=== PATIENT | female | born 1965 | race Two or more races ===

== ENCOUNTER 2022-12-29 08:55 | Outpatient (OUT) | payer OTHER, SELFPAY ==
[2022-12-29 09:39] LABS: Basophils Absolute Auto 0.1 10^3/uL (0.0-0.1); Basophils Percent Auto 0.8 % (0.2-2.0); Eosinophils Absolute Auto 0.3 10^3/uL (0.0-0.7); Eosinophils Percent Auto 3.4 % (0.9-7.0); Hematocrit 41.2 % (36.0-48.0); Hemoglobin 14.2 g/dL (12.0-16.0); Immature Granulocytes Abs Auto 0.07 10^3/uL (0.00-0.03); Immature Granulocytes Pct Auto 0.9 % (0.0-0.5); Lymphocytes Absolute Auto 1.5 10^3/uL (1.2-3.8); Lymphocytes Percent Auto 19.1 % (20.5-60.0); Mean Corpuscular HGB Conc 34.5 g/dL (29.9-35.2); Mean Corpuscular Hemoglobin 30.7 pg (26.7-34.0); Mean Platelet Volume 10.6 fL (9.5-13.5); Monocytes Absolute Auto 0.6 10^3/uL (0.3-0.8); Neutrophils Absolute Auto 5.3 10^3/uL (1.4-6.5); Neutrophils Percent Auto 67.8 % (43.0-75.0); Platelet Count 311 10^3/uL (150-450); Red Blood Count 4.63 10^6/uL (4.20-5.40); Red Cell Distribution Width 12.5 % (11.0-15.0); White Blood Count 7.7 10^3/uL (4.0-11.0)
[2022-12-29 10:01] LABS: Alanine Aminotransferase 95 U/L (14-59); Albumin Globulin Ratio 0.8; Albumin Level 3.4 g/dL (3.4-5.0); Alkaline Phosphatase 137 U/L (46-116); Anion Gap 10.9; Aspartate Amino Transferase 47 U/L (15-37); BUN Creatinine Ratio 15.1; Bilirubin Total 0.3 mg/dL (0.2-1.0); Calcium 9.2 mg/dL (8.5-10.1); Carbon Dioxide 28.3 mmol/L (21.0-32.0); Chloride 102 mmol/L (98-107); Chol HDL Ratio 3.3; Cholesterol 164 mg/dL (<=200); Estimated GFR (African America >60 (>=60); Estimated GFR (Non-African Ame >60 (>=60); Globulin 4.3 g/dL; Glucose 106 mg/dL (74-106); HDL Cholesterol 49 mg/dL (40-60); LDL Cholesterol Calculated 92.4 mg/dL; Potassium 4.2 mmol/L (3.5-5.1); Sodium 137 mmol/L (136-145); Total Protein 7.7 g/dL (6.4-8.2); Triglycerides 113 mg/dL (<=150); VLDL CHOLESTEROL 22.6 mg/dL
[2022-12-29 10:06] LABS: Estimated Average Glucose 140 mg/dL; Glycohemoglobin A1C 6.5 % (4.5-6.2)
== END 2022-12-29 08:56 ==
DX: E11.9 Type 2 diabetes mellitus without complications (principal)
CPT/HCPCS: 36415; 80053; 80061; 83036; 85025

== ENCOUNTER 2023-02-16 06:46 | Emergency (ER) | payer OTHER, SELFPAY ==
[2023-02-16] VITALS (8 sets, daily range): BP systolic 153–178; BP diastolic 86–109; PULSE 71; RESP 16; TEMP 36.6; O2SAT 95; BMI 34.8
--- NOTE | 2023-02-16 07:21 | XR_ITS ---
The [address] [address] Patient Name: SANDRO STEELE MRN: [id number] date: 1965 Sex: F Assigned Patient Location: ER Current Patient Location: ER Accession/Order Number: [id number] Exam Date: 02/16/2023 07:47 Report Date: 02/16/2023 07:58 At the request of: EMPERATRIZ MEDRANO Procedure: XR chest 1V EXAM: XR chest 1V HISTORY: . chest pain . COMPARISON: 01/13/2021 TECHNIQUE: Single view of the chest FINDINGS: Heart and vascularity are unremarkable. Lungs are free of focal infiltrates. EKG leads overlie the chest. XR/XR chest 1V IMPRESSION: No acute heart or lung disease identified. Electronically authenticated by: KAMERON SURESH Date: 02/16/2023 07:58
--- NOTE | 2023-02-16 07:21 | ECG_ITS ---
The [facility] Test Date: 2023-02-16 Pat Name: SANDRO STEELE Department: Room: - Gender: Female Research Statistician: : 1965 Requested By: Order Number: [id number] Reading MD: CHUCK KRAMER Measurements Intervals [place] Rate: 72 P: 40 ID: 144 QRS: -33 QRSD: 90 T: 10 QT: 372 QTc: 397 Interpretive Statements 1100 Sinus rhythm 2420 RSR (QR) in lead V1/V2, consistent with right ventricular conduction delay 5233 Voltage criteria for LVH 7200 Abnormal left axis deviation 9150 abnormal ECG No previous ECG available for comparison Electronically Signed On 02-17-2023 7:04:05 EDT by CHUCK KRAMER
[2023-02-16 07:42] LABS: Basophils Absolute Auto 0.1 10^3/uL (0.0-0.1); Basophils Percent Auto 0.8 % (0.2-2.0); Eosinophils Absolute Auto 0.2 10^3/uL (0.0-0.7); Hemoglobin 14.7 g/dL (12.0-16.0); Immature Granulocytes Abs Auto 0.06 10^3/uL (0.00-0.03); Immature Granulocytes Pct Auto 0.8 % (0.0-0.5); Lymphocytes Absolute Auto 1.3 10^3/uL (1.2-3.8); Lymphocytes Percent Auto 17.1 % (20.5-60.0); Mean Corpuscular HGB Conc 34.2 g/dL (29.9-35.2); Mean Corpuscular Hemoglobin 30.4 pg (26.7-34.0); Monocytes Absolute Auto 0.7 10^3/uL (0.3-0.8); Monocytes Percent Auto 9.5 % (1.7-12.0); Neutrophils Absolute Auto 5.3 10^3/uL (1.4-6.5); Neutrophils Percent Auto 68.8 % (43.0-75.0); Platelet Count 308 10^3/uL (150-450); Red Blood Count 4.83 10^6/uL (4.20-5.40); Red Cell Distribution Width 12.7 % (11.0-15.0); White Blood Count 7.7 10^3/uL (4.0-11.0)
[2023-02-16 07:53] LABS: Alanine Aminotransferase 58 U/L (14-59); Albumin Globulin Ratio 0.8; Albumin Level 3.4 g/dL (3.4-5.0); Alkaline Phosphatase 138 U/L (46-116); Anion Gap 12.4; Aspartate Amino Transferase 24 U/L (15-37); BUN Creatinine Ratio 16.5; Bilirubin Total 0.3 mg/dL (0.2-1.0); Calcium 9.3 mg/dL (8.5-10.1); Carbon Dioxide 27.6 mmol/L (21.0-32.0); Chloride 104 mmol/L (98-107); Estimated GFR (African America >60 (>=60); Estimated GFR (Non-African Ame >60 (>=60); Globulin 4.4 g/dL; Glucose 112 mg/dL (74-106); Sodium 140 mmol/L (136-145); Total Protein 7.8 g/dL (6.4-8.2); Troponin I High Sensitivity 4.5 pg/mL (4.0-51.3)
--- NOTE | 2023-02-16 09:08 | ED.GENADUL1 ---
HPI - General Adult General Chief complaint: Chest Pain Stated complaint: CHEST PAIN Time Seen by Provider: 02/16/23 08:06 Mode of arrival: walk-in History of Present Illness HPI narrative: patient is a 57-year-old female who is presenting to the Emergency Room today with 6-7 days of midsternal chest pain/heartburn and intermittent dizziness. The pain that she is experiencing is intermittent. Patient was admitted to the hospital in September and had a cardiac stress test. Patient was having similar symptoms at that time as well. Patient does have a PCP. Patient does take medication for diabetes and high blood pressure. Stress test showed no acute findings. patient has missed multiple days of work and is requesting a work note since last Wednesday. Patient has not called her PCP. Patient thinks she may have heartburn, she is taking nothing [id number] to help with her symptoms. Patient has a recent traveling. Patient nonsmoker. 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 No dull pain, nausea or vomiting. Patient's pain stays midsternal midepigastric and does not radiate anywhere. No rash. Patient has history of psoriasis. No acute complaints. Patient has had a cardiac stress test and echocardiogram, she's never had a cardiac catheter. Nonsmoker, no cocaine use, no significant family history of cardiac testing early age. All systems are negative except as noted/marked. All systems reviewed and otherwise negative. . Nurses note and vital signs reviewed and patient is not hypoxic. General: The patient appears well and in no apparent distress. Patient is resting comfortably on cart. Patient is not toxic, lethargic, or listless Skin: Warm, dry, no pallor noted. There is no rash noted. No petechiae, purpura. Head: Normocephalic, atraumatic Eye: Normal conjunctiva, no drainage, EOMI. PERRL Ears, Nose, Mouth, and Throat: oral mucosa is moist. Nares patent. Mouth without vesicles. Cardiovascular: Regular Rate and Rhythm, no murmur, gallop, rub. no reproducible tenderness to palpation to the midsternal area, no rash. No anterior, lateral, posterior chest wall pain. Respiratory: Patient is in no distress, no accessory muscle use, lungs are clear to auscultation, no wheezing, rales or rhonchi Back: non-tender, no CVA tenderness bilaterally to percussion. No CT LS midline pain GI: soft, mild midepigastric tenderness palpation that is reproducible, no peritoneal signs, no flank pain bilateral, no tenderness to palpation, no masses appreciated. No rebound, guarding, or rigidity noted. No flank pain bilateral, No distention Musculoskeletal: Patient has full range of motion of all of the extremities, no motor, sensory, or focal neurological deficits Neurological: A&O x3, normal speech Psychiatric: Cooperative Related Data Home Medications Medication Instructions Recorded Confirmed carvedilol 12.5 mg tablet 12.5 mg PO Q12H 02/16/23 02/16/23 escitalopram oxalate 10 mg tablet 10 mg PO DAILY 02/16/23 02/16/23 metformin 500 mg tablet 500 mg PO BID 02/16/23 02/16/23 Previous Rx's Medication Instructions Recorded famotidine 20 mg tablet (Pepcid) 20 mg PO DAILY 20 days #20 tabs 02/16/23 Allergies Allergy/AdvReac Type Severity Reaction Status Date / Time No Known Drug Allergies Allergy Verified 02/16/23 06:57 Exam Constitutional Vital Signs, click to edit/add: Last Vital Signs Temp 98 F 02/16/23 06:55 Pulse 71 02/16/23 06:55 Resp 16 02/16/23 06:55 BP 153/86 H 02/16/23 08:30 Pulse Ox 95 02/16/23 06:55 O2 Del Method Room Air 02/16/23 06:55 Course Vital Signs Vital signs: Vital Signs Temperature 98 F 02/16/23 06:55 Pulse Rate 71 02/16/23 06:55 Respiratory Rate 16 02/16/23 06:55 Blood Pressure 178/109 H 02/16/23 06:55 Pulse Oximetry 95 02/16/23 06:55 Oxygen Delivery Method Room Air 02/16/23 06:55 Temperature 98 F 02/16/23 06:55 Pulse Rate 71 02/16/23 06:55 Respiratory Rate 16 02/16/23 06:55 Blood Pressure 153/86 H 02/16/23 08:30 Pulse Oximetry 95 02/16/23 06:55 Oxygen Delivery Method Room Air 02/16/23 06:55 Medical Decision Making MDM Narrative Medical decision making narrative: patient's chest x-ray, troponin, lab work showed no acute changes. Patient has midsternal and midepigastric intermittent tenderness from past 6 days. Patient will follow-up with PCP, patient was referred to cardiology as well. patient will be started on Pepcid for 2 weeks, using Maalox or Mylanta needed to see if this makes a difference. Patient is asking for a work note since last Wednesday, February 10. Patient was given a work note for today, she can return to work tomorrow. Patient was encouraged to start taking a baby aspirin a day. Patient increase fluids. No indication for admission at this time. Patient had questionable half millimeter elevation in V2, EKG was repeated no acute changes, but there is no concurrent ST elevation, no reciprocal changes, I do not believe this is of clinical significance at this time. Patient has no heavy chest pressure, shortness of breath, radiating pain. Patient looks well. Patient agrees with discharge. Medical Records Medical records reviewed: Yes I reviewed the patient's medical records Medical records narrative: reviewed stress test from October 12 of this year. Lab Data Lab results reviewed: Yes I reviewed the patient's lab results Labs: Lab Results 02/16/23 Range/Units 07:02 WBC 7.7 (4.0-11.0) 10^3/uL RBC 4.83 (4.20-5.40) 10^6/uL Hgb 14.7 (12.0-16.0) g/dL Hct 43.0 (36.0-48.0) % MCV 89.0 (81.0-99.0) fL MCH 30.4 (26.7-34.0) pg MCHC 34.2 (29.9-35.2) g/dL RDW 12.7 (11.0-15.0) % Plt Count 308 (150-450) 10^3/uL MPV 11.0 (9.5-13.5) fL Neut % (Auto) 68.8 (43.0-75.0) % Lymph % (Auto) 17.1 L (20.5-60.0) % Gray % (Auto) 9.5 (1.7-12.0) % Eos % (Auto) 3.0 (0.9-7.0) % Baso % (Auto) 0.8 (0.2-2.0) % Neut # (Auto) 5.3 (1.4-6.5) 10^3/uL Lymph # (Auto) 1.3 (1.2-3.8) 10^3/uL Gray # (Auto) 0.7 (0.3-0.8) 10^3/uL Eos # (Auto) 0.2 (0.0-0.7) 10^3/uL Baso # (Auto) 0.1 (0.0-0.1) 10^3/uL Abs Immat Gran (auto) 0.06 H (0.00-0.03) 10^3/uL Imm/Tot Granulo (auto) 0.8 H (0.0-0.5) % Sodium 140 (136-145) mmol/L Potassium 4.0 (3.5-5.1) mmol/L Chloride 104 (98-107) mmol/L Carbon Dioxide 27.6 (21.0-32.0) mmol/L Anion Gap 12.4 BUN 13.0 (7.0-18.0) mg/dL Creatinine 0.79 (0.55-1.02) mg/dL Est GFR ( Amer) >60 (>=60) Est GFR (Non-Af Amer) >60 (>=60) BUN/Creatinine Ratio 16.5 Glucose 112 H (74-106) mg/dL Calcium 9.3 (8.5-10.1) mg/dL Total Bilirubin 0.3 (0.2-1.0) mg/dL AST 24 (15-37) U/L ALT 58 (14-59) U/L Alkaline Phosphatase 138 H (46-116) U/L Troponin I High Sens 4.5 (4.0-51.3) pg/mL Total Protein 7.8 (6.4-8.2) g/dL Albumin 3.4 (3.4-5.0) g/dL Globulin 4.4 g/dL Albumin/Globulin Ratio 0.8 ECG Data Attestation: I personally reviewed and interpreted this ECG as follows: Interpretation: EKG interpretation. EKG #1. Normal sinus rhythm at 72 beats a minute. Normal axis deviation. No acute ST elevation, no acute ectopy. Questionable half millimeter elevation in V2, no reciprocal changes, no other signs of ST elevation. EKG will be repeated. EKG #2. Normal sinus rhythm at 65 beats a minute. Normal axis deviation. No acute ST elevation, no acute ectopy. QTC of 397. Half millimeter elevation is still V2, but no other acute changes, no reciprocal changes. Discharge Plan Discharge Chief Complaint: Chest Pain Clinical Impression: Gastritis, Atypical chest pain, Chest pain Patient Disposition: Home, Self-Care Condition: Fair Prescriptions / Home Meds: New famotidine [Pepcid] 20 mg tablet 20 mg PO DAILY 20 Days Qty: 20 0RF No Action carvedilol 12.5 mg tablet 12.5 mg PO Q12H escitalopram oxalate 10 mg tablet 10 mg PO DAILY metformin 500 mg tablet 500 mg PO BID Instructions: Chest Pain (ED), Gastritis (ED) Additional Instructions: use [id number] Maalox or Mylanta if needed for heartburn. Follow-up with PCP and he may need to be referred to chair car attendant if indicated. Start taking Pepcid daily for 2 weeks to see if this helps with some of her symptoms. Stand Alone Forms: Work/School Release, Portal Instructions Referrals: Davin Mosquera MD [Physician] - 1 week Physician,Non-Staff, [Primary Care Provider] - 1 week Discharge Date/Time: 02/16/23 09:10
--- NOTE | 2023-02-16 09:19 | ECG_ITS ---
The [facility] Test Date: 2023-02-16 Pat Name: SANDRO STEELE Department: Room: - Gender: Female Seismograph Shooter: : 1965 Requested By: [id number] Order Number: [id number] Reading MD: CHUCK KRAMER Measurements Intervals [place] Rate: 65 P: 46 ND: 152 QRS: -31 QRSD: 88 T: -1 QT: 386 QTc: 397 Interpretive Statements 1100 Sinus rhythm 2420 RSR (QR) in lead V1/V2, consistent with right ventricular conduction delay 5233 Voltage criteria for LVH 7200 Abnormal left axis deviation 9150 abnormal ECG Compared to ECG 02/16/2023 06:57:21 Myocardial infarct finding no longer present Electronically Signed On 02-17-2023 7:04:22 EDT by CHUCK KRAMER
== END 2023-02-16 09:10 | disposition home or self-care (01) ==
PROVIDERS: Emergency Provider Emergency Medicine
DX: R07.89 Other chest pain (principal); K29.70 Gastritis, unspecified, without bleeding; E11.9 Type 2 diabetes mellitus without complications; I10 Essential (primary) hypertension; L40.9 Psoriasis, unspecified; Z79.899 Other long term (current) drug therapy; Z79.84 Long term (current) use of oral hypoglycemic drugs
CPT/HCPCS: 36415; 71045; 80053; 84484; 85025; 93005; 99285

== ENCOUNTER 2023-04-20 09:11 | Outpatient (OUT) | payer OTHER, SELFPAY ==
[2023-04-20 10:38] LABS: Hematocrit 41.9 % (36.0-48.0); Hemoglobin 13.7 g/dL (12.0-16.0); Mean Corpuscular HGB Conc 32.7 g/dL (29.9-35.2); Mean Corpuscular Hemoglobin 29.9 pg (26.7-34.0); Mean Corpuscular Volume 91.5 fL (81.0-99.0); Platelet Count 288 10^3/uL (150-450); Red Blood Count 4.58 10^6/uL (4.20-5.40); Red Cell Distribution Width 12.8 % (11.0-15.0); White Blood Count 6.6 10^3/uL (4.0-11.0)
[2023-04-20 12:05] LABS: Estimated Average Glucose 148 mg/dL; Glycohemoglobin A1C 6.8 % (4.5-6.2)
[2023-04-20 15:52] LABS: Alanine Aminotransferase 63 U/L (14-59); Anion Gap 10.6; Aspartate Amino Transferase 24 U/L (15-37); Bilirubin Total 0.3 mg/dL (0.2-1.0); Calcium 8.5 mg/dL (8.5-10.1); Carbon Dioxide 27.8 mmol/L (21.0-32.0); Chloride 104 mmol/L (98-107); Estimated GFR (African America >60 (>=60); Estimated GFR (Non-African Ame >60 (>=60); Glucose 170 mg/dL (74-106); Potassium 4.4 mmol/L (3.5-5.1); Sodium 138 mmol/L (136-145)
[2023-04-20 15:53] LABS: Albumin Globulin Ratio 0.8; Albumin Level 3.3 g/dL (3.4-5.0); Alkaline Phosphatase 152 U/L (46-116); Chol HDL Ratio 3.7; Cholesterol 173 mg/dL (<=200); Globulin 4.1 g/dL; HDL Cholesterol 47 mg/dL (40-60); Total Protein 7.4 g/dL (6.4-8.2); Triglycerides 125 mg/dL (<=150)
== END 2023-04-20 09:12 | disposition home or self-care (01) ==
LOC: LAB 09:12
PROVIDERS: PCP Physician Assistant; Visit Provider Physician Assistant
DX: E11.9 Type 2 diabetes mellitus without complications (principal)
CPT/HCPCS: 36415; 80053; 80061; 83036; 85027

== ENCOUNTER 2023-05-14 11:14 | Outpatient (OUT) | payer OTHER, SELFPAY ==
--- NOTE | 2023-05-14 11:20 | MM_ITS ---
Patient: SANDRO STEELE Exam Date: 05/14/2023 : 1965 Gender:F Ordering : MR. Ming Goldstein PA-C Admission #: [id number] Family : Order #: [id number] CLICK HERE TO VIEW EXAM RADIOLOGY REPORT PROCEDURE: MM TOMOSYNTHESIS SCREENING BI COMPARISON: None. INDICATIONS: Screening Calculator Name NCI Breast Cancer Risk Assessment Tool 5 Year Breast Cancer Risk 1.30% Lifetime Breast Cancer Risk 7.00% Personal Breast Cancer No Personal Ovarian Cancer No Treatments None Family Cancers None LOCATION: [facility] BREAST COMPOSITION: Heterogeneously dense,which may obscure small masses. FINDINGS: DIAGNOSTIC CATEGORY 2--BENIGN FINDING: RIGHT BREAST: No significant suspicious finding. Scattered benign-appearing lymph nodes are present. LEFT BREAST: No significant suspicious finding. Scattered benign-appearing lymph nodes are present. RECOMMENDATIONS: ROUTINE MAMMOGRAM AND CLINICAL EVALUATION IN 12 MONTHS. PLEASE NOTE: A NORMAL MAMMOGRAM DOES NOT EXCLUDE THE POSSIBILITY OF BREAST CANCER. A CLINICALLY SUSPICIOUS PALPABLE LUMP SHOULD BE BIOPSIED. Dictated by: Dell Winn M.D. on 05/18/2023 at 13:28 Approved by: Dell Winn M.D. on 05/18/2023 at 13:41
== END 2023-05-14 11:15 | disposition home or self-care (01) ==
LOC: MAMMO 11:14
PROVIDERS: PCP Physician Assistant; Visit Provider Physician Assistant
DX: Z12.31 Encounter for screening mammogram for malignant neoplasm of breast (principal)
CPT/HCPCS: 77063; 77067

== ENCOUNTER 2023-06-26 08:01 | Outpatient (OUT) | payer OTHER, SELFPAY ==
[2023-06-26 08:26] LABS: Basophils Absolute Auto 0.1 10^3/uL (0.0-0.1); Basophils Percent Auto 0.8 % (0.2-2.0); Eosinophils Absolute Auto 0.3 10^3/uL (0.0-0.7); Hematocrit 43.3 % (36.0-48.0); Hemoglobin 14.2 g/dL (12.0-16.0); Immature Granulocytes Abs Auto 0.06 10^3/uL (0.00-0.03); Immature Granulocytes Pct Auto 0.8 % (0.0-0.5); Lymphocytes Absolute Auto 1.4 10^3/uL (1.2-3.8); Lymphocytes Percent Auto 17.4 % (20.5-60.0); Mean Corpuscular HGB Conc 32.8 g/dL (29.9-35.2); Mean Corpuscular Hemoglobin 29.8 pg (26.7-34.0); Mean Platelet Volume 10.5 fL (9.5-13.5); Monocytes Absolute Auto 0.6 10^3/uL (0.3-0.8); Neutrophils Absolute Auto 5.4 10^3/uL (1.4-6.5); Platelet Count 292 10^3/uL (150-450); Red Blood Count 4.76 10^6/uL (4.20-5.40); Red Cell Distribution Width 12.6 % (11.0-15.0); White Blood Count 7.8 10^3/uL (4.0-11.0)
[2023-06-26 08:34] LABS: Estimated Average Glucose 154 mg/dL
[2023-06-26 09:14] LABS: Alanine Aminotransferase 66 U/L (14-59); Albumin Globulin Ratio 0.8; Albumin Level 3.3 g/dL (3.4-5.0); Alkaline Phosphatase 157 U/L (46-116); Anion Gap 12.9; Aspartate Amino Transferase 27 U/L (15-37); Bilirubin Total 0.3 mg/dL (0.2-1.0); Calcium 8.6 mg/dL (8.5-10.1); Carbon Dioxide 25.5 mmol/L (21.0-32.0); Chloride 103 mmol/L (98-107); Chol HDL Ratio 4.5; Cholesterol 190 mg/dL (<=200); Estimated GFR (African America >60 (>=60); Estimated GFR (Non-African Ame >60 (>=60); Glucose 156 mg/dL (74-106); HDL Cholesterol 42 mg/dL (40-60); Potassium 4.4 mmol/L (3.5-5.1); Sodium 137 mmol/L (136-145); Total Protein 7.3 g/dL (6.4-8.2); Triglycerides 187 mg/dL (<=150); VLDL CHOLESTEROL 37.4 mg/dL
== END 2023-06-26 08:02 | disposition home or self-care (01) ==
LOC: LAB 08:02
PROVIDERS: PCP Physician Assistant; Visit Provider Physician Assistant
DX: E11.9 Type 2 diabetes mellitus without complications (principal)
CPT/HCPCS: 36415; 80053; 80061; 83036; 85025

== ENCOUNTER 2023-07-24 10:00 | Outpatient (OUT) | payer OTHER, SELFPAY ==
--- OUTSIDE RECORDS SUMMARY | 2023-07-24 10:02 | XMS_ITS | CCD ---
Author Name Unknown Address [address] [place] [address] Organization [facility] Care Team Providers Care Prosthetic Makeup Designer Name Role Phone Unavailable Primary Care Provider UnavailTITA Keenan Attending Unavailable MORALES ANGULO Primary Care Physician Siobhan Meyers Unavailable Cassandra Dumont Unavailable DR ROMAIN CAN Consulting Unavailyoni geller ROSE MARIE ., FELIBERTO Attending Unavailable REQUEST, NONE LISTED Primary Care Unavaila ble ROSE MARIE ., FELIBERTO Admitting Unavailable DR DELL WINN Consulting Unavailable TERESSA OLIVEROS Consulting Unavailable ROSE MARIE Adair, FELIBERTO Consulting Unavailable TERESSA OLIVEROS Attending Unavailable TERESSA OLIVEROS Attending Unavailable PACHECO BURNS Attending Unavailable Unavailable Primary Care Provider UnavailSamra Sexton Unavailable CHRIS DHILLON Attending Unavailable Medications Current Medications Medication Drug Class(es) Dates Sig (Normalized) Sig (Original) carvedilol (1 source) alpha-Adrenergic Ann, beta-Adrenergic Ann Carvedilol Active escitalopram 10 mg oral tablet (1 source) Serotonin Reuptake Inhibitor Escitalopram Oxalate 10 MG Oral for 90 Active hydroCHLOROthiazide 12.5 mg / losartan potassium 50 mg oral tablet (1 source) Thiazide Diuretic, Angiotensin 2 Receptor Ann take 1 tablet by mouth every twenty-four hours Losartan Potassium-HCTZ 50-12.5 MG 1 tablet Orally Once a day Active Hydrochlorothiazide-12. 5 mg 12.5 mg (2 sources) take 1 tablet by mouth once daily Hydrochlorothiazide-1 2.5 mg 12.5 mg 1 tablet Orally Once a day Active hydrocortisone 10 mg/ml / neomycin 3.5 mg/ml / polymyxin b 39891 unt/ml otic solution (1 source) Aminoglycoside Antibacterial, Polymyxin-class Antibacterial, Corticosteroid Start: 09-20-19 Uqbjzkzp-Ibxpistnm-SM 3.5-02221-1 4 drops into affected ear Otic Three times a day for 7 day(s) Aug, Active hydrOXYzine (1 source) Antihistamine hydrOXYzine HCl Active Losartan (1 source) Angiotensin 2 Receptor Ann Losartan Potassium Active methylPREDNISolone 4 mg oral tablet (1 source) Corticosteroid Start: 09-20-19 methylPREDNISolone 4 MG as directed Orally Once a day for 6 days Aug, Active ondansetron 4 mg oral tablet (2 sources) Serotonin-3 Receptor Antagonist Start: 06-30-20 take 1 tablet by mouth every eight hours as needed Ondansetron HCl 4 MG 1 tablet Orally every 8 hours as needed for 7 days Jun, Active Start: 12-18-2021 take 1 tablet by bambi th every eight hours as needed Zofran ODT 4 MG 1 tablet on the tongue and allow to dissolve Orally every 8 hrs as needed for 4 days November, Active SITagliptin (1 source) Dipeptidyl Peptidase 4 Inhibitor Januvia Active Completed/Discontinued Medications Medication Drug Class(es) Dates Sig (Normalized) Sig (Original) iopamidol (ISOVUE-370) 76 % injection 100 mL (1 source) Start: 01-13-2021 End: 01-13-2021 iopamidol (ISOVUE-370) 76 % injection 100 mL Problems Active Problems Problem Classification Problem Date Documented Da te Episodic/Chronic Anxiety disorders (1 source) Anxiety state; Translations: [Generalized anxiety disorder] Chronic Diabetes mellitus with complications (1 source) Type 2 diabetes mellitus with hyperglycemia; Translations: [TYPE 2 DM W/HYPERGLYCEMIA] Onset: 10-15-2022 Chronic Disorders of lipid metabolism (1 source) Hyperlipidemia, unspecified; Translations: [HYPERLIPIDEMIA UNSPECIFIED] Onset: 10-15-2022 Chronic Essential hypertension (3 sources) Essential (primary) hypertension; Translations: [Hypertensive disorder] Onset: 10-15-2022 Chronic Immunizations and screening for infectious disease (5 sources) Suspected clinical finding; Translations: [Contact with and (suspected) exposure to other viral communicable diseases] Episodic Nausea and vomiting (1 source) Nausea Episodic Nonspecific chest pain (7 sources) Chest pain; Translations: [Chest pain, unspecified] Onset: 10-12-2022 Episodic Other aftercare (1 source) Other watermelon inspector (current) drug therapy; Translations: [OTH HALF-WAY CURRENT DRUG THERAPY] Onset: 10-15-2022 Episodic Other ear and sense organ disorders (1 source) Other infective otitis externa, bilateral Episodic Other ear and sense organ disorders (1 source) Impacted cerumen, left ear Episodic Other liver diseases (1 source) Abnormal levels of other serum enzymes; Translations: [ABNORMAL LEVELS OTHER SERUM ENZYMES] Onset: 10-15-2022 Episodic Other lower respiratory disease (4 sources) Cough; Translations: [Cough] Episodic Other upper respiratory infections (4 sources) Acute upper respiratory infection, unspecified; Translations: [Acute laryngitis] Episodic Substance-related disorders (1 source) Nicotine dependence, cigarettes, uncomplicated; Translations: [NICOTINE DEPEND CIGARETTES UNCOMP] Onset: 10-15-2022 Chronic Unclassified (1 source) CONTACT W/AND (SUSP) EXPOS COVID-19; Translations: [CONTACT W/AND (SUSP) EXPOS COVID-19] Onset: 10-15-2022 Past or Other Problems Problem Classification Problem Date Documented Da te Episodic/Chronic Unclassified (1 source) Exposure to 2019 novel coronavirus; Translations: [Contact with and (suspected) exposure to COVID19] Unclassified (1 source) Cough R05.9 Onset: 12-18-2021 Resolved: 12-18-2021 Viral infection (1 source) COVID-19 Onset: 12-18-2021 Resolved: 12-18-2021 Results Test Name Value Interpretation Reference Range Facility COVID/FLU RT-PCRon 3 SARS-CoV-2 (COVID-19) RNA RIDGE+probe Ql (Unsp spec) Negative [facility] Other COVID/FLU RT-PCR Negative [facility] [employer] Other Office Visiton 01-05-2023 Follow-up visit [id number] Sandro Severino 1965 F Date Provider Department Center 01/05/2023 Javier-TERESSA OLIVEROS CARD [facility] No family history on file Level of Service:73437 [place] OFFICE/OUTPATIENT ESTABLISHED LOW MDM 20-29 MIN Reason for Visit and Comments: Hypertension [182717] Normal [facility] 36on 12-24-2022 36 Her BP is more often running above goal. Would like to see her average BP running <130/90. We can either have her resume her losartan/hydrochloro thiazide or we can increase her carvedilol to 12.5mg BID. Normal [facility] Office Visiton 12-09-2022 Follow-up visit [id number] Sandro Severino 1965 F Date Provider Department Center 12/09/[address] [facility] No family history on file Level of Service:51862 [place] OFFICE/OUTPATIENT ESTABLISHED MOD MDM 30-39 MIN Reason for Visit and Comments: Follow-up [402452] - 1 mo. Follow up [facility] Office Visiton 10-30-2022 Follow-up visit [id number] Sandro Severino 1965 F Date Provider Department Center 10/30/2022 3848-PACHECO BURNS [facility] No family history on file Level of Service:23992 [place] OFFICE/OUTPATIENT ESTABLISHED MOD MDM 30-39 MIN Reason for Visit and Comments: Chest Pain [160028] - f/u tbh hypertension chest pain pt states last night she was having some chest pain and headache last night Normal [facility] CBC AUTO DIFFon 10-13-2022 BASO # 0.1 103/ul Normal 0.0-0.1 [facility] Comment on above: Performed By: #### P OCGLUC #### [facility] [address] [place] [address] Dr. Gibson Jin Basophils/100 WBC (Bld) 1.0 % Normal 0.2-2.0 [facility] Comment on above: Performed By: #### P OCGLUC #### [facility] [address] [place] [address] Dr. Gibson Jin EO # 0.2 103/ul Normal 0.0-0.7 [facility] Comment on above: Performed By: #### P OCGLUC #### [facility] [address] [place] [address] Dr. Gibson Jin Eosinophils/100 WBC (Bld) 3.9 % Normal 0.9-7.0 [facility] Comment on above: Performed By: #### P OCGLUC #### [facility] [address] [place] [address] Dr. Gibson Jin Erythrocyte distribution width (RBC) [Ratio] 12.4 % Normal 11.0-15.0 [facility] Comment on above: Performed By: #### P OCGLUC #### [facility] [address] [place] [address] Dr. Gibson Jin Hematocrit (Bld) [Volume fraction] 43.4 % Normal 36.0-48.0 [facility] Comment on above: Performed By: #### P OCGLUC #### [facility] [address] [place] [address] Dr. Gibson Jin Hemoglobin (Bld) [Mass/Vol] 14.7 g/dL Normal 12.0-16.0 [facility] Comment on above: Performed By: #### P OCGLUC #### [facility] [address] [place] [address] Dr. Gibson Jin IG # 0.09 10e3/ul Critically high 0.00-0.03 [facility] Comment on above: Performed By: #### P OCGLUC #### [facility] [address] [place] [address] Dr. Gibson Jin IG % 1.5 % Critically high 0.0-0.5 [facility] Comment on above: Performed By: #### P OCGLUC #### [facility] [address] [place] [address] Dr. Gibson Jin LYMPH # 1.2 103/ul Normal 1.2-3.8 [facility] Comment on above: Performed By: #### P OCGLUC #### [facility] [address] [place] [address] Dr. Gibson Jin Lymphocytes/100 WBC (Bld) 19.4 % Critically low 20.5-60.0 [facility] Comment on above: Performed By: #### P OCGLUC #### [facility] [address] [place] [address] Dr. Gibson Jin MANUAL DIFF REQ NO Normal [facility] Comment on above: Performed By: #### P OCGLUC #### [facility] [address] [place] [address] Dr. Gibson Jin MCH (RBC) [Entitic mass] 30.2 pg Normal 26.7-34.0 [facility] Comment on above: Performed By: #### P OCGLUC #### [facility] [address] [place] [address] Dr. Gibson Jin MCHC (RBC) [Mass/Vol] 33.9 g/dL Normal 29.9-35.2 [facility] Comment on above: Performed By: #### P OCGLUC #### [facility] [address] [place] [address] Dr. Gibson Jin MCV (RBC) [Entitic vol] 89.1 fL Normal 81.0-99.0 [facility] Comment on above: Performed By: #### P OCGLUC #### [facility] [address] [place] [address] Dr. Gibson Jin MONO # 0.4 103/ul Normal 0.3-0.8 [facility] Comment on above: Performed By: #### P OCGLUC #### [facility] [address] [place] [address] Dr. Gibson Jin Monocytes/100 WBC (Bld) 6.9 % Normal 1.7-12.0 [facility] Comment on above: Performed By: #### P OCGLUC #### [facility] [address] [place] [address] Dr. Gibson Jin NEUT # 4.1 103/ul Normal 1.4-6.5 [facility] Comment on above: Performed By: #### P OCGLUC #### [facility] [address] [place] [address] Dr. Gibson Jin Neutrophils/100 WBC (Bld) 67.3 % Normal 43.0-75.0 [facility] Comment on above: Performed By: #### P OCGLUC #### [facility] [address] [place] [address] Dr. Gibson Jin Platelet mean volume (Bld) [Entitic vol] 10.3 fL Normal 9.5-13.5 [facility] Comment on above: Performed By: #### P OCGLUC #### [facility] [address] [place] [address] Dr. Gibson Jin PLT 273 103/ul Normal 150-450 [facility] Comment on above: Performed By: #### P OCGLUC #### [facility] [address] [address] [address] Gibson Jin RBC 4.87 106/ul Normal 4.20-5.40 [facility] Comment on above: Performed By: #### P OCGLUC #### [facility] [address] [place] [address] Dr. Gibson Jin WBC 6.1 103/ul Normal 4.0-11.0 [facility] Comment on above: Performed By: #### P OCGLUC #### [facility] [address] [place] [address] Dr. Gibson Jin ECHOCARDIO M/2D COMPLETEon 0 10-13-2022 ECHOCARDIO M/2D COMPLETE Patient: SANDRO SEVERINO Exam Date: 10/13/2022 : 1965 Gender:F Ordering : FELIBERTO TROTTER . Admission #: [id number] Family : Order #: [id number] CLICK HERE TO VIEW EXAM ECHOCARDIOGRAM REPORT PROCEDURE: CARDIO PULMONARY ECHOCARDIO M/2D COMP INDICATIONS: Chest pain COMPARISON: None. DESCRIPTION: COMPLETE ECHOCARDIOGRAM Real-time transthoracic echocardiography with 2D, M-mode, spectral and color flow Doppler performed. QUALITY: Technical quality was adequate. LEFT VENTRICLE: Normal chamber size. Normal left ventricular wall thickness. LV EF: Normal left ventricular ejection fraction, (>55%). DIASTOLIC: Normal diastolic function. ATRIAL SEPTUM: Inadequately seen. LEFT ATRIUM: Normal chamber size. RIGHT ATRIUM: Normal chamber size. RIGHT VENTRICLE: Normal chamber size. Normal right ventricular systolic function. TRICUSPID VALVE: Normal mobility and thickness. No stenosis with mild regurgitation. No evidence of pulmonary hypertension. RVSP 34 mmHg MITRAL VALVE: Normal mobility and thickness. No evidence of mitral valve stenosis. There is no mitral annular calcification. No mitral regurgitation. AORTIC VALVE: Normal trileaflet appearance. No visible sclerosis. Normal leaflet mobility. No evidence of aortic valve stenosis. No aortic regurgitation. AORTIC ROOT: Normal diameter and appearance. PULMONIC VALVE: Normal thickness and mobility. No stenosis. No regurgitation. PERICARDIUM: No evidence of pericardial effusion. IVC: Not well visualized. CONCLUSION: Global left ventricular systolic function is normal; visually estimated ejection fraction is 55 to 60%. No significant wall motion abnormalities. The right ventricle is normal in size and systolic function. Normal diastolic function. Mild tricuspid regurgitation. Adult Echocardiography Procedure Report Left Ventricle LVEDD (3.7 - 5.6 cm): 4.02 cm LVESD (2.2 - 4.0 cm): 2.55 cm LVIVS thickness (0.6 - 1.2 cm): 0.90 cm LVPW thickness (0.5 - 1.0 cm): 0.86 cm e': 0.08 m/s E - e': 6.10 LVOT Max Gradient: 4.05 mm[Hg] Peak Velocity (LVOT): 1.01 m/s LVOT Diameter 1.99 cm Left Ventricular Ejection Fraction: 66.99 %, 66.99 % Left Atrium LA Volume Index (2D A2C): 38.96 ml, 38.96 ml Left Atrium Systolic Dimension: 3.49 cm Mitral Valve MV E to A Ratio: 0.88, 0.62 Mitral Valve A-Wave Peak Velocity: 0.59 m/s, 0.71 m/s Mitral Valve E-Wave Peak Velocity: 0.53 m/s, 0.44 m/s Right Ventricle Aorta AO Root Diam: 2.70 cm Aortic Valve AoV Area (Peak Benjamin): 2.89 cm2, 2.89 cm2 Peak Velocity(Antegrade Flow): 1.08 m/s Peak Gradient(Antegrade Flow): 4.69 mm[Hg] Tricuspid Valve Peak Velocity (Regurgitant Flow): 2.79 m/s Peak Velocity: 0.65 m/s Pulmonic Valve Peak Velocity: 1.15 m/s, 1.07 m/s Peak Gradient: 5.27 mm[Hg], 4.61 mm[Hg] Right Atrium Right Atrium Systolic Pressure: 33.80 ml, 33.80 ml Dictated by: Davin Mosquera M.D. on 10/13/2022 at 15:41 Approved by: Davin Mosquera M.D. on 10/13/2022 at 15:43 Normal [facility] GLYCOHEMOGLOBIN A1Con 2022 ADA RECOMMENDATION SEE BELOW Normal [facility] Comment on above: Result Comment: ADA RECOMMENDED LIMIT 4.0 - 6.0 ADA THERAPEUTIC TARGET < 7.0 ACTION SUGGESTED > 7.0 Performed By: #### A 1C #### [facility] [address] [place] [address] Dr. Gibson Jin Glucose [Mass/Vol] 197 mg/dL Normal [facility] Comment on above: Performed By: #### A 1C #### [facility] [address] [place] [address] Dr. Gibson Jin HbA1c (Bld) [Mass fraction] 8.5 % Critically high 4.5-6.2 [facility] Comment on above: Performed By: #### A 1C #### [facility] [address] [place] [address] Dr. Gibson Jin LIPID PROFILEon 10-13-2022 CHOL-HDL RATIO NORM SEE BELOW Normal [facility] Comment on above: Result Comment: 3.3 - 4.4 LOW RISK 4.4 - 7.1 AVERAGE RISK 7.1 - 11.0 MODERATE RISK >11.0 HIGH RISK Performed By: #### T SH, CMP, LIPID #### [facility] [address] [place] [address] Dr. Gibson Jin Cholesterol [Mass/Vol] 167 mg/dL Normal <=200 [facility] Comment on above: Performed By: #### T SH, CMP, LIPID #### [facility] [address] [place] [address] Dr. Gibson Jin Cholesterol in HDL [Mass/Vol] 45 mg/dL Normal 40-60 [facility] Comment on above: Performed By: #### T SH, CMP, LIPID #### [facility] [address] [place] [address] Dr. Gibson Jin Cholesterol in LDL [Mass/Vol] 93.4 mg/dL Normal [facility] Comment on above: Performed By: #### T SH, CMP, LIPID #### [facility] [address] [address] [address] Gibson Jin Cholesterol.total/Chol esterol in HDL [Mass ratio] 3.7 {ratio} Normal [facility] Comment on above: Performed By: #### T SH, CMP, LIPID #### [facility] [address] [address] [address] Gibson Jin HDL NORMAL > or = 60 mg/dl - LOW CARDIOVASCULAR RISK <40 mg/dl - HIGH CARDIOVASCULAR RISK Normal [facility] Comment on above: Performed By: #### T SH, CMP, LIPID #### [facility] [address] [address] [address] Gibson Jin LDL CALC NORMAL SEE BELOW Normal [facility] Comment on above: Result Comment: <100 mg/dl OPTIMAL 100 - 129 mg/dl NEAR OR ABOVE OPTIMAL 130 - 159 mg/dl BORDERLINE HIGH 160 - 189 mg/dl HIGH >190 mg/dl VERY HIGH Performed By: #### T JENNIFER, CMP, LIPID #### [facility] [address] [address] [address] Gibson iJn Triglyceride [Mass/Vol] 143 mg/dL Normal <=150 [facility] Comment on above: Performed By: #### T JENNIFER CMP, LIPID #### [facility] [address] [address] [address] Gibson Jin VLDL CALC 28.6 mg/dL Normal [facility] Comment on above: Performed By: #### T JENNIFER CMP, LIPID #### [facility] [address] [address] [address] Gibson Jin NM STRESS/REST MULTIon 10-13 NM STRESS/REST MULTI Patient: SANDRO SEVERINO Exam Date: 10/13/2022 : 1965 Gender:F Ordering : TERESSA OLIVEROS [facility] Admission #: [id number] Family : FELIBERTO TROTTER . Order #: [id number] CLICK HERE TO VIEW EXAM RADIOLOGY REPORT PROCEDURE: RADIONUCLIDE IMAGING STRESS/REST MULTI COMPARISON: None. INDICATIONS: CHEST PAIN, UNSPECIFIED TECHNIQUE: Exam Description: Stress/Rest two day protocol gated SPECT Rest Imagin.7 mCi Tc-99m Cardiolite IV on 10/13/2022 Stress Imaging 30.7 mCi Tc-99m Cardiolite IV on 10/13/2022 Exercise Protocol: Biju Heart Rate (bpm): Rest: 88 Max: 151 PMHR: 93 Blood Pressure: Rest: 126/76 Max: 164/80 Exercise Time: Minutes: 5 Seconds: 51 Stage Reached: Stage: 2 Mets 7.0 Symptoms: Rest and peak stress ECG findings were pending and the exercise portion of the study was pending per attending physician Dr. Seth lizarraga topending stress ecg report. For more details please see separate cardiac stress test report. FINDINGS: QUALITY OF STUDY: Excellent. PERFUSION DEFECT: None. LOCATION: N/A SIZE: N/A. SEVERITY: N/A. TYPE: N/A. WALL MOTION: Normal. LV SIZE: Normal. 49 mL. TID / TCD: None; 1.1 LVEF: Normal. Calculated EF 73%. SUMMARY: Myocardial perfusion imaging study is NORMAL. CONCLUSION: 1. Normal nuclear medicine myocardial perfusion scan. Dictated by: Dell Winn M.D. on 10/13/2022 at 14:58 Approved by: Dell Winn M.D. on 10/13/2022 at 15:00 Normal [facility] POINT OF CARE GLUCOSEon 09-24 Glucose [Mass/Vol] 372 mg/dL Critically high 74-106 [facility] Comment on above: Performed By: #### P OCGLUC #### [facility] [address] [address] [address] Gibson Jin Glucose [Mass/Vol] 131 mg/dL Critically high 74-106 [facility] Comment on above: Performed By: #### P OCGLUC #### [facility] [address] [address] [address] Gibson Jin PROF 14(COMP METB)on 023 Albumin [Mass/Vol] 3.3 g/dL Critically low 3.4-5.0 Th [facility] Comment on above: Performed By: #### T SH, CMP, LIPID #### [facility] [address] [address] [address] Gibson Jin Albumin/Globulin [Mass ratio] 0.9 {ratio} Normal [facility] Comment on above: Performed By: #### T SH, CMP, LIPID #### [facility] [address] [place] [address] Dr. Gibson Jin ALP [Catalytic activity/Vol] 123 U/L Critically high 46-116 [facility] Comment on above: Performed By: #### T SH, CMP, LIPID #### [facility] [address] [place] [address] Dr. Gibson Jin ALT [Catalytic activity/Vol] 223 U/L Critically high 14-59 [facility] Comment on above: Performed By: #### T SH, CMP, LIPID #### [facility] [address] [place] [address] Dr. Gibson Jin Anion gap [Moles/Vol] 10.0 mmol/L Normal [facility] Comment on above: Performed By: #### T SH, CMP, LIPID #### [facility] [address] [place] [address] Dr. Gibson Jin AST [Catalytic activity/Vol] 113 U/L Critically high 15-37 [facility] Comment on above: Performed By: #### T SH, CMP, LIPID #### [facility] [address] [place] [address] Dr. Gibson Jin Bilirubin [Mass/Vol] 0.7 mg/dL Normal 0.2-1.0 [facility] Comment on above: Performed By: #### T SH, CMP, LIPID #### [facility] [address] [place] [address] Dr. Gibson Jin Calcium [Mass/Vol] 9.1 mg/dL Normal 8.5-10.1 [facility] Comment on above: Performed By: #### T SH, CMP, LIPID #### [facility] [address] [place] [address] Dr. Gibson Jin Chloride [Moles/Vol] 102 mmol/L Normal 98-107 [facility] Comment on above: Performed By: #### T SH, CMP, LIPID #### [facility] [address] [place] [address] Dr. Gibson Jin CO2 [Moles/Vol] 30.0 mmol/L Normal 21.0-32.[address] [facility] Comment on above: Performed By: #### T SH, CMP, LIPID #### [facility] [address] [address] [address] Gibson Jin Creatinine [Mass/Vol] 0.73 mg/dL Normal 0.55-1.02 [facility] Comment on above: Performed By: #### T SH, CMP, LIPID #### [facility] [address] [address] [address] Gibson Jin EGFR-AF VENEZUELAN >60 Normal >=[address] [facility] Comment on above: Performed By: #### T JENNIFER, CMP, LIPID #### [facility] [address] [address] [address] Gibson Jin EGFR-NON AF VENEZUELAN >60 Normal >=60 [facility] Comment on above: Performed By: #### T JENNIFER, CMP, LIPID #### [facility] [address] [address] [address] Gibson Jin Globulin (S) [Mass/Vol] 3.5 g/dL Normal [facility] Comment on above: Performed By: #### T JENNIFER CMP, LIPID #### [facility] [address] [address] [address] Gibson Jin Glucose [Mass/Vol] 165 mg/dL Critically high 74-106 [facility] Comment on above: Performed By: #### T JENNIFER, CMP, LIPID #### [facility] [address] [address] [address] Gibson Jin Potassium [Moles/Vol] 4.0 mmol/L Normal 3.5-5.1 [facility] Comment on above: Performed By: #### T SH, CMP, LIPID #### [facility] [address] [address] [address] Gibson Jin Protein [Mass/Vol] 6.8 g/dL Normal 6.4-8.2 [facility] Comment on above: Performed By: #### T SH, CMP, LIPID #### [facility] [address] [address] [address] Gibson Jin Sodium [Moles/Vol] 138 mmol/L Normal 136-145 [facility] Comment on above: Performed By: #### T SH, CMP, LIPID #### [facility] [address] [address] [address] Gibson Jin Urea nitrogen [Mass/Vol] 14.0 mg/dL Normal 7.0-18.0 [facility] Comment on above: Performed By: #### T SH, CMP, LIPID #### [facility] [address] [address] [address] Gibson Jin Urea nitrogen/Creatinine [Mass ratio] 19.2 mg/mg Normal [facility] Comment on above: Performed By: #### T SH, CMP, LIPID #### [facility] [address] [address] [address] Gibson Jin TSHon 10-13-2022 TSH 3.011 uIU/mL Normal 0.358-3.740 [facility] Comment on above: Performed By: #### T SH, CMP, LIPID #### [facility] [address] [address] [address] Gibson Jin US SINGLE QUAD RT UPPERon US SINGLE QUAD RT UPPER EXAMINATION: US SINGLE QUAD RT UPPER HISTORY: Elevated liver enzymes level COMPARISON: No relevant comparison available. TECHNIQUE: Transabdominal evaluation of the right upper quadrant. FINDINGS: LIVER: Fatty infiltration. Color Doppler demonstrates patent hepatic veins. PORTAL VEIN: Duplex Doppler demonstrates normal hepatopetal flow pattern with flow velocity averaging 26 cm/s. GALLBLADDER: Small amount of sludge within the gallbladder. No visible gallstones, wall thickening, or pericholecystic free fluid. Negative sonographic Beltre's sign. BILIARY: No abnormal dilation or stones. Common bile duct diameter is within normal limits. PANCREASE: No visible mass, abnormal atrophy, or duct dilation. KIDNEY: No hydronephrosis. No visible mass or stones. Size: 10.8 x 4.6 x 5.5 cm IMPRESSION: 1. Mild fatty infiltration of liver which may contribute to patient's symptoms. Electronically authenticated by: DELL WINN Date: 2022-10-13 13:22 Normal [facility] CBC AUTO DIFFon 10-12-2022 BASO # 0.1 103/ul Normal 0.0-0.1 [facility] Comment on above: Performed By: #### C BC #### [facility] [address] [address] [address] Gibson Jin Basophils/100 WBC (Bld) 1.0 % Normal 0.2-2.0 [facility] Comment on above: Performed By: #### C BC #### [facility] [address] [place] [address] Dr. Gibson Jin EO # 0.2 103/ul Normal 0.0-0.7 [facility] Comment on above: Performed By: #### C BC #### [facility] [address] [place] [address] Dr. Gibson Jin Eosinophils/100 WBC (Bld) 2.2 % Normal 0.9-7.0 [facility] Comment on above: Performed By: #### C BC #### [facility] [address] [place] [address] Dr. Gibson Jin Erythrocyte distribution width (RBC) [Ratio] 12.1 % Normal 11.0-15.0 [facility] Comment on above: Performed By: #### C BC #### [facility] [address] [place] [address] Dr. Gibson Jin Hematocrit (Bld) [Volume fraction] 43.1 % Normal 36.0-48.0 [facility] Comment on above: Performed By: #### C BC #### [facility] [address] [place] [address] Dr. Gibson Jin Hemoglobin (Bld) [Mass/Vol] 15.1 g/dL Normal 12.0-16.0 [facility] Comment on above: Performed By: #### C BC #### [facility] [address] [place] [address] Dr. Gibson Jin IG # 0.06 10e3/ul Critically high 0.00-0.03 [facility] Comment on above: Performed By: #### C BC #### [facility] [address] [place] [address] Dr. Gibson Jin IG % 0.8 % Critically high 0.0-0.5 [facility] Comment on above: Performed By: #### C BC #### [facility] [address] [place] [address] Dr. Gibson Jin LYMPH # 1.5 103/ul Normal 1.2-3.8 [facility] Comment on above: Performed By: #### C BC #### [facility] [address] [place] [address] Dr. Gibson Jin Lymphocytes/100 WBC (Bld) 20.1 % Critically low 20.5-60.0 [facility] Comment on above: Performed By: #### C BC #### [facility] [address] [place] [address] Dr. Gibson Jin MANUAL DIFF REQ NO Normal [facility] Comment on above: Performed By: #### C BC #### [facility] [address] [place] [address] Dr. Gibson Jin MCH (RBC) [Entitic mass] 30.6 pg Normal 26.7-34.0 [facility] Comment on above: Performed By: #### C BC #### [facility] [address] [place] [address] Dr. Gibson Jin MCHC (RBC) [Mass/Vol] 35.0 g/dL Normal 29.9-35.2 [facility] Comment on above: Performed By: #### C BC #### [facility] [address] [place] [address] Dr. Gibson Jin MCV (RBC) [Entitic vol] 87.2 fL Normal 81.0-99.0 [facility] Comment on above: Performed By: #### C BC #### [facility] [address] [place] [address] Dr. Gibson Jin MONO # 0.5 103/ul Normal 0.3-0.8 [facility] Comment on above: Performed By: #### C BC #### [facility] [address] [place] [address] Dr. Gibson Jin Monocytes/100 WBC (Bld) 6.5 % Normal 1.7-12.0 [facility] Comment on above: Performed By: #### C BC #### [facility] [address] [place] [address] Dr. Gibson Jin NEUT # 5.0 103/ul Normal 1.4-6.5 [facility] Comment on above: Performed By: #### C BC #### [facility] [address] [place] [address] Dr. Gibson Jin Neutrophils/100 WBC (Bld) 69.4 % Normal 43.0-75.0 [facility] Comment on above: Performed By: #### C BC #### [facility] [address] [place] [address] Dr. Gibson Jin Platelet mean volume (Bld) [Entitic vol] 10.6 fL Normal 9.5-13.5 [facility] Comment on above: Performed By: #### C BC #### [facility] [address] [place] [address] Dr. Gibson Jin PLT 281 103/ul Normal 150-450 [facility] Comment on above: Performed By: #### C BC #### [facility] [address] [place] [address] Dr. Gibson Jin RBC 4.94 106/ul Normal 4.20-5.40 [facility] Comment on above: Performed By: #### C BC #### [facility] [address] [place] [address] Dr. Gibson Jin WBC 7.3 103/ul Normal 4.0-11.0 [facility] Comment on above: Performed By: #### C BC #### [facility] [address] [place] [address] Dr. Gibson Jin Covid-19 PCR ([facility])on 09-24 SARS-CoV-2 (COVID-19) RNA RIDGE+probe Ql (Unsp spec) Not detected Normal NOT DETECTED [facility] Comment on above: Result Comment: When diagnostic testing is negative, the possibility of a false negative should be considered in the context of a patient's recent exposures and the presence of clinical signs and symptoms consistent with SARS-CoV-2. This test is not yet approved or cleared by the [place] FDA. When there are no FDA-approved or cleared tests available, and other criteria are met, FDA can make tests available under an emergency access mechanism called an Emergency Use Authorization (EUA). The EUA for this test is supported by the Histologist of Health and Human Service's declaration that circumstances exist to justify the emergency use of in vitro diagnostics for the detection and/or diagnosis of the virus that causes COVID-19. This EUA will remain in effect for the duration of the COVID-19 declaration justifying emergency of IVDs, unless it is terminated or revoked by the FDA (after which the test may no longer be used). Performed By: #### P OCGLUC #### [facility] [address] [place] [address] Dr. Gibson Jin D-DIMERon 10-12-2022 D-DIMER 0.34 mg/L FEU Normal <=0.59 [facility] Comment on above: Performed By: #### P OCGLUC #### [facility] [address] [place] [address] Dr. Gibson Jin D-DIMER COMMENTS SEE BELOW Normal [facility] Comment on above: Result Comment: Incr eases in D-Dimer concentration observed with thromboembolic events can be variable due to localization, size, and age of the thrombus. Therefore, a thromboembolic event cannot be diagnosed with certainty on the basis of the reference range. D-Dimers may also be elevated for a variety of disorders including: advanced age, , coronary disease, cancer, liver disease, infection, inflammation, hematoma, DIC, trauma, post-surgery, diabetes, thrombolytic or anticoagulant therapy, stress, and generalized hospitalization. Performed By: #### P OCGLUC #### [facility] [address] [place] [address] Dr. Gibson Jin DRUG SCREEN RAPID (URINE)on 10-12-2022 AMP Negative Normal NEGATIVE [facility] Comment on above: Performed By: #### P OCGLUC #### [facility] [address] [place] [address] Dr. Gibson Jin BAR Negative Normal NEGATIVE [facility] Comment on above: Performed By: #### P OCGLUC #### [facility] [address] [place] [address] Dr. Gibson Jin BUP Negative Normal NEGATIVE [facility] Comment on above: Performed By: #### P OCGLUC #### [facility] [address] [place] [address] Dr. Gibson Jin BZO Negative Normal NEGATIVE [facility] Comment on above: Performed By: #### P OCGLUC #### [facility] [address] [place] [address] Dr. Gibson Jin CANDACE Negative Normal NEGATIVE [facility] Comment on above: Performed By: #### P OCGLUC #### [facility] [address] [place] [address] Dr. Gibson Jni CUT-OFFS SEE BELOW Normal [facility] Comment on above: Result Comment: AMP (Amphetamine): 500ng/mL, BAR (Barbituates): 200 ng/mL, BZO (Benzodiazepines): 150 ng/mL, BUP (Buprenorphine): 10 ng/mL, CANDACE (Cocaine): 150 ng/mL, mAMP (Methamphetamine): 500 ng/mL, MTD (Methadone): 200 ng/mL, OPI (Opiates): 100 ng/mL, OXY (Oxycodone): 100 ng/mL, PCP (Phencyclidine): 25 ng/mL, PPX (Propoxyphene): 300 ng/mL, THC (Cannabinoids): 50 ng/mL, TCA (Trycyclic Antidepressants): 300 ng/mL Performed By: #### P OCGLUC #### [facility] [address] [place] [address] Dr. Gibson Jin DRUG CUT HEADER DRUG CLASS TEST SYSTEM CUT-OFF CONCENTRATIONS ARE FOLLOWS: Normal [facility] Comment on above: Performed By: #### P OCGLUC #### [facility] [address] [place] [address] Dr. Gibson Jin mAMP Negative Normal NEGATIVE [facility] Comment on above: Performed By: #### P OCGLUC #### [facility] [address] [place] [address] Dr. Gibson Jin MTD Negative Normal NEGATIVE [facility] Comment on above: Performed By: #### P OCGLUC #### [facility] [address] [address] [address] Gibson Jin OPI Positive Abnormal NEGATIVE [facility] Comment on above: Performed By: #### P OCGLUC #### [facility] [address] [address] [address] Gibson Jin OXY Negative Normal NEGATIVE [facility] Comment on above: Performed By: #### P OCGLUC #### [facility] [address] [address] [address] Gibson Jin PCP Negative Normal NEGATIVE [facility] Comment on above: Performed By: #### P OCGLUC #### [facility] [address] [address] [address] Gibson Jin PPX Negative Normal NEGATIVE [facility] Comment on above: Performed By: #### P OCGLUC #### [facility] [address] [address] [address] Gibson Jin TCA Negative Normal NEGATIVE [facility] Comment on above: Performed By: #### P OCGLUC #### [facility] [address] [address] [address] Gibson Jin THC Negative Normal NEGATIVE [facility] Comment on above: Performed By: #### P OCGLUC #### [facility] [address] [address] [address] Gibson Jin POINT OF CARE GLUCOSEon 09-24 Glucose [Mass/Vol] 220 mg/dL Critically high 74-106 [facility] Comment on above: Performed By: #### P OCGLUC #### [facility] [address] [address] [address] Gibson Jin Glucose [Mass/Vol] 298 mg/dL Critically high 74-106 [facility] Comment on above: Performed By: #### P OCGLUC #### [facility] [address] [address] [address] Gibson Jin PROF 14(COMP METB)on 023 Albumin [Mass/Vol] 3.7 g/dL Normal 3.4-5.0 [facility] Comment on above: Performed By: #### C MP, HSTROPN #### [facility] [address] [address] [address] Gibson Jin Albumin/Globulin [Mass ratio] 1.0 {ratio} Normal [facility] Comment on above: Performed By: #### C MP, HSTROPN #### [facility] [address] [address] [address] Gibson Jin ALP [Catalytic activity/Vol] 175 U/L Critically high 46-116 [facility] Comment on above: Performed By: #### C MP, HSTROPN #### [facility] [address] [place] [address] Dr. Gibson Jin ALT [Catalytic activity/Vol] 167 U/L Critically high 14-59 [facility] Comment on above: Performed By: #### C MP, HSTROPN #### [facility] [address] [place] [address] Dr. Gibson Jin Anion gap [Moles/Vol] 10.6 mmol/L Normal [facility] Comment on above: Performed By: #### C MP, HSTROPN #### [facility] [address] [place] [address] Dr. Gibson Jin AST [Catalytic activity/Vol] 49 U/L Critically high 15-37 [facility] Comment on above: Performed By: #### C MP, HSTROPN #### [facility] [address] [place] [address] Dr. Gibson Jin Bilirubin [Mass/Vol] 0.4 mg/dL Normal 0.2-1.0 [facility] Comment on above: Performed By: #### C MP, HSTROPN #### [facility] [address] [place] [address] Dr. Gibson Jin Calcium [Mass/Vol] 9.1 mg/dL Normal 8.5-10.1 [facility] Comment on above: Performed By: #### C MP, HSTROPN #### [facility] [address] [place] [address] Dr. Gibson Jin Chloride [Moles/Vol] 102 mmol/L Normal 98-107 [facility] Comment on above: Performed By: #### C KARLIE, HSTROPN #### [facility] [address] [address] [address] Gibson Jin CO2 [Moles/Vol] 26.8 mmol/L Normal 21.0-32.[address] [facility] Comment on above: Performed By: #### C KARLIE, HSTROPN #### [facility] [address] [address] [address] Gibson Jin Creatinine [Mass/Vol] 0.90 mg/dL Normal 0.55-1.02 [facility] Comment on above: Performed By: #### C KARLIE, HSTROPN #### [facility] [address] [place] [address] Dr. Gibson Jin EGFR-AF VENEZUELAN >60 Normal >=[address] [facility] Comment on above: Performed By: #### C KARLIE, HSTROPN #### [facility] [address] [place] [address] Dr. Gibson Jin EGFR-NON AF VENEZUELAN >60 Normal >=60 [facility] Comment on above: Performed By: #### C KARLIE, HSTROPN #### [facility] [address] [place] [address] Dr. Gibson Jin Globulin (S) [Mass/Vol] 3.6 g/dL Normal [facility] Comment on above: Performed By: #### C KARLIE, HSTROPN #### [facility] [address] [address] [address] Gibson Jin Glucose [Mass/Vol] 288 mg/dL Critically high 74-106 [facility] Comment on above: Performed By: #### C KARLIE, HSTROPN #### [facility] [address] [address] [address] Gibson Jin Potassium [Moles/Vol] 3.4 mmol/L Critically low 3.5-5.1 [facility] Comment on above: Performed By: #### C KARLIE, HSTROPN #### [facility] [address] [address] [address] Gibson Jin Protein [Mass/Vol] 7.3 g/dL Normal 6.4-8.2 [facility] Comment on above: Performed By: #### C MP, HSTROPN #### [facility] [address] [address] [address] Gibson Jin Sodium [Moles/Vol] 136 mmol/L Normal 136-145 [facility] Comment on above: Performed By: #### C MP, HSTROPN #### [facility] [address] [place] [address] Dr. Gibson Jin Urea nitrogen [Mass/Vol] 13.0 mg/dL Normal 7.0-18.0 [facility] Comment on above: Performed By: #### C MP, HSTROPN #### [facility] [address] [place] [address] Dr. Gibson Jin Urea nitrogen/Creatinine [Mass ratio] 14.4 mg/mg Normal [facility] Comment on above: Performed By: #### C MP, HSTROPN #### [facility] [address] [place] [address] Dr. Gibson Jin TROPONIN, HIGH SENSITIVITYon 10-12-2022 HSTROP <4.0 Normal 4.0-51.3 [facility] Comment on above: Result Comment: CUT- OFF POINTS HAVE BEEN ESTABLISHED BASED ON THE FOURTH UNIVERSAL DEFINITIONS OF MYOCARDIAL INFARCTION. THE UPPER REFERENCE LIMIT (URL) OF TROPONIN, DEFINED THE 99TH PERCENTILE OF cTnI DISTRIBUTION IN A REFERENCE POPULATION, HAS BEEN CONFIRMED THE DECISION THRESHOLD FOR VT DIAGNOSIS. Performed By: #### P OCGLUC #### [facility] [address] [place] [address] Dr. Gibson Jin HSTROP <4.0 Normal 4.0-51.3 [facility] Comment on above: Result Comment: CUT- OFF POINTS HAVE BEEN ESTABLISHED BASED ON THE FOURTH UNIVERSAL DEFINITIONS OF MYOCARDIAL INFARCTION. THE UPPER REFERENCE LIMIT (URL) OF TROPONIN, DEFINED THE 99TH PERCENTILE OF cTnI DISTRIBUTION IN A REFERENCE POPULATION, HAS BEEN CONFIRMED THE DECISION THRESHOLD FOR VT DIAGNOSIS. Performed By: #### C MP, HSTROPN #### [facility] [address] [address] [address] Gibson Jin XR CHEST 1 Von 10-12-2022 XR CHEST 1 V EXAMINATION: XR CHEST 1 V HISTORY: CHEST PAIN, UNSPECIFIED COMPARISON: XR chest 01/13/2021 FINDINGS: LUNGS: No significant pulmonary parenchymal abnormalities. VASCULATURE: No increased pulmonary vasculature. PLEURA: No pneumothorax, effusion, or pleural thickening. CARDIAC: No cardiomegaly or cardiac silhouette abnormality. MEDIASTINUM: No visible mass or adenopathy. BONES: No fracture or visible bone lesion. OTHER: Negative. IMPRESSION: 1. No acute cardiopulmonary process. Stable chest. Electronically authenticated by: DELL WINN Date: 2022-10-12 10:36 Normal [facility] COVID + FLU Quick Testingon 09-20-2022 SARS-CoV-2 (COVID-19) RNA RIDGE+probe Ql (Unsp spec) Negative [employer] Other COVID + FLU Quick Testing Negative [employer] Other Quick Strepon 09-20-2022 S. pyogenes Org specific cx Ql (Throat) Negative [facility] Other Quick Strep [employer] Other COVID/FLU/RSV RT-PCRon 06-30 SARS-CoV-2 (COVID-19) RNA RIDGE+probe Ql (Unsp spec) Negative [facility] Other COVID/FLU/RSV RT-PCR Negative [employer] Other Registrationon 02-04-2022 Registration [id number]# 1.00CD:127 Normal [facility] 01-09-2022 Consent [id number] #1.00CD:127 Normal [facility] COVID/FLU RT-PCRon SARS-CoV-2 (COVID-19) RNA RIDGE+probe Ql (Unsp spec) Positive [employer] Other COVID/FLU RT-PCR Negative [facility] [employer] Other Coding Summary.on 08-04-2021 Coding Summary. CD:[id number] Gh0bWw+PGhlYWQ+PE1FV DXqV13ueGInzW3CK4pJZ L9ZMIKBHQFIMI9XMA2es NW9YRldZ7MidrUi GhjwvCSmQA33WMd9GKR3 kJeaTRouzJ2tnQUvM7e4 NxXeWH03kC81KHfxZLGh MqN9TeQhjastyKQc X5kdTyVwdIFmYnz+PHRh YmxlIHdpZHRoPScxMDAl BqPfxAxxCB2aEf5zRNJq LWNvbGxhcHNlOiBj f8mwQNUoOClrLO1coFlz I8XqqNH8FFUtd6m5Va84 dHI+CSFlEYB4kWmzLOxq n197DoOxm2axJMK6 tFAiWScyDWM3C89wb3B6 HROdSWZyKNP3rUR3uK8h sUprvzsaB3AtxNQrOnX0 VWV0fNRmcJ6mgYcl lptrqG0sUau+M00HQM0K LNOHJL0VZqy1W2WwNpfr dHI+TN35IJChFW10kPNg hFQvk8hrsYu8EcFi YKKxIQX9dUisNEcdk8Jl EXHzY94mcFMpx5H0LLNc hFhdtBBmGjCodHC1cB3c SSandahgw2mplvrb Ygore1atxn16uK69S50k AXqtQXBeCGZ3EOCwJQEh kXlmca6pwS4dNf9+IDxj r4nxf3dqlHu0NaXn MQComaFhrMevFTV3c8Ip Yf01J1NefCjnb5CsKjt6 fl49dFLgr3M1qGS4ROsy IKNdnY6wMFfqQdI0 VNDpCgQrtJ78qWPhFKth Pf3cwObgcUorUA3oLCLy sdrjLDIudK7iYCUcuEOy aEqfLK7jACMavcji e332UwMvKPZ2PYBqvYAh B7TvcN9wCpCcWODsNWPh I1LhcJNlJKmqD068EVvs CqM2VBKspyZeA1Dq YAKlwVquZpZ8q1S5Qv2U s9YmolwcVQZ8DPqfEHHe FlTzXvFzQbE0X6GbAkb1 JZUpmNqcCQ0kQ0Sk FUWdvylmmqcwtMS1SGGq SXCglJ42tKIuHHwiCu1x q2B3f266TOYqBMUslC57 Wj3zvXwwNWOdbSAK kO8smejyr1swnqubAwJs QLJxNWq5ONe7PVGtqIxq QlRaWWJ7JcX0YIV3qWIg zW8aeKcvbkmkdQ0i Oyc+A91peH7nOVD2IKR1 eluhGHCbgzEoIP54UX87 N0TzJtkejFEdwPY+PGRp ooCtnYfwHO7aSiPh e3yew0WhNIvmN8AoUSHi DGraQxb1HOYrIZC9cRG9 wE4aYFTwTYgxu9N1mZX4 S6DvseLvxb1jf4dg RRYcTHjsJ10poFOdi3H1 BYSqmLL8NXAmpYjiYaHs eH70Oub+ILKnbVrky4Wj Hvdim9whs6oldKi7 IjMwJSIgdmFsaWduPSJ0 a4DoQo84Z46lJVueLZQt KQVqTOMuQMAvoJcyks0q hT8wHi8+PGNvbCB3 hRD3zL1fIPAsTeG5MZop T203MwNlrCXxJnzvu3az l6chnDq4FfHePFPboiAl iCvmVIR6e4XfIs60 O02uCAkuUUHwRVPhSLUp ZANtfEmgzb3mdJ2aYo2+ DQ4dh9fcuo43zZ32wXN+ PVYgRFP9uJfhQJxt TVPqmE3qMMlyMtO5XVHb IwNcsX86vWUgROaoGb3y mNoqdOkmNL1lCKDxrlkg r408JnAxr4sdFJOh bFKjSOjeCJS4U04wm3J2 SCTnBRUtCZR8qNZ8yV4l bGlnbjogbGVmdDsgdmVy fOapCWjqIAezL311 IHRvcDsnPlBhdGllbnQg FwNjHJv7U5YjNyk6RUCm tOqaPL5bvJJnMEhfJb0w nMwkkTesME3uTWSw ldkrb494HaMiw5geXTOe iDScUHpcHTO8K81nw6E6 CPQtWSCsTPP2iFA5bS0j bGlnbjogbGVmdDsg ozZdsVzsPZqlDRqgF601 IHRvcDsnPkJpcnRoIERh uJY5HJ40KY62yPUex5Y4 qWL8S7EfTZVzlngl jszgkZW2ESGiEZRyrK38 Zt9knVzsWa1jBPHoSKX3 USQubYXrU0KmoV4nVqIj GQZxDULtQ5KhoVZm SAebM053ERmgVtK8JVKv opIsE1QsWQPelUidReP2 u5P5Tr3BQ8U1UM37HF95 mCZio8J5uZC9V8De RVHedptgonempEI8JVWy ZSLmcW35Ct0noJymOh9x JBXtUYZ4IWNfaDSwZ5Fo fI2sQyNtKCKsTDOm I5LoqAJjBJldY099TEbq CsS1ZQHcurJiL2OaYLAs qVfaBhV8u1C5Mp7DMSr8 BK71SD18eOUgj3O8 yDG3E2VhMIOmukmqfkur fWJ1LIJiJUHlnV46Oi1j yOsvIa2nAWRgLCS4FVUj hQMhX3IlzD0rJmUu MGGzZLKlY8OviZBxLHhx R447KEzcAuA2UETynlSw L1WvAHDikMsrIwA7m9A8 Gt5IZOAfCK88IPT8 oPY9AD80YH07Y5JxHksy dGFibGU+PHRhYmxlIHdp ZHRoPScxMDAlJyBzdHls JZ9mBe1dXTYhCJKf xXzmwPOyLaTnu6oxWXDw TXctZD3svNqyG6JlaNA5 OGPdi3z4On73U71wN4Wu dXA+GRFmkAB1yLV9 fC9yWnTwInB8CLhqX428 WmDrvGQwWpepc4aem2lt tXj6TbH8MTMcrkAvkHiq EHM7u8BpHo35A73r IHdpZHRoPSIxNSUiIHZh sZizvl8koC3fHs1+PGNv cFV5bBF3qH4iWrErOzH1 YQgzG684KnUksQIz Krsto0gel7epwDc8XiMk LNNrjvUgpGrcTMP3f6Bc Ve11S4DsxRfgb8LiRer2 wh44jNDgr1H2hRS4 R9RgLQCilsgfbBVucPxm BA5fZSZkiccjLLCqxO7v UYRwX6r1CfVmHgV4OYnm J3BiasH8BPTsrYWa SCrnJCA9L62wk9I2JOEn QOChMQT7gEP9wM4mfBpl bjogbGVmdDsgdmVydGlj IGmdTIypJ418PVSn bIbmIICnzS6fHZDadQMq rCktAX8yZGTzxrwtIcgS UkNJQSwgTUFSSUEgRDwv dGQ+RQYkPED8mSkh BTfsKLPdxM4dYPFzQ2v5 ZwNmHjK2QMxtM3NeOGIk eiaeGq64dM7pUfFyVpN2 EPzkE5NxchJ7IQFk sUPrZUgcSTC8B75ao3K0 VAUjZNQuKGS8xKD3qE4l bGlnbjogbGVmdDsgdmVy yEbkBSurCYdyC627 HMJftWlqJgCpFiP6FtZ1 XgE5Q3EcCxy9TZPuyAew BI4ryABgOFycBi7yhSlz nKirTX1fBVOnmlll LQYffN4gNUYriLLxrUmb UU7dNUHubsyda982DlDd IRB0AKHcgQVfI1FkfP0b TkLaXRGyGZExR9Fn nBEkGVbxQ301RYtrLdD5 DKNoqwHtD8ZeSIXgjUdh CmM8s0U4Hv86RFGJHKXn czwvdGQ+PHRkIHN0 xKukJWptWFOhsP1hBWFq E6n9QkWcEfQ4LSpdR6Gi HNSvsitvCo57sI8uNeVv YzI1XOqlU9PjhlE6 NBTxlORsNIbiCNJ8D57x t0N2ZNJbRQRkPTA5qTQ2 yX8hjUhagjyzwMLwhSts dmVydGljYWwtYWxp S895FHXndYdtNzWpbJVa ZTwvdGQ+EGLiRJL4zXlc AUolJIDdfY2sCOYaH8k9 ItDiMrV5SWpfH2Rb EMYaucajIy12uN7sBoSe IqV5CNbkR0McxeZ3MZDf dWSeUDzpOVQ2Z91ui8T5 TREfLUHcXJX1mQQ1 tH8bxWgqxodusNLqvVpm zgOhzLmsQPcjGQzpX977 MLDveExfZnSqV2Jguxks ZzwvdGQ+UA10yz86 Z5RsVqwpEch4IIPkFTL5 tBM7gY9zSOZpMAnhg6W5 rAJ0J0KwimKgvv9yq7ke BQQbUVkuJ37dtEXc i8E0UWXhiFE1DIIbgSvv QdAkmW39Bmz+PGNvbGdy b0LlHwcft6djh6aukDw8 IjMwJSIgdmFsaWdu CKH3j8CaNt25F48wVVzf ZHRoPSIzMCUiIHZhbGln jd2qcZ8lBe9+PGNvbCB3 xWB4bB7rEfHlHoX3 PUiyC669OkGitZDxEgas x6ctg2xgxMh2QpDfXSJg gjEwbQblFXX3o1NpLu20 Q2XfeTaks7QmVqv1 mk94rRNxa2O2vTH5R2Vt EYBstsauoPUbnOkwHS2g LFClgjdsRMSzxB5sZDSz A3d6GsByCoP2CInw N1ScrqD9ATCskNSvHEBp uEQQvG8yhainw4tlmoci AjGyNHPrNGd0LRt9CAGn sBxeSxEqHCI5DuV0 BGU5fLAewE9anOqodqtg pJ5nZcy+LSd2c6ytqYZj DO2utAR6FY54HM63vJPo y4B4dZH3J5JtOGAr iyycbqqjdCZ1OWSeHOYj jA82Zf8bzUzeOo9tUBNi NRX8CNRkiKMiD8LnzU8d VcAxRGHiDJJfO3Kz wXAeRWgcW378ZPmfZkQ5 XSNeejOeI1NpOAXqhLbg RkD1j5Y7Pt9KSA36XZ85 NS89rNXzq6C6vZA7 F9PfVQWtxihatlnyzDA2 OFJrGUCzhZ85Hy6ogHms Th7vFSDmHHX1FBNihCIe Y0WrzC9nGnNaVQYa XVRhT3XzcGChSSifK696 GXmwZpG8HIUqppNnX5Kz KUBjeZuiEfS5k1K2Pj5W Gd64ZG31OB05bQPo g1I4kHX4Z3HjXHPfipvi kileaSK8BXViOBDzfB69 Kj8gpLvcXa5kRHNaMBU2 UHQsuWNcR1PygZ3s HqKiHQVkIDVtY9DalRDd FDtpU040ACdgSwP4SRNa bmVoW5XtGKOumNhgLeD8 g1N5Ot5TQGvogvm5 H8SrSldhrFH+SA95DMUj KJ79tCOuyABjk7qsdSp1 HzGiYFNqTKT4wRvvJBos f8AkQAEvZ82dcGFy c2U6 (more content not included)... Normal [facility] Consent for Treatmenton Consent for Treatment [id number] 7#1.00CD:127 Normal [facility] COVID-19 ([facility])on 08-01-2021 SARS-CoV-2 (COVID-19) RNA RIDGE+probe Ql (Resp) Not detected Normal Not Detected [facility] Comment on above: Result Comment: This test result should be correlated with clinical presentations and medical history by a healthcare provider to determine its clinical significance. This assay was performed by a reverse transcriptase real-time polymerase chain reaction (rt PCR) method on the [employer] system. This test has been authorized only for the detection of nucleic acid from SARS-CoV-2, not for any other viruses or pathogens. This test has not been FDA cleared or approved. This test has been authorized by FDA under an Emergency Use Authorization (EUA). This test is only authorized for the duration of time the declaration on that circumstances exist justifying the authorization emergency use of in vitro diagnostic tests for detection and/or diagnosis of COVID-19 infection under section 564 (b) (1) of the Act, 21 U.S.C. 360 bbb-3 (b) (1), unless authorization is terminated or revoked sooner. Performed By: #### 2 [id number] #### [address] [address] SARS-CoV-2 (COVID-19) RNA RIDGE+probe Ql (Unsp spec) Pass Normal Pass [facility] Comment on above: Performed By: #### 2 [id number] #### [facility] [address] [place] [address] Specimen source Nom (Unsp spec) Nasal Normal [facility] Comment on above: Performed By: #### 2 [id number] #### [facility] [address] [place] [address] COVID-19 ([facility] [place] [place])on 07-30-2021 ADMITTED TO INTENSIVE CARE UNIT FOR CONDITION OF INTEREST:FIND:PT: Unknown Normal [facility] Comment on above: Performed By: #### 2 [id number] #### [facility] [address] [place] [address] EMPLOYED IN A HEALTHCARE SETTING:FIND:PT: Unknown Normal [facility] Comment on above: Performed By: #### 2 [id number] #### [facility] [address] [place] [address] FIRST TEST FOR CONDITION OF INTEREST:FIND:PT: Unknown Normal [facility] Comment on above: Performed By: #### 2 [id number] #### [facility] [address] [place] [address] HAS SYMPTOMS RELATED TO CONDITION OF INTEREST:FIND:PT: Unknown Normal [facility] Comment on above: Performed By: #### 2 [id number] #### [facility] [address] [place] [address] HOSPITALIZED FOR CONDITION OF INTEREST:FIND:PT: Unknown Normal [facility] Comment on above: Performed By: #### 2 [id number] #### [facility] [address] [place], [place] [id number] STATUS:FIND:PT: Unknown Normal [facility] Comment on above: Performed By: #### 2 [id number] #### [facility] [address] [place] [address] RESIDES IN A CONGREGATE CARE SETTING:FIND:PT: Unknown Normal [facility] Comment on above: Performed By: #### 2 [id number] #### [facility] [address] [id number] CTA CHEST W CONTRASTon 01-14 CTA CHEST W CONTRAST EXAMINATION: CTA CHEST W CONTRAST HISTORY: Reason for exam:->This pain, elevated D-dimer, radiation of the pain to her right upper back report shortness of breath chest tightness. COMPARISON: Chest x-ray 01/14/2020 TECHNIQUE: CT angiography of the pulmonary arteries following the administration of 100 mL Isovue-370 intravenous contrast. Coronal and sagittal MIP (maximum intensity projection) images were performed. Dose reduction techniques were achieved by using automated exposure control and/or adjustment of mA and/or kV according to patient size and/or use of iterative reconstruction technique. FINDINGS: No evidence for acute large occlusive pulmonary embolism. No evidence for thoracic aortic aneurysm or dissection flap. Thoracic aortic arch ductus bump. No large pericardial effusions. No lung consolidation, large effusions, pneumothorax, or suspicious groundglass lung infiltrates. Visualized portions upper abdomen demonstrates hepatic steatosis. Apparent mild gastroesophageal wall thickening. Correlate clinically for sequela of reflux disease or distal esophagitis/wall lesion. No acute bony abnormality. IMPRESSION: No evidence for acute large occlusive pulmonary embolism. No evidence for thoracic aortic aneurysm or dissection flap. No suspicious lung infiltrates or consolidation. Hepatic steatosis. Mild gastroesophageal wall thickening, correlate clinically. Interpreted by: Kwabena Peña MD Signed by: Kwabena Peña MD 01/13/21 Final result Normal [facility] CBC Auto DifferentialOrdered By: Tita Palma on 01-13-2021 Absolute [facility] # 0.10 [facility] Work Phone: Absolute Immature Granulocyte NOT REPORTED [facility] [employer] Work Phone: Absolute Lymph # 0.80 Low [facility] [employer] Work Phone: Absolute [place] # 0.50 [facility] Work Phone: Basophils (Bld) [#/Vol] 0.00 10*3/uL [facility] Work Phone: Basophils/100 WBC (Bld) 0 % 0 - 2 % [facility] Work Phone: Differential Type YES [facility] [employer] Work Phone: Eosinophils/100 WBC (Bld) 1 % 0 - 5 % [employer] Phone: Hematocrit (Bld) [Volume fraction] 42.0 % 36 - 46 % [employer] Phone: Hemoglobin.gastrointes tinal spec 1 Ql (Stl) 14.3 g/dL 12.0 - 16.0 g/dL [employer] Phone: Immature Granulocytes NOT REPORTED 0 % [employer] Phone: Interpretation and review of laboratory results Abnormal [employer] Phone: Lymphocytes/100 WBC (Bld) 11 % Low 15 - 40 % [employer] Phone: MCH (RBC) [Entitic mass] 29.5 pg 26 - 34 pg [employer] Phone: MCHC (RBC) [Mass/Vol] 34.1 g/dL 31 - 37 g/dL [facility] [employer] Phone: MCV (RBC) [Entitic vol] 86.5 fL 80 - 100 fL [employer] Phone: Monocytes/100 WBC (Bld) 7 % 4 - 8 % [employer] Phone: NRBC Automated NOT REPORTED per 100 WBC [employer] [employer] [facility] Work Phone: Platelet distribution width (Bld) [Ratio] 13.3 % 12.1 - 15.2 % [employer] Phone: Platelet Estimate NOT REPORTED [employer] Phone: Platelet mean volume (Bld) [Entitic vol] NOT REPORTED 6.0 - 12.0 fL [employer] Phone: Platelets (Bld) [#/Vol] 340 10*3/uL [employer] Phone: RBC (Bld) [#/Vol] 4.86 10*6/uL 4.0 - 5.2 m/uL [employer] Phone: RBC (Bld) [#/Vol] NOT REPORTED [facility] Phone: Segmented neutrophils/100 WBC (Bld) 81 % High 47 - 75 % [employer] Work Phone: Segs Absolute 6.30 [facility] Work Phone: WBC (Bld) [#/Vol] 7.8 10*3/uL [facility] Work Phone: WBC (Bld) [#/Vol] NOT REPORTED [employer] Work Phone: [employer] Work Phone: CBC with Diffon 01-13-2021 Abs. Basophil 0.00 k/uL Normal 0.0-0.2 [facility] Comment on above: Performed By: #### D DRE NARANJO, REJEC #### [facility] [address], [place] [id number] Information Assurance Manager: Flash Jaramillo MD Abs.Neutrophil (Seg) 6.30 k/uL Normal 2.5-7.0 [facility] Comment on above: Performed By: #### DRE SIU, REJEC #### [facility] [address], [place] [id number] Information Assurance Manager: Flash Jaramillo MD Auto Diff Performed YES Normal [facility] Comment on above: Performed By: #### DRE SIU, REJEC #### [facility] [address], [place] [id number] Information Assurance Manager: Flash Jaramillo MD Basophils/100 WBC (Bld) 0 % Normal 0-2 [facility] Comment on above: Performed By: #### DRE SIU, REJEC #### [facility] [address], [place] [id number] Information Assurance Manager: Flash Jaramillo MD Eosinophils (Bld) [#/Vol] 0.10 10*3/uL Normal 0.0-0.4 [facility] Comment on above: Performed By: #### DRE SIU, REJEC #### [facility] [address] [place] [address] Information Assurance Manager: Flash Jaramillo MD Eosinophils/100 WBC (Bld) 1 % Normal 0-5 [facility] Comment on above: Performed By: #### DRE SIU, REJEC #### [facility] [address] [place] [address] Information Assurance Manager: Flash Jaramillo MD Erythrocyte distribution width (RBC) [Ratio] 13.3 % Normal 12.1-15.2 [facility] Comment on above: Performed By: #### DRE SIU, REJEC #### [facility] [address] [place] [address] Information Assurance Manager: Flash Jaramillo MD Hematocrit (Bld) [Volume fraction] 42.0 % Normal 36-46 [facility] Comment on above: Performed By: #### DRE SIU, REJEC #### [facility] [address] [id number] Information Assurance Manager: Flash Jaramillo MD Hemoglobin (Bld) [Mass/Vol] 14.3 g/dL Normal 12.0-16.0 [facility] Comment on above: Performed By: #### DRE SIU, REJEC #### [facility] [address] [place] [address] Information Assurance Manager: Flash Jaramillo MD Lymphocytes (Bld) [#/Vol] 0.80 10*3/uL Low 1.0-4.8 [facility] Comment on above: Performed By: #### DRE SIU, REJEC #### [facility] [address] [place] [address] Information Assurance Manager: Flash Jaramillo MD Lymphocytes/100 WBC (Bld) 11 % Low 15-40 [facility] Comment on above: Performed By: #### D DRE NARANJO, REJEC #### [facility] [address] [place] [address] Information Assurance Manager: Flash Jaramillo MD MCH (RBC) [Entitic mass] 29.5 pg Normal 26-34 [facility] Comment on above: Performed By: #### D DRE NARANJO, REJEC #### [facility] [address], [place] [id number] Information Assurance Manager: Flash Jaramillo MD MCHC (RBC) [Mass/Vol] 34.1 g/dL Normal 31-37 [facility] Comment on above: Performed By: #### DRE SIU, REJEC #### [facility] [address] [place] [address] Information Assurance Manager: Flash Jaramillo MD MCV (RBC) [Entitic vol] 86.5 fL Normal 80-100 [facility] Comment on above: Performed By: #### DRE SIU, REJEC #### [facility] [address] [place] [address] Information Assurance Manager: Flash Jaramillo MD Monocytes (Bld) [#/Vol] 0.50 10*3/uL Normal 0.0-1.0 [facility] Comment on above: Performed By: #### DRE SIU, REJEC #### [facility] [address] [place] [address] Information Assurance Manager: Flash Jaramillo MD Monocytes/100 WBC (Bld) 7 % Normal 4-8 [facility] Comment on above: Performed By: #### DRE SIU, REJEC #### [facility] [address] [place] [address] Information Assurance Manager: Flash Jaramillo MD Neutrophil (Seg) 81 % High 47-75 [facility] Comment on above: Performed By: #### D DRE NARANJO, REJEC #### [facility] [address] [place] [address] Information Assurance Manager: Flash Jaramillo MD Platelets (Bld) [#/Vol] 340 10*3/uL Normal 140-450 [facility] Comment on above: Performed By: #### D DRE NARANJO, REJEC #### [facility] [address] [id number] Information Assurance Manager: Flash Jaramillo MD RBC (Bld) [#/Vol] 4.86 10*6/uL Normal 4.0-5.2 [facility] Comment on above: Performed By: #### D DRE NARANJO, REJEC #### [facility] [address] [place] [address] Information Assurance Manager: Flash Jaramillo MD WBC (Bld) [#/Vol] 7.8 10*3/uL Normal 3.5-11.0 [facility] Comment on above: Performed By: #### D DRE NARANJO, REJEC #### [facility] [address] [id number] Information Assurance Manager: Flash Jaramillo MD Abs.Imm.Granulocyte NOT REPORTED Normal 0.00-0.30 [facility] Comment on above: Performed By: #### D DRE NARANJO, REJEC #### [facility] [address] [id number] Information Assurance Manager: Flash Jaramillo MD Immature Granulocyte NOT REPORTED Normal 0 [facility] Comment on above: Performed By: #### D DRE NARANJO, REJEC #### [facility] [address] [id number] Information Assurance Manager: Flash Jaramillo MD MPV NOT REPORTED Normal 6.0-12.0 [facility] Comment on above: Performed By: #### D DRE NARANJO, REJEC #### [facility] [address] [place] [address] Information Assurance Manager: Flash Jaramillo MD NRBC Automated NOT REPORTED Normal [facility] Comment on above: Performed By: #### D DRE NARANJO, REJEC #### [facility] [address] [place] [address] Information Assurance Manager: Flash Jaramillo MD Platelet Estimate NOT REPORTED Normal [facility] Comment on above: Performed By: #### D DRE NARANJO, REJEC #### [facility] [address] [place] [address] Information Assurance Manager: Flash Jaramillo MD RBC morphology finding Nom (Bld) NOT REPORTED Normal [facility] Comment on above: Performed By: #### D DRE NARANJO, REJEC #### [facility] [address] [place] [address] Information Assurance Manager: Flash Jaramillo MD WBC Morphology NOT REPORTED Normal [facility] Comment on above: Performed By: #### D DRE NARANJO, REJEC #### [facility] [address] [place] [address] Information Assurance Manager: Flash Jaramillo MD CTA CHEST W CONTRASTOrdered By: Veselin Louie on 01-13-2021 No evidence for acute large occlusive pulmonary embolism. No evidence for thoracic aortic aneurysm or dissection flap. No suspicious lung infiltrates or consolidation. Hepatic steatosis. Mild gastroesophageal wall thickening, correlate clinically. [facility] Work Phone: EXAMINATION: CTA CHEST W CONTRAST HISTORY: Reason for exam:->This pain, elevated D-dimer, radiation of the pain to her right upper back report shortness of breath chest tightness. COMPARISON: Chest x-ray 01/14/2020 TECHNIQUE: CT angiography of the pulmonary arteries following the administration of 100 mL Isovue-370 intravenous contrast. Coronal and sagittal MIP (maximum intensity projection) images were performed. Dose reduction techniques were achieved by using automated exposure control and/or adjustment of mA and/or kV according to patient size and/or use of iterative reconstruction technique. FINDINGS: No evidence for acute large occlusive pulmonary embolism. No evidence for thoracic aortic aneurysm or dissection flap. Thoracic aortic arch ductus bump. No large pericardial effusions. No lung consolidation, large effusions, pneumothorax, or suspicious groundglass lung infiltrates. Visualized portions upper abdomen demonstrates hepatic steatosis. Apparent mild gastroesophageal wall thickening. Correlate clinically for sequela of reflux disease or distal esophagitis/wall lesion. No acute bony abnormality. [employer] Phone: More[place], M[employer] Incoming Radiant Results From [employer] - 01/13/2021 10:06 PM EDT EXAMINATION: CTA CHEST W CONTRAST HISTORY: Reason for exam:->This pain, elevated D-dimer, radiation of the pain to her right upper back report shortness of breath chest tightness. COMPARISON: Chest x-ray 01/14/2020 TECHNIQUE: CT angiography of the pulmonary arteries following the administration of 100 mL Isovue-370 intravenous contrast. Coronal and sagittal MIP (maximum intensity projection) images were performed. Dose reduction techniques were achieved by using automated exposure control and/or adjustment of mA and/or kV according to patient size and/or use of iterative reconstruction technique. FINDINGS: No evidence for acute large occlusive pulmonary embolism. No evidence for thoracic aortic aneurysm or dissection flap. Thoracic aortic arch ductus bump. No large pericardial effusions. No lung consolidation, large effusions, pneumothorax, or suspicious groundglass lung infiltrates. Visualized portions upper abdomen demonstrates hepatic steatosis. Apparent mild gastroesophageal wall thickening. Correlate clinically for sequela of reflux disease or distal esophagitis/wall lesion. No acute bony abnormality. IMPRESSION: No evidence for acute large occlusive pulmonary embolism. No evidence for thoracic aortic aneurysm or dissection flap. No suspicious lung infiltrates or consolidation. Hepatic steatosis. Mild gastroesophageal wall thickening, correlate clinically. [employer] Phone: [employer]ix Phone: Comp Metabolic Profon 2020 (cont.) Normal [facility] Comment on above: Result Comment: Aver age GFR for 50-59 years old: 93 mL/min/1.73sq m Chronic Kidney Disease: <60 mL/min/1.73sq m Kidney failure: <15 mL/min/1.73sq m eGFR calculated using average adult body mass. Additional eGFR calculator available at: http://www.[employer].iWOPI/multiple_crcl_2011.htm Performed By: #### C P, TROPI #### [facility] [address], [place] [id number] Information Assurance Manager: Flash Jaramillo MD Albumin [Mass/Vol] 4.3 g/dL Normal 3.5-5.2 [facility] Comment on above: Performed By: #### C P, TROPI #### [facility] [address], [place] [id number] Information Assurance Manager: Flash Jaramillo MD Alkaline Phos 165 U/L High 35-104 [facility] Comment on above: Performed By: #### C P, TROPI #### [facility] [address], [place] [id number] Information Assurance Manager: Flash Jaramillo MD ALT [Catalytic activity/Vol] 24 U/L Normal 5-33 [facility] Comment on above: Performed By: #### C P, TROPI #### [facility] [address], [place] [id number] Information Assurance Manager: Flash Jaramillo MD Anion gap [Moles/Vol] 10 mmol/L Normal 9-17 [facility] Comment on above: Performed By: #### C P, TROPI #### [facility] [address], [place] [id number] Information Assurance Manager: Flash Jaramillo MD AST [Catalytic activity/Vol] 14 U/L Normal <32 [facility] Comment on above: Performed By: #### C P, TROPI #### [facility] [address], [place] [id number] Information Assurance Manager: Flash Jaramillo MD Bilirubin [Mass/Vol] 0.24 mg/dL Low 0.30-1.20 [facility] Comment on above: Performed By: #### C P, TROPI #### [facility] [address], [place] [id number] Information Assurance Manager: Flash Jaramillo MD BUN/CRE Ratio 16 Normal 9-20 [facility] Comment on above: Performed By: #### C P, TROPI #### [facility] [address] [place] [address] Information Assurance Manager: Flash Jaramillo MD Calcium [Mass/Vol] 9.9 mg/dL Normal 8.6-10.4 [facility] Comment on above: Performed By: #### C P, TROPI #### [facility] [address] [place] [address] Information Assurance Manager: Flash Jaramillo MD Chloride [Moles/Vol] 101 mmol/L Normal 98-107 [facility] Comment on above: Performed By: #### C P, TROPI #### [facility] [address] [place] [address] Information Assurance Manager: Flash Jaramillo MD CO2 [Moles/Vol] 24 mmol/L Normal 20-31 [facility] Comment on above: Performed By: #### C P, TROPI #### [facility] [address] [place] [address] Information Assurance Manager: Flash Jaramillo MD Creatinine [Mass/Vol] 1.04 mg/dL High 0.50-0.90 [facility] Comment on above: Performed By: #### C P, TROPI #### [facility] [address] [place] [address] Information Assurance Manager: Flash Jaramillo MD GFR, Amer >60 Normal >60 [facility] Comment on above: Performed By: #### C P, TROPI #### [facility] [address] [place] [address] Information Assurance Manager: Flash Jaramillo MD GFR,non Amer 55 mL/min Low >60 [facility] Comment on above: Performed By: #### C P, TROPI #### [facility] [address], [place] [phone] Information Assurance Manager: Flash Jaramillo MD Glucose [Mass/Vol] 126 mg/dL High 70-99 [facility] Comment on above: Performed By: #### C P, TROPI #### [facility] [address], [place] [id number] Information Assurance Manager: Flash Jaramillo MD Potassium [Moles/Vol] 4.2 mmol/L Normal 3.7-5.3 [facility] Comment on above: Performed By: #### C P, TROPI #### [facility] [address] [place] [address] Information Assurance Manager: Flash Jaramillo MD Protein [Mass/Vol] 7.9 g/dL Normal 6.4-8.3 [facility] Comment on above: Performed By: #### C P, TROPI #### [facility] [address], [place] [id number] Information Assurance Manager: Flash Jaramillo MD Sodium [Moles/Vol] 135 mmol/L Normal 135-144 [facility] Comment on above: Performed By: #### C P, TROPI #### [facility] [address], [place] [id number] Information Assurance Manager: Flash Jaramillo MD Urea nitrogen [Mass/Vol] 17 mg/dL Normal 6-20 [facility] Comment on above: Performed By: #### C P, TROPI #### [facility] [address], [place] [id number] Information Assurance Manager: Flash Jaramillo MD Albumin/Glob Ratio NOT REPORTED Normal 1.0-2.5 [facility] Comment on above: Performed By: #### C P, TROPI #### [facility] [address] [place] [address] Information Assurance Manager: Flash Jaramillo MD Staging: NOT REPORTED Normal [facility] Comment on above: Performed By: #### C P, TROPI #### [facility] [address] [place] [address] Information Assurance Manager: Flash Jaramillo MD Comprehensive Metabolic Pane lOrdered By: Tita Palma on 01-13-2021 Albumin [Mass/Vol] 4.3 g/dL 3.5 - 5.2 g/dL [facility] Phone: Albumin/Globulin Ratio NOT REPORTED [facility] Phone: ALP (Bld) [Catalytic activity/Vol] 165 U/L High 35 - 104 U/L [employer] Phone: ALT [Catalytic activity/Vol] 24 U/L 5 - 33 U/L [employer] Phone: Anion gap [Moles/Vol] 10 mmol/L 9 - 17 mmol/L [employer] Phone: AST [Catalytic activity/Vol] 14 U/L <32 [facility] Phone: Bilirubin [Mass/Vol] 0.24 mg/dL Low 0.30 - 1.20 mg/dL [facility] Phone: Calcium [Mass/Vol] 9.9 mg/dL 8.6 - 10. 4 mg/dL [employer] Phone: Chloride [Moles/Vol] 101 mmol/L 98 - 10 7 mmol/L [facility] Phone: CO2 [Moles/Vol] 24 mmol/L 20 - 31 mmol/L [facility] Phone: Creatinine [Mass/Vol] 1.04 mg/dL High 0.50 - 0.90 mg/dL [employer] Phone: Free PSA/Total PSA [Mass fraction] 7.9 g/dL 6.4 - 8.3 g/dL [employer] Phone: GFR >60 >60 mL/min Results [employer] Phone: GFR Non- 55 mL/min Low >60 [facility] Phone: GFR/1.73 sq M.predicted MDRD (S/P/Bld) [Vol rate/Area] [employer]ix Phone: Comment on above: Average GFR for 50-5 9 years old: 93 mL/min/1.73sq m Chronic Kidney Disease: <60 mL/min/1.73sq m Kidney failure: <15 mL/min/1.73sq m eGFR calculated using average adult body mass. Additional eGFR calculator available at: http://www.[employer]/multiple_crcl_2012.htm GFR/1.73 sq M.predicted MDRD (S/P/Bld) [Vol rate/Area] NOT REPORTED [facility] Phone: Glucose [Mass/Vol] 126 mg/dL High 70 - 99 mg/dL [employer] Phone: Interpretation and review of laboratory results Abnormal [employer] Phone: Potassium [Moles/Vol] 4.2 mmol/L 3.7 - 5.3 mmol/L [facility] Phone: Sodium [Moles/Vol] 135 mmol/L 135 - 144 mmol/L [employer] Phone: Urea nitrogen (BldV) [Mass/Vol] 17 mg/dL 6 - 20 mg/dL [employer] Phone: Urea nitrogen/Creatinine (Bld) [Mass ratio] 16 [employer] Phone: hipix Phone: D-Dimer Teston 01-13-2021 D-Dimer Test 0.88 mg/L FEU High 0.00-0.59 [facility] Comment on above: Result Comment: When combined with a low clinical probability, a D dimer value of <0.50 mg/L FEU is considered negative for DVT and PE (negative predictive value of 98%, sensitivity of 97%). If this test is not being used to help rule out DVT and PE, then the following reference range should be utilized: 0.00 - 0.59 mg/L FEU. The D-Dimer assay is intended for use as an aid in the diagnosis of venous thromboembolism (DVT and PE) and the results should be interpreted in conjunction with the patient's medical history, clinical presentation, and other findings. Elevated levels of D-dimer activity can be seen in any state of coagulation activation and is not recommended in patients with therapeutic dose anticoagulant therapy for >24 hours, fibrinolytic therapy within the previous 7 days, trauma or surgery within the previous 4 weeks, disseminated malignancies, aortic aneurysm, sepsis, severe infections, pneumonia, severe skin infections, liver cirrhosis, advanced age, coronary disease, diabetes, and . A very low percentage of patients with DVT may yield D-dimer results below the cutoff of 0.5 mg/L FEU. This is known to be more prevalent in patients with distal DVT. Performed By: #### D JOSE A, CDP, REJEC #### [facility] [address] [place] [address] Information Assurance Manager: Flash Jaramillo MD D-Dimer, QuantitativeOrdered By: Tita Palma on 01-13-2021 D-Dimer, Quant 0.88 [facility] Work Phone: Comment on above: When combined with a low clinical probability, a D dimer value of <0.50 mg/L FEU is considered negative for DVT and PE (negative predictive value of 98%, sensitivity of 97%). If this test is not being used to help rule out DVT and PE, then the following reference range should be utilized: 0.00 - 0.59 mg/L FEU. The D-Dimer assay is intended for use as an aid in the diagnosis of venous thromboembolism (DVT and PE) and the results should be interpreted in conjunction with the patient's medical history, clinical presentation, and other findings. Elevated levels of D-dimer activity can be seen in any state of coagulation activation and is not recommended in patients with therapeutic dose anticoagulant therapy for >24 hours, fibrinolytic therapy within the previous 7 days, trauma or surgery within the previous 4 weeks, disseminated malignancies, aortic aneurysm, sepsis, severe infections, pneumonia, severe skin infections, liver cirrhosis, advanced age, coronary disease, diabetes, and . A very low percentage of patients with DVT may yield D-dimer results below the cutoff of 0.5 mg/L FEU. This is known to be more prevalent in patients with distal DVT. Interpretation and review of laboratory results Abnormal [facility] Phone: [facility] Phone: SPECIMEN REJECTIONOrdered By : Tita Palma on 01-13-2021 - NOT REPORTED [facility] Phone: Ordered Test CP [facility]OP [facility] Phone: Reason for Rejection Unable to perform testing: Specimen hemolyzed. [facility] Phone: Specimen source Nom (Unsp spec) BLOOD IV START [facility] Phone: [facility]ix Phone: Specimen Rejectionon 021 Reason for rejection Unable to perform testing: Specimen hemolyzed. [facility] Comment on above: Performed By: #### D DRE NARANJO, REJEC #### [facility] [address] [place] [address] Information Assurance Manager: Flash Jaramillo MD Source of sample BLOOD IV START [facility] Comment on above: Performed By: #### D DRE NARANJO, REJEC #### [facility] [address] [place] [address] Information Assurance Manager: Flash Jaramillo MD Test ordered CP TROP [facility] Comment on above: Performed By: #### D DRE NARANJO, REJEC #### [facility] [address] [place] [address] Information Assurance Manager: Flash Jaramillo MD ----- NOT REPORTED Normal [facility] Comment on above: Performed By: #### D JOSE A, CDP, REJEC #### [facility] [address] [place] [address] Information Assurance Manager: Flash Jaramillo MD Troponinon 01-13-2021 Troponin, High Sens <6 Normal 0-14 [facility] Comment on above: Result Comment: High Sensitivity Troponin values cannot be compared with other Troponin methodologies. Patients with high levels of Biotin oral intake (i.e >5mg/day) may have falsely decreased Troponin levels. Samples collected within 8 hours of biotin intake may require additional information for diagnosis. Performed By: #### T ROPI #### [facility] [address] [place] [address] Information Assurance Manager: Flash Jaramillo MD Troponin Interp. NOT REPORTED Normal [facility] Comment on above: Performed By: #### T ROPI #### [facility] [address] [place] [address] Information Assurance Manager: Flash Jaramillo MD Troponin T NOT REPORTED Normal <0.03 [facility] Comment on above: Performed By: #### T ROPI #### [facility] [address] [place] [address] Information Assurance Manager: Flash Jaramillo MD Troponin, High Sens <6 Normal 0-14 [facility] Comment on above: Result Comment: High Sensitivity Troponin values cannot be compared with other Troponin methodologies. Patients with high levels of Biotin oral intake (i.e >5mg/day) may have falsely decreased Troponin levels. Samples collected within 8 hours of biotin intake may require additional information for diagnosis. Performed By: #### C P, TROPI #### [facility] [address] [place] [address] Information Assurance Manager: Flash Jaramillo MD Troponin Interp. NOT REPORTED Normal [facility] Comment on above: Performed By: #### C P, TROPI #### [facility] [address] [place] [address] Information Assurance Manager: Flash Jaramillo MD Troponin T NOT REPORTED Normal <0.03 [facility] Comment on above: Performed By: #### C P, TROPI #### [facility] [address] [place] [address] Information Assurance Manager: Flash Jaramillo MD TroponinOrdered By: Tita Palma on 01-13-2021 Troponin Interp NOT REPORTED [employer] Work Phone: Troponin T NOT REPORTED <0.03 ng/mL [employer] Work Phone: Troponin, High Sensitivity <6 0 - 14 ng/L [facility] Phone: Comment on above: High Sensitivity Troponin values cannot be compared with other Troponin methodologies. Patients with high levels of Biotin oral intake (i.e >5mg/day) may have falsely decreased Troponin levels. Samples collected within 8 hours of biotin intake may require additional information for diagnosis. [facility] Phone: Troponin Interp NOT REPORTED [employer] [facility] Work Phone: Troponin T NOT REPORTED <0.03 ng/mL [employer] Work Phone: Troponin, High Sensitivity <6 0 - 14 ng/L [facility] Phone: Comment on above: High Sensitivity Troponin values cannot be compared with other Troponin methodologies. Patients with high levels of Biotin oral intake (i.e >5mg/day) may have falsely decreased Troponin levels. Samples collected within 8 hours of biotin intake may require additional information for diagnosis. [facility] Phone: XR CHEST PORTABLEon 01-14-20 XR CHEST PORTABLE EXAM: XR CHEST PORTABLE HISTORY: Shortness of breath, chest pain. COMPARISON: None. TECHNIQUE: AP radiograph of the chest was performed. FINDINGS: No focal consolidation, pneumothorax or pleural effusion. There is mild elevation of the right hemidiaphragm. The cardiomediastinal silhouette is unremarkable. There are degenerative changes of the spine. IMPRESSION: No focal consolidation, pneumothorax or pleural effusion. Interpreted by: Sarbjit Ramirez MD Signed by: Sarbjit Ramirez MD 01/13/21 Final result Normal [facility] XR CHEST PORTABLEOrdered By: Tita Palma on 01-13-2021 No focal consolidation, pneumothorax or pleural effusion. [facility] Phone: EXAM: XR CHEST PORTABLE HISTORY: Shortness of breath, chest pain. COMPARISON: None. TECHNIQUE: AP radiograph of the chest was performed. FINDINGS: No focal consolidation, pneumothorax or pleural effusion. There is mild elevation of the right hemidiaphragm. The cardiomediastinal silhouette is unremarkable. There are degenerative changes of the spine. [facility] Phone: Moreno, Mhpn Incoming Radiant Results From [employer] - 01/13/2021 8:24 PM EDT EXAM: XR CHEST PORTABLE HISTORY: Shortness of breath, chest pain. COMPARISON: None. TECHNIQUE: AP radiograph of the chest was performed. FINDINGS: No focal consolidation, pneumothorax or pleural effusion. There is mild elevation of the right hemidiaphragm. The cardiomediastinal silhouette is unremarkable. There are degenerative changes of the spine. IMPRESSION: No focal consolidation, pneumothorax or pleural effusion. [facility] Phone: [facility]ix Phone: Vital Signs Date Time Vital Sign Value Performing Clinician Facility 06-16-2023 10:00-0500 Body height 157.48 cm Samra Wick Other [facility] Other 06-16-2023 10:00-0500 Body mass index (BMI) [Ratio] 35.52 kg/m2 Samra Shamika Other [facility] Other 06-16-2023 10:00-0500 Body temperature 98 [degF] Samra Shamika Other [facility] Other 06-16-2023 10:00-0500 Body weight 88.09 kg Samra Wick Other [facility] Other 06-16-2023 10:00-0500 Diastolic blood pressure 80 mm[Hg] Samra Wick Other [facility] Other 06-16-2023 10:00-0500 Respiratory rate 18 /min Samra Wick Other [facility] Other 06-16-2023 10:00-0500 SaO2% (BldA) [Mass fraction] 95 % Samra Wick Other [facility] Other 06-16-2023 10:00-0500 Systolic blood pressure 132 mm[Hg] Samra Wick Other [facility] Other 09-20-2022 11:45-0500 Body height 157.48 cm Siobhan Gonzalezault Other [facility] Other 09-20-2022 11:45-0500 Body mass index (BMI) [Ratio] 34.93 kg/m2 Siobhan Luigi Other [facility] Other 09-20-2022 11:45-0500 Body temperature 98.3 [degF] Siobhan Luigi Other [facility] Other 09-20-2022 11:45-0500 Body weight 86.64 kg Siobhan Luigi Other [facility] Other 09-20-2022 11:45-0500 Respiratory rate 18 /min Siobhan Meyers Other [facility] Other 09-20-2022 11:45-0500 SaO2% (BldA) [Mass fraction] 98 % Siobhan Meyers Other [facility] Other 06-30-2022 18:35-0500 Body height 157.48 cm Cassandra Dumont Other [facility] Other 06-30-2022 18:35-0500 Body mass index (BMI) [Ratio] 34.56 kg/m2 Cassandra Dumont Other [facility] Other 06-30-2022 18:35-0500 Body temperature 97.7 [degF] Cassandra Dumont Other [facility] Other 06-30-2022 18:35-0500 Body weight 85.73 kg Cassandra Dumont Other [facility] Other 06-30-2022 18:35-0500 Diastolic blood pressure 72 mm[Hg] Cassandra Dumont Other [facility] Other 06-30-2022 18:35-0500 Respiratory rate 18 /min Cassandra Dumont Other [facility] Other 06-30-2022 18:35-0500 SaO2% (BldA) [Mass fraction] 98 % Cassandra Dumont Other [facility] Other 06-30-2022 18:35-0500 Systolic blood pressure 126 mm[Hg] Cassandra Dumont Other [facility] Other 12-18-2021 16:55-0400 Body height 157.48 cm Siobhan Meyers Other [facility] Other 12-18-2021 16:55-0400 Body mass index (BMI) [Ratio] 32.92 kg/m2 Siobhan Meyers Other [facility] Other 12-18-2021 16:55-0400 Body temperature 98.9 [degF] Siobhan Gonzalezault Other [facility] Other 12-18-2021 16:55-0400 Body weight 81.65 kg Siobhan Meyers Other [facility] Other 12-18-2021 16:55-0400 Respiratory rate 16 /min Siobhan Meyers Other [facility] Other 12-18-2021 16:55-0400 SaO2% (BldA) [Mass fraction] 95 % Siobhan Meyers Other [facility] Other 01-13-2021 22:34-0400 Diastolic blood pressure 80 mm[Hg] Tita Palma MD Work Phone: [facility] Work Phone: 01-13-2021 22:34-0400 Heart rate 78 /min Tita Palma MD Work Phone: [employer] Work Phone: 01-13-2021 22:34-0400 Respiratory rate 17 /min Tita Palma MD Work Phone: [facility] Work Phone: 01-13-2021 22:34-0400 Systolic blood pressure 134 mm[Hg] Tita Palma MD Work Phone: [facility] Work Phone: 01-13-2021 19:33-0400 Body temperature 98.01 [degF] Tita Palma MD Work Phone: [facility] Work Phone: 01-13-2021 19:33-0400 Body weight 79.38 kg Tita Palma MD Work Phone: [employer] Work Phone: 01-13-2021 19:33-0400 SaO2% (BldA) [Mass fraction] 99 % Tita Palma MD Work Phone: [employer] Work Phone: Encounters Encounter Date Encounter Type Care Provider Facility Start: 06-29-2023 End: 06-29-2023 ambulatory CHRIS DHILLON Not Available Start: 06-16-2023 End: 06-16-2023 ambulatory Samra Wick Other [facility] Other Start: 06-16-2023 Office outpatient vi sit 15 minutes Samra Wick [facility] Start: 05-23-2023 Letter encounter Marisol gross Start: 01-05-2023 End: 01-05-2023 ambulatory [facility] Start: 12-09-2022 End: 12-09-2022 ambulatory [facility] Start: 10-30-2022 End: 10-30-2022 ambulatory PACHECO [facility] Start: 10-12-2022 End: 10-13-[address] ROMAIN CAN Facility: Start: 09-20-2022 End: 09-20-2022 ambulatory Siobhan Meyers Other [facility] Other Start: 09-20-2022 Office outpatient vi sit 15 minutes Siobhan Meyers [facility] Start: 06-30-2022 End: 06-30-2022 ambulatory Cassandra Dumont Other [facility] Other Start: 06-30-2022 Office outpatient vi sit 25 minutes Cassandra Dumont [facility] Start: 12-18-2021 End: 12-18-2021 ambulatory Siobhan Meyers Other [facility] [employer] Other Start: 12-18-2021 Office outpatient vi sit 25 minutes Siobhan Meyers [facility] Start: 07-30-2021 End: 10-29-2021 Patient encounter procedure MORALES BILLARI [facility] Start: 01-13-2021 End: 01-14-2021 Emergency department patient visit [facility] Start: 01-13-2021 End: 01-13-2021 Emergency department patient visit Tita Palma MD Work Phone: [facility] Comment on above: Chest pain, unspecif ied type (Primary Dx); Anxiety state Procedures Date Procedure Procedure Detail Performing Clinician Start: 12-09-2022 Follow-up visit Follow-up TERESSA OLIVEROS Start: 01-13-2021 Ct angiography chest w/contrast/noncontrast Tita Palma MD Work Phone: Start: 01-13-2021 Assay of troponin quantitative Tita Palma MD Work Phone: Start: 01-13-2021 Radiologic exam ches t single view Tita Palma MD Work Phone: Start: 01-13-2021 End: 01-13-2021 Comprehensive metabolic panel Tita Palma MD Work Phone: Start: 01-13-2021 SPECIMEN REJECTION Brown Palma MD Work Phone: Start: 01-13-2021 Ecg routine ecg w/le ast 12 lds w/i&r Tita Palma MD Work Phone: Plan of Treatment Date Care Activity Detail Author Start: 07-16-2030 DTaP/Tdap/Td vaccine (2 - Td or Tdap) DTaP/Tdap/Td vaccine (2 - Td or Tdap) [facility] Phone: Start: 09-15-2023 End: 09-15-2023 Patient encounter procedure 09/15/2023 10:50 AM EST Procedure Visit [facility] [id number] Pasquale Rosa, [address] [place] [address] [facility] Start: 2023 RSV vaccine (optional 60+ years) RSV vaccine (optional 60+ years) [facility] Start: 03-26-2023 Influenza vaccination Influenza Vaccine (#1) [facility] Start: 03-26-2021 Influenza vaccination Flu vaccine (Season Ended) [facility] Phone: Start: 2013 Screening for malignant neoplasm of breast Breast cancer screen [facility] Phone: Start: 2013 Screening for malignant neoplasm of colon Colon cancer screen colonoscopy [facility] Phone: Start: 2013 Shingles (RZV) Vaccine (1 of 2) Shingles (RZV) Vaccine (1 of 2) [facility] Start: 2013 Shingles Vaccine (1 of 2) Shingles Vaccine (1 of 2) [facility] Phone: Start: 2008 Cholesterol [Mass/volume] in Serum or Plasma Cholesterol [facility] Start: 2008 Screening for malignant neoplasm of colon [facility] Start: 2003 Lipid panel Lipid screen [facility] Phone: Start: 2003 Screening for malignant neoplasm of breast Mammography [facility] Start: 1984 Screening for malignant neoplasm of cervix [facility] Start: 1982 Tetanus vaccination Tetanus (Td or Tdap) Booster [facility] Start: 1981 Hepatitis C screening Hepatitis C Antibody [facility] Start: 1981 Tetanus + diphtheria + acellular pertussis vaccine (product) Tdap Booster [facility] Start: 1978 HIV screening [facility] Start: 1975 COVID-19 Vaccine (1) COVID-19 Vaccine (1) [facility] Phone: Start: 1963 COVID-19 Vaccine (#1) COVID-19 Vaccine (#1) [facility] Start: 1963 Hepatitis C screening Hepatitis C screen [facility] Phone: Start: 1963 Screening for malignant neoplasm of colon Colonoscopy [facility] EKG 12 Lead EKG 12 Lead ECG Routine 01/13/2021 7:37 PM EDT [facility] Phone: Payers Date Payer Category Payer Unknown SP/UNINSURED [employer] 2023-Present Other [id number] 2020 Medicaid [id number] 1963 Unknown [id number] 1963 Unknown [id number] 1963 Unknown [id number] 1959 Medicaid [id number] Social History Date Type Detail Facility Start: 01-13-2021 Tobacco smoking stat [facility] Never smoker [facility] Phone: Start: 01-13-2021 Tobacco use and exposure Never used [facility] Start: 01-13-2021 Alcohol intake Lifetime non-d melchor (finding) [facility] Work Phone: Start: 01-13-2021 History SDOH Alcohol Frequency 1 [facility] Phone: Start: 01-13-2021 Alcohol Comment occasional [employer] [facility] Work Phone: Start: 1965 Sex Assigned At Not on file [employer] Work Phone: Exposure to SARS-CoV -2 (event) Not sure [facility] Sex Assigned At Female [facility] Tobacco smoking stat [facility] Tobacco smoking consumption unknown [facility] Clinical Notes 12-18-2021 to 06-16-2023 Note Date & Type Note Facility 06-16-2023 Evaluation note Encounter Date Diagnosis Assessment Notes May, Left ear impacted cerumen (ICD-10 - H61.22) Cerumen impaction home care material was printed May, Viral upper respiratory illness (ICD-10 - J06.9) Viral upper respiratory infection: adult home care material was printed Drink plenty fluids, get plenty of rest. Take Tylenol or Motrin as needed for aches pains or fevers. May return to work on your next scheduled shift. Follow-up with your family physician if no improvement in 2 to 3 days [facility] Other 06-13-2023 NoteCardiovascular Medicine [facility] SUBJECTIVE Chief Complaint Patient presents with Hypertension Sandro Severino is a 57 y.o. female here for follow-up. HPI PMHx: DM type II, HTN, HLD, fatty liver disease 01/05/2023 After last visit we had increased her carvedilol to 12.5mg BID. Since then, her BP has been much better and her dizziness/LH has resolved. She did have a headache a few days ago but nothing since then. She is unsure what her BP was during this time. She denies c/o CP, SOB, orthopnea, PND, LE edema, palpitations. She c/o pain at the bottom of her feet and toes. 12/09/2022 She has been having some intermittent dizziness, typically every other day. Started about 1 week ago. Occurs when she is at work. She feels like she is lightheaded when she is walking. She has been getting headaches. She has not been checking her BP lately. After her last appt her carvedilol was increased. She has not been taking lisinopril/hydrochlorothiazide since she started carvedilol. No issues with chest pain, dyspnea, palpitations, leg swelling, syncope. Last HPI per Dr. Burns (10/30/2022): Sandro Severino is a 57 y.o. female with a past medical history including HTN, HLD, and T2DM. She was recently evaluated by Cardiology in the hospital after presenting with complaints of chest pain. 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 Reportedly, her blood pressure was found to be severely elevated. In the hospital, nuclear myocardial perfusion scan was performed, as was echo. No reversible ischemia was noted on scan, and Echo was unremarkable and without any acute abnormalities. She denies any recurrence of chest pain since her discharge from the hospital, although she admits that she has not returned to work or participated in strenuous activity. Patient adamantly denies syncope, LE edema, orthopnea, PND, palps, or bleeding. Patient denies any previous history of CVA, PVD, Depressed LVEF, and CAD. Patient Active Problem List Diagnosis Benign hypertensive heart disease without heart failure Mixed hyperlipidemia Diabetes mellitus type II, non insulin dependent (CMS/HCC) Fatty liver Past Medical History: Diagnosis Date Benign hypertensive heart disease without heart failure 12/09/2022 Diabetes mellitus (CMS/HCC) No family history on file. Social History Tobacco Use Smoking status: Never Smokeless tobacco: Former Substance Use Topics Alcohol use: Yes Alcohol/week: 1.0 standard drink Types: 1 Cans of beer per week Drug use: Never No Known Allergies ROS Constitutional: Positive for malaise/fatigue. Musculoskeletal: Positive for arthritis and back pain. Neurological: Positive for headaches. All other systems reviewed and are negative. OBJECTIVE Visit Vitals BP 117/75 (BP Location: Left arm, Patient Position: Sitting) Pulse 75 Ht 1.575 m (5' 2 ) Wt 86.2 kg (190 lb) SpO2 95% BMI 34.75 kg/m??? Smoking Status Never BSA 1.94 m??? Medications: Current Outpatient Medications: aspirin 81 mg chewable tablet, Chew 81 mg in the morning., Disp: , Rfl: carvedilol (Coreg) 12.5 mg tablet, Take 1 tablet (12.5 mg) by mouth with breakfast and with evening meal., Disp: 180 tablet, Rfl: 3 escitalopram (Lexapro) 10 mg tablet, Take 10 mg by mouth in the morning., Disp: , Rfl: metFORMIN (Glucophage) 500 mg tablet, Take 500 mg by mouth in the morning and at bedtime., Disp: , Rfl: Physical Exam Vitals reviewed. Constitutional: Appearance: Normal appearance. She is normal weight. HENT: Head: Normocephalic and atraumatic. Right Ear: External ear normal. Left Ear: External ear normal. Eyes: Extraocular Movements: Extraocular movements intact. Conjunctiva/sclera: Conjunctivae normal. Pupils: Pupils are equal, round, and reactive to light. Neck: Vascular: No carotid bruit. Cardiovascular: Rate and Rhythm: Normal rate and regular rhythm. Pulses: Normal pulses. Heart sounds: Normal heart sounds. Pulmonary: Effort: Pulmonary effort is normal. Breath sounds: Normal breath sounds. Abdominal: General: Bowel sounds are normal. Palpations: Abdomen is soft. Musculoskeletal: Cervical back: Neck supple. Right lower leg: No edema. Left lower leg: No edema. Skin: General: Skin is warm and dry. Neurological: General: No focal deficit present. Mental Status: She is alert and oriented to person, place, and time. Psychiatric: Mood and Affect: Mood normal. Behavior: Behavior normal. Thought Content: Thought content normal. Judgment: Judgment normal. Labs: 12/29/2022 WBC 7.7, RBC 4.63, hgb 14.2, plt 311 Cr 0.73, BUN 11, K 4.2, Na 137, eGFR >60, AST 47, ALT 95 hgbA1c 6.5 Chol 164, LDL 92.4, HDL 49, trig 113 10/13/22 CBC - unremarkable CMP - kidney function normal, AST 113, ALT 223 hgbA1c - 8.4 Testing/Pr (more content not included)...[facility] 01-05-2023 NotePatient here for 1 mo follow up hypertension and hyperlipidemia. Had routine labs last week. Carvedilol was increased to 12.5mg bid about 2 weeks ago. She says dizziness/lightheadedness has resolved and she's feeling better. Denies chest pain and SOB. Review of Systems Constitutional: Positive for malaise/fatigue. Musculoskeletal: Positive for arthritis and back pain. Neurological: Positive for headaches. All other systems reviewed and are negative.[facility] 12-25-2022 NoteCOREG [facility] Patient is here today for a 1 month follow up. Review of Systems Constitutional: Positive for decreased appetite and weight loss. Musculoskeletal: Positive for arthritis and back pain. Neurological: Positive for dizziness, headaches and loss of balance. All other systems reviewed and are negative.[facility] 12-09-2022 NoteCardiovascular Medicine [facility] SUBJECTIVE Chief Complaint Patient presents with Follow-up 1 mo. Follow up Sandro Severino is a 57 y.o. female here for follow-up. HPI PMHx: DM type II, HTN, HLD, fatty liver disease She has been having some intermittent dizziness, typically every other day. Started about 1 week ago. Occurs when she is at work. She feels like she is lightheaded when she is walking. She has been getting headaches. She has not been checking her BP lately. After her last appt her carvedilol was increased. She has not been taking lisinopril/hydrochlorothiazide since she started carvedilol. No issues with chest pain, dyspnea, palpitations, leg swelling, syncope. Last HPI per Dr. Burns (10/30/2022): Sandro Severino is a 57 y.o. female with a past medical history including HTN, HLD, and T2DM. She was recently evaluated by Cardiology in the hospital after presenting with complaints of chest pain. 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 Reportedly, her blood pressure was found to be severely elevated. In the hospital, nuclear myocardial perfusion scan was performed, as was echo. No reversible ischemia was noted on scan, and Echo was unremarkable and without any acute abnormalities. She denies any recurrence of chest pain since her discharge from the hospital, although she admits that she has not returned to work or participated in strenuous activity. Patient adamantly denies syncope, LE edema, orthopnea, PND, palps, or bleeding. Patient denies any previous history of CVA, PVD, Depressed LVEF, and CAD. Patient Active Problem List Diagnosis Benign hypertensive heart disease without heart failure Mixed hyperlipidemia Diabetes mellitus type II, non insulin dependent (CMS/HCC) Fatty liver Past Medical History: Diagnosis Date Benign hypertensive heart disease without heart failure 12/09/2022 Diabetes mellitus (CMS/HCC) No family history on file. Social History Tobacco Use Smoking status: Never Smokeless tobacco: Former Substance Use Topics Alcohol use: Yes Alcohol/week: 1.0 standard drink Types: 1 Cans of beer per week Drug use: Never No Known Allergies ROS Constitutional: Positive for decreased appetite and weight loss. Musculoskeletal: Positive for arthritis and back pain. Neurological: Positive for dizziness, headaches and loss of balance. All other systems reviewed and are negative. OBJECTIVE Visit Vitals BP 160/82 (BP Location: Left arm, Patient Position: Sitting, BP Cuff Size: Adult) Pulse 61 Ht 1.575 m (5' 2 ) Wt 86.4 kg (190 lb 6.4 oz) SpO2 97% BMI 34.82 kg/m??? Smoking Status Never BSA 1.94 m??? Medications: Current Outpatient Medications: aspirin 81 mg chewable tablet, Chew 81 mg in the morning., Disp: , Rfl: carvedilol (Coreg) 6.25 mg tablet, Take 1 tablet (6.25 mg) by mouth with breakfast and with evening meal., Disp: 180 tablet, Rfl: 3 escitalopram (Lexapro) 10 mg tablet, Take 10 mg by mouth in the morning., Disp: , Rfl: latanoprost (Xalatan) 0.005 % ophthalmic solution, 1 drop at bedtime., Disp: , Rfl: metFORMIN (Glucophage) 500 mg tablet, Take 500 mg by mouth in the morning and at bedtime., Disp: , Rfl: Physical Exam Vitals reviewed. Constitutional: Appearance: Normal appearance. She is normal weight. HENT: Head: Normocephalic and atraumatic. Right Ear: External ear normal. Left Ear: External ear normal. Eyes: Extraocular Movements: Extraocular movements intact. Conjunctiva/sclera: Conjunctivae normal. Pupils: Pupils are equal, round, and reactive to light. Neck: Vascular: No carotid bruit. Cardiovascular: Rate and Rhythm: Normal rate and regular rhythm. Pulses: Normal pulses. Heart sounds: Normal heart sounds. Pulmonary: Effort: Pulmonary effort is normal. Breath sounds: Normal breath sounds. Abdominal: General: Bowel sounds are normal. Palpations: Abdomen is soft. Musculoskeletal: Cervical back: Neck supple. Right lower leg: No edema. Left lower leg: No edema. Skin: General: Skin is warm and dry. Neurological: General: No focal deficit present. Mental Status: She is alert and oriented to person, place, and time. Psychiatric: Mood and Affect: Mood normal. Behavior: Behavior normal. Thought Content: Thought content normal. Judgment: Judgment normal. Labs: 10/13/22 CBC - unremarkable CMP - kidney function normal, AST 113, ALT 223 hgbA1c - 8.4 Testing/Procedures: Stress test (10/13/22) -Normal myocardial perfusion scan ECHO (10/13/22) ASSESSMENT/PLAN: Diagnosis Plan 1. Benign hypertensive heart disease without heart failure 2. Mixed hyperlipidemia 3. Diabetes mellitus type II, non insulin dependent (CMS/HCC) 4. Fatty liver 5. Other chest pain Plan: -Her BP is elevated today. She is unsure what it has been running at home. She c/o feeli (more content not included)...[facility] 10-30-2022 NoteReview of Systems Cardiovascular: Positive for chest pain. Neurological: Positive for headaches. All other systems reviewed and are negative.[facility] 10-30-2022 NoteCardiology Clinic Note Chief Complaint: hospital follow up HPI: Sandro Severino is a 57 y.o. female with a past medical history including HTN, HLD, and T2DM. She was recently evaluated by Cardiology in the hospital after presenting with complaints of chest pain. 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 Reportedly, her blood pressure was found to be severely elevated. In the hospital, nuclear myocardial perfusion scan was performed, as was echo. No reversible ischemia was noted on scan, and Echo was unremarkable and without any acute abnormalities. She denies any recurrence of chest pain since her discharge from the hospital, although she admits that she has not returned to work or participated in strenuous activity. Patient adamantly denies syncope, LE edema, orthopnea, PND, palps, or bleeding. Patient denies any previous history of CVA, PVD, Depressed LVEF, and CAD. Cardiology ROS: GENERAL: Denies fever, chills, night sweats, weight loss. HEENT: Denies changes in vision, photophobia, changes in hearing, epistaxis, oral bleeding. CARDIOVASCULAR: Denies chest pain, exertional dyspnea, orthopnea/PND, lower extremity edema, palpitations, lightheadedness/dizziness. RESPIRATORY: Denies SOB, coughing, wheezing GI: Denies abdominal pain, nausea/vomiting, heartburn, melena/hematochezia. RENAL: Denies dysuria, hematuria, flank pain. MSK: Denies muscle weakness/pain, arthralgias/joint pain. NEUROLOGIC: Denies LOC, weakness, numbness, headaches. SKIN: Denies abnormal rashes or bleeding. PSYCH: Denies significant anxiety, depression, sleep disturbances. Past Medical History She has a past medical history of Diabetes mellitus ([facility]). Surgical History She has a past surgical history that includes Ablation of dysrhythmic focus. Social History She reports that she has never smoked. She has quit using smokeless tobacco. She reports current alcohol use of about 1.0 standard drink per week. She reports that she does not use drugs. Family History No family history on file. Medications Current Outpatient Medications on File Prior to Visit Medication Sig Dispense Refill aspirin 81 mg chewable tablet Chew 81 mg in the morning. latanoprost (Xalatan) 0.005 % ophthalmic solution 1 drop at bedtime. metFORMIN (Glucophage) 500 mg tablet Take 500 mg by mouth in the morning and at bedtime. No current facility-administered medications on file prior to visit. Allergies Patient has no known allergies. Physical Exam VITAL SIGNS: BP 137/88 (BP Location: Left arm, Patient Position: Sitting) Pulse 70 Wt 85.3 kg (188 lb) SpO2 99% Constitutional: Well developed, Well nourished, No acute distress, Non-toxic appearance. HENT: Normocephalic, Atraumatic, Bilateral external ears have normal appearance, Nose appears normal, nares are patent. Eyes: PERRLA, EOMI, Conjunctiva normal, No discharge. Neck: Normal range of motion, No tenderness, Supple, No stridor. No cervical lymphadenopathy noted. Cardiovascular: Normal heart rate, Normal rhythm, No murmurs, No rubs, No gallops. Thorax & Lungs: Normal breath sounds, No respiratory distress, No wheezing, No chest tenderness to palpation. Abdomen: Bowel sounds normal, Soft, Nontender, No masses, No pulsatile masses. Skin: Warm, Dry, No erythema, No rash. Back: No tenderness, No CVA tenderness. Extremities: Intact distal pulses, No edema, No tenderness, No cyanosis, No clubbing. Musculoskeletal: Grossly normal strength in extremities Neurologic: Alert & oriented x 3, no gross focal neurological deficits Psychiatric: Affect normal, Judgment normal, Mood normal. EKG results: No results found for this or any previous visit (from the past 4464 hour(s)). Echo results: No echocardiogram results found for the past 12 months Radiology: No image results found. Impression: -Single episode of chest pain with no recurrence, no ischemia on stress test -HTN: poorly controlled -HLD: started on atorvastatin while inpatient Plan: -Discussed options with patient. She has not had any recurrence of chest pain, per her report. As such, she would like to proceed with conservative management -Continue aspirin, statin -Will add coreg for better Bp control, possible CAD -If patient has recurrence of symptoms, consider further invasive testing/intervention -Optimize medical management -Aggressive risk factor modification -Plan of care discussed with patient. All questions were answered. Patient voices understanding and is agreeable with current plan. -Patient was educated on red flag symptoms. Strict return precautions were provided. Patient verbalizes understanding -Follow-up in cardiology clinic in 6-8 weeks, or sooner as needed Pacheco Burns MD Interventional Cardiology [facility]03-20-2023 NoteCARDIAC STRESS TEST Requesting Physician: Procedure Date:10/13/2022 REASON FOR THE TEST: Chest pain. Patient underwent a stress test. At baseline, the heart rate was noted to be 88 with a blood pressure 126/76. Patient exercised for 5 minutes and 51 seconds, reaching stage 2 and achieving 7 METS. The maximum heart rate was 151 beats per minute with a maximum blood pressure of 164/80. Patient achieved 92% of expected heart rate, making this a conclusive stress test that ruled out chronotropic incompetence. Baseline EKG showed sinus rhythm with normal interval. However, there was poor R-wave progression. Patient achieved stage 3 at 5 minutes 52 seconds into the exercise. However, there was some ST segment depression on lead 2. It was conclusively seen in all inferior leads. No ischemic changes were noted, and on recovery, no PVCs or arrhythmias were seen. EKG portion is negative for ischemia.[id number] Evaluation note* Encounter Date Diagnosis Assessment Notes Treatment Notes Treatment Clinical Notes Aug, Contact with and (suspected) exposure to other viral communicable diseases (ICD-10 - Z20.828) Aug, Laryngitis (ICD-10 - J04.0) Use drops as directed. May use cotton ball to keep drops in place. Do not use any qtips or any other objects to clean out ears. Do not recommend swimming or baths while treatment going on; may shower If you wear in ear style headphones - recommend cleaning them with alcohol between each use, changing ear plugs frequently. Aug, Sore throat (ICD-10 - J02.9) Aug, Other infective acute otitis externa of both ears (ICD-10 - H60.393) Symptoms of laryngitis is caused by viruses. Salt water gargles may help with discomfort. Take medications as directed. Cool mist humidifier, steaming up bathroom with shower may help with symptom relief. Follow up with primary care provider if no improvement of symptoms [facility] Other 12-06-2022 Evaluation note* Encounter Date Diagnosis Assessment Notes Treatment Notes Treatment Clinical Notes Jun, Viral URI (ICD-10 - J06.9) Advised patient that COVID/Influenza A/B/RSV PCR test was negative today. Advised patient that will treat as viral URI. Supportive care as directed, increase fluids and rest, Tylenol/Motrin as directed, OTC cough/cold remedies as directed on packaging, cool mist humidifier, throat lozenges. Use rx of Zofran as directed. Discussed infection control practices such as good hand washing and mask wearing. Patient to follow up with PCP if symptoms persist or worsen despite treatment. Immediate eval for SOB, difficulty, chest pain, fevers that do not break with antipyretic or any other concerning symptoms as reviewed on patient education handout. Patient verbalizes understanding and is agreeable to treatment plan. Patient left in stable condition Jun, Nausea (ICD-10 - R11.0) Follow above treatment plan recommendations Jun, Contact with and (suspected) exposure to other viral communicable diseases (ICD-10 - Z20.828) [facility] Other 05-26-2022 Evaluation note* Encounter Date Diagnosis Assessment Notes Treatment Notes Treatment Clinical Notes November, Cough (ICD-10 - R05.9) November, COVID-19 (ICD-10 - U07.1) Today you tested positive for the COVID virus. This mean you need to follow all CDC quarantine guidelines found at [email or web address]. It is important to rest, increase fluids, and stay at home. Contact PCP and inform them of results. Medications like Mucinex, Cepacol, Tylenol, saline nasal spray are over the counter medications that can help with the symptoms. Current guidelines include staying home, having no fever above 100.4 for 24 hours without medication and having significant improvement of symptoms before you are allowed to stop your quarantine.. For full guidelines go to CDC. GOV. Contact primary care and ask for guidance is essential to follow up * EDUCATION HANDOUT GIVEN ON OTC TREATMENTS, FOLLOW UP AND WHEN TO SEEK EMERGENCY TREATMENT [facility] Other Evaluation + Plan note No data available for this section [facility] Chest pain, unspecified type- Primary Anxiety state Anxiety state, unspecified documented in this encounter [facility] Phone: History general Narrative - Reported* Type Description Date Medical History Anxiety Medical History HTN (hypertension) Surgical History ablasion uterine [facility] Other History general Narrative - Reported* Type Description Date Medical History Anxiety Medical History HTN (hypertension) Surgical History ablasion uterine Hospitalization History Kidney Infection 1994 Hospitalization History chest pain 2022 [facility] Other Hospital Discharge instructions* Attachments The following attachments cannot be sent through Care Everywhere. * Chest Pain (Indonesian) * Anxiety Disorder (Indonesian) [facility] Work Phone: Hospital Discharge instructions No data available for this section [facility] Summary Purpose Family History No Family History Records FoundNo Family History Records FoundNo Family History Records FoundNo Family History Records FoundNo Family History Records Found Advance Directives No Advanced Directives Records FoundNo Advanced Directives Records FoundNo Advanced Directives Records FoundNo Advanced Directives Records FoundNo Advanced Directives Records Found Additional Source Comments Reason for Visit (unrecogniz ed section and content) Reason Comments Chest Pain pt states she starte d having anxiety when she got to work around 330. she has a history of anxiety, but states she now feels short of breath and has chest pain. she used to take anxiety meds, but she doesn't take them anymore. PRN Active and Recently Administ ered Medications (unrecognized section and content) Medication Order 01/11/2021 01/12/2021 01/13/2021 iopamidol (ISOVUE-370) 76 % injection 100 mL (COMPLETED) 100 mL, Intravenous, IMG ONCE PRN, Other, Starting on Wed01/13/21 at 2059, For 1 dose 2118 (Given - Provid er: Leonila Fernando) INFORMATION SOURCE (unrecogn ized section and content) DATE CREATED AUTHOR 01/14/2021 Mirian ashford DATE CREATED AUTHOR AUTHOR'S ORGANIZ ATION 02/11/2022 [facility] DATE CREATED AUTHOR AUTHOR'S ORGANIZ ATION 10/15/2022 [facility] DATE CREATED AUTHOR AUTHOR'S ORGANIZ ATION 01/06/2023 [facility] DATE CREATED AUTHOR AUTHOR'S ORGANIZ ATION 07/01/2023 [facility] EPIC FOR RECORDS PERTAINING TO PATIENTS WHO ARE OR HAVE BEEN ENROLLED IN A CHEMICAL DEPENDENCY/SUBSTANCEABUSE PROGRAM, SOME INFORMATION MAY BE OMITTED. This clinical summary was aggregated from multiple sources. Caution should be exercised in using it in the provision of clinical care. This summary normalizes information from multiple sources, and as a consequence, information in this document may materially change the coding, format and clinical context of patient data. In addition, data may be omitted in some cases. CLINICAL DECISIONS SHOULD BE BASED ON THE PRIMARY CLINICAL RECORDS. [facility] provides no warranty or guarantee of the accuracy or completeness of information in this document.
[2023-07-24 10:27] LABS: Basophils Absolute Auto 0.1 10^3/uL (0.0-0.1); Basophils Percent Auto 0.9 % (0.2-2.0); Eosinophils Absolute Auto 0.3 10^3/uL (0.0-0.7); Eosinophils Percent Auto 3.9 % (0.9-7.0); Hematocrit 43.7 % (36.0-48.0); Hemoglobin 14.3 g/dL (12.0-16.0); Immature Granulocytes Abs Auto 0.04 10^3/uL (0.00-0.03); Immature Granulocytes Pct Auto 0.6 % (0.0-0.5); Lymphocytes Absolute Auto 1.3 10^3/uL (1.2-3.8); Lymphocytes Percent Auto 18.9 % (20.5-60.0); Mean Corpuscular HGB Conc 32.7 g/dL (29.9-35.2); Mean Corpuscular Hemoglobin 29.5 pg (26.7-34.0); Mean Corpuscular Volume 90.3 fL (81.0-99.0); Mean Platelet Volume 10.3 fL (9.5-13.5); Monocytes Absolute Auto 0.4 10^3/uL (0.3-0.8); Monocytes Percent Auto 5.9 % (1.7-12.0); Neutrophils Absolute Auto 4.9 10^3/uL (1.4-6.5); Neutrophils Percent Auto 69.8 % (43.0-75.0); Platelet Count 331 10^3/uL (150-450); Red Blood Count 4.84 10^6/uL (4.20-5.40); Red Cell Distribution Width 12.5 % (11.0-15.0); White Blood Count 6.9 10^3/uL (4.0-11.0)
[2023-07-24 10:46] LABS: Alanine Aminotransferase 71 U/L (14-59); Aspartate Amino Transferase 26 U/L (15-37)
[2023-07-25 09:07] LABS: HIV Ab/p24 Ag Screen Non Reactive (Non Reactive)
[2023-07-25 11:07] LABS: HBsAg Screen Negative (Negative); HCV Antibody Non Reactive (Non Reactive)
[2023-07-27 16:08] LABS: QuantiFERON-TB Gold Plus Negative (Negative)
== END 2023-07-24 10:01 | disposition home or self-care (01) ==
PROVIDERS: PCP Physician Assistant; Visit Provider Nurse Practitioner
DX: L40.0 Psoriasis vulgaris (principal); Z79.899 Other long term (current) drug therapy
CPT/HCPCS: 36415; 84450; 84460; 85025; 86480; 86803; 87340; 87389

== ENCOUNTER 2023-10-01 13:14 | Outpatient (OUT) | payer OTHER, SELFPAY ==
[2023-10-01 14:02] LABS: Basophils Absolute Auto 0.1 10^3/uL (0.0-0.1); Basophils Percent Auto 1.2 % (0.2-2.0); Eosinophils Absolute Auto 0.3 10^3/uL (0.0-0.7); Eosinophils Percent Auto 4.1 % (0.9-7.0); Hematocrit 43.1 % (36.0-48.0); Hemoglobin 13.9 g/dL (12.0-16.0); Immature Granulocytes Abs Auto 0.06 10^3/uL (0.00-0.03); Immature Granulocytes Pct Auto 0.9 % (0.0-0.5); Lymphocytes Absolute Auto 1.2 10^3/uL (1.2-3.8); Lymphocytes Percent Auto 17.7 % (20.5-60.0); Mean Corpuscular HGB Conc 32.3 g/dL (29.9-35.2); Mean Corpuscular Hemoglobin 29.1 pg (26.7-34.0); Mean Corpuscular Volume 90.2 fL (81.0-99.0); Mean Platelet Volume 10.5 fL (9.5-13.5); Monocytes Absolute Auto 0.5 10^3/uL (0.3-0.8); Monocytes Percent Auto 7.7 % (1.7-12.0); Neutrophils Absolute Auto 4.7 10^3/uL (1.4-6.5); Neutrophils Percent Auto 68.4 % (43.0-75.0); Platelet Count 308 10^3/uL (150-450); Red Blood Count 4.78 10^6/uL (4.20-5.40); Red Cell Distribution Width 12.9 % (11.0-15.0); White Blood Count 6.9 10^3/uL (4.0-11.0)
[2023-10-01 14:39] LABS: Estimated Average Glucose 157 mg/dL; Glycohemoglobin A1C 7.1 % (4.5-6.2)
[2023-10-01 15:22] LABS: Alanine Aminotransferase 71 U/L (14-59); Albumin Globulin Ratio 0.8; Albumin Level 3.4 g/dL (3.4-5.0); Alkaline Phosphatase 147 U/L (46-116); Anion Gap 13.4; Aspartate Amino Transferase 27 U/L (15-37); BUN Creatinine Ratio 14.3; Bilirubin Total 0.4 mg/dL (0.2-1.0); Calcium 9.1 mg/dL (8.5-10.1); Carbon Dioxide 27.8 mmol/L (21.0-32.0); Chloride 105 mmol/L (98-107); Chol HDL Ratio 3.2; Cholesterol 165 mg/dL (<=200); Estimated GFR (African America >60 (>=60); Estimated GFR (Non-African Ame >60 (>=60); Globulin 4.2 g/dL; Glucose 127 mg/dL (74-106); HDL Cholesterol 51 mg/dL (40-60); LDL Cholesterol Calculated 101.6 mg/dL; Potassium 4.2 mmol/L (3.5-5.1); Sodium 142 mmol/L (136-145); Total Protein 7.6 g/dL (6.4-8.2); Triglycerides 62 mg/dL (<=150); VLDL CHOLESTEROL 12.4 mg/dL
== END 2023-10-01 13:15 | disposition home or self-care (01) ==
LOC: LAB 13:17
PROVIDERS: PCP Physician Assistant; Visit Provider Physician Assistant
DX: E11.9 Type 2 diabetes mellitus without complications (principal)
CPT/HCPCS: 36415; 80053; 80061; 83036; 85025

== ENCOUNTER 2023-10-28 15:04 | Outpatient (OUT) | payer OTHER, SELFPAY ==
[2023-10-28 16:14] LABS: TSH W/ REFLEX FT4 5.891 uIU/mL (0.358-3.740)
[2023-10-28 17:01] LABS: Free T4 0.77 ng/dL (0.76-1.46)
== END 2023-10-28 15:05 | disposition home or self-care (01) ==
LOC: LAB 15:05
PROVIDERS: PCP Nurse Practitioner; Visit Provider Nurse Practitioner
DX: Z13.29 Encounter for screening for other suspected endocrine disorder (principal)
CPT/HCPCS: 36415; 84439; 84443

== ENCOUNTER 2023-11-29 09:20 | Outpatient (OUT) | payer OTHER, SELFPAY ==
--- OUTSIDE RECORDS SUMMARY | 2023-11-29 09:47 | XMS_ITS | CCD ---
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 Role Phone Unavailable Primary Care Provider UnavailTITA Keenan Attending Unavailable MORALES ANGULO Primary Care Physician [phone] Siobhan Meyers Unavailable Cassandra Dumont Unavailable DR ROMAIN CAN Consulting Unavailyoni e ROSE MARIE ., FELIBERTO Attending Unavailable REQUEST, NONE LISTED Primary Care Unavaila ble ROSE MARIE ., FELIBERTO Admitting Unavailable DR DELL WINN Consulting Unavailable TERESSA OLIVEROS Consulting Unavailable ROSE MARIE ., FELIBERTO Consulting Unavailable Unavailable Primary Care Provider UnavailSamra Sexton Unavailable TERESSA OLIVEROS Attending Unavailable PACHECO BURNS Attending Unavailable PACHECO BURNS Attending Unavailable PACHECO BURNS Attending Unavailable TERESSA OLIVEROS Attending Unavailable PROVIDER, UNKNOWN Admitting Unavailable ALEJANDRA GOLDEN Attending Unavaila ble PROVIDER, UNKNOWN Admitting Unavailable AMINA MAC Attending Unavailable CHRIS DHILLON Attending Unavailable CHRIS DHILLON Attending Unavailable Medications Current [...] / neomycin 3.5 mg/ml / polymyxin b [id number] unt/ml otic solution (1 source) Aminoglycoside Antibacterial, Polymyxin-class Antibacterial, Corticosteroid Start: 09-20-19 Pnmyuojl-Vegozpeaa-AW [id number] 4 drops into affected ear Otic Three [...] Nausea and vomiting (1 source) Nausea Episodic Other aftercare (1 source) Other technician terminal and repeater (current) drug therapy; Translations: [OTH PENITENTIARY CURRENT DRUG THERAPY] Onset: 10-15-2022 Episodic Other [...] Classification Problem Date Documented Da te Episodic/Chronic Nonspecific chest pain (7 sources) Chest pain; Translations: [Chest pain, unspecified] Onset: 10-12-2022 Episodic Unclassified (1 source) Exposure to 2019 novel coronavirus; Translations: [Contact with and (suspected) exposure to COVID19] Unclassified (1 source) Cough R05.9 Onset: 12-18-2021 Resolved: 12-18-2021 Viral infection (1 source) COVID-19 Onset: 12-18-2021 Resolved: 12-18-2021 Results Test Name Value Interpretation Reference Range Facility Progress Noteson 10-22-2023 Quality Assurance Nurse Authentication Interface Message Text ----- Sunday, October 22, 2023 at 12:00:23 PM ----- ----- Provider: Edgardo Mac Hygienist -- Clinic: [place] ----- [facility], Pt is ready for tx. Pt is scheduled for Prophylaxis, pt has never had her teeth cleaned Examination of dentition and gingiva was done, and revealed that the pt has: Plaque slight Calculus heavy sub tenuous Staining slight *Hand scaling was done using curettes. *Ultrasonic used. Used topical generalized Teeth were polished with pumice. Pt tolerated procedure well. OHI and education were discussed with the pt. printed out appts. Place pt on 6 month recall. Examination completed 09/15/2023 NV: BRET see chart RECALL/ 6months. Amina Gann [facility] Normal [employer] Progress Noteson 09-15-2023 Quality Assurance Nurse Authentication Interface Message Text ----- Friday, September 15, 2023 at 11:18:51 AM ----- ----- Provider: [id number] - Resident Dayday -- Clinic: [place] ----- INITIAL/COMPREHENSIV E EXAM Patient presents for an Initial Examination. Reviewed patient's medical history. Patient has a history of: No significant medical history. N/C per pt.. No contraindications, patient is ready for treatment. Patient's chief complaint: Comp Exam Pain Scale: 0/10 Radiographs taken today were: Panorex, 4 BWs and 6 PAs Clinical Examination reveals: Decay and Gingivitis Soft tissue evaluation: Within Normal Limits TMJ evaluation: Normal TMJ Completed current status of dentition on the charting. Went over needs and treatment plan options with the patient. OHI were discussed with the patient. Pt Concern: Full Exam was successfully done. Patient consented to the treatment plan. PRIOR: Not needed Next Visit: Kev ----- Signed on Friday, September 15, 2023 at 11:23:03 AM ----- ----- Provider: [id number] - Pasquale Martin DDS -- Clinic: [place] ----- Normal [facility] [employer] [facility] Office Visiton 09-10-2023 Follow-up visit [id number] Sandro Severino 1965 F Date Provider Department Center 09/10/2023 [id number]-PACHECO BURNS Family History Problem Relation Age of Onset No Known Problems Mother No Known Problems Father No Known Problems Sister No Known Problems Brother Family Status - Relation Status Age at Mother Father Sister Brother Level of Service:[id number] [place] OFFICE/OUTPATIENT ESTABLISHED LOW MDM 20 MIN Normal [facility] Office Visiton 07-30-2023 Follow-up visit [id number] Sandro Severino 1965 F Date Provider Department Center 07/30/2023 384PACHECO PHILLIPS [facility] No family history on file Level of Service:[id number] [place] OFFICE/OUTPATIENT ESTABLISHED LOW MDM 20 MIN [facility] COVID/FLU RT-PCRon 3 SARS-CoV-2 (COVID-19) RNA RIDGE+probe Ql (Unsp spec) Negative [facility] Other COVID/FLU RT-PCR Negative [facility] Other Office Visiton 01-05-2023 Follow-up visit [id number] Sandro Severino 1965 F Date Provider Department Center 01/05/2023 TERESSA SOLOMON Hos No family history on file Level of Service:[id number] [place] OFFICE/OUTPATIENT ESTABLISHED LOW MDM 20-29 MIN Reason for Visit and Comments: Hypertension [446820] Normal [facility] 36on 12-24-2022 36 Her BP is more often running above goal. Would like to see her average BP running <130/90. We can either have her resume her losartan/hydrochloro thiazide or we can increase her carvedilol to 12.5mg BID. Normal [facility] Office Visiton 12-09-2022 Follow-up visit [id number] Sandro Severino 1965 F Date Provider Department Center 12/09/2022 TERESSA SOLOMON Hos No family history on file Level of Service:56317 [place] OFFICE/OUTPATIENT ESTABLISHED MOD MDM 30-39 MIN Reason for Visit and Comments: Follow-up [298824] - 1 mo. Follow up [facility] Office Visiton 10-30-2022 Follow-up visit [id number] Sandro Severino 1965 F Date Provider Department Center 10/30/2022 PACHECO GUILLORY [facility] No family history on file Level of Service:07343 [place] OFFICE/OUTPATIENT ESTABLISHED MOD MDM 30-39 MIN Reason for Visit and Comments: Chest Pain [578632] - f/u tbh hypertension chest pain pt states last night she was having some chest pain and headache last night Normal [facility] CBC AUTO DIFFon 10-13-2022 BASO # 0.1 103/ul Normal 0.0-0.1 [facility] Comment on above: Performed By: #### P OCGLUC #### [facility] [address] [address] [address] Gibson Jin Basophils/100 WBC (Bld) 1.0 % Normal 0.2-2.0 [facility] Comment on above: Performed By: #### P OCGLUC #### [facility] [address] [address] [address] Gibson Jin EO # 0.2 103/ul Normal 0.0-0.7 [facility] Comment on above: Performed By: #### P OCGLUC #### [facility] [address] [place] [address] Dr. Gibson Jin Eosinophils/100 WBC (Bld) 3.9 % Normal 0.9-7.0 [facility] Comment on above: Performed By: #### P OCGLUC #### [facility] [address] [address] [address] Gibson Jin Erythrocyte distribution width (RBC) [Ratio] 12.4 % Normal 11.0-15.0 [facility] Comment on above: Performed By: #### P OCGLUC #### [facility] [address] [place] [address] Dr. Gibson Jin Hematocrit (Bld) [Volume fraction] 43.4 % Normal 36.0-48.0 [facility] Comment on above: Performed By: #### P OCGLUC #### [facility] [address] [address] [address] Gibson Jin Hemoglobin (Bld) [Mass/Vol] 14.7 g/dL Normal 12.0-16.0 [facility] Comment on above: Performed By: #### P OCGLUC #### [facility] [address] [place] [address] Dr. Gibson Jin IG # 0.09 10e3/ul Critically high 0.00-0.03 [facility] Comment on above: Performed By: #### P OCGLUC #### [facility] [address] [address] [address] Gibson Jin IG % 1.5 % Critically high 0.0-0.5 [facility] Comment on above: Performed By: #### P OCGLUC #### [facility] [address] [address] [address] Gibson Jin LYMPH # 1.2 103/ul Normal 1.2-3.8 [facility] Comment on above: Performed By: #### P OCGLUC #### [facility] [address] [address] [address] Gibson Jin Lymphocytes/100 WBC (Bld) 19.4 % Critically low 20.5-60.0 [facility] Comment on above: Performed By: #### P OCGLUC #### [facility] [address] [address] [address] Gibson Jin MANUAL DIFF REQ NO Normal [facility] Comment on above: Performed By: #### P OCGLUC #### [facility] [address] [address] [address] Gibson Jin MCH (RBC) [Entitic mass] 30.2 pg Normal 26.7-34.0 [facility] Comment on above: Performed By: #### P OCGLUC #### [facility] [address] [address] [address] Gibson Jin MCHC (RBC) [Mass/Vol] 33.9 g/dL Normal 29.9-35.2 [facility] Comment on above: Performed By: #### P OCGLUC #### [facility] [address] [address] [address] Gibson Jin MCV (RBC) [Entitic vol] 89.1 fL Normal 81.0-99.0 [facility] Comment on above: Performed By: #### P OCGLUC #### [facility] [address] [address] [address] Gibson Jin MONO # 0.4 103/ul Normal 0.3-0.8 [facility] Comment on above: Performed By: #### P OCGLUC #### [facility] [address] [address] [address] Gibson Jin Monocytes/100 WBC (Bld) 6.9 % Normal 1.7-12.0 [facility] Comment on above: Performed By: #### P OCGLUC #### [facility] [address] [address] [address] Gibson Jin NEUT # 4.1 103/ul Normal 1.4-6.5 [facility] Comment on above: Performed By: #### P OCGLUC #### [facility] [address] [address] [address] Gibson Jin Neutrophils/100 WBC (Bld) 67.3 % Normal 43.0-75.0 [facility] Comment on above: Performed By: #### P OCGLUC #### [facility] [address] [place] [address] Dr. Gibson Jin Platelet mean volume (Bld) [Entitic vol] 10.3 fL Normal 9.5-13.5 [facility] Comment on above: Performed By: #### P OCGLUC #### [facility] [address] [address] [address] Gibson Jin PLT 273 103/ul Normal 150-450 [facility] Comment on above: Performed By: #### P OCGLUC #### [facility] [address] [place] [address] Dr. Gibson Jin RBC 4.87 106/ul Normal 4.20-5.40 [facility] Comment on above: Performed By: #### P OCGLUC #### [facility] [address] [place] [address] Dr. Gibson Jin WBC 6.1 103/ul Normal 4.0-11.0 [facility] Comment on above: Performed By: #### P OCGLUC #### [facility] [address] [place] [address] Dr. Gibson Jin ECHOCARDIO M/2D COMPLETEon 0 10-13-2022 ECHOCARDIO M/2D COMPLETE Patient: SANDRO SEVERINO Exam Date: 10/13/2022 : 1965 Gender:F Ordering : FELIBERTO TROTTER . Admission #: [id number] Family : Order #: [id number] CLICK HERE TO VIEW EXAM ECHOCARDIOGRAM REPORT [...] Mosquera M.D. on 10/13/2022 at 15:43 Normal [facility] GLYCOHEMOGLOBIN A1Con 2022 ADA RECOMMENDATION SEE BELOW Normal [facility] Comment on above: Result Comment: ADA RECOMMENDED LIMIT 4.0 - 6.0 ADA THERAPEUTIC TARGET < 7.0 ACTION SUGGESTED > 7.0 Performed By: #### A 1C #### [facility] [address] [place] [address] Dr. Gibson Jin Glucose [Mass/Vol] 197 mg/dL Normal [facility] Comment on above: Performed By: #### A 1C #### [facility] [address] [address] [address] Gibson Jin HbA1c (Bld) [Mass fraction] 8.5 % Critically high 4.5-6.2 [facility] Comment on above: Performed By: #### A 1C #### [facility] [address] [place] [address] Dr. Gibson Jin LIPID PROFILEon 10-13-2022 CHOL-HDL RATIO NORM SEE BELOW Normal [facility] Comment on above: Result Comment: 3.3 - 4.4 LOW RISK 4.4 - 7.1 AVERAGE RISK 7.1 - 11.0 MODERATE RISK >11.0 HIGH RISK Performed By: #### T SH, CMP, LIPID #### [facility] [address] [address] [address] Gibson Jin Cholesterol [Mass/Vol] 167 mg/dL Normal <=200 [facility] Comment on above: Performed By: #### T SH, CMP, LIPID #### [facility] [address] [address] [address] Gibson Jin Cholesterol in HDL [Mass/Vol] 45 mg/dL Normal 40-60 [facility] Comment on above: Performed By: #### T SH, CMP, LIPID #### [facility] [address] [place] [address] Dr. Gibson Jin Cholesterol in LDL [Mass/Vol] 93.4 mg/dL Normal [facility] Comment on above: Performed By: #### T SH, CMP, LIPID #### [facility] [address] [place] [address] Dr. Gibson Jin Cholesterol.total/Chol esterol in HDL [Mass ratio] 3.7 {ratio} Normal [facility] Comment on above: Performed By: #### T SH, CMP, LIPID #### [facility] [address] [place] [address] Dr. Gibson Jin HDL NORMAL > or = 60 mg/dl - LOW CARDIOVASCULAR RISK <40 mg/dl - HIGH CARDIOVASCULAR RISK Normal [facility] Comment on above: Performed By: #### T SH, CMP, LIPID #### [facility] [address] [place] [address] Dr. Gibson Jin LDL CALC NORMAL SEE BELOW Normal [facility] Comment on above: Result Comment: <100 mg/dl OPTIMAL 100 - 129 mg/dl NEAR OR ABOVE OPTIMAL 130 - 159 mg/dl BORDERLINE HIGH 160 - 189 mg/dl HIGH >190 mg/dl VERY HIGH Performed By: #### T SH, CMP, LIPID #### [facility] [address] [place] [address] Dr. Gibson Jin Triglyceride [Mass/Vol] 143 mg/dL Normal <=150 [facility] Comment on above: Performed By: #### T SH, CMP, LIPID #### [facility] [address] [place], [place] [address] Dr. Gibson Jin VLDL CALC 28.6 mg/dL Normal [facility] Comment on above: Performed By: #### T SH, CMP, LIPID #### [facility] [address] [place], [place] [address] Dr. Gibson Jin NM STRESS/REST MULTIon 10-13 NM STRESS/REST MULTI Patient: SANDRO SEVERINO Exam Date: 10/13/2022 : 1965 Gender:F Ordering : TERESSA OLIVEROS [facility] Admission #: [id number] Family : FELIBERTO TROTTER . Order #: [id number] CLICK HERE TO VIEW EXAM RADIOLOGY REPORT [...] Winn M.D. on 10/13/2022 at 15:00 Normal [facility] POINT OF CARE GLUCOSEon 09-24 Glucose [Mass/Vol] 372 mg/dL Critically high 74-106 [facility] Comment on above: Performed By: #### P OCGLUC #### [facility] [address] [address] [address] Gibson Jin Glucose [Mass/Vol] 131 mg/dL Critically high 74-106 [facility] Comment on above: Performed By: #### P OCGLUC #### [facility] [address] [address] [address] Gibson Jin PROF 14(COMP METB)on 023 Albumin [Mass/Vol] 3.3 g/dL Critically low 3.4-5.0 [facility] Comment on above: Performed By: #### T SH, CMP, LIPID #### [facility] [address] [address] [address] Gibson Jin Albumin/Globulin [Mass ratio] 0.9 {ratio} Normal [facility] Comment on above: Performed By: #### T SH, CMP, LIPID #### [facility] [address] [address] [address] Gibson Jin ALP [Catalytic activity/Vol] 123 U/L Critically high 46-116 [facility] Comment on above: Performed By: #### T SH, CMP, LIPID #### [facility] [address] [place] [address] Dr. Gibson Jin ALT [Catalytic activity/Vol] 223 U/L Critically high 14-59 [facility] Comment on above: Performed By: #### T SH, CMP, LIPID #### [facility] [address] [address] [address] Gibson Jin Anion gap [Moles/Vol] 10.0 mmol/L Normal [facility] Comment on above: Performed By: #### T SH, CMP, LIPID #### [facility] [address] [place] [address] Dr. Gibson Jin AST [Catalytic activity/Vol] 113 U/L Critically high 15-37 [facility] Comment on above: Performed By: #### T SH, CMP, LIPID #### [facility] [address] [address] [address] Gibson Jin Bilirubin [Mass/Vol] 0.7 mg/dL Normal 0.2-1.0 [facility] Comment on above: Performed By: #### T SH, CMP, LIPID #### [facility] [address] [address] [address] Gibson Jin Calcium [Mass/Vol] 9.1 mg/dL Normal 8.5-10.1 [facility] Comment on above: Performed By: #### T SH, CMP, LIPID #### [facility] [address] [place] [address] Dr. Gibson Jin Chloride [Moles/Vol] 102 mmol/L Normal 98-107 [facility] Comment on above: Performed By: #### T SH, CMP, LIPID #### [facility] [address] [place] [address] Dr. Gibson Jin CO2 [Moles/Vol] 30.0 mmol/L Normal 21.0-32.0 [facility] Comment on above: Performed By: #### T SH, CMP, LIPID #### [facility] [address] [place] [address] Dr. Gibson Jin Creatinine [Mass/Vol] 0.73 mg/dL Normal 0.55-1.02 [facility] Comment on above: Performed By: #### T SH, CMP, LIPID #### [facility] [address] [place] [address] Dr. Gibson Jin EGFR-AF J[place]ICAN >60 Normal >=[address] [facility] Comment on above: Performed By: #### T SH, CMP, LIPID #### [facility] [address] [place] [address] Dr. Gibson Jin EGFR-NON AF [place]ICAN >60 Normal >=60 [facility] Comment on above: Performed By: #### T SH, CMP, LIPID #### [facility] [address] [place] [address] Dr. Gibson Jin Globulin (S) [Mass/Vol] 3.5 g/dL Normal [facility] Comment on above: Performed By: #### T SH, CMP, LIPID #### [facility] [address] [address] [address] Gibson Jin Glucose [Mass/Vol] 165 mg/dL Critically high 74-106 [facility] Comment on above: Performed By: #### T SH, CMP, LIPID #### [facility] [address] [address] [address] Gibson Jin Potassium [Moles/Vol] 4.0 mmol/L Normal 3.5-5.1 [facility] Comment on above: Performed By: #### T SH, CMP, LIPID #### [facility] [address] [place] [address] Dr. Gibson Jin Protein [Mass/Vol] 6.8 g/dL Normal 6.4-8.2 [facility] Comment on above: Performed By: #### T SH, CMP, LIPID #### [facility] [address] [place] [address] Dr. Gibson Jin Sodium [Moles/Vol] 138 mmol/L Normal 136-145 [facility] Comment on above: Performed By: #### T SH, CMP, LIPID #### [facility] [address] [place] [address] Dr. Gibson Jin Urea nitrogen [Mass/Vol] 14.0 mg/dL Normal 7.0-18.0 [facility] Comment on above: Performed By: #### T SH, CMP, LIPID #### [facility] [address] [place] [address] Dr. Gibson Jin Urea nitrogen/Creatinine [Mass ratio] 19.2 mg/mg Normal [facility] Comment on above: Performed By: #### T SH, CMP, LIPID #### [facility] [address] [place] [address] Dr. Gibson Jin TSHon 10-13-2022 TSH 3.011 uIU/mL Normal 0.358-3.740 [facility] Comment on above: Performed By: #### T SH, CMP, LIPID #### [facility] [address] [place] [address] Dr. Gibson Jin US SINGLE QUAD RT [...] DELL WINN Date: 2022-10-13 13:22 Normal [facility] CBC AUTO DIFFon 10-12-2022 BASO # 0.1 103/ul Normal 0.0-0.1 [facility] Comment on above: Performed By: #### C BC #### [facility] [address] [address] [address] Gibson Jin Basophils/100 WBC (Bld) 1.0 % Normal 0.2-2.0 [facility] Comment on above: Performed By: #### C BC #### [facility] [address] [address] [address] Gibson Jin EO # 0.2 103/ul Normal 0.0-0.7 [facility] Comment on above: Performed By: #### C BC #### [facility] [address] [address] [address] Gibson Jin Eosinophils/100 WBC (Bld) 2.2 % Normal 0.9-7.0 [facility] Comment on above: Performed By: #### C BC #### [facility] [address] [address] [address] Gibson Jin Erythrocyte distribution width (RBC) [Ratio] 12.1 % Normal 11.0-15.0 [facility] Comment on above: Performed By: #### C BC #### [facility] [address] [address] [address] Gibson Jin Hematocrit (Bld) [Volume fraction] 43.1 % Normal 36.0-48.0 [facility] Comment on above: Performed By: #### C BC #### [facility] [address] [address] [address] Gibson Jin Hemoglobin (Bld) [Mass/Vol] 15.1 g/dL Normal 12.0-16.0 [facility] Comment on above: Performed By: #### C BC #### [facility] [address] [place] [address] Dr. Gibson Jin IG # 0.06 10e3/ul Critically high 0.00-0.03 [facility] Comment on above: Performed By: #### C BC #### [facility] [address] [place] [address] Dr. Gibson Jin IG % 0.8 % Critically high 0.0-0.5 [facility] Comment on above: Performed By: #### C BC #### [facility] [address] [address] [address] Gibson Jin LYMPH # 1.5 103/ul Normal 1.2-3.8 [facility] Comment on above: Performed By: #### C BC #### [facility] [address] [place] [address] Dr. Gibson Jin Lymphocytes/100 WBC (Bld) 20.1 % Critically low 20.5-60.0 [facility] Comment on above: Performed By: #### C BC #### [facility] [address] [address] [address] Gibson Jin MANUAL DIFF REQ NO Normal [facility] [facility] Comment on above: Performed By: #### C BC #### [facility] [address] [place] [address] Dr. Gibson iJn MCH (RBC) [Entitic mass] 30.6 pg Normal 26.7-34.0 [facility] Comment on above: Performed By: #### C BC #### [facility] [address] [address] [address] Gibson Jin MCHC (RBC) [Mass/Vol] 35.0 g/dL Normal 29.9-35.2 [facility] Comment on above: Performed By: #### C BC #### [facility] [address] [place] [address] Dr. Gibson Jin MCV (RBC) [Entitic vol] 87.2 fL Normal 81.0-99.0 [facility] Comment on above: Performed By: #### C BC #### [facility] [address] [place] [address] Dr. Gibson Jin MONO # 0.5 103/ul Normal 0.3-0.8 [facility] Comment on above: Performed By: #### C BC #### [facility] [address] [place] [address] Dr. Gibson Jin Monocytes/100 WBC (Bld) 6.5 % Normal 1.7-12.0 [facility] Comment on above: Performed By: #### C BC #### [facility] [address] [place] [address] Dr. Gibson Jin NEUT # 5.0 103/ul Normal 1.4-6.5 [facility] Comment on above: Performed By: #### C BC #### [facility] [address] [place] [address] Dr. Gibson Jin Neutrophils/100 WBC (Bld) 69.4 % Normal 43.0-75.0 [facility] Comment on above: Performed By: #### C BC #### [facility] [address] [place] [address] Dr. Gibson Jin Platelet mean volume (Bld) [Entitic vol] 10.6 fL Normal 9.5-13.5 [facility] Comment on above: Performed By: #### C BC #### [facility] [address] [place] [address] Dr. Gibson Jin PLT 281 103/ul Normal 150-450 [facility] Comment on above: Performed By: #### C BC #### [facility] [address] [address] [address] Gibson Jin RBC 4.94 106/ul Normal 4.20-5.40 [facility] Comment on above: Performed By: #### C BC #### [facility] [address] [address] [address] Gibson Jin WBC 7.3 103/ul Normal 4.0-11.0 [facility] Comment on above: Performed By: #### C BC #### [facility] [address] [place] [address] Dr. Gibson Jin Covid-19 PCR ([facility])on 09-24 SARS-CoV-2 (COVID-19) RNA RIDGE+probe Ql (Unsp spec) Not detected Normal NOT DETECTED [facility] Comment on above: Result Comment: When diagnostic [...] for this test is supported by the [place] [employer]'s declaration that [...] used). Performed By: #### P OCGLUC #### [facility] [address] [place] [address] Dr. Gibson Jin D-DIMERon 10-12-2022 D-DIMER 0.34 mg/L FEU Normal <=0.[address] [facility] Comment on above: Performed By: #### P OCGLUC #### [facility] [address] [place] [address] Dr. Gibson Jin D-DIMER COMMENTS SEE BELOW Normal [facility] Comment on above: Result Comment: Incr eases [...] hospitalization. Performed By: #### P OCGLUC #### [facility] [address] [place] [address] Dr. Gibson Jin DRUG SCREEN RAPID (URINE)on 10-12-2022 AMP Negative Normal NEGATIVE [facility] Comment on above: Performed By: #### P OCGLUC #### [facility] [address] [place] [address] Dr. Gibson Jin BAR Negative Normal NEGATIVE [facility] Comment on above: Performed By: #### P OCGLUC #### [facility] [address] [place] [address] Dr. Gibson Jin BUP Negative Normal NEGATIVE [facility] Comment on above: Performed By: #### P OCGLUC #### [facility] [address] [place] [address] Dr. Gibson Jin BZO Negative Normal NEGATIVE [facility] Comment on above: Performed By: #### P OCGLUC #### [facility] [address] [place] [address] Dr. Gibson Jin CANDACE Negative Normal NEGATIVE [facility] Comment on above: Performed By: #### P OCGLUC #### [facility] [address] [place] [address] Dr. Gibson Jin CUT-OFFS SEE BELOW Normal [facility] Comment on above: Result Comment: AMP (Amphetamine): 500ng/mL, BAR (Barbituates): 200 ng/mL, BZO (Benzodiazepines): 150 ng/mL, BUP (Buprenorphine): 10 ng/mL, CANDACE (Cocaine): 150 ng/mL, mAMP (Methamphetamine): 500 ng/mL, MTD (Methadone): 200 ng/mL, OPI (Opiates): 100 ng/mL, OXY (Oxycodone): 100 ng/mL, PCP (Phencyclidine): 25 ng/mL, PPX (Propoxyphene): 300 ng/mL, THC (Cannabinoids): 50 ng/mL, TCA (Trycyclic Antidepressants): 300 ng/mL Performed By: #### P OCGLUC #### [facility] [address] [place] [address] Dr. Gibson Jin DRUG CUT HEADER DRUG CLASS TEST SYSTEM CUT-OFF CONCENTRATIONS ARE FOLLOWS: Normal [facility] Comment on above: Performed By: #### P OCGLUC #### [facility] [address] [place] [address] Dr. Gibson Jin mAMP Negative Normal NEGATIVE [facility] Comment on above: Performed By: #### P OCGLUC #### [facility] [address] [place] [address] Dr. Gibson Jin MTD Negative Normal NEGATIVE [facility] Comment on above: Performed By: #### P OCGLUC #### [facility] [address] [place] [address] Dr. Gibson Jin OPI Positive Abnormal NEGATIVE [facility] Comment on above: Performed By: #### P OCGLUC #### [facility] [address] [place] [address] Dr. Gibson Jin OXY Negative Normal NEGATIVE [facility] Comment on above: Performed By: #### P OCGLUC #### [facility] [address] [place] [address] Dr. Gibson Jin PCP Negative Normal NEGATIVE [facility] Comment on above: Performed By: #### P OCGLUC #### [facility] [address] [place] [address] Dr. Gibson Jin PPX Negative Normal NEGATIVE [facility] Comment on above: Performed By: #### P OCGLUC #### [facility] [address] [place] [address] Dr. Gibson Jin TCA Negative Normal NEGATIVE [facility] Comment on above: Performed By: #### P OCGLUC #### [facility] [address] [place] [address] Dr. Gibson Jin THC Negative Normal NEGATIVE [facility] Comment on above: Performed By: #### P OCGLUC #### [facility] [address] [address] [address] Gibson Jin POINT OF CARE GLUCOSEon 09-24 Glucose [Mass/Vol] 220 mg/dL Critically high 74-106 [facility] Comment on above: Performed By: #### P OCGLUC #### [facility] [address] [address] [address] Gibson Jin Glucose [Mass/Vol] 298 mg/dL Critically high 74-106 [facility] Comment on above: Performed By: #### P OCGLUC #### [facility] [address] [place] [address] Dr. Gibson Jin PROF 14(COMP METB)on 023 Albumin [Mass/Vol] 3.7 g/dL Normal 3.4-5.0 [facility] Comment on above: Performed By: #### C KARLIE HSTROPN #### [facility] [address] [place] [address] Dr. Gibson Jin Albumin/Globulin [Mass ratio] 1.0 {ratio} Normal [facility] Comment on above: Performed By: #### C KARLIE HSTROPN #### [facility] [address] [place] [address] Dr. Gibson Jin ALP [Catalytic activity/Vol] 175 U/L Critically high 46-116 [facility] Comment on above: Performed By: #### C KARLIE HSTROPN #### [facility] [address] [place] [address] Dr. Gibson Jin ALT [Catalytic activity/Vol] 167 U/L Critically high 14-59 [facility] Comment on above: Performed By: #### C KARLIE, HSTROPN #### [facility] [address] [place] [address] Dr. Gibson Jin Anion gap [Moles/Vol] 10.6 mmol/L Normal [facility] Comment on above: Performed By: #### C KARLIE, HSTROPN #### [facility] [address] [address] [address] Gibson Jin AST [Catalytic activity/Vol] 49 U/L Critically high 15-37 [facility] Comment on above: Performed By: #### C MP, HSTROPN #### [facility] [address] [place] [address] Dr. Gibson Jin Bilirubin [Mass/Vol] 0.4 mg/dL Normal 0.2-1.0 [facility] Comment on above: Performed By: #### C MP, HSTROPN #### [facility] [address] [address] [address] Gibson Jin Calcium [Mass/Vol] 9.1 mg/dL Normal 8.5-10.1 [facility] Comment on above: Performed By: #### C MP, HSTROPN #### [facility] [address] [place] [address] Dr. Gibson Jin Chloride [Moles/Vol] 102 mmol/L Normal 98-107 [facility] Comment on above: Performed By: #### C MP, HSTROPN #### [facility] [address] [place] [address] Dr. Gibson Jin CO2 [Moles/Vol] 26.8 mmol/L Normal 21.0-32.0 [facility] Comment on above: Performed By: #### C MP, HSTROPN #### [facility] [address] [place] [address] Dr. Gibson Jin Creatinine [Mass/Vol] 0.90 mg/dL Normal 0.55-1.02 [facility] Comment on above: Performed By: #### C MP, HSTROPN #### [facility] [address] [address] [address] Gibson Jin EGFR-AF JAMAICAN >60 Normal >=[address] [facility] Comment on above: Performed By: #### C MP, HSTROPN #### [facility] [address] [place] [address] Dr. Gibson Jin EGFR-NON AF JAMAICAN >60 Normal >=60 [facility] Comment on above: Performed By: #### C MP, HSTROPN #### [facility] [address] [place] [address] Dr. Gibson Jin Globulin (S) [Mass/Vol] 3.6 g/dL Normal [facility] Comment on above: Performed By: #### C MP, HSTROPN #### [facility] [address] [place] [address] Dr. Gibson Jin Glucose [Mass/Vol] 288 mg/dL Critically high 74-106 [facility] Comment on above: Performed By: #### C MP, HSTROPN #### [facility] [address] [place] [address] Dr. Gibson Jin Potassium [Moles/Vol] 3.4 mmol/L Critically low 3.5-5.1 [facility] Comment on above: Performed By: #### C MP, HSTROPN #### [facility] [address] [place] [address] Dr. Gibson Jin Protein [Mass/Vol] 7.3 g/dL Normal 6.4-8.2 [facility] Comment on above: Performed By: #### C MP, HSTROPN #### [facility] [address] [place] [address] Dr. Gibson Jin Sodium [Moles/Vol] 136 mmol/L Normal 136-145 [facility] Comment on above: Performed By: #### C MP, HSTROPN #### [facility] [address] [place] [address] Dr. Gibson Jin Urea nitrogen [Mass/Vol] 13.0 mg/dL Normal 7.0-18.0 [facility] Comment on above: Performed By: #### C MP, HSTROPN #### [facility] [address] [place] [address] Dr. Gibson Jin Urea nitrogen/Creatinine [Mass ratio] 14.4 mg/mg Normal [facility] Comment on above: Performed By: #### C MP, HSTROPN #### [facility] [address] [place] [address] Dr. Gibson Jin TROPONIN, HIGH SENSITIVITYon 10-12-2022 HSTROP <4.0 Normal 4.0-51.3 [facility] Comment on above: Result Comment: CUT- OFF POINTS HAVE BEEN ESTABLISHED BASED ON THE FOURTH UNIVERSAL DEFINITIONS OF MYOCARDIAL INFARCTION. THE UPPER REFERENCE LIMIT (URL) OF TROPONIN, DEFINED THE 99TH PERCENTILE OF cTnI DISTRIBUTION IN A REFERENCE POPULATION, HAS BEEN CONFIRMED THE DECISION THRESHOLD FOR SC DIAGNOSIS. Performed By: #### P OCGLUC #### [facility] [address] [address] [address] Gibson Jin HSTROP <4.0 Normal 4.0-51.3 [facility] Comment on above: Result Comment: CUT- OFF POINTS HAVE BEEN ESTABLISHED BASED ON THE FOURTH UNIVERSAL DEFINITIONS OF MYOCARDIAL INFARCTION. THE UPPER REFERENCE LIMIT (URL) OF TROPONIN, DEFINED THE 99TH PERCENTILE OF cTnI DISTRIBUTION IN A REFERENCE POPULATION, HAS BEEN CONFIRMED THE DECISION THRESHOLD FOR SC DIAGNOSIS. Performed By: #### C MP, HSTROPN #### [facility] [address] [address] [address] Gibson Jin XR CHEST 1 Von [...] by: DELL WINN Date: 2022-10-12 10:36 Normal [facility] COVID + FLU Quick Testingon 09-20-2022 SARS-CoV-2 (COVID-19) RNA RIDGE+probe Ql (Unsp spec) Negative [facility] Other COVID + FLU Quick Testing Negative [facility] Other Quick Strepon 09-20-2022 S. pyogenes Org specific cx Ql (Throat) Negative [facility] Other Quick Strep [facility] Other COVID/FLU/RSV RT-PCRon 06-30 SARS-CoV-2 (COVID-19) RNA RIDGE+probe Ql (Unsp spec) Negative [facility] Other COVID/FLU/RSV RT-PCR Negative [facility] Other Registrationon 02-04-2022 Registration [id number]# 1.00CD:127 [facility] Consenton 01-09-2022 Consent [id number] #1.00CD:127 [facility] COVID/FLU RT-PCRon SARS-CoV-2 (COVID-19) RNA RIDGE+probe Ql (Unsp spec) Positive [facility] Other COVID/FLU RT-PCR Negative [facility] Other Coding Summary.on 08-04-2021 Coding Summary. CD:[id number] Gh0bWw+PGhlYWQ+PE1FV XItG40jeBIgnG1FU2rQJ M8ZZTRFPDKUNY1WNI8so EC2EFkiA8WmclQu QkpqpSOgJL25PTa6RKG2 sVxdAZwsuI3bhEJzI3y4 RaWtNV20xC74XKciTUUk TfS7UeBciiavcFOp K8veVrBfuRHpZii+PHRh YmxlIHdpZHRoPScxMDAl HsEjrHlhRI6vJg2kYXYm LWNvbGxhcHNlOiBj l8otYMQxAKhuZO1snYot P1LsxNW5KANnh6s8Wd72 dHI+EPCfTEW4hUgtEVoe n814JbVrl6niNKD5 iRMoBUdkQWA5V33jx3V8 ACJuIDTuXSM7hGO3uZ9r cEsqxwbaI7UdrYRzSeO0 TTU7kEZnqE0hiOyw qnjozJ6uOzf+B99JKZ0Z DDEILK4BIsg8I5SzNbhm dHI+FM13AYUqRX25iASn kDTbr4pmlNy9UtRv GBJbUTW8qLtxPGnss5Bz TXVjE92lcLNii4W3SBPe fUafrLFzNvWhjZM0xE4d GGwrbpoup5qwvety Epcaq8dglr28rV80G58k DQkxUTEfHSB0SRNsINHz lArazl3afB1dCo1+IDxj t7vci4qqyNx6GsZr PCGaziSiwGsfICK6s9Se Fx08Y3VkrBphz9KmAxy2 vq65hWDxx2H3qUO2OQvw RSSfxO2gSFaaYfE6 GHBfFyHnrE51hEZwMPht Zo1iqFryzNbzOG8zSFKm ynopAWUrhV6fTYDooIHx hHlxHB7bYNSmkbvg b964RlIaAQB8GSPtyNQe A0PpdF3oSrPjAWOdBRVb N1WdeCUuNOlaL405NOuv DuM8QYGajqTkD3Id QHSqfQvzRpI4w9U6Zp9M p2JoippfCMZ4LYicJDAk IqAmFlIkRtU1S0NuPbf1 VKAteEpsSY6lF2Xb IWIorzxvmrrddBH3FRLf SGGbmD48eNNfYZlfFz0q v8U0i972IMFjYKGcjC55 Mp1wkXkwGFUkkSZJ nX0rgafwi9zfntimEuDk GUJgOPg9CWt0JMZddTsl WjGkTJT9MoP0JJZ6dJDe iN6pcCvongyozO7q Oyc+X13dxQ8dYLF1QEM2 spziVFYipySoXF46PJ78 C6DsKkrbcHOvkQH+PGRp rcRpoNnhSF3sJlVk u6upq7HwZEcmN9CaORSt FQsrMvc4NVXwLAZ0jCU0 pB9qOHHbCZybk9G4bQQ3 E2LenkDaiu5ee9uz FDHrUBdaY26jqFCkg2R3 WRPjkBV1LAMuaZzoEvJr cT25Pli+JVIjzZsgv0Po Biuci5mwi0bjjDq4 IjMwJSIgdmFsaWduPSJ0 h2BjWn90K49sYHqdKFIy KPZmHPObMJWrjPqwrb5d lB7oHo0+PGNvbCB3 zII9sG5mBDNpQhA6URip T287SoCesLTbOlcqi7sa y8nwcLw2KqKsCKJborJj eRvnKUA7t3NdIx02 Z35yKEbhWILwRXZrEVUx EOAujHfttn9msK5nWj8+ NF1uh1rotv96oV02dWQ+ XTFmRRT1cVlpEKfn TTXmjS4cDRbhFxH7SUPs NkQjbW08vMGuVCwsLa1s eZgkuKtrTS4wYNKipqic s877QwKgz0fnWAOc lCTnVFntZUD4P26xo9W9 JDJiGUHsTKQ0wML9bB1r bGlnbjogbGVmdDsgdmVy uUsmPVvgUFsoO454 IHRvcDsnPlBhdGllbnQg WrGeTDh2M7MlXmk5ACQz iPpzTY5zpBKjPScdPk2c wCijyMwrXL5iVSEz aoxfe959CgLmd5pwZRLt wIPcJBqoTFJ2K34oj1Q2 GLNhVFOkIGA0yAI6aT6h bGlnbjogbGVmdDsg bnNinNrrRBceOJdpI374 IHRvcDsnPkJpcnRoIERh nPA0KC64YN55cIFtk6T8 zRB2G1ZfOEFdczhd zjxvlCC8ZFHuMFHigV06 Ud6jpZhjJn5qWZQyUXZ3 VEGfhNEzH6IalB4mUtHt LIOjMZDcN1YulDTz LQggT419HEefIeN7QQFr cdTmQ5FxRPLekNcmJjT4 e7N8Aa2PU8F6DI02CF43 sVSpy8F3qID5G1Ry IIOxexvkecmezON6UAQi ZNZfmL01Pi3njZiaJc9r QYBnHMM4RYLzaRXwM2Ch pV4pRcHuJRMgBZZs E0OcqIIaDXqyT541LWco StR4MVUzziQqN6ImMRFv fNhrBuY5u0K6Bi0GQLf4 TN98PI03mOFbx8G7 eYD1P4EtGUZmefbnazni dYJ7DCYaKUBxeF44Ze0h kZjmFt8iTVKqEDG6KTQt pNXyD2YwwF5aBaQi XBNpELGsM6LezWKfHFlk A864AJccKxD5QKWnbsNy P8ErQEMgzGobWcY5v4Z3 Yy6USZEuQX46NDR0 cDK1CS92VI94I0MqSajb dGFibGU+PHRhYmxlIHdp ZHRoPScxMDAlJyBzdHls WY3xAa3uHBPsSYRk hQvojRHoRxOxa3gjPZFh ONskRI1rpDhqS4EsqAM2 UNWcj4n1Ei23V88tX8Nl dXA+TBMcuTI1lTU5 eA2xBdLbPaE0HHktT818 ZuRgkFEsJaean9vsj3vq aEy2GeW8NKHvfwUgePib QWY6p4XwIe66C82j IHdpZHRoPSIxNSUiIHZh nJkunc1poK1eUh5+PGNv lWN7jKR2kP2iNzDtAjS5 BOcwT003LqUcyNId Kfios9dmb9ntyNt6IoNr XSGsymYdhTbeDLS4t2Xj Rv61L4LqnMbha9JwLbe5 cr16jMSgp2I3mTE8 V8HeKTMfdqqtySAeaXuk VH3sJSJnocpkABIapF6a UPBrR6u3DvZbHeQ7WWtf O7BtevC0PJOxrPZs DTtyDGR4O70pu3W2UITe ARFgUPU8fAI4nB2xrQkz bjogbGVmdDsgdmVydGlj YIpcAMrtT510NFXa mJonYGIeaI1dFKLcoEFr zCxsII2kIVBjergoCpfH UkNJQSwgTUFSSUEgRDwv dGQ+QILxOFD2tGdq PCjvYDGhxT0zQADsE4l1 EyNsVfH2KEuaT7XmMAOp obugCv86oY8gJtBwPzL7 ZMxfQ1NnouY9LWYi rVNvJOuhQRS3T56iw4X2 QSSfIMEfTYA4qHD4mR7b bGlnbjogbGVmdDsgdmVy xPywVXjkGLjhY718 RJDjcWtiXtSkRnC6NhB9 XuJ4E9OlGhp7WKRviXpz QK5yhCTcLIgdVe6kaUhn wUuzUJ7tQCWjivvx HUWzgL3gJIEfuSDfaUgt YY0xYZLajwbsm007WiTz TRO7EDVkfCUhF7PllY6u ToFmEYKpYCBtX2Ik uNAjXEgtJ597MHkzRoR3 RDAgyfHvM8DaCDPzwHta VpV8a9N5Us99REGVMIJj czwvdGQ+PHRkIHN0 bZxsEBbxVICyyP7oQXQt N7i2TmYtEtR4MTlaZ1Wx LLSgtdilNp77lB2nZmIj JdH6LHrfF1ZnvwL2 RZIkcPJoHJxfAEW5N00x x3Y2SCMfROLkMCU7pEA6 cD9cwXpkdaqhiRFfmEab dmVydGljYWwtYWxp I265VCYkhXhoIeXioWHc ZTwvdGQ+LCPaGWX8aPwq UUjqWWVcxM7vGXEgL8z0 BjBqAeI4OYxuA5Zy PDVczucuEr28bR0aCiTw GsS2EIfmH2VdgqC6OSRs lNYcBVmiLZZ5M76co5W9 GDVaDQPyTKB7gZU5 gQ1hnFjigpipoZOddGov ahCnbXzoLZcbUCvoE325 HTIfyDnfRrXmT4Bvgkph ZzwvdGQ+GD07np08 R9MsOuzeFqd0QWKtWNQ3 hDM7iS8hODDzPQioz3B3 yTJ5L0ZsgiNagh9oq1fs RLNeVEhvD44bmHWt a9Y8TGNpaGK9KKVluXuk FqFmtZ79Nmp+PGNvbGdy g0SbBcwac3vfc0etbIc0 IjMwJSIgdmFsaWdu MTG7i6CgTs93Z18zOGdh ZHRoPSIzMCUiIHZhbGln lc7eaF8gAf7+PGNvbCB3 yAZ6iN0dUwFkCpQ2 CYxvC999MuYvsQSdJlsa p2gqw3yasWa4LdMkEBCs cbBjmLfyRXK0c4SbZf47 I6YcvQuoj3XaMqn4 oe77qANik0I3xME7E9By VGEixtaajXCaqExdTS5j NAKwhriiYPLfdN9aSHWa A2e1SfCmWrF8JVfm H3ChftA5RJFzdPTuGVDx pCRFcC9nicyif8bjwtjc FkAmIXKwNEv0GWy6DDWv qIctHmGjKIH0GqB5 MEI6rNAkpW3bxJjlbufu iY8lIhk+DLx2l6ztdFQi OZ0vtGU9LL92CV95uWCp o7U8rMZ0B7IuIVFg aksirnwejJF8NMGeFDXs hY66Qt1ucNvkNj3yCKZa MLJ7LRSjmAHaT4VspR8o IgWaHCOtZSXaE0Dk jTLdRQixD696ZYjqGtI8 TMXbxaUcM7UaIOWnuWrk XkW0l7L6Dd3ZKV48QF08 FO45vRAhe8F3jAM7 V6OvDSHyfsohxoahvJT4 LVQsSLTlkA39Bx2wiQzs Wl9oFSEiDRU9PUPwzCFg N6OnrC7qTkEbXFNo LGDhQ6IqyTFaXGbqT763 SFrwNnJ8BKPtawHvX3Ww PVAxkDlkNwQ6u1C5Cp8A Cl52UI70WD08cJCi l7N2cHH2D5BzNMOhwodd vyqegLW6HEKiKKNynC03 Gx4ctWbdJy6sNWOvYNT1 ZAPygQYeH5AvyN2r YiSlAMPxJKKqC1BbdXAe WXziK154UYtmOjB3XMYh vcPmL1LwFHImhAdgXpX4 d0W0Gu0ROSoeyhd9 X9BmXmihvYO+RF97WNUt LR18hLTlbJCqh8vdvHl3 ThFxGALeKLK7mZzrQJyo u9ZqPJTjT87ghKFa c2U6 (more content not included)... Normal [facility] Consent for Treatmenton Consent for Treatment [id number]#1.00CD:[address] [facility] COVID-19 ([facility])on 08-01-2021 SARS-CoV-2 (COVID-19) RNA RIDGE+probe Ql (Resp) Not detected Normal Not Detected [facility] Comment on above: Result Comment: This test result should be correlated with clinical presentations and medical history by a healthcare provider to determine its clinical significance. This assay was performed by a reverse transcriptase real-time polymerase chain reaction (rt PCR) method on the [employer] system. This test has been authorized only [...] or revoked sooner. Performed By: #### 2 [id number] #### [facility] [address] [place] [address] SARS-CoV-2 (COVID-19) RNA RIDGE+probe Ql (Unsp spec) Pass Normal Pass [facility] Comment on above: Performed By: #### 2 [id number] #### [facility] [address] [place] [address] Specimen source Nom (Unsp spec) Nasal Normal [facility] Comment on above: Performed By: #### 2 [id number] #### [facility] [address] [place] [address] COVID-19 ([facility])on 07-30-2021 ADMITTED TO INTENSIVE CARE UNIT FOR CONDITION OF INTEREST:FIND:PT: Unknown Normal [facility] Comment on above: Performed By: #### 2 [id number] #### [facility] [address] [place] [address] EMPLOYED IN A HEALTHCARE SETTING:FIND:PT: Unknown Normal [facility] Comment on above: Performed By: #### 2 [id number] #### [facility] [address] [place] [address] FIRST TEST FOR CONDITION OF INTEREST:FIND:PT: Unknown Normal [facility] Comment on above: Performed By: #### 2 [id number] #### [facility] [address] [place] [address] HAS SYMPTOMS RELATED TO CONDITION OF INTEREST:FIND:PT: Unknown Normal [facility] Comment on above: Performed By: #### 2 [id number] #### [facility] [address] [place] [address] HOSPITALIZED FOR CONDITION OF INTEREST:FIND:PT: Unknown Normal [facility] Comment on above: Performed By: #### 2 [id number] #### [facility] [address] [place] [address] STATUS:FIND:PT: Unknown Normal [facility] Comment on above: Performed By: #### 2 [id number] #### [facility] [address] [place] [address] RESIDES IN A CONGREGATE CARE SETTING:FIND:PT: Unknown Normal [facility] Comment on above: Performed By: #### 2 [id number] #### [facility] [address] [place] [address] CTA CHEST W CONTRASTon 01-14 CTA CHEST [...] Kwabena Peña MD 01/13/21 Final result Normal [facility] CBC Auto DifferentialOrdered By: Tita Edwards on 01-13-2021 Absolute Eos # 0.10 [employer] [facility] th Work Phone: Absolute Immature Granulocyte NOT REPORTED [email or web address] Work Phone: Absolute Lymph # 0.80 Low [employer] alth Work Phone: Absolute [place] # 0.50 [facility] Work Phone: Basophils (Bld) [#/Vol] 0.00 10*3/uL [email or web address] Work Phone: Basophils/100 WBC (Bld) 0 % 0 - 2 % [email or web address] Work Phone: Differential Type YES [facility] Work Phone: Eosinophils/100 WBC (Bld) 1 % 0 - 5 % [email or web address] Work Phone: Hematocrit (Bld) [Volume fraction] 42.0 % 36 - 46 % [email or web address] Work Phone: Hemoglobin.gastrointes tinal spec 1 Ql (Stl) 14.3 g/dL 12.0 - 16.0 g/dL [employer] Work Phone: Immature Granulocytes NOT REPORTED 0 % M [employer] Phone: Interpretation and review of laboratory results Abnormal [employer] Phone: Lymphocytes/100 WBC (Bld) 11 % Low 15 - 40 % [email or web address] Work Phone: MCH (RBC) [Entitic mass] 29.5 pg 26 - 34 pg [email or web address] Work Phone: MCHC (RBC) [Mass/Vol] 34.1 g/dL 31 - 37 g/dL [facility] Work Phone: MCV (RBC) [Entitic vol] 86.5 fL 80 - 100 fL [email or web address] Work Phone: Monocytes/100 WBC (Bld) 7 % 4 - 8 % [facility] Phone: NRBC Automated NOT REPORTED per 100 WBC [employer] Work Phone: Platelet distribution width (Bld) [Ratio] 13.3 % 12.1 - 15.2 % [facility] Phone: Platelet Estimate NOT REPORTED [facility] Phone: Platelet mean volume (Bld) [Entitic vol] NOT REPORTED 6.0 - 12.0 fL [facility] Phone: Platelets (Bld) [#/Vol] 340 10*3/uL [facility] Phone: RBC (Bld) [#/Vol] 4.86 10*6/uL 4.0 - 5.2 m/uL [facility] Phone: RBC (Bld) [#/Vol] NOT REPORTED [facility] Phone: Segmented neutrophils/100 WBC (Bld) 81 % High 47 - 75 % [facility] Phone: Segs Absolute 6.30 [facility] Work Phone: WBC (Bld) [#/Vol] 7.8 10*3/uL [facility] Phone: WBC (Bld) [#/Vol] NOT REPORTED [facility] Phone: [facility] Phone: CBC with Diffon 01-13-2021 Abs. Basophil 0.00 k/uL Normal 0.0-0.2 [facility] Comment on above: Performed By: #### D DRE NARANJO, AMANDA #### [facility] [address] [place] [address] Balling Machine Operator: Flash Jaramillo MD Abs.Neutrophil (Seg) 6.30 k/uL Normal 2.5-7.0 [facility] Comment on above: Performed By: #### D JOSE A CDP, REJEC #### [facility] [address] [place], [place] [phone] Balling Machine Operator: Flash Jaramillo MD Auto Diff Performed YES Normal [facility] Comment on above: Performed By: #### D JOSE A CDP, REJEC #### [facility] [address] [phone] Balling Machine Operator: Flash Jaramillo MD Basophils/100 WBC (Bld) 0 % Normal 0-2 [facility] Comment on above: Performed By: #### D JOSE A CDP, REJEC #### [facility] [address] [place] [address] Balling Machine Operator: Flash Jaramillo MD Eosinophils (Bld) [#/Vol] 0.10 10*3/uL Normal 0.0-0.4 [facility] Comment on above: Performed By: #### D JOSE A CDP, REJEC #### [facility] [address] [phone] Balling Machine Operator: Flash Jaramillo MD Eosinophils/100 WBC (Bld) 1 % Normal 0-5 [facility] Comment on above: Performed By: #### Maris NARANJO CDP, REJEC #### [facility] [address] [phone] Balling Machine Operator: Flash Jaramillo MD Erythrocyte distribution width (RBC) [Ratio] 13.3 % Normal 12.1-15.2 [facility] Comment on above: Performed By: #### D JOSE A CDP, REJEC #### [facility] [address] [phone] Balling Machine Operator: Flash Jaramillo MD Hematocrit (Bld) [Volume fraction] 42.0 % Normal 36-46 [facility] Comment on above: Performed By: #### D JOSE A CDP, REJEC #### [facility] [address] [place], [place] [phone] Balling Machine Operator: Flash Jaramillo MD Hemoglobin (Bld) [Mass/Vol] 14.3 g/dL Normal 12.0-16.0 [facility] Comment on above: Performed By: #### DRE SIU, REJEC #### [facility] [address] [place] [address] Balling Machine Operator: Flash Jaramillo MD Lymphocytes (Bld) [#/Vol] 0.80 10*3/uL Low 1.0-4.8 [facility] Comment on above: Performed By: #### DRE SIU, REJEC #### [facility] [address] [place] [address] Balling Machine Operator: Flash Jaramillo MD Lymphocytes/100 WBC (Bld) 11 % Low 15-40 [facility] Comment on above: Performed By: #### DRE SIU, REJEC #### [facility] [address] [place] [address] Balling Machine Operator: Flash Jaramillo MD MCH (RBC) [Entitic mass] 29.5 pg Normal 26-34 [facility] Comment on above: Performed By: #### DRE SIU, REJEC #### [facility] [address] [place] [address] Balling Machine Operator: Flash Jaramillo MD MCHC (RBC) [Mass/Vol] 34.1 g/dL Normal 31-37 [facility] Comment on above: Performed By: #### DRE SIU, REJEC #### [facility] [address] [place] [address] Balling Machine Operator: Flash Jaramillo MD MCV (RBC) [Entitic vol] 86.5 fL Normal 80-100 [facility] Comment on above: Performed By: #### DRE SIU, REJEC #### [facility] [address] [place] [address] Balling Machine Operator: Flash Jaramillo MD Monocytes (Bld) [#/Vol] 0.50 10*3/uL Normal 0.0-1.0 [facility] Comment on above: Performed By: #### D JOSE A CDP, REJEC #### [facility] [address] [place], [place] [phone] Balling Machine Operator: Flash Jaramillo MD Monocytes/100 WBC (Bld) 7 % Normal 4-8 [facility] Comment on above: Performed By: #### DRE SIU, REJEC #### [facility] [address] [place] [address] Balling Machine Operator: Flash Jaramillo MD Neutrophil (Seg) 81 % High 47-75 [facility] Comment on above: Performed By: #### DRE SIU, REJEC #### [facility] [address] [phone] Balling Machine Operator: Flash Jaramillo MD Platelets (Bld) [#/Vol] 340 10*3/uL Normal 140-450 [facility] Comment on above: Performed By: #### DRE SIU, REJEC #### [facility] [address] [phone] Balling Machine Operator: Flash Jaramillo MD RBC (Bld) [#/Vol] 4.86 10*6/uL Normal 4.0-5.2 [facility] Comment on above: Performed By: #### DRE SIU, REJEC #### [facility] [address] [place] [address] Balling Machine Operator: Flash Jaramillo MD WBC (Bld) [#/Vol] 7.8 10*3/uL Normal 3.5-11.0 [facility] Comment on above: Performed By: #### DRE SIU, REJEC #### [facility] [address] [place], [place] [phone] Balling Machine Operator: Flash Jaramillo MD Abs.Imm.Granulocyte NOT REPORTED Normal 0.00-0.30 [facility] Comment on above: Performed By: #### D DRE NARANJO, REJEC #### [facility] [address] [place], [place] [phone] Balling Machine Operator: Flash Jaramillo MD Immature Granulocyte NOT REPORTED Normal 0 [facility] Comment on above: Performed By: #### D DRE NARANJO, REJEC #### [facility] [address] [place] [address] Balling Machine Operator: Flash Jaramillo MD MPV NOT REPORTED Normal 6.0-12.0 [facility] Comment on above: Performed By: #### D DRE NARANJO, REJEC #### [facility] [address] [phone] Balling Machine Operator: Flash Jaramillo MD NRBC Automated NOT REPORTED Normal [facility] Comment on above: Performed By: #### D DRE NARANJO, REJEC #### [facility] [address] [phone] Balling Machine Operator: Flash Jaramillo MD Platelet Estimate NOT REPORTED Normal [facility] Comment on above: Performed By: #### D DRE NARANJO, REJEC #### [facility] [address] [phone] Balling Machine Operator: Flash Jaramillo MD RBC morphology finding Nom (Bld) NOT REPORTED Normal [facility] Comment on above: Performed By: #### D DRE NARANJO, REJEC #### [facility] [address] [phone] Balling Machine Operator: Flash Jaramillo MD WBC Morphology NOT REPORTED Normal [facility] Comment on above: Performed By: #### D DRE NARANJO, REJEC #### [facility] [address] [place] [address] Balling Machine Operator: Flash Jaramillo MD CTA CHEST W CONTRASTOrdered By: Tita Edwards on 01-13-2021 No evidence for acute large occlusive pulmonary embolism. No evidence for thoracic aortic aneurysm or dissection flap. No suspicious lung infiltrates or consolidation. Hepatic steatosis. Mild gastroesophageal wall thickening, correlate clinically. [email or web address] Work Phone: EXAMINATION: CTA CHEST W CONTRAST [...] distal esophagitis/wall lesion. No acute bony abnormality. [facility] Phone: [place], [facility] Incoming Radiant Results From [employer] - 01/13/2021 10:06 PM EDT EXAMINATION: CTA [...] steatosis. Mild gastroesophageal wall thickening, correlate clinically. [facility] Work Phone: [facility] Work Phone: Comp Metabolic Profon 2020 (cont.) Normal [facility] Comment on above: Result Comment: Aver age GFR for 50-59 years old: 93 mL/min/1.73sq m Chronic Kidney Disease: <60 mL/min/1.73sq m Kidney failure: <15 mL/min/1.73sq m eGFR calculated using average adult body mass. Additional eGFR calculator available at: http://www.Bandcamp/multiple_crcl_2012.htm Performed By: #### C P, TROPI #### [facility] [address] [place] [address] Balling Machine Operator: Flash Jaramillo MD Albumin [Mass/Vol] 4.3 g/dL Normal 3.5-5.2 [facility] Comment on above: Performed By: #### C P, TROPI #### [facility] [address] [place] [address] Balling Machine Operator: Flash Jaramillo MD Alkaline Phos 165 U/L High 35-104 [facility] Comment on above: Performed By: #### C P, TROPI #### [facility] [address] [phone] Balling Machine Operator: Flash Jaramillo MD ALT [Catalytic activity/Vol] 24 U/L Normal 5-33 [facility] Comment on above: Performed By: #### C P, TROPI #### [facility] [address] [place] [address] Balling Machine Operator: Flash Jaramillo MD Anion gap [Moles/Vol] 10 mmol/L Normal 9-17 [facility] Comment on above: Performed By: #### C P, TROPI #### [facility] [address] [place], [place] [phone] Balling Machine Operator: Flash Jaramillo MD AST [Catalytic activity/Vol] 14 U/L Normal <32 [facility] Comment on above: Performed By: #### C P, TROPI #### [facility] [address] [place] [address] Balling Machine Operator: Flash Jaramillo MD Bilirubin [Mass/Vol] 0.24 mg/dL Low 0.30-1.20 [facility] Comment on above: Performed By: #### C P, TROPI #### [facility] [address] [place] [address] Balling Machine Operator: Flsah Jaramillo MD BUN/CRE Ratio 16 Normal 9-20 [facility] Comment on above: Performed By: #### C P, TROPI #### [facility] [address] [place] [address] Balling Machine Operator: Flash Jaramillo MD Calcium [Mass/Vol] 9.9 mg/dL Normal 8.6-10.4 [facility] Comment on above: Performed By: #### C P, TROPI #### [facility] [address] [place] [address] Balling Machine Operator: Flash Jaramillo MD Chloride [Moles/Vol] 101 mmol/L Normal 98-107 [facility] Comment on above: Performed By: #### C P, TROPI #### [facility] [address] [place], [place] [phone] Balling Machine Operator: Flash Jaramillo MD CO2 [Moles/Vol] 24 mmol/L Normal 20-31 [facility] Comment on above: Performed By: #### C P, TROPI #### [facility] [address] [place] [address] Balling Machine Operator: Flash Jaramillo MD Creatinine [Mass/Vol] 1.04 mg/dL High 0.50-0.90 [facility] Comment on above: Performed By: #### C P, TROPI #### [facility] [address], [place] [phone] Balling Machine Operator: Flash Jaramillo MD GFR, Amer >60 Normal >60 [facility] Comment on above: Performed By: #### C P, TROPI #### [facility] [address] [place] [address] Balling Machine Operator: Flash Jaramillo MD GFR,non Amer 55 mL/min Low >60 [facility] Comment on above: Performed By: #### C P, TROPI #### [facility] [address] [place] [address] Balling Machine Operator: Flash Jaramillo MD Glucose [Mass/Vol] 126 mg/dL High 70-99 [facility] Comment on above: Performed By: #### C P, TROPI #### [facility] [address] [place] [address] Balling Machine Operator: Flash Jaramillo MD Potassium [Moles/Vol] 4.2 mmol/L Normal 3.7-5.3 [facility] Comment on above: Performed By: #### C P, TROPI #### [facility] [address] [place] [address] Balling Machine Operator: Flash Jaramillo MD Protein [Mass/Vol] 7.9 g/dL Normal 6.4-8.3 [facility] Comment on above: Performed By: #### C P, TROPI #### [facility] [address] [place], [place] [phone] Balling Machine Operator: Flash Jaramillo MD Sodium [Moles/Vol] 135 mmol/L Normal 135-144 [facility] Comment on above: Performed By: #### C P, TROPI #### [facility] [address] [place], [place] [phone] Balling Machine Operator: Flash Jaramillo MD Urea nitrogen [Mass/Vol] 17 mg/dL Normal 6-20 [facility] Comment on above: Performed By: #### C P, TROPI #### [facility] [address], [place] [phone] Balling Machine Operator: Flash Jaramillo MD Albumin/Glob Ratio NOT REPORTED Normal 1.0-2.5 [facility] Comment on above: Performed By: #### C P, TROPI #### [facility] [address] [place], [place] [phone] Balling Machine Operator: Flash Jaramillo MD Staging: NOT REPORTED Normal [facility] Comment on above: Performed By: #### C P, TROPI #### [facility] [address] [place], [place] [phone] Balling Machine Operator: Flash Jaramillo MD Comprehensive Metabolic Pane lOrdered By: Tita Edwards on 01-13-2021 Albumin [Mass/Vol] 4.3 g/dL 3.5 - 5.2 g/dL [employer] Phone: Albumin/Globulin Ratio NOT REPORTED [facility] Phone: ALP (Bld) [Catalytic activity/Vol] 165 U/L High 35 - 104 U/L [facility] Phone: ALT [Catalytic activity/Vol] 24 U/L 5 - 33 U/L [facility] Phone: Anion gap [Moles/Vol] 10 mmol/L 9 - 17 mmol/L [facility] Phone: AST [Catalytic activity/Vol] 14 U/L <32 [facility] Phone: Bilirubin [Mass/Vol] 0.24 mg/dL Low 0.30 - 1.20 mg/dL [facility] Phone: Calcium [Mass/Vol] 9.9 mg/dL 8.6 - 10. 4 mg/dL [facility] Phone: Chloride [Moles/Vol] 101 mmol/L 98 - 10 7 mmol/L [facility] Phone: CO2 [Moles/Vol] 24 mmol/L 20 - 31 mmol/L [facility] Phone: Creatinine [Mass/Vol] 1.04 mg/dL High 0.50 - 0.90 mg/dL [facility] Phone: Free PSA/Total PSA [Mass fraction] 7.9 g/dL 6.4 - 8.3 g/dL [facility] Phone: GFR >60 >60 mL/min [facility] Phone: GFR Non- 55 mL/min Low >60 [facility] Phone: GFR/1.73 sq M.predicted MDRD (S/P/Bld) [Vol rate/Area] [facility] Phone: Comment on above: Average GFR for 50-5 9 years old: 93 mL/min/1.73sq m Chronic Kidney Disease: <60 mL/min/1.73sq m Kidney failure: <15 mL/min/1.73sq m eGFR calculated using average adult body mass. Additional eGFR calculator available at: http://www.DailyStrength[employer]/multiple_crcl_2012.htm GFR/1.73 sq M.predicted MDRD (S/P/Bld) [Vol rate/Area] NOT REPORTED [facility] Phone: Glucose [Mass/Vol] 126 mg/dL High 70 - 99 mg/dL [facility] Phone: Interpretation and review of laboratory results Abnormal [facility] Phone: Potassium [Moles/Vol] 4.2 mmol/L 3.7 - 5.3 mmol/L [facility] Phone: Sodium [Moles/Vol] 135 mmol/L 135 - 144 mmol/L [facility] Phone: Urea nitrogen (BldV) [Mass/Vol] 17 mg/dL 6 - 20 mg/dL [facility] Phone: Urea nitrogen/Creatinine (Bld) [Mass ratio] 16 [facility] Phone: [facility] Phone: D-Dimer Teston 01-13-2021 D-Dimer Test 0.88 mg/L FEU High 0.00-0.59 [facility] Comment on above: Result Comment: When [...] DVT. Performed By: #### D JOSE A, DRE, REJEC #### [facility] [address] [place] [address] Balling Machine Operator: Flash Jaramillo MD D-Dimer, QuantitativeOrdered By: Tita Edwards on 01-13-2021 D-Dimer, Quant 0.88 [facility] [employer] Work Phone: Comment on above: When combined [...] Interpretation and review of laboratory results Abnormal [facility] Phone: [facility] Phone: SPECIMEN REJECTIONOrdered By : Tita Edwards on 01-13-2021 - NOT REPORTED [facility] Phone: Ordered Test CP TROP [facility] Phone: Reason for Rejection Unable to perform testing: Specimen hemolyzed. [facility] Phone: Specimen source Nom (Unsp spec) BLOOD IV START [facility] Phone: [facility] Phone: Specimen Rejectionon 021 Reason for rejection Unable to perform testing: Specimen hemolyzed. [facility] Comment on above: Performed By: #### D DRE NARANJO, REJEC #### [facility] [address] [place], [place] [phone] Balling Machine Operator: Flash Jaramillo MD Source of sample BLOOD IV START [facility] Comment on above: Performed By: #### D DRE NARANJO, REJEC #### [facility] [address], [place] [phone] Balling Machine Operator: Flash Jaramillo MD Test ordered CP [facility] Comment on above: Performed By: #### D DRE NARANJO, REJEC #### [facility] [address], [place] [phone] Balling Machine Operator: Flash Jaramillo MD ----- NOT REPORTED [facility] Comment on above: Performed By: #### D DRE NARANJO, REJEC #### [facility] [address], [place] [phone] Balling Machine Operator: Flash Jaramillo MD Troponinon 01-13-2021 Troponin, High Sens <6 Normal 0-14 [facility] Comment on above: Result Comment: High Sensitivity Troponin values cannot be compared with other Troponin methodologies. Patients with high levels of Biotin oral intake (i.e >5mg/day) may have falsely decreased Troponin levels. Samples collected within 8 hours of biotin intake may require additional information for diagnosis. Performed By: #### T ROPI #### [facility] [address], [place] [phone] Balling Machine Operator: Flash Jaramillo MD Troponin Interp. NOT REPORTED [facility] Comment on above: Performed By: #### T ROPI #### [facility] [address], [place] [phone] Balling Machine Operator: Flash Jaramillo MD Troponin T NOT REPORTED Normal <0.03 [facility] Comment on above: Performed By: #### T ROPI #### [facility] [address], [place] [phone] Balling Machine Operator: Flash Jaramillo MD Troponin, High Sens <6 Normal 0-14 [facility] Comment on above: Result Comment: High Sensitivity Troponin values cannot be compared with other Troponin methodologies. Patients with high levels of Biotin oral intake (i.e >5mg/day) may have falsely decreased Troponin levels. Samples collected within 8 hours of biotin intake may require additional information for diagnosis. Performed By: #### C P, TROPI #### [facility] [address], [place] [phone] Balling Machine Operator: Flash Jaramillo MD Troponin Interp. NOT REPORTED Normal [facility] Comment on above: Performed By: #### C P, TROPI #### [facility] [address], [place] [phone] Balling Machine Operator: Flash Jaramillo MD Troponin T NOT REPORTED Normal <0.03 [facility] Comment on above: Performed By: #### C P, TROPI #### [facility] [address], [place] [phone] Balling Machine Operator: Flash Jaramillo MD TroponinOrdered By: Tita Edwards on 01-13-2021 Troponin Interp NOT REPORTED [facility] Work Phone: Troponin T NOT REPORTED <0.03 ng/mL [facility] Work Phone: Troponin, High Sensitivity <6 0 - 14 ng/L [facility] Work Phone: Comment on above: High Sensitivity Troponin values cannot be compared with other Troponin methodologies. Patients with high levels of Biotin oral intake (i.e >5mg/day) may have falsely decreased Troponin levels. Samples collected within 8 hours of biotin intake may require additional information for diagnosis. [facility] Work Phone: Troponin Interp NOT REPORTED [facility] Work Phone: Troponin T NOT REPORTED <0.03 ng/mL [facility] [place] Work Phone: Troponin, High Sensitivity <6 0 - 14 ng/L [facility] Phone: Comment on above: High Sensitivity Troponin values cannot be compared with other Troponin methodologies. Patients with high levels of Biotin oral intake (i.e >5mg/day) may have falsely decreased Troponin levels. Samples collected within 8 hours of biotin intake may require additional information for diagnosis. [facility] Phone: XR CHEST PORTABLEon 01-14-20 XR CHEST [...] Sarbjit Ramirez MD 01/13/21 Final result Normal [facility] XR CHEST PORTABLEOrdered By: Tita Edwards on 01-13-2021 No focal consolidation, pneumothorax or pleural effusion. [facility] Phone: EXAM: XR CHEST PORTABLE HISTORY: Shortness of breath, chest pain. COMPARISON: None. TECHNIQUE: AP radiograph of the chest was performed. FINDINGS: No focal consolidation, pneumothorax or pleural effusion. There is mild elevation of the right hemidiaphragm. The cardiomediastinal silhouette is unremarkable. There are degenerative changes of the spine. [facility] Phone: [place], [facility] Incoming Radiant Results From [employer] - 01/13/2021 8:24 PM EDT EXAM: XR CHEST PORTABLE HISTORY: Shortness of breath, chest pain. COMPARISON: None. TECHNIQUE: AP radiograph of the chest was performed. FINDINGS: No focal consolidation, pneumothorax or pleural effusion. There is mild elevation of the right hemidiaphragm. The cardiomediastinal silhouette is unremarkable. There are degenerative changes of the spine. IMPRESSION: No focal consolidation, pneumothorax or pleural effusion. [email or web address] Work Phone: [email or web address] Work Phone: Vital Signs Date Time Vital Sign Value Performing Clinician Facility 06-16-2023 10:00-0500 Body height 157.48 cm Samra Shamika Other [facility] Other 06-16-2023 10:00-0500 Body mass index (BMI) [Ratio] 35.52 kg/m2 Samra Shamika Other [facility] Other 06-16-2023 10:00-0500 Body temperature 98 [degF] Samra Shamika Other [facility] Other 06-16-2023 10:00-0500 Body weight 88.09 kg Samra Yehmond Other [facility] Other 06-16-2023 10:00-0500 Diastolic blood pressure 80 mm[Hg] Samra Yehmond Other [facility] Other 06-16-2023 10:00-0500 Respiratory rate 18 /min Samra Shamika Other [facility] Other 06-16-2023 10:00-0500 SaO2% (BldA) [Mass fraction] 95 % Samra Shamika Other [facility] Other 06-16-2023 10:00-0500 Systolic blood pressure 132 mm[Hg] Samra Shamika Other [facility] Other 09-20-2022 11:45-0500 Body height 157.48 cm Siobhan Meyers Other [facility] Other 09-20-2022 11:45-0500 Body mass index (BMI) [Ratio] 34.93 kg/m2 Siobhan Meyers Other [facility] Other 09-20-2022 11:45-0500 Body temperature 98.3 [degF] Siobhan Meyers Other [facility] Other 09-20-2022 11:45-0500 Body weight 86.64 kg Siobhan Meyers Other [facility] Other 09-20-2022 11:45-0500 Respiratory rate 18 /min Siobhan Meyers Other [facility] Other 09-20-2022 11:45-0500 SaO2% (BldA) [Mass fraction] 98 % Siobhan Meyers Other [facility] Other 06-30-2022 18:35-0500 Body height 157.48 cm Cassandra Dumont Other [facility] Other 06-30-2022 18:35-0500 Body mass index (BMI) [Ratio] 34.56 kg/m2 Cassandra Dumont Other [facility] Other 06-30-2022 18:35-0500 Body temperature 97.7 [degF] Cassandra Dumont Other [facility] Other 06-30-2022 18:35-0500 Body weight 85.73 kg Cassandra Dumont Other [facility] Other 06-30-2022 18:35-0500 Diastolic blood pressure 72 mm[Hg] Cassandra Tim Other [facility] Other 06-30-2022 18:35-0500 Respiratory rate 18 /min Cassandra Tim Other [facility] Other 06-30-2022 18:35-0500 SaO2% (BldA) [Mass fraction] 98 % Cassandra Dumont Other [facility] Other 06-30-2022 18:35-0500 Systolic blood pressure 126 mm[Hg] Cassandra Dumont Other [facility] Other 12-18-2021 16:55-0400 Body height 157.48 cm Siobhan Gonzalezault Other [facility] Other 12-18-2021 16:55-0400 Body mass index (BMI) [Ratio] 32.92 kg/m2 Siobhan Gonzalezault Other [facility] Other 12-18-2021 16:55-0400 Body temperature 98.9 [degF] Siobhan Luigi Other [facility] Other 12-18-2021 16:55-0400 Body weight 81.65 kg Siobhan Luigi Other [facility] Other 12-18-2021 16:55-0400 Respiratory rate 16 /min Siobhan Luigi Other [facility] Other 12-18-2021 16:55-0400 SaO2% (BldA) [Mass fraction] 95 % Siobhan Luigi Other [facility] Other 01-13-2021 22:34-0400 Diastolic blood pressure 80 mm[Hg] Tita Edwards MD Work Phone: [email or web address] Work Phone: 01-13-2021 22:34-0400 Heart rate 78 /min Tita Edwards MD Work Phone: [email or web address] Work Phone: 01-13-2021 22:34-0400 Respiratory rate 17 /min Tita Edwards MD Work Phone: [email or web address] Work Phone: 01-13-2021 22:34-0400 Systolic blood pressure 134 mm[Hg] Tita Edwards MD Work Phone: [email or web address] Work Phone: 01-13-2021 19:33-0400 Body temperature 98.01 [degF] Tita Edwards MD Work Phone: [email or web address] Work Phone: 01-13-2021 19:33-0400 Body weight 79.38 kg Tita Edwards MD Work Phone: [email or web address] Work Phone: 01-13-2021 19:33-0400 SaO2% (BldA) [Mass fraction] 99 % Tita Edwards MD Work Phone: [email or web address] Work Phone: Encounters Encounter Date Encounter Type Care Provider Facility Start: 11-18-2023 End: 11-18-2023 ambulatory CHRIS Steele FELTER Not Available Start: 10-22-2023 End: 10-22-2023 ambulatory UNKNOWN PROVIDER Facility:[facility] Start: 10-01-2023 End: 10-01-2023 ambulatory CHRIS FELTER Not Available Start: 09-15-2023 End: 09-16-2023 ambulatory UNKNOWN PROVIDER Facility:[facility] Start: 09-10-2023 End: 09-10-2023 ambulatory [facility] Start: 07-30-2023 End: 07-30-2023 ambulatory [facility] Start: 06-29-2023 End: 06-29-2023 ambulatory CHRIS DHILLON Not Available Start: 06-16-2023 End: 06-16-2023 ambulatory Samra Wick Other [facility] Other Start: 06-16-2023 Office outpatient vi sit 15 minutes Samra Shamika [facility] Start: 05-23-2023 Letter encounter Marisol canorosemary Start: 01-05-2023 End: 01-05-2023 ambulatory [facility] Start: 12-09-2022 End: 12-09-2022 ambulatory [facility] Start: 10-30-2022 End: 10-30-2022 ambulatory [facility] Start: 10-12-2022 End: 10-13-[address] ROMAIN CAN Facility: Start: 09-20-2022 End: 09-20-2022 ambulatory Siobhan Meyers Other [facility] Other Start: 09-20-2022 Office outpatient vi sit 15 minutes Siobhan Meyers [facility] Start: 06-30-2022 End: 06-30-2022 ambulatory Cassandra Dumont Other [facility] Other Start: 06-30-2022 Office outpatient vi sit 25 minutes Cassandra Dumont [facility] Start: 12-18-2021 End: 12-18-2021 ambulatory Siobhan Meyers Other [facility] Other Start: 12-18-2021 Office outpatient vi sit 25 minutes Siobhanjuan m Meyers [facility] Start: 07-30-2021 End: 10-29-2021 Patient encounter procedure MORALES ANGULO [facility] Start: 01-13-2021 End: 01-14-2021 Emergency department patient visit TITA EDWARDS [facility] Start: 01-13-2021 End: 01-13-2021 Emergency department patient visit Tita Edwards MD Work Phone: [facility] ED Comment on above: Chest pain, unspecif ied type (Primary Dx); Anxiety state Procedures Date Procedure Procedure Detail Performing Clinician Start: 12-09-2022 Follow-up visit Follow-up TERESSA OLIVEROS Start: 01-13-2021 Ct angiography chest w/contrast/noncontrast Tita Edwards MD Work Phone: Start: 01-13-2021 Assay of troponin quantitative Tita Edwards MD Work Phone: Start: 01-13-2021 Radiologic exam ches t single view Tita Edwards MD Work Phone: Start: 01-13-2021 End: 01-13-2021 Comprehensive metabolic panel Tita Edwards MD Work Phone: Start: 01-13-2021 SPECIMEN REJECTION Brown Edwards MD Work Phone: Start: 01-13-2021 Ecg routine ecg w/le ast 12 lds w/i&r Tita Edwards MD Work Phone: Plan of Treatment Date Care Activity Detail Author Start: 07-16-2030 DTaP/Tdap/Td vaccine (2 - Td or Tdap) DTaP/Tdap/Td vaccine (2 - Td or Tdap) [facility] Work Phone: Start: 09-15-2023 End: 09-15-2023 Patient encounter procedure 09/15/2023 10:50 AM EST Procedure Visit [facility] [address] [place] [address] Pasquale Rosa, DDS [address] [place] [address] [facility] Start: 2023 RSV vaccine (optional 60+ years) RSV vaccine (optional 60+ years) [facility] Start: 03-26-2023 Influenza vaccination Influenza Vaccine (#1) [facility] Start: 03-26-2021 Influenza vaccination Flu vaccine (Season Ended) [facility] Phone: Start: 2013 Screening for malignant neoplasm of breast Breast cancer screen [facility] Phone: Start: 2013 Screening for malignant neoplasm of colon Colon cancer screen colonoscopy [facility] Phone: Start: 2013 Shingles (RZV) Vaccine (1 of 2) Shingles (RZV) Vaccine (1 of 2) [facility] Start: 2013 Shingles Vaccine (1 of 2) Shingles Vaccine (1 of 2) [facility] Phone: Start: 2008 Cholesterol [Mass/volume] in Serum or Plasma Cholesterol [facility] Start: 2008 Screening for malignant neoplasm of colon [facility] Start: 2003 Lipid panel Lipid screen [facility] Phone: Start: 2003 Screening for malignant neoplasm of breast Mammography [facility] Start: 1984 Screening for malignant neoplasm of cervix [facility] Start: 1982 Tetanus vaccination Tetanus (Td or Tdap) Booster [facility] Start: 1981 Hepatitis C screening Hepatitis C Antibody [facility] Start: 1981 Tetanus + diphtheria + acellular pertussis vaccine (product) Tdap Booster [facility] Start: 1978 HIV screening [facility] Start: 1975 COVID-19 Vaccine (1) COVID-19 Vaccine (1) [facility] Phone: Start: 1963 COVID-19 Vaccine (#1) COVID-19 Vaccine (#1) [facility] Start: 1963 Hepatitis C screening Hepatitis C screen [facility] Phone: Start: 1963 Screening for malignant neoplasm of colon Colonoscopy [place] EKG 12 Lead EKG 12 Lead ECG Routine 01/13/2021 7:37 PM EDT [facility] Phone: Payers Date Payer Category Payer Unknown SP/UNINSURED PEN [employer] EVALUATION 2023-Present Other [id number] 2020 Medicaid [id number] 1963 Unknown [id number] 1963 Unknown [id number] 1963 Unknown [id number] 1963 Unknown [id number] 1963 Unknown [id number] 1963 Unknown [id number] 1963 Unknown [id number] 1959 Medicaid [id number] Social History Date Type Detail Facility Start: 01-13-2021 Tobacco smoking stat [facility] Never smoker [facility] Phone: Start: 01-13-2021 Tobacco use and exposure Never used [facility] Start: 01-13-2021 Alcohol intake Lifetime non-d melchor (finding) [email or web address] Work Phone: Start: 01-13-2021 History SDOH Alcohol Frequency 1 [facility] Phone: Start: 01-13-2021 Alcohol Comment occasional [employer] [facility] Work Phone: Start: 1965 Sex Assigned At Not on file M [facility] Work Phone: Exposure to SARS-CoV -2 (event) Not sure [email or web address] Sex Assigned At Female [facility] Tobacco smoking stat [facility] Tobacco smoking consumption unknown [facility] Clinical Notes 12-18-2021 to 09-10-2023 Note Date & Type Note Facility 09-10-2023 Note Patient here for [facility] low up 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 Still gets intermittent skips . Denies chest pain, SOB, and lightheadedness/syncope. Review of Systems Cardiovascular: Positive for irregular heartbeat and palpitations. All other systems reviewed and are negative. [facility] 09-10-2023 Note Cardiovascular Medic [facility] SUBJECTIVE Sandro Severino is a 58 y.o. female who is seen for palpitations, here for follow-up. HPI PMHx: DM type II, HTN, HLD, fatty liver disease Patient is doing well. She denies any cardiac complaints or concerns. She denies any chest pain. She denies any shortness of breath. She denies any lower extremity edema, orthopnea, or paroxysmal nocturnal dyspnea. She reports rare palpitations, for which she recently had a 30-day 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 There were no sustained arrhythmias on monitor. She is pleased with how she is doing from a cardiac standpoint. Blood pressure is much better controlled. 01/05/2023 After last visit we had increased [...] without heart failure 12/09/2022 Diabetes mellitus (CMS/HCC) Family History Problem Relation Name Age of Onset No Known Problems Mother No Known Problems Father No Known Problems Sister No Known Problems Brother Social History Tobacco Use Smoking status: Never Smokeless tobacco: Former Substance Use Topics Alcohol use: Yes Alcohol/week: 1.0 standard drink of alcohol Types: 1 Cans of beer per week Drug use: Never No Known Allergies ROS Constitutional: Positive for malaise/fatigue. Musculoskeletal: Positive for arthritis and back pain. Neurological: Positive for headaches. All other systems reviewed and are negative. OBJECTIVE Visit Vitals BP 122/72 (BP Location: Right arm, Patient Position: Sitting) Pulse 65 Ht 1.575 m (5' 2 ) Wt 86.6 kg (191 lb) SpO2 97% BMI 34.93 kg/m??? Smoking Status Never BSA 1.95 m??? Medications: Current Outpatient Medications: aspirin 81 mg chewable tablet, Chew 81 mg in the morning., Disp: , Rfl: carvedilol (Coreg) 12.5 mg tablet, Take 1 tablet (12.5 mg) by mouth with breakfast and with evening meal., Disp: 180 tablet, Rfl: 3 DULoxetine (Cymbalta) [address] capsule, Take 20 mg by mouth in the morning. Do not crush or chew., Disp: , Rfl: SITagliptin phosphate (Januvia) 25 mg tablet, Take 25 mg by mouth in the morning., Disp: , Rfl: Physical Exam Vitals reviewed. [...] Right lower leg: No edema. Left lower l (more content not included)... [facility] 07-30-2023 Note Cardiovascular Medic [facility] SUBJECTIVE Sandro Severino is a 58 y.o. female who is seen for palpitations, here for follow-up. HPI PMHx: DM type II, HTN, HLD, fatty liver disease Overall, patient states that she is doing better. Palpitations have significantly improved. She has not any recurrent chest pain. She has been able to go to work. Occasionally, she feels overwhelmed at work and needs to go home. However, this is not happening frequently. She denies any near-syncope or syncope. She denies any lower extreme edema, orthopnea, paroxysmal nocturnal dyspnea. 01/05/2023 After last visit we had increased [...] Alcohol use: Yes Alcohol/week: 1.0 standard drink of alcohol Types: 1 Cans of beer per week Drug use: Never No Known Allergies ROS Constitutional: Positive for malaise/fatigue. Musculoskeletal: Positive for arthritis and back pain. Neurological: Positive for headaches. All other systems reviewed and are negative. OBJECTIVE Visit Vitals BP 136/84 Pulse 71 Ht 1.575 m (5' 2 ) Wt 88 kg (194 lb) SpO2 95% BMI 35.48 kg/m??? Smoking Status Never BSA 1.96 m??? Medications: Current Outpatient Medications: aspirin 81 mg chewable tablet, Chew 81 mg in the morning., Disp: , Rfl: carvedilol (Coreg) 12.5 mg tablet, Take 1 tablet (12.5 mg) by mouth with breakfast and with evening meal., Disp: 180 tablet, Rfl: 3 DULoxetine (Cymbalta) [address] capsule, Take 20 mg by mouth in the morning. Do not crush or chew., Disp: , Rfl: SITagliptin phosphate (Januvia) 25 mg tablet, Take 25 mg by mouth in the morning., Disp: , Rfl: Physical Exam Vitals reviewed. [...] Mood and Affect: Mood normal. Behavior: Behavior anna (more content not included)... [facility] 07-30-2023 Note Review of Systems Cardiovascular: Positive for palpitations. Palpitaions every now and then pt feels well Pt also started jansegun and vianeyoljudy [facility] 06-16-2023 Evaluation note Encounter Date Diagnosis Assessment [...] no improvement in 2 to 3 days [facility] Other 06-13-2023 NotePatient here for 1 mo follow up hypertension and hyperlipidemia. Had routine labs last week. Carvedilol was increased to 12.5mg bid about 2 weeks ago. She says dizziness/lightheadedness has resolved and she's feeling better. Denies chest pain and SOB. Review of Systems Constitutional: Positive for malaise/fatigue. Musculoskeletal: Positive for arthritis and back pain. Neurological: Positive for headaches. All other systems reviewed and are negative.[facility] 01-05-2023 NoteCardiovascular Medicine [facility] SUBJECTIVE Chief Complaint Patient presents with [...] hgbA1c - 8.4 Testing/Pr (more content not included)...[facility] 12-25-2022 NoteCOREG 12.5[facility]05[facility] Note Cardiovascular Medicine [facility] SUBJECTIVE Chief Complaint Patient presents with [...] home. She c/o feeli (more content not included)...[facility] 12-09-2022 NotePatient is here today for a 1 month follow up. Review of Systems Constitutional: Positive for decreased appetite and weight loss. Musculoskeletal: Positive for arthritis and back pain. Neurological: Positive for dizziness, headaches and loss of balance. All other systems reviewed and are negative.[facility] 10-30-2022 NoteCardiology Clinic Note Chief Complaint: [...] a past medical history of Diabetes mellitus ([facility]). Surgical History She has a past surgical [...] as needed Pacheco Burns MD Interventional Cardiology [facility]04-07-2023 NoteReview of Systems Cardiovascular: Positive for chest pain. Neurological: Positive for headaches. All other systems reviewed and are negative.[facility] 10-12-2022 NoteCARDIAC STRESS TEST Requesting Physician: Procedure Date:10/13/2022 [...] seen. EKG portion is negative for ischemia.[id number] Evaluation note* Encounter Date Diagnosis Assessment Notes [...] care provider if no improvement of symptoms [facility] Other 12-06-2022 Evaluation note* Encounter Date Diagnosis [...] other viral communicable diseases (ICD-10 - Z20.828) [facility] Other 05-26-2022 Evaluation note* Encounter Date Diagnosis Assessment Notes Treatment Notes Treatment Clinical Notes November, Cough (ICD-10 - R05.9) November, COVID-19 (ICD-10 - U07.1) Today you tested positive for the COVID virus. This mean you need to follow all CDC quarantine guidelines found at [email or web address] v. It is important to rest, increase [...] UP AND WHEN TO SEEK EMERGENCY TREATMENT [facility] Other Evaluation + Plan note No data available for this section [facility] Chest pain, unspecified type- Primary Anxiety state Anxiety state, unspecified documented in this encounter [facility] Phone: History general Narrative - Reported* Type Description Date Medical History Anxiety Medical History HTN (hypertension) Surgical History ablasion uterine [facility] Other History general Narrative - Reported* Type Description Date Medical History Anxiety Medical History HTN (hypertension) Surgical History ablasion uterine Hospitalization History Kidney Infection 1994 Hospitalization History chest pain 2022 [employer] [facility] Other Hospital Discharge instructions* Attachments The following attachments cannot be sent through Care Everywhere. * Chest Pain ([place] Citizen) * Anxiety Disorder ([place] Citizen) [facility] Work Phone: Hospital Discharge instructions No data available for this section [facility] Summary Purpose Family History No Family [...] DATE CREATED AUTHOR AUTHOR'S ORGANIZ ATION 02/11/2022 [facility] DATE CREATED AUTHOR AUTHOR'S ORGANIZ ATION 10/15/2022 [facility] DATE CREATED AUTHOR AUTHOR'S ORGANIZ ATION 09/12/2023 [facility] DATE CREATED AUTHOR AUTHOR'S ORGANIZ ATION 10/29/2023 [facility] [employer] [facility] DATE CREATED AUTHOR AUTHOR'S ORGANIZ ATION 11/20/2023 [facility] EPIC FOR RECORDS PERTAINING TO PATIENTS [...] BE BASED ON THE PRIMARY CLINICAL RECORDS. [facility] [employer] [facility]. provides no warranty or guarantee of the accuracy or completeness of information in this document.
[2023-11-29 10:42] LABS: Hematocrit 42.2 % (36.0-48.0); Hemoglobin 13.8 g/dL (12.0-16.0); Mean Corpuscular HGB Conc 32.7 g/dL (29.9-35.2); Mean Corpuscular Hemoglobin 30.1 pg (26.7-34.0); Mean Corpuscular Volume 91.9 fL (81.0-99.0); Mean Platelet Volume 10.8 fL (9.5-13.5); Platelet Count 273 10^3/uL (150-450); Red Blood Count 4.59 10^6/uL (4.20-5.40); Red Cell Distribution Width 12.8 % (11.0-15.0); White Blood Count 7.6 10^3/uL (4.0-11.0)
[2023-11-29 11:09] LABS: Estimated Average Glucose 174 mg/dL; Glycohemoglobin A1C 7.7 % (4.5-6.2)
[2023-11-29 11:12] LABS: Alanine Aminotransferase 115 U/L (14-59); Albumin Globulin Ratio 0.8; Albumin Level 3.3 g/dL (3.4-5.0); Alkaline Phosphatase 173 U/L (46-116); Aspartate Amino Transferase 35 U/L (15-37); BUN Creatinine Ratio 15.8; Bilirubin Total 0.4 mg/dL (0.2-1.0); Calcium 9.3 mg/dL (8.5-10.1); Carbon Dioxide 27.9 mmol/L (21.0-32.0); Chloride 102 mmol/L (98-107); Chol HDL Ratio 3.4; Cholesterol 179 mg/dL (<=200); Estimated GFR (African America >60 (>=60); Estimated GFR (Non-African Ame >60 (>=60); Glucose 149 mg/dL (74-106); HDL Cholesterol 53 mg/dL (40-60); Potassium 3.9 mmol/L (3.5-5.1); Sodium 139 mmol/L (136-145); Total Protein 7.3 g/dL (6.4-8.2); Triglycerides 171 mg/dL (<=150); VLDL CHOLESTEROL 34.2 mg/dL
[2023-11-29 11:16] LABS: Microalbumin Urine Random 1.6 mg/dL (<=30.0)
== END 2023-11-29 09:21 | disposition home or self-care (01) ==
LOC: LAB 09:24
PROVIDERS: PCP Nurse Practitioner; Visit Provider Nurse Practitioner
DX: E11.9 Type 2 diabetes mellitus without complications (principal)
CPT/HCPCS: 36415; 80053; 80061; 82043; 83036; 85027

== ENCOUNTER 2023-12-15 07:22 | Outpatient (OUT) | payer OTHER, SELFPAY ==
--- OUTSIDE RECORDS SUMMARY | 2023-12-15 07:25 | XMS_ITS | CCD ---
Author Organization [facility] Care Team Providers Care Film Sound Engineer Name Role Phone Unavailable Primary Care Provider UnavailTITA Keenan Attending Unavailable MORALES ANGULO Primary Care Physician [phone] Siobhan Meyers Unavailable Cassandra Dumont Unavailable DR ROMAIN CAN Consulting Unavailabl e ROSE MARIE ., FELIBERTO Attending Unavailable REQUEST, DR ESQUEDA LISTED Primary Care Unavaila ble ROSE MARIE ., FELIBERTO Admitting Unavailable DR DELL WINN Consulting Unavailable TERESSA OLIVEROS Consulting Unavailable ROSE MARIE ., FELIBERTO Consulting Unavailable Unavailable Primary Care Provider UnavailSamra Sexton Unavailable TERESSA OLIVERSO Attending Unavailable PACHECO BURNS Attending Unavailable PACHECO [...] / neomycin 3.5 mg/ml / polymyxin b 04186 unt/ml otic solution (1 source) Aminoglycoside Antibacterial, Polymyxin-class Antibacterial, Corticosteroid Start: 09-20-19 [id number]-OM [id number] 4 drops into affected ear Otic Three [...] SITagliptin (1 source) Dipeptidyl Peptidase 4 Inhibitor Mauriceuvia Active Completed/Discontinued Medications Medication Drug Class(es) Dates [...] Nausea Episodic Other aftercare (1 source) Other ad terminal makeup operator (current) drug therapy; Translations: [OTH PESTICIDE USE MEDICAL COORDINATOR CURRENT DRUG THERAPY] Onset: 10-15-2022 Episodic Other [...] Interpretation Reference Range Facility Progress Noteson 10-22-2023 Sand Control Worker Authentication Interface Message Text ----- Sunday, October 22, 2023 at 12:00:23 PM ----- ----- Provider: Edgardo Mac Hygienist -- Clinic: [place] ----- [facility], Pt is ready for tx. Pt is [...] BRET see chart RECALL/ 6months. Amina Gann [facility] Normal [facility] [email or web address] [facility] Progress Noteson 09-15-2023 Sand Control Worker Authentication Interface Message Text ----- Friday, September 15, 2023 at 11:18:51 AM ----- ----- Provider: [id number] - Resident Dayday -- Clinic: [place] ----- INITIAL/COMPREHENSIV E EXAM Patient presents for [...] 2023 at 11:23:03 AM ----- ----- Provider: [id number] - Pasquale Martin DDS -- Clinic: [place] ----- Normal [email or web address] Office Visiton 09-10-2023 Follow-up visit [id number] Sandro Severino 1965 F Date Provider Department Center 09/10/2023 [id number] BURNS Family History Problem Relation Age of Onset No Known Problems Mother No Known Problems Father No Known Problems Sister No Known Problems Brother Family Status - Relation Status Age at Mother Father Sister Brother Level of Service:79259 [place] OFFICE/OUTPATIENT ESTABLISHED LOW MDM 20 MIN Normal [facility] Office Visiton 01-05-2024 Follow-up visit [id number] Sandro Severino 1965 F Date Provider Department Center 07/30/2023 384PACHECO PHILLIPS [facility] No family history on file Level of Service:87192 [place] OFFICE/OUTPATIENT ESTABLISHED LOW MDM 20 MIN [facility] COVID/FLU RT-PCRon SARS-CoV-2 (COVID-19) RNA RIDGE+probe Ql (Unsp spec) Negative [facility] Other COVID/FLU RT-PCR Negative [employer] Other Office Visiton 01-05-2023 Follow-up visit [id number] Sandro Severino 1965 Date Provider Department Center 01/05/2023 TERESSA SOLOMON Hos No family history on file Level of Service:20373 [place] OFFICE/OUTPATIENT ESTABLISHED LOW MDM 20-29 MIN Reason for Visit and Comments: Hypertension [348765] Normal [facility] 36on 12-24-2022 36 Her BP is more often running above goal. Would like to see her average BP running <130/90. We can either have her resume her losartan/hydrochloro thiazide or we can increase her carvedilol to 12.5mg BID. Normal [facility] Office Visiton 12-09-2022 Follow-up visit [id number] Sandro Severino 1965 Date Provider Department Center 12/09/2022 TERESSA SOLOMON Hos No family history on file Level of Service:35976 [place] OFFICE/OUTPATIENT ESTABLISHED MOD MDM 30-39 MIN Reason for Visit and Comments: Follow-up [245262] - 1 mo. Follow up [facility] Office Visiton 10-30-2022 Follow-up visit [id number] Sandro Severino 1965 F Date Provider Department Center 10/30/2022 PACHECO GUILLORY Hos No family history on file Level of Service:57843 [place] OFFICE/OUTPATIENT ESTABLISHED MOD MDM 30-39 MIN Reason for Visit and Comments: Chest Pain [930429] - f/u tbh hypertension chest pain pt states last night she was having some chest pain and headache last night Normal [facility] CBC AUTO DIFFon 10-13-2022 BASO # 0.1 103/ul Normal 0.0-0.1 [facility] Comment on above: Performed By: #### P OCGLUC #### [facility] [address] [address] [address] Gibson Jin Basophils/100 WBC (Bld) 1.0 % Normal 0.2-2.0 [facility] Comment on above: Performed By: #### P OCGLUC #### [facility] [address] [address] [address] Gibson Jin EO # 0.2 103/ul Normal 0.0-0.7 [facility] Comment on above: Performed By: #### P OCGLUC #### [facility] [address] [address] [address] Gibson Jin Eosinophils/100 WBC (Bld) 3.9 % Normal 0.9-7.0 [facility] Comment on above: Performed By: #### P OCGLUC #### [facility] [address] [address] [address] Gibson Jin Erythrocyte distribution width (RBC) [Ratio] 12.4 % Normal 11.0-15.0 [facility] Comment on above: Performed By: #### P OCGLUC #### [facility] [address] [address] [address] Gibson Jin Hematocrit (Bld) [Volume fraction] 43.4 % Normal 36.0-48.0 [facility] Comment on above: Performed By: #### P OCGLUC #### [facility] [address] [address] [address] Gibson Jin Hemoglobin (Bld) [Mass/Vol] 14.7 g/dL Normal 12.0-16.0 [facility] Comment on above: Performed By: #### P OCGLUC #### [facility] [address] [address] [address] Gibson Jin IG # 0.09 10e3/ul Critically high 0.00-0.03 [facility] Comment on above: Performed By: #### P OCGLUC #### [facility] [address] [address] [address] Gibson Jin IG % 1.5 % Critically high 0.0-0.5 [facility] Comment on above: Performed By: #### P OCGLUC #### [facility] [address] [address] [address] Gibson Jin LYMPH # 1.2 103/ul Normal 1.2-3.8 [facility] Comment on above: Performed By: #### P OCGLUC #### [facility] [address] [address] [address] Gibson Jin Lymphocytes/100 WBC (Bld) 19.4 % Critically low 20.5-60.0 [facility] Comment on above: Performed By: #### P OCGLUC #### [facility] [address] [address] [address] Gibson Jin MANUAL DIFF REQ NO Normal [facility] Comment on above: Performed By: #### P OCGLUC #### [facility] [address] [address] [address] Gibson Jin MCH (RBC) [Entitic mass] 30.2 pg Normal 26.7-34.0 [facility] Comment on above: Performed By: #### P OCGLUC #### [facility] [address] [address] [address] Gibson Jin MCHC (RBC) [Mass/Vol] 33.9 g/dL Normal 29.9-35.2 [facility] Comment on above: Performed By: #### P OCGLUC #### [facility] [address] [address] [address] Gibson Jin MCV (RBC) [Entitic vol] 89.1 fL Normal 81.0-99.0 [facility] Comment on above: Performed By: #### P OCGLUC #### [facility] [address] [address] [address] Gibson Jin MONO # 0.4 103/ul Normal 0.3-0.8 [facility] Comment on above: Performed By: #### P OCGLUC #### [facility] [address] [address] [address] Gibson Jin Monocytes/100 WBC (Bld) 6.9 % Normal 1.7-12.0 [facility] Comment on above: Performed By: #### P OCGLUC #### [facility] [address] [address] [address] Gibson Jin NEUT # 4.1 103/ul Normal 1.4-6.5 [facility] Comment on above: Performed By: #### P OCGLUC #### [facility] [address] [address] [address] Gibson Jin Neutrophils/100 WBC (Bld) 67.3 % Normal 43.0-75.0 [facility] Comment on above: Performed By: #### P OCGLUC #### [facility] [address] [place] [address] Dr. Gibson Jin Platelet mean volume (Bld) [Entitic vol] 10.3 fL Normal 9.5-13.5 [facility] Comment on above: Performed By: #### P OCGLUC #### [facility] [address] [address] [address] Gibson Jin PLT 273 103/ul Normal 150-450 [facility] Comment on above: Performed By: #### P OCGLUC #### [facility] [address] [address] [address] Gibson Jin RBC 4.87 106/ul Normal 4.20-5.40 [facility] Comment on above: Performed By: #### P OCGLUC #### [facility] [address] [place] [address] Dr. Gibson Jin WBC 6.1 103/ul Normal 4.0-11.0 [facility] Comment on above: Performed By: #### P OCGLUC #### [facility] [address] [place] [address] Dr. Gibson Jin ECHOCARDIO M/2D COMPLETEon 0 10-13-2022 ECHOCARDIO M/2D COMPLETE Patient: SANDRO SEVERINO Exam Date: 10/13/2022 : 1965 Gender:F Ordering : FELIBERTO TROTTER . Admission #: [id number] Family : Order #: [id number] CLICK HERE TO VIEW EXAM ECHOCARDIOGRAM REPORT [...] Mosquera M.D. on 10/13/2022 at 15:43 Normal [facility] GLYCOHEMOGLOBIN A1Con 2022 ADA RECOMMENDATION SEE BELOW Normal [facility] Comment on above: Result Comment: ADA RECOMMENDED LIMIT 4.0 - 6.0 ADA THERAPEUTIC TARGET < 7.0 ACTION SUGGESTED > 7.0 Performed By: #### A 1C #### [facility] [address] [place] [address] Dr. Gibson Jin Glucose [Mass/Vol] 197 mg/dL Normal [facility] Comment on above: Performed By: #### A 1C #### [facility] [address] [place] [address] Dr. Gibson Jin HbA1c (Bld) [Mass fraction] 8.5 % Critically high 4.5-6.2 [facility] Comment on above: Performed By: #### A 1C #### [facility] [address] [place] [address] Dr. Gibson Jin LIPID PROFILEon 10-13-2022 CHOL-HDL RATIO NORM SEE BELOW Normal [facility] Comment on above: Result Comment: 3.3 - 4.4 LOW RISK 4.4 - 7.1 AVERAGE RISK 7.1 - 11.0 MODERATE RISK >11.0 HIGH RISK Performed By: #### T SH, CMP, LIPID #### [facility] [address] [address] [address] Gibson Jin Cholesterol [Mass/Vol] 167 mg/dL Normal <=200 [facility] Comment on above: Performed By: #### T SH, CMP, LIPID #### [facility] [address] [address] [address] Gibson Jin Cholesterol in HDL [Mass/Vol] 45 mg/dL Normal 40-60 [facility] Comment on above: Performed By: #### T SH, CMP, LIPID #### [facility] [address] [place] [address] Dr. Gibson Jin Cholesterol in LDL [Mass/Vol] 93.4 mg/dL Normal [facility] Comment on above: Performed By: #### T SH, CMP, LIPID #### [facility] [address] [place] [address] Dr. Gibson Jin Cholesterol.total/Chol esterol in HDL [Mass ratio] 3.7 {ratio} Normal [facility] Comment on above: Performed By: #### T SH, CMP, LIPID #### [facility] [address] [address] [address] Gibson Jin HDL NORMAL > or = 60 mg/dl - LOW CARDIOVASCULAR RISK <40 mg/dl - HIGH CARDIOVASCULAR RISK Normal [facility] Comment on above: Performed By: #### T SH, CMP, LIPID #### [facility] [address] [place] [address] Dr. Gibson Jin LDL CALC NORMAL SEE BELOW Normal [facility] Comment on above: Result Comment: <100 mg/dl OPTIMAL 100 - 129 mg/dl NEAR OR ABOVE OPTIMAL 130 - 159 mg/dl BORDERLINE HIGH 160 - 189 mg/dl HIGH >190 mg/dl VERY HIGH Performed By: #### T SH, CMP, LIPID #### [facility] [address] [place] [address] Dr. Gibson Jin Triglyceride [Mass/Vol] 143 mg/dL Normal <=150 [facility] Comment on above: Performed By: #### T SH, CMP, LIPID #### [facility] [address] [place], [place] [address] Dr. Gibson Jin VLDL CALC 28.6 mg/dL Normal [facility] Comment on above: Performed By: #### T SH, CMP, LIPID #### [facility] [address] [place], [place] [address] Dr. Gibson Jin NM STRESS/REST MULTIon 10-13 NM STRESS/REST MULTI Patient: SANDRO SEVERINO Exam Date: 10/13/2022 : 1965 Gender:F Ordering : TERESSA OLIVEROS [facility] Admission #: [id number] Family : FELIBERTO TROTTER . Order #: [id number] CLICK HERE TO VIEW EXAM RADIOLOGY REPORT [...] Winn M.D. on 10/13/2022 at 15:00 Normal [facility] POINT OF CARE GLUCOSEon 09-24 Glucose [Mass/Vol] 372 mg/dL Critically high 74-106 [facility] Comment on above: Performed By: #### P OCGLUC #### [facility] [address] [address] [address] Gibson Jin Glucose [Mass/Vol] 131 mg/dL Critically high 74-106 [facility] Comment on above: Performed By: #### P OCGLUC #### [facility] [address] [address] [address] Gibson Jin PROF 14(COMP METB)on 023 Albumin [Mass/Vol] 3.3 g/dL Critically low 3.4-5.0 [facility] Comment on above: Performed By: #### T SH, CMP, LIPID #### [facility] [address] [place] [address] Dr. Gibson Jin Albumin/Globulin [Mass ratio] 0.9 {ratio} Normal [facility] Comment on above: Performed By: #### T SH, CMP, LIPID #### [facility] [address] [address] [address] Gibson Jin ALP [Catalytic activity/Vol] 123 U/L Critically high 46-116 [facility] Comment on above: Performed By: #### T SH, CMP, LIPID #### [facility] [address] [place] [address] Dr. Gibson Jin ALT [Catalytic activity/Vol] 223 U/L Critically high 14-59 [facility] Comment on above: Performed By: #### T SH, CMP, LIPID #### [facility] [address] [address] [address] Gibson Jin Anion gap [Moles/Vol] 10.0 mmol/L Normal [facility] Comment on above: Performed By: #### T SH, CMP, LIPID #### [facility] [address] [address] [address] Gibson Jin AST [Catalytic activity/Vol] 113 U/L Critically high 15-37 [facility] Comment on above: Performed By: #### T SH, CMP, LIPID #### [facility] [address] [address] [address] Gibson Jin Bilirubin [Mass/Vol] 0.7 mg/dL Normal 0.2-1.0 [facility] Comment on above: Performed By: #### T SH, CMP, LIPID #### [facility] [address] [address] [address] Gibson Jin Calcium [Mass/Vol] 9.1 mg/dL Normal 8.5-10.1 [facility] Comment on above: Performed By: #### T SH, CMP, LIPID #### [facility] [address] [place] [address] Dr. Gibson Jin Chloride [Moles/Vol] 102 mmol/L Normal 98-107 [facility] Comment on above: Performed By: #### T SH, CMP, LIPID #### [facility] [address] [place] [address] Dr. Gibson Jin CO2 [Moles/Vol] 30.0 mmol/L Normal 21.0-32.0 [facility] Comment on above: Performed By: #### T SH, CMP, LIPID #### [facility] [address] [place] [address] Dr. Gibson Jin Creatinine [Mass/Vol] 0.73 mg/dL Normal 0.55-1.02 [facility] Comment on above: Performed By: #### T SH, CMP, LIPID #### [facility] [address] [place] [address] Dr. Gibson Jin EGFR-AF BENINESE >60 Normal >=60 [facility] Comment on above: Performed By: #### T SH, CMP, LIPID #### [facility] [address] [place] [address] Dr. Gibson Jin EGFR-NON AF BENINESE >60 Normal >=60 [facility] Comment on above: Performed By: #### T SH, CMP, LIPID #### [facility] [address] [place] [address] Dr. Gibson Jin Globulin (S) [Mass/Vol] 3.5 g/dL Normal [facility] Comment on above: Performed By: #### T SH, CMP, LIPID #### [facility] [address] [place] [address] Dr. Gibson Jin Glucose [Mass/Vol] 165 mg/dL Critically high 74-106 [facility] Comment on above: Performed By: #### T SH, CMP, LIPID #### [facility] [address] [place] [address] Dr. Gibson Jin Potassium [Moles/Vol] 4.0 mmol/L Normal 3.5-5.1 [facility] Comment on above: Performed By: #### T SH, CMP, LIPID #### [facility] [address] [place] [address] Dr. Gibson Jin Protein [Mass/Vol] 6.8 g/dL Normal 6.4-8.2 [facility] Comment on above: Performed By: #### T SH, CMP, LIPID #### [facility] [address] [place] [address] Dr. Gibson Jin Sodium [Moles/Vol] 138 mmol/L Normal 136-145 [facility] Comment on above: Performed By: #### T SH, CMP, LIPID #### [facility] [address] [place] [address] Dr. Gibson Jin Urea nitrogen [Mass/Vol] 14.0 mg/dL Normal 7.0-18.0 [facility] Comment on above: Performed By: #### T SH, CMP, LIPID #### [facility] [address] [place] [address] Dr. Gibson Jin Urea nitrogen/Creatinine [Mass ratio] 19.2 mg/mg Normal [facility] Comment on above: Performed By: #### T SH, CMP, LIPID #### [facility] [address] [place] [address] Dr. Gibson Jin TSHon 10-13-2022 TSH 3.011 uIU/mL Normal 0.358-3.740 [facility] Comment on above: Performed By: #### T SH, CMP, LIPID #### [facility] [address] [place] [address] Dr. Gibson Jin US SINGLE QUAD RT [...] DELL WINN Date: 2022-10-13 13:22 Normal [facility] CBC AUTO DIFFon 10-12-2022 BASO # 0.1 103/ul Normal 0.0-0.1 [facility] Comment on above: Performed By: #### C BC #### [facility] [address] [address] [address] Gibson Jin Basophils/100 WBC (Bld) 1.0 % Normal 0.2-2.0 [facility] Comment on above: Performed By: #### C BC #### [facility] [address] [address] [address] Gibson Jin EO # 0.2 103/ul Normal 0.0-0.7 [facility] Comment on above: Performed By: #### C BC #### [facility] [address] [address] [address] Gibson Jin Eosinophils/100 WBC (Bld) 2.2 % Normal 0.9-7.0 [facility] Comment on above: Performed By: #### C BC #### [facility] [address] [place] [address] Dr. Gibson Jin Erythrocyte distribution width (RBC) [Ratio] 12.1 % Normal 11.0-15.0 [facility] Comment on above: Performed By: #### C BC #### [facility] [address] [place] [address] Dr. Gibson Jin Hematocrit (Bld) [Volume fraction] 43.1 % Normal 36.0-48.0 [facility] Comment on above: Performed By: #### C BC #### [facility] [address] [place] [address] Dr. Gibson Jin Hemoglobin (Bld) [Mass/Vol] 15.1 g/dL Normal 12.0-16.0 [facility] Comment on above: Performed By: #### C BC #### [facility] [address] [place] [address] Dr. Gibson Jin IG # 0.06 10e3/ul Critically high 0.00-0.03 [facility] Comment on above: Performed By: #### C BC #### [facility] [address] [place] [address] Dr. Gibson Jin IG % 0.8 % Critically high 0.0-0.5 [facility] Comment on above: Performed By: #### C BC #### [facility] [address] [place] [address] Dr. Gibson Jin LYMPH # 1.5 103/ul Normal 1.2-3.8 [facility] Comment on above: Performed By: #### C BC #### [facility] [address] [place] [address] Dr. Gibson Jin Lymphocytes/100 WBC (Bld) 20.1 % Critically low 20.5-60.0 [facility] Comment on above: Performed By: #### C BC #### [facility] [address] [place] [address] Dr. Gibson Jin MANUAL DIFF REQ NO Normal [facility] Comment on above: Performed By: #### C BC #### [facility] [address] [place] [address] Dr. Gibson Jin MCH (RBC) [Entitic mass] 30.6 pg Normal 26.7-34.0 [facility] Comment on above: Performed By: #### C BC #### [facility] [address] [address] [address] Gibson Jin MCHC (RBC) [Mass/Vol] 35.0 g/dL Normal 29.9-35.2 [facility] Comment on above: Performed By: #### C BC #### [facility] [address] [address] [address] Gibson Jin MCV (RBC) [Entitic vol] 87.2 fL Normal 81.0-99.0 [facility] Comment on above: Performed By: #### C BC #### [facility] [address] [place] [address] Dr. Gibson Jin MONO # 0.5 103/ul Normal 0.3-0.8 [facility] Comment on above: Performed By: #### C BC #### [facility] [address] [place] [address] Dr. Gibson Jin Monocytes/100 WBC (Bld) 6.5 % Normal 1.7-12.0 [facility] Comment on above: Performed By: #### C BC #### [facility] [address] [place] [address] Dr. Gibson Jin NEUT # 5.0 103/ul Normal 1.4-6.5 [facility] Comment on above: Performed By: #### C BC #### [facility] [address] [place] [address] Dr. Gibson Jin Neutrophils/100 WBC (Bld) 69.4 % Normal 43.0-75.0 [facility] Comment on above: Performed By: #### C BC #### [facility] [address] [place] [address] Dr. Gibson Jin Platelet mean volume (Bld) [Entitic vol] 10.6 fL Normal 9.5-13.5 [facility] Comment on above: Performed By: #### C BC #### [facility] [address] [place] [address] Dr. Gibson Jin PLT 281 103/ul Normal 150-450 [facility] Comment on above: Performed By: #### C BC #### [facility] [address] [place] [address] Dr. Gibson Jin RBC 4.94 106/ul Normal 4.20-5.40 [facility] Comment on above: Performed By: #### C BC #### [facility] [address] [place] [address] Dr. Gibson Jin WBC 7.3 103/ul Normal 4.0-11.0 [facility] Comment on above: Performed By: #### C BC #### [facility] [address] [place] [address] Dr. Gibson Jin Covid-19 PCR ([facility])on 09-24 SARS-CoV-2 (COVID-19) RNA RIDGE+probe Ql (Unsp spec) Not detected Normal NOT DETECTED [facility] Comment on above: Result Comment: When diagnostic [...] for this test is supported by the [place] of Health and Human Service's declaration that [...] used). Performed By: #### P OCGLUC #### [facility] [address] [place] [address] Dr. Gibson Jin D-DIMERon 10-12-2022 D-DIMER 0.34 mg/L FEU Normal <=0.59 [facility] Comment on above: Performed By: #### P OCGLUC #### [facility] [address] [place] [address] Dr. Gibson Jin D-DIMER COMMENTS SEE BELOW Normal [facility] Comment on above: Result Comment: Incr [...] hospitalization. Performed By: #### P OCGLUC #### [facility] [address] [place] [address] Dr. Gibson Jin DRUG SCREEN RAPID (URINE)on 10-12-2022 AMP Negative Normal NEGATIVE [facility] Comment on above: Performed By: #### P OCGLUC #### [facility] [address] [place] [address] Dr. Gibson Jin BAR Negative Normal NEGATIVE [facility] Comment on above: Performed By: #### P OCGLUC #### [facility] [address] [place] [address] Dr. Gibson Jin BUP Negative Normal NEGATIVE [facility] Comment on above: Performed By: #### P OCGLUC #### [facility] [address] [place] [address] Dr. Gibson Jin BZO Negative Normal NEGATIVE [facility] Comment on above: Performed By: #### P OCGLUC #### [facility] [address] [place] [address] Dr. Gibson Jin CANDACE Negative Normal NEGATIVE [facility] Comment on above: Performed By: #### P OCGLUC #### [facility] [address] [place] [address] Dr. Gibson Jin CUT-OFFS SEE BELOW Normal [facility] Comment on above: Result Comment: AMP (Amphetamine): 500ng/mL, BAR (Barbituates): 200 ng/mL, BZO (Benzodiazepines): 150 ng/mL, BUP (Buprenorphine): 10 ng/mL, CANDACE (Cocaine): 150 ng/mL, mAMP (Methamphetamine): 500 ng/mL, MTD (Methadone): 200 ng/mL, OPI (Opiates): 100 ng/mL, OXY (Oxycodone): 100 ng/mL, PCP (Phencyclidine): 25 ng/mL, PPX (Propoxyphene): 300 ng/mL, THC (Cannabinoids): 50 ng/mL, TCA (Trycyclic Antidepressants): 300 ng/mL Performed By: #### P OCGLUC #### [facility] [address] [place] [address] Dr. Gibson Jin DRUG CUT HEADER DRUG CLASS TEST SYSTEM CUT-OFF CONCENTRATIONS ARE FOLLOWS: Normal [facility] Comment on above: Performed By: #### P OCGLUC #### [facility] [address] [place] [address] Dr. Gibson Jin mAMP Negative Normal NEGATIVE [facility] Comment on above: Performed By: #### P OCGLUC #### [facility] [address] [place] [address] Dr. Gibson Jin MTD Negative Normal NEGATIVE [facility] Comment on above: Performed By: #### P OCGLUC #### [facility] [address] [place] [address] Dr. Gibson Jin OPI Positive Abnormal NEGATIVE [facility] Comment on above: Performed By: #### P OCGLUC #### [facility] [address] [place] [address] Dr. Gibson Jin OXY Negative Normal NEGATIVE [facility] Comment on above: Performed By: #### P OCGLUC #### [facility] [address] [place] [address] Dr. Gibson Jin PCP Negative Normal NEGATIVE [facility] Comment on above: Performed By: #### P OCGLUC #### [facility] [address] [place] [address] Dr. Gibson Jin PPX Negative Normal NEGATIVE [facility] Comment on above: Performed By: #### P OCGLUC #### [facility] [address] [place] [address] Dr. Gibson Jin TCA Negative Normal NEGATIVE [facility] Comment on above: Performed By: #### P OCGLUC #### [facility] [address] [place] [address] Dr. Gibson Jin THC Negative Normal NEGATIVE [facility] Comment on above: Performed By: #### P OCGLUC #### [facility] [address] [place] [address] Dr. Gibson Jin POINT OF CARE GLUCOSEon 09-24 Glucose [Mass/Vol] 220 mg/dL Critically high 74-106 [facility] Comment on above: Performed By: #### P OCGLUC #### [facility] [address] [address] [address] Gibson Jin Glucose [Mass/Vol] 298 mg/dL Critically high 74-106 [facility] Comment on above: Performed By: #### P OCGLUC #### [facility] [address] [place] [address] Dr. Gibson Jin PROF 14(COMP METB)on 023 Albumin [Mass/Vol] 3.7 g/dL Normal 3.4-5.0 [facility] Comment on above: Performed By: #### C KARLIE, HSTROPN #### [facility] [address] [place] [address] Dr. Gibson Jin Albumin/Globulin [Mass ratio] 1.0 {ratio} Normal [facility] Comment on above: Performed By: #### C KARLIE, HSTROPN #### [facility] [address] [place] [address] Dr. Gibson Jin ALP [Catalytic activity/Vol] 175 U/L Critically high 46-116 [facility] Comment on above: Performed By: #### C KARLIE, HSTROPN #### [facility] [address] [place] [address] Dr. Gibson Jin ALT [Catalytic activity/Vol] 167 U/L Critically high 14-59 [facility] Comment on above: Performed By: #### C KARLIE, HSTROPN #### [facility] [address] [place] [address] Dr. Gibson Jin Anion gap [Moles/Vol] 10.6 mmol/L Normal [facility] Comment on above: Performed By: #### C KARLIE, HSTROPN #### [facility] [address] [address] [address] Gibson Jin AST [Catalytic activity/Vol] 49 U/L Critically high 15-37 [facility] Comment on above: Performed By: #### C MP, HSTROPN #### [facility] [address] [address] [address] Gibson Jin Bilirubin [Mass/Vol] 0.4 mg/dL Normal 0.2-1.0 [facility] Comment on above: Performed By: #### C MP, HSTROPN #### [facility] [address] [address] [address] Gibson Jin Calcium [Mass/Vol] 9.1 mg/dL Normal 8.5-10.1 [facility] Comment on above: Performed By: #### C MP, HSTROPN #### [facility] [address] [place] [address] Dr. Gibson Jin Chloride [Moles/Vol] 102 mmol/L Normal 98-107 [facility] Comment on above: Performed By: #### C MP, HSTROPN #### [facility] [address] [address] [address] Gibson Jin CO2 [Moles/Vol] 26.8 mmol/L Normal 21.0-32.0 [facility] Comment on above: Performed By: #### C MP, HSTROPN #### [facility] [address] [address] [address] Gibson Jin Creatinine [Mass/Vol] 0.90 mg/dL Normal 0.55-1.02 [facility] Comment on above: Performed By: #### C MP, HSTROPN #### [facility] [address] [address] [address] Gibson Jin EGFR-AF BENINESE >60 Normal >=60 [facility] Comment on above: Performed By: #### C MP, HSTROPN #### [facility] [address] [address] [address] Gibson Jin EGFR-NON AF BENINESE >60 Normal >=60 [facility] Comment on above: Performed By: #### C MP, HSTROPN #### [facility] [address] [address] [address] Gibson Jin Globulin (S) [Mass/Vol] 3.6 g/dL Normal [facility] Comment on above: Performed By: #### C MP, HSTROPN #### [facility] [address] [address] [address] Gibson Jin Glucose [Mass/Vol] 288 mg/dL Critically high 74-106 [facility] Comment on above: Performed By: #### C MP, HSTROPN #### [facility] [address] [address] [address] Gibson Jin Potassium [Moles/Vol] 3.4 mmol/L Critically low 3.5-5.1 [facility] Comment on above: Performed By: #### C MP, HSTROPN #### [facility] [address] [place] [address] Dr. Gibson Jin Protein [Mass/Vol] 7.3 g/dL Normal 6.4-8.2 [facility] Comment on above: Performed By: #### C MP, HSTROPN #### [facility] [address] [place] [address] Dr. Gibson Jin Sodium [Moles/Vol] 136 mmol/L Normal 136-145 [facility] Comment on above: Performed By: #### C MP, HSTROPN #### [facility] [address] [address] [address] Gibson Jin Urea nitrogen [Mass/Vol] 13.0 mg/dL Normal 7.0-18.0 [facility] Comment on above: Performed By: #### C MP, HSTROPN #### [facility] [address] [place] [address] Dr. Gibson Jin Urea nitrogen/Creatinine [Mass ratio] 14.4 mg/mg Normal [facility] Comment on above: Performed By: #### C MP, HSTROPN #### [facility] [address] [address] [address] Gibson Jin TROPONIN, HIGH SENSITIVITYon 10-12-2022 HSTROP <4.0 Normal 4.0-51.3 [facility] Comment on above: Result Comment: CUT- OFF POINTS HAVE BEEN ESTABLISHED BASED ON THE FOURTH UNIVERSAL DEFINITIONS OF MYOCARDIAL INFARCTION. THE UPPER REFERENCE LIMIT (URL) OF TROPONIN, DEFINED THE 99TH PERCENTILE OF cTnI DISTRIBUTION IN A REFERENCE POPULATION, HAS BEEN CONFIRMED THE DECISION THRESHOLD FOR MS DIAGNOSIS. Performed By: #### P OCGLUC #### [facility] [address] [address] [address] Gibson Jin HSTROP <4.0 Normal 4.0-51.3 [facility] Comment on above: Result Comment: CUT- OFF POINTS HAVE BEEN ESTABLISHED BASED ON THE FOURTH UNIVERSAL DEFINITIONS OF MYOCARDIAL INFARCTION. THE UPPER REFERENCE LIMIT (URL) OF TROPONIN, DEFINED THE 99TH PERCENTILE OF cTnI DISTRIBUTION IN A REFERENCE POPULATION, HAS BEEN CONFIRMED THE DECISION THRESHOLD FOR MS DIAGNOSIS. Performed By: #### C MP, HSTROPN #### [facility] [address] [address] [address] Gibson Jin XR CHEST 1 Von [...] by: DELL WINN Date: 2022-10-12 10:36 Normal [facility] COVID + FLU Quick Testingon 09-20-2022 SARS-CoV-2 (COVID-19) RNA RIDGE+probe Ql (Unsp spec) Negative [facility] Other COVID + FLU Quick Testing Negative [facility] Other Quick Strepon 09-20-2022 S. pyogenes Org specific cx Ql (Throat) Negative [facility] Other Quick Strep [facility] Other COVID/FLU/RSV RT-PCRon 06-30 SARS-CoV-2 (COVID-19) RNA RIDGE+probe Ql (Unsp spec) Negative [facility] Other COVID/FLU/RSV RT-PCR Negative [facility] Other Registrationon 02-04-2022 Registration [id number]# 1.00CD:127 [facility] 01-09-2022 Consent [id number] #1.00CD:127 [facility] COVID/FLU RT-PCRon SARS-CoV-2 (COVID-19) RNA RIDGE+probe Ql (Unsp spec) Positive [facility] Other COVID/FLU RT-PCR Negative [facility] Other Coding Summary.on 08-04-2021 Coding Summary. CD:[id number] Gh0bWw+PGhlYWQ+PE1FV BJrW78zaSAybH5RP4zBX K4ABGLOKXPRXR6MIP8ys KJ0KGnxD5IvvrRe ZbrfmQNlDW64BQa3FRK4 tObbJZqjpR4nzMVbC1v5 PwTyBH46eJ91YQgzDQZc WjC1ZjYpownonRAo T0zyVtKytLPqJyj+PHRh YmxlIHdpZHRoPScxMDAl YxOniYcgSO3wAf7vOGSm LWNvbGxhcHNlOiBj c7gwXVPzGPdhVG3haTcz V5KnyTR7OOEbk0l5Oa43 dHI+CBFmNZV3gCztHWho o501YkJlm3kxZXY6 pJSsIXqwLYD5K02hu6T5 DIXvSYZtFRU1vSM3bH6i tSgnxaqpU6EteELcEeV0 XED1mFGjqW3jgLiy qhsxkM9aInf+X07LYQ1X PLJRVQ8DOal1S9GbNmfd dHI+DS15DBGpCA91wWKv wIIjz9uleHb7ZcKl VOTiBHT8lEnkPBmhl8Jq YDKsR57asENzm7P5EGIq fVsgsTPtYiGltMQ7tJ0b YSroakiwd6ynhjwp Aptnm8eova11iD20E31s AVpgUPPeIII0GXAuURBm xVtuyl1xmI7hHz0+IDxj x1cmp4vnqYv4EcUz WHSqyoEeeMluFVC7k8Eq Lp99L1LcdNtcu5JfZyf5 mm63lIHiq6A6sUK7SOzy CSJdlB4zPWrgLiO8 AEJcVqLvgX35qCNwLEnd Ua6ksKwqaOeuYJ6pUXWc uwicIYGaiT3tCAFnbABu yVdzNO1bOQGkwsjy q624YbUvLJB4XBGeyIGs K8FykD8tWqQfDHZjUUGx E1MdgTErRIqtD682AJzo QuA0QWDhnlGfB7Yp ECFbdQykVeB3m3H6Te1F v2EndgejNJA2KDeqFUPw ThKhIvDvElS9J9YrDnt9 GZQwgDwlBP3jU2Zq KLCveocvsebhbYL5BIRs BJQreV69dJRwGWkhBk4g o0P0f879MLYbDGSzwX40 Gg8roAcxVHAxnVXS oL6ioekyt7dywuidBpKz VKLmVKo0XDi7SFQhbBna KtLbQOE6SbR8SFD2lUCs aL4axScsazzvqP9a Oyc+M40seA5iLUX4IJL6 yaozRJFlclIrWP34OL89 K3HiGoqtyQIgvSM+PGRp bcKidQapQF5fFfPz m2vjd5LhESaoN4NcCJVd LDryLdz0TUVzKDW7kWS3 nK5dWCKxFEibz8Z7gTT4 I3FrquZrjt1yl0wz RWTlMGolF19nzVRnt7Y5 NQRfpAC7JDNqhVvfFfIs mZ52Bxx+ZFKunCqlu5Lu Izmkl3xfb5upjQr6 IjMwJSIgdmFsaWduPSJ0 h4CoOl29O32vFCsqRPPg DLZvEZDkMNNlmGrmgd4s fB7jOl9+PGNvbCB3 uXL9iN9gFLYuCvM0CKfq O735WoDdzDSpLkvdw3ei g7tshPy1GoQoUKZqnqLb pCggAYQ1s6FeJk20 Z21yQPsyCIFhPSFmZKCn ACBmsYlkxx3ixL4tFy3+ UG5jf4oofs95kW80cNQ+ RDSaCZN2nKmaARkv PGIypH6sGJsjMsE7RDTr AaBgqP04vGSrZQqtRw9l bMxmsPdqNT8jKZLvjsew p674DyDap2biUKHn pJCrLEtrBFD2L97pg8Z4 QQYdDRBsGSR3pUH4wN0i bGlnbjogbGVmdDsgdmVy bPxdRTbfMGzlD775 IHRvcDsnPlBhdGllbnQg KgNiCPj7C7GjRzm5SJId xWggUM3gyOSvWDhuGv7w jLyjiAyyVE9nAXIq uijox289FdSwj7clCXNn dWQnMUvoINB9N97dq6K2 EBRbOMGiYXQ5mED6bG0u bGlnbjogbGVmdDsg gwCbfMciQZejZEsoJ099 IHRvcDsnPkJpcnRoIERh nHE2QL60KN09yDScb1G3 jOY3T4ZqJZWjfdxt htdmzHP1LVOnJRStpY80 Hq4qdDveCu4bVMQzFOJ9 CPIxaYAdZ4QktK0bDkSv FZMoNDIzE8IwaMCr VZgpU290CQftAzN1WLPu giBmL7ZnNRWeoNrxPgY3 u4I7Sl8VA0C8YC71EQ27 nBFdg8I2yDZ4J9Mj MIDqptgpprgyyYD6HHNg EBTzvE01Hd3alAejNm3f VVFcAZK7CMDwmLRwM4Bw jC1sIhMaJHYjSLXc I8NuwPVuUMkfF345XOxd GnP2TLUpveJeM4FhHJTd wQodFaM3p4K5Gx5GCHw8 UH75YQ49nVMam5A5 xLR2I6OvIECparzkavgz kVU0JBAiNYRbwR97Gi1v aOqnOp6kQXFbWZP8NCZb kJJxC8NymT3hXqAm CWKtZWGrE5IfuFNrCPru P025FFhzPfO4OACdbdVe F3KzKUIbiCpvRfG9q1N7 Bw3WBGJfOM25APN8 aZI5YK69ZF52O1SpTpgh dGFibGU+PHRhYmxlIHdp ZHRoPScxMDAlJyBzdHls FJ4jPj9gALFaTUBp mVkoyGEsKqRbe2coQTOb MEuyRF6olQyeD4HmcML3 RJXdf2n7Zd19P58eY8Vf dXA+WVAzvUH5wDY4 zM4iZdAtQzQ2JJhcX546 IqPpxRYtRgmzf7fsa4sa kVg6DhT4CRNccjZoiZtx RTN5w1JdMi85H81j IHdpZHRoPSIxNSUiIHZh dZcary1tfH4fKu4+PGNv eQZ2jTD5fH5jPrHkUlO2 AMosU417OrZtyPZf Hykmg4zgh1bcdKl7FqUa XTLrdoFaaXctLOZ3v6Ti Zp17S3RikGgtp0OnNei9 ry67jTSxr1M8xVC8 N1LqIHFimdvrpPWboOdb FT6dIFUfeuuzDVZrqM1e HHTxZ5u6McNaSrW7HVgf R4WcraQ2BPWumYOi EBmoYLP4Z39zk8G8YSTz CPXnXZO2jZJ4qL5fvNdi bjogbGVmdDsgdmVydGlj DTymVCxjH047YSPo nOywUAKjgB0uDGCzzRCz cHvaMY9vQVEnkzdwTwfO UkNJQSwgTUFSSUEgRDwv dGQ+XLTeGQD4xJgn EJjfCFYxgV6nZSHkU8s9 KgQvMeT8LNjsY0ZxRSDa lohuPi52nX3xZdKmOmX0 YCneQ5YecuK0VKDh fZDuCRsfDOO8G72vg3W7 BAGqDBKjNTC4qYX0pW4u bGlnbjogbGVmdDsgdmVy iLioZTtkZUylC081 JAQplSquTkRxIrZ7JuO4 EyH4O4AiAcg7VFAogEwo BQ4ssIQfYBncRv1apElw tElrOT4pXRIjqxzk EQMxiN5jABYbsUSyrHhf RR0rRKLgrcfho632IpGg CYE8SAJdqAXiY6FsgB7o HsEeHFFbUSLqN0Ll hVIsPBibR591NAjlOgL8 WUAlrfGgB2ZyTMLfoBsh DeW2x9P7Cn36KGWZXAFa czwvdGQ+PHRkIHN0 gNgyEWhsEEDsxO8oQXOs Q9x4YkJsLaL5CJsyV5Ws VKDsahaqUo29oW2sNeIx YmT1DZagJ2AwvbZ1 HSQsjAKnVCddWLO0Z57q c4Q4WWEvYQPtLPE6aTE0 bS9ylYxowzimnCVbhYzp dmVydGljYWwtYWxp Y824BQHnnKhpNySoyELv ZTwvdGQ+GDWmHXI4aBik JGgjLVWqxJ5zAOAuL1n9 SsRhQkY9FSbaQ9Ie KZGstjajIs22vD3dGgKk PfY9NEhfI7OaqmM2LALy qEEtVQskSQY8M55lb1Y1 WEOxCGWoSOP8pCZ6 bE8hhXxlkhgkrJNjoBxo gbXtwVamMJjqBCznA340 KSNphOovSxGcT7Renmte ZzwvdGQ+FO15by32 M0HxIyuhPgo6AINbEHG8 uYX0lK6kDGQqUDpvw3V2 rCH2T9YmynJbxu0lc7cr LKAaGAixW48psQEt l8C5KJTusYM7RWYngKjp KoWinZ43Jiy+PGNvbGdy w0FsMxgub0zaq1afjMs4 IjMwJSIgdmFsaWdu NWB3e9EoTu68M62aLEuf ZHRoPSIzMCUiIHZhbGln sc7xmL9jGe6+PGNvbCB3 yGK7vG8kWzCsOkE7 DDwyC197CwRoqNLaVwdn j6fkm2zcpPh9AfTqJVWm xkTdyDtkYJP4s7LqSh82 Q7GrsRczr1GgUlt3 xh60fJEzi7M3iXP1D2Rp IXXacnuzuQXyjBixIB1x SPPauraoYXSbrI5pQBDj W0i3RdHiPpJ5FBxf N8WimpT8CIUegKNbHQNa dTSGuU5wyslyi3mpfztn EnUcFFFjRIc8HIy2IKXp xLifByTyAJU8FrS6 YUQ6tOMxtA2jhVbnfiwe pE6gKqf+XIf4b6xciARp XY8vlWN4BO27SL06zWXm z4P5zYJ9K4PaLIYs muclhvljyVX6DXMyKAAz iP73Xj5rnFmjNd4pVYFf YCN9ZNYfkTQrN3GzuT8z QrAbQYDtCIUlD4Ja uLKpWVhqC311TOnkZbV9 PGQkhfOdR4DhOFKprWjl JeI8j5X3Cy8WCL32EV22 YE37xCGfd4C2nLN7 R0VcARMlhhiqoxwbtKS8 MXSrJGNtyU38Zx2zbNyk Ny7zDPGgVYC5VZZrtOHn O7DobX1vTmIjKVQd CVVcU5QqySCrVDgrS625 ARuyJwA0OJYloxBqI8Oz WTGyhWjnVkQ7o5Y9Il0F Rz95EB67YW82pSMw q6D7yDC9O6RiOGUerigt xzrefAR0XKUxKJGvqE83 Cr9vdEiwGk6jLZWiRGK4 GLBfxNAbU5KghW6h PnPzCPQlPRXdR5AkhFGc DYgbS759WCwfQeR4KUIv tgCiK7RoPJXjaCrdYiC8 r5Q4Vp0SMSiagpr0 O6EpKhlwdOJ+HI90MQPf EJ58gOFavGEep4hqpDl5 YdDnWLTwMFB0aMehKJki g4KbAHAsK80liRQv c2U6 (more content not included)... Normal [facility] Consent for Treatmenton Consent for Treatment [id number]#1.00CD:127 Normal [facility] COVID-19 ([facility])on 08-01-2021 SARS-CoV-2 (COVID-19) RNA RIDGE+probe Ql (Resp) Not detected Normal Not Detected [facility] Comment on above: Result Comment: This test result should be correlated with clinical presentations and medical history by a healthcare provider to determine its clinical significance. This assay was performed by a reverse transcriptase real-time polymerase chain reaction (rt PCR) method on the [employer] system. This test has been authorized only [...] or revoked sooner. Performed By: #### 2 [id number] #### [facility] [address] [place] [address] SARS-CoV-2 (COVID-19) RNA RIDGE+probe Ql (Unsp spec) Pass Normal Pass [facility] Comment on above: Performed By: #### 2 [id number] #### [facility] [address] [place] [address] Specimen source Nom (Unsp spec) Nasal Normal [facility] Comment on above: Performed By: #### 2 [id number] #### [facility] [address] [place] [address] [place] [place]-2021 ADMITTED TO INTENSIVE CARE UNIT FOR CONDITION OF INTEREST:FIND:PT: Unknown Normal [facility] Comment on above: Performed By: #### 2 [id number] #### [facility] [address] [place] [address] EMPLOYED IN A HEALTHCARE SETTING:FIND:PT: Unknown Normal [facility] Comment on above: Performed By: #### 2 [id number] #### [facility] [address] [place] [address] FIRST TEST FOR CONDITION OF INTEREST:FIND:PT: Unknown Normal [facility] Comment on above: Performed By: #### 2 [id number] #### [facility] [address] [place] [address] HAS SYMPTOMS RELATED TO CONDITION OF INTEREST:FIND:PT: Unknown Normal [facility] Comment on above: Performed By: #### 2 [id number] #### [facility] [address] [place] [address] HOSPITALIZED FOR CONDITION OF INTEREST:FIND:PT: Unknown Normal [facility] Comment on above: Performed By: #### 2 [id number] #### [facility] [address] [place] [address] STATUS:FIND:PT: Unknown Normal [facility] Comment on above: Performed By: #### 2 [id number] #### [facility] [address] [place] [address] RESIDES IN A CONGREGATE CARE SETTING:FIND:PT: Unknown Normal [facility] Comment on above: Performed By: #### 2 [id number] #### [facility] [address] [place] [address] CTA CHEST W CONTRASTon 01-14 CTA CHEST [...] gastroesophageal wall thickening, correlate clinically. Interpreted by: wKabena Peña MD Signed by: Kwabena Peña MD 01/13/21 Final result Normal [facility] CBC Auto DifferentialOrdered By: Tita Edwards on 01-13-2021 [employer] # 0.10 [facility] th Work Phone: [employer] Immature Granulocyte NOT REPORTED [facility] Work Phone: [facility] Lymph # 0.80 Low [facility] al[facility] Work Phone: [facility] [place] # 0.50 [facility] Work Phone: Basophils (Bld) [#/Vol] 0.00 10*3/uL [employer] Work Phone: Basophils/100 WBC (Bld) 0 % 0 - 2 % [employer] Work Phone: Differential Type YES [facility] Work Phone: Eosinophils/100 WBC (Bld) 1 % 0 - 5 % [employer] Phone: Hematocrit (Bld) [Volume fraction] 42.0 % 36 - 46 % [employer] Work Phone: Hemoglobin.gastrointes tinal spec 1 Ql (Stl) 14.3 g/dL 12.0 - 16.0 g/dL [employer] Phone: Immature Granulocytes NOT REPORTED 0 % [employer] Phone: Interpretation and review of laboratory results Abnormal [employer] Phone: Lymphocytes/100 WBC (Bld) 11 % Low 15 - 40 % [employer] Work Phone: MCH (RBC) [Entitic mass] 29.5 pg 26 - 34 pg [employer] Work Phone: MCHC (RBC) [Mass/Vol] 34.1 g/dL 31 - 37 g/dL [employer] Phone: MCV (RBC) [Entitic vol] 86.5 fL 80 - 100 fL [employer] Phone: Monocytes/100 WBC (Bld) 7 % 4 - 8 % [employer] Phone: NRBC Automated NOT REPORTED per 100 WBC [employer] Work Phone: Platelet distribution width (Bld) [Ratio] 13.3 % 12.1 - 15.2 % [employer] Phone: Platelet Estimate NOT REPORTED [employer] Phone: Platelet mean volume (Bld) [Entitic vol] NOT REPORTED 6.0 - 12.0 fL [employer] Phone: Platelets (Bld) [#/Vol] 340 10*3/uL [employer] Phone: RBC (Bld) [#/Vol] 4.86 10*6/uL 4.0 - 5.2 m/uL [employer] Phone: RBC (Bld) [#/Vol] NOT REPORTED [employer] Phone: Segmented neutrophils/100 WBC (Bld) 81 % High 47 - 75 % [employer] Phone: Segs Absolute 6.30 [employer] Work Phone: WBC (Bld) [#/Vol] 7.8 10*3/uL [employer] Phone: WBC (Bld) [#/Vol] NOT REPORTED [employer] Phone: [facility] [employer] Phone: CBC with Diffon 01-13-2021 Abs. Basophil 0.00 k/uL Normal 0.0-0.2 [facility] Comment on above: Performed By: #### D DRE NARANJO, AMANDA #### [facility] [address] [place] [address] Environmental Designer: Flash Jaramillo MD Abs.Neutrophil (Seg) 6.30 k/uL Normal 2.5-7.0 [facility] Comment on above: Performed By: #### D JOSE A CDP, REJEC #### [facility] [address] [id number] Environmental Designer: Flash Jaarmillo MD Auto Diff Performed YES Normal [facility] Comment on above: Performed By: #### D JOSE A CDP, REJEC #### [facility] [address] [place] [address] Environmental Designer: Flash Jaramillo MD Basophils/100 WBC (Bld) 0 % Normal 0-2 [place] [facility] Comment on above: Performed By: #### D JOSE A CDP, REJEC #### [facility] [address] [place] [address] Environmental Designer: Flash Jaramillo MD Eosinophils (Bld) [#/Vol] 0.10 10*3/uL Normal 0.0-0.4 [facility] Comment on above: Performed By: #### D JOSE A CDP, REJEC #### [facility] [address] [place] [id number] Environmental Designer: Flash Jaramillo MD Eosinophils/100 WBC (Bld) 1 % Normal 0-5 [facility] Comment on above: Performed By: #### Maris NARANJO CDP, REJEC #### [facility] [address] [place] [address] Environmental Designer: Flash Jaramillo MD Erythrocyte distribution width (RBC) [Ratio] 13.3 % Normal 12.1-15.2 [facility] Comment on above: Performed By: #### D JOSE A CDP, REJEC #### [facility] [address] [place] [id number] Environmental Designer: Flash Jaramillo MD Hematocrit (Bld) [Volume fraction] 42.0 % Normal 36-46 [facility] Comment on above: Performed By: #### D JOSE A CDP, REJEC #### [facility] [address] [place], [place] [id number] Environmental Designer: Flash Jaramillo MD Hemoglobin (Bld) [Mass/Vol] 14.3 g/dL Normal 12.0-16.0 [facility] Comment on above: Performed By: #### DRE SIU, REJEC #### [facility] [address] [place] [address] Environmental Designer: Flash Jaramillo MD Lymphocytes (Bld) [#/Vol] 0.80 10*3/uL Low 1.0-4.8 [facility] Comment on above: Performed By: #### DRE SIU, REJEC #### [facility] [address] [place] [address] Environmental Designer: Flash Jaramillo MD Lymphocytes/100 WBC (Bld) 11 % Low 15-40 [facility] Comment on above: Performed By: #### DRE SIU, REJEC #### [facility] [address] [place] [address] Environmental Designer: Flash Jaramillo MD MCH (RBC) [Entitic mass] 29.5 pg Normal 26-34 [facility] Comment on above: Performed By: #### DRE SIU, REJEC #### [facility] [address] [place] [address] Environmental Designer: Flash Jaramillo MD MCHC (RBC) [Mass/Vol] 34.1 g/dL Normal 31-37 [facility] Comment on above: Performed By: #### DRE SIU, REJEC #### [facility] [address] [place] [address] Environmental Designer: Flash Jaramillo MD MCV (RBC) [Entitic vol] 86.5 fL Normal 80-100 [facility] Comment on above: Performed By: #### DRE SIU, REJEC #### [facility] [address] [place] [address] Environmental Designer: Flash Jaramillo MD Monocytes (Bld) [#/Vol] 0.50 10*3/uL Normal 0.0-1.0 [facility] Comment on above: Performed By: #### Maris NARANJO CDP, REJEC #### [facility] [address] [place] [address] Environmental Designer: Flash Jaramillo MD Monocytes/100 WBC (Bld) 7 % Normal 4-8 [facility] Comment on above: Performed By: #### DRE SIU, REJEC #### [facility] [address] [place] [address] Environmental Designer: Flash Jaramillo MD Neutrophil (Seg) 81 % High 47-75 [facility] Comment on above: Performed By: #### DRE SIU, REJEC #### [facility] [address] [place] [address] Environmental Designer: Flash Jaramillo MD Platelets (Bld) [#/Vol] 340 10*3/uL Normal 140-450 [facility] Comment on above: Performed By: #### DRE SIU, REJEC #### [facility] [address] [place] [address] Environmental Designer: Flash Jaramillo MD RBC (Bld) [#/Vol] 4.86 10*6/uL Normal 4.0-5.2 [facility] Comment on above: Performed By: #### DRE SIU, REJEC #### [facility] [address] [place] [address] Environmental Designer: Flash Jaramillo MD WBC (Bld) [#/Vol] 7.8 10*3/uL Normal 3.5-11.0 [facility] Comment on above: Performed By: #### DRE SIU, REJEC #### [facility] [address] [place], [place] [id number] Environmental Designer: Flash Jaramillo MD Abs.Imm.Granulocyte NOT REPORTED Normal 0.00-0.30 [facility] Comment on above: Performed By: #### D JOSE A CDP, REJEC #### [facility] [address] [place], [place] [id number] Environmental Designer: Flash Jaramillo MD Immature Granulocyte NOT REPORTED Normal 0 [facility] Comment on above: Performed By: #### D JOSE A CDP, REJEC #### [facility] [address] [place] [address] Environmental Designer: Flash Jaramillo MD MPV NOT REPORTED Normal 6.0-12.0 [facility] Comment on above: Performed By: #### D DRE NARANJO, REJEC #### [facility] [address] [place], [place] [id number] Environmental Designer: Flash Jaramillo MD NRBC Automated NOT REPORTED Normal [facility] Comment on above: Performed By: #### D DRE NARANJO, REJEC #### [facility] [address] [place] [id number] Environmental Designer: Flash Jaramillo MD Platelet Estimate NOT REPORTED Normal [facility] Comment on above: Performed By: #### D OJSE A CDP, REJEC #### [facility] [address] [place] [id number] Environmental Designer: Flash Jaramillo MD RBC morphology finding Nom (Bld) NOT REPORTED Normal [facility] Comment on above: Performed By: #### D JOSE A, CDP, REJEC #### [facility] [address] [place], [place] [id number] Environmental Designer: Flash Jaramillo MD WBC Morphology NOT REPORTED Normal [facility] Comment on above: Performed By: #### D JOSE A, CDP, REJEC #### [facility] [address] [place] [address] Environmental Designer: Flash Jaramillo MD CTA CHEST W CONTRASTOrdered By: Tita Edwards on 01-13-2021 No evidence for acute large occlusive pulmonary embolism. No evidence for thoracic aortic aneurysm or dissection flap. No suspicious lung infiltrates or consolidation. Hepatic steatosis. Mild gastroesophageal wall thickening, correlate clinically. [facility] Phone: EXAMINATION: CTA CHEST W CONTRAST HISTORY: [...] distal esophagitis/wall lesion. No acute bony abnormality. [facility] Phone: [place], pn Incoming Radiant Results From [employer] - 01/13/2021 10:06 PM EDT EXAMINATION: CTA [...] steatosis. Mild gastroesophageal wall thickening, correlate clinically. [facility] [employer] Work Phone: [facility] Work Phone: Comp Metabolic Profon 2020 (cont.) Normal [facility] Comment on above: Result Comment: Aver age GFR for 50-59 years old: 93 mL/min/1.73sq m Chronic Kidney Disease: <60 mL/min/1.73sq m Kidney failure: <15 mL/min/1.73sq m eGFR calculated using average adult body mass. Additional eGFR calculator available at: http://www.[employer]/multiple_crcl_2012.htm Performed By: #### C P, TROPI #### [facility] [address] [place] [address] Environmental Designer: Flash Jaramillo MD Albumin [Mass/Vol] 4.3 g/dL Normal 3.5-5.2 [facility] Comment on above: Performed By: #### C P, TROPI #### [facility] [address] [place] [address] Environmental Designer: Flash Jaramillo MD Alkaline Phos 165 U/L High 35-104 [facility] Comment on above: Performed By: #### C P, TROPI #### [facility] [address] [place] [address] Environmental Designer: Flash Jaramillo MD ALT [Catalytic activity/Vol] 24 U/L Normal 5-33 [facility] Comment on above: Performed By: #### C P, TROPI #### [facility] [address] [place] [address] Environmental Designer: Flash Jaramillo MD Anion gap [Moles/Vol] 10 mmol/L Normal 9-17 [facility] Comment on above: Performed By: #### C P, TROPI #### [facility] [address] [place], [place] [id number] Environmental Designer: Flash Jaramillo MD AST [Catalytic activity/Vol] 14 U/L Normal <32 [facility] Comment on above: Performed By: #### C P, TROPI #### [facility] [address] [place] [address] Environmental Designer: Flash Jaramillo MD Bilirubin [Mass/Vol] 0.24 mg/dL Low 0.30-1.20 [facility] Comment on above: Performed By: #### C P, TROPI #### [facility] [address] [place] [address] Environmental Designer: Flash Jaramillo MD BUN/CRE Ratio 16 Normal 9-20 [facility] Comment on above: Performed By: #### C P, TROPI #### [facility] [address] [place] [address] Environmental Designer: Flash Jaramillo MD Calcium [Mass/Vol] 9.9 mg/dL Normal 8.6-10.4 [facility] Comment on above: Performed By: #### C P, TROPI #### [facility] [address] [place] [address] Environmental Designer: Flash Jaramillo MD Chloride [Moles/Vol] 101 mmol/L Normal 98-107 [facility] Comment on above: Performed By: #### C P, TROPI #### [facility] [address] [place], [place] [id number] Environmental Designer: Flash Jaramillo MD CO2 [Moles/Vol] 24 mmol/L Normal 20-31 [facility] Comment on above: Performed By: #### C P, TROPI #### [facility] [address] [place], [place] [phone] Environmental Designer: Flash Jaramillo MD Creatinine [Mass/Vol] 1.04 mg/dL High 0.50-0.90 [facility] Comment on above: Performed By: #### C P, TROPI #### [facility] [address] [place] [address] Environmental Designer: Flash Jaramillo MD GFR, Amer >60 Normal >60 [facility] Comment on above: Performed By: #### C P, TROPI #### [facility] [address] [place] [address] Environmental Designer: Flash Jaramillo MD GFR,non Amer 55 mL/min Low >60 [facility] Comment on above: Performed By: #### C P, TROPI #### [facility] [address] [place] [address] Environmental Designer: Flash Jaramillo MD Glucose [Mass/Vol] 126 mg/dL High 70-99 [facility] Comment on above: Performed By: #### C P, TROPI #### [facility] [address] [place] [address] Environmental Designer: Flash Jaramillo MD Potassium [Moles/Vol] 4.2 mmol/L Normal 3.7-5.3 [facility] Comment on above: Performed By: #### C P, TROPI #### [facility] [address] [place] [address] Environmental Designer: Flash Jaramillo MD Protein [Mass/Vol] 7.9 g/dL Normal 6.4-8.3 [facility] Comment on above: Performed By: #### C P, TROPI #### [facility] [address] [place] [address] Environmental Designer: Flash Jaramillo MD Sodium [Moles/Vol] 135 mmol/L Normal 135-144 [facility] Comment on above: Performed By: #### C P, TROPI #### [facility] [address] [place] [address] Environmental Designer: Flash Jaramillo MD Urea nitrogen [Mass/Vol] 17 mg/dL Normal 6-20 [facility] Comment on above: Performed By: #### C P, TROPI #### [facility] [address] [place], [place] [id number] Environmental Designer: Flash Jaramillo MD Albumin/Glob Ratio NOT REPORTED Normal 1.0-2.5 [facility] Comment on above: Performed By: #### C P, TROPI #### [facility] [address] [place], [place] [phone] Environmental Designer: Flash Jaramillo MD Staging: NOT REPORTED Normal [facility] Comment on above: Performed By: #### C P, TROPI #### [facility] [address] [place] [address] Environmental Designer: Flash Jaramillo MD Comprehensive Metabolic Pane lOrdered By: Tita Edwards on 01-13-2021 Albumin [Mass/Vol] 4.3 g/dL 3.5 - 5.2 g/dL [facility] [employer] Phone: Albumin/Globulin Ratio NOT REPORTED [employer] [facility] [employer] Phone: ALP (Bld) [Catalytic activity/Vol] 165 U/L High 35 - 104 U/L [facility] [employer] Phone: ALT [Catalytic activity/Vol] 24 U/L 5 - 33 U/L [facility] [employer] Phone: Anion gap [Moles/Vol] 10 mmol/L 9 - 17 mmol/L [facility] [employer] Phone: AST [Catalytic activity/Vol] 14 U/L <32 [facility] Phone: Bilirubin [Mass/Vol] 0.24 mg/dL Low 0.30 - 1.20 mg/dL [facility] Phone: Calcium [Mass/Vol] 9.9 mg/dL 8.6 - 10. 4 mg/dL [facility] Phone: Chloride [Moles/Vol] 101 mmol/L 98 - 10 7 mmol/L [facility] Phone: CO2 [Moles/Vol] 24 mmol/L 20 - 31 mmol/L [facility] Phone: Creatinine [Mass/Vol] 1.04 mg/dL High 0.50 - 0.90 mg/dL [facility] Phone: Free PSA/Total PSA [Mass fraction] 7.9 g/dL 6.4 - 8.3 g/dL [facility] Phone: GFR >60 >60 mL/min [employer] Phone: GFR Non- 55 mL/min Low >60 [facility] Phone: GFR/1.73 sq M.predicted MDRD (S/P/Bld) [Vol rate/Area] [facility] Phone: Comment on above: Average GFR for 50-5 9 years old: 93 mL/min/1.73sq m Chronic Kidney Disease: <60 mL/min/1.73sq m Kidney failure: <15 mL/min/1.73sq m eGFR calculated using average adult body mass. Additional eGFR calculator available at: http://www.[employer]/multiple_crcl_2012.htm GFR/1.73 sq M.predicted MDRD (S/P/Bld) [Vol rate/Area] NOT REPORTED [facility] Phone: Glucose [Mass/Vol] 126 mg/dL High 70 - 99 mg/dL [facility] Phone: Interpretation and review of laboratory results Abnormal [facility] Phone: Potassium [Moles/Vol] 4.2 mmol/L 3.7 - 5.3 mmol/L [facility] Phone: Sodium [Moles/Vol] 135 mmol/L 135 - 144 mmol/L [facility] Phone: Urea nitrogen (BldV) [Mass/Vol] 17 mg/dL 6 - 20 mg/dL [facility] Phone: Urea nitrogen/Creatinine (Bld) [Mass ratio] 16 [facility] Phone: [facility] Phone: D-Dimer Teston 01-13-2021 D-Dimer Test 0.88 mg/L FEU High 0.00-0.59 [facility] Comment on above: Result Comment: When combined [...] #### D JOSE A, DRE, REJEC #### [facility] [address] [place] [address] Environmental Designer: Flash Jaramillo MD D-Dimer, QuantitativeOrdered By: Tita Edwards on 01-13-2021 D-Dimer, Quant 0.88 High [employer] Work Phone: Comment on above: When combined [...] Interpretation and review of laboratory results Abnormal [facility] Phone: [facility] Phone: SPECIMEN REJECTIONOrdered By : Tita Edwards on 01-13-2021 - NOT REPORTED [facility] Phone: Ordered Test CP TROP [facility] Phone: Reason for Rejection Unable to perform testing: Specimen hemolyzed. [facility] Phone: Specimen source Nom (Unsp spec) BLOOD IV START [facility] Phone: [facility] Phone: Specimen Rejectionon 021 Reason for rejection Unable to perform testing: Specimen hemolyzed. [facility] Comment on above: Performed By: #### D DRE NARANJO, REJEC #### [facility] [address] [place] [address] Environmental Designer: Flash Jaramillo MD Source of sample BLOOD IV START [facility] Comment on above: Performed By: #### D DRE NARANJO, REJEC #### [facility] [address] [place] [address] Environmental Designer: Flash Jaramillo MD Test ordered CP TROP [facility] Comment on above: Performed By: #### D DRE NARANJO, REJEC #### [facility] [address] [place] [address] Environmental Designer: Flash Jaramillo MD ----- NOT REPORTED [facility] Comment on above: Performed By: #### D DRE NARANJO, REJEC #### [facility] [address] [place], [place] [id number] Environmental Designer: Flash Jaramillo MD Troponinon 01-13-2021 Troponin, High Sens <6 Normal 0-14 [facility] Comment on above: Result Comment: High Sensitivity Troponin values cannot be compared with other Troponin methodologies. Patients with high levels of Biotin oral intake (i.e >5mg/day) may have falsely decreased Troponin levels. Samples collected within 8 hours of biotin intake may require additional information for diagnosis. Performed By: #### T ROPI #### [facility] [address] [place], [place] [phone] Environmental Designer: Flash Jaramillo MD Troponin Interp. NOT REPORTED [facility] Comment on above: Performed By: #### T ROPI #### [facility] [address] [place], [place] [id number] Environmental Designer: Flash Jaramillo MD Troponin T NOT REPORTED Normal <0.03 [facility] Comment on above: Performed By: #### T ROPI #### [facility] [address] [place], [place] [id number] Environmental Designer: Flash Jaramillo MD Troponin, High Sens <6 Normal 0-14 [facility] Comment on above: Result Comment: High Sensitivity Troponin values cannot be compared with other Troponin methodologies. Patients with high levels of Biotin oral intake (i.e >5mg/day) may have falsely decreased Troponin levels. Samples collected within 8 hours of biotin intake may require additional information for diagnosis. Performed By: #### C P, TROPI #### [facility] [address] [place] [address] Environmental Designer: Flash Jaramillo MD Troponin Interp. NOT REPORTED Normal [facility] Comment on above: Performed By: #### C P, TROPI #### [facility] [address] [place] [address] Environmental Designer: Flash Jaramillo MD Troponin T NOT REPORTED Normal <0.03 [facility] Comment on above: Performed By: #### C P, TROPI #### [facility] [address] [place] [address] Environmental Designer: Flash Jaramillo MD TroponinOrdered By: Tita Edwards on 01-13-2021 Troponin Interp NOT REPORTED [facility] [employer] Work Phone: Troponin T NOT REPORTED <0.03 ng/mL [facility] Work Phone: Troponin, High Sensitivity <6 0 - 14 ng/L [facility] Work Phone: Comment on above: High Sensitivity Troponin values cannot be compared with other Troponin methodologies. Patients with high levels of Biotin oral intake (i.e >5mg/day) may have falsely decreased Troponin levels. Samples collected within 8 hours of biotin intake may require additional information for diagnosis. [employer] [facility] Work Phone: Troponin Interp NOT REPORTED [employer] Work Phone: Troponin T NOT REPORTED <0.03 ng/mL [employer] Work Phone: Troponin, High Sensitivity <6 0 - 14 ng/L [facility] Phone: Comment on above: High Sensitivity Troponin values cannot be compared with other Troponin methodologies. Patients with high levels of Biotin oral intake (i.e >5mg/day) may have falsely decreased Troponin levels. Samples collected within 8 hours of biotin intake may require additional information for diagnosis. [employer] Work Phone: XR CHEST PORTABLEon 01-14-20 XR CHEST [...] Sarbjit Ramirez MD 01/13/21 Final result Normal [facility] XR CHEST PORTABLEOrdered By: Tita Edwards on 01-13-2021 No focal consolidation, pneumothorax or pleural effusion. [employer] Work Phone: EXAM: XR CHEST PORTABLE HISTORY: Shortness of breath, chest pain. COMPARISON: None. TECHNIQUE: AP radiograph of the chest was performed. FINDINGS: No focal consolidation, pneumothorax or pleural effusion. There is mild elevation of the right hemidiaphragm. The cardiomediastinal silhouette is unremarkable. There are degenerative changes of the spine. [employer] Work Phone: [place], Mh[employer] Incoming Radiant Results From [employer] - 01/13/2021 8:24 PM EDT EXAM: XR CHEST PORTABLE HISTORY: Shortness of breath, chest pain. COMPARISON: None. TECHNIQUE: AP radiograph of the chest was performed. FINDINGS: No focal consolidation, pneumothorax or pleural effusion. There is mild elevation of the right hemidiaphragm. The cardiomediastinal silhouette is unremarkable. There are degenerative changes of the spine. IMPRESSION: No focal consolidation, pneumothorax or pleural effusion. [facility] Phone: [facility] Phone: Vital Signs Date Time Vital Sign Value Performing Clinician Facility 06-16-2023 10:00-0500 Body height 157.48 cm Samra Yehmond Other [facility] Other 06-16-2023 10:00-0500 Body mass index (BMI) [Ratio] 35.52 kg/m2 Samra Wick Other [facility] Other 06-16-2023 10:00-0500 Body temperature 98 [degF] Samra Yehmond Other [facility] Other 06-16-2023 10:00-0500 Body weight 88.09 kg Samra Wick Other [facility] Other 06-16-2023 10:00-0500 Diastolic blood pressure 80 mm[Hg] Samra Wick Other [facility] Other 06-16-2023 10:00-0500 Respiratory rate 18 /min Samra Yehmond Other [facility] Other 06-16-2023 10:00-0500 SaO2% (BldA) [Mass fraction] 95 % Samra Yehmond Other [facility] Other 06-16-2023 10:00-0500 Systolic blood pressure 132 mm[Hg] Samra Yehmond Other [facility] Other 02-26-2023 11:45-0500 Body height 157.48 cm Siobhan Meyers Other [facility] Other 09-20-2022 11:45-0500 Body mass index (BMI) [Ratio] 34.93 kg/m2 Siobhan Meyers Other [facility] Other 09-20-2022 11:45-0500 Body temperature 98.3 [degF] Siobhan Meyers Other [facility] Other 09-20-2022 11:45-0500 Body weight 86.64 kg Siobhan Meyers Other [facility] Other 09-20-2022 11:45-0500 Respiratory rate 18 /min Siobhan Meyers Other [facility] Other 09-20-2022 11:45-0500 SaO2% (BldA) [Mass fraction] 98 % Siobhan Meyers Other [facility] Other 06-30-2022 18:35-0500 Body height 157.48 cm Cassandra Dumont Other [facility] Other 06-30-2022 18:35-0500 Body mass index (BMI) [Ratio] 34.56 kg/m2 Cassandra Dumont Other [facility] Other 06-30-2022 18:35-0500 Body temperature 97.7 [degF] Cassandra Dumont Other [facility] Other 06-30-2022 18:35-0500 Body weight 85.73 kg Cassandra Dumont Other [facility] Other 06-30-2022 18:35-0500 Diastolic blood pressure 72 mm[Hg] Cassandra Dumont Other [facility] Other 06-30-2022 18:35-0500 Respiratory rate 18 /min Cassandra Dumont Other [facility] Other 06-30-2022 18:35-0500 SaO2% (BldA) [Mass fraction] 98 % Cassandra Tim Other [facility] Other 06-30-2022 18:35-0500 Systolic blood pressure 126 mm[Hg] Cassandra Dumont Other [facility] Other 12-18-2021 16:55-0400 Body height 157.48 cm Siobhan Gonzalezault Other [facility] Other 12-18-2021 16:55-0400 Body mass index (BMI) [Ratio] 32.92 kg/m2 Siobhan Luigi Other [facility] Other 12-18-2021 16:55-0400 Body temperature 98.9 [degF] Siobhan Luigi Other [facility] Other 12-18-2021 16:55-0400 Body weight 81.65 kg Siobhan Gonzalezault Other [facility] Other 12-18-2021 16:55-0400 Respiratory rate 16 /min Siobhan Luigi Other [facility] Other 12-18-2021 16:55-0400 SaO2% (BldA) [Mass fraction] 95 % Siobhan Luigi Other [facility] Other 01-13-2021 22:34-0400 Diastolic blood pressure 80 mm[Hg] Tita Edwards MD Work Phone: [employer] Work Phone: 01-13-2021 22:34-0400 Heart rate 78 /min Tita Edwards MD Work Phone: [employer] Work Phone: 01-13-2021 22:34-0400 Respiratory rate 17 /min Tita Edwards MD Work Phone: [employer] Work Phone: 01-13-2021 22:34-0400 Systolic blood pressure 134 mm[Hg] Tita Edwards MD Work Phone: [employer] Work Phone: 01-13-2021 19:33-0400 Body temperature 98.01 [degF] Tita Edwards MD Work Phone: [employer] Work Phone: 01-13-2021 19:33-0400 Body weight 79.38 kg Tita Edwards MD Work Phone: [employer] Work Phone: 01-13-2021 19:33-0400 SaO2% (BldA) [Mass fraction] 99 % Tita Edwards MD Work Phone: [employer] Work Phone: Encounters Encounter Date Encounter Type Care Provider Facility Start: 11-18-2023 End: 11-18-2023 ambulatory CHRIS DHILLON Not Available Start: 10-22-2023 End: 10-22-2023 ambulatory UNKNOWN PROVIDER Facility:[facility] Start: 10-01-2023 End: 10-01-2023 ambulatory CHRIS FELTER Not Available Start: 09-15-2023 End: 09-16-2023 ambulatory UNKNOWN PROVIDER Facility:[facility] Start: 09-10-2023 End: 09-10-2023 ambulatory [facility] Start: 07-30-2023 End: 07-30-2023 ambulatory [facility] Start: 06-29-2023 End: 06-29-2023 ambulatory CHRIS DHILLON Not Available Start: 06-16-2023 End: 06-16-2023 ambulatory Samra Wick Other [facility] Other Start: 06-16-2023 Office outpatient vi sit 15 minutes Samra Shamika [facility] Start: 05-23-2023 Letter encounter Marisol canojosette Start: 01-05-2023 End: 01-05-2023 ambulatory [facility] Start: 12-09-2022 End: 12-09-2022 ambulatory [facility] Start: 10-30-2022 End: 10-30-2022 ambulatory [facility] Start: 10-12-2022 End: 10-13-[address] ROMAIN CAN Facility:[facility] Start: 09-20-2022 End: 09-20-2022 ambulatory Siobhan Meyers Other [facility] Other Start: 09-20-2022 Office outpatient vi sit 15 minutes Siobhan Meyers [facility] Start: 06-30-2022 End: 06-30-2022 ambulatory Cassandra Dumont Other [facility] Other Start: 06-30-2022 Office outpatient vi sit 25 minutes Cassandra Dumont [facility] Start: 12-18-2021 End: 12-18-2021 ambulatory Siobhan Meyers Other [facility] Other Start: 12-18-2021 Office outpatient vi sit 25 minutes Siobhanjaja Meyers [facility] Start: 07-30-2021 End: 10-29-2021 Patient encounter procedure MORALES ANGULO [facility] Start: 01-13-2021 End: 01-14-2021 Emergency department patient visit TITA EDWARDS [facility] Start: 01-13-2021 End: 01-13-2021 Emergency department patient visit Tita Edwards MD Work Phone: [facility] ED Comment on above: Chest pain, [...] DTaP/Tdap/Td vaccine (2 - Td or Tdap) [facility] Work Phone: Start: 09-15-2023 End: 09-15-2023 Patient encounter procedure 09/15/2023 10:50 AM EST Procedure Visit [facility] [address] [place] [address] Pasquale Rosa, Syd [address] [place] [address] [facility] Start: 2023 RSV vaccine (optional 60+ years) RSV vaccine (optional 60+ years) [facility] Start: 03-26-2023 Influenza vaccination Influenza Vaccine (#1) [facility] Start: 03-26-2021 Influenza vaccination Flu vaccine (Season Ended) [facility]: Start: 2013 Screening for malignant neoplasm of breast Breast cancer screen [facility]: Start: 2013 Screening for malignant neoplasm of colon Colon cancer screen colonoscopy [facility]: Start: 2013 Shingles (RZV) Vaccine (1 of 2) Shingles (RZV) Vaccine (1 of 2) [facility] Start: 2013 Shingles Vaccine (1 of 2) Shingles Vaccine (1 of 2) [facility]: Start: 2008 Cholesterol [Mass/volume] in Serum or Plasma Cholesterol [facility] Start: 2008 Screening for malignant neoplasm of colon [facility] Start: 2003 Lipid panel Lipid screen [facility]: Start: 2003 Screening for malignant neoplasm [...] 1975 COVID-19 Vaccine (1) COVID-19 Vaccine (1) [facility]: Start: 1965 COVID-19 Vaccine (#1) COVID-19 Vaccine (#1) [facility] Start: 1965 Hepatitis C screening Hepatitis C screen [facility]: Start: 1965 Screening for malignant neoplasm of colon Colonoscopy [facility] EKG 12 Lead EKG 12 Lead ECG Routine 01/13/2021 7:37 PM EDT [facility]: Payers Date Payer Category Payer Unknown 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 1965 Unknown [id number] 1963 Unknown [id number] 1963 Unknown [id number] 1963 Unknown [id number] 1963 Unknown [id number] 1963 Unknown [id number] 1965 Unknown [id number] 1959 Medicaid [id number] Social History Date Type Detail Facility Start: 01-13-2021 Tobacco smoking stat [facility] Never smoker [facility] Phone: Start: 01-13-2021 Tobacco use and exposure Never used [employer] Start: 01-13-2021 Alcohol intake Lifetime non-d melchor (finding) [employer] Work Phone: Start: 01-13-2021 History SDOH Alcohol Frequency 1 [facility] Phone: Start: 01-13-2021 Alcohol Comment occasional [employer] Work Phone: Start: 1965 Sex Assigned At Not on file M [employer] Work Phone: Exposure to SARS-CoV -2 (event) Not sure [employer] Sex Assigned At Female [facility] Tobacco smoking stat [facility] Tobacco smoking consumption unknown [facility] Clinical Notes 12-18-2021 to 09-10-2023 Note Date & Type Note Facility 09-10-2023 Note 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 Still gets intermittent skips . Denies chest pain, SOB, and lightheadedness/syncope. Review of Systems Cardiovascular: Positive for irregular heartbeat and palpitations. All other systems reviewed and are negative. [facility] 09-10-2023 Note Cardiovascular Medic [facility] SUBJECTIVE Sandro Severino is [...] Left lower l (more content not included)... [facility] 07-30-2023 Note Cardiovascular Medic [facility] SUBJECTIVE Sandro Severino is a 58 y.o. [...] Behavior: Behavior anna (more content not included)... [facility] 07-30-2023 Note Review of Systems Cardiovascular: Positive for palpitations. Palpitaions every now and then pt feels well Pt also started januvia and cymbolta [facility] 06-16-2023 Evaluation note Encounter Date Diagnosis [...] no improvement in 2 to 3 days [facility] 06-13-2023 NotePatient here for 1 mo [...] headaches. All other systems reviewed and are negative.[facility] 01-05-2023 NoteCardiovascular Medicine [facility] SUBJECTIVE Chief Complaint Patient presents with [...] hgbA1c - 8.4 Testing/Pr (more content not included)...[facility] 12-25-2022 Note[address]05-17-2023 Note Cardiovascular Medicine [facility] SUBJECTIVE Chief Complaint Patient presents with [...] home. She c/o feeli (more content not included)...[facility] 12-09-2022 NotePatient is here today for a 1 month follow up. Review of Systems Constitutional: Positive for decreased appetite and weight loss. Musculoskeletal: Positive for arthritis and back pain. Neurological: Positive for dizziness, headaches and loss of balance. All other systems reviewed and are negative.[facility] 10-30-2022 NoteCardiology Clinic Note Chief Complaint: [...] a past medical history of Diabetes mellitus ([facility]). Surgical History She has a past surgical [...] as needed Pacheco Burns MD Interventional Cardiology [facility]04-07-2023 NoteReview of Systems Cardiovascular: Positive for chest pain. Neurological: Positive for headaches. All other systems reviewed and are negative.[facility] 10-12-2022 NoteCARDIAC STRESS TEST Requesting Physician: [...] seen. EKG portion is negative for ischemia.[facility]* Encounter Date Diagnosis Assessment Notes [...] care provider if no improvement of symptoms [facility] 12-06-2022 Evaluation note* Encounter Date Diagnosis [...] other viral communicable diseases (ICD-10 - Z20.828) [facility] Other 05-26-2022 Evaluation note* Encounter Date Diagnosis Assessment Notes Treatment Notes Treatment Clinical Notes November, Cough (ICD-10 - R05.9) November, COVID-19 (ICD-10 - U07.1) Today you tested positive for the COVID virus. This mean you need to follow all CDC quarantine guidelines found at [email or web address] v. It is important to rest, increase [...] UP AND WHEN TO SEEK EMERGENCY TREATMENT [facility] Other Evaluation + Plan note No data available for this section [facility] Chest pain, unspecified type- Primary Anxiety state Anxiety state, unspecified documented in this encounter [facility] Phone: History general Narrative - Reported* Type Description Date Medical History Anxiety Medical History HTN (hypertension) Surgical History ablasion uterine [facility] Other History general Narrative - Reported* Type Description Date Medical History Anxiety Medical History HTN (hypertension) Surgical History ablasion uterine Hospitalization History Kidney Infection 1994 Hospitalization History chest pain 2022 [facility] Other Hospital Discharge instructions* Attachments The following attachments cannot be sent through Care Everywhere. * Chest Pain (Trinidadian) * Anxiety Disorder (Trinidadian) [facility] Work Phone: Hospital Discharge instructions No data available for this section [facility] Summary Purpose Family History No Family [...] Intravenous, IMG ONCE PRN, Other, Starting on 01/13/21 at 205, For 1 dose 2118 (Given - Provid er: Leonila Fernando) INFORMATION SOURCE (unrecogn ized section and content) DATE CREATED AUTHOR 01/14/2021 Mirian ashford DATE CREATED AUTHOR AUTHOR'S ORGANIZ ATION 02/11/2022 [facility] DATE CREATED AUTHOR AUTHOR'S ORGANIZ ATION 10/15/2022 [facility] DATE CREATED AUTHOR AUTHOR'S ORGANIZ ATION 09/12/2023 [facility] DATE CREATED AUTHOR AUTHOR'S ORGANIZ ATION 10/29/2023 [facility] DATE CREATED AUTHOR AUTHOR'S ORGANIZ ATION 11/20/2023 [facility] dical Specialists [facility] FOR RECORDS PERTAINING TO PATIENTS WHO ARE [...] BE BASED ON THE PRIMARY CLINICAL RECORDS. [facility] [employer] [facility]. provides no warranty or guarantee of the accuracy or completeness of information in this document.
--- NOTE | 2023-12-15 07:27 | US_ITS ---
The [address] [address] Patient Name: SANDRO STEELE MRN: [id number] date: 1965 Sex: F Assigned Patient Location: US Current Patient Location: [place] Accession/Order Number: [id number] Exam Date: 12/15/2023 07:30 Report Date: 12/15/2023 08:19 At the request of: MIRELLA FIELDS Procedure: US right upper quadrant EXAM: US right upper quadrant HISTORY: Elevated Liver Enzymes R74.8 COMPARISON: None. TECHNIQUE: Grayscale, color and Doppler FINDINGS: The liver is normal in size and contour measuring 17.4 cm in length. Identified in the left hepatic lobe is a 1.3 cm area of anechoic echogenicity with increased acoustic through transmission consistent with a simple cyst. Diffuse increase in hepatic echotexture. Hepatopedal flow identified in the main portal vein with velocity of 24 cm/s. The gallbladder is normal in size. The wall measures 2.1 mm, normal. Negative sonographic Beltre sign. The common bile duct measures 5.7 mm, normal. The visualized pancreas is normal The right kidney is normal measuring 11.1 x 5.6 x 5.5 cm. No solid mass or hydronephrosis No ascites US/US right upper quadrant IMPRESSION: Echogenic liver suggesting hepatic steatosis Electronically authenticated by: KAMERON PARSONS Date: 12/15/2023 08:19
== END 2023-12-15 07:23 | disposition home or self-care (01) ==
LOC: US 07:22
PROVIDERS: PCP Nurse Practitioner; Visit Provider Nurse Practitioner
DX: R74.8 Abnormal levels of other serum enzymes (principal)
CPT/HCPCS: 76705

== ENCOUNTER 2023-12-15 07:55 | Outpatient (OUT) | payer OTHER, SELFPAY ==
--- OUTSIDE RECORDS SUMMARY | 2023-12-15 08:15 | XMS_ITS | CCD ---
Author Organization [facility] Care Team Providers Care Trimmer Loader Name Role Phone Unavailable Primary Care Provider UnavailTITA Keenan Attending Unavailable MORALES ANGULO Primary Care Physician [phone] Siobhan Meyers Unavailable Cassandra Dumont Unavailable DR [...] / neomycin 3.5 mg/ml / polymyxin b 60040 unt/ml otic solution (1 source) Aminoglycoside Antibacterial, Polymyxin-class Antibacterial, Corticosteroid Start: 09-20-19 Ndjnjmyg-Yoykukzmo-UV 3.5-44389-1 4 drops into affected ear Otic Three [...] Nausea Episodic Other aftercare (1 source) 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 Amina Gann 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 Interface Message Text ----- Friday, September 15, 2023 at 11:18:51 AM ----- ----- Provider: [id number] - Resident Dayday -- Clinic: [place] ----- INITIAL/COMPREHENSIV E EXAM Patient presents for [...] 2023 at 11:23:03 AM ----- ----- Provider: [id number] - Pasquale Martin DDS -- Clinic: [place] ----- Normal [facility] [employer] [facility] Office Visiton 09-10-2023 Follow-up visit [id number] Sandro Severino 1965 F Date Provider Department Center 09/10/2023 [id number] BURNS Family History Problem Relation Age of Onset No Known Problems Mother No Known Problems Father No Known Problems Sister No Known Problems Brother Family Status - Relation Status Age at Mother Father Sister Brother Level of Service:10405 [place] OFFICE/OUTPATIENT ESTABLISHED LOW MDM [address] [facility] Office Visiton 01-05-2024 Follow-up visit [id number] Sandro Severino 1965 F Date Provider Department Center 07/30/2023 384PACHECO PHILLIPS [facility] No family history on file Level of Service:73182 [place] OFFICE/OUTPATIENT ESTABLISHED LOW MDM 20 MIN [facility] COVID/FLU RT-PCRon SARS-CoV-2 (COVID-19) RNA RIDGE+probe Ql (Unsp spec) Negative [facility] Other COVID/FLU RT-PCR Negative [employer] Other Office Visiton 01-05-2023 Follow-up visit [id number] Sandro Severino 1965 Date Provider Department Center 01/05/2023 TERESSA SOLOMON [facility] No family history on file Level of Service:49518 [place] OFFICE/OUTPATIENT ESTABLISHED LOW MDM 20-29 MIN Reason for Visit and Comments: Hypertension [939318] Normal [facility] 36on 12-24-2022 36 Her BP is more often running above goal. Would like to see her average BP running <130/90. We can either have her resume her losartan/hydrochloro thiazide or we can increase her carvedilol to 12.5mg BID. Normal [facility] Office Visiton 12-09-2022 Follow-up visit [id number] Sandro Severino 1965 Date Provider Department Center 12/09/2022 TERESSA SOLOMON [facility] No family history on file Level of Service:55517 [place] OFFICE/OUTPATIENT ESTABLISHED MOD MDM 30-39 MIN Reason for Visit and Comments: Follow-up [604050] - 1 mo. Follow up [facility] Office Visiton 10-30-2022 Follow-up visit [id number] Sandro Severino 1965 F Date Provider Department Center 10/30/2022 PACHECO GUILLORY [facility] No family history on file Level of Service:85983 [place] OFFICE/OUTPATIENT ESTABLISHED MOD MDM 30-39 MIN Reason for Visit and Comments: Chest Pain [546938] - f/u tbh hypertension chest pain pt states last night she was having some chest pain and headache last night Normal [facility] CBC AUTO DIFFon 10-13-2022 BASO # 0.1 103/ul Normal 0.0-0.1 [facility] Comment on above: Performed By: #### P OCGLUC #### [facility] [address] [address] [address] Gibson Jin Basophils/100 WBC (Bld) 1.0 % Normal 0.2-2.0 [facility] Comment on above: Performed By: #### P OCGLUC #### [facility] [address] [address] [address] Gibson Jin EO # 0.2 103/ul Normal 0.0-0.7 [facility] Comment on above: Performed By: #### P OCGLUC #### [facility] [address] [address] [address] Gibson Jin Eosinophils/100 WBC (Bld) 3.9 % Normal 0.9-7.0 [facility] Comment on above: Performed By: #### P OCGLUC #### [facility] [address] [address] [address] Gibson Jin Erythrocyte distribution width (RBC) [Ratio] 12.4 % Normal 11.0-15.0 [facility] Comment on above: Performed By: #### P OCGLUC #### [facility] [address] [address] [address] Gibson Jin Hematocrit (Bld) [Volume fraction] 43.4 % Normal 36.0-48.0 [facility] Comment on above: Performed By: #### P OCGLUC #### [facility] [address] [address] [address] Gibson Jin Hemoglobin (Bld) [Mass/Vol] 14.7 g/dL Normal 12.0-16.0 [facility] Comment on above: Performed By: #### P OCGLUC #### [facility] [address] [address] [address] Gibson Jin IG # 0.09 10e3/ul Critically high 0.00-0.03 [facility] Comment on above: Performed By: #### P OCGLUC #### [facility] [address] [address] [address] Gibson Jin IG % 1.5 % Critically high 0.0-0.5 [facility] Comment on above: Performed By: #### P OCGLUC #### [facility] [address] [address] [address] Gibson Jin LYMPH # 1.2 103/ul Normal 1.2-3.8 [facility] Comment on above: Performed By: #### P OCGLUC #### [facility] [address] [address] [address] Gibson Jin Lymphocytes/100 WBC (Bld) 19.4 % Critically low 20.5-60.0 [facility] Comment on above: Performed By: #### P OCGLUC #### [facility] [address] [address] [address] Gibson Jin MANUAL DIFF REQ NO Normal [facility] Comment on above: Performed By: #### P OCGLUC #### [facility] [address] [address] [address] Gibson Jin MCH (RBC) [Entitic mass] 30.2 pg Normal 26.7-34.0 [facility] Comment on above: Performed By: #### P OCGLUC #### [facility] [address] [address] [address] Gibson Jin MCHC (RBC) [Mass/Vol] 33.9 g/dL Normal 29.9-35.2 [facility] Comment on above: Performed By: #### P OCGLUC #### [facility] [address] [address] [address] Gibson Jin MCV (RBC) [Entitic vol] 89.1 fL Normal 81.0-99.0 [facility] Comment on above: Performed By: #### P OCGLUC #### [facility] [address] [address] [address] Gibson Jin MONO # 0.4 103/ul Normal 0.3-0.8 [facility] Comment on above: Performed By: #### P OCGLUC #### [facility] [address] [address] [address] Gibson Jin Monocytes/100 WBC (Bld) 6.9 % Normal 1.7-12.0 [facility] Comment on above: Performed By: #### P OCGLUC #### [facility] [address] [address] [address] Gibson Jin NEUT # 4.1 103/ul Normal 1.4-6.5 [facility] Comment on above: Performed By: #### P OCGLUC #### [facility] [address] [address] [address] Gibson Jin Neutrophils/100 WBC (Bld) 67.3 % Normal 43.0-75.0 [facility] Comment on above: Performed By: #### P OCGLUC #### [facility] [address] [place] [address] Dr. Gibson Jin Platelet mean volume (Bld) [Entitic vol] 10.3 fL Normal 9.5-13.5 [facility] Comment on above: Performed By: #### P OCGLUC #### [facility] [address] [address] [address] Gibson Jin PLT 273 103/ul Normal 150-450 [facility] Comment on above: Performed By: #### P OCGLUC #### [facility] [address] [address] [address] Gibson Jin RBC 4.87 106/ul Normal 4.20-5.40 [facility] Comment on above: Performed By: #### P OCGLUC #### [facility] [address] [place] [address] Dr. Gibson Jin WBC 6.1 103/ul Normal 4.0-11.0 [facility] Comment on above: Performed By: #### P OCGLUC #### [facility] [address] [place] [address] Dr. Gibson Jin ECHOCARDIO M/2D COMPLETEon 0 10-13-2022 ECHOCARDIO M/2D COMPLETE Patient: SANDRO SEVERINO Exam Date: 10/13/2022 : 1965 Gender:F Ordering : FELIBERTO TROTTER . Admission #: [id number] Family : Order #: [id number] CLICK HERE TO VIEW EXAM ECHOCARDIOGRAM REPORT [...] Mosquera M.D. on 10/13/2022 at 15:43 Normal [facility] GLYCOHEMOGLOBIN A1Con 2022 ADA RECOMMENDATION SEE BELOW Normal [facility] Comment on above: Result Comment: ADA RECOMMENDED LIMIT 4.0 - 6.0 ADA THERAPEUTIC TARGET < 7.0 ACTION SUGGESTED > 7.0 Performed By: #### A 1C #### [facility] [address] [place] [address] Dr. Gibson Jin Glucose [Mass/Vol] 197 mg/dL Normal [facility] Comment on above: Performed By: #### A 1C #### [facility] [address] [place] [address] Dr. Gibson Jin HbA1c (Bld) [Mass fraction] 8.5 % Critically high 4.5-6.2 [facility] Comment on above: Performed By: #### A 1C #### [facility] [address] [place] [address] Dr. Gibson Jin LIPID PROFILEon 10-13-2022 CHOL-HDL RATIO NORM SEE BELOW Normal [facility] Comment on above: Result Comment: 3.3 - 4.4 LOW RISK 4.4 - 7.1 AVERAGE RISK 7.1 - 11.0 MODERATE RISK >11.0 HIGH RISK Performed By: #### T SH, CMP, LIPID #### [facility] [address] [address] [address] Gibson Jin Cholesterol [Mass/Vol] 167 mg/dL Normal <=200 [facility] Comment on above: Performed By: #### T SH, CMP, LIPID #### [facility] [address] [address] [address] Gibson Jin Cholesterol in HDL [Mass/Vol] 45 mg/dL Normal 40-60 [facility] Comment on above: Performed By: #### T SH, CMP, LIPID #### [facility] [address] [place] [address] Dr. Gibson Jin Cholesterol in LDL [Mass/Vol] 93.4 mg/dL Normal [facility] Comment on above: Performed By: #### T SH, CMP, LIPID #### [facility] [address] [place] [address] Dr. Gibson Jin Cholesterol.total/Chol esterol in HDL [Mass ratio] 3.7 {ratio} Normal [facility] Comment on above: Performed By: #### T SH, CMP, LIPID #### [facility] [address] [address] [address] Gibson Jin HDL NORMAL > or = 60 mg/dl - LOW CARDIOVASCULAR RISK <40 mg/dl - HIGH CARDIOVASCULAR RISK Normal [facility] Comment on above: Performed By: #### T SH, CMP, LIPID #### [facility] [address] [place] [address] Dr. Gibson Jin LDL CALC NORMAL SEE BELOW Normal [facility] Comment on above: Result Comment: <100 mg/dl OPTIMAL 100 - 129 mg/dl NEAR OR ABOVE OPTIMAL 130 - 159 mg/dl BORDERLINE HIGH 160 - 189 mg/dl HIGH >190 mg/dl VERY HIGH Performed By: #### T SH, CMP, LIPID #### [facility] [address] [place] [address] Dr. Gibson Jin Triglyceride [Mass/Vol] 143 mg/dL Normal <=150 [facility] Comment on above: Performed By: #### T SH, CMP, LIPID #### [facility] [address], [place] [address] Dr. Gibson Jin VLDL CALC 28.6 mg/dL Normal [facility] Comment on above: Performed By: #### T SH, CMP, LIPID #### [facility] [address], [place] [address] Dr. Gibson Jin NM STRESS/REST MULTIon 10-13 NM STRESS/REST MULTI Patient: SANDRO SEVERINO Exam Date: 10/13/2022 : 1965 Gender:F Ordering : TERESSA [facility]OS [facility] Admission #: [id number] Family : FELIBERTO TROTTER . Order #: [id number] CLICK HERE TO VIEW EXAM RADIOLOGY REPORT [...] Winn M.D. on 10/13/2022 at 15:00 Normal [facility] POINT OF CARE GLUCOSEon 09-24 Glucose [Mass/Vol] 372 mg/dL Critically high 74-106 [facility] Comment on above: Performed By: #### P OCGLUC #### [facility] [address] [address] [address] Gibson Jin Glucose [Mass/Vol] 131 mg/dL Critically high 74-106 [facility] Comment on above: Performed By: #### P OCGLUC #### [facility] [address] [address] [address] Gibson Jin PROF 14(COMP METB)on 023 Albumin [Mass/Vol] 3.3 g/dL Critically low 3.4-5.0 [facility] Comment on above: Performed By: #### T SH, CMP, LIPID #### [facility] [address] [place] [address] Dr. Gibson Jin Albumin/Globulin [Mass ratio] 0.9 {ratio} Normal [facility] Comment on above: Performed By: #### T SH, CMP, LIPID #### [facility] [address] [address] [address] Gibson Jin ALP [Catalytic activity/Vol] 123 U/L Critically high 46-116 [facility] Comment on above: Performed By: #### T SH, CMP, LIPID #### [facility] [address] [place] [address] Dr. Gibson Jni ALT [Catalytic activity/Vol] 223 U/L Critically high 14-59 [facility] Comment on above: Performed By: #### T SH, CMP, LIPID #### [facility] [address] [address] [address] Gibson Jin Anion gap [Moles/Vol] 10.0 mmol/L Normal [facility] Comment on above: Performed By: #### T SH, CMP, LIPID #### [facility] [address] [address] [address] Gibson Jin AST [Catalytic activity/Vol] 113 U/L Critically high 15-37 [facility] Comment on above: Performed By: #### T SH, CMP, LIPID #### [facility] [address] [address] [address] Gibson Jin Bilirubin [Mass/Vol] 0.7 mg/dL Normal 0.2-1.0 [facility] Comment on above: Performed By: #### T SH, CMP, LIPID #### [facility] [address] [address] [address] Gibson Jin Calcium [Mass/Vol] 9.1 mg/dL Normal 8.5-10.1 [facility] Comment on above: Performed By: #### T SH, CMP, LIPID #### [facility] [address] [place] [address] Dr. Gibson Jin Chloride [Moles/Vol] 102 mmol/L Normal 98-107 [facility] Comment on above: Performed By: #### T SH, CMP, LIPID #### [facility] [address] [place] [address] Dr. Gibson Jin CO2 [Moles/Vol] 30.0 mmol/L Normal 21.0-32.0 [facility] Comment on above: Performed By: #### T SH, CMP, LIPID #### [facility] [address] [place] [address] Dr. Gibson Jin Creatinine [Mass/Vol] 0.73 mg/dL Normal 0.55-1.02 [facility] Comment on above: Performed By: #### T SH, CMP, LIPID #### [facility] [address] [place] [address] Dr. Gibson Jin EGFR-AF SWAZI >60 Normal >=60 [facility] [place] [facility] Comment on above: Performed By: #### T SH, CMP, LIPID #### [facility] [address] [place] [address] Dr. Gibson Jin EGFR-NON AF SWAZI >60 Normal >=60 [facility] Comment on above: Performed By: #### T SH, CMP, LIPID #### [facility] [address] [place] [address] Dr. Gibson Jin Globulin (S) [Mass/Vol] 3.5 g/dL Normal [facility] Comment on above: Performed By: #### T SH, CMP, LIPID #### [facility] [address] [place] [address] Dr. Gibson Jin Glucose [Mass/Vol] 165 mg/dL Critically high 74-106 [facility] Comment on above: Performed By: #### T SH, CMP, LIPID #### [facility] [address] [place] [address] Dr. Gibson Jin Potassium [Moles/Vol] 4.0 mmol/L Normal 3.5-5.1 [facility] Comment on above: Performed By: #### T SH, CMP, LIPID #### [facility] [address] [place] [address] Dr. Gibson Jin Protein [Mass/Vol] 6.8 g/dL Normal 6.4-8.2 [facility] Comment on above: Performed By: #### T SH, CMP, LIPID #### [facility] [address] [place] [address] Dr. Gibson Jin Sodium [Moles/Vol] 138 mmol/L Normal 136-145 [facility] Comment on above: Performed By: #### T SH, CMP, LIPID #### [facility] [address] [place] [address] Dr. Gibson Jin Urea nitrogen [Mass/Vol] 14.0 mg/dL Normal 7.0-18.0 [facility] Comment on above: Performed By: #### T SH, CMP, LIPID #### [facility] [address] [place] [address] Dr. Gibson Jin Urea nitrogen/Creatinine [Mass ratio] 19.2 mg/mg Normal [facility] Comment on above: Performed By: #### T SH, CMP, LIPID #### [facility] [address] [place] [address] Dr. Gibson Jin TSHon 10-13-2022 TSH 3.011 uIU/mL Normal 0.358-3.740 [facility] Comment on above: Performed By: #### T SH, CMP, LIPID #### [facility] [address] [place] [address] Dr. Gibson Jin US SINGLE QUAD RT [...] DELL WINN Date: 2022-10-13 13:22 Normal [facility] CBC AUTO DIFFon 10-12-2022 BASO # 0.1 103/ul Normal 0.0-0.1 [facility] Comment on above: Performed By: #### C BC #### [facility] [address] [address] [address] Gibson Jin Basophils/100 WBC (Bld) 1.0 % Normal 0.2-2.0 [facility] Comment on above: Performed By: #### C BC #### [facility] [address] [address] [address] Gibson Jin EO # 0.2 103/ul Normal 0.0-0.7 [facility] Comment on above: Performed By: #### C BC #### [facility] [address] [address] [address] Gibson Jin Eosinophils/100 WBC (Bld) 2.2 % Normal 0.9-7.0 [facility] Comment on above: Performed By: #### C BC #### [facility] [address] [place] [address] Dr. Gibson Jin Erythrocyte distribution width (RBC) [Ratio] 12.1 % Normal 11.0-15.0 [facility] Comment on above: Performed By: #### C BC #### [facility] [address] [place] [address] Dr. Gibson Jin Hematocrit (Bld) [Volume fraction] 43.1 % Normal 36.0-48.0 [facility] Comment on above: Performed By: #### C BC #### [facility] [address] [place] [address] Dr. Gibson Jin Hemoglobin (Bld) [Mass/Vol] 15.1 g/dL Normal 12.0-16.0 [facility] Comment on above: Performed By: #### C BC #### [facility] [address] [place] [address] Dr. Gibson Jin IG # 0.06 10e3/ul Critically high 0.00-0.03 [facility] Comment on above: Performed By: #### C BC #### [facility] [address] [place] [address] Dr. Gibson Jin IG % 0.8 % Critically high 0.0-0.5 [facility] Comment on above: Performed By: #### C BC #### [facility] [address] [place] [address] Dr. Gibson Jin LYMPH # 1.5 103/ul Normal 1.2-3.8 [facility] Comment on above: Performed By: #### C BC #### [facility] [address] [place] [address] Dr. Gibson Jin Lymphocytes/100 WBC (Bld) 20.1 % Critically low 20.5-60.0 [facility] Comment on above: Performed By: #### C BC #### [facility] [address] [place] [address] Dr. Gibson Jin MANUAL DIFF REQ NO Normal [facility] Comment on above: Performed By: #### C BC #### [facility] [address] [place] [address] Dr. Gibson Jin MCH (RBC) [Entitic mass] 30.6 pg Normal 26.7-34.0 [facility] Comment on above: Performed By: #### C BC #### [facility] [address] [address] [address] Gibson Jin MCHC (RBC) [Mass/Vol] 35.0 g/dL Normal 29.9-35.2 [facility] Comment on above: Performed By: #### C BC #### [facility] [address] [address] [address] Gibson Jin MCV (RBC) [Entitic vol] 87.2 fL Normal 81.0-99.0 [facility] Comment on above: Performed By: #### C BC #### [facility] [address] [place] [address] Dr. Gibson Jin MONO # 0.5 103/ul Normal 0.3-0.8 [facility] Comment on above: Performed By: #### C BC #### [facility] [address] [place] [address] Dr. Gibson Jin Monocytes/100 WBC (Bld) 6.5 % Normal 1.7-12.0 [facility] Comment on above: Performed By: #### C BC #### [facility] [address] [place] [address] Dr. Gibson Jin NEUT # 5.0 103/ul Normal 1.4-6.5 [facility] Comment on above: Performed By: #### C BC #### [facility] [address] [place] [address] Dr. Gibson Jin Neutrophils/100 WBC (Bld) 69.4 % Normal 43.0-75.0 [facility] Comment on above: Performed By: #### C BC #### [facility] [address] [place] [address] Dr. Gibson Jin Platelet mean volume (Bld) [Entitic vol] 10.6 fL Normal 9.5-13.5 [facility] Comment on above: Performed By: #### C BC #### [facility] [address] [place] [address] Dr. Gibson Jin PLT 281 103/ul Normal 150-450 [facility] Comment on above: Performed By: #### C BC #### [facility] [address] [place] [address] Dr. Gibson Jin RBC 4.94 106/ul Normal 4.20-5.40 [facility] Comment on above: Performed By: #### C BC #### [facility] [address] [place] [address] Dr. Gibson Jin WBC 7.3 103/ul Normal 4.0-11.0 [facility] Comment on above: Performed By: #### C BC #### [facility] [address] [place] [address] Dr. Gibson Jin Covid-19 PCR ([facility])on 09-24 SARS-CoV-2 (COVID-19) RNA RIDGE+probe Ql (Unsp spec) Not detected Normal NOT DETECTED [facility] Comment on above: Result Comment: When [...] for this test is supported by the [place] of Health and Human Service's declaration that [...] used). Performed By: #### P OCGLUC #### [facility] [address] [place] [address] Dr. Gibson Jin D-DIMERon 10-12-2022 D-DIMER 0.34 mg/L FEU Normal <=0.59 The [facility] Comment on above: Performed By: #### P OCGLUC #### [facility] [address] [place] [address] Dr. Gibson Jin D-DIMER COMMENTS SEE BELOW [...] hospitalization. Performed By: #### P OCGLUC #### [facility] [address] [place] [address] Dr. Gibson Jin DRUG SCREEN RAPID (URINE)on 10-12-2022 AMP Negative Normal NEGATIVE [facility] Comment on above: Performed By: #### P OCGLUC #### [facility] [address] [place] [address] Dr. Gibson Jin BAR Negative Normal NEGATIVE [facility] Comment on above: Performed By: #### P OCGLUC #### [facility] [address] [place] [address] Dr. Gibson Jin BUP Negative Normal NEGATIVE [facility] Comment on above: Performed By: #### P OCGLUC #### [facility] [address] [place] [address] Dr. Gibson Jin BZO Negative Normal NEGATIVE [facility] Comment on above: Performed By: #### P OCGLUC #### [facility] [address] [place] [address] Dr. Gibson Jin CANDACE Negative Normal NEGATIVE [facility] Comment on above: Performed By: #### P OCGLUC #### [facility] [address] [place] [address] Dr. Gibson Jin CUT-OFFS SEE BELOW Normal [facility] Comment on above: Result Comment: AMP [...] ng/mL Performed By: #### P OCGLUC #### [facility] [address] [place] [address] Dr. Gibson Jin DRUG CUT HEADER DRUG CLASS TEST SYSTEM CUT-OFF CONCENTRATIONS ARE FOLLOWS: Normal [facility] Comment on above: Performed By: #### P OCGLUC #### [facility] [address] [place] [address] Dr. Gibson Jin mAMP Negative Normal NEGATIVE [facility] Comment on above: Performed By: #### P OCGLUC #### [facility] [address] [place] [address] Dr. Gibson Jni MTD Negative Normal NEGATIVE [facility] Comment on above: Performed By: #### P OCGLUC #### [facility] [address] [place] [address] Dr. Gibson Jin OPI Positive Abnormal NEGATIVE [facility] Comment on above: Performed By: #### P OCGLUC #### [facility] [address] [place] [address] Dr. Gibson Jin OXY Negative Normal NEGATIVE [facility] Comment on above: Performed By: #### P OCGLUC #### [facility] [address] [place] [address] Dr. Gibson Jin PCP Negative Normal NEGATIVE [facility] Comment on above: Performed By: #### P OCGLUC #### [facility] [address] [place] [address] Dr. Gibson Jin PPX Negative Normal NEGATIVE [facility] Comment on above: Performed By: #### P OCGLUC #### [facility] [address] [place] [address] Dr. Gibson Jin TCA Negative Normal NEGATIVE [facility] Comment on above: Performed By: #### P OCGLUC #### [facility] [address] [place] [address] Dr. Gibson Jin THC Negative Normal NEGATIVE [facility] Comment on above: Performed By: #### P OCGLUC #### [facility] [address] [place] [address] Dr. Gibson Jin POINT OF CARE GLUCOSEon 09-24 Glucose [Mass/Vol] 220 mg/dL Critically high 74-106 [facility] Comment on above: Performed By: #### P OCGLUC #### [facility] [address] [address] [address] Gibson Jin Glucose [Mass/Vol] 298 mg/dL Critically high 74-106 [facility] Comment on above: Performed By: #### P OCGLUC #### [facility] [address] [place] [address] Dr. Gibson Jin PROF 14(COMP METB)on 023 Albumin [Mass/Vol] 3.7 g/dL Normal 3.4-5.0 [facility] Comment on above: Performed By: #### C KARLIE, HSTROPN #### [facility] [address] [place] [address] Dr. Gibson Jin Albumin/Globulin [Mass ratio] 1.0 {ratio} Normal [facility] Comment on above: Performed By: #### C KARLIE, HSTROPN #### [facility] [address] [place] [address] Dr. Gibson Jin ALP [Catalytic activity/Vol] 175 U/L Critically high 46-116 [facility] Comment on above: Performed By: #### C KARLIE, HSTROPN #### [facility] [address] [place] [address] Dr. Gibson Jin ALT [Catalytic activity/Vol] 167 U/L Critically high 14-59 [facility] Comment on above: Performed By: #### C KARLIE, HSTROPN #### [facility] [address] [place] [address] Dr. Gibson Jin Anion gap [Moles/Vol] 10.6 mmol/L Normal [facility] Comment on above: Performed By: #### C KARLIE, HSTROPN #### [facility] [address] [address] [address] Gibson Jin AST [Catalytic activity/Vol] 49 U/L Critically high 15-37 [facility] Comment on above: Performed By: #### C MP, HSTROPN #### [facility] [address] [address] [address] Gibson Jin Bilirubin [Mass/Vol] 0.4 mg/dL Normal 0.2-1.0 [facility] Comment on above: Performed By: #### C MP, HSTROPN #### [facility] [address] [address] [address] Gibson Jin Calcium [Mass/Vol] 9.1 mg/dL Normal 8.5-10.1 [facility] Comment on above: Performed By: #### C MP, HSTROPN #### [facility] [address] [place] [address] Dr. Gibson Jin Chloride [Moles/Vol] 102 mmol/L Normal 98-107 [facility] Comment on above: Performed By: #### C MP, HSTROPN #### [facility] [address] [address] [address] Gibson Jin CO2 [Moles/Vol] 26.8 mmol/L Normal 21.0-32.0 [facility] Comment on above: Performed By: #### C MP, HSTROPN #### [facility] [address] [address] [address] Gibson Jin Creatinine [Mass/Vol] 0.90 mg/dL Normal 0.55-1.02 [facility] Comment on above: Performed By: #### C MP, HSTROPN #### [facility] [address] [address] [address] Gibson Jin EGFR-AF SWAZI >60 Normal >=60 [facility] Comment on above: Performed By: #### C MP, HSTROPN #### [facility] [address] [address] [address] Gibson Jin EGFR-NON AF SWAZI >60 Normal >=60 [facility] Comment on above: Performed By: #### C MP, HSTROPN #### [facility] [address] [address] [address] Gibson Jin Globulin (S) [Mass/Vol] 3.6 g/dL Normal [facility] Comment on above: Performed By: #### C MP, HSTROPN #### [facility] [address] [address] [address] Gibson Jin Glucose [Mass/Vol] 288 mg/dL Critically high 74-106 [facility] Comment on above: Performed By: #### C MP, HSTROPN #### [facility] [address] [address] [address] Gibson Jin Potassium [Moles/Vol] 3.4 mmol/L Critically low 3.5-5.1 [facility] Comment on above: Performed By: #### C MP, HSTROPN #### [facility] [address] [place] [address] Dr. Gibson Jin Protein [Mass/Vol] 7.3 g/dL Normal 6.4-8.2 [facility] Comment on above: Performed By: #### C MP, HSTROPN #### [facility] [address] [place] [address] Dr. Gibson Jin Sodium [Moles/Vol] 136 mmol/L Normal 136-145 [facility] Comment on above: Performed By: #### C MP, HSTROPN #### [facility] [address] [address] [address] Gibson Jin Urea nitrogen [Mass/Vol] 13.0 mg/dL Normal 7.0-18.0 [facility] Comment on above: Performed By: #### C MP, HSTROPN #### [facility] [address] [place] [address] Dr. Gibson Jin Urea nitrogen/Creatinine [Mass ratio] 14.4 mg/mg Normal [facility] Comment on above: Performed By: #### C MP, HSTROPN #### [facility] [address] [address] [address] Gibson Jin TROPONIN, HIGH SENSITIVITYon 10-12-2022 HSTROP <4.0 Normal 4.0-51.3 [facility] Comment on above: Result Comment: CUT- OFF POINTS HAVE BEEN ESTABLISHED BASED ON THE FOURTH UNIVERSAL DEFINITIONS OF MYOCARDIAL INFARCTION. THE UPPER REFERENCE LIMIT (URL) OF TROPONIN, DEFINED THE 99TH PERCENTILE OF cTnI DISTRIBUTION IN A REFERENCE POPULATION, HAS BEEN CONFIRMED THE DECISION THRESHOLD FOR SC DIAGNOSIS. Performed By: #### P OCGLUC #### [facility] [address] [address] [address] Gibson Jin HSTROP <4.0 Normal 4.0-51.3 [facility] Comment on above: Result Comment: CUT- OFF POINTS HAVE BEEN ESTABLISHED BASED ON THE FOURTH UNIVERSAL DEFINITIONS OF MYOCARDIAL INFARCTION. THE UPPER REFERENCE LIMIT (URL) OF TROPONIN, DEFINED THE 99TH PERCENTILE OF cTnI DISTRIBUTION IN A REFERENCE POPULATION, HAS BEEN CONFIRMED THE DECISION THRESHOLD FOR SC DIAGNOSIS. Performed By: #### C MP, HSTROPN #### [facility] [address] [address] [address] Gibson Jin XR CHEST 1 Von [...] by: DELL WINN Date: 2022-10-12 10:36 Normal [facility] COVID + FLU Quick Testingon 09-20-2022 SARS-CoV-2 (COVID-19) RNA RIDGE+probe Ql (Unsp spec) Negative [facility] Other COVID + FLU Quick Testing Negative [facility] Other Quick Strepon 09-20-2022 S. pyogenes Org specific cx Ql (Throat) Negative [facility] Other Quick Strep [facility] Other COVID/FLU/RSV RT-PCRon 06-30 SARS-CoV-2 (COVID-19) RNA RIDGE+probe Ql (Unsp spec) Negative [facility] Other COVID/FLU/RSV RT-PCR Negative [facility] [employer] Other Registrationon 02-04-2022 Registration [id number]# 1.00CD:127 [facility] 01-09-2022 Consent [id number] #1.00CD:127 [facility] COVID/FLU RT-PCRon SARS-CoV-2 (COVID-19) RNA RIDGE+probe Ql (Unsp spec) Positive [facility] Other COVID/FLU RT-PCR Negative [facility] Other Coding Summary.on 08-04-2021 Coding Summary. CD:[id number] Gh0bWw+PGhlYWQ+PE1FV ENlN18ooHGnlU6YR9lAM E2GEVCSNGLLAY3MCF7xs FR8OJghX1GkqeGe UddjrPFrNJ67GPr6CBW4 xLogWKywdO5tjTXlE5q5 TnJfQH05zV20LBzkRTVc GvP3GeYmxalddKXe N1qePcWbcTFiHuz+PHRh YmxlIHdpZHRoPScxMDAl SsCjiPvbLA9lRq6eOKKk LWNvbGxhcHNlOiBj e8xwHSXvDBnhAZ5qhIpu Y5TgrQD9PGCwt5r5Ll78 dHI+KUCkSNQ6vRfnSOcc v729TgCiu9eyNAO7 rUNhYCtfHGD2I90cf6C7 CLSzNYWxEPO0fEC3wF3e vDuakqzvJ2IreZWfHpG1 UOI8aXYkkM3vzVyb jycmjU3gGva+R11QIP1L VTYILH8FQuj2T1WsDgbb dHI+JR93QAKcVO02nOIt mDFzt9obvWq4DcRj NZVdLEJ5vXtmKAlpt3Rl TENtW14clDSfq5I8ITPq vVuafBPrJnNpqEG3cX6z CJgtniqot4mtvgya Gqnfb1pmiz80kR10L99l KKalPFJiKFX8QICwHMHy rCssay6dmD8bZr8+IDxj z0atk2jnsRj3WnBr WTTicrVmqTntMUZ8v4Ko Yn25T2FlqNeyf9EiLyc8 gu86gRZfl2O2jHI8ZSdv NAOurT1qHGmrYvF6 WTKdRbRtvZ44cSQrMMqa Qv3ieYbglXjqWM2rZEGe njmxLIZtkN3vGVRjhBVa sYddHO5kEXGpclbt y587ApKuXKL1FGWhrPBa U4OuvB6tPgFgXDJxEOGl A0YcbGJzFRknY115BNpf YlS7CTMfzaKaI2Xs TYOvqBnlVqH1r4V8Ew7S a8MgwcnqXJJ1HWycSXEk ShMyKjRbHdX9W7WjFva4 BCSigEwaBJ7iB8Ht ELDqwshhvnieaNZ9QAEd FQSlfH36kHPxJJzrSd3w b2Q2t317SSXxOBYtgV61 Oj7bdSraXOKpgZUL gR5bzubba1zljegzUmQa OSKsFDo1UIl5JIVgySpr EzDbEJH5TjJ9TII0aTYk qN1lgUywkpehdO7y Oyc+Q57wnQ7sLTY6JGH3 mhnjRAYpaiTeDW18WF96 H2XhRhhcpENgpQW+PGRp vwToyWsxJP1xPaPe l8mws5UxBKxdO7RnSNEk JRujBfn3ZMDcGAT0nJQ4 vW1gVSYyYPhph9T5hXO1 Q2CjprLikz0hr8nh VROjRJyaB81msIVjc1K4 AJWcvXR0ZCOqoSntCsCm fE76Bjs+CAAxhJbax9Vs Iwnzm5klb2dfkGo1 IjMwJSIgdmFsaWduPSJ0 e1YzNi38U45mJJnaRTVk WCLtLCCcUFImgVjwqw8v kN2kIr9+PGNvbCB3 tWL1dX5iQYWgCgP9LMzk K252HpWveIUrSjbwp7ka l0tpyOk1WsNlHPDhnuIr tTxkAML4r8JtFb30 G48xTJouJIBsDSGpNYCf NCMlrSyegn0avY7xQk9+ DC2od8wrte60eA49hMJ+ NLWqBFD4jTiyWIys ARVwgS0zDLzcStI3XBWt BgHonM04eUYhKRuiAd1f tFppcBzvDZ1lCVHvaduh s999VgGqy8ufDRGv dIDmCHhwXTH2I01kq4B3 YBCxMCBgPRS3vJP1qA3q bGlnbjogbGVmdDsgdmVy aSlnRWkkEJqjT560 IHRvcDsnPlBhdGllbnQg ClHrDDk8Z4FkFvh4DYVr uYhbOG1wlFNjWTfvRh5p nEaowIcmFW3uZPJw mwono464WwCuy5wwYQQo pLZpGMikAZL2D12kl4T7 SCLxWVGnTAA1uAO5nR5o bGlnbjogbGVmdDsg gqNxkDkrGQmvTDksR194 IHRvcDsnPkJpcnRoIERh qBC7GJ19OQ36nKAbl4X7 sYH3O2TzTVOlmehg dadrpBT1YXZlOMIenM53 Qq9gjGajMx7sOWObPKD9 PCMptNUhR0GoeR9wScUo HOQaXSSrU6GjaVWj TCgyR885PAfiNcC3KEFd srHcH1KvANFtlYknZhZ0 l0R7Sz9ZU5Q8AD13TU81 rAUmk5L0dUV7A9Cb KUXetdwqdqlzhGG8LXDx VAUfgS76Zz1jrDavZw9y IBNiYTU0IGOizOQnI2Wv jZ4vTeVvNSFbRJQc U1KfpEUmEKdjS878XMxf LxM6OOZjgqIrO1FlBYMf lQilLiN8j4F6Kl5TLKq9 BM62EL04mRRfw9Q4 lDY4Z7YyTYVmbmdwjlgz eKS0ZOMnUODflX70Do3o iMccXp7vFXCvYMY1SCMu tIRpJ8XmeF4hIkCj SMMpEMBmY9EkzLGuIHbk Y262LDrqEnS2EQOrsdWm L7PhZASzhLcuJrW8a8C5 Ur7JOTHwZQ68FOL2 cQC0DQ48RT21D5PjErio dGFibGU+PHRhYmxlIHdp ZHRoPScxMDAlJyBzdHls BQ6kKx1lZHXtRXOq qFtoqMGvIlQnl7mjTOTz WImqSF9thJhtL1HcwCF0 VGZpp1i5Rc75J02wK2Zc dXA+CKZomSS7hMT1 gI6xJkNlBpC0ANeoD805 KySvqFMlAwfmo6xqi0yq aRf5AhP8URLmmaDcdXeq MWX4u6TzJl96X96x IHdpZHRoPSIxNSUiIHZh dIxozu7pzB2vKa4+PGNv lFN4bXG3bZ1mUvSiWtN4 FLgcB333EgUmhNRz Piscs8rqa7pxeNi7YeMw LBDltuWjzTgyFKP1p5Cr In57D1RjlUuih7ZqIfe0 ph62bDRaq1N1vAG9 P7OnAISnxwvtgDKnnXsi PE2oDPLzchufWPAmxJ0q MDOfB3i8TvEiZxE4PEvw Y9SmqdK9TBDxbRHe ULgwPTJ3P08fb6Z3QZFm ZHDhZFP7iIF5gB2hyEri bjogbGVmdDsgdmVydGlj POcpJQxgT201BUJm zNxiLKRpeU5nUFXzdZJb xRbbTB0sTTOtruzjWbmK UkNJQSwgTUFSSUEgRDwv dGQ+ZJPcEOT0uBqv GXlyBMNxqH4fBOReM0n9 QqVlXtD9VRjbJ9UjAGWn dlqdGt25xZ4eOaThHoF8 RPriL9HqamW7HFIf yWWlPPfsOEX1U87ux7M8 CXVaGEWoVDN0oWQ5mP8i bGlnbjogbGVmdDsgdmVy aCfsGKdcFHnoN197 EHVxnLzqIbOcKfT9XdA4 VnT4X0HeOug4LTZwjGlh VM6nmBLfCZoqQc3prYul mWbtCJ7aZOGzufel RRNntZ1cGRAcdIGpcXst EZ8mMOKijvupb187JkQv NWL7VSLujBKmH7WjeK7p LnVqGWWfJNCpQ4Fy aNFwFBkcF435ENjcNxK7 PPPbygEmN0DiCFMpkQts WzC6o3G1Hi91BKEJDZNa czwvdGQ+PHRkIHN0 gKpwKPlzVHFylV6uMYZx B5o4BmUaOjV5KMlaL5Eg LBSmjamcMs28wU0cNoTo WaG7PFfaJ8PgbwN2 ZWCmrKXeUHqwOUR5I12q n1T6LCQnWHSpJAT0uCX6 eV6rpXzvgighpDDxrTxr dmVydGljYWwtYWxp R828UPSsdSsfVuNrnXLn ZTwvdGQ+HDGpBMC7lUjg OHqvILQnkU4pQDSyZ9p5 IfOtQxC1UXjkX9Wa WLTuroxdBx65nL0uJsYl RtS7NAytT4MqfvX1JUUh qKHyLHmwUGZ5S48aa4U2 OEZgQGJwXPF2bFP5 wB2jeCyzhpwwdTRkkCiz xnDmcJxvEUziWUtqB515 CHQiiHguPjQkK7Zbdpsp ZzwvdGQ+AO44vw66 S5MmJnddLwg4SLIjYBX2 fDE5pR4xKBRgETydf4O5 zBB9K4DzjcPwrs1vo2kn TDUrPQdtO88ijFVr e8Z1QPIbrVB3LLQhqCdj MlLvyB19Pvs+PGNvbGdy p8MzNzdrc6cts2qkdMt6 IjMwJSIgdmFsaWdu SRC1f6OoJi90J94hEXzg ZHRoPSIzMCUiIHZhbGln bl2fzJ2zUg9+PGNvbCB3 vSS1hS8pZjWkMvV1 DSqrA250MgNxrVGxFnvz a2jil7gscHt9YmVmOZAh tsEiwLywSYA9p0XjTw15 R4PhrBvng0VmExn4 qc16sSQgj4S9lMB9X6Fw YDMtkosucEAinDfxWS2g OXQsualjQFIyfC4sKWVg A1c3MtRwQpM6XWsx H2FlytA7VZUssNQuQLIk kSFVhR1uqcsax8pzuziy WgSgENGvBOj6FQe4AAGt tIeiFvUyKJV9VfG0 XEX7lBRysA2etKgaxjrg fU7gMck+KOh5p0kcmFNn XF0ezMN5BW83EP27uEVd i9Q8fXZ1F6BeGKXd jchciqpfkRQ5HBIcMJAb sL37Xc9fwYtxWe7hEIPd SOR5BYWjmOUyX3IkbN8a AeIxPEMkLMRvU7Ma dHArCWdkN171EDptGbH6 ESXjatRuZ6UfEQDriBzp YlH6j2I9Jh6NXC86SL28 RZ82mYOew8O4lII4 I4ZePHXdgvpyvjfjqHW2 TOFwAEMfiP73Hx8hsIkr Kw7cKHGmYHS5DMLddDSt D6TfpV8wLiKdXOPx PABtI9ZonVCjQPybV478 PInnMdG0HSUmhnQxS8Dr WZQnwRgiDmY6g1G6Ls3K Hw42MG76VP65yYNh s8I0sCM5U4KfNVWeyjnk jiiblCQ3XKXmYIZocK68 Ok0wuHbwIt9pVMPlEDR8 PYXqpYUwV5NqeB5x KhJoKTKtQJIeH6DodPZs LMwcR490TCdfMwO8YVNa rxKeN3WvDRVldApaWhA7 k4W5Es8LHIxuhrm8 X4OiWxrmmVJ+TD39GDOo BA73aHPjeQEgz9apmHi4 YkQxEOGbWMI1rRepJIgf z7QgIGVeH31qmHOi c2U6 (more content not included)... Normal [facility] Consent for Treatmenton Consent for Treatment [id number]#1.00CD:127 Normal [facility] COVID-19 ([facility])on 08-01-2021 SARS-CoV-2 (COVID-19) RNA RIDGE+probe Ql (Resp) Not detected Normal Not Detected [facility] Comment on above: Result Comment: This test result should be correlated with clinical presentations and medical history by a healthcare provider to determine its clinical significance. This assay was performed by a reverse transcriptase real-time polymerase chain reaction (rt PCR) method on the [employer] system. This test has been authorized only [...] or revoked sooner. Performed By: #### 2 [id number] #### [facility] [address] [place] [address] SARS-CoV-2 (COVID-19) RNA RIDGE+probe Ql (Unsp spec) Pass Normal Pass [facility] Comment on above: Performed By: #### 2 [id number] #### [facility] [address] [place] [address] Specimen source Nom (Unsp spec) Nasal Normal [facility] Comment on above: Performed By: #### 2 [id number] #### [facility] [address] [place] [address] [place] [place]21 ADMITTED TO INTENSIVE CARE UNIT FOR CONDITION OF INTEREST:FIND:PT: Unknown Normal [facility] Comment on above: Performed By: #### 2 [id number] #### [facility] [address] [place] [address] EMPLOYED IN A HEALTHCARE SETTING:FIND:PT: Unknown Normal [facility] Comment on above: Performed By: #### 2 [id number] #### [facility] [address] [place] [address] FIRST TEST FOR CONDITION OF INTEREST:FIND:PT: Unknown Normal [facility] Comment on above: Performed By: #### 2 [id number] #### [facility] [address] [place] [address] HAS SYMPTOMS RELATED TO CONDITION OF INTEREST:FIND:PT: Unknown Normal [facility] Comment on above: Performed By: #### 2 [id number] #### [facility] [address] [place] [address] HOSPITALIZED FOR CONDITION OF INTEREST:FIND:PT: Unknown Normal [facility] Comment on above: Performed By: #### 2 [id number] #### [facility] [address] [place] [address] STATUS:FIND:PT: Unknown Normal [facility] Comment on above: Performed By: #### 2 [id number] #### [facility] [address] [place] [address] RESIDES IN A CONGREGATE CARE SETTING:FIND:PT: Unknown Normal [facility] Comment on above: Performed By: #### 2 [id number] #### [facility] [address] [place] [address] CTA CHEST W CONTRASTon 01-14 CTA CHEST [...] Kwabena Peña MD 01/13/21 Final result Normal [facility] CBC Auto DifferentialOrdered By: Tita Edwards on 01-13-2021 [employer] # 0.10 [facility] th Work Phone: Absolute Immature Granulocyte NOT REPORTED [facility] Phone: [facility] Lymph # 0.80 [facility] Work Phone: [facility] Karnes # 0.50 [facility] Work Phone: Basophils (Bld) [#/Vol] 0.00 10*3/uL [facility] Work Phone: Basophils/100 WBC (Bld) 0 % 0 - 2 % [facility] Work Phone: Differential Type YES [facility] Work Phone: Eosinophils/100 WBC (Bld) 1 % 0 - 5 % [employer] Phone: Hematocrit (Bld) [Volume fraction] 42.0 % 36 - 46 % [facility]P Work Phone: Hemoglobin.gastrointes tinal spec 1 Ql (Stl) 14.3 g/dL 12.0 - 16.0 g/dL [employer] Phone: Immature Granulocytes NOT REPORTED 0 % [employer] Phone: Interpretation and review of laboratory results Abnormal [employer] Phone: Lymphocytes/100 WBC (Bld) 11 % Low 15 - 40 % [facility] Work Phone: MCH (RBC) [Entitic mass] 29.5 pg 26 - 34 pg [facility]P Work Phone: MCHC (RBC) [Mass/Vol] 34.1 g/dL 31 - 37 g/dL [employer] Phone: MCV (RBC) [Entitic vol] 86.5 fL 80 - 100 fL [employer] Phone: Monocytes/100 WBC (Bld) 7 % 4 - 8 % [employer] Phone: NRBC Automated NOT REPORTED per 100 WBC [employer] Work Phone: Platelet distribution width (Bld) [Ratio] 13.3 % 12.1 - 15.2 % [employer] Phone: Platelet Estimate NOT REPORTED [employer] Phone: Platelet mean volume (Bld) [Entitic vol] NOT REPORTED 6.0 - 12.0 fL [employer] Phone: Platelets (Bld) [#/Vol] 340 10*3/uL [employer] Phone: RBC (Bld) [#/Vol] 4.86 10*6/uL 4.0 - 5.2 m/uL [employer] Phone: RBC (Bld) [#/Vol] NOT REPORTED [employer] Phone: Segmented neutrophils/100 WBC (Bld) 81 % High 47 - 75 % [employer] Phone: Segs Absolute 6.30 [employer] Work Phone: WBC (Bld) [#/Vol] 7.8 10*3/uL [employer] Phone: WBC (Bld) [#/Vol] NOT REPORTED [employer] Phone: [employer] Phone: CBC with Diffon 01-13-2021 Abs. Basophil 0.00 k/uL Normal 0.0-0.2 [facility] Comment on above: Performed By: #### D DRE NARANJO, AMANDA #### [facility] [address] [place] [place] [address] Nightman: Flash Jaramillo MD Abs.Neutrophil (Seg) 6.30 k/uL Normal 2.5-7.0 [facility] Comment on above: Performed By: #### D JOSE A CDP, REJEC #### [facility] [address] [id number] Nightman: Flash Jaramillo MD Auto Diff Performed YES Normal [facility] Comment on above: Performed By: #### D JOSE A CDP, REJEC #### [facility] [address] [place] [address] Nightman: Flash Jaramillo MD Basophils/100 WBC (Bld) 0 % Normal 0-2 [facility] Comment on above: Performed By: #### D JOSE A CDP, REJEC #### [facility] [address] [place] [address] Nightman: Flash Jaramillo MD Eosinophils (Bld) [#/Vol] 0.10 10*3/uL Normal 0.0-0.4 [facility] Comment on above: Performed By: #### D JOSE A CDP, REJEC #### [facility] [address] [phone] Nightman: Flash Jaramillo MD Eosinophils/100 WBC (Bld) 1 % Normal 0-5 [facility] Comment on above: Performed By: #### Maris NARANJO CDP, REJEC #### [facility] [address] [place] [address] Nightman: Flash Jaramillo MD Erythrocyte distribution width (RBC) [Ratio] 13.3 % Normal 12.1-15.2 [facility] Comment on above: Performed By: #### D JOSE A CDP, REJEC #### [facility] [address] [phone] Nightman: Flash Jaramillo MD Hematocrit (Bld) [Volume fraction] 42.0 % Normal 36-46 [facility] Comment on above: Performed By: #### D JOSE A CDP, REJEC #### [facility] [address] [place], [place] [id number] Nightman: Flash Jaramillo MD Hemoglobin (Bld) [Mass/Vol] 14.3 g/dL Normal 12.0-16.0 [facility] Comment on above: Performed By: #### DRE SIU, REJEC #### [facility] [address] [place] [address] Nightman: Flash Jaramillo MD Lymphocytes (Bld) [#/Vol] 0.80 10*3/uL Low 1.0-4.8 [facility] Comment on above: Performed By: #### DRE SIU, REJEC #### [facility] [address] [place] [address] Nightman: Flash Jaramillo MD Lymphocytes/100 WBC (Bld) 11 % Low 15-40 [facility] Comment on above: Performed By: #### DRE SIU, REJEC #### [facility] [address] [place] [address] Nightman: Flash Jaramillo MD MCH (RBC) [Entitic mass] 29.5 pg Normal 26-34 [facility] Comment on above: Performed By: #### DRE SIU, REJEC #### [facility] [address] [place] [address] Nightman: Flash Jaramillo MD MCHC (RBC) [Mass/Vol] 34.1 g/dL Normal 31-37 [facility] Comment on above: Performed By: #### DRE SIU, REJEC #### [facility] [address] [place] [address] Nightman: Flash Jaramillo MD MCV (RBC) [Entitic vol] 86.5 fL Normal 80-100 [facility] Comment on above: Performed By: #### DRE SIU, REJEC #### [facility] [address] [place] [address] Nightman: Flash Jaramillo MD Monocytes (Bld) [#/Vol] 0.50 10*3/uL Normal 0.0-1.0 [facility] Comment on above: Performed By: #### Maris NARANJO CDP, REJEC #### [facility] [address] [place] [address] Nightman: Flash Jaramillo MD Monocytes/100 WBC (Bld) 7 % Normal 4-8 [facility] Comment on above: Performed By: #### DRE SIU, REJEC #### [facility] [address] [place] [address] Nightman: Flash Jaramillo MD Neutrophil (Seg) 81 % High 47-75 [facility] Comment on above: Performed By: #### DRE SIU, REJEC #### [facility] [address] [place] [address] Nightman: Flash Jaramillo MD Platelets (Bld) [#/Vol] 340 10*3/uL Normal 140-450 [facility] Comment on above: Performed By: #### DRE SIU, REJEC #### [facility] [address] [place] [address] Nightman: Flash Jaramillo MD RBC (Bld) [#/Vol] 4.86 10*6/uL Normal 4.0-5.2 [facility] Comment on above: Performed By: #### DRE SIU, REJEC #### [facility] [address] [place] [address] Nightman: Flash Jaramillo MD WBC (Bld) [#/Vol] 7.8 10*3/uL Normal 3.5-11.0 [facility] Comment on above: Performed By: #### DRE SIU, REJEC #### [facility] [address] [place], [place] [id number] Nightman: Flash Jaramillo MD Abs.Imm.Granulocyte NOT REPORTED Normal 0.00-0.30 [facility] Comment on above: Performed By: #### D JOSE A CDP, REJEC #### [facility] [address] [place], [place] [id number] Nightman: Flash Jaramillo MD Immature Granulocyte NOT REPORTED Normal 0 [facility] Comment on above: Performed By: #### D JOSE A CDP, REJEC #### [facility] [address] [place] [address] Nightman: Flash Jaramillo MD MPV NOT REPORTED Normal 6.0-12.0 [facility] Comment on above: Performed By: #### D DRE NARANJO, REJEC #### [facility] [address] [place], [place] [id number] Nightman: Flash Jaramillo MD NRBC Automated NOT REPORTED Normal [facility] Comment on above: Performed By: #### D DRE NARANJO, REJEC #### [facility] [address] [place] [id number] Nightman: Flash Jaramillo MD Platelet Estimate NOT REPORTED Normal [facility] Comment on above: Performed By: #### D JOSE A CDP, REJEC #### [facility] [address] [place] [id number] Nightman: Flash Jaramillo MD RBC morphology finding Nom (Bld) NOT REPORTED Normal [facility] Comment on above: Performed By: #### D JOSE A, CDP, REJEC #### [facility] [address] [place], [place] [id number] Nightman: Flash Jaramillo MD WBC Morphology NOT REPORTED Normal [facility] Comment on above: Performed By: #### D JOSE A, CDP, REJEC #### [facility] [address] [place] [address] Nightman: Flash Jaramillo MD CTA CHEST W CONTRASTOrdered By: Tita Edwards on 01-13-2021 No evidence for acute large occlusive pulmonary embolism. No evidence for thoracic aortic aneurysm or dissection flap. No suspicious lung infiltrates or consolidation. Hepatic steatosis. Mild gastroesophageal wall thickening, correlate clinically. [employer] Phone: EXAMINATION: CTA CHEST W CONTRAST HISTORY: [...] distal esophagitis/wall lesion. No acute bony abnormality. [employer] Phone: Moreno, pn Incoming Radiant Results From [employer] - 01/13/2021 10:06 PM EDT EXAMINATION: CTA [...] steatosis. Mild gastroesophageal wall thickening, correlate clinically. [facility] [place] Work Phone: [facility] Work Phone: Comp Metabolic Profon 2020 (cont.) Normal [facility] Comment on above: Result Comment: Aver age GFR for 50-59 years old: 93 mL/min/1.73sq m Chronic Kidney Disease: <60 mL/min/1.73sq m Kidney failure: <15 mL/min/1.73sq m eGFR calculated using average adult body mass. Additional eGFR calculator available at: http://www.Unified Social.GroupTie/multiple_crcl_2012.htm Performed By: #### C P, TROPI #### [facility] [address] [place] [address] Nightman: Flash Jaramillo MD Albumin [Mass/Vol] 4.3 g/dL Normal 3.5-5.2 [facility] Comment on above: Performed By: #### C P, TROPI #### [facility] [address] [place] [address] Nightman: Flash Jaramillo MD Alkaline Phos 165 U/L High 35-104 [facility] Comment on above: Performed By: #### C P, TROPI #### [facility] [address] [place] [address] Nightman: Flash Jaramillo MD ALT [Catalytic activity/Vol] 24 U/L Normal 5-33 [facility] Comment on above: Performed By: #### C P, TROPI #### [facility] [address] [place] [address] Nightman: Flash Jaramillo MD Anion gap [Moles/Vol] 10 mmol/L Normal 9-17 [facility] Comment on above: Performed By: #### C P, TROPI #### [facility] [address] [place], [place] [id number] Nightman: Flash Jaramillo MD AST [Catalytic activity/Vol] 14 U/L Normal <32 [facility] Comment on above: Performed By: #### C P, TROPI #### [facility] [address] [place] [address] Nightman: Flash Jaramillo MD Bilirubin [Mass/Vol] 0.24 mg/dL Low 0.30-1.20 [facility] Comment on above: Performed By: #### C P, TROPI #### [facility] [address] [place] [address] Nightman: Flash Jaramillo MD BUN/CRE Ratio 16 Normal 9-20 [facility] Comment on above: Performed By: #### C P, TROPI #### [facility] [address] [place] [address] Nightman: Flash Jaramillo MD Calcium [Mass/Vol] 9.9 mg/dL Normal 8.6-10.4 [facility] Comment on above: Performed By: #### C P, TROPI #### [facility] [address] [place] [address] Nightman: Flash Jaramillo MD Chloride [Moles/Vol] 101 mmol/L Normal 98-107 [facility] Comment on above: Performed By: #### C P, TROPI #### [facility] [address] [place], [place] [phone] Nightman: Flash Jaramillo MD CO2 [Moles/Vol] 24 mmol/L Normal 20-31 [facility] Comment on above: Performed By: #### C P, TROPI #### [facility] [address] [place], [place] [id number] Nightman: Flash Jaramillo MD Creatinine [Mass/Vol] 1.04 mg/dL High 0.50-0.90 [facility] Comment on above: Performed By: #### C P, TROPI #### [facility] [address] [place] [address] Nightman: Flash Jaramillo MD GFR, Amer >60 Normal >60 [facility] Comment on above: Performed By: #### C P, TROPI #### [facility] [address] [place] [address] Nightman: Flash Jaramillo MD GFR,non Amer 55 mL/min Low >60 [facility] Comment on above: Performed By: #### C P, TROPI #### [facility] [address] [place] [address] Nightman: Flash Jaramillo MD Glucose [Mass/Vol] 126 mg/dL High 70-99 [facility] Comment on above: Performed By: #### C P, TROPI #### [facility] [address] [place] [address] Nightman: Flash Jaramillo MD Potassium [Moles/Vol] 4.2 mmol/L Normal 3.7-5.3 [facility] Comment on above: Performed By: #### C P, TROPI #### [facility] [address] [place] [address] Nightman: Flash Jaramillo MD Protein [Mass/Vol] 7.9 g/dL Normal 6.4-8.3 [facility] Comment on above: Performed By: #### C P, TROPI #### [facility] [address] [place] [address] Nightman: Flash Jaramillo MD Sodium [Moles/Vol] 135 mmol/L Normal 135-144 [facility] Comment on above: Performed By: #### C P, TROPI #### [facility] [address] [place] [address] Nightman: Flash Jaramillo MD Urea nitrogen [Mass/Vol] 17 mg/dL Normal 6-20 [facility] Comment on above: Performed By: #### C P, TROPI #### [facility] [address] [place], [place] [id number] Nightman: Flash Jaramillo MD Albumin/Glob Ratio NOT REPORTED Normal 1.0-2.5 [facility] Comment on above: Performed By: #### C P, TROPI #### [facility] [address] [place], [place] [phone] Nightman: Flash Jaramillo MD Staging: NOT REPORTED Normal [facility] Comment on above: Performed By: #### C P, TROPI #### [facility] [address] [place] [address] Nightman: Flash Jaramillo MD Comprehensive Metabolic Pane lOrdered By: Tita Edwards on 01-13-2021 Albumin [Mass/Vol] 4.3 g/dL 3.5 - 5.2 g/dL [facility] [employer] Phone: Albumin/Globulin Ratio NOT REPORTED [employer] [facility] [employer] Phone: ALP (Bld) [Catalytic activity/Vol] 165 U/L High 35 - 104 U/L [facility] Phone: ALT [Catalytic activity/Vol] 24 U/L 5 - 33 U/L [facility] Phone: Anion gap [Moles/Vol] 10 mmol/L 9 - 17 mmol/L [facility] Phone: AST [Catalytic activity/Vol] 14 U/L <32 [employer] Phone: Bilirubin [Mass/Vol] 0.24 mg/dL Low 0.30 - 1.20 mg/dL [employer] Phone: Calcium [Mass/Vol] 9.9 mg/dL 8.6 - 10. 4 mg/dL [employer] Phone: Chloride [Moles/Vol] 101 mmol/L 98 - 10 7 mmol/L [employer] Phone: CO2 [Moles/Vol] 24 mmol/L 20 - 31 mmol/L [employer] Phone: Creatinine [Mass/Vol] 1.04 mg/dL High 0.50 - 0.90 mg/dL [employer] Phone: Free PSA/Total PSA [Mass fraction] 7.9 g/dL 6.4 - 8.3 g/dL [employer] Phone: GFR >60 >60 mL/min [employer] Phone: GFR Non- 55 mL/min Low >60 [employer] Phone: GFR/1.73 sq M.predicted MDRD (S/P/Bld) [Vol rate/Area] [employer] Phone: Comment on above: Average GFR for 50-5 9 years old: 93 mL/min/1.73sq m Chronic Kidney Disease: <60 mL/min/1.73sq m Kidney failure: <15 mL/min/1.73sq m eGFR calculated using average adult body mass. Additional eGFR calculator available at: http://www.Unified Social.GroupTie/multiple_crcl_2012.htm GFR/1.73 sq M.predicted MDRD (S/P/Bld) [Vol rate/Area] NOT REPORTED [employer] Phone: Glucose [Mass/Vol] 126 mg/dL High 70 - 99 mg/dL [employer] Phone: Interpretation and review of laboratory results Abnormal [employer] Phone: Potassium [Moles/Vol] 4.2 mmol/L 3.7 - 5.3 mmol/L [employer] Phone: Sodium [Moles/Vol] 135 mmol/L 135 - 144 mmol/L [employer] Phone: Urea nitrogen (BldV) [Mass/Vol] 17 mg/dL 6 - 20 mg/dL [employer] Phone: Urea nitrogen/Creatinine (Bld) [Mass ratio] 16 [employer] Phone: [employer] Phone: D-Dimer Teston 01-13-2021 D-Dimer Test 0.88 mg/L FEU High 0.00-0.59 [facility] Comment on above: Result Comment: When [...] #### D JOSE A, DRE, REJEC #### [facility] [address] [place] [address] Nightman: Flash Jaramillo MD D-Dimer, QuantitativeOrdered By: Tita Edwards on 01-13-2021 D-Dimer, Quant 0.88 [employer] Work Phone: Comment on above: When combined [...] Interpretation and review of laboratory results Abnormal [employer] Phone: [employer] Phone: SPECIMEN REJECTIONOrdered By : Tita Edwards on 01-13-2021 - NOT REPORTED [employer] Phone: Ordered Test CP TROP [employer] Phone: Reason for Rejection Unable to perform testing: Specimen hemolyzed. [employer] Phone: Specimen source Nom (Unsp spec) BLOOD IV START [employer] Phone: [employer] Phone: Specimen Rejectionon 021 Reason for rejection Unable to perform testing: Specimen hemolyzed. [facility] Comment on above: Performed By: #### D DRE NARANJO, REJEC #### [facility] [address] [place] [address] Nightman: Flash Jaramillo MD Source of sample BLOOD IV START [facility] Comment on above: Performed By: #### D DRE NARANJO, REJEC #### [facility] [address] [place] [address] Nightman: Flash Jaramillo MD Test ordered CP TROP [facility] Comment on above: Performed By: #### D DRE NARANJO, REJEC #### [facility] [address] [place] [address] Nightman: Flash Jaramillo MD ----- NOT REPORTED [facility] Comment on above: Performed By: #### D DRE NARANJO, REJEC #### [facility] [address] [place], [place] [phone] Nightman: Flash Jaramillo MD Troponinon 01-13-2021 Troponin, High Sens <6 Normal 0-14 [facility] Comment on above: Result Comment: High Sensitivity Troponin values cannot be compared with other Troponin methodologies. Patients with high levels of Biotin oral intake (i.e >5mg/day) may have falsely decreased Troponin levels. Samples collected within 8 hours of biotin intake may require additional information for diagnosis. Performed By: #### T ROPI #### [facility] [address] [place], [place] [id number] Nightman: Flash Jaramillo MD Troponin Interp. NOT REPORTED [facility] Comment on above: Performed By: #### T ROPI #### [facility] [address] [place], [place] [id number] Nightman: Flash Jaramillo MD Troponin T NOT REPORTED Normal <0.03 [facility] Comment on above: Performed By: #### T ROPI #### [facility] [address] [place], [place] [phone] Nightman: Flash Jaramillo MD Troponin, High Sens <6 Normal 0-14 [facility] Comment on above: Result Comment: High Sensitivity Troponin values cannot be compared with other Troponin methodologies. Patients with high levels of Biotin oral intake (i.e >5mg/day) may have falsely decreased Troponin levels. Samples collected within 8 hours of biotin intake may require additional information for diagnosis. Performed By: #### C P, TROPI #### [facility] [address] [place] [address] Nightman: Flash Jaramillo MD Troponin Interp. NOT REPORTED Normal [facility] Comment on above: Performed By: #### C P, TROPI #### [facility] [address] [place] [address] Nightman: Flash Jaramillo MD Troponin T NOT REPORTED Normal <0.03 [facility] Comment on above: Performed By: #### C P, TROPI #### [facility] [address] [place] [address] Nightman: Flash Jaramillo MD TroponinOrdered By: Tita Edwards on 01-13-2021 Troponin Interp NOT REPORTED [facility] Work Phone: Troponin T NOT REPORTED <0.03 ng/mL [facility] Work Phone: Troponin, High Sensitivity <6 0 - 14 ng/L [facility] Work Phone: Comment on above: High Sensitivity Troponin values cannot be compared with other Troponin methodologies. Patients with high levels of Biotin oral intake (i.e >5mg/day) may have falsely decreased Troponin levels. Samples collected within 8 hours of biotin intake may require additional information for diagnosis. [employer] [facility] Work Phone: Troponin Interp NOT REPORTED Mirian Finch [employer] Work Phone: Troponin T NOT REPORTED <0.03 ng/mL [employer] Work Phone: Troponin, High Sensitivity <6 0 - 14 ng/L [facility] Phone: Comment on above: High Sensitivity Troponin values cannot be compared with other Troponin methodologies. Patients with high levels of Biotin oral intake (i.e >5mg/day) may have falsely decreased Troponin levels. Samples collected within 8 hours of biotin intake may require additional information for diagnosis. [facility] Work Phone: XR CHEST PORTABLEon 01-14-20 XR [...] Sarbjit Ramirez MD 01/13/21 Final result Normal [facility] XR CHEST PORTABLEOrdered By: Tita Edwards on 01-13-2021 No focal consolidation, pneumothorax or pleural effusion. [facility] Work Phone: EXAM: XR CHEST PORTABLE HISTORY: Shortness of breath, chest pain. COMPARISON: None. TECHNIQUE: AP radiograph of the chest was performed. FINDINGS: No focal consolidation, pneumothorax or pleural effusion. There is mild elevation of the right hemidiaphragm. The cardiomediastinal silhouette is unremarkable. There are degenerative changes of the spine. [facility] Work Phone: [place], [employer] Incoming Radiant Results From [employer] - 01/13/2021 8:24 PM EDT EXAM: XR CHEST PORTABLE HISTORY: Shortness of breath, chest pain. COMPARISON: None. TECHNIQUE: AP radiograph of the chest was performed. FINDINGS: No focal consolidation, pneumothorax or pleural effusion. There is mild elevation of the right hemidiaphragm. The cardiomediastinal silhouette is unremarkable. There are degenerative changes of the spine. IMPRESSION: No focal consolidation, pneumothorax or pleural effusion. [employer] Phone: [employer] Phone: Vital Signs Date Time Vital Sign Value Performing Clinician Facility 06-16-2023 10:00-0500 Body height 157.48 cm Samra Yehmond Other [facility] Other 06-16-2023 10:00-0500 Body mass index (BMI) [Ratio] 35.52 kg/m2 Samra Wick Other [facility] Other 06-16-2023 10:00-0500 Body temperature 98 [degF] Samra Yehmond Other [facility] Other 06-16-2023 10:00-0500 Body weight 88.09 kg Samra Wick Other [facility] Other 06-16-2023 10:00-0500 Diastolic blood pressure 80 mm[Hg] Samra Wick Other [facility] Other 06-16-2023 10:00-0500 Respiratory rate 18 /min Samra Yehmond Other [facility] Other 06-16-2023 10:00-0500 SaO2% (BldA) [Mass fraction] 95 % Samra Yehmond Other [facility] Other 06-16-2023 10:00-0500 Systolic blood pressure 132 mm[Hg] Samra Yehmond Other [facility] Other 02-26-2023 11:45-0500 Body height 157.48 cm Siobhan Meyers Other [facility] Other 09-20-2022 11:45-0500 Body mass index (BMI) [Ratio] 34.93 kg/m2 Siobhan Meyers Other [facility] Other 09-20-2022 11:45-0500 Body temperature 98.3 [degF] Siobhan Meyers Other [facility] Other 09-20-2022 11:45-0500 Body weight 86.64 kg Siobhan Meyers Other [facility] Other 09-20-2022 11:45-0500 Respiratory rate 18 /min Siobhan Meyers Other [facility] Other 09-20-2022 11:45-0500 SaO2% (BldA) [Mass fraction] 98 % Siobhan Meyers Other [facility] Other 06-30-2022 18:35-0500 Body height 157.48 cm Cassandra Dumont Other [facility] Other 06-30-2022 18:35-0500 Body mass index (BMI) [Ratio] 34.56 kg/m2 Cassandra Dumont Other [facility] Other 06-30-2022 18:35-0500 Body temperature 97.7 [degF] Cassandra Dumont Other [facility] Other 06-30-2022 18:35-0500 Body weight 85.73 kg Cassandra Dumont Other [facility] Other 06-30-2022 18:35-0500 Diastolic blood pressure 72 mm[Hg] Cassandra Dumont Other [facility] Other 06-30-2022 18:35-0500 Respiratory rate 18 /min Cassandra Dumont Other [facility] Other 06-30-2022 18:35-0500 SaO2% (BldA) [Mass fraction] 98 % Cassandra Tim Other [facility] Other 06-30-2022 18:35-0500 Systolic blood pressure 126 mm[Hg] Cassandra Dumont Other [facility] Other 12-18-2021 16:55-0400 Body height 157.48 cm Siobhan Gonzalezault Other [facility] Other 12-18-2021 16:55-0400 Body mass index (BMI) [Ratio] 32.92 kg/m2 Siobhan Luigi Other [facility] Other 12-18-2021 16:55-0400 Body temperature 98.9 [degF] Siobhan Luigi Other [facility] Other 12-18-2021 16:55-0400 Body weight 81.65 kg Siobhan Gonzalezault Other [facility] Other 12-18-2021 16:55-0400 Respiratory rate 16 /min Siobhan Luigi Other [facility] Other 12-18-2021 16:55-0400 SaO2% (BldA) [Mass fraction] 95 % Siobhan Luigi Other [facility] Other 01-13-2021 22:34-0400 Diastolic blood pressure 80 mm[Hg] Tita Edwards MD Work Phone: [facility] Work Phone: 01-13-2021 22:34-0400 Heart rate 78 /min Tita Edwards MD Work Phone: [facility] Work Phone: 01-13-2021 22:34-0400 Respiratory rate 17 /min Tita Edwards MD Work Phone: [facility] Work Phone: 01-13-2021 22:34-0400 Systolic blood pressure 134 mm[Hg] Tita Edwards MD Work Phone: [facility] Work Phone: 01-13-2021 19:33-0400 Body temperature 98.01 [degF] Tita Edwards MD Work Phone: [facility] Work Phone: 01-13-2021 19:33-0400 Body weight 79.38 kg Tita Edwards MD Work Phone: [facility] Work Phone: 01-13-2021 19:33-0400 SaO2% (BldA) [Mass fraction] 99 % Tita Edwards MD Work Phone: [facility] Work Phone: Encounters Encounter Date Encounter Type Care Provider Facility Start: 11-18-2023 End: 11-18-2023 ambulatory CHRIS DHILLON Not Available Start: 10-22-2023 End: 10-22-2023 ambulatory UNKNOWN PROVIDER Facility:[facility] Start: 10-01-2023 End: 10-01-2023 ambulatory CHRIS FELTER Not Available Start: 09-15-2023 End: 09-16-2023 ambulatory UNKNOWN PROVIDER Facility:[facility] Start: 09-10-2023 End: 09-10-[address] [facility] Start: 07-30-2023 End: 07-30-[address] [facility] Start: 06-29-2023 End: 06-29-2023 ambulatory CHRIS DHILLON Not Available Start: 06-16-2023 End: 06-16-2023 ambulatory Samra Wick Other [facility] Other Start: 06-16-2023 Office outpatient vi sit 15 minutes Samra Shamika [facility] Start: 05-23-2023 Letter encounter Marisol canojosette Start: 01-05-2023 End: 01-05-2023 ambulatory [facility] Start: 12-09-2022 End: 12-09-2022 ambulatory [facility] Start: 10-30-2022 End: 10-30-[address] [facility] Start: 10-12-2022 End: 10-13-[address] ROMAIN CAN Facility:[facility] Start: 09-20-2022 End: 09-20-2022 ambulatory Siobhan Meyers Other [facility] Other Start: 09-20-2022 Office outpatient vi sit 15 minutes Siobhan Meyers [facility] Start: 06-30-2022 End: 06-30-2022 ambulatory Cassandra Dumont Other [facility] Other Start: 06-30-2022 Office outpatient vi sit 25 minutes Cassandra Dumont [facility] Start: 12-18-2021 End: 12-18-2021 ambulatory Siobhan Meyers Other [facility] Other Start: 12-18-2021 Office outpatient vi sit 25 minutes Siobhanjaja Meyers [facility] Start: 07-30-2021 End: 10-29-2021 Patient encounter procedure MORALES ANGULO [facility] Start: 01-13-2021 End: 01-14-2021 Emergency department patient visit TITA EDWARDS [facility] Start: 01-13-2021 End: 01-13-2021 Emergency department patient visit Tita Edwards MD Work Phone: [facility] ED Comment on above: Chest pain, unspecif [...] DTaP/Tdap/Td vaccine (2 - Td or Tdap) [facility] Work Phone: Start: 09-15-2023 End: 09-15-2023 Patient encounter procedure 09/15/2023 10:50 AM EST Procedure Visit [facility] [address] [place] [address] Pasquale Rosa, Syd [address] [place] [address] [facility] Start: 2023 RSV vaccine (optional 60+ years) RSV vaccine (optional 60+ years) [facility] Start: 03-26-2023 Influenza vaccination Influenza Vaccine (#1) [facility] Start: 03-26-2021 Influenza vaccination Flu vaccine (Season Ended) [employer] Phone: Start: 2013 Screening for malignant neoplasm of breast Breast cancer screen [employer] Phone: Start: 2013 Screening for malignant neoplasm of colon Colon cancer screen colonoscopy [employer] Phone: Start: 2013 Shingles (RZV) Vaccine (1 of 2) Shingles (RZV) Vaccine (1 of 2) [facility] Start: 2013 Shingles Vaccine (1 of 2) Shingles Vaccine (1 of 2) [employer] Phone: Start: 2008 Cholesterol [Mass/volume] in Serum or Plasma Cholesterol [facility] Start: 2008 Screening for malignant neoplasm of colon [facility] Start: 2003 Lipid panel Lipid screen [employer] Phone: Start: 2003 Screening for malignant neoplasm [...] 1975 COVID-19 Vaccine (1) COVID-19 Vaccine (1) [employer] Phone: Start: 1963 COVID-19 Vaccine (#1) COVID-19 Vaccine (#1) [facility] Start: 1965 Hepatitis C screening Hepatitis C screen [employer] Phone: Start: 1965 Screening for malignant neoplasm of colon Colonoscopy [facility] EKG 12 Lead EKG 12 Lead ECG Routine 01/13/2021 7:37 PM EDT [employer] Phone: Payers Date Payer Category Payer Unknown SP/UNINSURED [employer] EVALUATION 2023-Present Other [id number] 2020 Medicaid [id number] 1963 Unknown [id number] 1963 Unknown [id number] 1963 Unknown [id number] 1963 Unknown [id number] 1963 Unknown [id number] 1963 Unknown [id number] 1963 Unknown [id number] 1959 Medicaid [id number] Social History Date Type Detail Facility Start: 01-13-[address] [facility] Never smoker [employer] Phone: Start: 01-13-2021 Tobacco use and exposure Never used [facility] Start: 01-13-2021 Alcohol intake Lifetime non-d melchor (finding) [facility] Work Phone: Start: 01-13-2021 History SDOH Alcohol Frequency 1 [employer] Phone: Start: 01-13-2021 Alcohol Comment occasional [employer] Work Phone: Start: 1965 Sex Assigned At Not on file [employer] Work Phone: Exposure to SARS-CoV -2 (event) Not sure [facility] Sex Assigned At Female [facility] Tobacco smoking stat 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 Still gets intermittent skips . Denies chest pain, SOB, and lightheadedness/syncope. Review of Systems Cardiovascular: Positive for irregular heartbeat and palpitations. All other systems reviewed and are negative. [facility] 09-10-2023 Note Cardiovascular Medic [facility] SUBJECTIVE Sandro Severino is a 58 [...] Left lower l (more content not included)... [facility] 07-30-2023 Note Cardiovascular Medic [facility] SUBJECTIVE Sandro Severino is a 58 y.o. [...] Behavior: Behavior anna (more content not included)... [facility] 07-30-2023 Note Review of Systems Cardiovascular: Positive for palpitations. Palpitaions every now and then pt feels well Pt also started januvia and cymbolta [facility] 06-16-2023 Evaluation note Encounter Date Diagnosis [...] no improvement in 2 to 3 days [facility] Other 06-13-2023 NotePatient here for 1 mo [...] headaches. All other systems reviewed and are negative.[facility] 01-05-2023 NoteCardiovascular Medicine [facility] SUBJECTIVE Chief Complaint Patient presents with [...] hgbA1c - 8.4 Testing/Pr (more content not included)...[facility] 12-25-2022 NoteCORE [address]05-17-2023 Note Cardiovascular Medicine [facility] SUBJECTIVE Chief Complaint Patient presents with [...] home. She c/o feeli (more content not included)...[facility] 12-09-2022 NotePatient is here today for a 1 month follow up. Review of Systems Constitutional: Positive for decreased appetite and weight loss. Musculoskeletal: Positive for arthritis and back pain. Neurological: Positive for dizziness, headaches and loss of balance. All other systems reviewed and are negative.[facility] 10-30-2022 NoteCardiology Clinic Note Chief Complaint: [...] a past medical history of Diabetes mellitus ([facility]). Surgical History She has a past [...] as needed Pacheco Burns MD Interventional Cardiology [facility]04-07-2023 NoteReview of Systems Cardiovascular: Positive for chest pain. Neurological: Positive for headaches. All other systems reviewed and are negative.[facility] 10-12-2022 NoteCARDIAC STRESS TEST Requesting Physician: [...] seen. EKG portion is negative for ischemia.[id number]* Encounter Date Diagnosis Assessment Notes [...] care provider if no improvement of symptoms [facility] Other 12-06-2022 Evaluation note* Encounter Date Diagnosis [...] other viral communicable diseases (ICD-10 - Z20.828) [facility] Other 05-26-2022 Evaluation note* Encounter Date Diagnosis Assessment Notes Treatment Notes Treatment Clinical Notes November, Cough (ICD-10 - R05.9) November, COVID-19 (ICD-10 - U07.1) Today you tested positive for the COVID virus. This mean you need to follow all CDC quarantine guidelines found at [email or web address] v. It is important to rest, increase [...] UP AND WHEN TO SEEK EMERGENCY TREATMENT [facility] Other Evaluation + Plan note No data available for this section [facility] Chest pain, unspecified type- Primary Anxiety state Anxiety state, unspecified documented in this encounter [employer] Phone: History general Narrative - Reported* Type Description Date Medical History Anxiety Medical History HTN (hypertension) Surgical History ablasion uterine [facility] Other History general Narrative - Reported* Type Description Date Medical History Anxiety Medical History HTN (hypertension) Surgical History ablasion uterine Hospitalization History Kidney Infection 1994 Hospitalization History chest pain 2022 [facility] [employer] Other Hospital Discharge instructions* Attachments The following attachments cannot be sent through Care Everywhere. * Chest Pain ([place]) * Anxiety Disorder ([place]) [facility] Phone: Hospital Discharge instructions No data available for this section [facility] Summary Purpose Family History No Family History [...] DATE CREATED AUTHOR AUTHOR'S ORGANIZ ATION 02/11/2022 [facility] DATE CREATED AUTHOR AUTHOR'S ORGANIZ ATION 10/15/2022 [facility] DATE CREATED AUTHOR AUTHOR'S ORGANIZ ATION 09/12/2023 [facility] DATE CREATED AUTHOR AUTHOR'S ORGANIZ ATION 10/29/2023 [email or web address] [facility] DATE CREATED AUTHOR AUTHOR'S ORGANIZ ATION 11/20/2023 [facility] FOR RECORDS PERTAINING TO PATIENTS WHO [...] BE BASED ON THE PRIMARY CLINICAL RECORDS. [facility] provides no warranty or guarantee of the accuracy or completeness of information in this document.
[2023-12-15 09:26] LABS: Alanine Aminotransferase 105 U/L (14-59); Albumin Globulin Ratio 0.9; Albumin Level 3.4 g/dL (3.4-5.0); Alkaline Phosphatase 161 U/L (46-116); Aspartate Amino Transferase 34 U/L (15-37); Bilirubin Direct 0.1 mg/dL (0.0-0.2); Bilirubin Total 0.6 mg/dL (0.2-1.0); Globulin 3.9 g/dL; Total Protein 7.3 g/dL (6.4-8.2)
[2023-12-16 05:07] LABS: HBsAg Screen Negative (Negative); HCV Ab Non Reactive (Non Reactive); Hep A Ab, IgM Negative (Negative); Hep B Core Ab, IgM Negative (Negative)
== END 2023-12-15 07:56 | disposition home or self-care (01) ==
LOC: LAB 07:56
PROVIDERS: PCP Nurse Practitioner; Visit Provider Nurse Practitioner
DX: R74.8 Abnormal levels of other serum enzymes (principal)
CPT/HCPCS: 36415; 76705; 80074; 80076

== ENCOUNTER 2024-01-18 14:24 | Outpatient (OUT) | payer MEDICAID, SELFPAY ==
--- OUTSIDE RECORDS SUMMARY | 2024-01-18 14:30 | XMS_ITS | CCD ---
Author Organization [facility] Care Team Providers Care Station Mechanic Name Role Phone Unavailable Primary Care Provider UnavailTITA Keenan Attending Unavailable MORALES ANGULO Primary Care Physician [phone] Siobhan Meyers Unavailable Cassandra Dumont Unavailable DR ROMAIN CAN Consulting Unavailabl e ROSE MARIE ., FELIBERTO Attending Unavailable REQUEST, DR NONE LISTED Primary Care Unavaila ble ROSE MARIE ., FELIBERTO Admitting Unavailable DR DELL WINN Consulting Unavailable TERESSA OLIVEROS Consulting Unavailable ROSE MARIE ., FELIBERTO Consulting Unavailable Unavailable Primary Care Provider UnavailSamra Sexton Unavailable TERESSA OLIVEROS Attending Unavailable PACHECO BURNS Attending Unavailable PACHECO BURNS Attending Unavailable PACHECO BURNS Attending Unavailable TERESSA OLIVEROS Attending Unavailable CHRIS DHILLON Attending Unavailable CHRIS DHILLON Attending Unavailable PROVIDER, UNKNOWN Admitting Unavailable DELBERT GOLDEN Attending Unavaila ble PROVIDER, UNKNOWN Admitting Unavailable AMINA MAC Attending Unavailable PROVIDER, UNKNOWN Admitting Unavailable MARIBEL CONNORS Attending Unavailable PROVIDER, UNKNOWN Admitting Unavailable ELBA ELKINS Attending Unavailable Medications Current Medications Medication Drug [...] / neomycin 3.5 mg/ml / polymyxin b 72071 unt/ml otic solution (1 source) Aminoglycoside Antibacterial, Polymyxin-class Antibacterial, Corticosteroid Start: 09-20-19 Rjzuychi-Gyjqaysbu-HS 3.5-91630-8 4 drops into affected ear Otic Three [...] Nausea Episodic Other aftercare (1 source) Other half-way (current) drug therapy; Translations: [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 Reviewed Medical History. Pt exhibited the following conditions: No significant medical history Patient is ready for treatment. Topical Benzocaine gel applied at the injection site for 2 minutes. Administered 1 carpules of Lidocaine, 2% with Epinephrine 1:100,000,. isolation achieved. Decay/existing buddhism removed, cavity prepared. Selectively etched enamel with 37% phosphoric acid, rinsed, and blot dried. OptiBond hills applied and light-cured. Condensed packable composite shade A3 in light cured increments using Retraction cord with hemostatic gel Finished with finishing burs, checked occlusion, verified proximal contacts and buddhism was polished. Rinsed and suctioned intraorally, advised patient to not eat until local anesthesia wears off. POST OPERATIVE Periapical (single) RADIOGRAPH TAKEN. Next Visit: Restorative ----- Signed on Thursday, December 21, 2023 at 3:48:00 PM ----- ----- Provider: [id number] - Chelsea Sun DDS -- Clinic: [place] ----- Normal [facility] Progress Noteson 12-14-2023 [employer] Salesperson Authentication Interface Message Text ----- Thursday, December 14, 2023 at 12:33:43 PM ----- ----- Provider: [id number] - Resident Anahi -- Clinic: [place] ----- COMPOSITE DENOMINATIONAL Patient is scheduled for Taoist on tooth #18 surface DO. Reviewed Medical History. Pt exhibited the following conditions: No significant medical history Patient is ready for treatment. Topical Benzocaine gel applied at the injection site for 2 minutes. Administered 1 carpules of Lidocaine, 2% with Epinephrine 1:100,000,. Cotton roll isolation achieved. Decay/existing buddhism removed, cavity prepared. Selectively etched enamel with 37% phosphoric acid, rinsed, and blot dried. Xeno IV hills applied and light-cured. Condensed packable composite shade A2 in light cured increments using Automatrix. Finished with finishing burs, checked occlusion, verified proximal contacts and buddhism was polished. Rinsed and suctioned intraorally, advised patient to not eat until local anesthesia wears off. POST OPERATIVE Periapical (single) RADIOGRAPH TAKEN. Next Visit: Bret ----- Signed on Thursday, December 14, 2023 at 2:29:42 PM ----- ----- Provider: [id number] - Pasquale Martin DDS -- Clinic: [place] ----- Normal [facility] Progress Noteson 10-22-2023 [employer] Salesperson Authentication Interface Message Text ----- Sunday, October 22, 2023 at 12:00:23 PM ----- ----- Provider: [id number] - Amina Mac Hygienist -- Clinic: [place] ----- [facility], Pt is ready for tx. Pt is [...] BRET see chart RECALL/ 6months. Amina Gann RDH Normal [facility] Progress Noteson 09-15-2023 [employer] Salesperson Authentication Interface Message Text ----- Friday, September 15, 2023 at 11:18:51 AM ----- ----- Provider: [id number] - Delbert Bejarano Resident -- Clinic: [place] ----- INITIAL/COMPREHENSIV E EXAM Patient presents for [...] 2023 at 11:23:03 AM ----- ----- Provider: [id number] Geovanny Martin DDS -- Clinic: [place] ----- Normal [facility] Office Visiton 09-10-2023 Follow-up visit [id number] Sandro Severino D 1965 F Date Provider Department Center 09/10/2023 PACHECO GUILLORY Family History Problem Relation Age of Onset No Known Problems Mother No Known Problems Father No Known Problems Sister No Known Problems Brother Family Status - Relation Status Age at Mother Father Sister Brother Level of Service:31689 [place] OFFICE/OUTPATIENT ESTABLISHED LOW MDM 20 MIN Normal [facility] Office Visiton 07-30-2023 Follow-up visit [id number] Sandro Severino 1965 F Date Provider Department Center 07/30/2023 PACHECO GUILLORY [facility] No family history on file Level of Service:89345 [place] OFFICE/OUTPATIENT ESTABLISHED LOW MDM 20 MIN Normal [facility] COVID/FLU RT-PCRon SARS-CoV-2 (COVID-19) RNA RIDGE+probe Ql (Unsp spec) Negative [place] Other COVID/FLU RT-PCR Negative [facility] Other Office Visiton 01-05-2023 Follow-up visit [id number] Sandro Severino 1965 F Date Provider Department Center 01/05/2023 TERESSA SOLOMON Hos No family history on file Level of Service:83251 [place] OFFICE/OUTPATIENT ESTABLISHED LOW MDM 20-29 MIN Reason for Visit and Comments: Hypertension [218781] Normal [facility] 36on 12-24-2022 36 Her BP is more often running above goal. Would like to see her average BP running <130/90. We can either have her resume her losartan/hydrochloro thiazide or we can increase her carvedilol to 12.5mg BID. Normal [facility] Office Visiton 12-09-2022 Follow-up visit [id number] Sandro Severino 1965 F Date Provider Department Center 12/09/2022 TERESSA SOLOMON Hos No family history on file Level of Service:99786 [place] OFFICE/OUTPATIENT ESTABLISHED MOD MDM 30-39 MIN Reason for Visit and Comments: Follow-up [533083] - 1 mo. Follow up Normal [facility] Office Visiton 10-30-2022 Follow-up visit [id number] Sandro Severino 1965 F Date Provider Department Center 10/30/2022 3848-PACHECO BURNS CARD [place] [facility] No family history on file Level of Service:23130 [place] OFFICE/OUTPATIENT ESTABLISHED MOD MDM 30-39 MIN Reason for Visit and Comments: Chest Pain [656631] - f/u tbh hypertension chest pain pt states last night she was having some chest pain and headache last night Normal [facility] CBC AUTO DIFFon 10-13-2022 BASO # 0.1 103/ul Normal 0.0-0.1 [facility] Comment on above: Performed By: #### P OCGLUC #### [facility] [address] [address] [address] Gibson Jin Basophils/100 WBC (Bld) 1.0 % Normal 0.2-2.0 [facility] Comment on above: Performed By: #### P OCGLUC #### [facility] [address] [address] [address] Gibson Jin EO # 0.2 103/ul Normal 0.0-0.7 [facility] Comment on above: Performed By: #### P OCGLUC #### [facility] [address] [address] [address] Gibson Jin Eosinophils/100 WBC (Bld) 3.9 % Normal 0.9-7.0 [facility] Comment on above: Performed By: #### P OCGLUC #### [facility] [address] [address] [address] Gibson Jin Erythrocyte distribution width (RBC) [Ratio] 12.4 % Normal 11.0-15.0 [facility] Comment on above: Performed By: #### P OCGLUC #### [facility] [address] [place] [address] Dr. Gibson Jin Hematocrit (Bld) [Volume fraction] 43.4 % Normal 36.0-48.0 [facility] Comment on above: Performed By: #### P OCGLUC #### [facility] [address] [address] [address] Gibson Jin Hemoglobin (Bld) [Mass/Vol] 14.7 g/dL Normal 12.0-16.0 [facility] Comment on above: Performed By: #### P OCGLUC #### [facility] [address] [address] [address] Gibson Jin IG # 0.09 10e3/ul Critically high 0.00-0.03 [facility] Comment on above: Performed By: #### P OCGLUC #### [facility] [address] [address] [address] Gibson Jin IG % 1.5 % Critically high 0.0-0.5 [facility] Comment on above: Performed By: #### P OCGLUC #### [facility] [address] [address] [address] Gibson Jin LYMPH # 1.2 103/ul Normal 1.2-3.8 [facility] Comment on above: Performed By: #### P OCGLUC #### [facility] [address] [address] [address] Gibson Jin Lymphocytes/100 WBC (Bld) 19.4 % Critically low 20.5-60.0 [facility] Comment on above: Performed By: #### P OCGLUC #### [facility] [address] [address] [address] Gibson Jin MANUAL DIFF REQ NO Normal [facility] Comment on above: Performed By: #### P OCGLUC #### [facility] [address] [address] [address] Gibson Jin MCH (RBC) [Entitic mass] 30.2 pg Normal 26.7-34.0 [facility] Comment on above: Performed By: #### P OCGLUC #### [facility] [address] [place] [address] Dr. Gibson Jin MCHC (RBC) [Mass/Vol] 33.9 g/dL Normal 29.9-35.2 [facility] Comment on above: Performed By: #### P OCGLUC #### [facility] [address] [address] [address] Gibson Jin MCV (RBC) [Entitic vol] 89.1 fL Normal 81.0-99.0 [facility] Comment on above: Performed By: #### P OCGLUC #### [facility] [address] [address] [address] Gibson Jin MONO # 0.4 103/ul Normal 0.3-0.8 [facility] Comment on above: Performed By: #### P OCGLUC #### [facility] [address] [place] [address] Dr. Gibson Jin Monocytes/100 WBC (Bld) 6.9 % Normal 1.7-12.0 [facility] Comment on above: Performed By: #### P OCGLUC #### [facility] [address] [place] [address] Dr. Gibson Jin NEUT # 4.1 103/ul Normal 1.4-6.5 [facility] Comment on above: Performed By: #### P OCGLUC #### [facility] [address] [place] [address] Dr. Gibson Jin Neutrophils/100 WBC (Bld) 67.3 % Normal 43.0-75.0 [facility] Comment on above: Performed By: #### P OCGLUC #### [facility] [address] [place] [address] Dr. Gibson Jin Platelet mean volume (Bld) [Entitic vol] 10.3 fL Normal 9.5-13.5 [facility] Comment on above: Performed By: #### P OCGLUC #### [facility] [address] [place] [address] Dr. Gibson Jin PLT 273 103/ul Normal 150-450 [facility] Comment on above: Performed By: #### P OCGLUC #### [facility] [address] [place] [address] Dr. Gibson Jin RBC 4.87 106/ul Normal 4.20-5.40 [facility] Comment on above: Performed By: #### P OCGLUC #### [facility] [address], [place] [address] [address] Gibson Jin WBC 6.1 103/ul Normal 4.0-11.0 [facility] Comment on above: Performed By: #### P OCGLUC #### [facility] [address], [place] [address] Dr. Gibson Jin ECHOCARDIO M/2D COMPLETEon 0 10-13-2022 ECHOCARDIO M/2D COMPLETE Patient: SANDRO SEVERINO Exam Date: 10/13/2022 : 1965 Gender:F Ordering : FELIBERTO TROTTER . Admission #: [id number] Family : Order #: [id number] CLICK HERE TO VIEW EXAM ECHOCARDIOGRAM REPORT [...] Mosquera M.D. on 10/13/2022 at 15:43 Normal [facility] GLYCOHEMOGLOBIN A1Con 2022 ADA RECOMMENDATION SEE BELOW Normal [facility] Comment on above: Result Comment: ADA RECOMMENDED LIMIT 4.0 - 6.0 ADA THERAPEUTIC TARGET < 7.0 ACTION SUGGESTED > 7.0 Performed By: #### A 1C #### [facility] [address] [place] [address] Dr. Gibson Jin Glucose [Mass/Vol] 197 mg/dL Normal [facility] Comment on above: Performed By: #### A 1C #### [facility] [address] [address] [address] Gibson Jin HbA1c (Bld) [Mass fraction] 8.5 % Critically high 4.5-6.2 [facility] Comment on above: Performed By: #### A 1C #### [facility] [address] [address] [address] Gibson Jin LIPID PROFILEon 10-13-2022 CHOL-HDL RATIO NORM SEE BELOW Normal [facility] Comment on above: Result Comment: 3.3 - 4.4 LOW RISK 4.4 - 7.1 AVERAGE RISK 7.1 - 11.0 MODERATE RISK >11.0 HIGH RISK Performed By: #### T SH, CMP, LIPID #### [facility] [address] [address] [address] Gibson Jin Cholesterol [Mass/Vol] 167 mg/dL Normal <=200 [facility] Comment on above: Performed By: #### T SH, CMP, LIPID #### [facility] [address] [address] [address] Gibson Jin Cholesterol in HDL [Mass/Vol] 45 mg/dL Normal 40-60 [facility] Comment on above: Performed By: #### T SH, CMP, LIPID #### [facility] [address] [place] [address] Dr. Gibson Jin Cholesterol in LDL [Mass/Vol] 93.4 mg/dL Normal [facility] Comment on above: Performed By: #### T SH, CMP, LIPID #### [facility] [address] [address] [address] Gibson Jin Cholesterol.total/Chol esterol in HDL [Mass ratio] 3.7 {ratio} Normal [facility] Comment on above: Performed By: #### T SH, CMP, LIPID #### [facility] [address] [place] [address] Dr. Gibson Jin HDL NORMAL > or = 60 mg/dl - LOW CARDIOVASCULAR RISK <40 mg/dl - HIGH CARDIOVASCULAR RISK Normal [facility] Comment on above: Performed By: #### T SH, CMP, LIPID #### [facility] [address] [address] [address] Gibson Jin LDL CALC NORMAL SEE BELOW Normal [facility] Comment on above: Result Comment: <100 mg/dl OPTIMAL 100 - 129 mg/dl NEAR OR ABOVE OPTIMAL 130 - 159 mg/dl BORDERLINE HIGH 160 - 189 mg/dl HIGH >190 mg/dl VERY HIGH Performed By: #### T SH, CMP, LIPID #### [facility] [address], [place] [address] Dr. Gibson Jin Triglyceride [Mass/Vol] 143 mg/dL Normal <=150 [facility] Comment on above: Performed By: #### T SH, CMP, LIPID #### [facility] [address], [place] [address] Dr. Gibson Jin VLDL CALC 28.6 mg/dL Normal [facility] Comment on above: Performed By: #### T SH, CMP, LIPID #### [facility] [address], [place] [address] Dr. Gibson Jin NM STRESS/REST MULTIon 10-13 NM STRESS/REST MULTI Patient: SANDRO SEVERINO Exam Date: 10/13/2022 : 1965 Gender:F Ordering : TERESSA OLIVEROS [facility] Admission #: [id number] Family : FELIBERTO TROTTER . Order #: [id number] CLICK HERE TO VIEW EXAM RADIOLOGY REPORT [...] was pending per attending physician Dr. Seth hunterending stress ecg report. For more details please [...] Winn M.D. on 10/13/2022 at 15:00 Normal [facility] POINT OF CARE GLUCOSEon 09-24 Glucose [Mass/Vol] 372 mg/dL Critically high 74-106 [facility] Comment on above: Performed By: #### P OCGLUC #### [facility] [address] [place] [address] Dr. Gibson Jin Glucose [Mass/Vol] 131 mg/dL Critically high 74-106 [facility] Comment on above: Performed By: #### P OCGLUC #### [facility] [address] [place] [address] Dr. Gibson Jin PROF 14(COMP METB)on 023 Albumin [Mass/Vol] 3.3 g/dL Critically low 3.4-5.0 [facility] Comment on above: Performed By: #### T SH, CMP, LIPID #### [facility] [address] [place] [address] Dr. Gibson Jin Albumin/Globulin [Mass ratio] 0.9 {ratio} Normal [facility] Comment on above: Performed By: #### T SH, CMP, LIPID #### [facility] [address] [address] [address] Gibson Jin ALP [Catalytic activity/Vol] 123 U/L Critically high 46-116 [facility] Comment on above: Performed By: #### T SH, CMP, LIPID #### [facility] [address] [place] [address] Dr. Gibson Jin ALT [Catalytic activity/Vol] 223 U/L Critically high 14-59 [facility] Comment on above: Performed By: #### T SH, CMP, LIPID #### [facility] [address] [address] [address] Gibson Jin Anion gap [Moles/Vol] 10.0 mmol/L Normal [facility] Comment on above: Performed By: #### T SH, CMP, LIPID #### [facility] [address] [address] [address] Gibson Jin AST [Catalytic activity/Vol] 113 U/L Critically high 15-37 [facility] Comment on above: Performed By: #### T SH, CMP, LIPID #### [facility] [address] [address] [address] Gibson Jin Bilirubin [Mass/Vol] 0.7 mg/dL Normal 0.2-1.0 [facility] Comment on above: Performed By: #### T SH, CMP, LIPID #### [facility] [address] [address] [address] Gibson Jin Calcium [Mass/Vol] 9.1 mg/dL Normal 8.5-10.[address] [facility] Comment on above: Performed By: #### T SH, CMP, LIPID #### [facility] [address] [address] [address] Gibson Jin Chloride [Moles/Vol] 102 mmol/L Normal 98-107 [facility] Comment on above: Performed By: #### T SH, CMP, LIPID #### [facility] [address] [address] [address] Gibson Jin CO2 [Moles/Vol] 30.0 mmol/L Normal 21.0-32.0 [facility] Comment on above: Performed By: #### T SH, CMP, LIPID #### [facility] [address] [address] [address] Gibson Jin Creatinine [Mass/Vol] 0.73 mg/dL Normal 0.55-1.02 [facility] Comment on above: Performed By: #### T SH, CMP, LIPID #### [facility] [address] [address] [address] Gibson Jin EGFR-AF TURKMEN >60 Normal >=60 [facility] Comment on above: Performed By: #### T SH, CMP, LIPID #### [facility] [address] [address] [address] Gibson Jin EGFR-NON AF TURKMEN >60 Normal >=60 [facility] Comment on above: Performed By: #### T SH, CMP, LIPID #### [facility] [address] [address] [address] Gibson Jin Globulin (S) [Mass/Vol] 3.5 g/dL Normal [facility] Comment on above: Performed By: #### T SH, CMP, LIPID #### [facility] [address] [place] [address] Dr. Gibson Jin Glucose [Mass/Vol] 165 mg/dL Critically high 74-106 [facility] Comment on above: Performed By: #### T SH, CMP, LIPID #### [facility] [address] [place] [address] Dr. Gibson Jin Potassium [Moles/Vol] 4.0 mmol/L Normal 3.5-5.1 [facility] Comment on above: Performed By: #### T SH, CMP, LIPID #### [facility] [address] [place] [address] Dr. Gibson Jin Protein [Mass/Vol] 6.8 g/dL Normal 6.4-8.2 [facility] Comment on above: Performed By: #### T SH, CMP, LIPID #### [facility] [address] [place] [address] Dr. Gibson Jin Sodium [Moles/Vol] 138 mmol/L Normal 136-145 [facility] Comment on above: Performed By: #### T SH, CMP, LIPID #### [facility] [address] [place] [address] Dr. Gibson Jin Urea nitrogen [Mass/Vol] 14.0 mg/dL Normal 7.0-18.0 [facility] Comment on above: Performed By: #### T SH, CMP, LIPID #### [facility] [address] [place] [address] Dr. Gibson Jin Urea nitrogen/Creatinine [Mass ratio] 19.2 mg/mg Normal [facility] Comment on above: Performed By: #### T JENNIFER, CMP, LIPID #### [facility] [address] [address] [address] Gibson Jin TSHon 10-13-2022 TSH 3.011 uIU/mL Normal 0.358-3.740 [facility] Comment on above: Performed By: #### T SH, CMP, LIPID #### [facility] [address] [address] [address] Gibson Jni US SINGLE QUAD RT UPPERon US SINGLE [...] DELL WINN Date: 2022-10-13 13:22 Normal [facility] CBC AUTO DIFFon 10-12-2022 BASO # 0.1 103/ul Normal 0.0-0.1 [facility] Comment on above: Performed By: #### C BC #### [facility] [address] [address] [address] Gibson Jin Basophils/100 WBC (Bld) 1.0 % Normal 0.2-2.0 [facility] Comment on above: Performed By: #### C BC #### [facility] [address] [address] [address] Gibson Jin EO # 0.2 103/ul Normal 0.0-0.7 [facility] Comment on above: Performed By: #### C BC #### [facility] [address] [place] [address] Dr. Gibson Jin Eosinophils/100 WBC (Bld) 2.2 % Normal 0.9-7.0 [facility] Comment on above: Performed By: #### C BC #### [facility] [address] [place] [address] Dr. Gibson Jin Erythrocyte distribution width (RBC) [Ratio] 12.1 % Normal 11.0-15.0 [facility] Comment on above: Performed By: #### C BC #### [facility] [address] [place] [address] Dr. Gibson Jin Hematocrit (Bld) [Volume fraction] 43.1 % Normal 36.0-48.0 [facility] Comment on above: Performed By: #### C BC #### [facility] [address] [place] [address] Dr. Gibson Jin Hemoglobin (Bld) [Mass/Vol] 15.1 g/dL Normal 12.0-16.0 [facility] Comment on above: Performed By: #### C BC #### [facility] [address] [place] [address] Dr. Gibson Jin IG # 0.06 10e3/ul Critically high 0.00-0.03 [facility] Comment on above: Performed By: #### C BC #### [facility] [address] [place] [address] Dr. Gibson Jin IG % 0.8 % Critically high 0.0-0.5 [facility] [facility] Comment on above: Performed By: #### C BC #### [facility] [address] [place] [address] Dr. Gibson Jin LYMPH # 1.5 103/ul Normal 1.2-3.8 [facility] Comment on above: Performed By: #### C BC #### [facility] [address] [place] [address] Dr. Gibson Jin Lymphocytes/100 WBC (Bld) 20.1 % Critically low 20.5-60.0 [facility] Comment on above: Performed By: #### C BC #### [facility] [address] [place] [address] Dr. Gibson Jin MANUAL DIFF REQ NO Normal [facility] Comment on above: Performed By: #### C BC #### [facility] [address] [place] [address] Dr. Gibson Jin MCH (RBC) [Entitic mass] 30.6 pg Normal 26.7-34.0 [facility] Comment on above: Performed By: #### C BC #### [facility] [address] [place] [address] Dr. Gibson Jin MCHC (RBC) [Mass/Vol] 35.0 g/dL Normal 29.9-35.2 [facility] Comment on above: Performed By: #### C BC #### [facility] [address] [place] [address] Dr. Gibson Jin MCV (RBC) [Entitic vol] 87.2 fL Normal 81.0-99.0 [facility] Comment on above: Performed By: #### C BC #### [facility] [address] [place] [address] Dr. Gibson Jin MONO # 0.5 103/ul Normal 0.3-0.8 [facility] Comment on above: Performed By: #### C BC #### [facility] [address] [place] [address] Dr. Gibson Jin Monocytes/100 WBC (Bld) 6.5 % Normal 1.7-12.0 [facility] Comment on above: Performed By: #### C BC #### [facility] [address] [place] [address] Dr. Gibson Jin NEUT # 5.0 103/ul Normal 1.4-6.5 [facility] Comment on above: Performed By: #### C BC #### [facility] [address] [place] [address] Dr. Gibson Jin Neutrophils/100 WBC (Bld) 69.4 % Normal 43.0-75.0 [facility] Comment on above: Performed By: #### C BC #### [facility] [address] [address] [address] Gibson Jin Platelet mean volume (Bld) [Entitic vol] 10.6 fL Normal 9.5-13.5 [facility] Comment on above: Performed By: #### C BC #### [facility] [address] [address] [address] Gibson Jin PLT 281 103/ul Normal 150-450 [facility] Comment on above: Performed By: #### C BC #### [facility] [address] [address] [address] Gibson Jin RBC 4.94 106/ul Normal 4.20-5.40 [facility] Comment on above: Performed By: #### C BC #### [facility] [address] [place] [address] Dr. Gibson Jin WBC 7.3 103/ul Normal 4.0-11.0 [facility] Comment on above: Performed By: #### C BC #### [facility] [address] [address] [address] Gibson Jin Covid-19 PCR ([facility])on 09-24 SARS-CoV-2 (COVID-19) RNA RIDGE+probe Ql (Unsp spec) Not detected Normal NOT DETECTED [facility] Comment on above: Result Comment: [...] for this test is supported by the [place] of [employer] and Human Service's declaration that [...] used). Performed By: #### P OCGLUC #### [facility] [address] [place] [address] Dr. Gibson Jin D-DIMERon 10-12-2022 D-DIMER 0.34 mg/L FEU Normal <=0.59 [facility] Comment on above: Performed By: #### P OCGLUC #### [facility] [address] [address] [address] Gibson Jin D-DIMER COMMENTS SEE BELOW Normal [facility] Comment on above: Result Comment: Incr [...] hospitalization. Performed By: #### P OCGLUC #### [facility] [address] [place] [address] Dr. Gibson Jin DRUG SCREEN RAPID (URINE)on 10-12-2022 AMP Negative Normal NEGATIVE [facility] Comment on above: Performed By: #### P OCGLUC #### [facility] [address] [place] [address] Dr. Gibson Jin BAR Negative Normal NEGATIVE [facility] Comment on above: Performed By: #### P OCGLUC #### [facility] [address] [place] [address] Dr. Gibson Jin BUP Negative Normal NEGATIVE [facility] Comment on above: Performed By: #### P OCGLUC #### [facility] [address] [place] [address] Dr. Gibson Jin BZO Negative Normal NEGATIVE [facility] Comment on above: Performed By: #### P OCGLUC #### [facility] [address] [place] [address] Dr. Gibson Jin CANDACE Negative Normal NEGATIVE [facility] Comment on above: Performed By: #### P OCGLUC #### [facility] [address] [place] [address] Dr. Gibson Jin CUT-OFFS SEE BELOW Normal [facility] Comment on above: Result Comment: AMP [...] ng/mL Performed By: #### P OCGLUC #### [facility] [address] [place] [address] Dr. Gibson Jin DRUG CUT HEADER DRUG CLASS TEST SYSTEM CUT-OFF CONCENTRATIONS ARE FOLLOWS: Normal [facility] Comment on above: Performed By: #### P OCGLUC #### [facility] [address] [place] [address] Dr. Gibson Jin mAMP Negative Normal NEGATIVE [facility] Comment on above: Performed By: #### P OCGLUC #### [facility] [address] [place] [address] Dr. Gibson Jin MTD Negative Normal NEGATIVE [facility] Comment on above: Performed By: #### P OCGLUC #### [facility] [address] [place] [address] Dr. Gibson Jin OPI Positive Abnormal NEGATIVE [facility] Comment on above: Performed By: #### P OCGLUC #### [facility] [address] [place] [address] Dr. Gibson Jin OXY Negative Normal NEGATIVE [facility] Comment on above: Performed By: #### P OCGLUC #### [facility] [address] [place] [address] Dr. Gibson Jin PCP Negative Normal NEGATIVE [facility] Comment on above: Performed By: #### P OCGLUC #### [facility] [address] [address] [address] Gibson Jin PPX Negative Normal NEGATIVE [facility] Comment on above: Performed By: #### P OCGLUC #### [facility] [address] [address] [address] Gibson Jin TCA Negative Normal NEGATIVE [facility] Comment on above: Performed By: #### P OCGLUC #### [facility] [address] [address] [address] Gibson Jin THC Negative Normal NEGATIVE [facility] Comment on above: Performed By: #### P OCGLUC #### [facility] [address] [place] [address] Dr. Gibson Jin POINT OF CARE GLUCOSEon 09-24 Glucose [Mass/Vol] 220 mg/dL Critically high 74-106 [facility] Comment on above: Performed By: #### P OCGLUC #### [facility] [address] [place] [address] Dr. Gibson Jin Glucose [Mass/Vol] 298 mg/dL Critically high 74-106 [facility] Comment on above: Performed By: #### P OCGLUC #### [facility] [address] [place] [address] Dr. Gibson Jin PROF 14(COMP METB)on 023 Albumin [Mass/Vol] 3.7 g/dL Normal 3.4-5.[address] [facility] Comment on above: Performed By: #### C KARLIE HSTROPN #### [facility] [address] [place] [address] Dr. Gibson Jin Albumin/Globulin [Mass ratio] 1.0 {ratio} Normal [facility] Comment on above: Performed By: #### C KARLIE HSTROPN #### [facility] [address] [place] [address] Dr. Gibson Jin ALP [Catalytic activity/Vol] 175 U/L Critically high 46-116 [facility] Comment on above: Performed By: #### C MP, HSTROPN #### [facility] [address] [address] [address] Gibson Jin ALT [Catalytic activity/Vol] 167 U/L Critically high 14-59 [facility] Comment on above: Performed By: #### C MP, HSTROPN #### [facility] [address] [address] [address] Gibson Jin Anion gap [Moles/Vol] 10.6 mmol/L Normal [facility] Comment on above: Performed By: #### C MP, HSTROPN #### [facility] [address] [address] [address] Gibson Jin AST [Catalytic activity/Vol] 49 U/L Critically high 15-37 [facility] Comment on above: Performed By: #### C MP, HSTROPN #### [facility] [address] [place] [address] Dr. Gibson Jin Bilirubin [Mass/Vol] 0.4 mg/dL Normal 0.2-1.0 [facility] Comment on above: Performed By: #### C MP, HSTROPN #### [facility] [address] [address] [address] Gibson Jin Calcium [Mass/Vol] 9.1 mg/dL Normal 8.5-10.[address] [facility] Comment on above: Performed By: #### C MP, HSTROPN #### [facility] [address] [address] [address] Gibson Jin Chloride [Moles/Vol] 102 mmol/L Normal 98-107 [facility] Comment on above: Performed By: #### C MP, HSTROPN #### [facility] [address] [address] [address] Gibson Jin CO2 [Moles/Vol] 26.8 mmol/L Normal 21.0-32.0 [facility] Comment on above: Performed By: #### C MP, HSTROPN #### [facility] [address] [address] [address] Gibson Jin Creatinine [Mass/Vol] 0.90 mg/dL Normal 0.55-1.02 [facility] Comment on above: Performed By: #### C MP, HSTROPN #### [facility] [address] [place] [address] Dr. Gibson Jin EGFR-AF TURKMEN >60 Normal >=60 [facility] Comment on above: Performed By: #### C MP, HSTROPN #### [facility] [address] [address] [address] Gibson Jin EGFR-NON AF TURKMEN >60 Normal >=60 [facility] Comment on above: Performed By: #### C MP, HSTROPN #### [facility] [address] [place] [address] Dr. Gibson Jin Globulin (S) [Mass/Vol] 3.6 g/dL Normal [facility] Comment on above: Performed By: #### C MP, HSTROPN #### [facility] [address] [place] [address] Dr. Gibson Jin Glucose [Mass/Vol] 288 mg/dL Critically high 74-106 [facility] Comment on above: Performed By: #### C MP, HSTROPN #### [facility] [address] [place] [address] Dr. Gibson Jin Potassium [Moles/Vol] 3.4 mmol/L Critically low 3.5-5.1 [facility] Comment on above: Performed By: #### C MP, HSTROPN #### [facility] [address] [place] [address] Dr. Gibson Jin Protein [Mass/Vol] 7.3 g/dL Normal 6.4-8.2 [facility] Comment on above: Performed By: #### C MP, HSTROPN #### [facility] [address] [place] [address] Dr. Gibson Jin Sodium [Moles/Vol] 136 mmol/L Normal 136-[address] [facility] Comment on above: Performed By: #### C MP, HSTROPN #### [facility] [address] [place] [address] Dr. Gibson Jin Urea nitrogen [Mass/Vol] 13.0 mg/dL Normal 7.0-18.0 [facility] Comment on above: Performed By: #### C MP, HSTROPN #### [facility] [address] [place], [place] [address] Dr. Gibson Jin Urea nitrogen/Creatinine [Mass ratio] 14.4 mg/mg Normal [facility] Comment on above: Performed By: #### C MP, HSTROPN #### [facility] [address] [address] [address] Gibson Jin TROPONIN, HIGH SENSITIVITYon 10-12-2022 HSTROP <4.0 Normal 4.0-51.3 [facility] Comment on above: Result Comment: CUT- OFF POINTS HAVE BEEN ESTABLISHED BASED ON THE FOURTH UNIVERSAL DEFINITIONS OF MYOCARDIAL INFARCTION. THE UPPER REFERENCE LIMIT (URL) OF TROPONIN, DEFINED THE 99TH PERCENTILE OF cTnI DISTRIBUTION IN A REFERENCE POPULATION, HAS BEEN CONFIRMED THE DECISION THRESHOLD FOR OR DIAGNOSIS. Performed By: #### P OCGLUC #### [facility] [address] [address] [address] Gibson Jin HSTROP <4.0 Normal 4.0-51.3 [facility] Comment on above: Result Comment: CUT- OFF POINTS HAVE BEEN ESTABLISHED BASED ON THE FOURTH UNIVERSAL DEFINITIONS OF MYOCARDIAL INFARCTION. THE UPPER REFERENCE LIMIT (URL) OF TROPONIN, DEFINED THE 99TH PERCENTILE OF cTnI DISTRIBUTION IN A REFERENCE POPULATION, HAS BEEN CONFIRMED THE DECISION THRESHOLD FOR OR DIAGNOSIS. Performed By: #### C MP, HSTROPN #### [facility] [address] [address] [address] Gibson Jin XR CHEST 1 Von [...] by: DELL WINN Date: 2022-10-12 10:36 Normal [facility] COVID + FLU Quick Testingon 09-20-2022 SARS-CoV-2 (COVID-19) RNA RIDGE+probe Ql (Unsp spec) Negative [facility] [employer] Other COVID + FLU Quick Testing Negative [facility] [employer] Other Quick Strepon 09-20-2022 S. pyogenes Org specific cx Ql (Throat) Negative [facility] [employer] Other Quick Strep [facility] [employer] Other COVID/FLU/RSV RT-PCRon 06-30 SARS-CoV-2 (COVID-19) RNA RIDGE+probe Ql (Unsp spec) Negative [facility] [employer] Other COVID/FLU/RSV RT-PCR Negative [facility] [employer] Other Registrationon 02-04-2022 Registration [id number]# 1.00CD:127 [facility] 01-09-2022 Consent [id number] #1.00CD:127 [facility] COVID/FLU RT-PCRon SARS-CoV-2 (COVID-19) RNA RIDGE+probe Ql (Unsp spec) Positive [facility] [employer] Other COVID/FLU RT-PCR Negative [facility] [employer] Other Coding Summary.on 08-04-2021 Coding Summary. CD:[id number] Gh0bWw+PGhlYWQ+PE1FV AGrH77ifRTucY1PG6pKL C7QVCQDRBUFBY8OAC1yt ES9VDttI7MaohHk OmuoqVCuFO26NGu3EEA0 tNukSCvcjX5wkIXqV4x8 ZoZrGR08xW58OExvYRIz GoO2QmPyipgvlYVb J1cyApTsoCYmFba+PHRh YmxlIHdpZHRoPScxMDAl BqRlgBtgAE4nJt8yQEKp LWNvbGxhcHNlOiBj a0ssYBQnPGipYL5jfZho N6GhwBQ7OKNsn7z6Im85 dHI+QRZoKPQ6xAzwPIkw a421GdJee2puUST2 aWJzMJrcRBT3N91iq4X1 PPCtKQWjYZT0hEQ4qS1y oYpxitiaK7PpkYVoMuM7 IAH0rYEahQ6yqWmn dkwzuE3yHbd+W35BRV5L NKBQNB6FZgz1T1UpGeeb dHI+LM23SUXdTX79sARw dWObd3tciVx4PqLg ZUGaFGW3oGmuDOiqu5Pr OGYiJ97guUMsl6V6MDUb wTeutRVySwIoxCD5kQ9l WGhougkqd5elhkbu Apbal6czwv22yY22B23b MRqcJZCkRYZ2IQYlTNQf qQxier8ddM5tIz1+IDxj c7wom1qsaIy9NiAu VZKkzsKbuRrqOPS9f3Lh Re11S7AguOstn8JqExg5 uz44kKFhq5F7fPP0TOvb CEWezJ5pDHsaMsQ7 TYGmCyWqbK92oCNrDGps Cu0mdIqhcWjcJC4oHUFf xnaqQSEbfS9pWDPgaCLv oEinLG9rPWCoxukx g357JxFgGEY1ERBwqAHe D8FqxU3mBfEhXKDoKBYw F4SfpAJgPMxjX594JCci NcM9LMGfhzKhR7Jp BQLqsWfcIgH6v5G2Ac3N q2DqohczTPA4CBmqRBKp YvFsMoAvAsG1O8XxJur4 LEGafTgyNR0uW9Om RTTnnycvrlajxAK0OHDq AMSnhZ88eMDcUIpuBb2t y9T8y093UXSdFQQkjT86 Yg7vnOafSRAtgGFQ oQ6rxmitm2wzznprBkLa NZYfPAc5SLt6ZMAayIfm AhQrOHO2PoA3JPA6pZSq iY2wlWuojlyufT3s Oyc+Y86yqU9sQXA3VDQ4 knycINAorjZyKT49HB30 R2YsDahqaPDvrAM+PGRp dbSjcJdvSM9uVjAx z0szu3FhOOuhX4QrKUGd DBrhKku9ZIPtJWK1hSA7 hP4uGQGvDOshr6O2qQI5 V8NywqCkul4ia4dy YLJlTIcfN69njIUef7H2 YIEjpZK8OTMydEqmTgXk tW22Peb+YGStuOrmv3Gy Liyfg1kpe9fytSw7 IjMwJSIgdmFsaWduPSJ0 h9ChCs41K66eVOgfVKCx YLKqFQGvKNFriUutdf2w hM9cVd9+PGNvbCB3 oRU4nG7zJGDkGbU2DRgk X579GlIsuJCvJpxpf0ou p6akxRp0KhApTGDttkTi fHhsJTH2t0XxIy76 W71qCTbzMWKcPBSvYMOv ZAQhvQiwxo5wtQ7oNr9+ CH7oi7dmkx59iM86zLU+ XMKbVRD1xTcoYIov PBWbdO0dRKwyDbU8RTDk DfXjcD08wNLgUVuaGa3r bFoppOaoUT3fKUPydjzc d807OzFll8qlJOKh bOUtWUckEPM3F23et2F2 HWLrNPZgKKF3fWB1iA3d bGlnbjogbGVmdDsgdmVy pNpdSCgfSOwgV389 IHRvcDsnPlBhdGllbnQg VkCeKIk3A8VkMlb8MAHj rGfdUU5kgIBnNEoeCo1x vTlovYzwJJ9sIBHr jxzhk283YpQsp1tzJSCl pOYjBOtzPKK8P86bs1G6 ENEbUAJzSKT7rYO8bN1k bGlnbjogbGVmdDsg boDfdZvnCOoqVTvnT271 IHRvcDsnPkJpcnRoIERh wCJ6MK16KQ05iLYuv0V5 mXR2C4ZkCDPzserf opfcfAJ8HDYtQCQknN02 Zs4kzUdmVh3dEGLeOSX3 PAGxaUXuO4WgpR5bBlWc GYTiVBDoW6DoxHKd VQqiQ465QTplBwB2FVVb ttHnS1EkCHOmkHgfPtF6 g4D0Ni6NB3S4DI25LG17 pKXfr6Q4gWQ8R1Ut DLFzifvnpvfupWT1EQJu DDIfbD07Gn2thYqlQr0l LVRcLWB7IOCrbLBvS9Do zJ8bCcUmALRhDHDs G5JhgQNkQGjvZ432KHnw AgM5JNJtkhXcT6GuIBRu xAxnIuT7c1X4Gd3HLTu0 FU85CZ18bLTfl5I7 kUX1X2UtNZZbovxiejia fDT9JDVdWFPhoD02El5k uPslXo2gBYUtXFD5JWVf dUDhS7HaqL2lXiUq HWUnRDWlB4QqeECpMIbs M699FQdbOmM5BOFudiKt I7HxVEObkCucFoV2i0T3 Ux5OMDHzGF79PQH7 uJO7UF34WN36X2ToYggj dGFibGU+PHRhYmxlIHdp ZHRoPScxMDAlJyBzdHls YZ8tDp6yYCPkVORp cIrbcFYdElUtu8etLHYu JKivFI0vnVukE5DrbJN8 KMCdq0z2Ci68R64wR6Hf dXA+MKOrbHR9uSS6 iF7tKqHtZcT4TXmmN837 BiVmpEEqQtvox3xqw9lb gQe7KaQ8ROIjtgUmxKnx LOJ5b4OrXa42K95v IHdpZHRoPSIxNSUiIHZh nPxqdq2tgA0vIg4+PGNv hXG1qDN0sG2jIaUgGeD3 GXujC058AqGnhJZy Mtvqs9cjb0ulcYe6IqAo PATuuaVehFqzHZH2m6An Sh24R8XljKxdv3GtBle2 wq72xXWxa5Q3pIC0 U6YiTGXnigvmhTEbrCil BR4rLKCyzqdbEFEacD1y IAMjV3b5XlWkAtC3RWme Y5TmtiH0ENRoiRPh XWvhUVB1X72iu4Y6HKEi SAPxRVL1iJR9aR6yvFft bjogbGVmdDsgdmVydGlj HWutCVebW745VQUj eEvnQZQwpA0pGNCrwKPf mKrmLX0oCNUgyjsoSwhI UkNJQSwgTUFSSUEgRDwv dGQ+TUDaHLT6oTpv LZtjBQZyeF9rRBZcR3g1 JgVjOnD3RIqxV7KeENNg mivzJg21sW0qSkYxUbZ8 MAibB7QmrcU6SJBd dTMeXNbpMQR5Z89dj2X7 ADFuCNZbRHW2dVS6kW2f bGlnbjogbGVmdDsgdmVy lVrbEDwmYQvhC352 PAXeoIafCkIeWfK8YzU7 HxH6N3VbGhd7SCJmzYei HE8whLUlENptTf2hsSwx kOipKA7bTPEnbgle CPIdyB7yMYTniAWdjOtk FO9hENIfixdgc459XyLn XGT6SCAezCMeU4CarG2c ZaVdAJYgHEJmQ3Hu dQMyXGkfB571YQelAkQ3 OGYvfiGrI0ObHZKdiShe AeS9l0D5Qr41HFDNZEMv czwvdGQ+PHRkIHN0 bSwmZEmmBFIluN0hAGYf G6w2NfWaDxT1DNicF6Xg GGGhhfvcJh56bO3aVgGb IrJ9IKdsA2VkciR8 ZYZhvGXaRKvdVTE5L09d i4A9ZVEpOQNtNLR7dNI6 vB2hvYftuyzzeNYaoIzj dmVydGljYWwtYWxp C303JZVicYpsZtRqrMJh ZTwvdGQ+KWJbEDH2jQyp ITpxQOXvhQ1wEKVvD0v1 XyXpLxQ2VDzgE3Kv VPLpaklhHx74dJ3zFvFz QmQ4ASaiS1MlkdL0ADKc aEVqAOlzCKD6B22qd7J9 DVYyBMYcGYA1fJY6 cZ3lzQjtugrrfODacAqy lrQpoJprQRppTDifW767 IUJryOodTnAqN1Wzbskv ZzwvdGQ+FW97gv39 L6IkFsapGwm3YWNlZED4 fTQ0uL5nUNSwYHxlr0U0 aST1I7FegfXvce5lk1cs SNPuJOpeD21zvIWz o1U7YTAqlIA7WZWqeZbh XcOkeX78Vif+PGNvbGdy i6KxRgqfh4qku7tswYh0 IjMwJSIgdmFsaWdu FBJ9z5YnEg24D96zRMfh ZHRoPSIzMCUiIHZhbGln vj5adL3rLr3+PGNvbCB3 oZJ1iF9wJsZyNjU2 ZJvpM986QaRfiWYhSvjx a9nyj7csaSm3GvSjZDBw rjDdwOzwRKI0g7ShCs23 O2LnsRqkf7RlLoj1 li47bJGlq9H7ePJ2V4Bk GOUslwyknSBusKskIZ8m NGAuzyflAMWsuF7lIISs N5l6OePhThP7LZmj U6YkerK3QYBsxGYmLLAg kTNGyL8egsegf9denbax HzDaGGRwIYo9WIk2KWJl fCbfXrXzCNQ1DuT2 ZNX7kJWogC8etIsuxscb dN7oPhq+XNo6i2iqpMCz IT1seRX3JY42WS30tCUm y4E6lZW8C1JhTOUi ctxmgucalML4PWTyZQRv zI73Dd7ubCjsIb9pGVQt MXO2TOBbeXLkK1YjmK1e QbYfWHWeXUCqX6Ad iXDcXLuhZ444LPcpUnO8 HOLvnuSdH8AlTSVhiAxi YgP0m3B0Wx5JRC86ON90 DW05vOOja5E3rNW6 D3FqFPEzdcgbabplcRZ3 IUOzFOTquS83Pq6ncQmj Rx2xTEKeAJD8ZYUvwJMh M8VmhK3vRxQiKOOh OUAxE9DytGIrJXygM372 VIfwAtU5OXEkbpYjK9Fd NGFueOckKjS5p8X7Lr2M Sm55KW03BE30gEPs t6I0lYM4S0NhNYQbeola vikbdUJ1LBYzSTPojF33 Zq1ujOjzOp0oYHLrJYX5 LKQzfYKuY4UjwF6y LyUpRYXdHPAwY6EtdFSq NKczR756YXzxOvH9ICMf pdReS6WuBCMadWlbUtQ6 y1N0Cz7WQUivefx9 W3LaVeuanBK+CE15WWRf YG35gOCbxJUvv8cjzPy9 PlWqIOGsILD1oGcyVFtz k6MsPIAwQ31jaNOm c2U6 (more content not included)... Normal [facility] Consent for Treatmenton Consent for Treatment [id number]#1.00CD:127 Normal [facility] COVID-19 ([facility])on 08-01-2021 SARS-CoV-2 (COVID-19) RNA RIDGE+probe Ql (Resp) Not detected Normal Not Detected [facility] Comment on above: Result Comment: This test result should be correlated with clinical presentations and medical history by a healthcare provider to determine its clinical significance. This assay was performed by a reverse transcriptase real-time polymerase chain reaction (rt PCR) method on the [email or web address] system. This test has been authorized only [...] or revoked sooner. Performed By: #### 2 [id number] #### [facility] [address] [place] [address] SARS-CoV-2 (COVID-19) RNA RIDGE+probe Ql (Unsp spec) Pass Normal Pass [facility] Comment on above: Performed By: #### 2 [id number] #### [facility] [address] [place] [address] Specimen source Nom (Unsp spec) Nasal Normal [facility] Comment on above: Performed By: #### 2 [id number] #### [facility] [address] [place] [address] COVID-19 ([facility])on 07-30-2021 ADMITTED TO INTENSIVE CARE UNIT FOR CONDITION OF INTEREST:FIND:PT: Unknown Normal [facility] Comment on above: Performed By: #### 2 [id number] #### [facility] [address] [place] [address] EMPLOYED IN A HEALTHCARE SETTING:FIND:PT: Unknown Normal [facility] Comment on above: Performed By: #### 2 [id number] #### [facility] [address] [place] [address] FIRST TEST FOR CONDITION OF INTEREST:FIND:PT: Unknown Normal [facility] Comment on above: Performed By: #### 2 [id number] #### [facility] [address] [place] [address] HAS SYMPTOMS RELATED TO CONDITION OF INTEREST:FIND:PT: Unknown Normal [facility] Comment on above: Performed By: #### 2 [id number] #### [facility] [address] [place] [address] HOSPITALIZED FOR CONDITION OF INTEREST:FIND:PT: Unknown Normal [facility] Comment on above: Performed By: #### 2 [id number] #### [facility] [address] [place] [address] STATUS:FIND:PT: Unknown Normal [facility] Comment on above: Performed By: #### 2 [id number] #### [facility] [address] [place] [address] RESIDES IN A CONGREGATE CARE SETTING:FIND:PT: Unknown Normal [facility] Comment on above: Performed By: #### 2 [id number] #### [facility] [address] [place] [address] CTA CHEST W CONTRASTon 01-14 CTA CHEST [...] Kwabena Peña MD 01/13/21 Final result Normal [facility] CBC Auto DifferentialOrdered By: Tita Palma on 01-13-2021 [facility] Eos # 0.10 [facility] Work Phone: Absolute Immature Granulocyte NOT REPORTED [facility] Phone: Absolute Lymph # 0.80 Low [facility] Work Phone: Absolute [place] # 0.50 [facility] Work Phone: Basophils (Bld) [#/Vol] 0.00 10*3/uL [facility] Work Phone: Basophils/100 WBC (Bld) 0 % 0 - 2 % [facility] Phone: Differential Type YES [facility] Work Phone: Eosinophils/100 WBC (Bld) 1 % 0 - 5 % [facility] Phone: Hematocrit (Bld) [Volume fraction] 42.0 % 36 - 46 % [facility] Work Phone: Hemoglobin.gastrointes tinal spec 1 Ql (Stl) 14.3 g/dL 12.0 - 16.0 g/dL [facility] Phone: Immature Granulocytes NOT REPORTED 0 % [facility] Work Phone: Interpretation and review of laboratory results Abnormal [facility] Phone: Lymphocytes/100 WBC (Bld) 11 % Low 15 - 40 % [employer] Work Phone: MCH (RBC) [Entitic mass] 29.5 pg 26 - 34 pg [employer] Phone: MCHC (RBC) [Mass/Vol] 34.1 g/dL 31 - 37 g/dL [facility] Work Phone: MCV (RBC) [Entitic vol] 86.5 fL 80 - 100 fL [employer] Work Phone: Monocytes/100 WBC (Bld) 7 % 4 - 8 % [employer] Work Phone: NRBC Automated NOT REPORTED per 100 WBC [employer] [facility] Work Phone: Platelet distribution width (Bld) [Ratio] 13.3 % 12.1 - 15.2 % [employer] Phone: Platelet Estimate NOT REPORTED [employer] Phone: Platelet mean volume (Bld) [Entitic vol] NOT REPORTED 6.0 - 12.0 fL [employer] Phone: Platelets (Bld) [#/Vol] 340 10*3/uL [employer] Phone: RBC (Bld) [#/Vol] 4.86 10*6/uL 4.0 - 5.2 m/uL [employer] Phone: RBC (Bld) [#/Vol] NOT REPORTED [facility] Phone: Segmented neutrophils/100 WBC (Bld) 81 % High 47 - 75 % [employer] Phone: Segs Absolute 6.30 [employer] Work Phone: WBC (Bld) [#/Vol] 7.8 10*3/uL [employer] Phone: WBC (Bld) [#/Vol] NOT REPORTED [employer] Phone: [employer] Phone: CBC with Diffon 01-13-2021 Abs. Basophil 0.00 k/uL Normal 0.0-0.2 [facility] Comment on above: Performed By: #### D DRE NARANJO, REJEC #### [facility] [address] [place] [address] Wire Brush Operator: Flash Jaramillo MD Abs.Neutrophil (Seg) 6.30 k/uL Normal 2.5-7.0 [facility] Comment on above: Performed By: #### D DRE NARANJO, REJEC #### [facility] [address] [place] [address] Wire Br[employer] Operator: Flash Jaramillo MD Auto Diff Performed YES Normal [facility] Comment on above: Performed By: #### DRE SIU, REJEC #### [facility] [address] [place] [address] Wire Br[employer] Operator: Flash Jaramillo MD Basophils/100 WBC (Bld) 0 % Normal 0-2 [facility] Comment on above: Performed By: #### DRE SIU, REJEC #### [facility] [address] [place] [address] Wire Br[employer] Operator: Flash Jaramillo MD Eosinophils (Bld) [#/Vol] 0.10 10*3/uL Normal 0.0-0.4 [facility] Comment on above: Performed By: #### Maris NARANJO CDP, REJEC #### [facility] [address] [place] [address] Wire Brush Operator: Flash Jaramillo MD Eosinophils/100 WBC (Bld) 1 % Normal 0-5 [facility] Comment on above: Performed By: #### Maris NARANJO CDP, REJEC #### [facility] [address] [place] [address] Wire Brush Operator: Flash Jaramillo MD Erythrocyte distribution width (RBC) [Ratio] 13.3 % Normal 12.1-15.2 [facility] Comment on above: Performed By: #### D DRE NARANJO, REJEC #### [facility] [address] [place], [place] [phone] Wire Brush Operator: Flash Jaramillo MD Hematocrit (Bld) [Volume fraction] 42.0 % Normal 36-46 [facility] Comment on above: Performed By: #### D DRE NARANJO, REJEC #### [facility] [address] [place] [address] Wire Brush Operator: Flash Jaramillo MD Hemoglobin (Bld) [Mass/Vol] 14.3 g/dL Normal 12.0-16.0 [facility] Comment on above: Performed By: #### DRE SIU, REJEC #### [facility] [address] [place] [address] Wire Brush Operator: Flash Jaramillo MD Lymphocytes (Bld) [#/Vol] 0.80 10*3/uL Low 1.0-4.8 [facility] Comment on above: Performed By: #### DRE SIU, REJEC #### [facility] [address] [place], [place] [phone] Wire Brush Operator: Flash Jaramillo MD Lymphocytes/100 WBC (Bld) 11 % Low 15-40 [facility] Comment on above: Performed By: #### DRE SIU, REJEC #### [facility] [address] [place] [address] Wire Brush Operator: Flash Jaramillo MD MCH (RBC) [Entitic mass] 29.5 pg Normal 26-34 [facility] Comment on above: Performed By: #### DRE SIU, REJEC #### [facility] [address] [place], [place] [id number] Wire Brush Operator: Flash Jaramillo MD MCHC (RBC) [Mass/Vol] 34.1 g/dL Normal 31-37 [facility] Comment on above: Performed By: #### D DRE NARANJO, REJEC #### [facility] [address] [place] [address] Wire Brush Operator: Flash Jaramillo MD MCV (RBC) [Entitic vol] 86.5 fL Normal 80-100 [facility] Comment on above: Performed By: #### D DRE NARANJO, REJEC #### [facility] [address] [place] [address] Wire Brush Operator: Flash Jaramillo MD Monocytes (Bld) [#/Vol] 0.50 10*3/uL Normal 0.0-1.0 [facility] Comment on above: Performed By: #### DRE SIU, REJEC #### [facility] [address] [place] [address] Wire Brush Operator: Flash Jaramillo MD Monocytes/100 WBC (Bld) 7 % Normal 4-8 [facility] Comment on above: Performed By: #### DRE SIU, REJEC #### [facility] [address] [place] [address] Wire Brush Operator: Flash Jaramillo MD Neutrophil (Seg) 81 % High 47-75 [facility] Comment on above: Performed By: #### DRE SIU, REJEC #### [facility] [address] [place] [address] Wire Brush Operator: Flash Jaramillo MD Platelets (Bld) [#/Vol] 340 10*3/uL Normal 140-450 [facility] Comment on above: Performed By: #### DRE SIU, REJEC #### [facility] [address] [place] [address] Wire Brush Operator: Flash Jaramillo MD RBC (Bld) [#/Vol] 4.86 10*6/uL Normal 4.0-5.2 [facility] Comment on above: Performed By: #### D DRE NARANJO, REJEC #### [facility] [address] [place] [address] Wire Brush Operator: Flash Jaramillo MD WBC (Bld) [#/Vol] 7.8 10*3/uL Normal 3.5-11.0 [facility] Comment on above: Performed By: #### D DRE NARANJO, REJEC #### [facility] [address] [place] [phone] Wire Brush Operator: Flash Jaramillo MD Abs.Imm.Granulocyte NOT REPORTED Normal 0.00-0.30 [facility] Comment on above: Performed By: #### D DRE NARANJO, REJEC #### [facility] [address] [place] [address] Wire Brush Operator: Flash Jaramillo MD Immature Granulocyte NOT REPORTED Normal 0 [facility] Comment on above: Performed By: #### D DRE NARANJO, REJEC #### [facility] [address] [place] [address] Wire Brush Operator: Flash Jaramillo MD MPV NOT REPORTED Normal 6.0-12.0 [facility] Comment on above: Performed By: #### D DRE NARANJO, REJEC #### [facility] [address] [place] [phone] Wire Brush Operator: Flash Jaramillo MD NRBC Automated NOT REPORTED Normal [facility] Comment on above: Performed By: #### D DRE NARANJO, REJEC #### [facility] [address] [place] [address] Wire Brush Operator: Flash Jaramillo MD Platelet Estimate NOT REPORTED Normal [facility] Comment on above: Performed By: #### D DRE NARANJO, REJEC #### [facility] [address] [place] [address] Wire Brush Operator: Flash Jaramillo MD RBC morphology finding Nom (Bld) NOT REPORTED Normal [facility] Comment on above: Performed By: #### D DRE NARANJO, REJEC #### [facility] [address] [place] [address] Wire Brush Operator: Flash Jaramillo MD WBC Morphology NOT REPORTED Normal [facility] Comment on above: Performed By: #### D JOSE A, DRE, REJEC #### [facility] [address] [place] [address] Wire Brush Operator: Flash Jaramillo MD CTA CHEST W CONTRASTOrdered By: Tita Palma on 01-13-2021 No evidence for acute large occlusive pulmonary embolism. No evidence for thoracic aortic aneurysm or dissection flap. No suspicious lung infiltrates or consolidation. Hepatic steatosis. Mild gastroesophageal wall thickening, correlate clinically. [employer] Phone: EXAMINATION: CTA CHEST W CONTRAST HISTORY: [...] distal esophagitis/wall lesion. No acute bony abnormality. [employer] Phone: More[employer], [employer] Incoming Radiant Results From [facility] - 01/13/2021 10:06 PM EDT EXAMINATION: CTA [...] steatosis. Mild gastroesophageal wall thickening, correlate clinically. [facility] Work Phone: [facility] Work Phone: Comp Metabolic Profon 2020 (cont.) Normal [facility] Comment on above: Result Comment: Aver age GFR for 50-59 years old: 93 mL/min/1.73sq m Chronic Kidney Disease: <60 mL/min/1.73sq m Kidney failure: <15 mL/min/1.73sq m eGFR calculated using average adult body mass. Additional eGFR calculator available at: http://www.[employer]/multiple_crcl_2011.htm Performed By: #### C P, TROPI #### [facility] [address] [place] [address] Wire Brush Operator: Flash Jaramillo MD Albumin [Mass/Vol] 4.3 g/dL Normal 3.5-5.2 [facility] Comment on above: Performed By: #### C P, TROPI #### [facility] [address] [place], [place] [address] Wire Brush Operator: Flash Jaramillo MD Alkaline Phos 165 U/L High 35-104 [facility] Comment on above: Performed By: #### C P, TROPI #### [facility] [address] [place], [place] [phone] Wire Brush Operator: Flash Jaramillo MD ALT [Catalytic activity/Vol] 24 U/L Normal 5-33 [facility] Comment on above: Performed By: #### C P, TROPI #### [facility] [address] [place], [place] [phone] Wire Brush Operator: Flash Jaramillo MD Anion gap [Moles/Vol] 10 mmol/L Normal 9-17 [facility] Comment on above: Performed By: #### C P, TROPI #### [facility] [address] [place], [place] [phone] Wire Brush Operator: Flash Jaramillo MD AST [Catalytic activity/Vol] 14 U/L Normal <32 [facility] Comment on above: Performed By: #### C P, TROPI #### [facility] [address] [place] [address] Wire Brush Operator: Flash Jaramillo MD Bilirubin [Mass/Vol] 0.24 mg/dL Low 0.30-1.20 [facility] Comment on above: Performed By: #### C P, TROPI #### [facility] [address] [place], [place] [phone] Wire Brush Operator: Flash Jaramillo MD BUN/CRE Ratio 16 Normal 9-20 [facility] Comment on above: Performed By: #### C P, TROPI #### [facility] [address] [place], [place] [phone] Wire Brush Operator: Flash Jaramillo MD Calcium [Mass/Vol] 9.9 mg/dL Normal 8.6-10.4 [facility] Comment on above: Performed By: #### C P, TROPI #### [facility] [address] [place], [place] [phone] Wire Brush Operator: Flash Jaramillo MD Chloride [Moles/Vol] 101 mmol/L Normal 98-107 [facility] Comment on above: Performed By: #### C P, TROPI #### [facility] [address] [place], [place] [phone] Wire Brush Operator: Flash Jaramillo MD CO2 [Moles/Vol] 24 mmol/L Normal 20-31 [facility] Comment on above: Performed By: #### C P, TROPI #### [facility] [address] [place], [place] [phone] Wire Brush Operator: Flash Jaramillo MD Creatinine [Mass/Vol] 1.04 mg/dL High 0.50-0.90 [facility] Comment on above: Performed By: #### C P, TROPI #### [facility] [address] [place], [place] [phone] Wire Brush Operator: Flash Jaramillo MD GFR, Amer >60 Normal >60 [facility] Comment on above: Performed By: #### C P, TROPI #### [facility] [address] [place], [place] [phone] Wire Brush Operator: Flash Jaramillo MD GFR,non Amer 55 mL/min Low >60 [facility] Comment on above: Performed By: #### C P, TROPI #### [facility] [address] [place], [place] [phone] Wire Brush Operator: Flash Jaramillo MD Glucose [Mass/Vol] 126 mg/dL High 70-99 [facility] Comment on above: Performed By: #### C P, TROPI #### [facility] [address] [place], [place] [phone] Wire Brush Operator: Flash Jaramillo MD Potassium [Moles/Vol] 4.2 mmol/L Normal 3.7-5.3 [facility] Comment on above: Performed By: #### C P, TROPI #### [facility] [address] [place], [place] [phone] Wire Brush Operator: Flash Jaramillo MD Protein [Mass/Vol] 7.9 g/dL Normal 6.4-8.3 [facility] Comment on above: Performed By: #### C P, TROPI #### [facility] [address] [place], [place] [phone] Wire Brush Operator: Flash Jaramillo MD Sodium [Moles/Vol] 135 mmol/L Normal 135-144 [facility] Comment on above: Performed By: #### C P, TROPI #### [facility] [address] [place], [place] [address] Wire Brush Operator: Flash Jaramillo MD Urea nitrogen [Mass/Vol] 17 mg/dL Normal 6-20 [facility] Comment on above: Performed By: #### C P, TROPI #### [facility] [address] [place], [place] [phone] Wire Brush Operator: Flash Jaramillo MD Albumin/Glob Ratio NOT REPORTED Normal 1.0-2.5 [facility] Comment on above: Performed By: #### C P, TROPI #### [facility] [address] [place], [place] [phone] Wire Brush Operator: Flash Jaramillo MD Staging: NOT REPORTED Normal [facility] Comment on above: Performed By: #### C P, TROPI #### [facility] [address] [place], [place] [phone] Wire Brush Operator: Flash Jaramillo MD Comprehensive Metabolic Pane lOrdered By: Tita Palma on 01-13-2021 Albumin [Mass/Vol] 4.3 g/dL 3.5 - 5.2 g/dL [employer] Phone: Albumin/Globulin Ratio NOT REPORTED [employer] Phone: ALP (Bld) [Catalytic activity/Vol] 165 U/L High 35 - 104 U/L [employer] Phone: ALT [Catalytic activity/Vol] 24 U/L 5 - 33 U/L [employer] Phone: Anion gap [Moles/Vol] 10 mmol/L 9 - 17 mmol/L [employer] Phone: AST [Catalytic activity/Vol] 14 U/L <32 [employer] Phone: Bilirubin [Mass/Vol] 0.24 mg/dL Low 0.30 - 1.20 mg/dL [employer] Phone: Calcium [Mass/Vol] 9.9 mg/dL 8.6 - 10. 4 mg/dL [employer] Phone: Chloride [Moles/Vol] 101 mmol/L 98 - 10 7 mmol/L [employer] Phone: CO2 [Moles/Vol] 24 mmol/L 20 - 31 mmol/L [employer] Phone: Creatinine [Mass/Vol] 1.04 mg/dL High 0.50 - 0.90 mg/dL [employer] Phone: Free PSA/Total PSA [Mass fraction] 7.9 g/dL 6.4 - 8.3 g/dL [employer] Phone: GFR >60 >60 mL/min [employer] Phone: GFR Non- 55 mL/min Low >60 [employer] Phone: GFR/1.73 sq M.predicted MDRD (S/P/Bld) [Vol rate/Area] [employer] Phone: Comment on above: Average GFR for 50-5 9 years old: 93 mL/min/1.73sq m Chronic Kidney Disease: <60 mL/min/1.73sq m Kidney failure: <15 mL/min/1.73sq m eGFR calculated using average adult body mass. Additional eGFR calculator available at: http://www.[employer]/multiple_crcl_2012.htm GFR/1.73 sq M.predicted MDRD (S/P/Bld) [Vol rate/Area] NOT REPORTED [employer] Phone: Glucose [Mass/Vol] 126 mg/dL High 70 - 99 mg/dL [employer] Phone: Interpretation and review of laboratory results Abnormal [employer] Phone: Potassium [Moles/Vol] 4.2 mmol/L 3.7 - 5.3 mmol/L [employer] Phone: Sodium [Moles/Vol] 135 mmol/L 135 - 144 mmol/L [employer] Phone: Urea nitrogen (BldV) [Mass/Vol] 17 mg/dL 6 - 20 mg/dL [employer] Phone: Urea nitrogen/Creatinine (Bld) [Mass ratio] 16 [employer] Phone: [employer] Phone: D-Dimer Teston 01-13-2021 D-Dimer Test 0.88 mg/L FEU High 0.00-0.59 [facility] Comment on above: Result Comment: [...] #### D JOSE A, CDP, REJEC #### [facility] [address] [place] [address] Wire Brush Operator: Flash Jaramillo MD D-Dimer, QuantitativeOrdered By: Tita Palma on 01-13-2021 D-Dimer, Quant 0.88 High [employer] Phone: Comment on above: When combined with [...] Interpretation and review of laboratory results Abnormal [employer] Phone: [employer] Phone: SPECIMEN REJECTIONOrdered By : Tita Palma on 01-13-2021 - NOT REPORTED [facility] Phone: Ordered Test CP TROP [facility] [employer] Phone: Reason for Rejection Unable to perform testing: Specimen hemolyzed. [employer] Phone: Specimen source Nom (Unsp spec) BLOOD IV START [facility] [employer] Phone: [facility] Phone: Specimen Rejectionon 021 Reason for rejection Unable to perform testing: Specimen hemolyzed. [facility] Comment on above: Performed By: #### D DRE NARANJO, REJEC #### [facility] [address] [place] [address] Wire Brush Operator: Flash Jaramillo MD Source of sample BLOOD IV START [facility] Comment on above: Performed By: #### D DRE NARANJO, REJEC #### [facility] [address] [place], [place] [phone] Wire Brush Operator: Flash Jaramillo MD Test ordered CP TROP [facility] Comment on above: Performed By: #### D DRE NARANJO, REJEC #### [facility] [address] [place] [address] Wire Brush Operator: Flash Jaramillo MD ----- NOT REPORTED [facility] Comment on above: Performed By: #### D DRE NARANJO, REJEC #### [facility] [address] [place], [place] [phone] Wire Brush Operator: Flash Jaramillo MD Troponinon 01-13-2021 Troponin, High Sens <6 Normal 0-14 [facility] Comment on above: Result Comment: High Sensitivity Troponin values cannot be compared with other Troponin methodologies. Patients with high levels of Biotin oral intake (i.e >5mg/day) may have falsely decreased Troponin levels. Samples collected within 8 hours of biotin intake may require additional information for diagnosis. Performed By: #### T ROPI #### [facility] [address] [place], [place] [phone] Wire Brush Operator: Flash Jaramillo MD Troponin Interp. NOT REPORTED Normal [facility] Comment on above: Performed By: #### T ROPI #### [facility] [address] [place], [place] [phone] Wire Brush Operator: Flash Jaramillo MD Troponin T NOT REPORTED Normal <0.03 [facility] Comment on above: Performed By: #### T ROPI #### [facility] [address] [place], [place] [phone] Wire Brush Operator: Flash Jaramillo MD Troponin, High Sens <6 Normal 0-14 [facility] Comment on above: Result Comment: High Sensitivity Troponin values cannot be compared with other Troponin methodologies. Patients with high levels of Biotin oral intake (i.e >5mg/day) may have falsely decreased Troponin levels. Samples collected within 8 hours of biotin intake may require additional information for diagnosis. Performed By: #### C P, TROPI #### [facility] [address] [place] [address] Wire Brush Operator: Flash Jaramillo MD Troponin Interp. NOT REPORTED Normal [facility] Comment on above: Performed By: #### C P, TROPI #### [facility] [address] [place] [address] Wire Brush Operator: Flash Jaramillo MD Troponin T NOT REPORTED Normal <0.03 [facility] Comment on above: Performed By: #### C P, TROPI #### [facility] [address] [place] [address] Wire Brush Operator: Flash Jaramillo MD TroponinOrdered By: Tita Palma on 01-13-2021 Troponin Interp NOT REPORTED [facility] Work Phone: Troponin T NOT REPORTED <0.03 ng/mL [employer] Work Phone: Troponin, High Sensitivity <6 0 - 14 ng/L [employer] Work Phone: Comment on above: High Sensitivity Troponin values cannot be compared with other Troponin methodologies. Patients with high levels of Biotin oral intake (i.e >5mg/day) may have falsely decreased Troponin levels. Samples collected within 8 hours of biotin intake may require additional information for diagnosis. [employer] Work Phone: Troponin Interp NOT REPORTED [facility] Work Phone: Troponin T NOT REPORTED <0.03 ng/mL [employer] Work Phone: Troponin, High Sensitivity <6 0 - 14 ng/L [employer] Phone: Comment on above: High Sensitivity Troponin values cannot be compared with other Troponin methodologies. Patients with high levels of Biotin oral intake (i.e >5mg/day) may have falsely decreased Troponin levels. Samples collected within 8 hours of biotin intake may require additional information for diagnosis. [employer] Phone: XR CHEST PORTABLEon 01-14-20 XR CHEST [...] Sarbjit Ramirez MD 01/13/21 Final result Normal [facility] XR CHEST PORTABLEOrdered By: Tita Palma on 01-13-2021 No focal consolidation, pneumothorax or pleural effusion. [employer] Phone: EXAM: XR CHEST PORTABLE HISTORY: Shortness of breath, chest pain. COMPARISON: None. TECHNIQUE: AP radiograph of the chest was performed. FINDINGS: No focal consolidation, pneumothorax or pleural effusion. There is mild elevation of the right hemidiaphragm. The cardiomediastinal silhouette is unremarkable. There are degenerative changes of the spine. [employer] Phone: [employer], [employer] Incoming Radiant Results From [facility] - 01/13/2021 8:24 PM EDT EXAM: XR CHEST PORTABLE HISTORY: Shortness of breath, chest pain. COMPARISON: None. TECHNIQUE: AP radiograph of the chest was performed. FINDINGS: No focal consolidation, pneumothorax or pleural effusion. There is mild elevation of the right hemidiaphragm. The cardiomediastinal silhouette is unremarkable. There are degenerative changes of the spine. IMPRESSION: No focal consolidation, pneumothorax or pleural effusion. [employer] Phone: [employer] Phone: Vital Signs Date Time Vital Sign Value Performing Clinician Facility 06-16-2023 10:00-0500 Body height 157.48 cm Samra Yehmond Other [facility] Other 06-16-2023 10:00-0500 Body mass index (BMI) [Ratio] 35.52 kg/m2 Samra Yehmond Other [facility] Other 06-16-2023 10:00-0500 Body temperature 98 [degF] Samra Yehmond Other [facility] Other 06-16-2023 10:00-0500 Body weight 88.09 kg Samra Yehmond Other [facility] Other 06-16-2023 10:00-0500 Diastolic blood pressure 80 mm[Hg] Samra Yehmond Other [facility] Other 06-16-2023 10:00-0500 Respiratory rate 18 /min Samra Yehmond Other [facility] Other 06-16-2023 10:00-0500 SaO2% (BldA) [Mass fraction] 95 % Samra Wick Other [facility] Other 06-16-2023 10:00-0500 Systolic blood pressure 132 mm[Hg] Samra Wick Other [facility] Other 09-20-2022 11:45-0500 Body height 157.48 cm Siobhan Meyers Other [facility] Other 09-20-2022 11:45-0500 Body mass index (BMI) [Ratio] 34.93 kg/m2 Siobhan Gonzalezault Other [facility] Other 09-20-2022 11:45-0500 Body temperature 98.3 [degF] Siobhan Gonzalezault Other [facility] Other 09-20-2022 11:45-0500 Body weight 86.64 kg Siobhan Meyers Other [facility] Other 09-20-2022 11:45-0500 Respiratory rate 18 /min Siobhan Gonzalezault Other [facility] Other 09-20-2022 11:45-0500 SaO2% (BldA) [Mass fraction] 98 % Siobhan Gonzalezault Other [facility] Other 06-30-2022 18:35-0500 Body height 157.48 cm Cassandra Dumont Other [facility] Other 06-30-2022 18:35-0500 Body mass index (BMI) [Ratio] 34.56 kg/m2 Cassandra Dumont Other [facility] Other 06-30-2022 18:35-0500 Body temperature 97.7 [degF] Cassandra Dumont Other [facility] Other 06-30-2022 18:35-0500 Body weight 85.73 kg Cassandra Dumont Other [facility] Other 06-30-2022 18:35-0500 Diastolic blood pressure 72 mm[Hg] Cassandra Dumont Other [facility] Other 06-30-2022 18:35-0500 Respiratory rate 18 /min Cassandra Dumont Other [facility] Other 06-30-2022 18:35-0500 SaO2% (BldA) [Mass fraction] 98 % Cassandra Dumont Other [facility] Other 06-30-2022 18:35-0500 Systolic blood pressure 126 mm[Hg] Cassandra Dumont Other [facility] Other 12-18-2021 16:55-0400 Body height 157.48 cm Siobhan Luigi Other [facility] Other 12-18-2021 16:55-0400 Body mass index (BMI) [Ratio] 32.92 kg/m2 Siobhan Luigi Other [facility] Other 12-18-2021 16:55-0400 Body temperature 98.9 [degF] Siobhan Luigi Other [facility] Other 12-18-2021 16:55-0400 Body weight 81.65 kg Siobhan Meyers Other [facility] Other 12-18-2021 16:55-0400 Respiratory rate 16 /min Siobhan Meyers Other [facility] Other 12-18-2021 16:55-0400 SaO2% (BldA) [Mass fraction] 95 % Siobhan Meyers Other [facility] Other 01-13-2021 22:34-0400 Diastolic blood pressure 80 mm[Hg] Tita Palma MD Work Phone: [employer] Work Phone: 01-13-2021 22:34-0400 Heart rate 78 /min Tita Palma MD Work Phone: [facility] Work Phone: 01-13-2021 22:34-0400 Respiratory rate 17 /min Tita Palma MD Work Phone: [facility] Work Phone: 01-13-2021 22:34-0400 Systolic blood pressure 134 mm[Hg] Tita Palma MD Work Phone: [facility] Work Phone: 01-13-2021 19:33-0400 Body temperature 98.01 [degF] Tita Palma MD Work Phone: [facility] Work Phone: 01-13-2021 19:33-0400 Body weight 79.38 kg Tita Palma MD Work Phone: [facility] Work Phone: 01-13-2021 19:33-0400 SaO2% (BldA) [Mass fraction] 99 % Tita Palma MD Work Phone: [facility] Work Phone: Encounters Encounter Date Encounter Type Care Provider Facility Start: 12-21-2023 End: 12-23-2023 ambulatory UNKNOWN PROVIDER Facility:[facility] Start: 12-21-2023 End: 12-23-2023 Patient encounter procedure Elba Elkins DDS Work Phone: [facility] Start: 12-14-2023 End: 12-16-2023 Patient encounter procedure Maribel Connors DDS Work Phone: [facility] Start: 12-14-2023 End: 12-16-2023 ambulatory UNKNOWN PROVIDER Facility:[facility] Start: 11-18-2023 End: 11-18-2023 ambulatory CHRIS A FELTER Not Available Start: 10-22-2023 End: 10-22-2023 ambulatory UNKNOWN PROVIDER Facility:[facility] Start: 10-01-2023 End: 10-01-2023 ambulatory CHRIS FELTER Not Available Start: 09-15-2023 End: 09-16-2023 ambulatory UNKNOWN PROVIDER Facility:[facility] Start: 09-10-2023 End: 09-10-2023 ambulatory [facility] Start: 07-30-2023 End: 07-30-2023 ambulatory [facility] Start: 06-29-2023 End: 06-29-2023 ambulatory CHRIS A FELTER Not Available Start: 06-16-2023 End: 06-16-2023 ambulatory Samra Wick Other [facility] Other Start: 06-16-2023 Office outpatient vi sit 15 minutes Samra Wick [facility] Start: 05-23-2023 Letter encounter Marisol gross Start: 01-05-2023 End: 01-05-2023 ambulatory [facility] Start: 12-09-2022 End: 12-09-2022 ambulatory [facility] Start: 10-30-2022 End: 10-30-2022 [facility] Start: 10-12-2022 End: 10-13-[address] ROMAIN CAN Facility:[facility] Start: 09-20-2022 End: 09-20-2022 ambulatory Siobhan Luigi Other [facility] Other Start: 09-20-2022 Office outpatient vi sit 15 minutes Siobhan Luigi [facility] Start: 06-30-2022 End: 06-30-2022 ambulatory Cassandra Dumont Other [facility] Other Start: 06-30-2022 Office outpatient vi sit 25 minutes Cassandra Dumont [facility] Start: 12-18-2021 End: 12-18-2021 ambulatory Siobhan Luigi Other [facility] Other Start: 12-18-2021 Office outpatient vi sit 25 minutes Siobhan Luigi [facility] Start: 07-30-2021 End: 10-29-2021 Patient encounter procedure MORALES ANGULO [facility] Start: 01-13-2021 End: 01-14-2021 Emergency department patient visit [facility] Start: 01-13-2021 End: 01-13-2021 Emergency department patient visit Tita Palma MD Work Phone: [facility] ED Comment on above: Chest pain, [...] MD Work Phone: Start: 01-13-2021 SPECIMEN REJECTION Bronw Palma MD Work Phone: Start: 01-13-2021 Ecg routine ecg w/le ast 12 lds w/i&r Tita Palma MD Work Phone: Plan of Treatment Date Care Activity Detail Author Start: 07-16-2030 DTaP/Tdap/Td vaccine (2 - Td or Tdap) DTaP/Tdap/Td vaccine (2 - Td or Tdap) [facility] [employer] Work Phone: Start: 07-16-2030 Tetanus vaccination Tetanus (Td or Tdap) Booster [facility] Start: 11-28-2028 Cholesterol [Mass/volume] in Serum or Plasma Cholesterol [facility] Start: 11-10-2026 Screening for malignant neoplasm of colon Cologuard (Stool DNA) [facility] Start: 06-06-2024 End: 06-06-2024 Patient encounter procedure 06/06/2024 10:40 AM EST Procedure Visit [address] [address] Pasquale Rosa DDS [address] [place] [id number] [facility] Start: 02-25-2024 End: 02-25-2024 Patient encounter procedure 02/25/2024 11:00 AM EDT Procedure Visit [facility] [address] [place] [address] Pasquale Rosa DDS [address] [place] [address] [facility] Start: 02-18-2024 End: 02-18-2024 Patient encounter procedure 02/18/2024 10:00 AM EDT Procedure Visit [facility] [address] [place] [address] Emory Devlin Syd [address] [place] [address] [facility] Start: 12-21-2023 End: 12-21-2023 Patient encounter procedure 12/21/2023 11:00 AM EDT Procedure Visit [facility] [address] [place] [address] Emory Devlin Syd [address] [place] [address] [facility] Start: 11-12-2023 Screening for malignant neoplasm of colon CRC Screening [facility] Start: 09-15-2023 End: 09-15-2023 Patient encounter procedure 09/15/2023 10:50 AM EST Procedure Visit [facility] [address] [place] [address] Pasquale Rosa, [facility] [address] [place] [address] [facility] Start: 2023 Hepatitis B (HBV) Vaccine (optional start 60+ years) Hepatitis B (HBV) Vaccine (optional start 60+ years) [facility] Start: 2023 RSV vaccine (optional 60+ years) RSV vaccine (optional 60+ years) [facility] Start: 03-26-2023 COVID-19 Vaccine ( season) COVID-19 Vaccine ( season) [facility] Start: 03-26-2023 Influenza vaccination Influenza Vaccine (#1) [facility] Start: 03-26-2021 Influenza vaccination Flu vaccine (Season Ended) [employer] Phone: Start: 2013 Screening for malignant neoplasm of breast Breast cancer screen [employer] Phone: Start: 2013 Screening for malignant neoplasm of colon Colon cancer screen colonoscopy [employer] Phone: Start: 2013 Shingles (RZV) Vaccine (1 of 2) Shingles (RZV) Vaccine (1 of 2) [facility] Start: 2013 Shingles Vaccine (1 of 2) Shingles Vaccine (1 of 2) [employer] Phone: Start: 2008 Cholesterol [Mass/volume] in Serum or Plasma Cholesterol [facility] Start: 2008 Screening for malignant neoplasm of colon [facility] Start: 2003 Lipid panel Lipid screen [employer] Phone: Start: 2003 Screening for malignant neoplasm of breast Mammography [facility] Start: 1984 Screening for malignant neoplasm of cervix [facility] Start: 1982 Hepatitis A (HAV) Vaccine (optional start 19+ years) Hepatitis A (HAV) Vaccine (optional start 19+ years) [facility] Start: 1982 Tetanus vaccination Tetanus (Td or Tdap) Booster [facility] Start: 1981 Hepatitis C screening Hepatitis C Antibody [facility] Start: 1981 Tetanus + diphtheria + acellular pertussis vaccine (product) Tdap [facility] Start: 1978 HIV screening [facility] Start: 1975 COVID-19 Vaccine (1) COVID-19 Vaccine (1) [employer] Phone: Start: 1963 COVID-19 Vaccine (#1) COVID-19 Vaccine (#1) [facility] Start: 1963 Hepatitis C screening Hepatitis C screen [employer] Phone: Start: 1963 Screening for malignant neoplasm of colon [facility] EKG 12 Lead EKG 12 Lead ECG Routine 01/13/2021 7:37 PM EDT [employer] Phone: Immunizations Immunization Date Immunization Notes Care Provider Jose De Jesus borden 05-26-2021 influenza, injectabl e, quadrivalent, preservative free Maribel Waylon DDS Work Phone: [facility] 07-16-2020 tetanus toxoid, redu lima diphtheria toxoid, and acellular pertussis vaccine, adsorbed Maribel Waylon DDS Work Phone: [facility] Payers Date Payer Category Payer Unknown SP/UNINSURED [facility] FIN[employer]CIAL [employer] EVALUATION 2023-Present Other [id number] 2020 Medicaid [id number] 1963 Unknown [id number] 1963 Unknown [id number] 1963 Unknown [id number] 1963 Unknown [id number] 1963 Unknown [id number] 1963 Unknown [id number] 1963 Unknown [id number] 1963 Unknown [id number] 1963 Unknown [id number] 1959 Medicaid [id number] Social History Date Type Detail Facility Start: 01-13-2021 Tobacco smoking stat [facility] Never smoker [employer] Phone: Start: 01-13-2021 Tobacco use and exposure Never used [facility] Start: 01-13-2021 Alcohol intake Lifetime non-d melchor (finding) [employer] Phone: Start: 01-13-2021 History SDOH Alcohol Frequency 1 [facility] Work Phone: Start: 01-13-2021 Alcohol Comment occasional [employer] Work Phone: Start: 1965 Sex Assigned At Not on file [email or web address] Phone: Exposure to SARS-CoV -2 (event) Not sure [facility] Sex Assigned At Female [facility] Tobacco smoking stat [facility] Tobacco smoking consumption unknown [facility] Clinical Notes 12-18-2021 to 12-21-2023 Elba Elkins, [facility] - 12/21/2023 11:02 AM EDTGMaribel grayson [facility] - 12/14/2023 11:08 AM EDT Note Date & Type Note Facility 12-21-2023 History of Present illness Narrative ----- Thursday, December 21, 2023 at 11:49:45 AM ----- ----- Provider: Nicky Elkins, -- Clinic: [facility] ----- COMPOSITE DENOMINATIONAL Patient is scheduled for Taoist on tooth #9 surface F5. Reviewed Medical History. Pt exhibited the following conditions: No significant medical history Patient is ready for treatment. Topical Benzocaine gel applied at the injection site for 2 minutes. Administered 1 carpules of Lidocaine, 2% with Epinephrine 1:100,000,. isolation achieved. Decay/existing buddhism removed, cavity prepared. Selectively etched enamel with 37% phosphoric acid, rinsed, and blot dried. OptiBond hills applied and light-cured. Condensed packable composite shade A3 in light cured increments using Retraction cord with hemostatic gel Finished with finishing burs, checked occlusion, verified proximal contacts and buddhism was polished. Rinsed and suctioned intraorally, advised patient to not eat until local anesthesia wears off. POST OPERATIVE Periapical (single) RADIOGRAPH TAKEN. Next Visit: [facility] ----- Signed on Thursday, December 21, 2023 at 3:48:00 PM ----- ----- Provider: [id number] - Chelsea Sun DDS -- Clinic: [facility] ----- documented in this encounter [facility] 12-14-2023 History of Present illness Narrative ----- Thursday, December 14, 2023 at 12:33:43 PM ----- ----- Provider: [id number] Resident Avi -- Clinic: [facility] ----- COMPOSITE DENOMINATIONAL Patient is scheduled for Taoist on tooth #18 surface DO. Reviewed Medical History. Pt exhibited the following conditions: No significant medical history Patient is ready for treatment. Topical Benzocaine gel applied at the injection site for 2 minutes. Administered 1 carpules of Lidocaine, 2% with Epinephrine 1:100,000,. Cotton roll isolation achieved. Decay/existing buddhism removed, cavity prepared. Selectively etched enamel with 37% phosphoric acid, rinsed, and blot dried. Xeno IV hills applied and light-cured. Condensed packable composite shade A2 in light cured increments using [employer]. Finished with finishing burs, checked occlusion, verified proximal contacts and buddhism was polished. Rinsed and suctioned intraorally, advised patient to not eat until local anesthesia wears off. POST OPERATIVE Periapical (single) RADIOGRAPH TAKEN. Next Visit: Bret ----- Signed on Thursday, December 14, 2023 at 2:29:42 PM ----- ----- Provider: [id number] - Pasquale Martin DDS -- Clinic: [facility] ----- documented in this encounter [facility] 09-10-2023 Note Patient here for fol low up 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 Still gets intermittent skips . Denies chest pain, SOB, and lightheadedness/syncope. Review of Systems Cardiovascular: Positive for irregular heartbeat and palpitations. All other systems reviewed and are negative. [facility] 09-10-2023 Note Cardiovascular Medic ine [facility] SUBJECTIVE Sandro Severino is a 58 [...] the bottom of her feet and toes. -- 12/09/2022 She has been having some intermittent [...] Left lower l (more content not included)... [facility] 07-30-2023 Note Cardiovascular Medic [facility] SUBJECTIVE Sandro Severino is a 58 y.o. [...] the bottom of her feet and toes. -- 12/09/2022 She has been having some intermittent [...] Behavior: Behavior anna (more content not included)... [facility] 07-30-2023 Note Review of Systems Cardiovascular: Positive for palpitations. Palpitaions every now and then pt feels well Pt also started januvia and cymbolta [facility] 06-16-2023 Evaluation note Encounter Date Diagnosis Assessment [...] no improvement in 2 to 3 days [facility] 06-13-2023 NotePatient here for 1 mo [...] All other systems reviewed and are negative.[facility] 01-05-2023 NoteCardiovascular Medicine [facility] SUBJECTIVE Chief Complaint Patient presents with [...] - 8.4 Testing/Pr (more content not included)...[facility] [address]-25-[address]-17-2023 Note Cardiovascular Medicine [facility] SUBJECTIVE Chief Complaint Patient presents with [...] She c/o feeli (more content not included)...[facility] 12-09-2022 NotePatient is here today for a 1 month follow up. Review of Systems Constitutional: Positive for decreased appetite and weight loss. Musculoskeletal: Positive for arthritis and back pain. Neurological: Positive for dizziness, headaches and loss of balance. All other systems reviewed and are negative.[facility] 10-30-2022 NoteCardiology Clinic Note Chief Complaint: hospital [...] a past medical history of Diabetes mellitus ([facility]). Surgical History She has a past surgical [...] as needed Pacheco Burns MD Interventional Cardiology [facility]04-07-2023 NoteReview of Systems Cardiovascular: Positive for chest pain. Neurological: Positive for headaches. All other systems reviewed and are negative.[facility] 10-12-2022 NoteCARDIAC STRESS TEST Requesting Physician: Procedure [...] seen. EKG portion is negative for ischemia.[id number] Evaluation note* Encounter Date Diagnosis Assessment Notes [...] care provider if no improvement of symptoms [facility] 12-06-2022 Evaluation note* Encounter Date Diagnosis [...] other viral communicable diseases (ICD-10 - Z20.828) [facility] 05-26-2022 Evaluation note* Encounter Date Diagnosis Assessment Notes Treatment Notes Treatment Clinical Notes November, Cough (ICD-10 - R05.9) November, COVID-19 (ICD-10 - U07.1) Today you tested positive for the COVID virus. This mean you need to follow all CDC quarantine guidelines [facility] at [email or web address] It is important to rest, increase [...] UP AND WHEN TO SEEK EMERGENCY TREATMENT [facility] Other Evaluation + Plan note No data available for this section [facility] Chest pain, unspecified type- Primary Anxiety state Anxiety state, unspecified documented in this encounter [employer] Phone: History general Narrative - Reported* Type Description Date Medical History Anxiety Medical History HTN (hypertension) Surgical History ablasion uterine [facility] Other History general Narrative - Reported* Type Description Date Medical History Anxiety Medical History HTN (hypertension) Surgical History ablasion uterine Hospitalization History Kidney Infection 1994 Hospitalization History chest pain 2022 [facility] Other Hospital Discharge instructions* Attachments The following attachments cannot be sent through Care Everywhere. * Chest Pain (Salvadorean) * Anxiety Disorder (Salvadorean) documented in [employer] [employer] Phone: Hospital Discharge instructions No data available for this section [facility] Summary Purpose Family History No Family [...] ONCE PRN, Other, Starting on 01/13/21 at 2058, For 1 dose 2118 (Given - Provid er: Leonila Fernando) INFORMATION SOURCE (unrecogn ized section and content) DATE CREATED AUTHOR 01/14/2021 Mirian Guerrier spienriqueta DATE CREATED AUTHOR AUTHOR'S ORGANIZ ATION 02/11/2022 [facility] DATE CREATED AUTHOR AUTHOR'S ORGANIZ ATION 10/15/2022 [facility] DATE CREATED AUTHOR AUTHOR'S ORGANIZ ATION 09/12/2023 [facility] DATE CREATED AUTHOR AUTHOR'S ORGANIZ ATION 11/20/2023 [facility] DATE CREATED AUTHOR AUTHOR'S ORGANIZ ATION 12/27/2023 [facility] FOR RECORDS PERTAINING TO PATIENTS WHO ARE [...] BE BASED ON THE PRIMARY CLINICAL RECORDS. [employer] provides no warranty or guarantee of the accuracy or completeness of information in this document.
[2024-01-18 15:12] LABS: Alanine Aminotransferase 157 U/L (14-59); Albumin Globulin Ratio 0.9; Albumin Level 3.5 g/dL (3.4-5.0); Alkaline Phosphatase 185 U/L (46-116); Aspartate Amino Transferase 49 U/L (15-37); Bilirubin Direct 0.1 mg/dL (0.0-0.2); Bilirubin Total 0.5 mg/dL (0.2-1.0); Globulin 4.1 g/dL; TSH W/ REFLEX FT4 4.248 uIU/mL (0.358-3.740); Total Protein 7.6 g/dL (6.4-8.2)
[2024-01-18 15:38] LABS: Free T4 0.87 ng/dL (0.76-1.46)
== END 2024-01-18 14:25 | disposition home or self-care (01) ==
LOC: LAB 14:25
PROVIDERS: PCP Nurse Practitioner; Visit Provider Nurse Practitioner
DX: E03.9 Hypothyroidism, unspecified (principal); K76.0 Fatty (change of) liver, not elsewhere classified
CPT/HCPCS: 36415; 80076; 84439; 84443

== ENCOUNTER 2024-02-25 09:06 | Outpatient (OUT) | payer OTHER, SELFPAY ==
--- OUTSIDE RECORDS SUMMARY | 2024-02-25 09:10 | XMS_ITS | CCD ---
Author Organization 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 Name Role Phone Unavailable Primary Care Provider [...] / neomycin 3.5 mg/ml / polymyxin b 54260 unt/ml otic solution (1 source) Aminoglycoside Antibacterial, Polymyxin-class Antibacterial, Corticosteroid Start: 09-20-19 Bfrslslx-Mzgxdspcd-RH 3.5-93894-4 4 drops into affected ear Otic Three [...] Nausea Episodic Other aftercare (1 source) Other snf (current) drug therapy; Translations: [OTH SENIOR CARE CURRENT DRUG THERAPY] Onset: 10-15-2022 Episodic Other [...] Interpretation Reference Range Facility Progress Noteson 12-21-2023 [employer] Etcher Stripper Authentication Interface Message Text ----- Thursday, December 21, 2023 at 11:49:45 AM ----- ----- Provider: Resident Arianne -- Clinic: [place] ----- COMPOSITE JUDAISM Patient is scheduled for Mormon on tooth #9 surface F5. Reviewed Medical History. Pt exhibited the following conditions: No significant medical history Patient is ready for treatment. Topical Benzocaine gel applied at the injection site for 2 minutes. Administered 1 carpules of Lidocaine, 2% with Epinephrine 1:100,000,. isolation achieved. Decay/existing restorationism removed, cavity prepared. Selectively etched enamel with 37% phosphoric acid, rinsed, and blot dried. OptiBond hills applied and light-cured. Condensed packable composite shade A3 in light cured increments using Retraction cord with hemostatic gel Finished with finishing burs, checked occlusion, verified proximal contacts and restorationism was polished. Rinsed and suctioned intraorally, advised patient to not eat until local anesthesia wears off. POST OPERATIVE Periapical (single) RADIOGRAPH TAKEN. Next Visit: Restorative ----- Signed on Thursday, December 21, 2023 at 3:48:00 PM ----- ----- Provider: [id number] - Chelsea Sun DDS -- Clinic: [place] ----- Normal [facility] [employer] [facility] Progress Noteson 12-14-2023 [employer] Etcher Stripper Authentication Interface Message Text ----- Thursday, December 14, 2023 at 12:33:43 PM ----- ----- Provider: [id number] - Resident Anahi -- Clinic: [place] ----- COMPOSITE JUDAISM Patient is scheduled for Mormon on tooth #18 surface DO. Reviewed Medical History. Pt exhibited the following conditions: No significant medical history Patient is ready for treatment. Topical Benzocaine gel applied at the injection site for 2 minutes. Administered 1 carpules of Lidocaine, 2% with Epinephrine 1:100,000,. Cotton roll isolation achieved. Decay/existing restorationism removed, cavity prepared. Selectively etched enamel with 37% phosphoric acid, rinsed, and blot dried. Xeno IV hills applied and light-cured. Condensed packable composite shade A2 in light cured increments using Automatrix. Finished with finishing burs, checked occlusion, verified proximal contacts and restorationism was polished. Rinsed and suctioned intraorally, advised patient to not eat until local anesthesia wears off. POST OPERATIVE Periapical (single) RADIOGRAPH TAKEN. Next Visit: Bret ----- Signed on Thursday, December 14, 2023 at 2:29:42 PM ----- ----- Provider: [id number] - Pasquale Martin DDS -- Clinic: [place] ----- Normal [facility] [employer] [facility] Progress Noteson 10-22-2023 [employer] Etcher Stripper Authentication Interface Message Text ----- Sunday, October 22, 2023 at 12:00:23 PM ----- ----- Provider: [id number] - Amina Mac Hygienist -- Clinic: [place] ----- [facility], Pt is ready for tx. Pt is [...] 6 month recall. Examination completed 09/15/2023 NV: BRTE see chart RECALL/ 6months. Amina Gann RDH Normal [facility] [employer] [facility] Progress Noteson 09-15-2023 [employer]cher Stripper Authentication Interface Message Text ----- Friday, September 15, 2023 at 11:18:51 AM ----- ----- Provider: [id number] - Delbert Bejarano Resident -- Clinic: [place] ----- INITIAL/COMPREHENSIV E EXAM Patient presents for [...] 2023 at 11:23:03 AM ----- ----- Provider: [id number] Geovanny Martin DDS -- Clinic: [place] ----- Normal [facility] [facility] Office Visiton 09-10-2023 Follow-up visit [id number] Sandro Severino D 1965 F Date Provider Department Center 09/10/2023 PACHECO GUILLORY Family History Problem Relation Age of Onset No Known Problems Mother No Known Problems Father No Known Problems Sister No Known Problems Brother Family Status - Relation Status Age at Mother Father Sister Brother Level of Service:32318 AL OFFICE/OUTPATIENT ESTABLISHED LOW MDM 20 MIN Normal [facility] Office Visiton 07-30-2023 Follow-up visit [id number] Sandro Severino 1965 F Date Provider Department Center 07/30/2023 PACHECO GUILLORY [facility] No family history on file Level of Service:99835 AL OFFICE/OUTPATIENT ESTABLISHED LOW MDM 20 MIN Normal [facility] COVID/FLU RT-PCRon SARS-CoV-2 (COVID-19) RNA RIDGE+probe Ql (Unsp spec) Negative [facility] Other COVID/FLU RT-PCR Negative [facility] Other Office Visiton 01-05-2023 Follow-up visit [id number] Sandro Severino 1965 F Date Provider Department Center 01/05/2023 TERESSA SOLOMON [facility] No family history on file Level of Service:37066 AL OFFICE/OUTPATIENT ESTABLISHED LOW MDM 20-29 MIN Reason for Visit and Comments: Hypertension [444128] Normal [facility] 36on 12-24-2022 36 Her BP is more often running above goal. Would like to see her average BP running <130/90. We can either have her resume her losartan/hydrochloro thiazide or we can increase her carvedilol to 12.5mg BID. Normal [facility] Office Visiton 12-09-2022 Follow-up visit [id number] Sandro Severino 1965 F Date Provider Department Center 12/09/2022 TERESSA SOLOMON [facility] No family history on file Level of Service:55304 AL OFFICE/OUTPATIENT ESTABLISHED MOD MDM 30-39 MIN Reason for Visit and Comments: Follow-up [246547] - 1 mo. Follow up Normal [facility] Office Visiton 10-30-2022 Follow-up visit [id number] Sandro Severino 1965 F Date Provider Department Center 10/30/2022 3848-PACHECO BURNS CARD [facility] No family history on file Level of Service:72505 AL OFFICE/OUTPATIENT ESTABLISHED MOD MDM 30-39 MIN Reason for Visit and Comments: Chest Pain [027978] - f/u tbh hypertension chest pain pt states last night she was having some chest pain and headache last night Normal [facility] CBC AUTO DIFFon 10-13-2022 BASO # 0.1 103/ul Normal 0.0-0.1 [facility] [place] Comment on above: Performed By: #### P OCGLUC #### [facility] [address] [address] [address] Gibson Jin Basophils/100 WBC (Bld) 1.0 % Normal 0.2-2.0 [facility] [place] Comment on above: Performed By: #### P OCGLUC #### [facility] [address] [address] [address] Gibson Jin EO # 0.2 103/ul Normal 0.0-0.7 [facility] [place] Comment on above: Performed By: #### P OCGLUC #### [facility] [address] [address] [address] Gibson Jin Eosinophils/100 WBC (Bld) 3.9 % Normal 0.9-7.0 [facility] [place] Comment on above: Performed By: #### P OCGLUC #### [facility] [address] [address] [address] Gibson Jin Erythrocyte distribution width (RBC) [Ratio] 12.4 % Normal 11.0-15.0 [facility] [place] Comment on above: Performed By: #### P OCGLUC #### [facility] [address] [place] [address] Dr. Gibson Jin Hematocrit (Bld) [Volume fraction] 43.4 % Normal 36.0-48.0 [facility] [place] Comment on above: Performed By: #### P OCGLUC #### [facility] [address] [address] [address] Gibson Jin Hemoglobin (Bld) [Mass/Vol] 14.7 g/dL Normal 12.0-16.0 [facility] [place] Comment on above: Performed By: #### P OCGLUC #### [facility] [address] [address] [address] Gibson Jin IG # 0.09 10e3/ul Critically high 0.00-0.03 [facility] Comment on above: Performed By: #### P OCGLUC #### [facility] [address] [address] [address] Gibson Jin IG % 1.5 % Critically high 0.0-0.5 [facility] Comment on above: Performed By: #### P OCGLUC #### [facility] [address] [address] [address] Gibson Jin LYMPH # 1.2 103/ul Normal 1.2-3.8 [facility] [place] Comment on above: Performed By: #### P OCGLUC #### [facility] [address] [address] [address] Gibson Jin Lymphocytes/100 WBC (Bld) 19.4 % Critically low 20.5-60.0 [facility] [place] Comment on above: Performed By: #### P OCGLUC #### [facility] [address] [address] [address] Gibson Jin MANUAL DIFF REQ NO Normal [facility] Comment on above: Performed By: #### P OCGLUC #### [facility] [address] [address] [address] Gibson Jin MCH (RBC) [Entitic mass] 30.2 pg Normal 26.7-34.0 [facility] [place] Comment on above: Performed By: #### P OCGLUC #### [facility] [address] [place] [address] Dr. Gibson Jin MCHC (RBC) [Mass/Vol] 33.9 g/dL Normal 29.9-35.2 [facility] [place] Comment on above: Performed By: #### P OCGLUC #### [facility] [address] [address] [address] Gibson Jin MCV (RBC) [Entitic vol] 89.1 fL Normal 81.0-99.0 [facility] [place] Comment on above: Performed By: #### P OCGLUC #### [facility] [address] [address] [address] Gibson Jin MONO # 0.4 103/ul Normal 0.3-0.8 [facility] [place] Comment on above: Performed By: #### P OCGLUC #### [facility] [address] [place] [address] Dr. Gibson Jin Monocytes/100 WBC (Bld) 6.9 % Normal 1.7-12.0 [facility] [place] Comment on above: Performed By: #### P OCGLUC #### [facility] [address] [place] [address] Dr. Gibson Jin NEUT # 4.1 103/ul Normal 1.4-6.5 [facility] [place] Comment on above: Performed By: #### P OCGLUC #### [facility] [address] [place] [address] Dr. Gibson Jin Neutrophils/100 WBC (Bld) 67.3 % Normal 43.0-75.0 [facility] [place] Comment on above: Performed By: #### P OCGLUC #### [facility] [address] [place] [address] Dr. Gibson Jin Platelet mean volume (Bld) [Entitic vol] 10.3 fL Normal 9.5-13.5 [facility] [place] Comment on above: Performed By: #### P OCGLUC #### [facility] [address] [place] [address] Dr. Gibson Jin PLT 273 103/ul Normal 150-450 [facility] [place] Comment on above: Performed By: #### P OCGLUC #### [facility] [address] [place] [address] Dr. Gibson Jin RBC 4.87 106/ul Normal 4.20-5.40 [facility] [place] Comment on above: Performed By: #### P OCGLUC #### [facility] [address] [place], [place] [address] Dr. Gibson Jin WBC 6.1 103/ul Normal 4.0-11.0 [facility] [place] Comment on above: Performed By: #### P OCGLUC #### [facility] [address], [place] [address] Dr. Gibson Jin ECHOCARDIO M/2D COMPLETEon 0 10-13-2022 ECHOCARDIO M/2D COMPLETE Patient: SANDRO SEVERINO Exam Date: 10/13/2022 : 1965 Gender:F Ordering : FELIBERTO TROTTER . Admission #: [id number] Family : Order #: [id number] CLICK HERE TO VIEW EXAM ECHOCARDIOGRAM REPORT [...] 15:43 Normal [facility] GLYCOHEMOGLOBIN A1Con 2022 ADA RECOMMENDATION SEE BELOW Normal [facility] Comment on above: Result Comment: ADA RECOMMENDED LIMIT 4.0 - 6.0 ADA THERAPEUTIC TARGET < 7.0 ACTION SUGGESTED > 7.0 Performed By: #### A 1C #### [facility] [address] [place] [address] Dr. Gibson Jin Glucose [Mass/Vol] 197 mg/dL Normal [facility] Comment on above: Performed By: #### A 1C #### [facility] [address] [address] [address] Gibson Jin HbA1c (Bld) [Mass fraction] 8.5 % Critically high 4.5-6.2 [facility] [place] Comment on above: Performed By: #### A 1C #### [facility] [address] [address] [address] Gibson Jin LIPID PROFILEon 10-13-2022 CHOL-HDL RATIO NORM SEE BELOW Normal [facility] Comment on above: Result Comment: 3.3 - 4.4 LOW RISK 4.4 - 7.1 AVERAGE RISK 7.1 - 11.0 MODERATE RISK >11.0 HIGH RISK Performed By: #### T SH, CMP, LIPID #### [facility] [address] [address] [address] Gibson Jin Cholesterol [Mass/Vol] 167 mg/dL Normal <=200 [facility] Comment on above: Performed By: #### T SH, CMP, LIPID #### [facility] [address] [address] [address] Gibson Jin Cholesterol in HDL [Mass/Vol] 45 mg/dL Normal 40-60 [facility] [place] Comment on above: Performed By: #### T SH, CMP, LIPID #### [facility] [address] [place] [address] Dr. Gibson Jin Cholesterol in LDL [Mass/Vol] 93.4 mg/dL Normal [facility] [place] Comment on above: Performed By: #### T SH, CMP, LIPID #### [facility] [address] [address] [address] Gibson Jin Cholesterol.total/Chol esterol in HDL [Mass ratio] 3.7 {ratio} Normal [facility] [place] Comment on above: Performed By: #### T SH, CMP, LIPID #### [facility] [address] [place] [address] Dr. Gibson Jin HDL NORMAL > or = 60 mg/dl - LOW CARDIOVASCULAR RISK <40 mg/dl - HIGH CARDIOVASCULAR RISK Normal [facility] [place] Comment on above: Performed By: #### T SH, CMP, LIPID #### [facility] [address] [address] [address] Gibson Jin LDL CALC NORMAL SEE BELOW Normal [facility] Comment on above: Result Comment: <100 mg/dl OPTIMAL 100 - 129 mg/dl NEAR OR ABOVE OPTIMAL 130 - 159 mg/dl BORDERLINE HIGH 160 - 189 mg/dl HIGH >190 mg/dl VERY HIGH Performed By: #### T SH, CMP, LIPID #### [facility] [address] [place], [place] [address] Dr. Gibson Jin Triglyceride [Mass/Vol] 143 mg/dL Normal <=150 [facility] [place] Comment on above: Performed By: #### T SH, CMP, LIPID #### [facility] [address], [place] [address] Dr. Gibson Jin VLDL CALC 28.6 mg/dL Normal [facility] Comment on above: Performed By: #### T SH, CMP, LIPID #### [facility] [address], [place] [address] Dr. Gibson iJn NM STRESS/REST MULTIon 10-13 NM STRESS/REST MULTI Patient: SANDRO SEVERINO Exam Date: 10/13/2022 : 1965 Gender:F Ordering : TERESSA OLIVEROS [facility] Admission #: [id number] Family : FELIBERTO TROTTER . Order #: [id number] CLICK HERE TO VIEW EXAM RADIOLOGY REPORT [...] 15:00 Normal [facility] POINT OF CARE GLUCOSEon 09-24 Glucose [Mass/Vol] 372 mg/dL Critically high 74-106 [facility] Comment on above: Performed By: #### P OCGLUC #### [facility] [address] [place] [address] Dr. Gibson Jin Glucose [Mass/Vol] 131 mg/dL Critically high 74-106 [facility] Comment on above: Performed By: #### P OCGLUC #### [facility] [address] [place] [address] Dr. Gibson Jin PROF 14(COMP METB)on 023 Albumin [Mass/Vol] 3.3 g/dL Critically low 3.4-5.0 [facility] Comment on above: Performed By: #### T SH, CMP, LIPID #### [facility] [address] [place] [address] Dr. Gibson Jin Albumin/Globulin [Mass ratio] 0.9 {ratio} Normal [facility] [place] Comment on above: Performed By: #### T SH, CMP, LIPID #### [facility] [address] [address] [address] Gibson Jin ALP [Catalytic activity/Vol] 123 U/L Critically high 46-116 [facility] [place] Comment on above: Performed By: #### T SH, CMP, LIPID #### [facility] [address] [place] [address] Dr. Gibson Jin ALT [Catalytic activity/Vol] 223 U/L Critically high 14-59 [facility] [place] Comment on above: Performed By: #### T SH, CMP, LIPID #### [facility] [address] [address] [address] Gibson Jin Anion gap [Moles/Vol] 10.0 mmol/L Normal [facility] Comment on above: Performed By: #### T SH, CMP, LIPID #### [facility] [address] [address] [address] Gibson Jin AST [Catalytic activity/Vol] 113 U/L Critically high 15-37 [facility] [place] Comment on above: Performed By: #### T SH, CMP, LIPID #### [facility] [address] [address] [address] Gibson Jin Bilirubin [Mass/Vol] 0.7 mg/dL Normal 0.2-1.0 [facility] [place] Comment on above: Performed By: #### T SH, CMP, LIPID #### [facility] [address] [address] [address] Gibson Jin Calcium [Mass/Vol] 9.1 mg/dL Normal 8.5-10.1 [facility] Comment on above: Performed By: #### T SH, CMP, LIPID #### [facility] [address] [address] [address] Gibson Jin Chloride [Moles/Vol] 102 mmol/L Normal 98-107 [facility] [place] Comment on above: Performed By: #### T SH, CMP, LIPID #### [facility] [address] [address] [address] Gibson Jin CO2 [Moles/Vol] 30.0 mmol/L Normal 21.0-32.0 [facility] Comment on above: Performed By: #### T SH, CMP, LIPID #### [facility] [address] [address] [address] Gibson Jin Creatinine [Mass/Vol] 0.73 mg/dL Normal 0.55-1.02 [facility] [place] Comment on above: Performed By: #### T SH, CMP, LIPID #### [facility] [address] [address] [address] Gibson Jin EGFR-AF GREEK >60 Normal >=60 [facility] Comment on above: Performed By: #### T SH, CMP, LIPID #### [facility] [address] [address] [address] Gibson Jin EGFR-NON AF GREEK >60 Normal >=60 [facility] Comment on above: Performed By: #### T SH, CMP, LIPID #### [facility] [address] [address] [address] Gibson Jin Globulin (S) [Mass/Vol] 3.5 g/dL Normal [facility] [place] Comment on above: Performed By: #### T SH, CMP, LIPID #### [facility] [address] [place] [address] Dr. Gibson Jin Glucose [Mass/Vol] 165 mg/dL Critically high 74-106 [facility] Comment on above: Performed By: #### T SH, CMP, LIPID #### [facility] [address] [place] [address] Dr. Gibson Jin Potassium [Moles/Vol] 4.0 mmol/L Normal 3.5-5.1 [facility] [place] Comment on above: Performed By: #### T SH, CMP, LIPID #### [facility] [address] [place] [address] Dr. Gibson Jin Protein [Mass/Vol] 6.8 g/dL Normal 6.4-8.2 [facility] Comment on above: Performed By: #### T SH, CMP, LIPID #### [facility] [address] [place] [address] Dr. Gibson Jin Sodium [Moles/Vol] 138 mmol/L Normal 136-145 [facility] Comment on above: Performed By: #### T SH, CMP, LIPID #### [facility] [address] [place] [address] Dr. Gibson Jin Urea nitrogen [Mass/Vol] 14.0 mg/dL Normal 7.0-18.0 [facility] [place] Comment on above: Performed By: #### T SH, CMP, LIPID #### [facility] [address] [place] [address] Dr. Gibson Jin Urea nitrogen/Creatinine [Mass ratio] 19.2 mg/mg Normal [facility] Comment on above: Performed By: #### T JENNIFER, CMP, LIPID #### [facility] [address] [address] [address] Gibson Jin TSHon 10-13-2022 TSH 3.011 uIU/mL Normal 0.358-3.[address] [facility] Comment on above: Performed By: #### T SH, CMP, LIPID #### [facility] [address] [address] [address] Gibson Jin US SINGLE QUAD RT [...] DELL WINN Date: 2022-10-13 13:22 Normal [facility] CBC AUTO DIFFon 10-12-2022 BASO # 0.1 103/ul Normal 0.0-0.1 [facility] [place] Comment on above: Performed By: #### C BC #### [facility] [address] [address] [address] Gibson Jin Basophils/100 WBC (Bld) 1.0 % Normal 0.2-2.0 [facility] [place] Comment on above: Performed By: #### C BC #### [facility] [address] [address] [address] Gibson Jin EO # 0.2 103/ul Normal 0.0-0.7 [facility] [place] Comment on above: Performed By: #### C BC #### [facility] [address] [place] [address] Dr. Gibson Jin Eosinophils/100 WBC (Bld) 2.2 % Normal 0.9-7.0 [facility] [place] Comment on above: Performed By: #### C BC #### [facility] [address] [place] [address] Dr. Gibson Jin Erythrocyte distribution width (RBC) [Ratio] 12.1 % Normal 11.0-15.0 [facility] [place] Comment on above: Performed By: #### C BC #### [facility] [address] [place] [address] Dr. Gibson Jin Hematocrit (Bld) [Volume fraction] 43.1 % Normal 36.0-48.0 [facility] Comment on above: Performed By: #### C BC #### [facility] [address] [place] [address] Dr. Gibson Jin Hemoglobin (Bld) [Mass/Vol] 15.1 g/dL Normal 12.0-16.0 [facility] [place] Comment on above: Performed By: #### C BC #### [facility] [address] [place] [address] Dr. Gibson Jin IG # 0.06 10e3/ul Critically high 0.00-0.03 [facility] Comment on above: Performed By: #### C BC #### [facility] [address] [place] [address] Dr. Gibson Jin IG % 0.8 % Critically high 0.0-0.5 [facility] Comment on above: Performed By: #### C BC #### [facility] [address] [place] [address] Dr. Gibson Jin LYMPH # 1.5 103/ul Normal 1.2-3.8 [facility] Comment on above: Performed By: #### C BC #### [facility] [address] [place] [address] Dr. Gibson Jin Lymphocytes/100 WBC (Bld) 20.1 % Critically low 20.5-60.0 [facility] Comment on above: Performed By: #### C BC #### [facility] [address] [place] [address] Dr. Gisbon Jin MANUAL DIFF REQ NO Normal [facility] Comment on above: Performed By: #### C BC #### [facility] [address] [place] [address] Dr. Gibson Jin MCH (RBC) [Entitic mass] 30.6 pg Normal 26.7-34.0 [facility] [place] Comment on above: Performed By: #### C BC #### [facility] [address] [place] [address] Dr. Gibson Jin MCHC (RBC) [Mass/Vol] 35.0 g/dL Normal 29.9-35.2 [facility] [place] Comment on above: Performed By: #### C BC #### [facility] [address] [place] [address] Dr. Gibson Jin MCV (RBC) [Entitic vol] 87.2 fL Normal 81.0-99.0 [facility] [place] Comment on above: Performed By: #### C BC #### [facility] [address] [place] [address] Dr. Gibson Jin MONO # 0.5 103/ul Normal 0.3-0.8 [facility] [place] Comment on above: Performed By: #### C BC #### [facility] [address] [place] [address] Dr. Gibson Jin Monocytes/100 WBC (Bld) 6.5 % Normal 1.7-12.0 [facility] [place] Comment on above: Performed By: #### C BC #### [facility] [address] [place] [address] Dr. Gibson Jin NEUT # 5.0 103/ul Normal 1.4-6.5 [facility] Comment on above: Performed By: #### C BC #### [facility] [address] [place] [address] Dr. Gibson Jin Neutrophils/100 WBC (Bld) 69.4 % Normal 43.0-75.0 [facility] [place] Comment on above: Performed By: #### C BC #### [facility] [address] [address] [address] Gibson Jin Platelet mean volume (Bld) [Entitic vol] 10.6 fL Normal 9.5-13.5 [facility] [place] Comment on above: Performed By: #### C BC #### [facility] [address] [address] [address] Gibson Jin PLT 281 103/ul Normal 150-450 [facility] Comment on above: Performed By: #### C BC #### [facility] [address] [address] [address] Gibson Jin RBC 4.94 106/ul Normal 4.20-5.40 [facility] [place] Comment on above: Performed By: #### C BC #### [facility] [address] [place] [address] Dr. Gibson Jin WBC 7.3 103/ul Normal 4.0-11.0 [facility] [place] Comment on above: Performed By: #### C BC #### [facility] [address] [address] [address] Gibson Jin Covid-19 PCR ([facility])on 09-24 SARS-CoV-2 (COVID-19) RNA RIDGE+probe Ql (Unsp spec) Not detected Normal NOT DETECTED [facility] Comment on above: Result Comment: When diagnostic [...] for this test is supported by the Music Publicist of Health and Human Service's declaration that [...] used). Performed By: #### P OCGLUC #### [facility] [address] [place] [address] Dr. Gibson Jin D-DIMERon 10-12-2022 D-DIMER 0.34 mg/L FEU Normal <=0.59 [facility] Comment on above: Performed By: #### P OCGLUC #### [facility] [address] [address] [address] Gibson Jin D-DIMER COMMENTS SEE BELOW Normal [facility] Comment on above: Result Comment: [...] hospitalization. Performed By: #### P OCGLUC #### [facility] [address] [place] [address] Dr. Gibson Jin DRUG SCREEN RAPID (URINE)on 10-12-2022 AMP Negative Normal NEGATIVE [facility] Comment on above: Performed By: #### P OCGLUC #### [facility] [address] [place] [address] Dr. Gibson Jin BAR Negative Normal NEGATIVE [facility] Comment on above: Performed By: #### P OCGLUC #### [facility] [address] [place] [address] Dr. Gibson Jin BUP Negative Normal NEGATIVE [facility] Comment on above: Performed By: #### P OCGLUC #### [facility] [address] [place] [address] Dr. Gibson Jin BZO Negative Normal NEGATIVE [facility] Comment on above: Performed By: #### P OCGLUC #### [facility] [address] [place] [address] Dr. Gibson Jin CANDACE Negative Normal NEGATIVE [facility] Comment on above: Performed By: #### P OCGLUC #### [facility] [address] [place] [address] Dr. Gibson Jin CUT-OFFS SEE BELOW Normal [facility] Comment on above: Result Comment: AMP (Amphetamine): 500ng/mL, BAR (Barbituates): 200 ng/mL, BZO (Benzodiazepines): 150 ng/mL, BUP (Buprenorphine): 10 ng/mL, CANDACE (Cocaine): 150 ng/mL, mAMP (Methamphetamine): 500 ng/mL, MTD (Methadone): 200 ng/mL, OPI (Opiates): 100 ng/mL, OXY (Oxycodone): 100 ng/mL, PCP (Phencyclidine): 25 ng/mL, PPX (Propoxyphene): 300 ng/mL, THC (Cannabinoids): 50 ng/mL, TCA (Trycyclic Antidepressants): 300 ng/mL Performed By: #### P OCGLUC #### [facility] [address] [place] [address] Dr. Gibson Jin DRUG CUT HEADER DRUG CLASS TEST SYSTEM CUT-OFF CONCENTRATIONS ARE FOLLOWS: Normal [facility] Comment on above: Performed By: #### P OCGLUC #### [facility] [address] [place] [address] Dr. Gibson Jin mAMP Negative Normal NEGATIVE [facility] Comment on above: Performed By: #### P OCGLUC #### [facility] [address] [place] [address] Dr. Gibson Jin MTD Negative Normal NEGATIVE [facility] Comment on above: Performed By: #### P OCGLUC #### [facility] [address] [place] [address] Dr. Gibson Jin OPI Positive Abnormal NEGATIVE [facility] Comment on above: Performed By: #### P OCGLUC #### [facility] [address] [place] [address] Dr. Gibson Jin OXY Negative Normal NEGATIVE [facility] Comment on above: Performed By: #### P OCGLUC #### [facility] [address] [place] [address] Dr. Gibson Jin PCP Negative Normal NEGATIVE [facility] Comment on above: Performed By: #### P OCGLUC #### [facility] [address] [address] [address] Gibson Jin PPX Negative Normal NEGATIVE [facility] Comment on above: Performed By: #### P OCGLUC #### [facility] [address] [address] [address] Gibson Jin TCA Negative Normal NEGATIVE [facility] Comment on above: Performed By: #### P OCGLUC #### [facility] [address] [address] [address] Gibson Jin THC Negative Normal NEGATIVE [facility] Comment on above: Performed By: #### P OCGLUC #### [facility] [address] [place] [address] Dr. Gibson Jin POINT OF CARE GLUCOSEon 09-24 Glucose [Mass/Vol] 220 mg/dL Critically high 74-106 [facility] Comment on above: Performed By: #### P OCGLUC #### [facility] [address] [place] [address] Dr. Gibson Jin Glucose [Mass/Vol] 298 mg/dL Critically high 74-106 [facility] Comment on above: Performed By: #### P OCGLUC #### [facility] [address] [place] [address] Dr. Gibson Jin PROF 14(COMP METB)on 023 Albumin [Mass/Vol] 3.7 g/dL Normal 3.4-5.0 [facility] Comment on above: Performed By: #### C KARLIE HSTROPN #### [facility] [address] [place] [address] Dr. Gibson Jin Albumin/Globulin [Mass ratio] 1.0 {ratio} Normal [facility] Comment on above: Performed By: #### C AKRLIE HSTROPN #### [facility] [address] [place] [address] Dr. Gibson Jin ALP [Catalytic activity/Vol] 175 U/L Critically high 46-116 [facility] Comment on above: Performed By: #### C MP, HSTROPN #### [facility] [address] [address] [address] Gibson Jin ALT [Catalytic activity/Vol] 167 U/L Critically high 14-59 [facility] Comment on above: Performed By: #### C MP, HSTROPN #### [facility] [address] [address] [address] Gibson Jin Anion gap [Moles/Vol] 10.6 mmol/L Normal [facility] Comment on above: Performed By: #### C MP, HSTROPN #### [facility] [address] [address] [address] Gibson Jin AST [Catalytic activity/Vol] 49 U/L Critically high 15-37 [facility] Comment on above: Performed By: #### C MP, HSTROPN #### [facility] [address] [place] [address] Dr. Gibson Jin Bilirubin [Mass/Vol] 0.4 mg/dL Normal 0.2-1.0 [facility] Comment on above: Performed By: #### C MP, HSTROPN #### [facility] [address] [address] [address] Gibson Jin Calcium [Mass/Vol] 9.1 mg/dL Normal 8.5-10.1 [facility] Comment on above: Performed By: #### C MP, HSTROPN #### [facility] [address] [address] [address] Gibson Jin Chloride [Moles/Vol] 102 mmol/L Normal 98-107 [facility] Comment on above: Performed By: #### C MP, HSTROPN #### [facility] [address] [address] [address] Gibson Jin CO2 [Moles/Vol] 26.8 mmol/L Normal 21.0-32.0 [facility] Comment on above: Performed By: #### C MP, HSTROPN #### [facility] [address] [address] [address] Gibson Jin Creatinine [Mass/Vol] 0.90 mg/dL Normal 0.55-1.02 [facility] Comment on above: Performed By: #### C MP, HSTROPN #### [facility] [address] [place] [address] Dr. Gibson Jin EGFR-AF GREEK >60 Normal >=60 [facility] Comment on above: Performed By: #### C MP, HSTROPN #### [facility] [address] [address] [address] Gibson Jin EGFR-NON AF GREEK >60 Normal >=60 [facility] Comment on above: Performed By: #### C MP, HSTROPN #### [facility] [address] [place] [address] Dr. Gibson Jin Globulin (S) [Mass/Vol] 3.6 g/dL Normal [facility] Comment on above: Performed By: #### C MP, HSTROPN #### [facility] [address] [place] [address] Dr. Gibson Jin Glucose [Mass/Vol] 288 mg/dL Critically high 74-106 [facility] Comment on above: Performed By: #### C MP, HSTROPN #### [facility] [address] [place] [address] Dr. Gibson Jin Potassium [Moles/Vol] 3.4 mmol/L Critically low 3.5-5.1 [facility] Comment on above: Performed By: #### C MP, HSTROPN #### [facility] [address] [place] [address] Dr. Gibson Jin Protein [Mass/Vol] 7.3 g/dL Normal 6.4-8.2 [facility] Comment on above: Performed By: #### C MP, HSTROPN #### [facility] [address] [place] [address] Dr. Gibson Jin Sodium [Moles/Vol] 136 mmol/L Normal 136-145 [facility] Comment on above: Performed By: #### C MP, HSTROPN #### [facility] [address] [place] [address] Dr. Gibson Jin Urea nitrogen [Mass/Vol] 13.0 mg/dL Normal 7.0-18.0 [facility] Comment on above: Performed By: #### C MP, HSTROPN #### [facility] [address] [place], [place] [address] Dr. Gibson Jin Urea nitrogen/Creatinine [Mass ratio] 14.4 mg/mg Normal [facility] Comment on above: Performed By: #### C MP, HSTROPN #### [facility] [address] [address] [address] Gibson Jin TROPONIN, HIGH SENSITIVITYon 10-12-2022 HSTROP <4.0 Normal 4.0-51.3 [facility] Comment on above: Result Comment: CUT- OFF POINTS HAVE BEEN ESTABLISHED BASED ON THE FOURTH UNIVERSAL DEFINITIONS OF MYOCARDIAL INFARCTION. THE UPPER REFERENCE LIMIT (URL) OF TROPONIN, DEFINED THE 99TH PERCENTILE OF cTnI DISTRIBUTION IN A REFERENCE POPULATION, HAS BEEN CONFIRMED THE DECISION THRESHOLD FOR SD DIAGNOSIS. Performed By: #### P OCGLUC #### [facility] [address] [address] [address] Gibson Jin HSTROP <4.0 Normal 4.0-51.3 [facility] Comment on above: Result Comment: CUT- OFF POINTS HAVE BEEN ESTABLISHED BASED ON THE FOURTH UNIVERSAL DEFINITIONS OF MYOCARDIAL INFARCTION. THE UPPER REFERENCE LIMIT (URL) OF TROPONIN, DEFINED THE 99TH PERCENTILE OF cTnI DISTRIBUTION IN A REFERENCE POPULATION, HAS BEEN CONFIRMED THE DECISION THRESHOLD FOR SD DIAGNOSIS. Performed By: #### C MP, HSTROPN #### [facility] [address] [address] [address] Gibson Jin XR CHEST 1 Von [...] 10:36 Normal [facility] COVID + FLU Quick Testingon 09-20-2022 SARS-CoV-2 (COVID-19) RNA RIDGE+probe Ql (Unsp spec) Negative [facility] Other COVID + FLU Quick Testing Negative [facility] Other Quick Strepon 09-20-2022 S. pyogenes Org specific cx Ql (Throat) Negative [facility] Other Quick Strep [facility] Other COVID/FLU/RSV RT-PCRon 06-30 SARS-CoV-2 (COVID-19) RNA RIDGE+probe Ql (Unsp spec) Negative [facility] Other COVID/FLU/RSV RT-PCR Negative [facility] Other Registrationon 02-04-2022 Registration [id number]# 1.00CD:127 [facility] 01-09-2022 Consent [id number] #1.00CD:127 [facility] COVID/FLU RT-PCRon SARS-CoV-2 (COVID-19) RNA RIDGE+probe Ql (Unsp spec) Positive [facility] Other COVID/FLU RT-PCR Negative [facility] Other Coding Summary.on 08-04-2021 Coding Summary. CD:[id number] Gh0bWw+PGhlYWQ+PE1FV JJcA81zcDWidQ5XN7jBP P1TRZDIUBKUKH3DSV9on DG5NOwiP3PgvqOf XonxvVTsVU03VIq1GFG4 uLmwWIefiP7osVDyL6z0 JfNeMQ35xL26IZmtJJPj NmQ3QoFgkliyfQQl Q1nrJiXwiVZqHeo+PHRh YmxlIHdpZHRoPScxMDAl IvEecUcaBJ2zDl4uWCGi LWNvbGxhcHNlOiBj t2cqIDGcGRvwGJ8rtXdu D9OnsYI5HVTfy0r6Ok80 dHI+HRYzIGM9tUhsIDsl v620UeVfo3trXEU2 dSSxFHbuLFQ4K12mi4Q3 SSGtDFXkGKN7eTP4nJ6y zOhpixzyX2HkpTTjDnS0 BJM4rZVlkX2qpPyw zdnboN6xAir+B30RVI4T DMGBEA3FXud1E2MgQpne dHI+HH72XEHxZS12vQUq sCTdo7gabJx2ZbJz CIGqAQC5cLrnGWlfp0Hv BQWzO48gjAKdt4O9ENVu rVfyvJMtIpZwqWA1pF0h HBiqfdixi2ynsxca Krxtk9liyy30kU21O27r ZKlwZDTcCGE7FFFfSCEw wXreei2haV9sLc7+IDxj h4xmj7tfoBr4JvWh IKEjenAwuNojKLW8v4Bh Sm97E7NgdPylu0WuOca6 te05xPRvv3K1sCH6JErk KHDokO8pYFeeJyT1 YNMmHdApfJ33qPJuGOya La4pvXzioVowZY4kRBDy mrzbYTUceF2xWPVbyNXq gBfbMF5wFVOithwd n874OiMqKHT6DIXapSSn U2PmrJ5mAsLwIVOtUKPb S6UbxVZjYZsxE729GBgq JwH4NHPcugXlF7Pq BHTwbTcpRqT3v6O5Gj5R c6KlvdgbRHF6NXjbXKFi DcCqVaOzUgJ2C6GySyk3 UVOyzPqdNV3lF5Va FATtkrrmuprcaCU9UQDe VJJulC30vMZqJKntXh5e j5C8t888JMKhUAMjnN58 Jf0nlSbiJRIwaYOE hW4mczpws4hcniiiHeLi VUOhLFf9LPr0USCdmItb UrOgFPB1KiK2GLP2kIEj mZ5upFupyjcngF0p Oyc+Y84xqY8tTZX1MQP2 hvntCUEzzeKoWF84ND95 V9FqWavfkGEqjYE+PGRp sgNwzMlgUO1pJlOs o5zgu5MjWApaI6FtKGTi FIwzJmj0ABCnQYZ8xMV6 pA7bRKNmHGzyb3R2pBK6 S2ErjlEitk3vj8vw XIAdKRhqX00reGShg6G7 HORgnKQ6OJEzjVkzPaWc xW64Rjp+TOHwaRote7Dz Epycy0nzh7cfzYp0 IjMwJSIgdmFsaWduPSJ0 h1NmLe07Z65jZOimXQYw AWUyLRPbDXKjoDnuvw2l sJ6bLx4+PGNvbCB3 xTH7zQ1eZVXqBmA6MGgc W984OwHbsEGzEpxxg6hu q9avtEk7DtGaCNMzbeRi rOcaKVB9s8EnHx83 B22vKJjmHNHnXYAdMNKb WZEwqXkgud7uvN1gUm5+ ZF4of3orxp94mM46fCW+ KPRpNMP1iCyjVIwz ZJKmyL2zGQdvPyA7ETNk SlBevP96gZLeFGayWu9t xOjtkVzyGL6oOKDzzxqt f204FdTzp5smJPRl dJVbUCuiTOK4W99cq0X0 MQDyTRBmTDW2bHD9mJ8g bGlnbjogbGVmdDsgdmVy iEvsYFyyYWvlJ121 IHRvcDsnPlBhdGllbnQg VjLhWSu1Z5CkNlg9AAXn tCxpKZ2zkKAgREjdFj1g hFmlyXfgLW5rEUFu tvghz268QhKhi0coMBLp gYQeKZeiZAV1Q02lq5U7 HKLvNLBlCTS1eVN7jY4j bGlnbjogbGVmdDsg rtSmvVcfODifOZxjN421 IHRvcDsnPkJpcnRoIERh iZK2VN37PX55aFCmw7I2 uGM7L4HbBJFrhsjd tkgwwQS4XFSlKWEaaI25 Cz6edOoxCc0mXEGpESN1 MGYwnJJeD7HqlE3zUeNr SGFjPWImI1XdcNZq DOhwM060UVuoKmB6ERXf suTtQ8EsSPKzzDmdLvW9 f7I7Zf7NY7H4NR43TS19 pEUlx0H6eHM5Q2Kq MZEwnfnufgbzuCP6EAJj FLBthX27Fr0xnThnYs4d BETtTRL1WZBnmRZbP9Np kK3tElAcZITmJFMq P6WhtPMlMJcvT314SDat PqF2HGXugaYnK2WeJMVr bUgnFqN4q0X4Ku4NMYy5 RZ71YZ49aRVgq7C4 jAI8T0ItPJIchbksbrkk aDE1GJFdTQQebN47An7t vKdlHr0dXSHeLXD0BPFs kRCpB3TfgC8bTfMy CRCbCLJuE1LptUCvLOrg O154GBwpEiO0RWQlyqMh R9OeHKAafJxvHlR8r5Q4 Pt8RRQGbUY05JJD2 cQN5XU15VU03X8DpNvis dGFibGU+PHRhYmxlIHdp ZHRoPScxMDAlJyBzdHls KL1sZn2pKIHhEMYb wEvdcYIzTkPeq0owLNGm MIcnTF2hjCodL5ReyBB3 KXCma0d7Ux72V00rE4Hk dXA+LFAxsIJ1wFM2 fH8uWsDpBiO1BYpbZ466 DyGhdEOsJykej6pdz5rg eZr1JfI0SKAppnPqcAmk LJJ8o1YmSj21X07c IHdpZHRoPSIxNSUiIHZh iLuvvh5njL3eVu3+PGNv oAY4hXC1wL0kBhRkIpC2 IKxoE828XyNgrPXi Iqwfr2jda1kunDt6HeFb FDFlzzPpuTolBKV6o6Cq Zo14B5IwfQdlh8TuYvr1 kj35fFDpi1H9iCX6 Q7ZyTBTmnoikhZFvtIhk LZ1gBFOtinprUQVxaM0f VYOjO1w0BtHuDvD0YVtn B0KgfzZ2DLXzfGIm VKstYOP8E49dl6E6TBDy ASLhTRU8iMK5lJ2jaHal bjogbGVmdDsgdmVydGlj OHzkQFxcN830JFCb eTkcJFNrnM5aIGKhsKKf kEhiVS2mSFXjeuauXsmV UkNJQSwgTUFSSUEgRDwv dGQ+OZAtBKC1vQmu SZseSCFphP3iFGXpA7g9 NjVbExM2MEnyX4IqMPMx cmywHd45lB2uDlLiBnI7 CIwlT1GzzcI6WVLa nOLxGSskEEU0L26ed8N5 JBVzJLNoPFQ6iKA1nF5b bGlnbjogbGVmdDsgdmVy zJsgJXdnHJbvU128 HAImzBbiMdHhKwM7SoL4 CaE9U4MgIxh9PKEonXwr WI1rrQMpHGkmJa1ciMtw wQttXU6wMTNiirzs TRQqzB1nBOMssJJtdOgz RY5eKVHncwusb647YqYj SML0ZHPbiNJtU2OsaT7h JbPmLGZySPQxL8Hk jIZtANjjC141QKqtJlD9 RURcqwNmB2QmGAVviEuz YvZ4u0V2If00ISOMJSWs czwvdGQ+PHRkIHN0 jObrBJjwFDVzvD8rRRRw D3r6XaRqMqR8JYwnY7Tr UKVclezoDe74rS8kXlKu PbK0JRizV8JfwkF0 VFPbwEQoCXfxRFR9K76k m8O5GUIbQYZsLJU3mNY7 yE0ihPempurotEVjuLnm dmVydGljYWwtYWxp G345NWNzuDziCtYucHKd ZTwvdGQ+RUPoPFR4ePrj JJccNALmkK8wLXSfY5z1 EuEoNdA4JCgdZ8Gg XOFvpmajPs02cS6aPoYc BkD6SHrwG8GqtzR6NDJz iEBlHHbxSKG7S01hi2F4 IKQbRFTkJMV8cHC7 wU3iwZfgoevgpQCmzRca daRnvBhaSXjaZFtpW242 FRDbzBfpWcNlB4Tmnkao ZzwvdGQ+XC82qq81 L2AyMmchDrc1VLPiVZK8 cPH4nR2dXWAzDGrpk1Y7 sSR1F9SkqgMnyh6xm1dr KEKeYIemB98tsTPx d4X9GWFawHD0KQIgeMdi CbMivX20Bmz+PGNvbGdy o7VjUswgt3woo1asxBm1 IjMwJSIgdmFsaWdu AAG6i3IfNw50U95lULys ZHRoPSIzMCUiIHZhbGln fx5skY6hSz2+PGNvbCB3 bLK6lP6aWfRsGiA5 FPfyO704OwThhEQxOcgy b9uxf9aaqWe3LoDfLUXn zoMokCilTNQ3w1RnFg72 F2UsnDfzf3LnEtu8 vk70qPOav8I2wBM3Z4Hw DMQjhohhnSVdsYfhEL2r DJYkhzgcZTLwyZ9qPJSf A4p7ZzRmCmQ7FUgo W2UkmkJ0AQFvbCIuZHQw gSUEfE9fslmzm5eshlqn OjIlESCnSEp8XKo4QOBg rAtmVgFuYLS5MeE0 YWB5tBKgqT1kuXmuewah dW2eEub+UWv5l6xlaRNi JW4wbBK9KV84DL71tCFp b4S5dUR2C4SkXUXq vcrunlolgGR5IGXgPZLv dI42Ex8olWxqTq8xCOWz WSS9YHOecMLfD1ZacM7t ToHzNPYuYMJmF8Si fGRsVMobY004TIcyKqL8 TOTduxYwC0MoMYVorCwf KmQ1z3S5Qw2IYH32WL08 BA79tGRmv8Y6lGL5 F3LmZUOvtzzhxnijnHC4 BPMyVCCsgR75Xl6ubTvi Wn9xYTViYXQ3SKEtoKTf S2KhpJ9aGfWdRFNx HIZrP5ExrKWkHMndV717 RLpyDrU3BRZwtbXqX0Sb WEPadHdtYiK0h6B6Bh7G Za37NB94RL71wPTf l2Q6mBK5L4XyRFLyhtyl dsemnSC2TBJwRCJxsD62 Gt8mjGpnKh8qUJRhJZI4 ZFFpaKWdI1GqpR9b VwDkAYHxKCJvL6HypSRj CVmeB815QHanChG2ZCWf efTdK7DlQPNegFifEcY8 e3I9Nj6OFKxbrtw1 H5ZjHruloQU+AR49AMRk ZN42mAOqiCGmx4pfhVo4 GgSzJGAhJPU8lWvgNZfw y0IqSKVfP24dmAQa c2U6 (more content not included)... Normal [facility] Consent for Treatmenton Consent for Treatment [id number]#1.00CD:127 Normal [facility] COVID-19 ([facility])on 08-01-2021 SARS-CoV-2 (COVID-19) RNA RIDGE+probe Ql (Resp) Not detected Normal Not Detected [facility] Comment on above: Result Comment: This test result should be correlated with clinical presentations and medical history by a healthcare provider to determine its clinical significance. This assay was performed by a reverse transcriptase real-time polymerase chain reaction (rt PCR) method on the [employer] system. This test has been authorized only [...] or revoked sooner. Performed By: #### 2 [id number] #### [facility] [address] [place] [address] SARS-CoV-2 (COVID-19) RNA RIDGE+probe Ql (Unsp spec) Pass Normal Pass [facility] Comment on above: Performed By: #### 2 [id number] #### [facility] [address] [place] [address] Specimen source Nom (Unsp spec) Nasal Normal [facility] Comment on above: Performed By: #### 2 [id number] #### [facility] [address] [place] [address] COVID-19 ([facility])on 07-30-2021 ADMITTED TO INTENSIVE CARE UNIT FOR CONDITION OF INTEREST:FIND:PT: Unknown Normal [facility] Comment on above: Performed By: #### 2 [id number] #### [facility] [address] [place] [address] EMPLOYED IN A HEALTHCARE SETTING:FIND:PT: Unknown Normal [facility] Comment on above: Performed By: #### 2 [id number] #### [facility] [address] [place] [address] FIRST TEST FOR CONDITION OF INTEREST:FIND:PT: Unknown Normal [facility] Comment on above: Performed By: #### 2 [id number] #### [facility] [address] [place] [address] HAS SYMPTOMS RELATED TO CONDITION OF INTEREST:FIND:PT: Unknown Normal [facility] Comment on above: Performed By: #### 2 [id number] #### [facility] [address] [place] [address] HOSPITALIZED FOR CONDITION OF INTEREST:FIND:PT: Unknown Normal [facility] Comment on above: Performed By: #### 2 [id number] #### [facility] [address] [place] [address] STATUS:FIND:PT: Unknown Normal [facility] Comment on above: Performed By: #### 2 [id number] #### [facility] [address] [place] [address] RESIDES IN A CONGREGATE CARE SETTING:FIND:PT: Unknown Normal [facility] Comment on above: Performed By: #### 2 [id number] #### [facility] [address] [place] [address] CTA CHEST W CONTRASTon 01-14 CTA CHEST [...] Kwabena Peña MD 01/13/21 Final result Normal [facility] CBC Auto DifferentialOrdered By: Tita Palma on 01-13-2021 Absolute Eos # 0.10 [facility] Work Phone: Absolute Immature Granulocyte NOT REPORTED [facility] Phone: Absolute Lymph # 0.80 [address] [facility] Work Phone: Absolute [place] # 0.50 [facility] Work Phone: Basophils (Bld) [#/Vol] 0.00 10*3/uL [facility] Work Phone: Basophils/100 WBC (Bld) 0 % 0 - 2 % [facility] Phone: Differential Type YES [facility] [employer] Work Phone: Eosinophils/100 WBC (Bld) 1 % 0 - 5 % [facility] Phone: Hematocrit (Bld) [Volume fraction] 42.0 % 36 - 46 % [facility] Work Phone: Hemoglobin.gastrointes tinal spec 1 Ql (Stl) 14.3 g/dL 12.0 - 16.0 g/dL [facility] Phone: Immature Granulocytes NOT REPORTED 0 % [facility] Work Phone: Interpretation and review of laboratory results Abnormal [facility] Phone: Lymphocytes/100 WBC (Bld) 11 % Low 15 - 40 % [employer] Work Phone: MCH (RBC) [Entitic mass] 29.5 pg 26 - 34 pg [employer] Phone: MCHC (RBC) [Mass/Vol] 34.1 g/dL 31 - 37 g/dL [facility] Work Phone: MCV (RBC) [Entitic vol] 86.5 fL 80 - 100 fL [employer] Work Phone: Monocytes/100 WBC (Bld) 7 % 4 - 8 % [employer] Work Phone: NRBC Automated NOT REPORTED per 100 WBC [employer] [facility] Work Phone: Platelet distribution width (Bld) [Ratio] 13.3 % 12.1 - 15.2 % [employer] Phone: Platelet Estimate NOT REPORTED [employer] Phone: Platelet mean volume (Bld) [Entitic vol] NOT REPORTED 6.0 - 12.0 fL [employer] Phone: Platelets (Bld) [#/Vol] 340 10*3/uL [employer] Phone: RBC (Bld) [#/Vol] 4.86 10*6/uL 4.0 - 5.2 m/uL [employer] Phone: RBC (Bld) [#/Vol] NOT REPORTED [facility] Phone: Segmented neutrophils/100 WBC (Bld) 81 % High 47 - 75 % [employer] Phone: Segs Absolute 6.30 [employer] Work Phone: WBC (Bld) [#/Vol] 7.8 10*3/uL [employer] Phone: WBC (Bld) [#/Vol] NOT REPORTED [employer] Phone: [employer] Phone: CBC with Diffon 01-13-2021 Abs. Basophil 0.00 k/uL Normal 0.0-0.2 [facility] Comment on above: Performed By: #### D DRE NARANJO, REJEC #### [facility] [facility] [address] [place] [address] Vice President Diversity: Flash Jaramillo MD Abs.Neutrophil (Seg) 6.30 k/uL Normal 2.5-7.0 [facility] Comment on above: Performed By: #### D DRE NARANJO, REJEC #### [facility] [address] [place] [address] Vice President Diversity: Flash Jaramillo MD Auto Diff Performed YES Normal [facility] Comment on above: Performed By: #### DRE SIU, REJEC #### [facility] [address] [place] [address] Vice President Diversity: Flash Jaramillo MD Basophils/100 WBC (Bld) 0 % Normal 0-2 [facility] Comment on above: Performed By: #### DRE SIU, REJEC #### [facility] [address] [place] [address] Vice President Diversity: Flash Jaramillo MD Eosinophils (Bld) [#/Vol] 0.10 10*3/uL Normal 0.0-0.4 [facility] Comment on above: Performed By: #### Maris NARANJO CDP, REJEC #### [facility] [address] [place] [address] Vice President Diversity: Flash Jaramillo MD Eosinophils/100 WBC (Bld) 1 % Normal 0-5 [facility] Comment on above: Performed By: #### Maris NARANJO CDP, REJEC #### [facility] [address] [place] [address] Vice President Diversity: Flash Jaramillo MD Erythrocyte distribution width (RBC) [Ratio] 13.3 % Normal 12.1-15.2 [facility] Comment on above: Performed By: #### D DRE NARANJO, REJEC #### [facility] [address] [place], [place] [id number] Vice President Diversity: Flash Jaramillo MD Hematocrit (Bld) [Volume fraction] 42.0 % Normal 36-46 [facility] Comment on above: Performed By: #### D DRE NARANJO, REJEC #### [facility] [address] [place] [address] Vice President Diversity: Flash Jaramillo MD Hemoglobin (Bld) [Mass/Vol] 14.3 g/dL Normal 12.0-16.0 [facility] Comment on above: Performed By: #### DRE SIU, REJEC #### [facility] [address] [place] [address] Vice President Diversity: Flash Jaramillo MD Lymphocytes (Bld) [#/Vol] 0.80 10*3/uL Low 1.0-4.8 [facility] Comment on above: Performed By: #### DRE SIU, REJEC #### [facility] [address] [place], [place] [id number] Vice President Diversity: Flash Jaramillo MD Lymphocytes/100 WBC (Bld) 11 % Low 15-40 [facility] Comment on above: Performed By: #### DRE SIU, REJEC #### [facility] [address] [place] [address] Vice President Diversity: Flash Jaramillo MD MCH (RBC) [Entitic mass] 29.5 pg Normal 26-34 [facility] Comment on above: Performed By: #### DRE SIU, REJEC #### [facility] [address] [place], [place] [id number] Vice President Diversity: Flash Jaramillo MD MCHC (RBC) [Mass/Vol] 34.1 g/dL Normal 31-37 [facility] Comment on above: Performed By: #### D DRE NARANJO, REJEC #### [facility] [address] [place] [address] Vice President Diversity: Flash Jaramillo MD MCV (RBC) [Entitic vol] 86.5 fL Normal 80-100 [facility] Comment on above: Performed By: #### D DRE NARANJO, REJEC #### [facility] [address] [place] [address] Vice President Diversity: Flash Jaramillo MD Monocytes (Bld) [#/Vol] 0.50 10*3/uL Normal 0.0-1.0 [facility] Comment on above: Performed By: #### DRE SIU, REJEC #### [facility] [address] [place] [address] Vice President Diversity: Flash Jaramillo MD Monocytes/100 WBC (Bld) 7 % Normal 4-8 [facility] Comment on above: Performed By: #### DRE SIU, REJEC #### [facility] [address] [place] [address] Vice President Diversity: Flash Jaramillo MD Neutrophil (Seg) 81 % High 47-75 [facility] Comment on above: Performed By: #### DRE SIU, REJEC #### [facility] [address] [place] [address] Vice President Diversity: Flash Jaramillo MD Platelets (Bld) [#/Vol] 340 10*3/uL Normal 140-450 [facility] Comment on above: Performed By: #### DRE SIU, REJEC #### [facility] [address] [place] [address] Vice President Diversity: Flash Jaramillo MD RBC (Bld) [#/Vol] 4.86 10*6/uL Normal 4.0-5.2 [facility] Comment on above: Performed By: #### D DRE NARANJO, REJEC #### [facility] [address] [place] [address] Vice President Diversity: Flash Jaramillo MD WBC (Bld) [#/Vol] 7.8 10*3/uL Normal 3.5-11.0 [facility] Comment on above: Performed By: #### D DRE NARANJO, REJEC #### [facility] [address] [place] [id number] Vice President Diversity: Flash Jaramillo MD Abs.Imm.Granulocyte NOT REPORTED Normal 0.00-0.30 [facility] Comment on above: Performed By: #### D DRE NARANJO, REJEC #### [facility] [address] [place] [address] Vice President Diversity: Flash Jaramillo MD Immature Granulocyte NOT REPORTED Normal 0 [facility] Comment on above: Performed By: #### D DRE NARANJO, REJEC #### [facility] [address] [place] [address] Vice President Diversity: Flash Jaramillo MD MPV NOT REPORTED Normal 6.0-12.0 [facility] Comment on above: Performed By: #### D DRE NARANJO, REJEC #### [facility] [address] [place] [phone] Vice President Diversity: Flash Jaramillo MD NRBC Automated NOT REPORTED Normal [facility] Comment on above: Performed By: #### D DRE NARANJO, REJEC #### [facility] [address] [place] [address] Vice President Diversity: Flash Jaramillo MD Platelet Estimate NOT REPORTED Normal [facility] Comment on above: Performed By: #### D DRE NARANJO, REJEC #### [facility] [address] [facility] [place] [address] Vice President Diversity: Flash Jaramillo MD RBC morphology finding Nom (Bld) NOT REPORTED Normal [facility] Comment on above: Performed By: #### D DRE NARANJO, REJEC #### [facility] [address] [place] [address] Vice President Diversity: Flash Jaramillo MD WBC Morphology NOT REPORTED Normal [facility] Comment on above: Performed By: #### D JOSE A, DRE, REJEC #### [facility] [address] [place] [address] Vice President Diversity: Flash Jaramillo MD CTA CHEST W CONTRASTOrdered By: Tita Palma on 01-13-2021 No evidence for acute large occlusive pulmonary embolism. No evidence for thoracic aortic aneurysm or dissection flap. No suspicious lung infiltrates or consolidation. Hepatic steatosis. Mild gastroesophageal wall thickening, correlate clinically. [employer] Phone: EXAMINATION: CTA CHEST W CONTRAST HISTORY: [...] distal esophagitis/wall lesion. No acute bony abnormality. [employer] Phone: Moreno, Mhpn Incoming Radiant Results From [email or web address] - 01/13/2021 10:06 PM EDT EXAMINATION: CTA [...] steatosis. Mild gastroesophageal wall thickening, correlate clinically. [facility] [employer] Work Phone: [facility] [employer] Work Phone: Comp Metabolic Profon 2020 (cont.) Normal [facility] Comment on above: Result Comment: Aver age GFR for 50-59 years old: 93 mL/min/1.73sq m Chronic Kidney Disease: <60 mL/min/1.73sq m Kidney failure: <15 mL/min/1.73sq m eGFR calculated using average adult body mass. Additional eGFR calculator available at: http://www.[employer]/multiple_crcl_2011.htm Performed By: #### C P, TROPI #### [facility] [address] [place] [address] Vice President Diversity: Flash Jaramillo MD Albumin [Mass/Vol] 4.3 g/dL Normal 3.5-5.2 [facility] Comment on above: Performed By: #### C P, TROPI #### [facility] [address] [place], [place] [phone] Vice President Diversity: Flash Jaramillo MD Alkaline Phos 165 U/L High 35-104 [facility] Comment on above: Performed By: #### C P, TROPI #### [facility] [address] [place], [place] [address] Vice President Diversity: Flash Jaramillo MD ALT [Catalytic activity/Vol] 24 U/L Normal 5-33 [facility] Comment on above: Performed By: #### C P, TROPI #### [facility] [address] [place], [place] [phone] Vice President Diversity: Flash Jaramillo MD Anion gap [Moles/Vol] 10 mmol/L Normal 9-17 [facility] Comment on above: Performed By: #### C P, TROPI #### [facility] [address] [place], [place] [id number] Vice President Diversity: Flash Jaramillo MD AST [Catalytic activity/Vol] 14 U/L Normal <32 [facility] Comment on above: Performed By: #### C P, TROPI #### [facility] [address] [place] [address] Vice President Diversity: Flash Jaramillo MD Bilirubin [Mass/Vol] 0.24 mg/dL Low 0.30-1.20 [facility] Comment on above: Performed By: #### C P, TROPI #### [facility] [address] [place], [place] [id number] Vice President Diversity: Flash Jaramillo MD BUN/CRE Ratio 16 Normal 9-20 [facility] Comment on above: Performed By: #### C P, TROPI #### [facility] [address] [place], [place] [id number] Vice President Diversity: Flash Jaramillo MD Calcium [Mass/Vol] 9.9 mg/dL Normal 8.6-10.4 [facility] Comment on above: Performed By: #### C P, TROPI #### [facility] [address] [place], [place] [id number] Vice President Diversity: Flash Jaramillo MD Chloride [Moles/Vol] 101 mmol/L Normal 98-107 [facility] Comment on above: Performed By: #### C P, TROPI #### [facility] [address] [place], [place] [address] Vice President Diversity: Flash Jaramillo MD CO2 [Moles/Vol] 24 mmol/L Normal 20-31 [facility] Comment on above: Performed By: #### C P, TROPI #### [facility] [address] [place], [place] [id number] Vice President Diversity: Flash Jaramillo MD Creatinine [Mass/Vol] 1.04 mg/dL High 0.50-0.90 [facility] Comment on above: Performed By: #### C P, TROPI #### [facility] [address] [place], [place] [id number] Vice President Diversity: Flash Jaramillo MD GFR, Amer >60 Normal >60 [facility] Comment on above: Performed By: #### C P, TROPI #### [facility] [address] [place], [place] [id number] Vice President Diversity: Flash Jaramillo MD GFR,non Amer 55 mL/min Low >60 [facility] Comment on above: Performed By: #### C P, TROPI #### [facility] [address] [place], [place] [id number] Vice President Diversity: Flash Jaramillo MD Glucose [Mass/Vol] 126 mg/dL High 70-99 [facility] Comment on above: Performed By: #### C P, TROPI #### [facility] [address] [place], [place] [id number] Vice President Diversity: Flash Jaramillo MD Potassium [Moles/Vol] 4.2 mmol/L Normal 3.7-5.3 [facility] Comment on above: Performed By: #### C P, TROPI #### [facility] [address] [place], [place] [id number] Vice President Diversity: Flash Jaramillo MD Protein [Mass/Vol] 7.9 g/dL Normal 6.4-8.3 [facility] Comment on above: Performed By: #### C P, TROPI #### [facility] [address] [place], [place] [id number] Vice President Diversity: Flash Jaramillo MD Sodium [Moles/Vol] 135 mmol/L Normal 135-144 [facility] Comment on above: Performed By: #### C P, TROPI #### [facility] [address] [place], [place] [phone] Vice President Diversity: Flash Jaramillo MD Urea nitrogen [Mass/Vol] 17 mg/dL Normal 6-20 [facility] Comment on above: Performed By: #### C P, TROPI #### [facility] [address] [place], [place] [id number] Vice President Diversity: Flash Jaramillo MD Albumin/Glob Ratio NOT REPORTED Normal 1.0-2.5 [facility] Comment on above: Performed By: #### C P, TROPI #### [facility] [address] [place], [place] [phone] Vice President Diversity: Flash Jaramillo MD Staging: NOT REPORTED Normal [facility] Comment on above: Performed By: #### C P, TROPI #### [facility] [address] [place], [place] [id number] Vice President Diversity: Flash Jaramillo MD Comprehensive Metabolic Pane lOrdered By: Tita Palma on 01-13-2021 Albumin [Mass/Vol] 4.3 g/dL 3.5 - 5.2 g/dL [employer] Phone: Albumin/Globulin Ratio NOT REPORTED [employer] Phone: ALP (Bld) [Catalytic activity/Vol] 165 U/L High 35 - 104 U/L [employer] Phone: ALT [Catalytic activity/Vol] 24 U/L 5 - 33 U/L [employer] Phone: Anion gap [Moles/Vol] 10 mmol/L 9 - 17 mmol/L [employer] Phone: AST [Catalytic activity/Vol] 14 U/L <32 [employer] Phone: Bilirubin [Mass/Vol] 0.24 mg/dL Low 0.30 - 1.20 mg/dL [employer] Phone: Calcium [Mass/Vol] 9.9 mg/dL 8.6 - 10. 4 mg/dL [employer] Phone: Chloride [Moles/Vol] 101 mmol/L 98 - 10 7 mmol/L [employer] Phone: CO2 [Moles/Vol] 24 mmol/L 20 - 31 mmol/L [employer] Phone: Creatinine [Mass/Vol] 1.04 mg/dL High 0.50 - 0.90 mg/dL [employer] Phone: Free PSA/Total PSA [Mass fraction] 7.9 g/dL 6.4 - 8.3 g/dL [employer] Phone: GFR >60 >60 mL/min [employer] Phone: GFR Non- 55 mL/min Low >60 [employer] Phone: GFR/1.73 sq M.predicted MDRD (S/P/Bld) [Vol rate/Area] [employer]ipl Phone: Comment on above: Average GFR for 50-5 9 years old: 93 mL/min/1.73sq m Chronic Kidney Disease: <60 mL/min/1.73sq m Kidney failure: <15 mL/min/1.73sq m eGFR calculated using average adult body mass. Additional eGFR calculator available at: http://www.[employer]/multiple_crcl_2012.htm GFR/1.73 sq M.predicted MDRD (S/P/Bld) [Vol rate/Area] NOT REPORTED [employer] Phone: Glucose [Mass/Vol] 126 mg/dL High 70 - 99 mg/dL [employer] Phone: Interpretation and review of laboratory results Abnormal [employer] Phone: Potassium [Moles/Vol] 4.2 mmol/L 3.7 - 5.3 mmol/L [employer] Phone: Sodium [Moles/Vol] 135 mmol/L 135 - 144 mmol/L [employer] Phone: Urea nitrogen (BldV) [Mass/Vol] 17 mg/dL 6 - 20 mg/dL [employer] Phone: Urea nitrogen/Creatinine (Bld) [Mass ratio] 16 Ripl Phone: Ripl Phone: D-Dimer Teston 01-13-2021 D-Dimer Test 0.88 mg/L FEU High 0.00-0.59 [facility] Comment on above: Result Comment: When [...] #### D JOSE A, CDP, REJEC #### [facility] [address] [place] [address] Vice President Diversity: Flash Jaramillo MD D-Dimer, QuantitativeOrdered By: Tita Palma on 01-13-2021 D-Dimer, Quant 0.88 High [employer] Phone: Comment on above: When combined with [...] Interpretation and review of laboratory results Abnormal [employer] Phone: Ripl Phone: SPECIMEN REJECTIONOrdered By : Tita Palma on 01-13-2021 - NOT REPORTED [facility]: Ordered Test CP TROP [facility] [employer] Phone: Reason for Rejection Unable to perform testing: Specimen hemolyzed. [employer] Phone: Specimen source Nom (Unsp spec) BLOOD IV START [facility] [employer] Phone: [facility]: Specimen Rejectionon 021 Reason for rejection Unable to perform testing: Specimen hemolyzed. [facility] Comment on above: Performed By: #### D DRE NARANJO, REJEC #### [facility] [address] [place] [address] Vice President Diversity: Flsah Jaramillo MD Source of sample BLOOD IV START [facility] Comment on above: Performed By: #### D DRE NARANJO, REJEC #### [facility] [address] [place], [place] [id number] Vice President Diversity: Flash Jaramillo MD Test ordered CP TROP [facility] Comment on above: Performed By: #### D DRE NARANJO, REJEC #### [facility] [address] [place] [address] Vice President Diversity: Flash Jaramillo MD ----- NOT REPORTED [facility] Comment on above: Performed By: #### D DRE NARANJO, REJEC #### [facility] [address] [place], [place] [id number] Vice President Diversity: Flash Jaramillo MD Troponinon 01-13-2021 Troponin, High Sens <6 Normal 0-14 [facility] Comment on above: Result Comment: High Sensitivity Troponin values cannot be compared with other Troponin methodologies. Patients with high levels of Biotin oral intake (i.e >5mg/day) may have falsely decreased Troponin levels. Samples collected within 8 hours of biotin intake may require additional information for diagnosis. Performed By: #### T ROPI #### [facility] [address] [place], [place] [id number] Vice President Diversity: Flash Jaramillo MD Troponin Interp. NOT REPORTED Normal [facility] Comment on above: Performed By: #### T ROPI #### [facility] [address] [place], [place] [id number] Vice President Diversity: Flash Jaramillo MD Troponin T NOT REPORTED Normal <0.03 [facility] Comment on above: Performed By: #### T ROPI #### [facility] [address] [place], [place] [id number] Vice President Diversity: Flash Jaramillo MD Troponin, High Sens <6 Normal 0-14 [facility] Comment on above: Result Comment: High Sensitivity Troponin values cannot be compared with other Troponin methodologies. Patients with high levels of Biotin oral intake (i.e >5mg/day) may have falsely decreased Troponin levels. Samples collected within 8 hours of biotin intake may require additional information for diagnosis. Performed By: #### C P, TROPI #### [facility] [address] [place] [address] Vice President Diversity: Flash Jaramillo MD Troponin Interp. NOT REPORTED Normal [facility] Comment on above: Performed By: #### C P, TROPI #### [facility] [address] [place] [address] Vice President Diversity: Flash Jaramillo MD Troponin T NOT REPORTED Normal <0.03 [facility] Comment on above: Performed By: #### C P, TROPI #### [facility] [address] [place] [address] Vice President Diversity: Flash Jaramillo MD TroponinOrdered By: Tita Palma on 01-13-2021 Troponin Interp NOT REPORTED [facility] Work Phone: Troponin T NOT REPORTED <0.03 ng/mL [facility] Work Phone: Troponin, High Sensitivity <6 0 - 14 ng/L [employer] Work Phone: Comment on above: High Sensitivity Troponin values cannot be compared with other Troponin methodologies. Patients with high levels of Biotin oral intake (i.e >5mg/day) may have falsely decreased Troponin levels. Samples collected within 8 hours of biotin intake may require additional information for diagnosis. [employer] Work Phone: Troponin Interp NOT REPORTED [facility] Work Phone: Troponin T NOT REPORTED <0.03 ng/mL [facility] Work Phone: Troponin, High Sensitivity <6 0 - 14 ng/L [employer] Phone: Comment on above: High Sensitivity Troponin values cannot be compared with other Troponin methodologies. Patients with high levels of Biotin oral intake (i.e >5mg/day) may have falsely decreased Troponin levels. Samples collected within 8 hours of biotin intake may require additional information for diagnosis. [employer] Phone: XR CHEST PORTABLEon 01-14-20 XR CHEST [...] Sarbjit Ramirez MD 01/13/21 Final result Normal [facility] XR CHEST PORTABLEOrdered By: Tita Palma on 01-13-2021 No focal consolidation, pneumothorax or pleural effusion. [employer] Phone: EXAM: XR CHEST PORTABLE HISTORY: Shortness of breath, chest pain. COMPARISON: None. TECHNIQUE: AP radiograph of the chest was performed. FINDINGS: No focal consolidation, pneumothorax or pleural effusion. There is mild elevation of the right hemidiaphragm. The cardiomediastinal silhouette is unremarkable. There are degenerative changes of the spine. [employer]ipl Phone: Moreno, Mhpn Incoming Radiant Results From [employer] - 01/13/2021 8:24 PM EDT EXAM: XR CHEST PORTABLE HISTORY: Shortness of breath, chest pain. COMPARISON: None. TECHNIQUE: AP radiograph of the chest was performed. FINDINGS: No focal consolidation, pneumothorax or pleural effusion. There is mild elevation of the right hemidiaphragm. The cardiomediastinal silhouette is unremarkable. There are degenerative changes of the spine. IMPRESSION: No focal consolidation, pneumothorax or pleural effusion. Ripl Phone: Ripl Phone: Vital Signs Date Time Vital Sign Value Performing Clinician Facility 06-16-2023 10:00-0500 Body height 157.48 cm Samra Yehmond Other [facility] Other 06-16-2023 10:00-0500 Body mass index (BMI) [Ratio] 35.52 kg/m2 Samra Yehmond Other [facility] Other 06-16-2023 10:00-0500 Body temperature 98 [degF] Samra Yehmond Other [facility] Other 06-16-2023 10:00-0500 Body weight 88.09 kg Samra Yehmond Other [facility] Other 06-16-2023 10:00-0500 Diastolic blood pressure 80 mm[Hg] Samra Yehmond Other [facility] Other 06-16-2023 10:00-0500 Respiratory rate 18 /min Samra Yehmond Other [facility] Other 06-16-2023 10:00-0500 SaO2% (BldA) [Mass fraction] 95 % Samra Wick Other [facility] Other 06-16-2023 10:00-0500 Systolic blood pressure 132 mm[Hg] Samra Wick Other [facility] Other 09-20-2022 11:45-0500 Body height 157.48 cm Siobhan Meyers Other [facility] Other 09-20-2022 11:45-0500 Body mass index (BMI) [Ratio] 34.93 kg/m2 Siobhan Gonzalezault Other [facility] Other 09-20-2022 11:45-0500 Body temperature 98.3 [degF] Siobhan Gonzalezault Other [facility] Other 09-20-2022 11:45-0500 Body weight 86.64 kg Siobhan Meyers Other [facility] Other 09-20-2022 11:45-0500 Respiratory rate 18 /min Siobhan Gonzalezault Other [facility] Other 09-20-2022 11:45-0500 SaO2% (BldA) [Mass fraction] 98 % Siobhan Gonzalezault Other [facility] Other 06-30-2022 18:35-0500 Body height 157.48 cm Cassandra Dumont Other [facility] Other 06-30-2022 18:35-0500 Body mass index (BMI) [Ratio] 34.56 kg/m2 Cassandra Dumont Other [facility] Other 06-30-2022 18:35-0500 Body temperature 97.7 [degF] Cassandra Dumont Other [facility] Other 06-30-2022 18:35-0500 Body weight 85.73 kg Cassandra Dumont Other [facility] Other 06-30-2022 18:35-0500 Diastolic blood pressure 72 mm[Hg] Cassandra Dumont Other [facility] Other 06-30-2022 18:35-0500 Respiratory rate 18 /min Cassandra Dumont Other [facility] Other 06-30-2022 18:35-0500 SaO2% (BldA) [Mass fraction] 98 % Cassandra Dumont Other [facility] Other 06-30-2022 18:35-0500 Systolic blood pressure 126 mm[Hg] Cassandra Dumont Other [facility] Other 12-18-2021 16:55-0400 Body height 157.48 cm Siobhan Luigi Other [facility] Other 12-18-2021 16:55-0400 Body mass index (BMI) [Ratio] 32.92 kg/m2 Siobhan Luigi Other [facility] Other 12-18-2021 16:55-0400 Body temperature 98.9 [degF] Siobhan Luigi Other [facility] Other 12-18-2021 16:55-0400 Body weight 81.65 kg Siobhan Meyers Other [facility] Other 12-18-2021 16:55-0400 Respiratory rate 16 /min Siobhan Meyers Other [facility] Other 12-18-2021 16:55-0400 SaO2% (BldA) [Mass fraction] 95 % Siobhan Meyers Other [facility] Other 01-13-2021 22:34-0400 Diastolic blood pressure 80 mm[Hg] Tita Palma MD Work Phone: [facility] Work Phone: 01-13-2021 22:34-0400 Heart rate 78 /min Tita Palma MD Work Phone: [facility] Work Phone: 01-13-2021 22:34-0400 Respiratory rate 17 /min Tita Palma MD Work Phone: [facility] Work Phone: 01-13-2021 22:34-0400 Systolic blood pressure 134 mm[Hg] Tita Palma MD Work Phone: [facility] Work Phone: 01-13-2021 19:33-0400 Body temperature 98.01 [degF] Tita Palma MD Work Phone: [employer] Work Phone: 01-13-2021 19:33-0400 Body weight 79.38 kg Tita Palma MD Work Phone: [facility] Work Phone: 01-13-2021 19:33-0400 SaO2% (BldA) [Mass fraction] 99 % Tita Palma MD Work Phone: [employer] Work Phone: Encounters Encounter Date Encounter Type Care Provider Facility Start: 12-21-2023 End: 12-23-2023 ambulatory UNKNOWN PROVIDER Facility:[facility] Start: 12-21-2023 End: 12-23-2023 Patient encounter procedure Elba Elkins DDS Work Phone: [facility] Start: 12-14-2023 End: 12-16-2023 Patient encounter procedure Maribel Connors DDS Work Phone: [facility] Start: 12-14-2023 End: 12-16-2023 ambulatory UNKNOWN PROVIDER Facility:[facility] Start: 11-18-2023 End: 11-18-2023 ambulatory CHRIS A FELTER Not Available Start: 10-22-2023 End: 10-22-2023 ambulatory UNKNOWN PROVIDER Facility:[facility] Start: 10-01-2023 End: 10-01-2023 ambulatory CHRIS FELTER Not Available Start: 09-15-2023 End: 09-16-2023 ambulatory UNKNOWN PROVIDER Facility:[facility] Start: 09-10-2023 End: 09-10-2023 ambulatory [facility] Start: 07-30-2023 End: 07-30-2023 ambulatory [facility] Start: 06-29-2023 End: 06-29-2023 ambulatory CHRIS A FELTER Not Available Start: 06-16-2023 End: 06-16-2023 ambulatory Samra Wick Other [facility] Other Start: 06-16-2023 Office outpatient vi sit 15 minutes Samra Wick [facility] Start: 05-23-2023 Letter encounter Marisol gross Start: 01-05-2023 End: 01-05-2023 ambulatory [facility] Start: 12-09-2022 End: 12-09-2022 ambulatory [facility] Start: 10-30-2022 End: 10-30-2022 ambulatory [facility] Start: 10-12-2022 End: 10-13-[address] ROMAIN CAN Facility:[facility] Start: 09-20-2022 End: 09-20-2022 ambulatory Siobhan Luigi Other [facility] Other Start: 09-20-2022 Office outpatient vi sit 15 minutes Siobhan Luigi [facility] Start: 06-30-2022 End: 06-30-2022 ambulatory Cassandra Dumont Other [facility] Other Start: 06-30-2022 Office outpatient vi sit 25 minutes Cassandra Dumont [facility] Start: 12-18-2021 End: 12-18-2021 ambulatory Siobhan Luigi Other [facility] Other Start: 12-18-2021 Office outpatient vi sit 25 minutes Siobhan Luigi [facility] Start: 07-30-2021 End: 10-29-2021 Patient encounter procedure MORALES ANGULO [facility] Start: 01-13-2021 End: 01-14-2021 Emergency department patient visit [facility] Start: 01-13-2021 End: 01-13-2021 Emergency department patient visit Tita Palma MD Work Phone: [facility] ED Comment on above: Chest pain, [...] DTaP/Tdap/Td vaccine (2 - Td or Tdap) [facility] [employer] Work Phone: Start: 07-16-2030 Tetanus vaccination Tetanus (Td or Tdap) Booster [facility] Start: 11-28-2028 Cholesterol [Mass/volume] in Serum or Plasma Cholesterol [facility] Start: 11-10-2026 Screening for malignant neoplasm of colon Cologuard (Stool DNA) [facility] Start: 06-06-2024 End: 06-06-2024 Patient encounter procedure 06/06/2024 10:40 AM EST Procedure Visit [address] [address] Pasquale Rosa DDS [address] [place] [address] [facility] Start: 02-25-2024 End: 02-25-2024 Patient encounter procedure 02/25/2024 11:00 AM EDT Procedure Visit [facility] [address] [place] [address] Pasquale Rosa DDS [address] [place] [address] [facility] Start: 02-18-2024 End: 02-18-2024 Patient encounter procedure 02/18/2024 10:00 AM EDT Procedure Visit [facility] [address] [place] [address] [address] Devlin Syd [address] [place] [address] [facility] Start: 12-21-2023 End: 12-21-2023 Patient encounter procedure 12/21/2023 11:00 AM EDT Procedure Visit [facility] [address] [place] [address] [address] [address] [place] [address] [facility] Start: 11-12-2023 Screening for malignant neoplasm of colon CRC Screening [facility] Start: 09-15-2023 End: 09-15-2023 Patient encounter procedure 09/15/2023 10:50 AM EST Procedure Visit [facility] [address] [place] [id number] Pasquale Rosa, [facility] [address] [place] [address] [facility] Start: 2023 Hepatitis B (HBV) Vaccine (optional start 60+ years) Hepatitis B (HBV) Vaccine (optional start 60+ years) [facility] Start: 2023 RSV vaccine (optional 60+ years) RSV vaccine (optional 60+ years) [facility] Start: 03-26-2023 COVID-19 Vaccine ( season) COVID-19 Vaccine ( season) [facility] Start: 03-26-2023 Influenza vaccination Influenza Vaccine (#1) [facility] Start: 03-26-2021 Influenza vaccination Flu vaccine (Season Ended) [facility] Phone: Start: 2013 Screening for malignant neoplasm of breast Breast cancer screen [facility] Phone: Start: 2013 Screening for malignant neoplasm of colon Colon cancer screen colonoscopy [facility] Phone: Start: 2013 Shingles (RZV) Vaccine (1 of 2) Shingles (RZV) Vaccine (1 of 2) [facility] Start: 2013 Shingles Vaccine (1 of 2) Shingles Vaccine (1 of 2) [facility]: Start: 2008 Cholesterol [Mass/volume] in Serum or Plasma Cholesterol [facility] Start: 2008 Screening for malignant neoplasm of [facility] Start: 2003 Lipid panel Lipid screen [facility] Phone: Start: 2003 Screening for malignant neoplasm [...] + acellular pertussis vaccine (product) Tdap Booster [facility] Start: 1978 HIV screening [facility] Start: 1975 COVID-19 Vaccine (1) COVID-19 Vaccine (1) [facility]: Start: 1965 COVID-19 Vaccine (#1) COVID-19 Vaccine (#1) [facility] Start: 1965 Hepatitis C screening Hepatitis C screen [facility] Phone: Start: 1965 Screening for malignant neoplasm of colon [facility] EKG 12 Lead EKG 12 Lead ECG Routine 01/13/2021 7:37 PM EDT [facility]: Immunizations Immunization Date Immunization Notes Care Provider Jose De Jesus borden 05-26-2021 influenza, injectabl e, quadrivalent, preservative free Maribel Waylon DDS Work Phone: [facility] 07-16-2020 tetanus toxoid, redu lima diphtheria toxoid, and acellular pertussis vaccine, adsorbed Maribel Waylon DDS Work Phone: [facility] Payers Date Payer Category Payer Unknown SP/UNINSURED [facility] FINANCIAL PROGRAM EVALUATION 2023-Present Other [id number] 2020 Medicaid [id number] 1965 Unknown [id number] 1963 Unknown [id number] 1963 Unknown [id number] 1963 Unknown [id number] 1963 Unknown [id number] 1963 Unknown [id number] 1963 Unknown [id number] 1963 Unknown [id number] 1965 Unknown [id number] 1959 Medicaid [id number] Social History Date Type Detail Facility Start: 01-13-2021 Tobacco smoking stat [facility] Never smoker [facility] Phone: Start: 01-13-2021 Tobacco use and exposure Never used [employer] Start: 01-13-2021 Alcohol intake Lifetime non-d melchor (finding) [facility] Phone: Start: 01-13-2021 History SDOH Alcohol Frequency 1 [employer] Work Phone: Start: 01-13-2021 Alcohol Comment occasional [facility] Work Phone: Start: 1965 Sex Assigned At Not on file M [employer] Phone: Exposure to SARS-CoV -2 (event) Not sure [employer] Sex Assigned At Female [facility] Tobacco smoking stat [facility] Tobacco smoking consumption unknown [facility] Clinical Notes 12-18-2021 to 12-21-2023 Elba Elkins, [facility] - 12/21/2023 11:02 AM EDTGMaribel grayson [facility] - 12/14/2023 11:08 AM EDT Note Date & Type Note Facility 12-21-2023 History of Present illness Narrative ----- Thursday, December 21, 2023 at 11:49:45 AM ----- ----- Provider: Nicky Elkins, -- Clinic: [place] ----- COMPOSITE JUDAISM Patient is scheduled for Mormon on tooth #9 surface F5. Reviewed Medical History. Pt exhibited the following conditions: No significant medical history Patient is ready for treatment. Topical Benzocaine gel applied at the injection site for 2 minutes. Administered 1 carpules of Lidocaine, 2% with Epinephrine 1:100,000,. isolation achieved. Decay/existing restorationism removed, cavity prepared. Selectively etched enamel with 37% phosphoric acid, rinsed, and blot dried. OptiBond hills applied and light-cured. Condensed packable composite shade A3 in light cured increments using Retraction cord with hemostatic gel Finished with finishing burs, checked occlusion, verified proximal contacts and restorationism was polished. Rinsed and suctioned intraorally, advised patient to not eat until local anesthesia wears off. POST OPERATIVE Periapical (single) RADIOGRAPH TAKEN. Next Visit: Restorative ----- Signed on Thursday, December 21, 2023 at 3:48:00 PM ----- ----- Provider: [id number] - Chelsea Sun DDS -- Clinic: [place] ----- documented in this encounter [facility] 12-14-2023 History of Present illness Narrative ----- Thursday, December 14, 2023 at 12:33:43 PM ----- ----- Provider: [id number] Resident Avi -- Clinic: [place] ----- COMPOSITE JUDAISM Patient is scheduled for Mormon on tooth #18 surface DO. Reviewed Medical History. Pt exhibited the following conditions: No significant medical history Patient is ready for treatment. Topical Benzocaine gel applied at the injection site for 2 minutes. Administered 1 carpules of Lidocaine, 2% with Epinephrine 1:100,000,. Cotton roll isolation achieved. Decay/existing restorationism removed, cavity prepared. Selectively etched enamel with 37% phosphoric acid, rinsed, and blot dried. Xeno IV hills applied and light-cured. Condensed packable composite shade A2 in light cured increments using Automatrix. Finished with finishing burs, checked occlusion, verified proximal contacts and restorationism was polished. Rinsed and suctioned intraorally, advised patient to not eat until local anesthesia wears off. POST OPERATIVE Periapical (single) RADIOGRAPH TAKEN. Next Visit: Bret ----- Signed on Thursday, December 14, 2023 at 2:29:42 PM ----- ----- Provider: [id number] - Pasquale Martin DDS -- Clinic: [place] ----- documented in this encounter [facility] 09-10-2023 Note Patient here for fol low up 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 Still gets intermittent skips . Denies chest pain, SOB, and lightheadedness/syncope. Review of Systems Cardiovascular: Positive for irregular heartbeat and palpitations. All other systems reviewed and are negative. [facility] 09-10-2023 Note Cardiovascular Medic ine [facility] SUBJECTIVE Sandro Severino is a 58 [...] Left lower l (more content not included)... [facility] 07-30-2023 Note Cardiovascular Medic [facility] SUBJECTIVE Sandro Severino is a [...] Behavior: Behavior anna (more content not included)... [facility] 07-30-2023 Note Review of Systems Cardiovascular: Positive for palpitations. Palpitaions every now and then pt feels well Pt also started januvia and cymbolta [facility] 06-16-2023 Evaluation note Encounter Date Diagnosis [...] no improvement in 2 to 3 days [facility] Other 06-13-2023 NotePatient here for 1 mo [...] headaches. All other systems reviewed and are negative.[facility] 01-05-2023 NoteCardiovascular Medicine [facility] SUBJECTIVE Chief Complaint Patient presents with [...] hgbA1c - 8.4 Testing/Pr (more content not included)...[facility] 12-25-[address]-17-2023 Note Cardiovascular Medicine [facility] SUBJECTIVE Chief Complaint Patient presents with [...] home. She c/o feeli (more content not included)...[facility] 12-09-2022 NotePatient is here today for a 1 month follow up. Review of Systems Constitutional: Positive for decreased appetite and weight loss. Musculoskeletal: Positive for arthritis and back pain. Neurological: Positive for dizziness, headaches and loss of balance. All other systems reviewed and are negative.[facility] 10-30-2022 NoteCardiology Clinic Note Chief Complaint: [...] a past medical history of Diabetes mellitus ([facility]). Surgical History She has a past [...] as needed Pacheco Burns MD Interventional Cardiology [facility]04-07-2023 NoteReview of Systems Cardiovascular: Positive for chest pain. Neurological: Positive for headaches. All other systems reviewed and are negative.[facility] 10-12-2022 NoteCARDIAC STRESS TEST Requesting Physician: [...] seen. EKG portion is negative for ischemia.[id number] Evaluation note* Encounter Date Diagnosis Assessment Notes [...] care provider if no improvement of symptoms [facility] Other 12-06-2022 Evaluation note* Encounter Date Diagnosis [...] other viral communicable diseases (ICD-10 - Z20.828) [facility] Other 05-26-2022 Evaluation note* Encounter Date Diagnosis Assessment Notes Treatment Notes Treatment Clinical Notes November, Cough (ICD-10 - R05.9) November, COVID-19 (ICD-10 - U07.1) Today you tested positive for the COVID virus. This mean you need to follow all CDC quarantine guidelines [email or web address] It is important to rest, increase [...] UP AND WHEN TO SEEK EMERGENCY TREATMENT [facility] Other Evaluation + Plan note No data available for this section [facility] Diagnosis Chest pain, unspecified type- Primary Anxiety state Anxiety state, unspecified documented in this encounter [facility] Phone: History general Narrative - Reported* Type Description Date Medical History Anxiety Medical History HTN (hypertension) Surgical History ablasion uterine [facility] Other History general Narrative - Reported* Type Description Date Medical History Anxiety Medical History HTN (hypertension) Surgical History ablasion uterine Hospitalization History Kidney Infection 1994 Hospitalization History chest pain 2022 [facility] Other Hospital Discharge instructions* Attachments The following attachments cannot be sent through Care Everywhere. * Chest Pain (Mauritian) * Anxiety Disorder (Mauritian) documented in this encounterRipl Phone: Hospital Discharge instructions No data available for this section [facility] Summary Purpose Family History No [...] DATE CREATED AUTHOR AUTHOR'S ORGANIZ ATION 02/11/2022 [facility] DATE CREATED AUTHOR AUTHOR'S ORGANIZ ATION 10/15/2022 [facility] DATE CREATED AUTHOR AUTHOR'S ORGANIZ ATION 09/12/2023 [facility] DATE CREATED AUTHOR AUTHOR'S ORGANIZ ATION 11/20/2023 [facility] DATE CREATED AUTHOR AUTHOR'S ORGANIZ ATION [facility]/27/2023 [facility] RECORDS PERTAINING TO PATIENTS WHO [...] BE BASED ON THE PRIMARY CLINICAL RECORDS. [employer] provides no warranty or guarantee of the accuracy or completeness of information in this document.
--- NOTE | 2024-02-25 09:11 | XR_ITS ---
The [address] [address] Patient Name: SANDRO STEELE MRN: [id number] date: 1965 Sex: F Assigned Patient Location: [facility] Current Patient Location: Accession/Order Number: [id number] Exam Date: 02/25/2024 09:15 Report Date: 02/26/2024 04:36 At the request of: MIRELLA FIELDS Procedure: XR shoulder LT min 2V PROCEDURE: XR shoulder LT min 2V HISTORY: Left Acute Shoulder Pain ; no known injury COMPARISON: None. FINDINGS: BONES:Narrowing of the acromioclavicular joints with prominent undersurface osteophyte. Unremarkable humeral head and glenohumeral joint. SOFT TISSUES:No visible soft tissue swelling. EFFUSION:None visible. OTHER: Negative. XR/XR shoulder LT min 2V IMPRESSION: 1. Degenerative changes of the acromioclavicular joint which would predispose to rotator cuff injury. Electronically authenticated by: MATTHEW GUERRERO Date: 02/26/2024 04:36
== END 2024-02-25 09:07 | disposition home or self-care (01) ==
PROVIDERS: PCP Nurse Practitioner; Visit Provider Nurse Practitioner
DX: M25.512 Pain in left shoulder (principal)
CPT/HCPCS: 73030

== ENCOUNTER 2024-03-03 10:33 | Outpatient (OUT) | payer OTHER, SELFPAY ==
--- OUTSIDE RECORDS SUMMARY | 2024-03-03 10:59 | XMS_ITS | CCD ---
Author Organization [facility] Care Team Providers Care Sales Associate Name Role Phone Unavailable Primary Care Provider UnavailTITA Keenan Attending Unavailable MORALES ANGULO Primary Care Physician Siobhan Meyers Unavailable Cassandra Dumont Unavailable DR ROMAIN CAN Consulting Unavailabl e ROSE MARIE ., FELIEBRTO Attending Unavailable REQUEST, DR NONE LISTED Primary [...] / neomycin 3.5 mg/ml / polymyxin b 42663 unt/ml otic solution (1 source) Aminoglycoside Antibacterial, Polymyxin-class Antibacterial, Corticosteroid Start: 09-20-19 Dwhowfvz-Vxitqznsb-TU 3.5-40673-8 4 drops into affected ear Otic Three [...] Nausea Episodic Other aftercare (1 source) Other group home (current) drug therapy; Translations: [OTH ASSISTED CURRENT DRUG THERAPY] Onset: 10-15-2022 Episodic Other [...] Interpretation Reference Range Facility Progress Noteson 12-21-2023 Ice Cream Mixer Authentication Interface Message Text ----- Thursday, December 21, 2023 at 11:49:45 AM ----- ----- Provider: Resident Arianne -- Clinic: [place] ----- COMPOSITE ZOROASTRIAN Patient is scheduled for Rastafari on tooth #9 surface F5. Reviewed Medical History. Pt exhibited the following conditions: No significant medical history Patient is ready for treatment. Topical Benzocaine gel applied at the injection site for 2 minutes. Administered 1 carpules of Lidocaine, 2% with Epinephrine 1:100,000,. isolation achieved. Decay/existing uatsdin removed, cavity prepared. Selectively etched enamel with 37% phosphoric acid, rinsed, and blot dried. OptiBond hills applied and light-cured. Condensed packable composite shade A3 in light cured increments using Retraction cord with hemostatic gel Finished with finishing burs, checked occlusion, verified proximal contacts and uatsdin was polished. Rinsed and suctioned intraorally, advised patient to not eat until local anesthesia wears off. POST OPERATIVE Periapical (single) RADIOGRAPH TAKEN. Next Visit: Restorative ----- Signed on Thursday, December 21, 2023 at 3:48:00 PM ----- ----- Provider: [id number] - Chelsea Sun DDS -- Clinic: [place] ----- Normal [facility] [employer] [facility] Progress Noteson 12-14-2023 Ice Cream Mixer Authentication Interface Message Text ----- Thursday, December 14, 2023 at 12:33:43 PM ----- ----- Provider: [id number] - Resident Anahi -- Clinic: [place] ----- COMPOSITE ZOROASTRIAN Patient is scheduled for Rastafari on tooth #18 surface DO. Reviewed Medical History. Pt exhibited the following conditions: No significant medical history Patient is ready for treatment. Topical Benzocaine gel applied at the injection site for 2 minutes. Administered 1 carpules of Lidocaine, 2% with Epinephrine 1:100,000,. Cotton roll isolation achieved. Decay/existing uatsdin removed, cavity prepared. Selectively etched enamel with 37% phosphoric acid, rinsed, and blot dried. Xeno IV hills applied and light-cured. Condensed packable composite shade A2 in light cured increments using Automatrix. Finished with finishing burs, checked occlusion, verified proximal contacts and uatsdin was polished. Rinsed and suctioned intraorally, advised patient to not eat until local anesthesia wears off. POST OPERATIVE Periapical (single) RADIOGRAPH TAKEN. Next Visit: Bret ----- Signed on Thursday, December 14, 2023 at 2:29:42 PM ----- ----- Provider: [id number] - Pasquale Martin DDS -- Clinic: [place] ----- Normal [facility] [employer] [facility] Progress Noteson 10-22-2023 Ice Cream Mixer Authentication Interface Message Text ----- Sunday, October 22, 2023 at 12:00:23 PM ----- ----- Provider: [id number] - Amina Mac Hygienist -- Clinic: [place] ----- [facility], Pt is ready for tx. Pt is [...] RECALL/ 6months. Amina Gann RDH Normal [facility] [employer] [facility] Progress Noteson 09-15-2023 Ice Cream Mixer Authentication Interface Message Text ----- Friday, September 15, 2023 at 11:18:51 AM ----- ----- Provider: [id number] - Delbert Bejarano Resident -- Clinic: [place] ----- INITIAL/COMPREHENSIV E EXAM [...] 2023 at 11:23:03 AM ----- ----- Provider: [id number] Geovanny Martin DDS -- Clinic: [place] ----- Normal [facility] [employer] [facility] Office Visiton 09-10-2023 Follow-up visit [id number] Sandro Severino D 1965 F Date Provider Department Center 09/10/2023 PACHECO GUILLORY Family History Problem Relation Age of Onset No Known Problems Mother No Known Problems Father No Known Problems Sister No Known Problems Brother Family Status - Relation Status Age at Mother Father Sister Brother Level of Service:24705 SC OFFICE/OUTPATIENT ESTABLISHED LOW MDM 20 MIN Normal [facility] Office Visiton 07-30-2023 Follow-up visit [id number] Sandro Severino 1965 F Date Provider Department Center 07/30/2023 PACHECO GUILLORY Hos No family history on file Level of Service:73388 SC OFFICE/OUTPATIENT ESTABLISHED LOW MDM 20 MIN Normal [facility] COVID/FLU RT-PCRon SARS-CoV-2 (COVID-19) RNA RIDGE+probe Ql (Unsp spec) Negative [facility] Other COVID/FLU RT-PCR Negative [facility] Other Office Visiton 01-05-2023 Follow-up visit [id number] Sandro Severino 1965 F Date Provider Department Center 01/05/2023 TERESSA SOLOMON Hos No family history on file Level of Service:77826 SC OFFICE/OUTPATIENT ESTABLISHED LOW MDM 20-29 MIN Reason for Visit and Comments: Hypertension [406622] Normal [facility] 36on 12-24-2022 36 Her BP is more often running above goal. Would like to see her average BP running <130/90. We can either have her resume her losartan/hydrochloro thiazide or we can increase her carvedilol to 12.5mg BID. Normal [facility] Office Visiton 12-09-2022 Follow-up visit [id number] Sandro Severino 1965 F Date Provider Department Center 12/09/2022 TERESSA SOLOMON Hos No family history on file Level of Service:39938 SC OFFICE/OUTPATIENT ESTABLISHED MOD MDM 30-39 MIN Reason for Visit and Comments: Follow-up [522810] - 1 mo. Follow up Normal [facility] Office Visiton 10-30-2022 Follow-up visit [id number] Sandro Severino 1965 F Date Provider Department Center 10/30/2022 3848-PACHECO BURNS CARD [place] [facility] No family history on file Level of Service:08346 SC OFFICE/OUTPATIENT ESTABLISHED MOD MDM 30-39 MIN Reason for Visit and Comments: Chest Pain [848004] - f/u tbh hypertension chest pain pt states last night she was having some chest pain and headache last night Normal [facility] CBC AUTO DIFFon 10-13-2022 BASO # 0.1 103/ul Normal 0.0-0.1 [facility] [place] [facility] Comment on above: Performed By: #### P OCGLUC #### [facility] [address] [address] [address] Gibson Jin Basophils/100 WBC (Bld) 1.0 % Normal 0.2-2.0 [facility] [place] [facility] Comment on above: Performed By: #### P OCGLUC #### [facility] [address] [address] [address] Gibson Jin EO # 0.2 103/ul Normal 0.0-0.7 [facility] [place] [facility] Comment on above: Performed By: #### P OCGLUC #### [facility] [address] [address] [address] Gibson Jin Eosinophils/100 WBC (Bld) 3.9 % Normal 0.9-7.0 [facility] [place] [facility] Comment on above: Performed By: #### P OCGLUC #### [facility] [address] [address] [address] Gibson Jin Erythrocyte distribution width (RBC) [Ratio] 12.4 % Normal 11.0-15.0 [facility] [place] [facility] Comment on above: Performed By: #### P OCGLUC #### [facility] [address] [place] [address] Dr. Gibson Jin Hematocrit (Bld) [Volume fraction] 43.4 % Normal 36.0-48.0 [facility] [place] [facility] Comment on above: Performed By: #### P OCGLUC #### [facility] [address] [address] [address] Gibson Jin Hemoglobin (Bld) [Mass/Vol] 14.7 g/dL Normal 12.0-16.0 [facility] [place] [facility] Comment on above: Performed By: #### P OCGLUC #### [facility] [address] [address] [address] Gibson Jin IG # 0.09 10e3/ul Critically high 0.00-0.03 [facility] Comment on above: Performed By: #### P OCGLUC #### [facility] [address] [address] [address] Gibson Jin IG % 1.5 % Critically high 0.0-0.5 [facility] Comment on above: Performed By: #### P OCGLUC #### [facility] [address] [address] [address] Gibson Jin LYMPH # 1.2 103/ul Normal 1.2-3.8 [facility] [place] [facility] Comment on above: Performed By: #### P OCGLUC #### [facility] [address] [address] [address] Gibson Jin Lymphocytes/100 WBC (Bld) 19.4 % Critically low 20.5-60.0 [facility] [place] [facility] Comment on above: Performed By: #### P OCGLUC #### [facility] [address] [address] [address] Gibson Jin MANUAL DIFF REQ NO Normal [facility] Comment on above: Performed By: #### P OCGLUC #### [facility] [address] [address] [address] Gibson Jin MCH (RBC) [Entitic mass] 30.2 pg Normal 26.7-34.0 [facility] [place] [facility] Comment on above: Performed By: #### P OCGLUC #### [facility] [address] [place] [address] Dr. Gibson Jin MCHC (RBC) [Mass/Vol] 33.9 g/dL Normal 29.9-35.2 [facility] [place] [facility] Comment on above: Performed By: #### P OCGLUC #### [facility] [address] [address] [address] Gibson Jin MCV (RBC) [Entitic vol] 89.1 fL Normal 81.0-99.0 [facility] [place] [facility] Comment on above: Performed By: #### P OCGLUC #### [facility] [address] [address] [address] Gibson Jin MONO # 0.4 103/ul Normal 0.3-0.8 [facility] [place] [facility] Comment on above: Performed By: #### P OCGLUC #### [facility] [address] [place] [address] Dr. Gibson Jin Monocytes/100 WBC (Bld) 6.9 % Normal 1.7-12.0 [facility] [place] [facility] Comment on above: Performed By: #### P OCGLUC #### [facility] [address] [place] [address] Dr. Gibson Jin NEUT # 4.1 103/ul Normal 1.4-6.5 [facility] [place] [facility] Comment on above: Performed By: #### P OCGLUC #### [facility] [address] [place] [address] Dr. Gibson Jin Neutrophils/100 WBC (Bld) 67.3 % Normal 43.0-75.0 [facility] [place] [facility] Comment on above: Performed By: #### P OCGLUC #### [facility] [address] [place] [address] Dr. Gibson Jin Platelet mean volume (Bld) [Entitic vol] 10.3 fL Normal 9.5-13.5 [facility] [place] [facility] Comment on above: Performed By: #### P OCGLUC #### [facility] [address] [place] [address] Dr. Gibson Jin PLT 273 103/ul Normal 150-450 [facility] [place] [facility] Comment on above: Performed By: #### P OCGLUC #### [facility] [address] [place] [address] Dr. Gibson Jin RBC 4.87 106/ul Normal 4.20-5.40 [facility] [place] [facility] Comment on above: Performed By: #### P OCGLUC #### [facility] [address] [place], [place] [address] Dr. Gibson Jin WBC 6.1 103/ul Normal 4.0-11.0 [facility] [place] [facility] Comment on above: Performed By: #### P OCGLUC #### [facility] [address] [place], [place] [address] Dr. Gibson Jin ECHOCARDIO M/2D COMPLETEon 0 10-13-2022 ECHOCARDIO M/2D COMPLETE Patient: SANDRO SEVERINO Exam Date: 10/13/2022 : 1965 Gender:F Ordering : FELIBERTO TROTTER . Admission #: [id number] Family : Order #: [id number] CLICK HERE TO VIEW EXAM ECHOCARDIOGRAM REPORT [...] Mosquera M.D. on 10/13/2022 at 15:43 Normal [facility] [place] [facility] GLYCOHEMOGLOBIN A1Con 2022 ADA RECOMMENDATION SEE BELOW Normal [facility] Comment on above: Result Comment: ADA RECOMMENDED LIMIT 4.0 - 6.0 ADA THERAPEUTIC TARGET < 7.0 ACTION SUGGESTED > 7.0 Performed By: #### A 1C #### [facility] [address] [place] [address] Dr. Gibson Jin Glucose [Mass/Vol] 197 mg/dL Normal [facility] Comment on above: Performed By: #### A 1C #### [facility] [address] [address] [address] Gibson Jin HbA1c (Bld) [Mass fraction] 8.5 % Critically high 4.5-6.2 [facility] [place] [facility] Comment on above: Performed By: #### A 1C #### [facility] [address] [address] [address] Gibson Jin LIPID PROFILEon 10-13-2022 CHOL-HDL RATIO NORM SEE BELOW Normal [facility] Comment on above: Result Comment: 3.3 - 4.4 LOW RISK 4.4 - 7.1 AVERAGE RISK 7.1 - 11.0 MODERATE RISK >11.0 HIGH RISK Performed By: #### T SH, CMP, LIPID #### [facility] [address] [address] [address] Gibson Jin Cholesterol [Mass/Vol] 167 mg/dL Normal <=200 [facility] Comment on above: Performed By: #### T SH, CMP, LIPID #### [facility] [address] [address] [address] Gibson Jin Cholesterol in HDL [Mass/Vol] 45 mg/dL Normal 40-60 [facility] [place] [facility] Comment on above: Performed By: #### T SH, CMP, LIPID #### [facility] [address] [place] [address] Dr. Gibson Jin Cholesterol in LDL [Mass/Vol] 93.4 mg/dL Normal [facility] [place] [facility] Comment on above: Performed By: #### T SH, CMP, LIPID #### [facility] [address] [address] [address] Gibson Jin Cholesterol.total/Chol esterol in HDL [Mass ratio] 3.7 {ratio} Normal [facility] [place] [facility] Comment on above: Performed By: #### T SH, CMP, LIPID #### [facility] [address] [place] [address] Dr. Gibson Jin HDL NORMAL > or = 60 mg/dl - LOW CARDIOVASCULAR RISK <40 mg/dl - HIGH CARDIOVASCULAR RISK Normal [facility] [place] [facility] Comment on above: Performed By: #### T SH, CMP, LIPID #### [facility] [address] [address] [address] Gibson Jin LDL CALC NORMAL SEE BELOW Normal [facility] Comment on above: Result Comment: <100 mg/dl OPTIMAL 100 - 129 mg/dl NEAR OR ABOVE OPTIMAL 130 - 159 mg/dl BORDERLINE HIGH 160 - 189 mg/dl HIGH >190 mg/dl VERY HIGH Performed By: #### T SH, CMP, LIPID #### [facility] [address] [place], [place] [address] Dr. Gibson Jin Triglyceride [Mass/Vol] 143 mg/dL Normal <=150 [facility] [place] [facility] Comment on above: Performed By: #### T SH, CMP, LIPID #### [facility] [address] [place], [place] [address] Dr. Gibson Jin VLDL CALC 28.6 mg/dL Normal [facility] [place] [facility] Comment on above: Performed By: #### T SH, CMP, LIPID #### [facility] [address] [place], [place] [address] Dr. Gibson Jin NM STRESS/REST MULTIon 10-13 NM STRESS/REST MULTI Patient: SANDRO SEVERINO Exam Date: 10/13/2022 : 1965 Gender:F Ordering : TERESSA OLIVEROS [facility] Admission #: [id number] Family : FELIBERTO TROTTER . Order #: [id number] CLICK HERE TO VIEW EXAM RADIOLOGY REPORT [...] Winn M.D. on 10/13/2022 at 15:00 Normal [facility] [place] [facility] POINT OF CARE GLUCOSEon 09-24 Glucose [Mass/Vol] 372 mg/dL Critically high 74-106 [facility] Comment on above: Performed By: #### P OCGLUC #### [facility] [address] [place] [address] Dr. Gibson Jin Glucose [Mass/Vol] 131 mg/dL Critically high 74-106 [facility] Comment on above: Performed By: #### P OCGLUC #### [facility] [address] [place] [address] Dr. Gibson Jin PROF 14(COMP METB)on 023 Albumin [Mass/Vol] 3.3 g/dL Critically low 3.4-5.0 [facility] Comment on above: Performed By: #### T SH, CMP, LIPID #### [facility] [address] [place] [address] Dr. Gibson Jin Albumin/Globulin [Mass ratio] 0.9 {ratio} Normal [facility] [place] [facility] Comment on above: Performed By: #### T SH, CMP, LIPID #### [facility] [address] [address] [address] Gibson Jin ALP [Catalytic activity/Vol] 123 U/L Critically high 46-116 [facility] [place] [facility] Comment on above: Performed By: #### T SH, CMP, LIPID #### [facility] [address] [place] [address] Dr. Gibson Jin ALT [Catalytic activity/Vol] 223 U/L Critically high 14-59 [facility] [place] [facility] Comment on above: Performed By: #### T SH, CMP, LIPID #### [facility] [address] [address] [address] Gibson Jin Anion gap [Moles/Vol] 10.0 mmol/L Normal [facility] Comment on above: Performed By: #### T SH, CMP, LIPID #### [facility] [address] [address] [address] Gibson Jin AST [Catalytic activity/Vol] 113 U/L Critically high 15-37 [facility] [place] [facility] Comment on above: Performed By: #### T SH, CMP, LIPID #### [facility] [address] [address] [address] Gibson Jin Bilirubin [Mass/Vol] 0.7 mg/dL Normal 0.2-1.0 [facility] [place] [facility] Comment on above: Performed By: #### T SH, CMP, LIPID #### [facility] [address] [address] [address] Gibson Jin Calcium [Mass/Vol] 9.1 mg/dL Normal 8.5-10.1 [facility] Comment on above: Performed By: #### T SH, CMP, LIPID #### [facility] [address] [address] [address] Gibson Jin Chloride [Moles/Vol] 102 mmol/L Normal 98-107 [facility] [place] [facility] Comment on above: Performed By: #### T SH, CMP, LIPID #### [facility] [address] [address] [address] Gibson Jin CO2 [Moles/Vol] 30.0 mmol/L Normal 21.0-32.0 [facility] Comment on above: Performed By: #### T SH, CMP, LIPID #### [facility] [address] [address] [address] Gibson Jin Creatinine [Mass/Vol] 0.73 mg/dL Normal 0.55-1.02 [facility] [place] [facility] Comment on above: Performed By: #### T SH, CMP, LIPID #### [facility] [address] [address] [address] Gibson Jin EGFR-AF AUSTRALIAN >60 Normal >=60 [facility] Comment on above: Performed By: #### T SH, CMP, LIPID #### [facility] [address] [address] [address] Gibson Jin EGFR-NON AF AUSTRALIAN >60 Normal >=60 [facility] Comment on above: Performed By: #### T SH, CMP, LIPID #### [facility] [address] [address] [address] Gibson Jin Globulin (S) [Mass/Vol] 3.5 g/dL Normal [facility] [place] [facility] Comment on above: Performed By: #### T SH, CMP, LIPID #### [facility] [address] [place] [address] Dr. Gibson Jin Glucose [Mass/Vol] 165 mg/dL Critically high 74-106 [facility] Comment on above: Performed By: #### T SH, CMP, LIPID #### [facility] [address] [place] [address] Dr. Gibson Jin Potassium [Moles/Vol] 4.0 mmol/L Normal 3.5-5.1 [facility] [place] [facility] Comment on above: Performed By: #### T SH, CMP, LIPID #### [facility] [address] [place] [address] Dr. Gibson Jin Protein [Mass/Vol] 6.8 g/dL Normal 6.4-8.2 [facility] Comment on above: Performed By: #### T SH, CMP, LIPID #### [facility] [address] [place] [address] Dr. Gibson Jin Sodium [Moles/Vol] 138 mmol/L Normal 136-145 [facility] Comment on above: Performed By: #### T SH, CMP, LIPID #### [facility] [address] [place] [address] Dr. Gibson Jin Urea nitrogen [Mass/Vol] 14.0 mg/dL Normal 7.0-18.0 [facility] [place] [facility] Comment on above: Performed By: #### T SH, CMP, LIPID #### [facility] [address] [place] [address] Dr. Gibson Jin Urea nitrogen/Creatinine [Mass ratio] 19.2 mg/mg Normal [facility] [place] [facility] Comment on above: Performed By: #### T JENNIFER, CMP, LIPID #### [facility] [address] [address] [address] Gibson Jin TSHon 10-13-2022 TSH 3.011 uIU/mL Normal 0.358-3.740 [facility] Comment on above: Performed By: #### T SH, CMP, LIPID #### [facility] [address] [address] [address] Gibson Jin US SINGLE QUAD RT [...] DELL WINN Date: 2022-10-13 13:22 Normal [facility] CBC AUTO DIFFon 10-12-2022 BASO # 0.1 103/ul Normal 0.0-0.1 [facility] [place] [facility] Comment on above: Performed By: #### C BC #### [facility] [address] [address] [address] Gibson Jin Basophils/100 WBC (Bld) 1.0 % Normal 0.2-2.0 [facility] [place] [facility] Comment on above: Performed By: #### C BC #### [facility] [address] [address] [address] Gibson Jin EO # 0.2 103/ul Normal 0.0-0.7 [facility] [place] [facility] Comment on above: Performed By: #### C BC #### [facility] [address] [place] [address] Dr. Gibson Jin Eosinophils/100 WBC (Bld) 2.2 % Normal 0.9-7.0 [facility] [place] [facility] Comment on above: Performed By: #### C BC #### [facility] [address] [place] [address] Dr. Gibson Jin Erythrocyte distribution width (RBC) [Ratio] 12.1 % Normal 11.0-15.0 [facility] [place] [facility] Comment on above: Performed By: #### C BC #### [facility] [address] [place] [address] Dr. Gibson Jin Hematocrit (Bld) [Volume fraction] 43.1 % Normal 36.0-48.0 [facility] [place] [facility] Comment on above: Performed By: #### C BC #### [facility] [address] [place] [address] Dr. Gibson Jin Hemoglobin (Bld) [Mass/Vol] 15.1 g/dL Normal 12.0-16.0 [facility] [place] [facility] Comment on above: Performed By: #### C BC #### [facility] [address] [place] [address] Dr. Gibson Jin IG # 0.06 10e3/ul Critically high 0.00-0.03 [facility] Comment on above: Performed By: #### C BC #### [facility] [address] [place] [address] Dr. Gibson Jin IG % 0.8 % Critically high 0.0-0.5 [facility] Comment on above: Performed By: #### C BC #### [facility] [address] [place] [address] Dr. Gibson Jin LYMPH # 1.5 103/ul Normal 1.2-3.8 [facility] [place] [facility] Comment on above: Performed By: #### C BC #### [facility] [address] [place] [address] Dr. Gibson Jin Lymphocytes/100 WBC (Bld) 20.1 % Critically low 20.5-60.0 [facility] [place] [facility] Comment on above: Performed By: #### C BC #### [facility] [address] [place] [address] Dr. Gibson Jin MANUAL DIFF REQ NO Normal [facility] Comment on above: Performed By: #### C BC #### [facility] [address] [place] [address] Dr. Gibson Jin MCH (RBC) [Entitic mass] 30.6 pg Normal 26.7-34.0 [facility] [place] [facility] Comment on above: Performed By: #### C BC #### [facility] [address] [place] [address] Dr. Gibson Jin MCHC (RBC) [Mass/Vol] 35.0 g/dL Normal 29.9-35.2 [facility] [place] [facility] Comment on above: Performed By: #### C BC #### [facility] [address] [place] [address] Dr. Gibson Jin MCV (RBC) [Entitic vol] 87.2 fL Normal 81.0-99.0 [facility] [place] [facility] Comment on above: Performed By: #### C BC #### [facility] [address] [place] [address] Dr. Gibson Jin MONO # 0.5 103/ul Normal 0.3-0.8 [facility] [place] [facility] Comment on above: Performed By: #### C BC #### [facility] [address] [place] [address] Dr. Gibson Jin Monocytes/100 WBC (Bld) 6.5 % Normal 1.7-12.0 [facility] [place] [facility] Comment on above: Performed By: #### C BC #### [facility] [address] [place] [address] Dr. Gibson Jin NEUT # 5.0 103/ul Normal 1.4-6.5 [facility] Comment on above: Performed By: #### C BC #### [facility] [address] [place] [address] Dr. Gibson Jin Neutrophils/100 WBC (Bld) 69.4 % Normal 43.0-75.0 [facility] [place] [facility] Comment on above: Performed By: #### C BC #### [facility] [address] [address] [address] Gibson Jin Platelet mean volume (Bld) [Entitic vol] 10.6 fL Normal 9.5-13.5 [facility] [place] [facility] Comment on above: Performed By: #### C BC #### [facility] [address] [address] [address] Gibson Jin PLT 281 103/ul Normal 150-450 [facility] Comment on above: Performed By: #### C BC #### [facility] [address] [address] [address] Gibson Jin RBC 4.94 106/ul Normal 4.20-5.40 [facility] Comment on above: Performed By: #### C BC #### [facility] [address] [place] [address] Dr. Gibson Jin WBC 7.3 103/ul Normal 4.0-11.0 [facility] [place] [facility] Comment on above: Performed By: #### C BC #### [facility] [address] [address] [address] Gibson Jin Covid-19 PCR ([facility])on 09-24 SARS-CoV-2 (COVID-19) RNA RIDGE+probe Ql (Unsp spec) Not detected Normal NOT DETECTED [facility] Comment on above: Result Comment: When [...] for this test is supported by the Track Vehicle Repairer of Health and Human Service's declaration that [...] used). Performed By: #### P OCGLUC #### [facility] [address] [place] [address] Dr. Gibson Jin D-DIMERon 10-12-2022 D-DIMER 0.34 mg/L FEU Normal <=0.59 [facility] Comment on above: Performed By: #### P OCGLUC #### [facility] [address] [address] [address] Gibson Jin D-DIMER COMMENTS SEE BELOW Normal [facility] Comment on above: Result Comment: Incr [...] hospitalization. Performed By: #### P OCGLUC #### [facility] [address] [place] [address] Dr. Gibson Jin DRUG SCREEN RAPID (URINE)on 10-12-2022 AMP Negative Normal NEGATIVE [facility] [place] [facility] Comment on above: Performed By: #### P OCGLUC #### [facility] [address] [place] [address] Dr. Gibson Jin BAR Negative Normal NEGATIVE [facility] Comment on above: Performed By: #### P OCGLUC #### [facility] [address] [place] [address] Dr. Gibson Jin BUP Negative Normal NEGATIVE [facility] Comment on above: Performed By: #### P OCGLUC #### [facility] [address] [place] [address] Dr. Gibson Jin BZO Negative Normal NEGATIVE [facility] [place] [facility] Comment on above: Performed By: #### P OCGLUC #### [facility] [address] [place] [address] Dr. Gibson Jin CANDACE Negative Normal NEGATIVE [facility] Comment on above: Performed By: #### P OCGLUC #### [facility] [address] [place] [address] Dr. Gibson Jin CUT-OFFS SEE BELOW Normal [facility] Comment on above: Result Comment: AMP [...] ng/mL Performed By: #### P OCGLUC #### [facility] [address] [place] [address] Dr. Gibson Jin DRUG CUT HEADER DRUG CLASS TEST SYSTEM CUT-OFF CONCENTRATIONS ARE FOLLOWS: Normal [facility] Comment on above: Performed By: #### P OCGLUC #### [facility] [address] [place] [address] Dr. Gibson Jin mAMP Negative Normal NEGATIVE [facility] Comment on above: Performed By: #### P OCGLUC #### [facility] [address] [place] [address] Dr. Gibson Jin MTD Negative Normal NEGATIVE [facility] Comment on above: Performed By: #### P OCGLUC #### [facility] [address] [place] [address] Dr. Gibson Jin OPI Positive Abnormal NEGATIVE [facility] Comment on above: Performed By: #### P OCGLUC #### [facility] [address] [place] [address] Dr. Gibson Jin OXY Negative Normal NEGATIVE [facility] [place] [facility] Comment on above: Performed By: #### P OCGLUC #### [facility] [address] [place] [address] Dr. Gibson Jin PCP Negative Normal NEGATIVE [facility] [place] [facility] Comment on above: Performed By: #### P OCGLUC #### [facility] [address] [address] [address] Gibson Jin PPX Negative Normal NEGATIVE [facility] [place] [facility] Comment on above: Performed By: #### P OCGLUC #### [facility] [address] [address] [address] Gibson Jin TCA Negative Normal NEGATIVE [facility] [place] [facility] Comment on above: Performed By: #### P OCGLUC #### [facility] [address] [address] [address] Gibson Jin THC Negative Normal NEGATIVE [facility] [place] [facility] Comment on above: Performed By: #### P OCGLUC #### [facility] [address] [place] [address] Dr. Gibson Jin POINT OF CARE GLUCOSEon 09-24 Glucose [Mass/Vol] 220 mg/dL Critically high 74-106 [facility] Comment on above: Performed By: #### P OCGLUC #### [facility] [address] [place] [address] Dr. Gibson Jin Glucose [Mass/Vol] 298 mg/dL Critically high 74-106 [facility] Comment on above: Performed By: #### P OCGLUC #### [facility] [address] [place] [address] Dr. Gibson Jin PROF 14(COMP METB)on 023 Albumin [Mass/Vol] 3.7 g/dL Normal 3.4-5.0 [facility] Comment on above: Performed By: #### C KARLIE HSTROPN #### [facility] [address] [place] [address] Dr. Gibson Jin Albumin/Globulin [Mass ratio] 1.0 {ratio} Normal [facility] Comment on above: Performed By: #### C KARLIE HSTROPN #### [facility] [address] [place] [address] Dr. Gibson Jin ALP [Catalytic activity/Vol] 175 U/L Critically high 46-116 [facility] Comment on above: Performed By: #### C MP, HSTROPN #### [facility] [address] [address] [address] Gibson Jin ALT [Catalytic activity/Vol] 167 U/L Critically high 14-59 [facility] [place] [facility] Comment on above: Performed By: #### C MP, HSTROPN #### [facility] [address] [address] [address] Gibson Jin Anion gap [Moles/Vol] 10.6 mmol/L Normal [facility] Comment on above: Performed By: #### C MP, HSTROPN #### [facility] [address] [address] [address] Gibson Jin AST [Catalytic activity/Vol] 49 U/L Critically high 15-37 [facility] [place] [facility] Comment on above: Performed By: #### C MP, HSTROPN #### [facility] [address] [place] [address] Dr. Gibson Jin Bilirubin [Mass/Vol] 0.4 mg/dL Normal 0.2-1.0 [facility] Comment on above: Performed By: #### C MP, HSTROPN #### [facility] [address] [address] [address] Gibson Jin Calcium [Mass/Vol] 9.1 mg/dL Normal 8.5-10.1 [facility] Comment on above: Performed By: #### C MP, HSTROPN #### [facility] [address] [address] [address] Gibson Jin Chloride [Moles/Vol] 102 mmol/L Normal 98-107 [facility] Comment on above: Performed By: #### C MP, HSTROPN #### [facility] [address] [address] [address] Gibson Jin CO2 [Moles/Vol] 26.8 mmol/L Normal 21.0-32.0 [facility] Comment on above: Performed By: #### C MP, HSTROPN #### [facility] [address] [address] [address] Gibson Jin Creatinine [Mass/Vol] 0.90 mg/dL Normal 0.55-1.02 [facility] Comment on above: Performed By: #### C MP, HSTROPN #### [facility] [address] [place] [address] Dr. Gibson Jin EGFR-AF AUSTRALIAN >60 Normal >=60 [facility] Comment on above: Performed By: #### C MP, HSTROPN #### [facility] [address] [address] [address] Gibson Jin EGFR-NON AF AUSTRALIAN >60 Normal >=60 [facility] Comment on above: Performed By: #### C MP, HSTROPN #### [facility] [address] [place] [address] Dr. Gibson Jin Globulin (S) [Mass/Vol] 3.6 g/dL Normal [facility] [place] [facility] Comment on above: Performed By: #### C MP, HSTROPN #### [facility] [address] [place] [address] Dr. Gibson Jin Glucose [Mass/Vol] 288 mg/dL Critically high 74-106 [facility] Comment on above: Performed By: #### C MP, HSTROPN #### [facility] [address] [place] [address] Dr. Gibson Jin Potassium [Moles/Vol] 3.4 mmol/L Critically low 3.5-5.1 [facility] [place] [facility] Comment on above: Performed By: #### C MP, HSTROPN #### [facility] [address] [place] [address] Dr. Gibson Jin Protein [Mass/Vol] 7.3 g/dL Normal 6.4-8.2 [facility] Comment on above: Performed By: #### C MP, HSTROPN #### [facility] [address] [place] [address] Dr. Gibson Jin Sodium [Moles/Vol] 136 mmol/L Normal 136-145 [facility] Comment on above: Performed By: #### C MP, HSTROPN #### [facility] [address] [place] [address] Dr. Gibson Jin Urea nitrogen [Mass/Vol] 13.0 mg/dL Normal 7.0-18.0 [facility] [place] [facility] Comment on above: Performed By: #### C MP, HSTROPN #### [facility] [address] [place], [place] [address] Dr. Gibson Jin Urea nitrogen/Creatinine [Mass ratio] 14.4 mg/mg Normal [facility] Comment on above: Performed By: #### C MP, HSTROPN #### [facility] [address] [address] [address] Gibson Jin TROPONIN, HIGH SENSITIVITYon 10-12-2022 HSTROP <4.0 Normal 4.0-51.3 [facility] [place] [facility] Comment on above: Result Comment: CUT- OFF POINTS HAVE BEEN ESTABLISHED BASED ON THE FOURTH UNIVERSAL DEFINITIONS OF MYOCARDIAL INFARCTION. THE UPPER REFERENCE LIMIT (URL) OF TROPONIN, DEFINED THE 99TH PERCENTILE OF cTnI DISTRIBUTION IN A REFERENCE POPULATION, HAS BEEN CONFIRMED THE DECISION THRESHOLD FOR PA DIAGNOSIS. Performed By: #### P OCGLUC #### [facility] [address] [address] [address] Gibson Jin HSTROP <4.0 Normal 4.0-51.3 [facility] [place] [facility] Comment on above: Result Comment: CUT- OFF POINTS HAVE BEEN ESTABLISHED BASED ON THE FOURTH UNIVERSAL DEFINITIONS OF MYOCARDIAL INFARCTION. THE UPPER REFERENCE LIMIT (URL) OF TROPONIN, DEFINED THE 99TH PERCENTILE OF cTnI DISTRIBUTION IN A REFERENCE POPULATION, HAS BEEN CONFIRMED THE DECISION THRESHOLD FOR PA DIAGNOSIS. Performed By: #### C MP, HSTROPN #### [facility] [address] [address] [address] Gibson Jin XR CHEST 1 Von [...] by: DELL WINN Date: 2022-10-12 10:36 Normal [facility] [place] [facility] COVID + FLU Quick Testingon 09-20-2022 SARS-CoV-2 (COVID-19) RNA RIDGE+probe Ql (Unsp spec) Negative [facility] [employer] Other COVID + FLU Quick Testing Negative [facility] [employer] Other Quick Strepon 09-20-2022 S. pyogenes Org specific cx Ql (Throat) Negative [facility] [employer] Other Quick Strep [facility] [employer] Other COVID/FLU/RSV RT-PCRon 06-30 SARS-CoV-2 (COVID-19) RNA RIDGE+probe Ql (Unsp spec) Negative [facility] [employer] Other COVID/FLU/RSV RT-PCR Negative [facility] [employer] Other Registrationon 02-04-2022 Registration [id number]# 1.00CD:127 [facility] Consenton 01-09-2022 Consent [id number] #1.00CD:127 [facility] COVID/FLU RT-PCRon SARS-CoV-2 (COVID-19) RNA RIDGE+probe Ql (Unsp spec) Positive [facility] [employer] Other COVID/FLU RT-PCR Negative [facility] [employer] Other Coding Summary.on 08-04-2021 Coding Summary. CD:[id number] Gh0bWw+PGhlYWQ+PE1FV PPaT95xoJDvmT5YD1bHW W1CGDYKQJHLPY4LBZ7aw FZ7WWzrS3CkfvIi YoswcKNbMC47ZOu1KHI1 qAopDMbooH2nuKOyV8w0 VnIpFR60gX44JJuiDZDv GsD4RgWorvnryHLk C9zzZfPheKPxKnx+PHRh YmxlIHdpZHRoPScxMDAl BfJsvPfvXH6jGv0eLGRo LWNvbGxhcHNlOiBj k1syUXXwFCdxQY4tcLpu W1UuoPI6ISHdw4q7Gl46 dHI+ZGQzXVQ0uUiySSwh z149BmAnh7jiJUI4 pAZyULwvSLB4I32sj6H9 PCOeIZBmVGL4bHC8wS3m xOgnzzguI9ZwtAOvZmT7 RSB9aZMoaQ1fiUeo eaijpM4tXkn+K18AYJ1P FVQQOI6XWeg4O4BvBmel dHI+CW92LHPiSX97iATh bIQwi6oblQr1UpAd XBEaGUU9qDjqYAikw0Ld GQXbJ62hvAYzo6H9VHOs eOwzvBPnZbGcqRM8jA7d NWxsfngqw7ovwctm Nbhyc1thxr18wU76P93c OQcvOJAhXSD2KJSgFWCz jMfgsk0uxD7uWn6+IDxj h1lcy1dvnDu0IsPs TSCdwoMmnSzyTVY8q3So Us96L3JmcPvfm5ZjVcj4 hg81yAUja0E8xEP3QXpe JXApaP4yFQstOiJ5 HBRdGrTjsS20wHVjDSpv Fq3kqBgdlLcnQM1oLNDb hedmENPvaL4hRZPamHRp wLrgEY1iSBIivfjh b710FaZyXRK8YJGowDGp D6QheJ9yBcArKWQbMXZd I4YdpTKlORidZ989RGqg AiD9USLtplDbC2El UQButNziNnG0t5D6Mh7W l3QxxhubGDN7ELcuHBJz UqKfFlCpEbY0V1YkGsu6 VERmaShsTK7aC5Kb FIBsnoqxmogqsTP1YHVd BZMhkH53dERkOBblHu0f k9F2x610CENvQOTqiN43 Lu6lcFmxDIHbaGHJ gI1hnriey6guqiwkWpFu GRUlRGi9SWt3KZCuuNuz VkMtNSF1FiS2TVS7jUXh vI8csXzgkctxoZ0w Oyc+I60maZ1kVJC7JTJ1 zyfvMSIjiwExHF54SP18 O8GiUaifmACluMP+PGRp ioUrlRedXC4cNtLa i3vzp5RtLNfcP6AnQOHe JDttCfo2ETGbVWP9mHS5 zA2jAGCsIWjue3O4rNI6 J5ByjtBafe6zx8jy MASmRIjyE81okPKvn8T1 PXJxoME2NRVydSyzWqVh qF12Bnw+KITomGrxm0Xt Mfyhb0mtp0sfcYt3 IjMwJSIgdmFsaWduPSJ0 u2NtQr36E03qTLmyDKNr KXYjQWNeSREgjZnbtc1r cL0fVd1+PGNvbCB3 yCY5qZ2dWVPyTiP0CKkm X817HtJaaBBoDtvav0nt u8puaIg2GqLrWEXjkzWp hKjgOJW2n1HhFs12 V54dXJfzKQZuFCMxCAMk FEVubIhlem0lvK1yLs1+ PJ4in8bwwb05yX06kEQ+ BXSfSNS5lNmwNWvy NQKphX9oRQhrNhY8YMNc UmWdaA77uXNpCEfqMr0g aFgyaWvnUX3hKDKimotr y821RiQjb1ndWYOq rRCaEPtjOEY8P80sk7F0 YSBeVPGjJEU8uUT8sM6h bGlnbjogbGVmdDsgdmVy cMjuGDjdMZjjY881 IHRvcDsnPlBhdGllbnQg HfNqTAe5P6AeEts3QQWn sGbvIH3oyINwGHnxUd1r rGwhtSsmTR7bIBXc rlczm807XeUkw1tfOHAd kTXoUKmhZUF7R67xl9D7 LNJdZAYxKQY6pTX8nC0b bGlnbjogbGVmdDsg iqGndHwmRRhnQGajS776 IHRvcDsnPkJpcnRoIERh fHY8HX65VC24vYTud3P6 dNY1G7IbISSgyogk hyyyvPL3JMPyFWRpnJ13 Oi3reJmxBi6pLNBbKFR5 QFQruYPtG5UxcM2bYkAt KYVmDSIxY1HleOVr WJyqC826HZiiIxV1GVJp mtAzS4DhSEIrqOgdHvJ6 w6V5Wx7YH2W6BB30KS34 uRZmv6H0sXV1U5Qj OHNjmednmiqxiNT8JWZo JGIixW71Px2ciGhcQw1s NFHmLZD2GETunMQbN0Lr qD5lCxQhPCQbJWQy Y9LmbOKvQOteS357AUlx RuO4IHHdnqLfN7EvLQDt xDryCzZ4e7K4Qk5YGXg9 WV05KD42bTHwc0B5 iPD0V4ErXYIurhuixlxm cUZ0NRHbGOLknC86Uj7o eTqoCt2kGDZaZUF7AMVw bIOrZ1GgkS7tNhMu ZRFoTPTtU1MezWAiLPev O475ZDusIiF9ORPeliKa Z7EgJDXcoXqeDkL5w3M8 Ny1QGAYlOB32IYD5 cCJ1ZA55GV93O9DePzla dGFibGU+PHRhYmxlIHdp ZHRoPScxMDAlJyBzdHls MW1uJl0mMCUwDLOx uGionKVfTpLoq2tgVGCu BJltIY3voOjvL8HzdGL2 XXKjb7n2Km04R32qG4Gb dXA+DUXbbYD0eZB1 fJ8iCqOtMaV8DFcuN525 NyBmfPTlTfwye6npk5qo gMg5HfJ6YBOhhrCcoNbk XRY0m7IjMy74E60w IHdpZHRoPSIxNSUiIHZh tOphdg4gsX0zRv8+PGNv iCX7hWZ7qK4wOwEvIgC9 WItoP354DkVfbNFf Pymds0hur8ypjGo6YzOs WSNstvVrcTisAEI6b0Wv Is11Q2WbpXkpq7NeOxr8 cb90eTTue9T6vJE0 U2XmPFNwazqybQIygVbg AD3oXDVfnvctHZJmzY5x WSMpG8m6GbUtKwR1PIfk J3OfpzA5ADHhvBUg NQrpYHJ3Y08ao3F2KSQo DAGaCEC3mTV2tG0zbVax bjogbGVmdDsgdmVydGlj IAgvWLoaG062KAVl pEmcASCrcJ1eTZNraNVt iAmxWC1oRYOggzacWvoQ UkNJQSwgTUFSSUEgRDwv dGQ+GVDgTCF1wUgl OAcwOGRvkT8eELLgQ2t2 YrVbSxV4KRjqB6KiLVTg nitvVv95oZ9tBvCkFhT5 NNwvY2YcndH4TSMo bQLwBFrzQBP5Q31la6V4 DTJzARSdCUL5yXY1zH2t bGlnbjogbGVmdDsgdmVy mUzuNYzjIZtpG876 PREtcOdlYuXyLpB0UrM3 NyW5J7OxFcv1IXZlcRdd VG7diDOkOPnfJn0pxTju eIqsQP7fNSIzkbci RQOamJ7vWROtiVRurDmw LN5yPPYzltuoa000MbXx ZOD4AVTdiKBmP2RefM9g LrHgWOCxJZVfG7Yy iXLtLEeuL465GRsoVoU2 QKPtopXnN1VpHWTgyNzf OsU3s5L5Lf56CBUFQGUm czwvdGQ+PHRkIHN0 oNpqXIzdFKOlqC5rKNRl M4o6FqFyVdY4TYbaS9Ti FWZijuicFo48jD2zJpPl HgU1CLsuX9GnxmQ2 NXHbwOGpVXqeUJA8H69m x4N2CWLgOVEiHWE4nZD4 wX5tiDntfofzvDWnoAoz dmVydGljYWwtYWxp O213GAXinUedJpYmxRNp ZTwvdGQ+BWTeBRS5yQos AYgwCKGmeQ6jTXSbG1a0 ZxZsWpW6HAsfE0Sg DLGgsakcQp59lX8vUdEp CoD3YGrvR8BypjC9KLQl qBMlKLzrCRG3U83ko2L5 YVYyMLBkMUJ1tRL2 gH8erTrewuneyINucGnz ntBhqSzkUMjfVBjbG061 OUSazMthSiXmN1Yvtchl ZzwvdGQ+ME22vn94 G7AiKjseIjo5ELWlHRD7 vGP2zI4hGTFcMBtub8H3 wCV6M5QttnDsyt8cz1ou JAFcDGqkT94jiXTx x3N2JFEltMT1LZSxcFid RaIllM28Iji+PGNvbGdy w8EmHavqq4yqz4ptfHd5 IjMwJSIgdmFsaWdu KMW9q8VlVs31Z33oMSpd ZHRoPSIzMCUiIHZhbGln pb4gvM4mYy2+PGNvbCB3 hAD6hH4gVzVyQeR2 TOqnO989ZwOirRDgIwas g9gey3nilUo3OyTxQXIm jgVctWbsPUU7z6FaSe11 U5HhyGpri3FbIsr1 pj59sSWqg5Z7oQH1G1Jq ALYdjinfmQDktOgvBX5h MATbactlPHXjfZ6nVDRw D5n3NxTuTbW8TKuu Y6NdjrL5OHWvlDQrJTQw cNETmW2tqzhft2wiyyyp DaXqGNPuPPj6NTl3LYNo zTteNaXcQWB3EdE2 AOC9hEPajB9ynMgrylmr vB6yCle+PMq8b7iovAMc JC1azIX1LS33KZ27uWPa o2Q8aIR6Y8RtLYIo cqnhdzgrgDH4MGPoMZUu kC71Gt0ndCrySw9uCNCl TNG3XDGxuJZbX5WhkE4i CkFcKUUkHLMfL6Qw wLNkYMrnJ788WLsdQuO9 MFLqnlRhI5TpBAJvxAau RyT8g0G3Ll7QYX11VU89 CM06nVNyz5Y2pVG9 V1BeHPOvlfvhywkytNB3 XTVfPXNffA79Ik3icCdj Sv9mAQAjJAM4MJLlqZPz R8GgrJ8aFcDlSHRr TPJxL3BsiQLkRBfpZ177 ERfmCfO0TBRmkaCvH5Kl EIYmaRveHdU7c8V6Hn6G Xw80UL09DE53aJAc z4C5yDR6V4WkRFZuoofa znoisUK3CEQjTXFkeS08 Ds1bmMmrNn2aQBXsKWI4 HEDmlSNzM7LjsH9y GuJwNKPfNCGqQ8YjqMFn NFfrT776VCtmPrM6IGQn czCqH5KmJIOynStyDwP1 t8J6Kr4QKXjfsyh5 D6KpDezydOC+QH93AJKx XW91vNCabTVwn2fsdLz1 BqHfBCNbHTA3wEznKEke d4SqUIOtS62hnHZd c2U6 (more content not included)... Normal [facility] Consent for Treatmenton Consent for Treatment [id number]#1.00CD:127 Normal [facility] COVID-19 ([facility]on 08-01-2021 SARS-CoV-2 (COVID-19) RNA RIDGE+probe Ql (Resp) Not detected Normal Not Detected [facility] Comment on above: Result Comment: This test result should be correlated with clinical presentations and medical history by a healthcare provider to determine its clinical significance. This assay was performed by a reverse transcriptase real-time polymerase chain reaction (rt PCR) method on the [employer] system. This test has been authorized only [...] or revoked sooner. Performed By: #### 2 [id number] #### [facility] [address] [place] [address] SARS-CoV-2 (COVID-19) RNA RIDGE+probe Ql (Unsp spec) Pass Normal Pass [facility] Comment on above: Performed By: #### 2 [id number] #### [facility] [address] [place] [address] Specimen source Nom (Unsp spec) Nasal Normal [facility] Comment on above: Performed By: #### 2 [id number] #### [facility] [address] [place] [address] COVID-19 ([facility])on 07-30-2021 ADMITTED TO INTENSIVE CARE UNIT FOR CONDITION OF INTEREST:FIND:PT: Unknown Normal [facility] Comment on above: Performed By: #### 2 [id number] #### [facility] [address] [place] [address] EMPLOYED IN A HEALTHCARE SETTING:FIND:PT: Unknown Normal [facility] Comment on above: Performed By: #### 2 [id number] #### [facility] [address] [place] [address] FIRST TEST FOR CONDITION OF INTEREST:FIND:PT: Unknown Normal [facility] Comment on above: Performed By: #### 2 [id number] #### [facility] [address] [place] [address] HAS SYMPTOMS RELATED TO CONDITION OF INTEREST:FIND:PT: Unknown Normal [facility] Comment on above: Performed By: #### 2 [id number] #### [facility] [address] [place] [address] HOSPITALIZED FOR CONDITION OF INTEREST:FIND:PT: Unknown Normal [facility] Comment on above: Performed By: #### 2 [id number] #### [facility] [address] [place] [address] STATUS:FIND:PT: Unknown Normal [facility] Comment on above: Performed By: #### 2 [id number] #### [facility] [address] [place] [address] RESIDES IN A CONGREGATE CARE SETTING:FIND:PT: Unknown Normal [facility] Comment on above: Performed By: #### 2 [id number] #### [facility] [address] [place] [address] CTA CHEST W CONTRASTon 01-14 CTA CHEST [...] Kwabena Peña MD 01/13/21 Final result Normal [facility] CBC Auto DifferentialOrdered By: Tita Palma on 01-13-2021 Absolute Eos # 0.10 [facility] Work Phone: Absolute Immature Granulocyte NOT REPORTED [facility] Phone: Absolute Lymph # 0.80 Low [facility] Work Phone: Absolute [place] # 0.50 [facility] Work Phone: Basophils (Bld) [#/Vol] 0.00 10*3/uL [facility] Work Phone: Basophils/100 WBC (Bld) 0 % 0 - 2 % [facility] Phone: Differential Type YES [facility] [employer] Work Phone: Eosinophils/100 WBC (Bld) 1 % 0 - 5 % [facility] Phone: Hematocrit (Bld) [Volume fraction] 42.0 % 36 - 46 % [facility] Work Phone: Hemoglobin.gastrointes tinal spec 1 Ql (Stl) 14.3 g/dL 12.0 - 16.0 g/dL [facility] Phone: Immature Granulocytes NOT REPORTED 0 % [facility] Work Phone: Interpretation and review of laboratory results Abnormal [facility] Phone: Lymphocytes/100 WBC (Bld) 11 % Low 15 - 40 % [facility] Work Phone: MCH (RBC) [Entitic mass] 29.5 pg 26 - 34 pg [employer] Phone: MCHC (RBC) [Mass/Vol] 34.1 g/dL 31 - 37 g/dL [facility] Work Phone: MCV (RBC) [Entitic vol] 86.5 fL 80 - 100 fL [facility] Work Phone: Monocytes/100 WBC (Bld) 7 % 4 - 8 % [facility] Work Phone: NRBC Automated NOT REPORTED per 100 W[employer] [facility] Work Phone: Platelet distribution width (Bld) [Ratio] 13.3 % 12.1 - 15.2 % [employer] Phone: Platelet Estimate NOT REPORTED [employer] Phone: Platelet mean volume (Bld) [Entitic vol] NOT REPORTED 6.0 - 12.0 fL [employer] Phone: Platelets (Bld) [#/Vol] 340 10*3/uL [employer] Phone: RBC (Bld) [#/Vol] 4.86 10*6/uL 4.0 - 5.2 m/uL [employer] Phone: RBC (Bld) [#/Vol] NOT REPORTED [facility]: Segmented neutrophils/100 WBC (Bld) 81 % High 47 - 75 % [employer] Phone: Segs Absolute 6.30 [employer] Work Phone: WBC (Bld) [#/Vol] 7.8 10*3/uL [employer] Phone: WBC (Bld) [#/Vol] NOT REPORTED [employer] Phone: [employer] Phone: CBC with Diffon 01-13-2021 Abs. Basophil 0.00 k/uL Normal 0.0-0.2 [facility] Comment on above: Performed By: #### D DRE NARANJO, REJEC #### [facility] [address] [place] [address] [employer]: Flash Jaramillo MD Abs.Neutrophil (Seg) 6.30 k/uL Normal 2.5-7.0 [facility] Comment on above: Performed By: #### D DRE NARANJO, REJEC #### [facility] [address] [place] [address] [employer]: Flash Jaramillo MD Auto Diff Performed YES Normal [facility] Comment on above: Performed By: #### DRE SIU, REJEC #### [facility] [address] [place] [address] [employer]: Flash Jaramillo MD Basophils/100 WBC (Bld) 0 % Normal 0-2 [facility] Comment on above: Performed By: #### DRE SIU, REJEC #### [facility] [address] [place] [address] [employer]: Flash Jaramillo MD Eosinophils (Bld) [#/Vol] 0.10 10*3/uL Normal 0.0-0.4 [facility] Comment on above: Performed By: #### Maris NARANJO CDP, REJEC #### [facility] [address] [place] [address] [employer]: Flash Jaramillo MD Eosinophils/100 WBC (Bld) 1 % Normal 0-5 [facility] Comment on above: Performed By: #### Maris NARANJO CDP, REJEC #### [facility] [address] [place] [address] [employer]: Flash Jaramillo MD Erythrocyte distribution width (RBC) [Ratio] 13.3 % Normal 12.1-15.2 [facility] Comment on above: Performed By: #### D DRE NARANJO, REJEC #### [facility] [address] [place], [place] [id number] [employer]: Flash Jaramillo MD Hematocrit (Bld) [Volume fraction] 42.0 % Normal 36-46 [facility] [facility] Comment on above: Performed By: #### D DRE NARANJO, REJEC #### [facility] [address] [place] [address] Mine Shifter: Flash Jaramillo MD Hemoglobin (Bld) [Mass/Vol] 14.3 g/dL Normal 12.0-16.0 [facility] Comment on above: Performed By: #### DRE SIU, REJEC #### [facility] [address] [place] [address] Mine Shifter: Flash Jaramillo MD Lymphocytes (Bld) [#/Vol] 0.80 10*3/uL Low 1.0-4.8 [facility] Comment on above: Performed By: #### DRE SIU, REJEC #### [facility] [address] [place], [place] [id number] Mine Shifter: Flash Jaramillo MD Lymphocytes/100 WBC (Bld) 11 % Low 15-40 [facility] Comment on above: Performed By: #### DRE SIU, REJEC #### [facility] [address] [place] [address] Mine Shifter: Flash Jaramillo MD MCH (RBC) [Entitic mass] 29.5 pg Normal 26-34 [facility] Comment on above: Performed By: #### DRE SIU, REJEC #### [facility] [address] [place], [place] [id number] Mine Shifter: Flash Jaramillo MD MCHC (RBC) [Mass/Vol] 34.1 g/dL Normal 31-37 [facility] Comment on above: Performed By: #### D DRE NARANJO, REJEC #### [facility] [address] [place] [address] Mine Shifter: Flash Jaramillo MD MCV (RBC) [Entitic vol] 86.5 fL Normal 80-100 [facility] Comment on above: Performed By: #### D DRE NARANJO, REJEC #### [facility] [address] [place] [address] Mine Shifter: Flash Jaramillo MD Monocytes (Bld) [#/Vol] 0.50 10*3/uL Normal 0.0-1.0 [facility] Comment on above: Performed By: #### DRE SIU, REJEC #### [facility] [address] [place] [address] Mine Shifter: Flash Jaramillo MD Monocytes/100 WBC (Bld) 7 % Normal 4-8 [facility] Comment on above: Performed By: #### DRE SIU, REJEC #### [facility] [address] [place] [address] Mine Shifter: Flash Jaramillo MD Neutrophil (Seg) 81 % High 47-75 [facility] Comment on above: Performed By: #### DRE SIU, REJEC #### [facility] [address] [place] [address] Mine Shifter: Flash Jaramillo MD Platelets (Bld) [#/Vol] 340 10*3/uL Normal 140-450 [facility] Comment on above: Performed By: #### DRE SIU, REJEC #### [facility] [address] [place] [address] Mine Shifter: Flash Jaramillo MD RBC (Bld) [#/Vol] 4.86 10*6/uL Normal 4.0-5.2 [facility] Comment on above: Performed By: #### D DRE NARANJO, REJEC #### [facility] [address] [place] [address] Mine Shifter: Flash Jaramillo MD WBC (Bld) [#/Vol] 7.8 10*3/uL Normal 3.5-11.0 [facility] Comment on above: Performed By: #### D DRE NARANJO, REJEC #### [facility] [address] [place] [id number] Mine Shifter: Flash Jaramillo MD Abs.Imm.Granulocyte NOT REPORTED Normal 0.00-0.30 [facility] Comment on above: Performed By: #### D DRE NARANJO, REJEC #### [facility] [address] [place] [address] Mine Shifter: Flash Jaramillo MD Immature Granulocyte NOT REPORTED Normal 0 [facility] Comment on above: Performed By: #### D DRE NARANJO, REJEC #### [facility] [address] [place] [address] Mine Shifter: Flash Jaramillo MD MPV NOT REPORTED Normal 6.0-12.0 [facility] Comment on above: Performed By: #### D DRE NARANJO, REJEC #### [facility] [address] [place] [phone] Mine Shifter: Flash Jaramillo MD NRBC Automated NOT REPORTED Normal [facility] Comment on above: Performed By: #### D DRE NARANJO, REJEC #### [facility] [address] [place] [address] Mine Shifter: Flash Jaramillo MD Platelet Estimate NOT REPORTED Normal [facility] Comment on above: Performed By: #### D DRE NARANJO, REJEC #### [facility] [address] [place] [address] Mine Shifter: Flash Jaramillo MD RBC morphology finding Nom (Bld) NOT REPORTED Normal [facility] Comment on above: Performed By: #### D DRE NARANJO, REJEC #### [facility] [address] [place] [address] Mine Shifter: Flash Jaramillo MD WBC Morphology NOT REPORTED Normal [facility] Comment on above: Performed By: #### D JOSE A, DRE, REJEC #### [facility] [address] [place] [address] Mine Shifter: Flash Jaramillo MD CTA CHEST W CONTRASTOrdered By: Tita Palma on 01-13-2021 No evidence for acute large occlusive pulmonary embolism. No evidence for thoracic aortic aneurysm or dissection flap. No suspicious lung infiltrates or consolidation. Hepatic steatosis. Mild gastroesophageal wall thickening, correlate clinically. [employer] Phone: EXAMINATION: CTA CHEST W CONTRAST HISTORY: [...] distal esophagitis/wall lesion. No acute bony abnormality. [employer] Phone: Moreno, Mhpn Incoming Radiant Results From [employer] - 01/13/2021 10:06 PM EDT EXAMINATION: CTA [...] steatosis. Mild gastroesophageal wall thickening, correlate clinically. [facility] [employer] Work Phone: [facility] [employer] Work Phone: Comp Metabolic Profon 2020 (cont.) Normal [facility] Comment on above: Result Comment: Aver age GFR for 50-59 years old: 93 mL/min/1.73sq m Chronic Kidney Disease: <60 mL/min/1.73sq m Kidney failure: <15 mL/min/1.73sq m eGFR calculated using average adult body mass. Additional eGFR calculator available at: http://www.Metricly.IDx/multiple_crcl_2011.htm Performed By: #### C P, TROPI #### [facility] [address] [place] [address] Mine Shifter: Flash Jaramillo MD Albumin [Mass/Vol] 4.3 g/dL Normal 3.5-5.2 [facility] Comment on above: Performed By: #### C P, TROPI #### [facility] [address] [place], [place] [phone] Mine Shifter: Flash Jaramillo MD Alkaline Phos 165 U/L High 35-104 [facility] Comment on above: Performed By: #### C P, TROPI #### [facility] [address] [place], [place] [id number] Mine Shifter: Flash Jaramillo MD ALT [Catalytic activity/Vol] 24 U/L Normal 5-33 [facility] Comment on above: Performed By: #### C P, TROPI #### [facility] [address] [place], [place] [phone] Mine Shifter: Flash Jaramillo MD Anion gap [Moles/Vol] 10 mmol/L Normal 9-17 [facility] Comment on above: Performed By: #### C P, TROPI #### [facility] [address] [place], [place] [phone] Mine Shifter: Falsh Jaramillo MD AST [Catalytic activity/Vol] 14 U/L Normal <32 [facility] Comment on above: Performed By: #### C P, TROPI #### [facility] [address] [place] [address] Mine Shifter: Flash Jaramillo MD Bilirubin [Mass/Vol] 0.24 mg/dL Low 0.30-1.20 [facility] Comment on above: Performed By: #### C P, TROPI #### [facility] [address] [place], [place] [phone] Mine Shifter: Flash Jaramillo MD BUN/CRE Ratio 16 Normal 9-20 [facility] Comment on above: Performed By: #### C P, TROPI #### [facility] [address] [place], [place] [id number] Mine Shifter: Flash Jaramillo MD Calcium [Mass/Vol] 9.9 mg/dL Normal 8.6-10.4 [facility] Comment on above: Performed By: #### C P, TROPI #### [facility] [address] [place], [place] [phone] Mine Shifter: Flash Jaramillo MD Chloride [Moles/Vol] 101 mmol/L Normal 98-107 [facility] Comment on above: Performed By: #### C P, TROPI #### [facility] [address] [place], [place] [phone] Mine Shifter: Flash Jaramillo MD CO2 [Moles/Vol] 24 mmol/L Normal 20-31 [facility] Comment on above: Performed By: #### C P, TROPI #### [facility] [address] [place], [place] [phone] Mine Shifter: Flash Jaramillo MD Creatinine [Mass/Vol] 1.04 mg/dL High 0.50-0.90 [facility] Comment on above: Performed By: #### C P, TROPI #### [facility] [address] [place], [place] [phone] Mine Shifter: Flash Jaramillo MD GFR, Amer >60 Normal >60 [facility] Comment on above: Performed By: #### C P, TROPI #### [facility] [address] [place], [place] [id number] Mine Shifter: Flash Jaramillo MD GFR,non Amer 55 mL/min Low >60 [facility] Comment on above: Performed By: #### C P, TROPI #### [facility] [address] [place], [place] [phone] Mine Shifter: Flash Jaramillo MD Glucose [Mass/Vol] 126 mg/dL High 70-99 [facility] Comment on above: Performed By: #### C P, TROPI #### [facility] [address] [place], [place] [phone] Mine Shifter: Flash Jaramillo MD Potassium [Moles/Vol] 4.2 mmol/L Normal 3.7-5.3 [facility] Comment on above: Performed By: #### C P, TROPI #### [facility] [address] [place], [place] [id number] Mine Shifter: Flash Jaramillo MD Protein [Mass/Vol] 7.9 g/dL Normal 6.4-8.3 [facility] Comment on above: Performed By: #### C P, TROPI #### [facility] [address] [place], [place] [id number] Mine Shifter: Flash Jaramillo MD Sodium [Moles/Vol] 135 mmol/L Normal 135-144 [facility] Comment on above: Performed By: #### C P, TROPI #### [facility] [address] [place], [place] [phone] Mine Shifter: Flash Jaramillo MD Urea nitrogen [Mass/Vol] 17 mg/dL Normal 6-20 [facility] Comment on above: Performed By: #### C P, TROPI #### [facility] [address] [place], [place] [phone] Mine Shifter: Flash Jaramillo MD Albumin/Glob Ratio NOT REPORTED Normal 1.0-2.5 [facility] Comment on above: Performed By: #### C P, TROPI #### [facility] [address] [place], [place] [phone] Mine Shifter: Flash Jaramillo MD Staging: NOT REPORTED Normal [facility] Comment on above: Performed By: #### C P, TROPI #### [facility] [address] [place], [place] [id number] Mine Shifter: Flash Jaramillo MD Comprehensive Metabolic Pane lOrdered By: Tita Palma on 01-13-2021 Albumin [Mass/Vol] 4.3 g/dL 3.5 - 5.2 g/dL [employer] Phone: Albumin/Globulin Ratio NOT REPORTED [employer] Phone: ALP (Bld) [Catalytic activity/Vol] 165 U/L High 35 - 104 U/L [employer] Phone: ALT [Catalytic activity/Vol] 24 U/L 5 - 33 U/L [employer] Phone: Anion gap [Moles/Vol] 10 mmol/L 9 - 17 mmol/L [employer] Phone: AST [Catalytic activity/Vol] 14 U/L <32 [employer] Phone: Bilirubin [Mass/Vol] 0.24 mg/dL Low 0.30 - 1.20 mg/dL [employer] Phone: Calcium [Mass/Vol] 9.9 mg/dL 8.6 - 10. 4 mg/dL [employer] Phone: Chloride [Moles/Vol] 101 mmol/L 98 - 10 7 mmol/L [employer] Phone: CO2 [Moles/Vol] 24 mmol/L 20 - 31 mmol/L [employer] Phone: Creatinine [Mass/Vol] 1.04 mg/dL High 0.50 - 0.90 mg/dL [employer] Phone: Free PSA/Total PSA [Mass fraction] 7.9 g/dL 6.4 - 8.3 g/dL [employer] Phone: GFR >60 >60 mL/min [employer] Phone: GFR Non- 55 mL/min Low >60 [employer] Phone: GFR/1.73 sq M.predicted MDRD (S/P/Bld) [Vol rate/Area] [employer] Phone: Comment on above: Average GFR for 50-5 9 years old: 93 mL/min/1.73sq m Chronic Kidney Disease: <60 mL/min/1.73sq m Kidney failure: <15 mL/min/1.73sq m eGFR calculated using average adult body mass. Additional eGFR calculator available at: http://www.BDA/multiple_crcl_2012.htm GFR/1.73 sq M.predicted MDRD (S/P/Bld) [Vol rate/Area] NOT REPORTED [employer] Phone: Glucose [Mass/Vol] 126 mg/dL High 70 - 99 mg/dL [employer] Phone: Interpretation and review of laboratory results Abnormal [employer] Phone: Potassium [Moles/Vol] 4.2 mmol/L 3.7 - 5.3 mmol/L [employer] Phone: Sodium [Moles/Vol] 135 mmol/L 135 - 144 mmol/L [employer] Phone: Urea nitrogen (BldV) [Mass/Vol] 17 mg/dL 6 - 20 mg/dL [employer] Phone: Urea nitrogen/Creatinine (Bld) [Mass ratio] 16 [employer] Phone: [employer] Phone: D-Dimer Teston 01-13-2021 D-Dimer Test 0.88 mg/L FEU High 0.00-0.59 [facility] Comment on above: Result Comment: When [...] D JOSE A, CDP, REJEC #### [facility] [address] [place] [address] Mine Shifter: Flash Jaramillo MD D-Dimer, QuantitativeOrdered By: Tita Palma on 01-13-2021 D-Dimer, Quant 0.88 High [employer] Phone: Comment on above: When combined with [...] Interpretation and review of laboratory results Abnormal [employer] Phone: [employer] Phone: SPECIMEN REJECTIONOrdered By : Tita Palma on 01-13-2021 - NOT REPORTED [facility]: Ordered Test CP TROP [facility] [place] Phone: Reason for Rejection Unable to perform testing: Specimen hemolyzed. [employer] Phone: Specimen source Nom (Unsp spec) BLOOD IV START [facility] [place] Phone: [facility] Phone: Specimen Rejectionon 021 Reason for rejection Unable to perform testing: Specimen hemolyzed. [facility] Comment on above: Performed By: #### D DRE NARANJO, REJEC #### [facility] [address] [place] [address] Mine Shifter: Flash Jaramillo MD Source of sample BLOOD IV START [facility] Comment on above: Performed By: #### D DRE NARANJO, REJEC #### [facility] [address] [place], [place] [id number] Mine Shifter: Flash Jaramillo MD Test ordered CP TROP [facility] Comment on above: Performed By: #### D DRE NARANJO, REJEC #### [facility] [address] [place] [address] Mine Shifter: Flash Jaramillo MD ----- NOT REPORTED [facility] Comment on above: Performed By: #### D DRE NARANJO, REJEC #### [facility] [address] [place], [place] [phone] Mine Shifter: Flash Jaramillo MD Troponinon 01-13-2021 Troponin, High Sens <6 Normal 0-14 [facility] Comment on above: Result Comment: High Sensitivity Troponin values cannot be compared with other Troponin methodologies. Patients with high levels of Biotin oral intake (i.e >5mg/day) may have falsely decreased Troponin levels. Samples collected within 8 hours of biotin intake may require additional information for diagnosis. Performed By: #### T ROPI #### [facility] [address] [place], [place] [phone] Mine Shifter: Flash Jaramillo MD Troponin Interp. NOT REPORTED Normal [facility] Comment on above: Performed By: #### T ROPI #### [facility] [address] [place], [place] [phone] Mine Shifter: Flash Jaramillo MD Troponin T NOT REPORTED Normal <0.03 [facility] Comment on above: Performed By: #### T ROPI #### [facility] [address] [place], [place] [phone] Mine Shifter: Flash Jaramillo MD Troponin, High Sens <6 Normal 0-14 [facility] Comment on above: Result Comment: High Sensitivity Troponin values cannot be compared with other Troponin methodologies. Patients with high levels of Biotin oral intake (i.e >5mg/day) may have falsely decreased Troponin levels. Samples collected within 8 hours of biotin intake may require additional information for diagnosis. Performed By: #### C P, TROPI #### [facility] [address] [place] [address] Mine Shifter: Flash Jaramillo MD Troponin Interp. NOT REPORTED Normal [facility] Comment on above: Performed By: #### C P, TROPI #### [facility] [address] [place] [address] Mine Shifter: Flash Jaramillo MD Troponin T NOT REPORTED Normal <0.03 [facility] Comment on above: Performed By: #### C P, TROPI #### [facility] [address] [place] [address] Mine Shifter: Flash Jaramillo MD TroponinOrdered By: Tita Palma on 01-13-2021 Troponin Interp NOT REPORTED [facility] Work Phone: Troponin T NOT REPORTED <0.03 ng/mL [employer] Work Phone: Troponin, High Sensitivity <6 0 - 14 ng/L [facility] Work Phone: Comment on above: High Sensitivity Troponin values cannot be compared with other Troponin methodologies. Patients with high levels of Biotin oral intake (i.e >5mg/day) may have falsely decreased Troponin levels. Samples collected within 8 hours of biotin intake may require additional information for diagnosis. [facility] Work Phone: Troponin Interp NOT REPORTED [facility] Work Phone: Troponin T NOT REPORTED <0.03 ng/mL [employer] Work Phone: Troponin, High Sensitivity <6 0 - 14 ng/L [employer] Phone: Comment on above: High Sensitivity Troponin values cannot be compared with other Troponin methodologies. Patients with high levels of Biotin oral intake (i.e >5mg/day) may have falsely decreased Troponin levels. Samples collected within 8 hours of biotin intake may require additional information for diagnosis. [employer] Phone: XR CHEST PORTABLEon 01-14-20 XR CHEST [...] Sarbjit Ramirez MD 01/13/21 Final result Normal [facility] XR CHEST PORTABLEOrdered By: Tita Palma on 01-13-2021 No focal consolidation, pneumothorax or pleural effusion. [employer] Phone: EXAM: XR CHEST PORTABLE HISTORY: Shortness of breath, chest pain. COMPARISON: None. TECHNIQUE: AP radiograph of the chest was performed. FINDINGS: No focal consolidation, pneumothorax or pleural effusion. There is mild elevation of the right hemidiaphragm. The cardiomediastinal silhouette is unremarkable. There are degenerative changes of the spine. [employer] Phone: Moreno, Mhpn Incoming Radiant Results From [employer] - 01/13/2021 8:24 PM EDT EXAM: XR CHEST PORTABLE HISTORY: Shortness of breath, chest pain. COMPARISON: None. TECHNIQUE: AP radiograph of the chest was performed. FINDINGS: No focal consolidation, pneumothorax or pleural effusion. There is mild elevation of the right hemidiaphragm. The cardiomediastinal silhouette is unremarkable. There are degenerative changes of the spine. IMPRESSION: No focal consolidation, pneumothorax or pleural effusion. [employer] Phone: [employer] Phone: Vital Signs Date Time Vital Sign Value Performing Clinician Facility 06-16-2023 10:00-0500 Body height 157.48 cm Samra Yehmond Other [facility] Other 06-16-2023 10:00-0500 Body mass index (BMI) [Ratio] 35.52 kg/m2 Samra Yehmond Other [facility] Other 06-16-2023 10:00-0500 Body temperature 98 [degF] Samra Yehmond Other [facility] Other 06-16-2023 10:00-0500 Body weight 88.09 kg Samra Yehmond Other [facility] Other 06-16-2023 10:00-0500 Diastolic blood pressure 80 mm[Hg] Samra Yehmond Other [facility] Other 06-16-2023 10:00-0500 Respiratory rate 18 /min Samra Yehmond Other [facility] Other 06-16-2023 10:00-0500 SaO2% (BldA) [Mass fraction] 95 % Samra Wick Other [facility] Other 06-16-2023 10:00-0500 Systolic blood pressure 132 mm[Hg] Samra Wick Other [facility] Other 09-20-2022 11:45-0500 Body height 157.48 cm Siobhan Meyers Other [facility] Other 09-20-2022 11:45-0500 Body mass index (BMI) [Ratio] 34.93 kg/m2 Siobhan Gonzalezault Other [facility] Other 09-20-2022 11:45-0500 Body temperature 98.3 [degF] Siobhan Gonzalezault Other [facility] Other 09-20-2022 11:45-0500 Body weight 86.64 kg Siobhan Meyers Other [facility] Other 09-20-2022 11:45-0500 Respiratory rate 18 /min Siobhan Gonzalezault Other [facility] Other 09-20-2022 11:45-0500 SaO2% (BldA) [Mass fraction] 98 % Siobhan Gonzalezault Other [facility] Other 06-30-2022 18:35-0500 Body height 157.48 cm Cassandra Dumont Other [facility] Other 06-30-2022 18:35-0500 Body mass index (BMI) [Ratio] 34.56 kg/m2 Cassandra Dumont Other [facility] Other 06-30-2022 18:35-0500 Body temperature 97.7 [degF] Cassandra Dumont Other [facility] Other 06-30-2022 18:35-0500 Body weight 85.73 kg Cassandra Dumont Other [facility] Other 06-30-2022 18:35-0500 Diastolic blood pressure 72 mm[Hg] Cassandra Dumont Other [facility] Other 06-30-2022 18:35-0500 Respiratory rate 18 /min Cassandra Dumont Other [facility] Other 06-30-2022 18:35-0500 SaO2% (BldA) [Mass fraction] 98 % Cassandra Dumont Other [facility] Other 06-30-2022 18:35-0500 Systolic blood pressure 126 mm[Hg] Cassandra Dumont Other [facility] Other 12-18-2021 16:55-0400 Body height 157.48 cm Siobhan Luigi Other [facility] Other 12-18-2021 16:55-0400 Body mass index (BMI) [Ratio] 32.92 kg/m2 Siobhan Luigi Other [facility] Other 12-18-2021 16:55-0400 Body temperature 98.9 [degF] Siobhan Luigi Other [facility] Other 12-18-2021 16:55-0400 Body weight 81.65 kg Siobhan Meyres Other [facility] Other 12-18-2021 16:55-0400 Respiratory rate 16 /min Siobhan Meyers Other [facility] Other 12-18-2021 16:55-0400 SaO2% (BldA) [Mass fraction] 95 % Siobhan Meyers Other [facility] Other 01-13-2021 22:34-0400 Diastolic blood pressure 80 mm[Hg] Tita Palma MD Work Phone: [facility] Work Phone: 01-13-2021 22:34-0400 Heart rate 78 /min Tita Palma MD Work Phone: [facility] Work Phone: 01-13-2021 22:34-0400 Respiratory rate 17 /min Tita Palma MD Work Phone: [facility] Work Phone: 01-13-2021 22:34-0400 Systolic blood pressure 134 mm[Hg] Tita Palma MD Work Phone: [facility] Work Phone: 01-13-2021 19:33-0400 Body temperature 98.01 [degF] Tita Palma MD Work Phone: [facility] Work Phone: 01-13-2021 19:33-0400 Body weight 79.38 kg Tita Palma MD Work Phone: [facility] Work Phone: 01-13-2021 19:33-0400 SaO2% (BldA) [Mass fraction] 99 % Tita Palma MD Work Phone: [facility] Work Phone: Encounters Encounter Date Encounter Type Care Provider Facility Start: 12-21-2023 End: 12-23-2023 ambulatory UNKNOWN PROVIDER Facility:[facility] Start: 12-21-2023 End: 12-23-2023 Patient encounter procedure Elba Elkins DDS Work Phone: [facility] Start: 12-14-2023 End: 12-16-2023 Patient encounter procedure Maribel Connors DDS Work Phone: [facility] Start: 12-14-2023 End: 12-16-2023 ambulatory UNKNOWN PROVIDER Facility:[facility] Start: 11-18-2023 End: 11-18-2023 ambulatory CHRIS A FELTER Not Available Start: 10-22-2023 End: 10-22-2023 ambulatory UNKNOWN PROVIDER Facility:[facility] Start: 10-01-2023 End: 10-01-2023 ambulatory CHRIS FELTER Not Available Start: 09-15-2023 End: 09-16-2023 ambulatory UNKNOWN PROVIDER Facility:[facility] Start: 09-10-2023 End: 09-10-2023 ambulatory [facility] Start: 07-30-2023 End: 07-30-2023 ambulatory [facility] Start: 06-29-2023 End: 06-29-2023 ambulatory CHRIS A FELTER Not Available Start: 06-16-2023 End: 06-16-2023 ambulatory Samra Wick Other [facility] Other Start: 06-16-2023 Office outpatient vi sit 15 minutes Samra Wick [facility] Start: 05-23-2023 Letter encounter Marisol gross Start: 01-05-2023 End: 01-05-2023 ambulatory [facility] Start: 12-09-2022 End: 12-09-2022 ambulatory [facility] Start: 10-30-2022 End: 10-30-2022 [facility] Start: 10-12-2022 End: 10-13-[address] ROMAIN CAN Facility:[facility] Start: 09-20-2022 End: 09-20-2022 ambulatory Siobhan Luigi Other [facility] Other Start: 09-20-2022 Office outpatient vi sit 15 minutes Siobhan Luigi [facility] Start: 06-30-2022 End: 06-30-2022 ambulatory Cassandra Dumont Other [facility] Other Start: 06-30-2022 Office outpatient vi sit 25 minutes Cassandra Dumont [facility] Start: 12-18-2021 End: 12-18-2021 ambulatory Siobhan Luigi Other [facility] Other Start: 12-18-2021 Office outpatient vi sit 25 minutes Siobhan Luigi [facility] Start: 07-30-2021 End: 10-29-2021 Patient encounter procedure MORALES ANGULO [facility] Start: 01-13-2021 End: 01-14-2021 Emergency department patient visit [facility] Start: 01-13-2021 End: 01-13-2021 Emergency department patient visit Tita Palma MD Work Phone: [facility] ED Comment on above: Chest pain, [...] DTaP/Tdap/Td vaccine (2 - Td or Tdap) [facility] [employer] Work Phone: Start: 07-16-2030 Tetanus vaccination Tetanus (Td or Tdap) Booster [facility] Start: 11-28-2028 Cholesterol [Mass/volume] in Serum or Plasma Cholesterol [facility] Start: 11-10-2026 Screening for malignant neoplasm of colon Cologuard (Stool DNA) [facility] Start: 06-06-2024 End: 06-06-2024 Patient encounter procedure 06/06/2024 10:40 AM EST Procedure Visit [address] [address] Pasquale Rosa DDS [address] [place] [address] [facility] Start: 02-25-2024 End: 02-25-2024 Patient encounter procedure 02/25/2024 11:00 AM EDT Procedure Visit [facility] [address] [place] [id number] Pasquale Rosa DDS [address] [place] [address] [facility] Start: 02-18-2024 End: 02-18-2024 Patient encounter procedure 02/18/2024 10:00 AM EDT Procedure Visit [facility] [address] [place] [address] Emory Devlin Syd [address] [place] [address] [facility] Start: 12-21-2023 End: 12-21-2023 Patient encounter procedure 12/21/2023 11:00 AM EDT Procedure Visit [facility] [address] [place] [address] Emory Devlin Syd [address] [place] [address] [facility] Start: 11-12-2023 Screening for malignant neoplasm of colon CRC Screening [facility] Start: 09-15-2023 End: 09-15-2023 Patient encounter procedure 09/15/2023 10:50 AM EST Procedure Visit [facility] [address] [place] [id number] Pasquale Rosa, [facility] [address] [place] [address] [facility] Start: 2023 Hepatitis B (HBV) Vaccine (optional start 60+ years) Hepatitis B (HBV) Vaccine (optional start 60+ years) [facility] Start: 2023 RSV vaccine (optional 60+ years) RSV vaccine (optional 60+ years) [facility] Start: 03-26-2023 COVID-19 Vaccine ( season) COVID-19 Vaccine ( season) [facility] Start: 03-26-2023 Influenza vaccination Influenza Vaccine (#1) [facility] Start: 03-26-2021 Influenza vaccination Flu vaccine (Season Ended) [employer] Phone: Start: 2013 Screening for malignant neoplasm of breast Breast cancer screen [employer] Phone: Start: 2013 Screening for malignant neoplasm of colon Colon cancer screen colonoscopy [employer] Phone: Start: 2013 Shingles (RZV) Vaccine (1 of 2) Shingles (RZV) Vaccine (1 of 2) [facility] Start: 2013 Shingles Vaccine (1 of 2) Shingles Vaccine (1 of 2) [employer] Phone: Start: 2008 Cholesterol [Mass/volume] in Serum or Plasma [facility]olesterol [facility] Start: 2008 Screening for malignant neoplasm of colon [facility] Start: 2003 Lipid panel Lipid screen [employer] Phone: Start: 2003 Screening for malignant neoplasm [...] + acellular pertussis vaccine (product) Tdap [facility] Start: 1978 HIV screening [facility] Start: 1975 COVID-19 Vaccine (1) COVID-19 Vaccine (1) [employer] Phone: Start: 1963 COVID-19 Vaccine (#1) COVID-19 Vaccine (#1) [facility] Start: 1963 Hepatitis C screening Hepatitis C screen [employer] Phone: Start: 1963 Screening for malignant neoplasm of colon [facility] EKG 12 Lead EKG 12 Lead ECG Routine 01/13/2021 7:37 PM EDT [employer] Phone: Immunizations Immunization Date Immunization Notes Care Provider Jose De Jesus borden 05-26-2021 influenza, injectabl e, quadrivalent, preservative free Maribel Waylon DDS Work Phone: [facility] 07-16-2020 tetanus toxoid, redu lima diphtheria toxoid, and acellular pertussis vaccine, adsorbed Maribel Waylon DDS Work Phone: [facility] Payers Date Payer Category Payer Unknown SP/UNINSURED [facility] FIN[employer]CIAL [employer] EVALUATION 2023-Present Other [id number] 2020 Medicaid [id number] 1963 Unknown [id number] 1963 Unknown [id number] 1963 Unknown [id number] 1963 Unknown [id number] 1963 Unknown [id number] 1963 Unknown [id number] 1963 Unknown [id number] 1963 Unknown [id number] 1963 Unknown [id number] 1959 Medicaid [id number] Social History Date Type Detail Facility Start: 01-13-2021 Tobacco smoking stat [facility] Never smoker [employer] Phone: Start: 01-13-2021 Tobacco use and exposure Never used [facility] Start: 01-13-2021 Alcohol intake Lifetime non-d melchor (finding) [employer] Phone: Start: 01-13-2021 History SDOH Alcohol Frequency 1 [facility] Work Phone: Start: 01-13-2021 Alcohol Comment occasional [employer] Work Phone: Start: 1965 Sex Assigned At Not on file [facility] [employer] Phone: Exposure to SARS-CoV -2 (event) Not sure [facility]01 Sex Assigned At Female [facility] Tobacco smoking stat [facility] Tobacco smoking consumption unknown [facility] Clinical Notes 12-18-2021 to 12-21-2023 Elba Elkins, [facility] - 12/21/2023 11:02 AM EDTGMaribel grayson [facility] - 12/14/2023 11:08 AM EDT Note Date & Type Note Facility 12-21-2023 History of Present illness Narrative ----- Thursday, December 21, 2023 at 11:49:45 AM ----- ----- Provider: Nicky Elkins, -- Clinic: [place] ----- COMPOSITE ZOROASTRIAN Patient is scheduled for Rastafari on tooth #9 surface F5. Reviewed Medical History. Pt exhibited the following conditions: No significant medical history Patient is ready for treatment. Topical Benzocaine gel applied at the injection site for 2 minutes. Administered 1 carpules of Lidocaine, 2% with Epinephrine 1:100,000,. isolation achieved. Decay/existing uatsdin removed, cavity prepared. Selectively etched enamel with 37% phosphoric acid, rinsed, and blot dried. OptiBond hills applied and light-cured. Condensed packable composite shade A3 in light cured increments using Retraction cord with hemostatic gel Finished with finishing burs, checked occlusion, verified proximal contacts and uatsdin was polished. Rinsed and suctioned intraorally, advised patient to not eat until local anesthesia wears off. POST OPERATIVE Periapical (single) RADIOGRAPH TAKEN. Next Visit: Restorative ----- Signed on Thursday, December 21, 2023 at 3:48:00 PM ----- ----- Provider: [id number] - Chelsea Sun DDS -- Clinic: [place] ----- documented in this encounter [facility] 12-14-2023 History of Present illness Narrative ----- Thursday, December 14, 2023 at 12:33:43 PM ----- ----- Provider: [id number] Resident Avi -- Clinic: [place] ----- COMPOSITE ZOROASTRIAN Patient is scheduled for Rastafari on tooth #18 surface DO. Reviewed Medical History. Pt exhibited the following conditions: No significant medical history Patient is ready for treatment. Topical Benzocaine gel applied at the injection site for 2 minutes. Administered 1 carpules of Lidocaine, 2% with Epinephrine 1:100,000,. Cotton roll isolation achieved. Decay/existing uatsdin removed, cavity prepared. Selectively etched enamel with 37% phosphoric acid, rinsed, and blot dried. Xeno IV hills applied and light-cured. Condensed packable composite shade A2 in light cured increments using [employer]. Finished with finishing burs, checked occlusion, verified proximal contacts and uatsdin was polished. Rinsed and suctioned intraorally, advised patient to not eat until local anesthesia wears off. POST OPERATIVE Periapical (single) RADIOGRAPH TAKEN. Next Visit: Bret ----- Signed on Thursday, December 14, 2023 at 2:29:42 PM ----- ----- Provider: [id number] - Pasquale Martin DDS -- Clinic: [place] ----- documented in this encounter [facility] 09-10-2023 Note Patient here for fol low up 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 Still gets intermittent skips . Denies chest pain, SOB, and lightheadedness/syncope. Review of Systems Cardiovascular: Positive for irregular heartbeat and palpitations. All other systems reviewed and are negative. [facility] 09-10-2023 Note Cardiovascular Medic ine [facility] SUBJECTIVE Sandro Severino is a 58 [...] Left lower l (more content not included)... [facility] 07-30-2023 Note Cardiovascular Medic [facility] SUBJECTIVE Sandro Severino is a 58 [...] Behavior: Behavior anna (more content not included)... [facility] 07-30-2023 Note Review of Systems Cardiovascular: Positive for palpitations. Palpitaions every now and then pt feels well Pt also started januvia and cymbolta [facility] 06-16-2023 Evaluation note Encounter Date Diagnosis [...] no improvement in 2 to 3 days [facility] Other 06-13-2023 NotePatient here for 1 mo [...] headaches. All other systems reviewed and are negative.[facility] 01-05-2023 NoteCardiovascular Medicine [facility] SUBJECTIVE Chief Complaint Patient presents with [...] hgbA1c - 8.4 Testing/Pr (more content not included)...[facility] 12-25-[address]-17-2023 Note Cardiovascular Medicine [facility] SUBJECTIVE Chief Complaint Patient presents with [...] home. She c/o feeli (more content not included)...[facility] 12-09-2022 NotePatient is here today for a 1 month follow up. Review of Systems Constitutional: Positive for decreased appetite and weight loss. Musculoskeletal: Positive for arthritis and back pain. Neurological: Positive for dizziness, headaches and loss of balance. All other systems reviewed and are negative.[facility] 10-30-2022 NoteCardiology Clinic Note Chief Complaint: [...] a past medical history of Diabetes mellitus ([facility]). Surgical History She has a past surgical [...] as needed Pacheco Burns MD Interventional Cardiology [facility]04-07-2023 NoteReview of Systems Cardiovascular: Positive for chest pain. Neurological: Positive for headaches. All other systems reviewed and are negative.[facility] 10-12-2022 NoteCARDIAC STRESS TEST Requesting Physician: [...] seen. EKG portion is negative for ischemia.[id number]* Encounter Date Diagnosis Assessment Notes [...] care provider if no improvement of symptoms [facility] Other 12-06-2022 Evaluation note* Encounter Date Diagnosis [...] other viral communicable diseases (ICD-10 - Z20.828) [facility] Other 05-26-2022 Evaluation note* Encounter Date Diagnosis Assessment Notes Treatment Notes Treatment Clinical Notes November, Cough (ICD-10 - R05.9) November, COVID-19 (ICD-10 - U07.1) Today you tested positive for the COVID virus. This mean you need to follow all CDC quarantine guidelines [email or web address] It is important to rest, [...] UP AND WHEN TO SEEK EMERGENCY TREATMENT [facility] Other Evaluation + Plan note No data available for this section [facility] Chest pain, unspecified type- Primary Anxiety state Anxiety state, unspecified documented in this encounter [employer] Phone: History general Narrative - Reported* Type Description Date Medical History Anxiety Medical History HTN (hypertension) Surgical History ablasion uterine [facility] Other History general Narrative - Reported* Type Description Date Medical History Anxiety Medical History HTN (hypertension) Surgical History ablasion uterine Hospitalization History Kidney Infection 1994 Hospitalization History chest pain 2022 [facility] Other Hospital Discharge instructions* Attachments The following attachments cannot be sent through Care Everywhere. * Chest Pain (Monegasque) * Anxiety Disorder ([place]) [facility]: Hospital Discharge instructions No data available for this section [facility] Summary Purpose Family History No Family [...] DATE CREATED AUTHOR AUTHOR'S ORGANIZ ATION 02/11/2022 [facility] DATE CREATED AUTHOR AUTHOR'S ORGANIZ ATION 10/15/2022 [facility] DATE CREATED AUTHOR AUTHOR'S ORGANIZ ATION 09/12/2023 [facility] DATE CREATED AUTHOR AUTHOR'S ORGANIZ ATION 11/20/2023 [facility] DATE CREATED AUTHOR AUTHOR'S ORGANIZ ATION 12/27/2023 [facility] RECORDS PERTAINING TO PATIENTS WHO [...] BE BASED ON THE PRIMARY CLINICAL RECORDS. [employer] provides no warranty or guarantee of the accuracy or completeness of information in this document.
[2024-03-03 11:17] LABS: Estimated Average Glucose 223 mg/dL; Glycohemoglobin A1C 9.4 % (4.5-6.2)
[2024-03-03 12:52] LABS: Chol HDL Ratio 3.7; Cholesterol 191 mg/dL (<=200); HDL Cholesterol 52 mg/dL (40-60); Triglycerides 145 mg/dL (<=150)
[2024-03-03 15:17] LABS: Alanine Aminotransferase 212 U/L (14-59); Albumin Globulin Ratio 0.9; Albumin Level 3.4 g/dL (3.4-5.0); Alkaline Phosphatase 220 U/L (46-116); Anion Gap 14.2; Aspartate Amino Transferase 76 U/L (15-37); BUN Creatinine Ratio 15.9; Bilirubin Total 0.5 mg/dL (0.2-1.0); Calcium 9.3 mg/dL (8.5-10.1); Carbon Dioxide 27.4 mmol/L (21.0-32.0); Chloride 100 mmol/L (98-107); Estimated GFR (African America >60 (>=60); Estimated GFR (Non-African Ame >60 (>=60); Glucose 261 mg/dL (74-106); Potassium 4.6 mmol/L (3.5-5.1); Sodium 137 mmol/L (136-145); Total Protein 7.4 g/dL (6.4-8.2)
== END 2024-03-03 10:34 | disposition home or self-care (01) ==
LOC: LAB 10:34
PROVIDERS: PCP Nurse Practitioner; Visit Provider Nurse Practitioner
DX: E11.9 Type 2 diabetes mellitus without complications (principal)
CPT/HCPCS: 36415; 80053; 80061; 83036

== ENCOUNTER 2024-03-03 10:35 | Outpatient (OUT) | payer OTHER, SELFPAY ==
--- NOTE | 2024-03-03 | ECG_ITS ---
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
[2024-03-03 11:25] LABS: Basophils Absolute Auto 0.1 10^3/uL (0.0-0.1); Basophils Percent Auto 1.1 % (0.2-2.0); Eosinophils Absolute Auto 0.2 10^3/uL (0.0-0.7); Eosinophils Percent Auto 3.2 % (0.9-7.0); Hematocrit 44.8 % (36.0-48.0); Hemoglobin 14.7 g/dL (12.0-16.0); Immature Granulocytes Abs Auto 0.09 10^3/uL (0.00-0.03); Immature Granulocytes Pct Auto 1.4 % (0.0-0.5); Lymphocytes Absolute Auto 1.6 10^3/uL (1.2-3.8); Lymphocytes Percent Auto 23.9 % (20.5-60.0); Mean Corpuscular HGB Conc 32.8 g/dL (29.9-35.2); Mean Corpuscular Hemoglobin 30.1 pg (26.7-34.0); Mean Corpuscular Volume 91.8 fL (81.0-99.0); Mean Platelet Volume 10.8 fL (9.5-13.5); Monocytes Absolute Auto 0.6 10^3/uL (0.3-0.8); Monocytes Percent Auto 9.2 % (1.7-12.0); Neutrophils Percent Auto 61.2 % (43.0-75.0); Platelet Count 296 10^3/uL (150-450); Red Blood Count 4.88 10^6/uL (4.20-5.40); Red Cell Distribution Width 12.6 % (11.0-15.0); White Blood Count 6.6 10^3/uL (4.0-11.0)
== END 2024-03-03 10:36 | disposition home or self-care (01) ==
LOC: LAB 10:38
PROVIDERS: PCP Nurse Practitioner
DX: Z01.810 Encounter for preprocedural cardiovascular examination (principal); E11.9 Type 2 diabetes mellitus without complications; Z01.812 Encounter for preprocedural laboratory examination
CPT/HCPCS: 36415; 80053; 80061; 83036; 85025; 93005

== ENCOUNTER 2024-04-25 11:44 | Outpatient (OUT) | payer OTHER, SELFPAY ==
--- OUTSIDE RECORDS SUMMARY | 2024-04-25 12:05 | XMS_ITS | CCD ---
Author Organization [facility] Care Team Providers Care Patcher Name Role Phone Unavailable Primary Care Provider Unavailabl e TITA EDWARDS Attending Unavailable KEV, MORALES ALIE Primary Care Physician Siobhan Meyers Unavailable Cassandra Dumont Unavailable DR ROMAIN CAN Consulting Unavailabl e ROSE MARIE ., FELIBERTO Attending Unavailable REQUEST, DR ESQUEDA LISTED Primary Care Unavaila ble ROSE MARIE ., FELIBERTO Admitting Unavailable DR MATTHEW WINN Consulting Unavailable TERESSA OLIVEROS Consulting Unavailable ROSE MARIE ., FELIBERTO Consulting Unavailable Unavailable Primary Care Provider Unavailabl e Samra Wick Unavailable CHRIS DHILLON Attending Unavailable CHRIS DHILLON Attending Unavailable PROVIDER, UNKNOWN Admitting Unavailable DELBERT GOLDEN Attending Unavaila ble PROVIDER, UNKNOWN Admitting Unavailable AMINA MAC Attending Unavailable PROVIDER, UNKNOWN Admitting Unavailable MARIBEL CONNORS Attending Unavailable PROVIDER, UNKNOWN Admitting Unavailable ELBA ELKINS Attending Unavailable PACHECO BURNS Attending Unavailable PACHECO BURNS Attending Unavailable PACHECO BURNS Attending Unavailable EMPERATRIZ CRANE Admitting Unavailable EMPERATRIZ CRANE Attending Unavailable MITCHELL TELLEZ Referring Unavailable KHORSAND KEV, MORALES Primary Care Unavailabl e MITCHELL TELLEZ Referring Unavailable KHORSAND KEV, MORALES Primary Care Unavailabl MITCHELL Coto Attending Unavailable MITCHELL TELLEZ Referring Unavailable KHORSAND KEV, MORALES Primary Care Unavailabl e Medications Current Medications Medication Drug Class(es) Dates Sig (Normalized) Sig (Original) aspirin 81 mg delayed release oral tablet (1 source) Platelet Aggregation Inhibitor, Nonsteroidal Anti-inflammatory Drug Start: 04-19-2024 take 81 mg by mouth once daily Aspirin Active 81 MG PO Daily April 19, 2024 12:00am carvedilol 12.5 mg oral tablet (2 sources) alpha-Adrenergic Ann, beta-Adrenergic Ann Start: 04-19-2024 take 12.5 mg by mouth twice daily at mealtime Carvedilol Active 12.5 MG PO Twice daily April 19, 2024 12:00am must administer with a meal/food Carvedilol Activ e ciclopirox (1 source) Start: 04-19-2024 Ciclopirox Active 1 APPLIC TOPICAL Daily at bedtime 6.6 28 April 19, 2024 12:00am DULoxetine 60 mg delayed release oral capsule (1 source) Serotonin and Norepinephrine Reuptake Inhibitor Start: 04-19-2024 take 60 mg by mouth once daily Duloxetine Active 60 MG PO Daily April 19, 2024 12:00am escitalopram 10 mg oral tablet (1 source) Serotonin Reuptake Inhibitor Escitalopram Oxalate 10 MG Oral for 90 Active hydroCHLOROthiazide 12.5 mg / losartan potassium 50 mg oral tablet (1 source) Thiazide Diuretic, Angiotensin 2 Receptor Ann take 1 tablet by mouth every twenty-fo ur hours Losartan Potassium-HCTZ 50-12.5 MG 1 tablet Orally Once a day Active Hydrochlorothiazide-12. 5 mg 12.5 mg (2 sources) take 1 tablet by mouth once daily Hydrochlorothiazide-1 2.5 mg 12.5 mg 1 tablet Orally Once a day Active hydrocortisone 10 mg/ml / neomycin 3.5 mg/ml / polymyxin b 77851 unt/ml otic solution (1 source) Aminoglycoside Antibacterial, Polymyxin-class Antibacterial, Corticosteroid Start: 09-20-2022 Aarugbvi-Bzopxigqi-RP 3.5-84310-7 4 drops into affected ear Otic Three times a day for 7 day(s) Aug, Active hydrOXYzine (1 source) Antihistamine hydrOXYzine HCl Active levothyroxine sodium 0.075 mg oral capsule (1 source) l-Thyroxine Start: 04-19-2024 take 75 ug by mouth once daily Levothyroxine Active 75 MCG PO Daily April 19, 2024 12:00am Losartan (1 source) Angiotensin 2 Receptor Ann Losartan Potassium Active metFORMIN hydrochloride 500 mg oral tablet (1 source) Biguanide Start: 04-19-2024 take 500 mg by mouth once daily Metformin Active 500 MG PO Daily April 19, 2024 12:00am methylPREDNISolone 4 mg oral tablet (1 source) Corticosteroid Start: 09-20-2022 methylPREDNISolone 4 MG as directed Orally Once a day for 6 days Aug, Active omeprazole 20 mg delayed release oral capsule (1 source) Proton Pump Inhibitor Start: 04-19-2024 take 20 mg by mouth once daily Omeprazole Active 20 MG PO Daily April 19, 2024 12:00am ondansetron 4 mg oral tablet (2 sources) Serotonin-3 Receptor Antagonist Start: 06-30-2022 take 1 tablet by mouth every eight [...] needed for 4 days November, Active SITagliptin 100 mg oral tablet (2 sources) Dipeptidyl Peptidase 4 Inhibitor Start: 04-19-2024 take 1 tablet by mouth once daily Sitagliptin Phosphate (Januvia) 100 mg tablet Active 100 MG PO Daily April 19, 2024 12:00am Januvia Active Completed/Discontinued Medications Medication Drug Class(es) Dates Sig (Normalized) Sig (Original) iopamidol (ISOVUE-370) 76 % injection 100 mL (1 source) Start: 01-13-2021 End: 01-13-2021 iopamidol (ISOVUE-370) 76 % injection 100 mL Problems Active Problems Problem Classification Problem Date Documented Da te Episodic/Chronic Anxiety disorders (3 sources) Anxiety state; Translations: [Generalized anxiety disorder] Chronic Diabetes mellitus with complications (1 source) Type 2 diabetes mellitus with hyperglycemia; Translations: [TYPE 2 DM W/HYPERGLYCEMIA] Onset: 10-15-2022 Chronic Diabetes mellitus without complication (2 sources) Diabetes mellitus; Translations: [Type 2 diabetes mellitus without complications] 04-19-2024 Chronic Disorders of lipid metabolism (1 source) Hyperlipidemia, unspecified; Translations: [HYPERLIPIDEMIA UNSPECIFIED] Onset: 10-15-2022 Chronic Essential hypertension (3 sources) Essential (primary) hypertension; Translations: [Hypertensive disorder] Onset: 10-15-2022 04-19-2024 Chronic Immunizations and screening for infectious disease (5 sources) Suspected clinical finding; Translations: [Contact with and (suspected) exposure to other viral communicable diseases] Episodic Mycoses (2 sources) Onychomycosis; Translations: [Tinea unguium] 04-19-2024 Episodic Nausea and vomiting (1 source) Nausea Episodic Nonspecific chest pain (5 sources) Chest pain; Translations: [Chest pain, unspecified] Onset: 10-12-2022 Episodic Other aftercare (1 source) Other care home (current) drug therapy; Translations: [OTH SNF CURRENT DRUG THERAPY] Onset: 10-15-2022 Episodic Other connective tissue disease (1 source) Impingement syndrome of left shoulder; Translations: [Impingement syndrome of left shoulder] Onset: 04-04-2024 Episodic Other connective tissue disease (1 source) Foot pain; Translations: [Pain in right foot] 04-19-2024 Episodic Other connective tissue disease (1 source) Pain in right foot; Translations: [Pain in limb] 04-19-2024 Episodic Other ear and sense organ disorders (1 source) Other infective otitis externa, bilateral Episodic Other ear and sense organ disorders (1 source) Impacted cerumen, left ear Episodic Other inflammatory condition of skin (1 source) Psoriasis; Translations: [Psoriasis, unspecified] 04-19-2024 Chronic Other inflammatory condition of skin (1 source) Psoriasis, unspecified; Translations: [Other psoriasis] 04-19-2024 Chronic Other liver diseases (1 source) Abnormal levels of other serum enzymes; Translations: [ABNORMAL LEVELS OTHER SERUM ENZYMES] Onset: 10-15-2022 Episodic Other lower respiratory disease (4 sources) Cough; Translations: [Cough] Episodic Other screening for suspected conditions (not mental disorders or infectious disease) (1 source) Encounter for screening for malignant neoplasm of colon; Translations: [Encounter for screening for malignant neoplasm of colon] Onset: 03-31-2024 Episodic Other upper respiratory infections (4 sources) Acute upper respiratory infection, unspecified; Translations: [Acute laryngitis] Episodic Sprains and strains (1 source) Strain of other muscles, fascia and tendons at shoulder and upper arm level, left arm, initial encounter; Translations: [Strain of other muscles, fascia and tendons at shoulder and upper arm level, left arm, initial encounter] Onset: 04-04-2024 Episodic Substance-related disorders (1 source) Nicotine dependence, [...] Test Name Value Interpretation Reference Range Facility MR SHOULDER LT WO CONTon MR SHOULDER LT WO CONT MR SHOULDER LT WO CONT MR SHOULDER LT WO CONT INDICATION: Left shoulder pain, limited range of motion for two months COMPARISON: None. TECHNIQUE: Multiplanar, multisequence MR images of the shoulder were obtained without intravenous or intra-articular contrast. FINDINGS: Biceps Tendon: No tear or significant tendinosis. Small to moderate volume tendon sheath fluid. Subscapularis: Mild tendinosis without tear. Supraspinatus: Mild tendinosis without significant air. Infraspinatus: Intact. Teres minor: Intact. Bursa: Small-volume fluid within the subcoracoid bursa. Osseous: No fracture or osteochondral lesion. Acromioclavicular Joint: Moderate acromioclavicular joint degenerative changes. Type 1 acromion. Glenohumeral Joint: No malalignment or dislocation. Small-volume joint fluid. Cartilage: No focal defects. Labrum: Superior labral degeneration, no displaced labral tear, cystic changes of the posterior glenoid without definitive paralabral cyst. Ligaments: Inferior glenohumeral ligament thickening. Muscles: Normal in signal and morphology. Soft Tissues: Normal. IMPRESSION: * Superior labral degeneration without visible paralabral cyst. Nondisplaced fracture. * No rotator cuff tear. * Inferior glenohumeral ligament thickening may suggest adhesive capsulitis. Approved by Resident: Pablo Henao MD on 04/05/2024 2:21 PM Bill Lucero MD have personally reviewed the image(s) and agree with and/or edited the report Finalized by Bill Ma MD on 04/06/2024 4:12 PM Normal [facility] Glucose, Whole Bloodon 03-31 Glucose [Mass/Vol] 212 mg/dL High 74-100 [facility] Surgical Pathology Reporton 03-31-2024 Surgical Pathology Report (NOTE) Path Number: [id number] -- Diagnosis -- A. SIGMOID COLON POLYP, BIOPSY: Unremarkable colonic mucosa with benign lymphoid aggregate. B. RECTAL POLYP, BIOPSY: Hyperplastic polyp. Karime Chacon M.D. Electronically Signed Out kmg2/04/04/2024 Clinical Information Pre-op Diagnosis: SCREENING FOR COLON CANCER Operative Findings: SIGMOID COLON POLYP; RECTAL POLYP Operation Performed: COLONOSCOPY, POLYPECTOMY SNARE/BIOPSY tm Source of Specimen A: SIGMOID COLON POLYP B: RECTAL POLYP Gross Description A. DAYANA SEVERINO, SIGMOID COLON POLYP Received in formalin is one soft pink-mckeon fragment 0.6 x 0.4 x 0.3 cm. Entirely 1cs. B. DAYANA SEVERINO, RECTAL POLYP Received in formalin is one soft pink-mckeon fragment 0.5 x 0.3 x 0.3 cm. Entirely 1cs. kelly kb Lester Lewis/tb1:04/04/2024 Microscopic Description A, B. Microscopic examination performed. Processing Lab: [address] [id number] Interpretation Performed at [address] [id number] SURGICAL PATHOLOGY CONSULTATION Patient Name: DAYAAN SEVERINO [facility] Rec: [id number] [facility] ANATOMIC PATHOLOGY [facility]. [place] [id number] Normal [facility] Office Visiton 03-15-2024 Follow-up visit [id number] MaycolDayana Pollock 1965 F Date Provider Department Center 03/15/2024 [facility]PACHECO BURNS [facility] Family History Problem Relation Age of Onset No Known Problems Mother No Known Problems Father No Known Problems Sister No Known Problems Brother Family Status - Relation Status Age at Mother Father Sister Brother Level of Service:44782 [place] OFFICE/OUTPATIENT ESTABLISHED LOW MDM 20 MIN Normal [facility] Progress Noteson 12-21-2023 Shop Clerk Authentication Interface Message Text ----- Thursday, December 21, 2023 at 11:49:45 AM ----- ----- Provider: [id number] Resident French -- Clinic: [place] ----- COMPOSITE ROMAN CATHOLIC Patient is scheduled for Adventism on tooth #9 surface F5. Reviewed Medical History. Pt exhibited the following conditions: No significant medical history Patient is ready for treatment. Topical Benzocaine gel applied at the injection site for 2 minutes. Administered 1 carpules of Lidocaine, 2% with Epinephrine 1:100,000,. isolation achieved. Decay/existing buddhist removed, cavity prepared. Selectively etched enamel with 37% phosphoric acid, rinsed, and blot dried. OptiBond hills applied and light-cured. Condensed packable composite shade A3 in light cured increments using Retraction cord with hemostatic gel Finished with finishing burs, checked occlusion, verified proximal contacts and buddhist was polished. Rinsed and suctioned intraorally, advised patient to not eat until local anesthesia wears off. POST OPERATIVE Periapical (single) RADIOGRAPH TAKEN. Next Visit: Restorative ----- Signed on Thursday, December 21, 2023 at 3:48:00 PM ----- ----- Provider: [id number] Geovanny Sun DDS -- Clinic: [place] ----- Normal [facility] Progress Noteson 12-14-2023 Shop Clerk Authentication Interface Message Text ----- Thursday, December 14, 2023 at 12:33:43 PM ----- ----- Provider: [id number] Resident Avi -- Clinic: [place] ----- COMPOSITE ROMAN CATHOLIC Patient is scheduled for Adventism on tooth #18 surface DO. Reviewed Medical History. Pt exhibited the following conditions: No significant medical history Patient is ready for treatment. Topical Benzocaine gel applied at the injection site for 2 minutes. Administered 1 carpules of Lidocaine, 2% with Epinephrine 1:100,000,. Cotton roll isolation achieved. Decay/existing buddhist removed, cavity prepared. Selectively etched enamel with 37% phosphoric acid, rinsed, and blot dried. Xeno IV hills applied and light-cured. Condensed packable composite shade A2 in light cured increments using Automatrix. Finished with finishing burs, checked occlusion, verified proximal contacts and buddhist was polished. Rinsed and suctioned intraorally, advised patient to not eat until local anesthesia wears off. POST OPERATIVE Periapical (single) RADIOGRAPH TAKEN. Next Visit: Mercedes ----- Signed on Thursday, December 14, 2023 at 2:29:42 PM ----- ----- Provider: [id number] - Pasquale Martin DDS -- Clinic: [place] ----- Normal [facility] Progress Noteson 10-22-2023 Shop Clerk Authentication Interface Message Text ----- Sunday, October 22, 2023 at 12:00:23 PM ----- ----- Provider: [id number] - Amina Mac, Hygienist -- Clinic: [place] ----- [facility], Pt is ready for tx. Pt is [...] 6 month recall. Examination completed 09/15/2023 NV: MERCEDES see chart RECALL/ 6months. Amina Gann RDH Normal [facility] Progress Noteson 09-15-2023 Shop Clerk Authentication Interface Message Text ----- Friday, September 15, 2023 at 11:18:51 AM ----- ----- Provider: [id number] - Delbert Bejarano, -- Clinic: [place] ----- INITIAL/COMPREHENSIV E EXAM [...] treatment plan. PRIOR: Not needed Next Visit: Prophy ----- Signed on Friday, September 15, 2023 at 11:23:03 AM ----- ----- Provider: Mark Martin DDS -- Clinic: [place] ----- Normal [facility] Office Visiton 09-10-2023 Follow-up visit [id number] Dayana Severino 1965 [facility] Provider Department Center 09/10/2023 PACHECO GUILLORY Family History Problem Relation Age of Onset No Known Problems Mother No Known Problems Father No Known Problems Sister No Known Problems Brother Family Status - Relation Status Age at Mother Father Sister Brother Level of Service:82940 [place] OFFICE/OUTPATIENT ESTABLISHED LOW MDM 20 MIN Normal [facility] Office Visiton 07-30-2023 Follow-up visit [id number] Dayana Severino 1965 Provider Department Center 07/30/2023 PACHECO GUILLORY No family history on file Level of Service:90643 [place] OFFICE/OUTPATIENT ESTABLISHED LOW MDM 20 MIN Normal [facility] COVID/FLU RT-PCRon 3 SARS-CoV-2 (COVID-19) RNA RIDGE+probe Ql (Unsp spec) Negative 3D Data Other COVID/FLU RT-PCR Negative [place] [facility] Other CBC AUTO DIFFon 10-13-2022 BASO # 0.1 103/ul Normal 0.0-0.1 [facility] Comment on above: Performed By: #### P OCGLUC #### [facility] [address] [address] [address] Gibson Jin Basophils/100 WBC (Bld) 1.0 % Normal 0.2-2.0 [facility] Comment on above: Performed By: #### P OCGLUC #### [facility] [address] [place] [address] Dr. Gibson Jin EO # 0.2 103/ul Normal 0.0-0.7 [facility] Comment on above: Performed By: #### P OCGLUC #### [facility] [address] [place] [address] Dr. Gibson Jin Eosinophils/100 WBC (Bld) 3.9 % Normal 0.9-7.0 [facility] Comment on above: Performed By: #### P OCGLUC #### [facility] [address] [place] [address] Dr. Gibson Jin Erythrocyte distribution width (RBC) [Ratio] 12.4 % Normal 11.0-15.0 [facility] Comment on above: Performed By: #### P OCGLUC #### [facility] [address] [place] [address] Dr. Gibson Jin Hematocrit (Bld) [Volume fraction] 43.4 % Normal 36.0-48.0 [facility] Comment on above: Performed By: #### P OCGLUC #### [facility] [address] [place] [address] Dr. Gibson Jin Hemoglobin (Bld) [Mass/Vol] 14.7 g/dL Normal 12.0-16.0 [facility] Comment on above: Performed By: #### P OCGLUC #### [facility] [address] [place] [address] Dr. Gibson Jin IG # 0.09 10e3/ul Critically high 0.00-0.03 [facility] Comment on above: Performed By: #### P OCGLUC #### [facility] [address] [place] [address] Dr. Gibson Jin IG % 1.5 % Critically high 0.0-0.5 [facility] Comment on above: Performed By: #### P OCGLUC #### [facility] [address] [place] [address] Dr. Gibson Jin LYMPH # 1.2 103/ul Normal 1.2-3.8 [facility] Comment on above: Performed By: #### P OCGLUC #### [facility] [address] [place] [address] Dr. Gibson Jin Lymphocytes/100 WBC (Bld) 19.4 % Critically low 20.5-60.0 [facility] Comment on above: Performed By: #### P OCGLUC #### [facility] [address] [place] [address] Dr. Gibson Jin MANUAL DIFF REQ NO Normal [facility] Comment on above: Performed By: #### P OCGLUC #### [facility] [address] [place] [address] Dr. Gibson Jin MCH (RBC) [Entitic mass] 30.2 pg Normal 26.7-34.0 [facility] Comment on above: Performed By: #### P OCGLUC #### [facility] [address] [place] [address] Dr. Gibson Jin MCHC (RBC) [Mass/Vol] 33.9 g/dL Normal 29.9-35.2 [facility] Comment on above: Performed By: #### P OCGLUC #### [facility] [address] [place] [address] Dr. Gibson Jin MCV (RBC) [Entitic vol] 89.1 fL Normal 81.0-99.0 [facility] Comment on above: Performed By: #### P OCGLUC #### [facility] [address] [place] [address] Dr. Gibson Jni MONO # 0.4 103/ul Normal 0.3-0.8 [facility] Comment on above: Performed By: #### P OCGLUC #### [facility] [address] [place] [address] Dr. Gibson Jin Monocytes/100 WBC (Bld) 6.9 % Normal 1.7-12.0 [facility] Comment on above: Performed By: #### P OCGLUC #### [facility] [address] [place] [address] Dr. Gibson Jin NEUT # 4.1 103/ul Normal 1.4-6.5 [facility] Comment on above: Performed By: #### P OCGLUC #### [facility] [address] [place] [address] Dr. Gibson Jin Neutrophils/100 WBC (Bld) 67.3 % Normal 43.0-75.0 [facility] Comment on above: Performed By: #### P OCGLUC #### [facility] [address] [place] [address] Dr. Gibson Jin Platelet mean volume (Bld) [Entitic vol] 10.3 fL Normal 9.5-13.5 [facility] Comment on above: Performed By: #### P OCGLUC #### [facility] [address] [place] [address] Dr. Gibson Jin PLT 273 103/ul Normal 150-450 [facility] Comment on above: Performed By: #### P OCGLUC #### [facility] [address] [place] [address] Dr. Gibson Jin RBC 4.87 106/ul Normal 4.20-5.40 [facility] Comment on above: Performed By: #### P OCGLUC #### [facility] [address] [place] [address] Dr. Gibson Jin WBC 6.1 103/ul Normal 4.0-11.0 [facility] Comment on above: Performed By: #### P OCGLUC #### [facility] [address] [place] [address] Dr. Gibson Jin ECHOCARDIO M/2D COMPLETEon 0 10-13-2022 ECHOCARDIO M/2D COMPLETE Patient: DAYANA SEVERINO Exam Date: 10/13/2022 : 1965 Gender:F Ordering : FELIBERTO TROTTER . Admission #: [id number] Family : Order #: [id number] CLICK HERE TO VIEW EXAM ECHOCARDIOGRAM REPORT [...] Mosquera M.D. on 10/13/2022 at 15:43 Normal [facility] GLYCOHEMOGLOBIN A1Con 2022 ADA RECOMMENDATION SEE BELOW Normal [facility] Comment on above: Result Comment: ADA RECOMMENDED LIMIT 4.0 - 6.0 ADA THERAPEUTIC TARGET < 7.0 ACTION SUGGESTED > 7.0 Performed By: #### A 1C #### [facility] [address] [place] [address] Dr. Gibson Jin Glucose [Mass/Vol] 197 mg/dL Normal [facility] Comment on above: Performed By: #### A 1C #### [facility] [address] [address] [address] Gibson Jin HbA1c (Bld) [Mass fraction] 8.5 % Critically high 4.5-6.2 [facility] Comment on above: Performed By: #### A 1C #### [facility] [address] [address] [address] Gibson Jin LIPID PROFILEon 10-13-2022 CHOL-HDL RATIO NORM SEE BELOW Normal [facility] Comment on above: Result Comment: 3.3 - 4.4 LOW RISK 4.4 - 7.1 AVERAGE RISK 7.1 - 11.0 MODERATE RISK >11.0 HIGH RISK Performed By: #### T SH, CMP, LIPID #### [facility] [address] [address] [address] Gibson Jin Cholesterol [Mass/Vol] 167 mg/dL Normal <=200 Th [facility] Comment on above: Performed By: #### T SH, CMP, LIPID #### [facility] [address] [address] [address] Gibson Jin Cholesterol in HDL [Mass/Vol] 45 mg/dL Normal 40-60 [facility] Comment on above: Performed By: #### T SH, CMP, LIPID #### [facility] [address] [address] [address] Gibson Jin Cholesterol in LDL [Mass/Vol] 93.4 mg/dL Normal [facility] Comment on above: Performed By: #### T SH, CMP, LIPID #### [facility] [address] [address] [address] Gibson Jin Cholesterol.total/Chol esterol in HDL [Mass ratio] 3.7 {ratio} Normal [facility] Comment on above: Performed By: #### T JENNIFER, CMP, LIPID #### [facility] [address] [address] [address] Gibson Jin HDL NORMAL > or = 60 mg/dl - LOW CARDIOVASCULAR RISK <40 mg/dl - HIGH CARDIOVASCULAR RISK Normal [facility] Comment on above: Performed By: #### T JENNIFER, CMP, LIPID #### [facility] [address] [address] [address] Gibson Jin LDL CALC NORMAL SEE BELOW Normal [facility] Comment on above: Result Comment: <100 mg/dl OPTIMAL 100 - 129 mg/dl NEAR OR ABOVE OPTIMAL 130 - 159 mg/dl BORDERLINE HIGH 160 - 189 mg/dl HIGH >190 mg/dl VERY HIGH Performed By: #### T JENNIFER, CMP, LIPID #### [facility] [address] [address] [address] Gibson Jin Triglyceride [Mass/Vol] 143 mg/dL Normal <=150 [facility] Comment on above: Performed By: #### T SH, CMP, LIPID #### [facility] [address] [place] [address] Dr. Gibson Jin VLDL CALC 28.6 mg/dL Normal [facility] Comment on above: Performed By: #### T SH, CMP, LIPID #### [facility] [address] [address] [address] Gibson Jin NM STRESS/REST MULTIon 10-13 NM STRESS/REST MULTI Patient: DAYANA SEVERINO Exam Date: 10/13/2022 : 1965 Gender:F Ordering : TERESSA OLIVEROS [facility] Admission #: [id number] Family : FELIBERTO TROTTER . Order #: [id number] CLICK HERE TO VIEW EXAM RADIOLOGY REPORT [...] nuclear medicine myocardial perfusion scan. Dictated by: Matthew Winn M.D. on 10/13/2022 at 14:58 Approved by: Matthew Winn M.D. on 10/13/2022 at 15:00 Normal [facility] POINT OF CARE GLUCOSEon 09-24 Glucose [Mass/Vol] 372 mg/dL Critically high 74-106 [facility] Comment on above: Performed By: #### P OCGLUC #### [facility] [address] [address] [address] Gibson Jin Glucose [Mass/Vol] 131 mg/dL Critically high 74-106 [facility] Comment on above: Performed By: #### P OCGLUC #### [facility] [address] [place] [address] Dr. Gibson Jin PROF 14(COMP METB)on 023 Albumin [Mass/Vol] 3.3 g/dL Critically low 3.4-5.0 [facility] Comment on above: Performed By: #### T SH, CMP, LIPID #### [facility] [address] [address] [address] Gibson Jin Albumin/Globulin [Mass ratio] 0.9 {ratio} Normal [facility] Comment on above: Performed By: #### T SH, CMP, LIPID #### [facility] [address] [place] [address] Dr. Gibson Jin ALP [Catalytic activity/Vol] 123 U/L Critically high 46-116 [facility] Comment on above: Performed By: #### T SH, CMP, LIPID #### [facility] [address] [place] [address] Dr. Gibson Jin ALT [Catalytic activity/Vol] 223 U/L Critically high 14-59 [facility] Comment on above: Performed By: #### T SH, CMP, LIPID #### [facility] [address] [place] [address] Dr. Gibson Jin Anion gap [Moles/Vol] 10.0 mmol/L Normal [facility] Comment on above: Performed By: #### T SH, CMP, LIPID #### [facility] [address] [place] [address] Dr. Gibson Jin AST [Catalytic activity/Vol] 113 U/L Critically high 15-37 [facility] Comment on above: Performed By: #### T SH, CMP, LIPID #### [facility] [address] [place] [address] Dr. Gibson Jin Bilirubin [Mass/Vol] 0.7 mg/dL Normal 0.2-1.0 [facility] Comment on above: Performed By: #### T SH, CMP, LIPID #### [facility] [address] [place] [address] Dr. Gibson Jin Calcium [Mass/Vol] 9.1 mg/dL Normal 8.5-10.1 [facility] Comment on above: Performed By: #### T SH, CMP, LIPID #### [facility] [address] [place] [address] Dr. Gibson Jin Chloride [Moles/Vol] 102 mmol/L Normal 98-107 [facility] Comment on above: Performed By: #### T SH, CMP, LIPID #### [facility] [address] [place] [address] Dr. Gibson Jin CO2 [Moles/Vol] 30.0 mmol/L Normal 21.0-32.0 [facility] Comment on above: Performed By: #### T SH, CMP, LIPID #### [facility] [address] [place] [address] Dr. Gibson Jin Creatinine [Mass/Vol] 0.73 mg/dL Normal 0.55-1.02 [facility] Comment on above: Performed By: #### T SH, CMP, LIPID #### [facility] [address] [place] [address] Dr. Gibson Jin EGFR-AF HUNGARIAN >60 Normal >=60 [facility] Comment on above: Performed By: #### T SH, CMP, LIPID #### [facility] [address] [place] [address] Dr. Gibson Jin EGFR-NON AF HUNGARIAN >60 Normal >=60 [facility] Comment on above: Performed By: #### T SH, CMP, LIPID #### [facility] [address] [place] [address] Dr. Gibson Jin Globulin (S) [Mass/Vol] 3.5 g/dL Normal [facility] Comment on above: Performed By: #### T SH, CMP, LIPID #### [facility] [address] [place] [address] Dr. Gibson Jin Glucose [Mass/Vol] 165 mg/dL Critically high 74-106 [facility] Comment on above: Performed By: #### T SH, CMP, LIPID #### [facility] [address] [place] [address] Dr. Gibson Jin Potassium [Moles/Vol] 4.0 mmol/L Normal 3.5-5.1 [facility] Comment on above: Performed By: #### T JENNIFER CMP, LIPID #### [facility] [address] [address] [address] Gibson Jin Protein [Mass/Vol] 6.8 g/dL Normal 6.4-8.2 [facility] Comment on above: Performed By: #### T JENNIFER CMP, LIPID #### [facility] [address] [address] [address] Gibson Jin Sodium [Moles/Vol] 138 mmol/L Normal 136-145 [facility] Comment on above: Performed By: #### T JENNIFER CMP, LIPID #### [facility] [address] [place] [address] Dr. Gibson Jin Urea nitrogen [Mass/Vol] 14.0 mg/dL Normal 7.0-18.0 [facility] Comment on above: Performed By: #### T JENNIFER CMP, LIPID #### [facility] [address] [place] [address] Dr. Gibson Jin Urea nitrogen/Creatinine [Mass ratio] 19.2 mg/mg Normal [facility] Comment on above: Performed By: #### T JENNIFER CMP, LIPID #### [facility] [address] [place] [address] Dr. Gibson Jin TSHon 10-13-2022 TSH 3.011 uIU/mL Normal 0.358-3.740 [facility] Comment on above: Performed By: #### T JENNIFER, CMP, LIPID #### [facility] [address] [place] [address] Dr. Gibson Jin US SINGLE QUAD RT [...] contribute to patient's symptoms. Electronically authenticated by: MATTHEW WINN Date: 2022-10-13 13:22 Normal [facility] CBC AUTO DIFFon 10-12-2022 BASO # 0.1 103/ul Normal 0.0-0.1 [facility] Comment on above: Performed By: #### C BC #### [facility] [address] [place] [address] Dr. Gibson Jin Basophils/100 WBC (Bld) 1.0 % Normal 0.2-2.0 [facility] Comment on above: Performed By: #### C BC #### [facility] [address] [place] [address] Dr. Gibson Jin EO # 0.2 103/ul Normal 0.0-0.7 [facility] Comment on above: Performed By: #### C BC #### [facility] [address] [place] [address] Dr. Gibson Jin Eosinophils/100 WBC (Bld) 2.2 % Normal 0.9-7.0 [facility] Comment on above: Performed By: #### C BC #### [facility] [address] [place] [address] Dr. Gibson Jin Erythrocyte distribution width (RBC) [Ratio] 12.1 % Normal 11.0-15.0 [facility] Comment on above: Performed By: #### C BC #### [facility] [address] [place] [address] Dr. Gibson Jin Hematocrit (Bld) [Volume fraction] 43.1 % Normal 36.0-48.0 [facility] Comment on above: Performed By: #### C BC #### [facility] [address] [place] [address] Dr. Gibson Jin Hemoglobin (Bld) [Mass/Vol] 15.1 g/dL Normal 12.0-16.0 [facility] Comment on above: Performed By: #### C BC #### [facility] [address] [place] [address] Dr. Gibson Jin IG # 0.06 10e3/ul Critically high 0.00-0.03 [facility] Comment on above: Performed By: #### C BC #### [facility] [address] [place] [address] Dr. Gibson Jin IG % 0.8 % Critically high 0.0-0.5 [facility] Comment on above: Performed By: #### C BC #### [facility] [address] [place] [address] Dr. Gibson Jin LYMPH # 1.5 103/ul Normal 1.2-3.8 [facility] Comment on above: Performed By: #### C BC #### [facility] [address] [place] [address] Dr. Gibson Jin Lymphocytes/100 WBC (Bld) 20.1 % Critically low 20.5-60.0 [facility] Comment on above: Performed By: #### C BC #### [facility] [address] [place] [address] Dr. Gibson Jin MANUAL DIFF REQ NO Normal [facility] Comment on above: Performed By: #### C BC #### [facility] [address] [place] [address] Dr. Gibson Jin MCH (RBC) [Entitic mass] 30.6 pg Normal 26.7-34.0 [facility] Comment on above: Performed By: #### C BC #### [facility] [address] [place] [address] Dr. Gibson Jin MCHC (RBC) [Mass/Vol] 35.0 g/dL Normal 29.9-35.2 [facility] Comment on above: Performed By: #### C BC #### [facility] [address] [place] [address] Dr. Gibson Jin MCV (RBC) [Entitic vol] 87.2 fL Normal 81.0-99.0 [facility] Comment on above: Performed By: #### C BC #### [facility] [address] [place] [address] Dr. Gibson Jin MONO # 0.5 103/ul Normal 0.3-0.8 [facility] Comment on above: Performed By: #### C BC #### [facility] [address] [place] [address] Dr. Gibson Jin Monocytes/100 WBC (Bld) 6.5 % Normal 1.7-12.0 [facility] Comment on above: Performed By: #### C BC #### [facility] [address] [place] [address] Dr. Gibson Jin NEUT # 5.0 103/ul Normal 1.4-6.5 [facility] Comment on above: Performed By: #### C BC #### [facility] [address] [place] [address] Dr. Gibson Jin Neutrophils/100 WBC (Bld) 69.4 % Normal 43.0-75.0 [facility] Comment on above: Performed By: #### C BC #### [facility] [address] [place] [address] Dr. Gibson Jin Platelet mean volume (Bld) [Entitic vol] 10.6 fL Normal 9.5-13.5 [facility] Comment on above: Performed By: #### C BC #### [facility] [address] [place] [address] Dr. Gibson Jin PLT 281 103/ul Normal 150-450 [facility] Comment on above: Performed By: #### C BC #### [facility] [address] [place] [address] Dr. Gibson Jin RBC 4.94 106/ul Normal 4.20-5.40 [facility] Comment on above: Performed By: #### C BC #### [facility] [address] [place] [address] Dr. Gibson Jin WBC 7.3 103/ul Normal 4.0-11.0 [facility] Comment on above: Performed By: #### C BC #### [facility] [address] [address] [address] Gibson Jin Covid-19 PCR ([facility])on 09-24 SARS-CoV-2 (COVID-19) RNA RIDGE+probe Ql (Unsp spec) Not detected Normal NOT DETECTED [facility] Comment on above: Result Comment: When diagnostic [...] for this test is supported by the Director Building of Health and Human Service's declaration that [...] By: #### P OCGLUC #### [facility] [address] [address] [address] Gibson Jin D-DIMERon 10-12-2022 D-DIMER 0.34 mg/L FEU Normal <=0.59 [facility] Comment on above: Performed By: #### P OCGLUC #### [facility] [address] [place], [place] [address] Dr. Gibson Jin D-DIMER COMMENTS SEE BELOW Normal [facility] Comment on above: Result Comment: Incr [...] By: #### P OCGLUC #### [facility] [address] [place] [address] Dr. Gibson Jin DRUG SCREEN RAPID (URINE)on 10-12-2022 AMP Negative Normal NEGATIVE [facility] Comment on above: Performed By: #### P OCGLUC #### [facility] [address] [place] [address] Dr. iGbson Jin BAR Negative Normal NEGATIVE [facility] Comment on above: Performed By: #### P OCGLUC #### [facility] [address] [place] [address] Dr. Gibson Jin BUP Negative Normal NEGATIVE [facility] Comment on above: Performed By: #### P OCGLUC #### [facility] [address] [place] [address] Dr. Gibson Jin BZO Negative Normal NEGATIVE [facility] Comment on above: Performed By: #### P OCGLUC #### [facility] [address] [place] [address] Dr. Gibson Jin CANDACE Negative Normal NEGATIVE [facility] Comment on above: Performed By: #### P OCGLUC #### [facility] [address] [place] [address] Dr. Gibson Jin CUT-OFFS SEE BELOW Normal [facility] Comment on above: Result Comment: AMP (Amphetamine): [...] By: #### P OCGLUC #### [facility] [address] [place] [address] Dr. Gibson Jin DRUG CUT HEADER DRUG CLASS TEST SYSTEM CUT-OFF CONCENTRATIONS ARE FOLLOWS: Normal [facility] Comment on above: Performed By: #### P OCGLUC #### [facility] [address] [address] [address] Gibson Jin mAMP Negative Normal NEGATIVE [facility] Comment on above: Performed By: #### P OCGLUC #### [facility] [address] [address] [address] Gibson Jin MTD Negative Normal NEGATIVE [facility] Comment on above: Performed By: #### P OCGLUC #### [facility] [address] [address] [address] Gibson Jin OPI Positive Abnormal NEGATIVE [facility] Comment on above: Performed By: #### P OCGLUC #### [facility] [address] [place] [address] Dr. Gibson Jin OXY Negative Normal NEGATIVE [facility] Comment on above: Performed By: #### P OCGLUC #### [facility] [address] [place] [address] Dr. Gibson Jin PCP Negative Normal NEGATIVE [facility] Comment on above: Performed By: #### P OCGLUC #### [facility] [address] [address] [address] Gibson Jin PPX Negative Normal NEGATIVE [facility] Comment on above: Performed By: #### P OCGLUC #### [facility] [address] [address] [address] Gibson Jin TCA Negative Normal NEGATIVE [facility] Comment on above: Performed By: #### P OCGLUC #### [facility] [address] [address] [address] Gibson Jin THC Negative Normal NEGATIVE [facility] Comment on above: Performed By: #### P OCGLUC #### [facility] [address] [place] [address] Dr. Gibson Jin POINT OF CARE GLUCOSEon 03-2 0 Glucose [Mass/Vol] 220 mg/dL Critically high 74-106 [facility] Comment on above: Performed By: #### P OCGLUC #### [facility] [address] [address] [address] Gibson Jin Glucose [Mass/Vol] 298 mg/dL Critically high 74-106 [facility] Comment on above: Performed By: #### P OCGLUC #### [facility] [address] [address] [address] Gibson Jin PROF 14(COMP METB)on 023 Albumin [Mass/Vol] 3.7 g/dL Normal 3.4-5.0 [facility] Comment on above: Performed By: #### C MP, HSTROPN #### [facility] [address] [address] [address] Gibson Jin Albumin/Globulin [Mass ratio] 1.0 {ratio} Normal [facility] Comment on above: Performed By: #### C MP, HSTROPN #### [facility] [address] [address] [address] Gibson Jin ALP [Catalytic activity/Vol] 175 U/L Critically high 46-116 [facility] Comment on above: Performed By: #### C MP, HSTROPN #### [facility] [address] [address] [address] Gibson Jin ALT [Catalytic activity/Vol] 167 U/L Critically high 14-59 [facility] Comment on above: Performed By: #### C MP, HSTROPN #### [facility] [address] [address] [address] Gibson Jin Anion gap [Moles/Vol] 10.6 mmol/L Normal [facility] Comment on above: Performed By: #### C MP, HSTROPN #### [facility] [address] [address] [address] Gibson Jin AST [Catalytic activity/Vol] 49 U/L Critically high 15-37 [facility] Comment on above: Performed By: #### C MP, HSTROPN #### [facility] [address] [address] [address] Gibson Jin Bilirubin [Mass/Vol] 0.4 mg/dL Normal 0.2-1.0 [facility] Comment on above: Performed By: #### C MP, HSTROPN #### [facility] [address] [place] [address] Dr. Gibson Jin Calcium [Mass/Vol] 9.1 mg/dL Normal 8.5-10.1 [facility] Comment on above: Performed By: #### C MP, HSTROPN #### [facility] [address] [place] [address] Dr. Gibson Jin Chloride [Moles/Vol] 102 mmol/L Normal 98-107 [facility] Comment on above: Performed By: #### C MP, HSTROPN #### [facility] [address] [place] [address] Dr. Gibson Jin CO2 [Moles/Vol] 26.8 mmol/L Normal 21.0-32.0 [facility] Comment on above: Performed By: #### C MP, HSTROPN #### [facility] [address] [place] [address] Dr. Gibson Jin Creatinine [Mass/Vol] 0.90 mg/dL Normal 0.55-1.02 [facility] Comment on above: Performed By: #### C KARLIE, HSTROPN #### [facility] [address] [place] [address] Dr. Gibson Jin EGFR-AF HUNGARIAN >60 Normal >=60 [facility] Comment on above: Performed By: #### C MP, HSTROPN #### [facility] [address] [place] [address] Dr. Gibson Jin EGFR-NON AF HUNGARIAN >60 Normal >=60 [facility] Comment on above: Performed By: #### C MP, HSTROPN #### [facility] [address] [place] [address] Dr. Gibson Jin Globulin (S) [Mass/Vol] 3.6 g/dL Normal [facility] Comment on above: Performed By: #### C MP, HSTROPN #### [facility] [address] [place] [address] Dr. Gibson Jin Glucose [Mass/Vol] 288 mg/dL Critically high 74-106 [facility] Comment on above: Performed By: #### C MP, HSTROPN #### [facility] [address] [place] [address] Dr. Gibson Jin Potassium [Moles/Vol] 3.4 mmol/L Critically low 3.5-5.1 [facility] Comment on above: Performed By: #### C MP, HSTROPN #### [facility] [address] [place] [address] Dr. Gibson Jin Protein [Mass/Vol] 7.3 g/dL Normal 6.4-8.2 [facility] Comment on above: Performed By: #### C MP, HSTROPN #### [facility] [address] [place] [address] Dr. Gibson Jin Sodium [Moles/Vol] 136 mmol/L Normal 136-145 [facility] Comment on above: Performed By: #### C MP, HSTROPN #### [facility] [address] [place] [address] Dr. Gibson Jin Urea nitrogen [Mass/Vol] 13.0 mg/dL Normal 7.0-18.0 [facility] Comment on above: Performed By: #### C MP, HSTROPN #### [facility] [address] [place] [address] Dr. Gibson Jin Urea nitrogen/Creatinine [Mass ratio] 14.4 mg/mg Normal [facility] Comment on above: Performed By: #### C MP, HSTROPN #### [facility] [address] [place] [address] Dr. Gibson Jin TROPONIN, HIGH SENSITIVITYon 10-12-2022 HSTROP <4.0 Normal 4.0-51.3 [facility] Comment on above: Result Comment: CUT- OFF POINTS HAVE BEEN ESTABLISHED BASED ON THE FOURTH UNIVERSAL DEFINITIONS OF MYOCARDIAL INFARCTION. THE UPPER REFERENCE LIMIT (URL) OF TROPONIN, DEFINED THE 99TH PERCENTILE OF cTnI DISTRIBUTION IN A REFERENCE POPULATION, HAS BEEN CONFIRMED THE DECISION THRESHOLD FOR [place] DIAGNOSIS. Performed By: #### P OCGLUC #### [facility] [address] [place], [place] [address] Dr. Gibson Jin HSTROP <4.0 Normal 4.0-51.3 [facility] Comment on above: Result Comment: CUT- OFF POINTS HAVE BEEN ESTABLISHED BASED ON THE FOURTH UNIVERSAL DEFINITIONS OF MYOCARDIAL INFARCTION. THE UPPER REFERENCE LIMIT (URL) OF TROPONIN, DEFINED THE 99TH PERCENTILE OF cTnI DISTRIBUTION IN A REFERENCE POPULATION, HAS BEEN CONFIRMED THE DECISION THRESHOLD FOR [place] DIAGNOSIS. Performed By: #### C MP, HSTROPN #### [facility] [address] [place], [place] [address] Dr. Gibson Jin XR CHEST 1 Von [...] cardiopulmonary process. Stable chest. Electronically authenticated by: MATTHEW WINN Date: 2022-10-12 10:36 Normal [facility] COVID + FLU Quick Testingon 09-20-2022 SARS-CoV-2 (COVID-19) RNA RIDGE+probe Ql (Unsp spec) Negative [employer] Other COVID + FLU Quick Testing Negative [employer] Other Quick Strepon 09-20-2022 S. pyogenes Org specific cx Ql (Throat) Negative [employer] Other Quick Strep [facility] [employer] Other COVID/FLU/RSV RT-PCRon 06-30 SARS-CoV-2 (COVID-19) RNA RIDGE+probe Ql (Unsp spec) Negative [employer] Other COVID/FLU/RSV RT-PCR Negative [employer] Other Registrationon 02-04-2022 Registration [id number]# 1.00CD:127 Normal [facility] 01-09-2022 Consent [id number] #1.00CD:127 Normal [facility] COVID/FLU RT-PCRon SARS-CoV-2 (COVID-19) RNA RIDGE+probe Ql (Unsp spec) Positive [employer] Other COVID/FLU RT-PCR Negative [facility] [employer] Other Coding Summary.on 08-04-2021 Coding Summary. CD:[id number] Gh0bWw+PGhlYWQ+PE1FV GLlZ54hhNHzzL4OG8fUI P4LZGHGSCQFNU6LAB8ra OJ5PTopC5XoecPc MfywoPYdXF77ZAa6RRU0 qMvvOPtvvR1roRDlO1p6 PaBuWQ16oY94UTulFPNc MwG0KdBmbbawaZMs X1ufOiOnnTSuYob+PHRh YmxlIHdpZHRoPScxMDAl JgZxdJgmTR9tBq1cOAIv LWNvbGxhcHNlOiBj n1ooADKiMRbsBR8ydIkj H6DfqRG9LSCeh0h6Gt10 dHI+MWMiIKX5uWnkJXtr y400PmVop3cfTPL7 rASjEYwvSPC1F83za6V5 YWCyOJZeWWI1rCM8lY7c sXnxcdkoL4VtbHXyPkD7 POM3qNGvrR8kkZiu yghupO3tOtc+G73WQS0U BTNHPO9RLgp7V5KgQjuj dHI+XB16ECZxCP49oOOf fNZxt9bpgWq5KnGc QLDkAVK0oOfbKFoth0Td ZISvT22ieUJnd5G5KXHn qCsumDThBsFwxWR9iX2x GWdwskrkq3wsamyv Bbuzc9mcbr36oE63M01q GYlwFEFtZBS9KYJaGTDq zLpvnh0qzI1lUi3+IDxj e2fag9cakLy0SyXy JMJnqzMtwBivIMK4t9Pd Rh03N9ZjbPvfi8QsHgx4 rq98yEXlz1Q2xBZ4EGmj GVUywD9lOUjnBkD1 FHSrMfMrhP22zCNaOPpv Ex2cnBwdiAfyZA2yVXXx kmtjCQWalJ2mSRGrlGRc yOaeXX3hNDDroorg p516LjJqRAC1XIDksZQf K7YtoE5ePcPmDBRdSDOp K9IthWLgBMwjN707BNqy LqV0OFUilzHcG3Fz DGJptZqhNaF4b8A0Ey0V z0RuanjxEKX6WSxvUSVz LkDcQrVcCwN8K9ZiLif1 KQGtdMcbMR5sI0Mm YNKedgiwzxggtTR4CTFv JHLlhJ72nZGhUDkxBa3p c0C6c221OYIkJBVbsD13 Lu8lySrvDOPxlEOY iQ7eavlnj4txvylfRpFm BSHsGXp2GQd0TINlcSzr YiWeLRW7RwQ9QJN4gAIy pP5hjOhphvbguZ6g Oyc+I86nsC7hUZV6ALV5 yfxsKHRoptZfAW38IL34 K7BhRaiwvZHvqEK+PGRp aeNhtOfgRX0uLbNa z3kqm9TqMTupF1SkSQIs OSwzUks0WYUhBET4gDY2 iB0rHRGbYBlpy1I8tNI7 C3XpauLbgg9ij3ki IYAbIQllR77dvCJlh4F9 DPEthQG8DVKsaKplDbWr wG82Gdy+JFCiaYtsa8Pn Xwkcy4kns4rjrJc4 IjMwJSIgdmFsaWduPSJ0 x8PiDz06G86pJXgtLLVn EEAoXFYnDFEnoAzxjc4q tP8qKk9+PGNvbCB3 vJC1eN6eCWWbFrB2WSbb P083SvCmpZEiBikel9vf z0cfbEr3QqYtLWDrezOr jJbtMYY0x1RrFw26 N52nDUufEHMfNDHpXPZq QFIlpHyfdn2vtS8sOp5+ LP9md9hwha72bL92qFI+ ZABjKZD0uYpeXLjw YOMegY3mAPvgVyE4KKBf FzZjqS62tXVuRCmySy2q uZwsbOxoYZ1sWBQdufdp d014ImVjr1pzFBXm mBIiNJhcVIE4O07vn6N1 WCOrGQYnTRQ6pMY6iX6q bGlnbjogbGVmdDsgdmVy tGusNDwmBLiyU481 IHRvcDsnPlBhdGllbnQg KeMxIOv7R9IoTuu7FZHg oAkdSF7jfFBrNSwiYf1l dSeccOwcAN3rNSTx fzrfh121CiQhj7ldRWTw jHKjEDqzYLC8M37ck2P0 MOBeOJYlRKV3mAG0pO3n bGlnbjogbGVmdDsg heRpsVxzKZdyGFixN418 IHRvcDsnPkJpcnRoIERh rCU7QH80KP22kVYfx0R8 cDU8F4QtGLMebvpt jmxzpCS5BVBnVREveO27 St9jbWjfYu1fBCRqIIS1 FUXtdYSoZ8TrrC7nZmLn MMCgOKVjB3BtrQLi YLaaM089QFnlXaL4JOQk vqNzB5EaQALmxVkmMrY0 y7S2Ez6NK7Z4PQ84AM63 tZZba5Y8wUT0Y8Ef RKTxtsaweokjyXG8GPPt FKRbhQ98Ry7wuYqtLu4b ACNiLKP3AELwmBIsP9Zf dK9aKwEwZPPcEPCv I0TxtXLuHKspB736YZuj HdS2TVKgsaWuY4RcINEj qTycDgR4b5P9Jb9IGWi0 RX20UZ89iZAff6V0 qPG3G5WfWYPjvcipophg qME1JGXbKWYwuX57Kv8x cZkbXn8iFLZgJUJ6GMAq mCNjR2UscA5eLuMb FABmVSVfF6MxoJFgKXyk M385KZrxAhE5WRXmrsNt X7ToCWKqvYrzDiK1u5N2 Zc2NOZIaWT11KVM6 mMN7BA75IA02B5LtNcao dGFibGU+PHRhYmxlIHdp ZHRoPScxMDAlJyBzdHls WR7jOn9bYFFqMERn xAcoaLMvXiWyu9lrRBXs YFxqKF6whRovE3QgyZG7 IATtq9y8Zs67K21kT6Lz dXA+TWXcnSI2cYD5 aG0kCpVgSdD3KGubU123 NcSheZEyQwofn7lkp8jk gBz7WwY9WOYliqJtzMec ZHL4n0EmSx18H82v IHdpZHRoPSIxNSUiIHZh bJkhmq7agH9eXt1+PGNv nKO1vTX6hD9wJrYuCvT8 NWcpJ742FsDgiVOp Iqlir5bjz0pviUs3AmCp NPWdakYxtBhsDJK9u2Dn Ax25Y7WrfPgjs5JfZtp4 zk17sDLwo7Z4pKN7 L2UhJKHhysiwkTQoaQez HG6kTPQxaufuPSLotO7o KMHxX5b2KoHuNaK2SDxh G6WrhyP7MJIqvTFr AWnrPJU3Q74ze1H3QTJt XMOdOFF6iHL8mX1ncAmf bjogbGVmdDsgdmVydGlj JNklGGwqC300ADJm oEgqINQzxY3yGKYxuLNk uQwfAZ3vPYOgktyaNqmP UkNJQSwgTUFSSUEgRDwv dGQ+DSMqTXZ7xNhq QZuaDVVamK7fCSCyF6h8 YhRcGdN1NLjsT1CzKWSy iwwbOb63sG5zJhXhWsS0 EFihW9KvxeM0BLSc wZYyOYizXFN0T97dl2Q9 AAArMIKwQPB7yMI1zU4g bGlnbjogbGVmdDsgdmVy zQkuKWyzGZxjG852 FNIelTrhKqZsYnS8XvS7 WrQ7C8WkSdk0GMYcnWen VT6waCBkPDedTj9fpTzm hVcxBZ7qUPEtdxbn OHJqqO9tSDLchQDnnJaj NI5aTGIcelanr287UsXv UDH7MXFhuJDaS9WyzH9n NwMvLKNrXPInQ6Go lABwPOtwW847HCxyFdT9 YLAsfuKoC9OiKWOuaEas ThO2j3L4It27TNSGVNFr czwvdGQ+PHRkIHN0 rRzzVDnsEGKgeA9yPOGt Q1b6KlHkAkK3AHnhY3Nx IMQausqfTd85qY7hXyLc JpH6RDrkI3LnpuS2 MIAbfCKcKKfkRQO8R38j a9S2NSZhPHEkMSL0mCN1 vE1tgWwxgyjyeVGtpSav dmVydGljYWwtYWxp U014TYZgrIgxYsEhaGXr ZTwvdGQ+LAOcARL0oZnt SRifMMQkvU8cXMWyO6e0 CwMxIxG3KQaiG8Ne TFIcyqqySy61fY0qVfWq AtV5OKqvH4RyggT0ASIm rRJvEQucJVC2T99jr8X5 VRGmOGItWOH8tFC1 lX1qzDoatntkxRXufYjw wlPfsIakQBkcNMtdY154 IEPmeHvvZcAfW5Puuodc ZzwvdGQ+OU23ov92 P3UnPwltGof6DDBrWUD2 tLW4uU6uTVAcCYgam9R9 rVH0X5OecvZkro2ms8ps YAUmMGuyH04mmOTg d0J7QIDbzIA0TTFabBmt CjIdfX37Ujs+PGNvbGdy t5GbQqtnk0sxo9tvjRi6 IjMwJSIgdmFsaWdu PUJ1u0JkOu64P32uQUnm ZHRoPSIzMCUiIHZhbGln nm7ntN3pIp0+PGNvbCB3 wYU1kY5lUkKyKcT4 IEsfH957MvWfsDJwAsgt z5qap9hfvFa0TeXeJEAc qlCqeOdkCLR5i9JrMq73 G8GdcUsod1YeCuk9 ie79zPBpo4E4rRY9B0Im OAMntruafLNogBugSK1i MKMejhxmYGTbqD4lYSWo N4e1FjHdMxN5OFjt U4TcwuF0MQYnvCQvHLGa aQOYmU8moytry5uqrtsg NbAvEVNxYXl1AEn6BEPj dOzeKvUyPMP2DtA6 LLK1lSOssO5lcHigzmjx kG0dClh+GIi6e3bgdXRt SU9jaEH2HB37ZF00lDUz y7E8mII4W1JkBEYl nyzknlywcCN1SBZlYJYo bY28Cj2nuKifTq8aAZSf FAC3UQDasZToN1YtjL8m EdPjPOTmFNSvN1Zg wNOuETncR840UFejNlV3 GMHnruWvE8VkWGKelOgt CeB9t1I7Yl7PLK21HV91 MX51lGQcs2H0jHC5 W6TsSARurfyevxslzRA4 PNIjEDJnfM80Kh3vkOcp Uc6bDMOcJHB2BNEqaCCi Q3MsbM9qVkTuKSHz UTFuI9DlfZNbRNsbL857 TTryXgD5STXrooJuY3Zr STDkiIjhAbI3g7I4Yq2I Qr72TE37EO76tJAq u4W9yUQ5C6LwDBEkphtt lwzkbWL5JQUxTCHcaX48 Ni0buPuuLl2tNHBoRQX6 RBRfbDSkR3SvqL9s ImCxIGDwEXNyT9GhkKZv YWqmU044THzmJeZ1MPBd kzAjB3AeMUNmuFvuEhX2 v7V6Ab4METpxbit3 B9KvQairkTL+QP91RDEy MC76tEVstUPgs0zunVo8 SlZcIMQcQHY2aTmmWXzd a9LsBAKnO17grSKm c2U6 (more content not included)... Normal [facility] Consent for Treatmenton Consent for Treatment [id number] Normal [facility] COVID-19 ([facility])on 08-01-2021 SARS-CoV-2 (COVID-19) RNA RIDGE+probe Ql (Resp) Not detected Normal Not Detected [facility] Comment on above: Result Comment: This test result should be correlated with clinical presentations and medical history by a healthcare provider to determine its clinical significance. This assay was performed by a reverse transcriptase real-time polymerase chain reaction (rt PCR) method on the [employer] system. This test has been authorized only [...] or revoked sooner. Performed By: #### 2 [id number] #### [facility] [address] [place] [address] SARS-CoV-2 (COVID-19) RNA RIDGE+probe Ql (Unsp spec) Pass Normal Pass [facility] Comment on above: Performed By: #### 2 [id number] #### [facility] [address] [place] [address] Specimen source Nom (Unsp spec) Nasal Normal [facility] Comment on above: Performed By: #### 2 [id number] #### [facility] [address] [place] [address] COVID-19 ([facility])on 07-30-2021 ADMITTED TO INTENSIVE CARE UNIT FOR CONDITION OF INTEREST:FIND:PT: Unknown Normal [facility] Comment on above: Performed By: #### 2 [id number] #### [facility] [address] [place] [address] EMPLOYED IN A HEALTHCARE SETTING:FIND:PT: Unknown Normal [facility] Comment on above: Performed By: #### 2 [id number] #### [facility] [address] [place] [address] FIRST TEST FOR CONDITION OF INTEREST:FIND:PT: Unknown Normal [facility] Comment on above: Performed By: #### 2 [id number] #### [facility] [address] [place] [address] HAS SYMPTOMS RELATED TO CONDITION OF INTEREST:FIND:PT: Unknown Normal [facility] Comment on above: Performed By: #### 2 [id number] #### [facility] [address] [place] [address] HOSPITALIZED FOR CONDITION OF INTEREST:FIND:PT: Unknown Normal [facility] Comment on above: Performed By: #### 2 [id number] #### [facility] [address] [place] [address] STATUS:FIND:PT: Unknown Normal [facility] Comment on above: Performed By: #### 2 [id number] #### [facility] [address] [id number] RESIDES IN A CONGREGATE CARE SETTING:FIND:PT: Unknown Normal [facility] Comment on above: Performed By: #### 2 [id number] #### [facility] [address] [id number] CTA CHEST W CONTRASTon 01-14 CTA CHEST [...] Kwabena Peña MD 01/13/21 Final result Normal [facility] CBC Auto DifferentialOrdered By: Tita Edwards on 01-13-2021 Absolute Eos # 0.10 [facility] Work Phone: Absolute Immature Granulocyte NOT REPORTED [facility] Work Phone: Absolute Lymph # 0.80 Low [facility] Work Phone: Absolute Cross # 0.50 [facility] Work Phone: Basophils (Bld) [#/Vol] 0.00 10*3/uL [employer] Work Phone: Basophils/100 WBC (Bld) 0 % 0 - 2 % [employer] Phone: Differential Type YES [employer] Work Phone: Eosinophils/100 WBC (Bld) 1 % 0 - 5 % [employer] Work Phone: Hematocrit (Bld) [Volume fraction] 42.0 % 36 - 46 % [employer] Phone: Hemoglobin.gastrointes tinal spec 1 Ql (Stl) 14.3 g/dL 12.0 - 16.0 g/dL [employer] Phone: Immature Granulocytes NOT REPORTED 0 % [employer] Work Phone: Interpretation and review of laboratory results Abnormal [employer] Phone: Lymphocytes/100 WBC (Bld) 11 % Low 15 - 40 % [employer] Phone: MCH (RBC) [Entitic mass] 29.5 pg 26 - 34 pg [employer] Phone: MCHC (RBC) [Mass/Vol] 34.1 g/dL 31 - 37 g/dL [employer] Phone: MCV (RBC) [Entitic vol] 86.5 fL 80 - 100 fL [employer] Phone: Monocytes/100 WBC (Bld) 7 % 4 - 8 % [employer] Phone: NRBC Automated NOT REPORTED per 100 WBC [employer] Work Phone: Platelet distribution width (Bld) [Ratio] 13.3 % 12.1 - 15.2 % [employer] Phone: Platelet Estimate NOT REPORTED [employer] Phone: Platelet mean volume (Bld) [Entitic vol] NOT REPORTED 6.0 - 12.0 fL [employer] Phone: Platelets (Bld) [#/Vol] 340 10*3/uL [employer] Phone: RBC (Bld) [#/Vol] 4.86 10*6/uL 4.0 - 5.2 m/uL [employer] Phone: RBC (Bld) [#/Vol] NOT REPORTED [employer] Phone: Segmented neutrophils/100 WBC (Bld) 81 % High 47 - 75 % [employer] Phone: Segs Absolute 6.30 [employer] Work Phone: WBC (Bld) [#/Vol] 7.8 10*3/uL [employer] Phone: WBC (Bld) [#/Vol] NOT REPORTED [employer] Phone: [employer] Phone: CBC with Diffon 01-13-2021 Abs. Basophil 0.00 k/uL Normal 0.0-0.2 [facility] Comment on above: Performed By: #### D DRE NARANJO, REJEC #### [facility] [address] [place] [address] [employer] Second: Flash Jaramillo MD Abs.Neutrophil (Seg) 6.30 k/uL Normal 2.5-7.0 [facility] Comment on above: Performed By: #### D DRE NARANJO, REJEC #### [facility] [address] [facility] [place] [address] [employer] Second: Flash Jaramillo MD Auto Diff Performed YES Normal [facility] Comment on above: Performed By: #### D DRE NARANJO, REJEC #### [facility] [address] [place], [place] [phone] [employer] Second: Flash Jaramillo MD Basophils/100 WBC (Bld) 0 % Normal 0-[address] [facility] Comment on above: Performed By: #### DRE SIU, REJEC #### [facility] [address] [place] [phone] [employer] Second: Flash Jaramillo MD Eosinophils (Bld) [#/Vol] 0.10 10*3/uL Normal 0.0-0.[address] [facility] Comment on above: Performed By: #### DRE SUI, REJEC #### [facility] [address] [place] [address] [employer] Second: Flash Jaramillo MD Eosinophils/100 WBC (Bld) 1 % Normal 0-[address] [facility] Comment on above: Performed By: #### DRE SIU, REJEC #### [facility] [address] [place] [address] [employer] Second: Flash Jaramillo MD Erythrocyte distribution width (RBC) [Ratio] 13.3 % Normal 12.1-15.[address] [facility] Comment on above: Performed By: #### DRE SIU, REJEC #### [facility] [address] [place] [phone] [employer] Second: Flash Jaramillo MD Hematocrit (Bld) [Volume fraction] 42.0 % Normal 36-[address] [facility] Comment on above: Performed By: #### DRE SIU, REJEC #### [facility] [address] [place] [phone] [employer] Second: Flash Jaramillo MD Hemoglobin (Bld) [Mass/Vol] 14.3 g/dL Normal 12.0-16.[address] [facility] Comment on above: Performed By: #### DRE SIU, REJEC #### [facility] [address] [place] [phone] [employer] Second: Flash Jaramillo MD Lymphocytes (Bld) [#/Vol] 0.80 10*3/uL Low 1.0-4.[address] [facility] Comment on above: Performed By: #### DRE SIU, REJEC #### [facility] [address] [place] [phone] [employer] Second: Flash Jaramillo MD Lymphocytes/100 WBC (Bld) 11 % Low 15-[address] [facility] Comment on above: Performed By: #### DRE SIU, REJEC #### [facility] [address] [place] [address] [employer] Second: Flash Jaramillo MD MCH (RBC) [Entitic mass] 29.5 pg Normal 26-[address] [facility] Comment on above: Performed By: #### DRE SIU, REJEC #### [facility] [address] [place] [address] [employer] Second: Flash Jaramillo MD MCHC (RBC) [Mass/Vol] 34.1 g/dL Normal 31-[address] [facility] Comment on above: Performed By: #### DRE SIU, REJEC #### [facility] [address] [place] [address] [employer] Second: Flash Jaramillo MD MCV (RBC) [Entitic vol] 86.5 fL Normal 80-[address] [facility] Comment on above: Performed By: #### DRE SIU, REJEC #### [facility] [address] [place] [phone] [employer] Second: Flash Jaramillo MD Monocytes (Bld) [#/Vol] 0.50 10*3/uL Normal 0.0-1.[address] [facility] Comment on above: Performed By: #### DRE SIU, REJEC #### [facility] [address] [place] [address] [employer] Second: Flash Jaramillo MD Monocytes/100 WBC (Bld) 7 % Normal 4-[address] [facility] Comment on above: Performed By: #### D DRE NARANJO, REJEC #### [facility] [address] [place], [place] [phone] Baker Second: Flash Jaramillo MD Neutrophil (Seg) 81 % High 47-75 [facility] Comment on above: Performed By: #### D DRE NARANJO, REJEC #### [facility] [address] [place] [address] [employer] Second: Flash Jaramillo MD Platelets (Bld) [#/Vol] 340 10*3/uL Normal 140-[address] [facility] Comment on above: Performed By: #### D DRE NARANJO, REJEC #### [facility] [address] [place] [address] [employer] Second: Flash Jaramillo MD RBC (Bld) [#/Vol] 4.86 10*6/uL Normal 4.0-5.[address] [facility] Comment on above: Performed By: #### DRE SIU, REJEC #### [facility] [address] [place] [address] [employer] Second: Flash Jaramillo MD WBC (Bld) [#/Vol] 7.8 10*3/uL Normal 3.5-11.[address] [facility] Comment on above: Performed By: #### D DRE NARANJO, REJEC #### [facility] [address] [place] [address] [employer] Second: Flash Jaramillo MD Abs.Imm.Granulocyte NOT REPORTED Normal 0.00-0.[address] [facility] Comment on above: Performed By: #### DRE SIU, REJEC #### [facility] [address] [place] [address] [employer] Second: Flash Jaramillo MD Immature Granulocyte NOT REPORTED Normal 0 Me [facility] Comment on above: Performed By: #### D DRE NARANJO, REJEC #### [facility] [address] [place] [address] [employer] Second: Flash Jaramillo MD MPV NOT REPORTED Normal 6.0-12.[address] [facility] Comment on above: Performed By: #### D DRE NARANJO, REJEC #### [facility] [address] [place] [address] [employer] Second: Flash Jaramillo MD NRBC Automated NOT REPORTED Normal [facility] Comment on above: Performed By: #### D DRE NARANJO, REJEC #### [facility] [address] [place] [address] [employer] Second: Flash Jaramillo MD Platelet Estimate NOT REPORTED Normal [facility] Comment on above: Performed By: #### D DRE NARANJO, REJEC #### [facility] [address] [place] [address] [employer] Second: Flash Jaramillo MD RBC morphology finding Nom (Bld) NOT REPORTED Normal [facility] Comment on above: Performed By: #### D DRE NARANJO, REJEC #### [facility] [address] [place] [address] [employer] Second: Flash Jaramillo MD WBC Morphology NOT REPORTED Normal [facility] Comment on above: Performed By: #### D DRE NARANJO, REJEC #### [facility] [address] [place] [address] [employer] Second: Flash Jaramillo MD CTA CHEST W CONTRASTOrdered By: Tita Edwards on 01-13-2021 No evidence for acute large occlusive pulmonary embolism. No evidence for thoracic aortic aneurysm or dissection flap. No suspicious lung infiltrates or consolidation. Hepatic steatosis. Mild gastroesophageal wall thickening, correlate clinically. [facility] Work Phone: EXAMINATION: CTA CHEST W CONTRAST [...] distal esophagitis/wall lesion. No acute bony abnormality. [employer] Phone: [place], pn Incoming Radiant Results From [employer] - 01/13/2021 10:06 PM EDT EXAMINATION: CTA [...] steatosis. Mild gastroesophageal wall thickening, correlate clinically. [facility] Work Phone: [facility] Work Phone: Comp Metabolic Profon 2020 (cont.) Normal [facility] Comment on above: Result Comment: Aver age GFR for 50-59 years old: 93 mL/min/1.73sq m Chronic Kidney Disease: <60 mL/min/1.73sq m Kidney failure: <15 mL/min/1.73sq m eGFR calculated using average adult body mass. Additional eGFR calculator available at: http://www.Truly/multiple_crcl_2011.htm Performed By: #### C P, TROPI #### [facility] [address] [place], [place] [phone] [employer] Second: Flash Jaramillo MD Albumin [Mass/Vol] 4.3 g/dL Normal 3.5-5.[address] [facility] Comment on above: Performed By: #### C P, TROPI #### [facility] [address] [place], [place] [phone] [employer] Second: Flash Jaramillo MD Alkaline Phos 165 U/L High 35-104 [facility] Comment on above: Performed By: #### C P, TROPI #### [facility] [address] [place] [address] [employer] Second: Flash Jaramillo MD ALT [Catalytic activity/Vol] 24 U/L Normal 5-[address] [facility] Comment on above: Performed By: #### C P, TROPI #### [facility] [address] [place] [address] [employer] Second: Flash Jaramillo MD Anion gap [Moles/Vol] 10 mmol/L Normal 9-[address] [facility] Comment on above: Performed By: #### C P, TROPI #### [facility] [address] [place] [address] [employer] Second: Flash Jaramillo MD AST [Catalytic activity/Vol] 14 U/L Normal <[address] [facility] Comment on above: Performed By: #### C P, TROPI #### [facility] [address] [place], [place] [phone] [employer] Second: Flash Jaramillo MD Bilirubin [Mass/Vol] 0.24 mg/dL Low 0.30-1.20 [facility] Comment on above: Performed By: #### C P, TROPI #### [facility] [address] [place] [address] [employer] Second: Flash Jaramillo MD BUN/CRE Ratio 16 Normal 9-20 [facility] Comment on above: Performed By: #### C P, TROPI #### [facility] [address] [place] [address] [employer] Second: Flash Jaramillo MD Calcium [Mass/Vol] 9.9 mg/dL Normal 8.6-10.[address] [facility] Comment on above: Performed By: #### C P, TROPI #### [facility] [address] [place] [address] [employer] Second: Flash Jaramillo MD Chloride [Moles/Vol] 101 mmol/L Normal 98-107 [facility] Comment on above: Performed By: #### C P, TROPI #### [facility] [address] [place] [address] [employer] Second: Flash Jaramillo MD CO2 [Moles/Vol] 24 mmol/L Normal 20-31 [facility] Comment on above: Performed By: #### C P, TROPI #### [facility] [address] [place], [place] [phone] [employer] Second: Flash Jaramillo MD Creatinine [Mass/Vol] 1.04 mg/dL High 0.50-0.[address] [facility] Comment on above: Performed By: #### C P, TROPI #### [facility] [address] [place], [place] [phone] [employer] Second: Flash Jaramillo MD GFR, Amer >60 Normal >60 [facility] Comment on above: Performed By: #### C P, TROPI #### [facility] [address] [place] [address] [employer] Second: Flash Jaramillo MD GFR,non Amer 55 mL/min Low >60 [facility] Comment on above: Performed By: #### C P, TROPI #### [facility] [address] [place], [place] [id number] Baker Second: Flash Jaramillo MD Glucose [Mass/Vol] 126 mg/dL High 70-[address] [facility] Comment on above: Performed By: #### C P, TROPI #### [facility] [address] [place], [place] [phone] [employer] Second: Flash Jaramillo MD Potassium [Moles/Vol] 4.2 mmol/L Normal 3.7-5.[address] [facility] Comment on above: Performed By: #### C P, TROPI #### [facility] [address] [place], [place] [phone] [employer] Second: Flash Jaramillo MD Protein [Mass/Vol] 7.9 g/dL Normal 6.4-8.[address] [facility] Comment on above: Performed By: #### C P, TROPI #### [facility] [address] [place] [address] [employer] Second: Flash Jaramillo MD Sodium [Moles/Vol] 135 mmol/L Normal 135-[address] [facility] Comment on above: Performed By: #### C P, TROPI #### [facility] [address] [place] [address] [employer] Second: Flash Jaramillo MD Urea nitrogen [Mass/Vol] 17 mg/dL Normal 6-[address] [facility] Comment on above: Performed By: #### C P, TROPI #### [facility] [address] [place], [place] [phone] Baker Second: Flash Jaramillo MD Albumin/Glob Ratio NOT REPORTED Normal 1.0-2.5 [facility] Comment on above: Performed By: #### C P, TROPI #### [facility] [address] [place], [place] [phone] Baker Second: Flash Jaramillo MD Staging: NOT REPORTED Normal [facility] Comment on above: Performed By: #### C P, TROPI #### [facility] [address] [place], [place] [phone] [employer] Second: Flash Jaramillo MD Comprehensive Metabolic Pane lOrdered By: Tita Edwards on 01-13-2021 Albumin [Mass/Vol] 4.3 g/dL 3.5 - 5.2 g/dL [employer] Phone: Albumin/Globulin Ratio NOT REPORTED [employer] Phone: ALP (Bld) [Catalytic activity/Vol] 165 U/L High 35 - 104 U/L [employer] Phone: ALT [Catalytic activity/Vol] 24 U/L 5 - 33 U/L [employer] Phone: Anion gap [Moles/Vol] 10 mmol/L 9 - 17 mmol/L [employer] Phone: AST [Catalytic activity/Vol] 14 U/L <32 [employer] Phone: Bilirubin [Mass/Vol] 0.24 mg/dL Low 0.30 - 1.20 mg/dL [employer] Phone: Calcium [Mass/Vol] 9.9 mg/dL 8.6 - 10. 4 mg/dL [employer] Phone: Chloride [Moles/Vol] 101 mmol/L 98 - 10 7 mmol/L [employer] Phone: CO2 [Moles/Vol] 24 mmol/L 20 - 31 mmol/L [employer] Phone: Creatinine [Mass/Vol] 1.04 mg/dL High 0.50 - 0.90 mg/dL [employer] Phone: Free PSA/Total PSA [Mass fraction] 7.9 g/dL 6.4 - 8.3 g/dL [employer] Phone: GFR >60 >60 mL/min [employer] Phone: GFR Non- 55 mL/min Low >60 [employer] Phone: GFR/1.73 sq M.predicted MDRD (S/P/Bld) [Vol rate/Area] [employer] Phone: Comment on above: Average GFR for 50-5 9 years old: 93 mL/min/1.73sq m Chronic Kidney Disease: <60 mL/min/1.73sq m Kidney failure: <15 mL/min/1.73sq m eGFR calculated using average adult body mass. Additional eGFR calculator available at: http://www.[employer]/multiple_crcl_2012.htm GFR/1.73 sq M.predicted MDRD (S/P/Bld) [Vol rate/Area] NOT REPORTED [employer] Phone: Glucose [Mass/Vol] 126 mg/dL High 70 - 99 mg/dL [employer] Phone: Interpretation and review of laboratory results Abnormal [employer] Phone: Potassium [Moles/Vol] 4.2 mmol/L 3.7 - 5.3 mmol/L [employer] Phone: Sodium [Moles/Vol] 135 mmol/L 135 - 144 mmol/L [employer] Work Phone: Urea nitrogen (BldV) [Mass/Vol] 17 mg/dL 6 - 20 mg/dL [facility] [employer] Phone: Urea nitrogen/Creatinine (Bld) [Mass ratio] 16 [facility] [employer] Work Phone: [facility] [employer] Phone: [employer] 01-13-2021 D-Dimer Test 0.88 mg/L FEU High 0.00-0.59 [facility] Comment on above: Result Comment: When [...] with distal DVT. Performed By: #### D MAR, CDP, REJEC #### [facility] [address] [place] [address] Baker Second: Flash Jaramillo MD D-Dimer, QuantitativeOrdered By: Tita Edwards on 01-13-2021 D-Dimer, Quant 0.88 High [facility] Work Phone: Comment on above: When [...] Interpretation and review of laboratory results Abnormal [employer] Phone: [employer] Phone: SPECIMEN REJECTIONOrdered By : Tita Edwards on 01-13-2021 - NOT REPORTED [employer] Phone: Ordered Test CP TROP [employer] Phone: Reason for Rejection Unable to perform testing: Specimen hemolyzed. [employer] Phone: Specimen source Nom (Unsp spec) BLOOD IV START [employer] Phone: [employer] Phone: Specimen Rejectionon 021 Reason for rejection Unable to perform testing: Specimen hemolyzed. [facility] Comment on above: Performed By: #### D DRE NARANJO, AMANDA #### [facility] [address] [place] [address] Baker Second: Flash Jaramillo MD Source of sample BLOOD IV START Normal [facility] Comment on above: Performed By: #### D DRE NARANJO, REJEC #### [facility] [address] [place], [place] [id number] Baker Second: Flash Jaramillo MD Test ordered CP TROP Normal [facility] Comment on above: Performed By: #### D DRE NARANJO, REJEC #### [facility] [address] [place], [place] [id number] Baker Second: Flash Jaramillo MD ----- NOT REPORTED Normal [facility] Comment on above: Performed By: #### D DRE NARANJO, REJEC #### [facility] [address] [place], [place] [id number] Baker Second: Flash Jaramillo MD Troponinon 01-13-2021 Troponin, High Sens <6 Normal 0-[address] [facility] Comment on above: Result Comment: High Sensitivity Troponin values cannot be compared with other Troponin methodologies. Patients with high levels of Biotin oral intake (i.e >5mg/day) may have falsely decreased Troponin levels. Samples collected within 8 hours of biotin intake may require additional information for diagnosis. Performed By: #### T DEREJE #### [facility] [address] [place] [address] Baker Second: Flash Jaramillo MD Troponin Interp. NOT REPORTED [facility] Comment on above: Performed By: #### T DONI #### [facility] [address] [place], [place] [id number] Baker Second: Flash Jaramillo MD Troponin T NOT REPORTED Normal <0.[address] [facility] Comment on above: Performed By: #### T DONI #### [facility] [address] [place], [place] [id number] Baker Second: Flash Jaramillo MD Troponin, High Sens <6 Normal 0-[address] [facility] Comment on above: Result Comment: High Sensitivity Troponin values cannot be compared with other Troponin methodologies. Patients with high levels of Biotin oral intake (i.e >5mg/day) may have falsely decreased Troponin levels. Samples collected within 8 hours of biotin intake may require additional information for diagnosis. Performed By: #### C P, TROPI #### [facility] [address] [place] [address] Baker Second: Flash Jaramillo MD Troponin Interp. NOT REPORTED Normal [facility] Comment on above: Performed By: #### C P, TROPI #### [facility] [address] [place] [address] Baker Second: Flash Jaramillo MD Troponin T NOT REPORTED Normal <0.[address] [facility] Comment on above: Performed By: #### C P, TROPI #### [facility] [address] [place], [place] [id number] Baker Second: Flash Jaramillo MD TroponinOrdered By: Tita Edwards on 01-13-2021 Troponin Interp NOT REPORTED [employer] Work Phone: Troponin T NOT REPORTED <0.03 ng/mL [employer] Work Phone: Troponin, High Sensitivity <6 0 - 14 ng/L [employer] Work Phone: Comment on above: High Sensitivity Troponin values cannot be compared with other Troponin methodologies. Patients with high levels of Biotin oral intake (i.e >5mg/day) may have falsely decreased Troponin levels. Samples collected within 8 hours of biotin intake may require additional information for diagnosis. [employer] Work Phone: Troponin Interp NOT REPORTED [employer] Work Phone: Troponin T NOT REPORTED <0.03 ng/mL [employer] Work Phone: Troponin, High Sensitivity <6 0 - 14 ng/L [employer] Phone: Comment on above: High Sensitivity Troponin values cannot be compared with other Troponin methodologies. Patients with high levels of Biotin oral intake (i.e >5mg/day) may have falsely decreased Troponin levels. Samples collected within 8 hours of biotin intake may require additional information for diagnosis. [employer] Phone: XR CHEST PORTABLEon 01-14-20 XR CHEST [...] Sarbjit Ramirez MD 01/13/21 Final result Normal [facility] XR CHEST PORTABLEOrdered By: Tita Edwards on 01-13-2021 No focal consolidation, pneumothorax or pleural effusion. [employer] Phone: EXAM: XR CHEST PORTABLE HISTORY: Shortness of breath, chest pain. COMPARISON: None. TECHNIQUE: AP radiograph of the chest was performed. FINDINGS: No focal consolidation, pneumothorax or pleural effusion. There is mild elevation of the right hemidiaphragm. The cardiomediastinal silhouette is unremarkable. There are degenerative changes of the spine. [employer] Phone: Moreno, pn Incoming Radiant Results From [employer] - 01/13/2021 8:24 PM EDT EXAM: XR CHEST PORTABLE HISTORY: Shortness of breath, chest pain. COMPARISON: None. TECHNIQUE: AP radiograph of the chest was performed. FINDINGS: No focal consolidation, pneumothorax or pleural effusion. There is mild elevation of the right hemidiaphragm. The cardiomediastinal silhouette is unremarkable. There are degenerative changes of the spine. IMPRESSION: No focal consolidation, pneumothorax or pleural effusion. [employer] Phone: [employer] Phone: Vital Signs Date Time Vital Sign Value Performing Clinician Facility 04-19-2024 13:13-0400 Body height 157.48 cm [facility] 04-19-2024 13:13-0400 Body mass index (BMI) [Ratio] 35.2 kg/m2 [facility] 04-19-2024 13:13-0400 Body temperature 98.1 [degF] [facility] 04-19-2024 13:13-0400 Body weight 87.31 kg [facility] 04-19-2024 13:13-0400 Diastolic blood pressure 82 mm[Hg] [facility] 04-19-2024 13:13-0400 Heart rate 87 /min [facility] 04-19-2024 13:13-0400 SaO2% (BldA) [Mass fraction] 97 % [facility] 04-19-2024 13:13-0400 Systolic blood pressure 126 mm[Hg] [facility] 06-16-2023 10:00-0500 Body height 157.48 cm Samra Shamika Other [facility] [employer] Other 06-16-2023 10:00-0500 Body mass index (BMI) [Ratio] 35.52 kg/m2 Samra Shamika Other [facility] [employer] Other 06-16-2023 10:00-0500 Body temperature 98 [degF] Samra Yehmond Other [employer] Other 06-16-2023 10:00-0500 Body weight 88.09 kg Samra Shamika Other [facility] [employer] Other 06-16-2023 10:00-0500 Diastolic blood pressure 80 mm[Hg] Samra Shamika Other [facility] [employer] Other 06-16-2023 10:00-0500 Respiratory rate 18 /min Samra Shamika Other [facility] [employer] Other 06-16-2023 10:00-0500 SaO2% (BldA) [Mass fraction] 95 % Samra Wick Other [employer] Other 06-16-2023 10:00-0500 Systolic blood pressure 132 mm[Hg] Samra Wick Other [employer] Other 09-20-2022 11:45-0500 Body height 157.48 cm Siobhan Meyers Other [employer] Other 09-20-2022 11:45-0500 Body mass index (BMI) [Ratio] 34.93 kg/m2 Siobhan Gonzalezault Other [employer] Other 09-20-2022 11:45-0500 Body temperature 98.3 [degF] Siobhan Gonzalezault Other [employer] Other 09-20-2022 11:45-0500 Body weight 86.64 kg Siobhan Meyers Other [employer] Other 09-20-2022 11:45-0500 Respiratory rate 18 /min Siobhan Meyers Other [employer] Other 09-20-2022 11:45-0500 SaO2% (BldA) [Mass fraction] 98 % Siobhan Gonzalezault Other [employer] Other 06-30-2022 18:35-0500 Body height 157.48 cm Cassandra Dumont Other [employer] Other 06-30-2022 18:35-0500 Body mass index (BMI) [Ratio] 34.56 kg/m2 Cassandra Dumont Other [employer] Other 06-30-2022 18:35-0500 Body temperature 97.7 [degF] Cassandra Dumont Other [employer] Other 06-30-2022 18:35-0500 Body weight 85.73 kg Cassandra Dumont Other [employer] Other 06-30-2022 18:35-0500 Diastolic blood pressure 72 mm[Hg] Cassandra Dumont Other [employer] Other 06-30-2022 18:35-0500 Respiratory rate 18 /min Cassandra Dumont Other [employer] Other 06-30-2022 18:35-0500 SaO2% (BldA) [Mass fraction] 98 % Cassandra Dumont Other [employer] Other 06-30-2022 18:35-0500 Systolic blood pressure 126 mm[Hg] Cassandra Dumont Other [employer] Other 12-18-2021 16:55-0400 Body height 157.48 cm Siobhan Luigi Other [employer] Other 12-18-2021 16:55-0400 Body mass index (BMI) [Ratio] 32.92 kg/m2 Siobhan Luigi Other [employer] Other 12-18-2021 16:55-0400 Body temperature 98.9 [degF] Siobhan Meyers Other [employer] Other 12-18-2021 16:55-0400 Body weight 81.65 kg Siobhan Meyers Other [employer] Other 12-18-2021 16:55-0400 Respiratory rate 16 /min Siobhan Meyers Other [employer] Other 12-18-2021 16:55-0400 SaO2% (BldA) [Mass fraction] 95 % Siobhan Meyers Other [employer] Other 01-13-2021 22:34-0400 Diastolic blood pressure 80 mm[Hg] Tita Edwards MD Work Phone: [employer] Phone: 01-13-2021 22:34-0400 Heart rate 78 /min Tita Edwards MD Work Phone: [employer] Work Phone: 01-13-2021 22:34-0400 Respiratory rate 17 /min Tita Edwards MD Work Phone: [employer] Phone: 01-13-2021 22:34-0400 Systolic blood pressure 134 mm[Hg] Tita Edwards MD Work Phone: [employer] Work Phone: 01-13-2021 19:33-0400 Body temperature 98.01 [degF] Tita Edwards MD Work Phone: [employer] Phone: 01-13-2021 19:33-0400 Body weight 79.38 kg Tita Edwards MD Work Phone: [employer] Phone: 01-13-2021 19:33-0400 SaO2% (BldA) [Mass fraction] 99 % Tita Edwards MD Work Phone: [employer] Work Phone: Encounters Encounter Date Encounter Type Care Provider Facility Start: 04-19-2024 End: 04-19-2024 ambulatory [facility] Work Phone: Start: 04-19-2024 End: 04-19-2024 Patient encounter procedure [facility] Work Phone: Start: 04-04-2024 End: 04-04-2024 ambulatory MITCHELL Horton [facility] Start: 03-31-2024 End: 03-31-2024 [facility] Start: 03-23-2024 ambulatory MITCHELL Horton [facility] Start: 03-21-2024 End: 03-26-2024 ambulatory MITCHELL Horton [facility] Start: 03-15-2024 End: 03-15-2024 [facility] Start: 03-03-2024 Non-patient / Non-visit [facility] Work Phone: Start: 12-21-2023 End: 12-23-2023 ambulatory UNKNOWN PROVIDER Facility:[facility] Start: 12-21-2023 End: 12-23-2023 Patient encounter procedure Elba Elkins DDS Work Phone: [facility] Start: 12-14-2023 End: 12-16-2023 Patient encounter procedure Maribel Waylon DDS Work Phone: [facility] Start: 12-14-2023 End: 12-16-2023 ambulatory UNKNOWN PROVIDER Facility:[facility] Start: 11-18-2023 End: 11-18-2023 ambulatory CHRIS DHILLON Not Available Start: 10-22-2023 End: 10-22-2023 ambulatory UNKNOWN PROVIDER Facility:[facility] Start: 10-01-2023 End: 10-01-2023 ambulatory CHRIS DHILLON Not Available Start: 09-15-2023 End: 09-16-2023 ambulatory UNKNOWN PROVIDER Facility:[facility] Start: 09-10-2023 End: 09-10-2023 ambulatory [facility] Start: 07-30-2023 End: 07-30-2023 [facility]ulatory [facility] Start: 06-29-2023 End: 06-29-2023 ambulatory CHRIS DHILLON Not Available Start: 06-16-2023 End: 06-16-2023 ambulatory Samra Wick Other [employer] Other Start: 06-16-2023 Office outpatient vi sit 15 minutes Samra Wick [facility] Start: 05-23-2023 Letter encounter Marisol ginny Start: 10-12-2022 End: 10-13-[address] ROMAIN CAN Facility: Start: 09-20-2022 End: 09-20-2022 ambulatory Siobhan Meyers Other [employer] Other Start: 09-20-2022 Office outpatient vi sit 15 minutes Siobhan Luigi [facility] Start: 06-30-2022 End: 06-30-2022 ambulatory Cassandra Dumont Other [employer] Other Start: 06-30-2022 Office outpatient vi sit 25 minutes Cassandra Dumont [facility] Start: 12-18-2021 End: 12-18-2021 ambulatory Siobhanjuan m Meyers Other [employer] Other Start: 12-18-2021 Office outpatient vi sit 25 minutes Siobhan Luigi [facility] Start: 07-30-2021 End: 10-29-2021 Patient encounter procedure MORALES ANGULO [facility] Start: 01-13-2021 End: 01-14-2021 Emergency department patient visit [facility] Start: 01-13-2021 End: 01-13-2021 Emergency department patient visit Tita Edwards MD Work Phone: [facility] ED Comment on above: Chest pain, unspecif ied type (Primary Dx); Anxiety state Procedures Date Procedure Procedure Detail Performing Clinician Start: 01-13-2021 Ct angiography chest w/contrast/noncontrast Tita [...] (2 - Td or Tdap) [facility] Work Phone: Start: 07-16-2030 Tetanus vaccination Tetanus (Td or Tdap) Booster [facility] Start: 11-28-2028 Cholesterol [Mass/volume] in Serum or Plasma Cholesterol [facility] Start: 11-10-2026 Screening for malignant neoplasm of colon Cologuard (Stool DNA) [facility] Start: 06-06-2024 End: 06-06-2024 Patient encounter procedure 06/06/2024 10:40 AM EST Procedure Visit [facility] [address] [place] [address] Pasquale Rosa, MAGO [address] [facility] [facility] [place] [place] [address] [facility] Start: 02-25-2024 End: 02-25-2024 Patient encounter procedure 02/25/2024 11:00 AM EDT Procedure Visit [facility] [address] [place] [address] Pasquale Rosa DDS [address] [place] [address] [facility] Start: 02-18-2024 End: 02-18-2024 Patient encounter procedure 02/18/2024 10:00 AM EDT Procedure Visit [facility] [address] [place] [address] Emory Devlin DDS [address] [place] [address] [facility] Start: 12-21-2023 End: 12-21-2023 Patient encounter procedure 12/21/2023 11:00 AM EDT Procedure Visit [facility] [address] [place] [address] Emory Devlin DDS [address] [place] [address] [facility] Start: 11-12-2023 Screening for malignant neoplasm of colon CRC Screening [facility] Start: 09-15-2023 End: 09-15-2023 Patient encounter procedure 09/15/2023 10:50 AM EST Procedure Visit [facility] [address] [place] [address] Pasquale Rosa DDS [address] [place] [address] [facility] Start: 2023 Hepatitis B (HBV) Vaccine (optional start 60+ years) Hepatitis B (HBV) Vaccine (optional start 60+ years) [facility] Start: 2023 RSV vaccine (optional 60+ years) RSV vaccine (optional 60+ years) [facility] Start: 03-26-2023 COVID-19 Vaccine ( season) COVID-19 Vaccine ( season) [facility] Start: 03-26-2023 Influenza vaccination Influenza Vaccine (#1) [facility] Start: 03-26-2021 Influenza vaccination Flu vaccine (Season Ended) [employer] Phone: Start: 2013 Screening for malignant neoplasm of breast Breast cancer screen [employer] Phone: Start: 2013 Screening for malignant neoplasm of colon Colon cancer screen colonoscopy [employer] Phone: Start: 2013 Shingles (RZV) Vaccine (1 of 2) Shingles (RZV) Vaccine (1 of 2) [facility] Start: 2013 Shingles Vaccine (1 of 2) Shingles Vaccine (1 of 2) [employer] Phone: Start: 2008 Cholesterol [Mass/volume] in Serum or Plasma Cholesterol [facility] Start: 2008 Screening for malignant neoplasm of colon [facility] Start: 2003 Lipid panel Lipid screen [employer] Phone: Start: 2003 Screening for malignant neoplasm [...] 1975 COVID-19 Vaccine (1) COVID-19 Vaccine (1) [employer] Phone: Start: 1963 COVID-19 Vaccine (#1) COVID-19 Vaccine (#1) [facility] Start: 1963 Hepatitis C screening [facility]atitis C screen [facility] Phone: Start: 1963 Screening for malignant neoplasm of colon [facility] EKG 12 Lead EKG 12 Lead ECG Routine 01/13/2021 7:37 PM EDT [facility] Work Phone: Immunizations Immunization Date Immunization Notes Care Provider Fa cility 05-26-2021 influenza, injectabl e, quadrivalent, preservative free Maribel Waylon DDS Work Phone: [facility] 07-16-2020 tetanus toxoid, redu lima diphtheria toxoid, and acellular pertussis vaccine, adsorbed Maribel Waylon DDS Work Phone: [facility] Payers Date Payer Category Payer Unknown SP/UNINSURED [facility] FIN[employer] EVALUATION 2023-Present Other [id number] 2020 Medicaid [id number] 1963 Unknown [id number] 1963 Unknown [id number] 1963 Unknown [id number] 1963 Unknown [id number] 1963 Unknown [id number] 1963 Unknown [id number] 1963 Unknown [id number] 1963 Unknown [id number] 1963 Unknown [id number] [id number] 1963 Unknown [id number] [id number] 1963 Unknown [id number] 1963 Unknown [id number] 1963 Unknown [id number] 1959 Medicaid [id number] Social History Date Type Detail Facility Start: 01-13-2021 Tobacco smoking stat [facility] Never smoker [employer] Phone: Start: 01-13-2021 Tobacco use and exposure Never used [employer] Start: 01-13-2021 Alcohol intake Lifetime non-d melchor (finding) [employer] Phone: Start: 01-13-2021 History SDOH Alcohol Frequency 1 [employer] Work Phone: Start: 01-13-2021 Alcohol Comment occasional [employer] Work Phone: Start: 1965 Sex Assigned At Not on file M [employer] Work Phone: Exposure to SARS-CoV -2 (event) Not sure [employer] Sex Assigned At Female [facility] Tobacco smoking stat [facility] Tobacco smoking consumption unknown [facility] Start: 1965 [facility] Assigned At [facility] Clinical Notes 12-18-2021 to 03-15-2024 Elba Elkins, DDS - 12/21/2023 11:02 AM EDTGluisMaribel miller, DDS - 12/14/2023 11:08 AM EDT Note Date & Type Note Facility 03-15-2024 Note Cardiovascular Medic [facility] SUBJECTIVE Dayana Severino is a 58 y.o. female who is seen for palpitations, here for follow-up. HPI PMHx: DM type II, HTN, HLD, fatty liver disease Patient presents for follow-up. Overall, patient states that she is doing well. Her palpitations are significantly improved. They are almost completely resolved. She may get a single palpitation every week or every other week. Otherwise, no sustained palpitations. She denies any chest pain. She denies any shortness of breath. She does have left upper extremity pain, but this is musculoskeletal. It is painful to palpation, it has affected her range of motion, and she cannot sleep on that arm. No angina or anginal equivalents. 01/05/2023 After last visit we had increased [...] syncope. Last HPI per Dr. Burns (10/30/2022): Dayana Severino is a 57 y.o. female with [...] week Drug use: Never No Known Allergies Cardiology ROS: 10 point ROS is performed and is negative unless otherwise specified in HPI. OBJECTIVE Visit Vitals BP 126/76 (BP Location: Left arm, Patient Position: Sitting) Pulse 75 Ht 1.575 m (5' 2 ) Wt 87.5 kg (193 lb) SpO2 98% BMI 35.30 kg/m??? Smoking Status Never BSA 1.96 m??? Medications: Current Outpatient Medications: adalimumab (Humira,CF, Pen Oujs-Qq-Copf HS) 80 mg/0.8 mL-40 mg/0.4 mL pen injector kit pen-injector starter kit, Inject 80 mg (contents of one pen) under the skin on day 1. Inject 40 mg (contents of one pen) under the skin on day 8 and day 22., Disp: , Rfl: aspirin 81 mg chewable tablet, Chew 81 mg in the morning., Disp: , Rfl: carvedilol (Coreg) 12.5 mg tablet, TAKE 1 TABLET (12.5 MG) BY MOUTH WITH BREAKFAST AND EVENING MEAL, Disp: 180 tablet, Rfl: 3 DULoxetine (Cymbalta) [address] capsule, Take 20 mg by mouth in the morning. Do not crush or chew., Disp: , Rfl: hydrOXYzine pamoate (Vistaril) 25 mg capsule, TAKE 1 CAPSULE BY MOUTH TWICE A DAY NEEDED, Disp: , Rfl: levothyroxine (Synthroid, Levoxyl) 75 mcg tablet, TAKE 1/2 A TABLET BY MOUTH IN THE MORNING ON AN EMPTY STOMACH, Disp: , Rfl: metFORMIN (Glucophage) 500 mg tablet, TAKE 1 TABLET BY MOUTH EVERY DAY WITH A MEAL FOR 90 DAYS, Disp: , Rfl: SITagliptin phosphate (Januvia) 25 mg tablet, Take 25 mg by mouth in the morning., Disp: , Rfl: Physical Exam Vitals reviewed. Constitutional: Appearance: Normal appearance. She is normal weight. HENT: Head: Normocephalic and atraumatic. Right Ear: External ear normal. Left Ear: External ear normal. (more content not included)... [facility] 12-21-2023 History of Present illness Narrative ----- Thursday, December 21, 2023 at 11:49:45 AM ----- ----- Provider: [id number] Elkins, Resident -- Clinic: [place] ----- COMPOSITE ROMAN CATHOLIC Patient is scheduled for Adventism on tooth #9 surface F5. Reviewed Medical History. Pt exhibited the following conditions: No significant medical history Patient is ready for treatment. Topical Benzocaine gel applied at the injection site for 2 minutes. Administered 1 carpules of Lidocaine, 2% with Epinephrine 1:100,000,. isolation achieved. Decay/existing buddhist removed, cavity prepared. Selectively etched enamel with 37% phosphoric acid, rinsed, and blot dried. OptiBond hills applied and light-cured. Condensed packable composite shade A3 in light cured increments using Retraction cord with hemostatic gel Finished with finishing burs, checked occlusion, verified proximal contacts and buddhist was polished. Rinsed and suctioned intraorally, advised patient to not eat until local anesthesia wears off. POST OPERATIVE Periapical (single) RADIOGRAPH TAKEN. Next Visit: Restorative ----- Signed on Thursday, December 21, 2023 at 3:48:00 PM ----- ----- Provider: [id number] - Chelsea Sun DDS -- Clinic: [place] ----- documented in this encounter [facility] 12-14-2023 History of Present illness Narrative ----- Thursday, December 14, 2023 at 12:33:43 PM ----- ----- Provider: [id number] Resident Avi -- Clinic: [place] ----- COMPOSITE ROMAN CATHOLIC Patient is scheduled for Adventism on tooth #18 surface DO. Reviewed Medical History. Pt exhibited the following conditions: No significant medical history Patient is ready for treatment. Topical Benzocaine gel applied at the injection site for 2 minutes. Administered 1 carpules of Lidocaine, 2% with Epinephrine 1:100,000,. Cotton roll isolation achieved. Decay/existing buddhist removed, cavity prepared. Selectively etched enamel with 37% phosphoric acid, rinsed, and blot dried. Xeno IV hills applied and light-cured. Condensed packable composite shade A2 in light cured increments using [employer]. Finished with finishing burs, checked occlusion, verified proximal contacts and buddhist was polished. Rinsed and suctioned intraorally, advised patient to not eat until local anesthesia wears off. POST OPERATIVE Periapical (single) RADIOGRAPH TAKEN. Next Visit: Mercedes ----- Signed on Thursday, December 14, 2023 at 2:29:42 PM ----- ----- Provider: [id number] - Pasquale Martin DDS -- Clinic: [place] ----- documented in this encounter [facility] 09-10-2023 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 Still gets intermittent skips . Denies chest pain, SOB, and lightheadedness/syncope. Review of Systems Cardiovascular: Positive for irregular heartbeat and palpitations. All other systems reviewed and are negative. [facility] 09-10-2023 Note Cardiovascular Medic [facility] SUBJECTIVE Dayana Severino is a 58 y.o. female who [...] syncope. Last HPI per Dr. Burns (10/30/2022): Dayana Severino is a 57 y.o. female with [...] Left lower l (more content not included)... [facility] 07-30-2023 Note Cardiovascular Medic [facility] SUBJECTIVE Dayana Severino is a 58 y.o. female who [...] syncope. Last HPI per Dr. Burns (10/30/2022): Dayana Severino is a 57 y.o. female with [...] Behavior: Behavior anna (more content not included)... [facility] 07-30-2023 Note Review of Systems Cardiovascular: Positive for palpitations. Palpitaions every now and then pt feels well Pt also started januvia and cymbolta [facility] 06-16-2023 Evaluation note Encounter Date Diagnosis Assessment [...] no improvement in 2 to 3 days [employer] Other 03-20-2023 NoteCARDIAC STRESS TEST Requesting Physician: Procedure Date:10/13/2022 [...] portion is negative for ischemia.[id number] Evaluation note* Encounter Date Diagnosis Assessment Notes [...] frequently. Aug, Sore throat (ICD-10 - J02.9) 26 Feb, 2023 Other infective acute otitis externa of both ears (ICD-10 - H60.393) Symptoms of laryngitis is caused by viruses. Salt water gargles may help with discomfort. Take medications as directed. Cool mist humidifier, steaming up bathroom with shower may help with symptom relief. Follow up with primary care provider if no improvement of symptoms [employer] Other 12-06-2022 Evaluation note* Encounter Date Diagnosis [...] other viral communicable diseases (ICD-10 - Z20.828) [employer] Other 05-26-2022 Evaluation note* Encounter Date Diagnosis Assessment Notes Treatment Notes Treatment Clinical Notes November, Cough (ICD-10 - R05.9) November, COVID-19 (ICD-10 - U07.1) Today you tested positive for the COVID virus. This mean you need to follow all CDC quarantine guidelines found at [email or web address]. It is important to rest, increase [...] UP AND WHEN TO SEEK EMERGENCY TREATMENT [facility] Other Evaluation + Plan note No data available for this section [facility] Diagnosis Chest pain, unspecified type- Primary Anxiety state Anxiety state, unspecified [facility]* Diagnosis Onset Date Resolution Status Anxiety acute Bilateral foot pain acute Diabetes acute HTN (hypertension) acute Onychomycosis acute Psoriasis (a type of skin inflammation) acute [facility] Work Phone: History general Narrative - Reported* Type Description Date Medical History Anxiety Medical History HTN (hypertension) Surgical History ablasion uterine [facility] [employer] Other History general Narrative - Reported* Type Description Date Medical History Anxiety Medical History HTN (hypertension) Surgical History ablasion uterine Hospitalization History Kidney Infection 1994 Hospitalization History chest pain 2022 [facility] Other Hospital Discharge instructions* Attachments The following attachments cannot be sent through Care Everywhere. * Chest Pain (Rwandan) * Anxiety Disorder ([place]wandan) [facility] Phone: Hospital Discharge instructions No data available for this section [facility] Summary Purpose Family History Relationship Condition Age at Onset Recorded Date/T mar father Diabetes mellitus Unknown Unknown mother Hypertension Unknown Advance Directives Advance Directive Response Recorded Date/ Time Advance Directives No March 7:54am Chief Complaint and Reason for Visit Chief Complaint est care Reason for Visit Anxiety Bilateral foot pain Diabetes HTN (hypertension) Onychomycosis Psoriasis (a type of skin inflammation) Additional Source Comments Reason for Visit (unrecogniz [...] 1 dose 2118 (Given - Provid er: Leonilajeannine gallegosAbdullahi) INFORMATION SOURCE (unrecogn ized section and content) DATE CREATED AUTHOR 01/14/2021 [facility] DATE CREATED AUTHOR AUTHOR'S ORGANIZ ATION 02/11/2022 [facility] DATE CREATED AUTHOR AUTHOR'S ORGANIZ ATION 10/15/2022 [facility] DATE CREATED AUTHOR AUTHOR'S ORGANIZ ATION 11/20/2023 [facility] DATE CREATED AUTHOR AUTHOR'S ORGANIZ ATION 12/27/2023 [facility] DATE CREATED AUTHOR AUTHOR'S ORGANIZ ATION 03/17/2024 [facility] DATE CREATED AUTHOR AUTHOR'S ORGANIZ ATION 04/06/2024 [facility] DATE CREATED AUTHOR AUTHOR'S ORGANIZ ATION 04/09/2024 [facility] Care Teams (unrecognized sec tion and content) Team Status: Active Member Role Status Dates NON STAFF Primary Care Provider Active Team Status: Active Member Role Status Dates NON STAFF Primary Care Provider Active Start: March 03, 2024 Gary Owens DO Attending Provider Active Sta rt: March 03, 2024 Team Status: Inactive Member Role Status Dates NON STAFF Primary Care Provider Active Start: April 19, 2024 End: April 19, 2024 Kymberly Banegas APRN ENGINEERING MANAGER-C Attending Provider Active Start: March End: April 19, 2024 Goals (unrecognized section and content) Goals may be documented in a n alternate section FOR RECORDS PERTAINING TO PATIENTS WHO ARE [...] BE BASED ON THE PRIMARY CLINICAL RECORDS. [facility]. provides no warranty or guarantee of the accuracy or completeness of information in this document.
[2024-04-25 12:48] LABS: Free T4 0.94 ng/dL (0.76-1.46)
== END 2024-04-25 11:45 | disposition home or self-care (01) ==
LOC: LAB 11:47
PROVIDERS: PCP Nurse Practitioner; Visit Provider Nurse Practitioner
DX: E03.9 Hypothyroidism, unspecified (principal)
CPT/HCPCS: 36415; 84439; 84443

== ENCOUNTER 2024-06-02 14:26 | Outpatient (OUT) | payer OTHER, SELFPAY ==
--- OUTSIDE RECORDS SUMMARY | 2024-06-02 14:37 | XMS_ITS | CCD ---
Author Organization [facility] Care Team Providers Care Steel Spar Operator Name Role Phone Unavailable Primary Care Provider Unavailabl e TITA EDWARDS Attending Unavailable KEV, MORALES CHENORSAND Primary Care Physician [phone] Siobhan Meyers Unavailable Cassandra Dumont Unavailable DR ROMAIN CAN Consulting Unavailabl e ROSE MARIE ., FELIBERTO Attending Unavailable REQUEST, DR NONE LISTED Primary Care Unavaila ble ROSE MARIE ., FELIBERTO Admitting Unavailable DR MATTHEW WINN Consulting Unavailable ARLINTERESSA MOREL Consulting Unavailable ROSE MARIE ., FELIBERTO Consulting Unavailable Unavailable Primary Care Provider Unavailabl e Samra Wick Unavailable PROVIDER, UNKNOWN Admitting Unavailable ALEJANDRA GOLDEN Attending Unavaila ble PROVIDER, UNKNOWN Admitting Unavailable AMINA MAC Attending Unavailable PROVIDER, UNKNOWN Admitting Unavailable MARIBEL CONNORS Attending Unavailable PROVIDER, UNKNOWN Admitting Unavailable ELBA ELKINS Attending Unavailable PACHECO BURNS Attending Unavailable ALGHOPACHECO MORENO Attending Unavailable PACHECO BURNS Attending Unavailable EMPERATRIZ CRANE Admitting Unavailable EMPERATRIZ CRANE Attending Unavailable MITCHELL TELLEZ Referring Unavailable KHORSAND KEV, MORALES Primary Care Unavailabl e MITCHELL TELLEZ Referring Unavailable KHORSAND KEV, MORALES Primary Care Unavailabl e MITCHELL TELLEZ Attending Unavailable SAPMITCHELL CHESTER Referring Unavailable KHORSAND KEV, MORALES Primary Care Unavailabl e Andi GLUING MACHINE FEEDER, Cassidy Unavailable CHRIS MADSEN Attending Unavailable CHRIS MADSEN Attending Unavailable DAYANA WOODARD Attending Unavailable CHRIS MADSEN Attending Unavailable Allergies Allergy Classification Reported Allergen(s) Allergy Type Date of Onset Reaction(s) Facility (6 sources) Black Pepper-Turmeric Drug Allergy 11-18-2023 [facility] Healthcare Work Phone: Medications Current Medications Medication Drug Class(es) Dates Sig (Normalized) Sig (Original) 0.4 ml adalimumab 100 mg/ml auto-injector (11 sources) Tumor Necrosis Factor Ann Start: 05-03-2024 Humira, 2 Pen, 40 MG/0.4ML Auto-injector Kit 05/03/2024 Active Start: 09-28-2023 End: 05-01-2024 Humira, 2 Pen, 40 MG/0.4ML P en-injector Kit pen-injector Indications: Plaque Psoriasis Inject 1 pen (40 mg) under the skin every 14 (fourteen) days 2 each 09/28/2023 05/01/2024 Discontinued (Med list cleanup) Start: 09-09-2023 adalimumab (Hu harpreet-Psoriasis/Uveit Starter) 80 MG/0.8ML & 40MG/0.4ML Pen-injector Kit pen-injector starter kit Indications: Plaque Psoriasis Inject 80 mg (contents of one pen) under the skin on day 1. Inject 40 mg (contents of one pen) under the skin on day 8 and day 22. 3 each 09/09/2023 Active [id number] 200 actuat albuterol 0.09 mg/actuat metered dose inhaler (3 sources) beta2-Adrenergic Agonist Start: 03-28-2023 End: 05-01-2024 take 1-2 puff(s) by inhalation every four to six hours as needed albuterol HFA 90 mcg/act inhaler TAKE 1-2 PUFFS BY INHALATION ROUTE USING EVERY 4-6 HOURS NEEDED 03/28/2023 05/01/2024 Discontinued (Med list cleanup) aspirin 81 mg delayed release oral tablet (7 sources) Platelet Aggregation Inhibitor, Nonsteroidal Anti-inflammatory Drug Start: 04-19-2024 take 81 mg by mouth once daily Aspirin Active 81 MG PO Daily April 19, 2024 12:00am aspirin 81 MG ch ewable tablet Chew 81 mg in the morning. Active carvedilol 12.5 mg oral tablet (8 sources) alpha-Adrenergic Ann, beta-Adrenergic Ann Start: 04-19-2024 take 12.5 mg by mouth twice daily at mealtime Carvedilol Active 12.5 MG PO Twice daily April 19, 2024 12:00am must administer with a meal/food Carvedilol Activ e cetirizine hydrochloride 10 mg oral tablet (3 sources) Histamine-1 Receptor Antagonist Start: 06-22-2023 End: 05-01-2024 cetirizine (ZyrTEC) 10 MG tablet 1 (one) time each day at the same time 06/22/2023 05/01/2024 Discontinued (Med list cleanup) ciclopirox 80 mg/ml topical solution (6 sources) Start: 04-19-2024 ciclopirox (Pe nlac) 8 % solution APPLY TO AFFECTED AREA TOPICALLY DAILY AT BEDTIME FOR 4 WEEKS 04/19/2024 Active Start: 04-19-2024 Ciclopirox Act mohini 1 APPLIC TOPICAL Daily at bedtime 6.6 April 19, 2024 12:00am clobetasol propionate 0.5 mg/ml topical cream (6 sources) Corticosteroid Start: 05-26-2023 clobetasol (Te movate) 0.05 % cream 1 Application every 12 (twelve) hours 05/26/2023 Active cyclobenzaprine hydrochloride 10 mg oral tablet (3 sources) Muscle Relaxant Start: 06-22-2023 End: 05-01-2024 cyclobenzaprine (Flexeril) 10 MG tablet 1 (one) time each day at the same time 06/22/2023 05/01/2024 Discontinued (Med list cleanup) DULoxetine 60 mg delayed release oral capsule (7 sources) Serotonin and Norepinephrine Reuptake Inhibitor Start: 06-29-2023 DULoxetine (Cymbalta ) [address] capsule 1 (one) time each day at the same time 06/29/2023 Active escitalopram 10 mg oral tablet (4 sources) Serotonin Reuptake Inhibitor Start: 10-30-2022 End: 05-01-2024 escitalopram (Lexapro) 10 MG tablet TAKE 1 TABLET BY MOUTH EVERY DAY FOR 90 DAYS for 90 10/30/2022 05/01/2024 Discontinued (Med list cleanup) Escitalopram Oxa late 10 MG Oral for 90 Active famotidine 20 mg oral tablet (6 sources) Histamine-2 Receptor Antagonist famotidine (Pepcid) 20 MG tablet 1 (one) time each day at the same time Active hydroCHLOROthiazide 12.5 mg / losartan potassium 50 mg oral tablet (4 sources) Thiazide Diuretic, Angiotensin 2 Receptor Ann Start: End: 024 take 1 tablet by mouth in the morning losartan-hydroCHLOR Othiazide (Hyzaar) 50-12.5 MG tablet Take 1 tablet by mouth in the morning. 11/28/2022 05/01/2024 Discontinued (Med list cleanup) take 1 tablet by bambi th every twenty-four hours Losartan Potassium-HCTZ 50-12.5 MG 1 tab let Orally Once a day Active Hydrochlorothiazide-12.5 mg 12.5 mg (2 sources) take 1 tablet by mouth once daily Hydrochlorothiazide-12.5 mg 12.5 mg 1 tablet Orally Once a day Active hydrocortisone 10 mg/ml / neomycin 3.5 mg/ml / polymyxin b 31135 unt/ml otic solution (1 source) Aminoglycoside Antibacterial, Polymyxin-class Antibacterial, Corticosteroid Sta rt: 3 Yxxujnwv-Ivpiyiikj-IJ [id number] 4 drops into affected ear Otic Three times a day for 7 day(s) Aug, Active hydrOXYzine (1 source) Antihistamine hydrOXYzine HCl Active levothyroxine sodium 0.075 mg oral capsule (6 sources) l-Thyroxine Sta rt: 4 take 75 ug by mouth once daily Levothyroxine Active 75 MCG PO Daily April 19, 2024 12:00am Start: 01-23-2024 levothyroxine (Synthroid, Levoxyl) 75 MCG tablet TAKE 1/2 A TABLET BY MOUTH IN THE MORNING ON AN EMPTY STOMACH 01/23/2024 Active Losartan (1 source) Angiotensin 2 Receptor Ann Losartan Potassium Active metFORMIN hydrochloride 500 mg oral tablet (7 sources) Biguanide Start: 4 take 500 mg by mouth once daily Metformin Active 500 MG PO Daily April 19, 2024 12:00am take 1 tablet by bambi th twice daily at mealtime metFORMIN (Glucophage) 500 MG tablet GREY E 1 TABLET BY MOUTH TWICE A DAY WITH A MEAL FOR 30 DAYS Active omeprazole 20 mg delayed release oral capsule (6 sources) Proton Pump Inhibitor Start: 04-19-2024 take 20 [...] November, Active SITagliptin 100 mg oral tablet (8 sources) Dipeptidyl Peptidase 4 Inhibitor Start: 04-19-2024 take 1 tablet by mouth once daily Sitagliptin Phosphate (Januvia) 100 mg tablet Active 100 MG PO Daily April 19, 2024 12:00am Januvia Active triamcinolone acetonide 1 mg/ml topical cream (6 sources) Corticosteroid Start: 11-18-2023 triamcinolone (Kenalog) 0.1 % cream Indications: Psoriasis vulgaris (CMS/HCC) Apply to affected areas, up to twice a day when flared, do not use one the face, groin, or underarms, 30 day supply 80 g 11/18/2023 Active Completed/Discontinued Medications Medication Drug Class(es) Dates Sig (Normalized) Sig (Original) iopamidol (ISOVUE-370) 76 % injection 100 mL (1 source) Start: 1 End: 1 iopamidol (ISOVUE-370) 76 % injection 100 mL 1 ml methylPREDNISolone acetate 40 mg/ml injection (5 sources) Corticosteroid Start: 4 End: 4 methylPREDNISolone acetate (DEPO-Medrol) injection 40 mg Start: 05-01-2024 End: 05-01-2024 40 mg, Intra-articular, Once PRN Procedure, Starting on Wed05/01/24 at 1156, For 1 dose Start: 09-20-2022 methylPREDNISo lone 4 MG as directed Orally Once a day for 6 days Aug, Active Problems Active Problems Problem Classification Problem Date Documented Date Episodic/Chronic Anxiety disorders (3 sources) Anxiety state; [...] Translations: [Chest pain, unspecified] Onset: 10-12-2022 Episodic Osteoarthritis (2 sources) Arthritis of left acromioclavicular joint; Translations: [Primary osteoarthritis, left shoulder] 04-28-2024 Chronic Other aftercare (1 source) Other ad terminal makeup operator (current) drug therapy; Translations: [OTH BRONZE CHASER CURRENT DRUG THERAPY] Onset: 10-15-2022 Episodic Other aftercare (2 sources) Taking high risk medication; Translations: [Other ad terminal makeup operator (current) drug therapy] 05-22-2024 Episodic Other connective tissue disease (1 source) Impingement syndrome of left shoulder; Translations: [Impingement syndrome of left shoulder] Onset: 04-04-2024 Episodic Other connective tissue disease (1 source) Foot pain; Translations: [Pain in right foot] 04-19-2024 Episodic Other connective tissue disease (1 source) Pain in right foot; Translations: [Pain in limb] 04-19-2024 Episodic Other connective tissue disease (2 sources) Tendonitis of left shoulder; Translations: [Other enthesopathies, not elsewhere classified] 04-28-2024 Episodic Other connective tissue disease (2 sources) Adhesive capsulitis of left shoulder; Translations: [Adhesive capsulitis of left shoulder] 04-28-2024 Episodic Other ear and sense organ disorders (1 source) Other infective otitis externa, bilateral Episodic Other ear and sense organ disorders (1 source) Impacted cerumen, left ear Episodic Other inflammatory condition of skin (1 source) Psoriasis; Translations: [Psoriasis, unspecified] 04-19-2024 Chronic Other inflammatory condition of skin (1 source) Psoriasis, unspecified; Translations: [Other psoriasis] 04-19-2024 Chronic Other inflammatory condition of skin (2 sources) Psoriasis vulgaris; Translations: [Psoriasis vulgaris] 05-22-2024 Chronic Other inflammatory condition of skin (2 sources) Psoriatic arthritis; Translations: [Arthropathic psoriasis, unspecified] 05-22-2024 Chronic Other liver diseases (1 source) Abnormal levels of other serum enzymes; Translations: [ABNORMAL LEVELS OTHER SERUM ENZYMES] Onset: 10-15-2022 Episodic Other lower respiratory disease (4 sources) Cough; Translations: [Cough] Episodic Other non-traumatic joint disorders (2 sources) Pain in left shoulder; Translations: [Pain in joint, shoulder region] 04-28-2024 Episodic Other screening for suspected conditions (not [...] Test Name Value Interpretation Reference Range Facility No Panel Informationon 05-01 Dayana WoodardZAIN 05/01/2024 11:57 AM L Inj/Asp: L subacromial bursa on 05/01/2024 11:56 AM Indications: pain Details: 20 G needle, posterior approach Medications: 40 mg methylPREDNISolone acetate 40 MG/ML Utilizing aseptic technique with universal precautions . Pt given injection Left Shoulder SA space Procedure, treatment alternatives, risks and benefits explained, specific risks discussed. Consent was given by the patient. Patient was prepped and draped in the usual sterile fashion. Replaced by [facility] MR SHOULDER LT WO CONTon MR SHOULDER [...] suggest adhesive capsulitis. Approved by Resident: Pablo eHnao MD on 04/05/2024 2:21 PM I, Bill Ma MD have personally reviewed the image(s) and agree with and/or edited the report Finalized by Bill Ma MD on 04/06/2024 4:12 PM Normal [facility] Glucose, Whole Bloodon 03-31 Glucose [Mass/Vol] 212 mg/dL High 74-100 [facility] Surgical Pathology Reporton 03-31-2024 Surgical Pathology Report (NOTE) Path Number: [id number] -- Diagnosis -- A. SIGMOID COLON POLYP, [...] x 0.3 x 0.3 cm. Entirely 1cs. jj kb Lester Lewis/tb1:04/04/2024 Microscopic Description A, B. Microscopic examination performed. Processing Lab: [place] [address] Interpretation Performed at [place] [address] SURGICAL PATHOLOGY CONSULTATION Patient Name: DAYANA SEVERINO [facility] Rec: [id number] [facility] [email or web address] [facility] [employer] ANATOMIC PATHOLOGY [facility]. [address] Normal [facility] Office Visiton 03-15-2024 Follow-up visit [id number] MaycolDayana Pollock 1965 F Date Provider Department Center 03/15/2024 [facility]8-PACHECO BURNS CARD Alfonso Hos Family History Problem Relation Age of Onset No Known Problems Mother No Known Problems Father No Known Problems Sister No Known Problems Brother Family Status - Relation Status Age at Mother Father Sister Brother Level of Service:37265 SD OFFICE/OUTPATIENT ESTABLISHED LOW MDM 20 MIN Normal [facility] Progress Noteson 12-21-2023 [employer] Authentication Interface Message Text ----- Thursday, December 21, 2023 at 11:49:45 AM ----- ----- Provider: [id number] Resident French -- Clinic: [place] ----- COMPOSITE RELIGIOUS Patient is scheduled for Mandaen on tooth #9 surface F5. Reviewed Medical History. Pt exhibited the following conditions: No significant medical history Patient is ready for treatment. Topical Benzocaine gel applied at the injection site for 2 minutes. Administered 1 carpules of Lidocaine, 2% with Epinephrine 1:100,000,. isolation achieved. Decay/existing bahai removed, cavity prepared. Selectively etched enamel with 37% phosphoric acid, rinsed, and blot dried. OptiBond hills applied and light-cured. Condensed packable composite shade A3 in light cured increments using Retraction cord with hemostatic gel Finished with finishing burs, checked occlusion, verified proximal contacts and bahai was polished. Rinsed and suctioned intraorally, advised patient to not eat until local anesthesia wears off. POST OPERATIVE Periapical (single) RADIOGRAPH TAKEN. Next Visit: Restorative ----- Signed on Thursday, December 21, 2023 at 3:48:00 PM ----- ----- Provider: [id number] - Chelsea Sun DDS -- Clinic: [place] ----- Normal [facility] [employer] [facility] Progress Noteson 12-14-2023 Hosiery Mater Authentication Interface Message Text ----- Thursday, December 14, 2023 at 12:33:43 PM ----- ----- Provider: [id number] - Resident Anahi -- Clinic: [place] ----- COMPOSITE RELIGIOUS Patient is scheduled for Mandaen on tooth #18 surface DO. Reviewed Medical History. Pt exhibited the following conditions: No significant medical history Patient is ready for treatment. Topical Benzocaine gel applied at the injection site for 2 minutes. Administered 1 carpules of Lidocaine, 2% with Epinephrine 1:100,000,. Cotton roll isolation achieved. Decay/existing bahai removed, cavity prepared. Selectively etched enamel with 37% phosphoric acid, rinsed, and blot dried. Xeno IV hills applied and light-cured. Condensed packable composite shade A2 in light cured increments using Automatrix. Finished with finishing burs, checked occlusion, verified proximal contacts and bahai was polished. Rinsed and suctioned intraorally, advised patient to not eat until local anesthesia wears off. POST OPERATIVE Periapical (single) RADIOGRAPH TAKEN. Next Visit: Mercedes ----- Signed on Thursday, December 14, 2023 at 2:29:42 PM ----- ----- Provider: [id number] - Pasquale Martin DDS -- Clinic: [place] ----- Normal [facility] [facility] Progress Noteson 10-22-2023 Hosiery Mater Authentication Interface Message Text ----- Sunday, October 22, 2023 at 12:00:23 PM ----- ----- Provider: [id number] - Amina Mac, Hygienist -- Clinic: [place] ----- [facility], Pt is ready for tx. Pt [...] RECALL/ 6months. Amina Gann RDH Normal [facility] [employer] [facility] Progress Noteson 09-15-2023 Hosiery Mater Authentication Interface Message Text ----- Friday, September 15, 2023 at 11:18:51 AM ----- ----- Provider: [id number] - Resident Dayday -- Clinic: [place] ----- INITIAL/COMPREHENSIVE EXAM Patient presents for an Initial Examination. [...] ----- Provider: Mark Martin DDS -- Clinic: [place] ----- Normal [facility] [facility] Office Visiton 09-10-2023 Follow-up visit [id number] Dayana Severino 1965 F Date Provider Department Center 09/10/2023 PACHECO GUILLORY Family History Problem Relation Age of Onset No Known Problems Mother No Known Problems Father No Known Problems Sister No Known Problems Brother Family Status - Relation Status Age at Mother Father Sister Brother Level of Service:72677 SD OFFICE/OUTPATIENT ESTABLISHED LOW MDM 20 MIN Normal [facility] Office Visiton 07-30-2023 Follow-up visit [id number] Dayana Severino 1965 F Date Provider Department Center 07/30/2023 PACHECO GUILLORY No family history on file Level of Service:93409 SD OFFICE/OUTPATIENT ESTABLISHED LOW MDM 20 MIN Normal [facility] COVID/FLU RT-PCRon 3 SARS-CoV-2 (COVID-19) RNA RIDGE+probe Ql (Unsp spec) Negative BNI Video Other COVID/FLU RT-PCR Negative Rigel [facility] AdorStyle Other CBC AUTO DIFFon 10-13-2022 BASO # 0.1 103/ul Normal 0.0-0.1 [facility] Comment on above: Performed By: #### P OCGLUC #### [facility] [address] [place] [address] [address] Gibson Jin Basophils/100 WBC (Bld) 1.0 % Normal 0.2-2.0 [facility] Comment on above: Performed By: #### P OCGLUC #### [facility] [address] [place] [address] [address] Gibson Jin EO # 0.2 103/ul Normal 0.0-0.7 [facility] Comment on above: Performed By: #### P OCGLUC #### [facility] [address] [place] [address] [address] Gibson Jin Eosinophils/100 WBC (Bld) 3.9 % Normal 0.9-7.0 [facility] Comment on above: Performed By: #### P OCGLUC #### [facility] [address] [place] [address] Dr. Gibson Jin Erythrocyte distribution width (RBC) [Ratio] 12.4 % Normal 11.0-15.0 [facility] Comment on above: Performed By: #### P OCGLUC #### [facility] [address] [place] [address] Dr. Gibson Jin Hematocrit (Bld) [Volume fraction] 43.4 % Normal 36.0-48.0 [facility] Comment on above: Performed By: #### P OCGLUC #### [facility] [address] [place] [address] Dr. Gibson Jin Hemoglobin (Bld) [Mass/Vol] 14.7 g/dL Normal 12.0-16.0 [facility] Comment on above: Performed By: #### P OCGLUC #### [facility] [address] [place] [address] Dr. Gibson Jin IG # 0.09 10e3/ul Critically high 0.00-0.03 [facility] Comment on above: Performed By: #### P OCGLUC #### [facility] [address] [place] [address] [address] Gibson Jin IG % 1.5 % Critically high 0.0-0.5 [facility] Comment on above: Performed By: #### P OCGLUC #### [facility] [address] [place] [address] Dr. Gibson Jin LYMPH # 1.2 103/ul Normal 1.2-3.8 [facility] Comment on above: Performed By: #### P OCGLUC #### [facility] [address] [place] [address] [address] Gibson Jin Lymphocytes/100 WBC (Bld) 19.4 % Critically low 20.5-60.0 [facility] Comment on above: Performed By: #### P OCGLUC #### [facility] [address] [place] [address] [address] Gibson Jin MANUAL DIFF REQ NO Normal [facility] Comment on above: Performed By: #### P OCGLUC #### [facility] [address] [place] [address] [address] Gibson Jin MCH (RBC) [Entitic mass] 30.2 pg Normal 26.7-34.0 [facility] Comment on above: Performed By: #### P OCGLUC #### [facility] [address] [place] [address] Dr. Gibson Jin MCHC (RBC) [Mass/Vol] 33.9 g/dL Normal 29.9-35.2 [facility] Comment on above: Performed By: #### P OCGLUC #### [facility] [address] [place] [address] [address] Gibson Jin MCV (RBC) [Entitic vol] 89.1 fL Normal 81.0-99.0 [facility] Comment on above: Performed By: #### P OCGLUC #### [facility] [address] [place] [address] [address] Gibson Jin MONO # 0.4 103/ul Normal 0.3-0.8 [facility] Comment on above: Performed By: #### P OCGLUC #### [facility] [address] [place] [address] Dr. Gibson Jin Monocytes/100 WBC (Bld) 6.9 % Normal 1.7-12.0 [facility] Comment on above: Performed By: #### P OCGLUC #### [facility] [address] [place] [address] Dr. Gibson Jin NEUT # 4.1 103/ul Normal 1.4-6.5 [facility] Comment on above: Performed By: #### P OCGLUC #### [facility] [address] [place] [address] [address] Gibson Jin Neutrophils/100 WBC (Bld) 67.3 % Normal 43.0-75.0 [facility] Comment on above: Performed By: #### P OCGLUC #### [facility] [address] [place] [address] [address] Gibson Jin Platelet mean volume (Bld) [Entitic vol] 10.3 fL Normal 9.5-13.5 [facility] Comment on above: Performed By: #### P OCGLUC #### [facility] [address] [place] [address] [address] Gibson Jin PLT 273 103/ul Normal 150-450 [facility] Comment on above: Performed By: #### P OCGLUC #### [facility] [address] [place] [address] Dr. Gibosn Jin RBC 4.87 106/ul Normal 4.20-5.40 [facility] Comment on above: Performed By: #### P OCGLUC #### [facility] [address] [address] [address] Gibson Jin WBC 6.1 103/ul Normal 4.0-11.0 [facility] Comment on above: Performed By: #### P OCGLUC #### [facility] [address] [place] [address] Dr. Gibson Jin ECHOCARDIO M/2D COMPLETEon 0 10-13-2022 ECHOCARDIO M/2D COMPLETE Patient: DAYANA SEVERINO Exam Date: 10/13/2022 : 1965 Gender:F Ordering : FEILBERTO TROTTER . Admission #: [id number] Family : Order #: [id number] CLICK HERE TO VIEW EXAM ECHOCARDIOGRAM REPORT [...] Mosquera M.D. on 10/13/2022 at 15:43 Normal [facility] GLYCOHEMOGLOBIN A1Con 2022 ADA RECOMMENDATION SEE BELOW Normal [facility] Comment on above: Result Comment: ADA RECOMMENDED LIMIT 4.0 - 6.0 ADA THERAPEUTIC TARGET < 7.0 ACTION SUGGESTED > 7.0 Performed By: #### A 1C #### [facility] [address] [place] [address] Dr. Gibson Jin Glucose [Mass/Vol] 197 mg/dL Normal [facility] Comment on above: Performed By: #### A 1C #### [facility] [address] [place] [address] Dr. Gibson Jin HbA1c (Bld) [Mass fraction] 8.5 % Critically high 4.5-6.2 [facility] Comment on above: Performed By: #### A 1C #### [facility] [address] [place] [address] Dr. Gibson Jin LIPID PROFILEon 10-13-2022 CHOL-HDL RATIO NORM SEE BELOW Normal [facility] Comment on above: Result Comment: 3.3 - 4.4 LOW RISK 4.4 - 7.1 AVERAGE RISK 7.1 - 11.0 MODERATE RISK >11.0 HIGH RISK Performed By: #### T SH, CMP, LIPID #### [facility] [address] [address] [address] Gibson Jin Cholesterol [Mass/Vol] 167 mg/dL Normal <=200 Th [facility] Comment on above: Performed By: #### T SH, CMP, LIPID #### [facility] [address] [address] [address] Gibson Jin Cholesterol in HDL [Mass/Vol] 45 mg/dL Normal 40-60 [facility] Comment on above: Performed By: #### T SH, CMP, LIPID #### [facility] [address] [address] [address] Gibson Jin Cholesterol in LDL [Mass/Vol] 93.4 mg/dL Normal [facility] Comment on above: Performed By: #### T SH, CMP, LIPID #### [facility] Laboratory [address] [address] [address] Gibson Jin Cholesterol.total/Chol esterol in HDL [Mass ratio] 3.7 {ratio} Normal [facility] Comment on above: Performed By: #### T SH, CMP, LIPID #### [facility] [address] [address] [address] Gibson Jin HDL NORMAL > or = 60 mg/dl - LO W CARDIOVASCULAR RISK <40 mg/dl - HIGH CARDIOVASCULAR RISK Normal [facility] Comment on above: Performed By: #### T SH, CMP, LIPID #### [facility] [address] [place] [address] Dr. Gibson Jin LDL CALC NORMAL SEE BELOW Normal [facility] Comment on above: Result Comment: <100 mg/dl OPTIMAL 100 - 129 mg/dl NEAR OR ABOVE OPTIMAL 130 - 159 mg/dl BORDERLINE HIGH 160 - 189 mg/dl HIGH >190 mg/dl VERY HIGH Performed By: #### T SH, CMP, LIPID #### [facility] [address] [address] [address] Gibson Jin Triglyceride [Mass/Vol] 143 mg/dL Normal <=150 [facility] Comment on above: Performed By: #### T SH, CMP, LIPID #### [facility] [address] [address] [address] Gibson Jin VLDL CALC 28.6 mg/dL Normal [facility] Comment on above: Performed By: #### T SH, CMP, LIPID #### [facility] [address] [address] [address] Gibson Jin NM STRESS/REST MULTIon 10-13 NM STRESS/REST MULTI Patient: DAYANA SEVERINO Exam Date: 10/13/2022 : 1965 Gender:F Ordering : TERES[facility] OLIVEROS [facility] Admission #: [id number] Family : FELIBERTO TROTTER . Order #: [id number] CLICK HERE TO VIEW EXAM RADIOLOGY REPORT [...] Winn M.D. on 10/13/2022 at 15:00 Normal [facility] POINT OF CARE GLUCOSEon 03-2 Glucose [Mass/Vol] 372 mg/dL Critically high 74-106 [facility] Comment on above: Performed By: #### P OCGLUC #### [facility] [address] [address] [address] Gibson Jin Glucose [Mass/Vol] 131 mg/dL Critically high 74-106 [facility] Comment on above: Performed By: #### P OCGLUC #### [facility] [address] [address] [address] Gibson Jin PROF 14(COMP METB)on 023 Albumin [Mass/Vol] 3.3 g/dL Critically low 3.4-5.0 [facility] Comment on above: Performed By: #### T SH, CMP, LIPID #### [facility] [address] [address] [address] Gibson Jin Albumin/Globulin [Mass ratio] 0.9 {ratio} Normal [facility] Comment on above: Performed By: #### T SH, CMP, LIPID #### [facility] [address] [address] [address] Gibson Jin ALP [Catalytic activity/Vol] 123 U/L Critically high 46-116 [facility] Comment on above: Performed By: #### T SH, CMP, LIPID #### [facility] [address] [address] [address] Gibson Jin ALT [Catalytic activity/Vol] 223 U/L Critically high 14-59 [facility] Comment on above: Performed By: #### T SH, CMP, LIPID #### [facility] [address] [address] [address] Gibson Jin Anion gap [Moles/Vol] 10.0 mmol/L Normal [facility] Comment on above: Performed By: #### T SH, CMP, LIPID #### [facility] [address] [address] [address] Gibson Jin AST [Catalytic activity/Vol] 113 U/L Critically high 15-37 [facility] Comment on above: Performed By: #### T SH, CMP, LIPID #### [facility] [address] [address] [address] Gibson Jin Bilirubin [Mass/Vol] 0.7 mg/dL Normal 0.2-1.0 [facility] Comment on above: Performed By: #### T SH, CMP, LIPID #### [facility] [address] [address] [address] Gibson Jin Calcium [Mass/Vol] 9.1 mg/dL Normal 8.5-10.1 [facility] Comment on above: Performed By: #### T SH, CMP, LIPID #### [facility] [address] [address] [address] Gibson Jin Chloride [Moles/Vol] 102 mmol/L Normal 98-107 [facility] Comment on above: Performed By: #### T SH, CMP, LIPID #### [facility] [address] [address] [address] Gibson Jin CO2 [Moles/Vol] 30.0 mmol/L Normal 21.0-32.0 [facility] Comment on above: Performed By: #### T SH, CMP, LIPID #### [facility] [address] [address] [address] Gibson Jin Creatinine [Mass/Vol] 0.73 mg/dL Normal 0.55-1.02 [facility] Comment on above: Performed By: #### T SH, CMP, LIPID #### [facility] [address] [place] [address] Dr. Gibson Jin EGFR-AF PALAUAN >60 Normal >=60 [facility] Comment on above: Performed By: #### T SH, CMP, LIPID #### [facility] [address] [place] [address] Dr. Gibson Jin EGFR-NON AF PALAUAN >60 Normal >=60 [facility] Comment on above: Performed By: #### T SH, CMP, LIPID #### [facility] [address] [place] [address] Dr. Gibson Jin Globulin (S) [Mass/Vol] 3.5 g/dL Normal [facility] Comment on above: Performed By: #### T SH, CMP, LIPID #### [facility] [address] [place] [address] Dr. Gibson Jin Glucose [Mass/Vol] 165 mg/dL Critically high 74-106 [facility] Comment on above: Performed By: #### T SH, CMP, LIPID #### [facility] [address] [place] [address] Dr. Gibson Jin Potassium [Moles/Vol] 4.0 mmol/L Normal 3.5-5.1 [facility] Comment on above: Performed By: #### T SH, CMP, LIPID #### [facility] [address] [address] [address] Gibson Jin Protein [Mass/Vol] 6.8 g/dL Normal 6.4-8.2 [facility] Comment on above: Performed By: #### T SH, CMP, LIPID #### [facility] [address] [address] [address] Gibson Jin Sodium [Moles/Vol] 138 mmol/L Normal 136-145 [facility] Comment on above: Performed By: #### T SH, CMP, LIPID #### [facility] [address] [address] [address] Gibson Jin Urea nitrogen [Mass/Vol] 14.0 mg/dL Normal 7.0-18.0 [facility] Comment on above: Performed By: #### T JENNIFER, CMP, LIPID #### [facility] [address] [place] [address] Dr. Gibson Jin Urea nitrogen/Creatinine [Mass ratio] 19.2 mg/mg Normal [facility] Comment on above: Performed By: #### T JENNIFER, CMP, LIPID #### [facility] [address] [place] [address] Dr. Gibson Jin TSHon 10-13-2022 TSH 3.011 uIU/mL Normal 0.358-3.740 [facility] Comment on above: Performed By: #### T JENNIFER CMP, LIPID #### [facility] [address] [place] [address] Dr. Gibson Jin US SINGLE QUAD RT [...] MATTHEW WINN Date: 2022-10-13 13:22 Normal [facility] CBC AUTO DIFFon 10-12-2022 BASO # 0.1 103/ul Normal 0.0-0.1 [facility] Comment on above: Performed By: #### C BC #### [facility] [address] [address] [address] Gibson Jin Basophils/100 WBC (Bld) 1.0 % Normal 0.2-2.0 [facility] Comment on above: Performed By: #### C BC #### [facility] [address] [address] [address] Gibson Jin EO # 0.2 103/ul Normal 0.0-0.7 [facility] Comment on above: Performed By: #### C BC #### [facility] [address] [address] [address] Gibson Jin Eosinophils/100 WBC (Bld) 2.2 % Normal 0.9-7.0 [facility] Comment on above: Performed By: #### C BC #### [facility] [address] [address] [address] Gibson Jin Erythrocyte distribution width (RBC) [Ratio] 12.1 % Normal 11.0-15.0 [facility] Comment on above: Performed By: #### C BC #### [facility] [address] [address] [address] Gibson Jin Hematocrit (Bld) [Volume fraction] 43.1 % Normal 36.0-48.0 [facility] Comment on above: Performed By: #### C BC #### [facility] [address] [address] [address] Gibson Jin Hemoglobin (Bld) [Mass/Vol] 15.1 g/dL Normal 12.0-16.0 [facility] Comment on above: Performed By: #### C BC #### [facility] [address] [address] [address] Gibson Jin IG # 0.06 10e3/ul Critically high 0.00-0.03 [facility] Comment on above: Performed By: #### C BC #### [facility] [address] [address] [address] Gibson Jin IG % 0.8 % Critically high 0.0-0.5 [facility] Comment on above: Performed By: #### C BC #### [facility] [address] [place] [address] Dr. Gibson Jin LYMPH # 1.5 103/ul Normal 1.2-3.8 [facility] Comment on above: Performed By: #### C BC #### [facility] [address] [place] [address] Dr. Gibson Jin Lymphocytes/100 WBC (Bld) 20.1 % Critically low 20.5-60.0 [facility] Comment on above: Performed By: #### C BC #### [facility] [address] [place] [address] Dr. Gibson Jin MANUAL DIFF REQ NO Normal [facility] Comment on above: Performed By: #### C BC #### [facility] [address] [place] [address] Dr. Gibson Jin MCH (RBC) [Entitic mass] 30.6 pg Normal 26.7-34.0 [facility] Comment on above: Performed By: #### C BC #### [facility] [address] [place] [address] Dr. Gibson Jin MCHC (RBC) [Mass/Vol] 35.0 g/dL Normal 29.9-35.2 [facility] Comment on above: Performed By: #### C BC #### [facility] [address] [place] [address] Dr. Gibson Jin MCV (RBC) [Entitic vol] 87.2 fL Normal 81.0-99.0 [facility] Comment on above: Performed By: #### C BC #### [facility] [address] [address] [address] Gibson Jin MONO # 0.5 103/ul Normal 0.3-0.8 [facility] Comment on above: Performed By: #### C BC #### [facility] [address] [address] [address] Gibson Jin Monocytes/100 WBC (Bld) 6.5 % Normal 1.7-12.0 [facility] Comment on above: Performed By: #### C BC #### [facility] [address] [address] [address] Gibson Jin NEUT # 5.0 103/ul Normal 1.4-6.5 [facility] Comment on above: Performed By: #### C BC #### [facility] [address] [place] [address] Dr. Gibson Jin Neutrophils/100 WBC (Bld) 69.4 % Normal 43.0-75.0 [facility] Comment on above: Performed By: #### C BC #### [facility] [address] [place] [address] Dr. Gibson Jin Platelet mean volume (Bld) [Entitic vol] 10.6 fL Normal 9.5-13.5 [facility] Comment on above: Performed By: #### C BC #### [facility] [address] [place] [address] Dr. Gibson Jin PLT 281 103/ul Normal 150-450 [facility] Comment on above: Performed By: #### C BC #### [facility] [address] [place] [address] Dr. Gibson Jin RBC 4.94 106/ul Normal 4.20-5.40 [facility] Comment on above: Performed By: #### C BC #### [facility] [address] [place] [address] Dr. Gibson Jin WBC 7.3 103/ul Normal 4.0-11.0 [facility] Comment on above: Performed By: #### C BC #### [facility] [address] [place], [place] [id number] Dr. Gibson Jin [facility] SARS-CoV-2 (COVID-19) RNA RIDGE+probe Ql (Unsp spec) Not detected Normal NOT DETECTED [facility] Comment on above: Result Comment: [...] for this test is supported by the [place] of [employer] and Human Service's declaration that [...] used). Performed By: #### P OCGLUC #### [facility] [address] [place] [address] Dr. Gibson Jin D-DIMERon 10-12-2022 D-DIMER 0.34 mg/L FEU Normal <=0.59 [facility] Comment on above: Performed By: #### P OCGLUC #### [facility] [address] [place] [address] Dr. Gibson Jin D-DIMER COMMENTS SEE BELOW Normal [facility] Comment on above: Result Comment: Incr eases [...] hospitalization. Performed By: #### P OCGLUC #### [facility] [address] [address] [address] Gibson Jin DRUG SCREEN RAPID (URINE)on 10-12-2022 AMP Negative Normal NEGATIVE [facility] Comment on above: Performed By: #### P OCGLUC #### [facility] [address] [address] [address] Gibson Jin BAR Negative Normal NEGATIVE [facility] Comment on above: Performed By: #### P OCGLUC #### [facility] [address] [address] [address] Gibson Jin BUP Negative Normal NEGATIVE [facility] Comment on above: Performed By: #### P OCGLUC #### [facility] [address] [place] [address] Dr. Gibson Jin BZO Negative Normal NEGATIVE [facility] Comment on above: Performed By: #### P OCGLUC #### [facility] [address] [place] [address] Dr. Gibson Jni CANDACE Negative Normal NEGATIVE [facility] Comment on above: Performed By: #### P OCGLUC #### [facility] [address] [address] [address] Gibson Jin CUT-OFFS SEE BELOW Normal [facility] Comment on above: Result Comment: AMP (Amphetamine): 500ng/mL, BAR (Barbituates): 200 ng/mL, BZO (Benzodiazepines): 150 ng/mL, BUP (Buprenorphine): 10 ng/mL, CANDACE (Cocaine): 150 ng/mL, mAMP (Methamphetamine): 500 ng/mL, MTD (Methadone): 200 ng/mL, OPI (Opiates): 100 ng/mL, OXY (Oxycodone): 100 ng/mL, PCP (Phencyclidine): 25 ng/mL, PPX (Propoxyphene): 300 ng/mL, THC (Cannabinoids): 50 ng/mL, TCA (Trycyclic Antidepressants): 300 ng/mL Performed By: #### P OCGLUC #### [facility] [address] [place] [address] Dr. Gibson Jin DRUG CUT HEADER DRUG CLASS TEST SYSTEM CUT-OFF CONCENTRATIONS ARE FOLLOWS: Normal [facility] Comment on above: Performed By: #### P OCGLUC #### [facility] [address] [address] [address] Gibson Jin mAMP Negative Normal NEGATIVE [facility] Comment on above: Performed By: #### P OCGLUC #### [facility] [address] [address] [address] Gibson Jin MTD Negative Normal NEGATIVE [facility] Comment on above: Performed By: #### P OCGLUC #### [facility] [address] [address] [address] Gibson Jin OPI Positive Abnormal NEGATIVE [facility] Comment on above: Performed By: #### P OCGLUC #### [facility] [address] [address] [address] Gibson Jin OXY Negative Normal NEGATIVE [facility] Comment on above: Performed By: #### P OCGLUC #### [facility] [address] [address] [address] Gibson Jin PCP Negative Normal NEGATIVE [facility] Comment on above: Performed By: #### P OCGLUC #### [facility] [address] [address] [address] Gibson Jin PPX Negative Normal NEGATIVE [facility] Comment on above: Performed By: #### P OCGLUC #### [facility] [address] [address] [address] Gibson Jin TCA Negative Normal NEGATIVE [facility] Comment on above: Performed By: #### P OCGLUC #### [facility] [address] [address] [address] Gibson Jin THC Negative Normal NEGATIVE [facility] Comment on above: Performed By: #### P OCGLUC #### [facility] [address] [address] [address] Gibson Jin POINT OF CARE GLUCOSEon 03-2 Glucose [Mass/Vol] 220 mg/dL Critically high 74-106 [facility] Comment on above: Performed By: #### P OCGLUC #### [facility] [address] [address] [address] Gibson Jin Glucose [Mass/Vol] 298 mg/dL Critically high 74-106 [facility] Comment on above: Performed By: #### P OCGLUC #### [facility] [address] [address] [address] Gibson Jin PROF 14(COMP METB)on 023 Albumin [Mass/Vol] 3.7 g/dL Normal 3.4-5.0 [facility] Comment on above: Performed By: #### C MP, HSTROPN #### [facility] [address] [place] [address] Dr. Gibson Jin Albumin/Globulin [Mass ratio] 1.0 {ratio} Normal [facility] Comment on above: Performed By: #### C KARLIE, HSTROPN #### [facility] [address] [place] [address] Dr. Gibson Jin ALP [Catalytic activity/Vol] 175 U/L Critically high 46-116 [facility] Comment on above: Performed By: #### C MP, HSTROPN #### [facility] [address] [address] [address] Gibson Jin ALT [Catalytic activity/Vol] 167 U/L Critically high 14-59 [facility] Comment on above: Performed By: #### C KARLIE, HSTROPN #### [facility] [address] [address] [address] Gibson Jin Anion gap [Moles/Vol] 10.6 mmol/L Normal [facility] Comment on above: Performed By: #### C MP, HSTROPN #### [facility] [address] [address] [address] Gibson Jin AST [Catalytic activity/Vol] 49 U/L Critically high 15-37 [facility] Comment on above: Performed By: #### C MP, HSTROPN #### [facility] [address] [place] [address] Dr. Gibson Jin Bilirubin [Mass/Vol] 0.4 mg/dL Normal 0.2-1.0 [facility] Comment on above: Performed By: #### C MP, HSTROPN #### [facility] [address] [address] [address] Gibson Jin Calcium [Mass/Vol] 9.1 mg/dL Normal 8.5-10.1 [facility] Comment on above: Performed By: #### C MP, HSTROPN #### [facility] [address] [address] [address] Gibson Jin Chloride [Moles/Vol] 102 mmol/L Normal 98-107 [facility] Comment on above: Performed By: #### C MP, HSTROPN #### [facility] [address] [address] [address] Gibson Jin CO2 [Moles/Vol] 26.8 mmol/L Normal 21.0-32.0 [facility] Comment on above: Performed By: #### C MP, HSTROPN #### [facility] [address] [address] [address] Gibson Jin Creatinine [Mass/Vol] 0.90 mg/dL Normal 0.55-1.02 [facility] Comment on above: Performed By: #### C MP, HSTROPN #### [facility] [address] [place] [address] Dr. Gibson Jin EGFR-AF PALAUAN >60 Normal >=60 [facility] Comment on above: Performed By: #### C MP, HSTROPN #### [facility] [address] [place] [address] Dr. Gibson Jin EGFR-NON AF PALAUAN >60 Normal >=60 [facility] Comment on above: Performed By: #### C MP, HSTROPN #### [facility] [address] [address] [address] Gibson Jin Globulin (S) [Mass/Vol] 3.6 g/dL Normal [facility] Comment on above: Performed By: #### C MP, HSTROPN #### [facility] [address] [place] [address] Dr. Gibson Jin Glucose [Mass/Vol] 288 mg/dL Critically high 74-106 [facility] Comment on above: Performed By: #### C MP, HSTROPN #### [facility] [address] [address] [address] Gibson Jin Potassium [Moles/Vol] 3.4 mmol/L Critically low 3.5-5.1 [facility] Comment on above: Performed By: #### C MP, HSTROPN #### [facility] [address] [address] [address] Gibson Jin Protein [Mass/Vol] 7.3 g/dL Normal 6.4-8.2 [facility] Comment on above: Performed By: #### C MP, HSTROPN #### [facility] [address] [place] [address] Dr. Gibson Jin Sodium [Moles/Vol] 136 mmol/L Normal 136-145 [facility] Comment on above: Performed By: #### C MP, HSTROPN #### [facility] [address] [address] [address] Gibson Jin Urea nitrogen [Mass/Vol] 13.0 mg/dL Normal 7.0-18.0 [facility] Comment on above: Performed By: #### C MP, HSTROPN #### [facility] [address] [place] [address] Dr. Gibson Jin Urea nitrogen/Creatinine [Mass ratio] 14.4 mg/mg Normal [facility] Comment on above: Performed By: #### C MP, HSTROPN #### [facility] [address] [place] [address] Dr. Gibson Jin TROPONIN, HIGH SENSITIVITYon 10-12-2022 HSTROP <4.0 Normal 4.0-51.3 [facility] Comment on above: Result Comment: CUT- OFF POINTS HAVE BEEN ESTABLISHED BASED ON THE FOURTH UNIVERSAL DEFINITIONS OF MYOCARDIAL INFARCTION. THE UPPER REFERENCE LIMIT (URL) OF TROPONIN, DEFINED THE 99TH PERCENTILE OF cTnI DISTRIBUTION IN A REFERENCE POPULATION, HAS BEEN CONFIRMED THE DECISION THRESHOLD FOR [place] DIAGNOSIS. Performed By: #### P OCGLUC #### [facility] [address] [place] [address] Dr. Gibson Jin HSTROP <4.0 Normal 4.0-51.3 [facility] Comment on above: Result Comment: CUT- OFF POINTS HAVE BEEN ESTABLISHED BASED ON THE FOURTH UNIVERSAL DEFINITIONS OF MYOCARDIAL INFARCTION. THE UPPER REFERENCE LIMIT (URL) OF TROPONIN, DEFINED THE 99TH PERCENTILE OF cTnI DISTRIBUTION IN A REFERENCE POPULATION, HAS BEEN CONFIRMED THE DECISION THRESHOLD FOR [place] DIAGNOSIS. Performed By: #### C MP, HSTROPN #### [facility] [address] [address] [address] Gibson Jin XR CHEST 1 Von 10-12-2022 XR CHEST 1 V EXAMINATION: XR CHES T 1 V HISTORY: CHEST PAIN, UNSPECIFIED COMPARISON: [...] by: MATTHEW WINN Date: 2022-10-12 10:36 Normal [facility] COVID + FLU Quick Testingon 09-20-2022 SARS-CoV-2 (COVID-19) RNA RIDGE+probe Ql (Unsp spec) Negative [facility] [employer] Other COVID + FLU Quick Testing Negative [facility] [employer] Other Quick Strepon 09-20-2022 S. pyogenes Org specific cx Ql (Throat) Negative [employer] Other Quick Strep [facility] [employer] Other COVID/FLU/RSV RT-PCRon 06-30 SARS-CoV-2 (COVID-19) RNA RIDGE+probe Ql (Unsp spec) Negative [employer] Other COVID/FLU/RSV RT-PCR Negative [facility] [employer] Other Registrationon 02-04-2022 Registration [id number]. 00CD:127 Normal [facility] 01-09-2022 Consent [id number] .00CD:127 Normal [facility] COVID/FLU RT-PCRon 2 SARS-CoV-2 (COVID-19) RNA RIDGE+probe Ql (Unsp spec) Positive [employer] Other COVID/FLU RT-PCR Negative [facility] [employer] Other Coding Summary.on 08-04-2021 Coding Summary. CD:[id number] G h0bWw+PGhlYWQ+RL6VOXL xU00soVJejX7ZC8jKGU0U QMPEZZYUPP7ASW1rqLS4P NjoB5QwxcTs LbrcoGPwPR24LEf4HVP4w HvcZOzskL2acYRaE2d6Dk VtPS18lR38EApfPLVjMhQ 3LjZpbjsgbWFy P4lsLdLqdVRuPwd+PHRhY mxlIHdpZHRoPScxMDAlJy VivFufTO4dMv2zKKPeRZX vbGxhcHNlOiBj p5gvZKUjVWlxOU5etDsyK 9CpbLA1JWDaj3h5Gk95mS I+JPRoTEA7sHnyIFdio68 8QuKlk6xzMUP7 zQQhIOsdRLS7K13hd3S7E WCqSKYlGDW1kDM2cB0iaD rqammrZ7OlfVKkIuP8CIZ 5cMHsrM0vkBbc kduisG2cZnv+U86SCK0RD COWVG1YUaq0K7TxIowmsT I+RQ03ZDPxGX37yTXtnMD nf8pqpRs5RsIs SGOzGUR7rOvpPRsdn4WlJ XTbK23bkAMzm3L5ZMQlcY nbzHLuVbLicMG7bF1wFHe rfmfid6kpznpk Tfbis0neib74oH77C31uZ YwkGKOnSXT8QADsPWSgaY nmko7odY5rUq5+EEnpc9t jh2owrUf7WsOg QPUedwIseKjpDUA7u2HbG l68V9GkfLbvw8OwVxh7hg 32gYSug0F5pNG1XCzxSYR xkZ9gQWbhHlJ8 MKMyEpThtL96dSEyXCbeT o0pjIyraYzgTF7vEDPzls bhYJHgbV0fGEZouZEgtGp yVY5nONXblemd m825QzCnFAS8WCUhvDEfJ 5YdaW0cHcZjMOEyASSqT2 PtvXKwKJlxD767UYjvAgN 0JJQknkCfN6Xd WUPlgSnkJbI1v7O0Bf1Zc 9NmwcntSVN4GGvcOTIeOg OjTiGfEzP1J8HsGay5QTY rxRpbBD6tG3Jz OUEmzkkmycgcwBI2SWGuC ZKwhY71oIWyPJfcYf9js1 T0f995ALBzOLNenW96Cp1 udDogMTBwdCBU sO9dohxyn1mjgtwhOlDrV DQkLHf8WFj3UDIxaStaIm ZwVCU5TlS5JTB3eHSciY4 deKclhhktvY9f Oyc+O45mfN4jGQJ4EWR2d kdsHWSypsQoEM15RB11I2 RyPjwvdGFibGU+PGRpdiB njElxDF1rMcTl f1bmc9OfNCtxY8FfMNAoD OkfOfq2MEEmIKC2jCD9tR 7iQPWcYUgcd8V3uPM3P6Y lvmEuyw7op9ol KQFrWNovX27czWFum0T3B LBhzIA3ZITzqYhjKnKioE 93Oyc+PHEyxFhmq4XaIpd jc2htb6swcPw4 VwNxXRMpkdSphYysOZP7s 5EyAj95B92fGUdlSNUeWW LfJBBwZQLrzFsytk0daK5 wIi8+PGNvbCB3 bHX0vO2rNZPcUqD9XQbmV 563EhIyeXUcGtagh4pdz4 fbfFy1JbXbZGBongNamOz sXTV2y2KgFu64 R50aSMroYMMzIAWeXWMtC PTooRpjnh9jvZ1cIp5+PC 9fe3mwso90vW64iAM+PHR wNII7pUlkQApg VFUmiF2iUKdnLyQ0GADcJ cDwrL89pPLgDCelYq6urS rouVzjQS6vYMKohcxib65 0DrCns9mkJMQu hONyIYkgBME8U31ef4O8P JFuZAUcTZU0uIU9oZ1xnX lnbjogbGVmdDsgdmVydGl fNXxzYNljD713 IHRvcDsnPlBhdGllbnQgT ySjYMo4Z4YaHky7GRKjvC vfPZ9dpJOyUXhqOo5umUx kwCohWZ9gDOOh zogpx732CzShj7seVBWca AWlVQiiAHG8R96mp1K2WO TdIKTvKFN5eMQ7zH5hjYn nbjogbGVmdDsg qvWkjHdiRSdsKNuzW436T HRvcDsnPkJpcnRoIERhdG A3CF92KO48yEShg3D4hZF 6H7OyTNJisngi thruhTP5ALZbPLEpkJ40A q4jkStyUi6pSZRyGLR0GJ TraSKyC4AiwZ6wZzSiODV uZILnP0WbkZKu PFwiI385FKomBbR9YSFen fGqE0HdEKPawAeuJmZ7v1 K5Lt7MC4P0VY68RM86fQQ ap8N2oJM3R3Zo TEUezgpwzzxfnKT2FNAcF VDejS73Fh6raAxuEo2yXZ YsMGO8WKMphFQfJ3WiuH5 yOiAjMDAwMDAw Z7EicVGkSUhzR086DEjaW tE6YOKeewYmV4QwTBPlgT nvIgP3z9I8Dv2AEAo5QY7 0QR10tOApb7V1 oAR4K0PwCOZyxfqprdmgh CC6BISgDWBdiY10Vi6xjX psCf4oEAMkSDL4RHOmnEB wZ6TkoE5iQfWd QZXvEWAvM5UdiURhFFtuU 513QTnqAzO4GDXjvhBkA6 GkOPSjeZvjIdX1s3J0Zv9 UPJUjPC67TNH0 mFN7FX81CW59C3IpWocnt GFibGU+PHRhYmxlIHdpZH RoPScxMDAlJyBzdHlsZT0 xIr3zMRLvOSKr xXylxPMbShFjj5peEAAxE RwiCG6qkWpwE4OtqNL1YG Alr2p4Sw59Q16xR8DrlKQ +BSYunYX7sTY0 wN6qYwNkJgO8JYbvN332R uRbjJFtIhjpc1tze6ewaM b3HcK0CMWfokBolEtlBGR 6u3ZoOr02G86l IHdpZHRoPSIxNSUiIHZhb Kdnmn4nuZ1rPx0+PGNvbC H9cRH4xW6bEoNwOcY4EDx wU031MeHghBYb Onzdk2yjf5pseMz8MoMpP NRkxpDxrGcpDAS0t2SuXv 59X3XriEldh3PlDve7bx0 7vEVdd5Y8kCC4 Q6LoUNHuqybbrPJeaClfP T0pEHNkbvwkUIVoyJ8hJM KgJ1e3YtDePhJ4JFahQ0Z zqfF1KLYvtVJq SYgmFWP4G44tl2U2SQDtP TSwRUI1kHJ2pO9xcTeedm ogbGVmdDsgdmVydGljYWw hFDwyU636CUUg tOvwOGUjkN9xCQMztYAmu ZgdHF0pUWKujesgOozUYs NJQSwgTUFSSUEgRDwvdGQ +IROcBDH8hOhb SKqtXQUtfI0mSWFjN6q0V uSwPxY4INrrC2BdUDClef lfPm33kC1wWfGiKbV5PUv zT8ReldL4AKQz bDYkAHcpHZX2H80jq6A4L ZBiRJNwPXV4lIU3qV4gaN lnbjogbGVmdDsgdmVydGl pZEmePUhlX815 BPGdtHlbShZoWeK2SuA0Z uG6Z1QiWxr5QXBbbKonCK 7gyHPzWBroSa1ynOkpiEx vSW0kFEXzyfzq HJHhgG8wRNDtbSVqrJwhZ E0fACMqjctpm909SaEzPQ B0QZYxhDAnM4QffK6nYdZ kANIzMGZgJ9Qz jKGgTTzaO327JPfqPyX7W QIbxmVyM6JxZWPdlVysNw N3y6G6Tg76IMBTYWCjjlz vdGQ+PHRkIHN0 mDtxRPjiGGFnjG7tMKTsR 7g5NlGrQbI2VFanQ6IiBP NziettRb48rO9fSuPhRdP 9UNvkO4GtyvK0 XJUbuXGtFJbqQVK4W11yk 3O9SVAnSULsTWW4pAP2hU 1hbGlnbjogbGVmdDsgdmV ydGljYWwtYWxp K103KPYlbFwhAmYykAGjK TwvdGQ+MNOjUCY6qAkgKD yfGXMyyN3yUEJsB3t0WrX zNkL5YJviF6Dr FOEfcqepMw27gN3mFsXpH rX8YWdpN1OdppE4OABysO VqHZfvQRT8O05jj8P4CBU bXODaBBP7gCZ5 eS6eoWgvlzwneEWyrVpuy rZfqLqsOVgcKXaqN951VQ FoxDubHtMqD5OjgbdtMgf vdGQ+GE01fm17 Y7TaZwrmRsy9LOVyMKD5f DX8sE1xJEHjXZghs4B0dE Y7R2OvxtIvmn4yg6crDPR dIKotB23inWEc o2G3BCSjgWL5SNCayMouD sYywZ23Zss+PGNvbGdyb3 PcRxyls0tyq1idySi2IlZ wJSIgdmFsaWdu KZQ4h7NeFd96R31zQAjiI HRoPSIzMCUiIHZhbGlnbj 9ggK2qKf4+KSLfhZV5lVD 7zX9lHvLkBrJ9 TGtlG908OdLzfGKeStdow 8wjl3wyzWu6WpJnSTNfbe MqwZdeCPE8j2WrFv08L1S oaKuel7WpJby6 bf92hDTaf3V4mQD6M1FdC UKjzchcsZWmnGfiCG6hED BsizksMSUfjT6oEARhZ9a 4DrEdQuT7UFvi K3NohnV9PYSubUMfICIqf WWAjL3ikacvc5onwoiuWd CmJYOpVJq3CMb4CKThfRq dPqFlIEF3XtZ8 PKW4eXOilJ9zvSlcyuaxa G9wOyc+EBe7m6oabZFdTA 1ggLT4ET32IK15jVUaa4R 2oNP2N4AcMEPa fhojomqpjTH7BQQbODCcu B88Pc3soIagXg5jORAlSF F3KGZzeHBhG6QwbF3vUnZ yFSMhJREhX3Ao lLUmZPqhH060OOikGqJ5M HAdtlFnO4UiOKBquVrsEp N9n5D2Rj7FCY77XZ39JR8 4rWRsx2Z8qMP3 K9XeKFCrgzejnpebjCI0Q DCxONSheJ76Qr9ygDeyCb 3bQNMlEHP6GRCfcYJsQ6Z dnC9rRkHpVSJv UWKfM1XwlOFnZTxiG544V TeiJsI9CJBffzKaE7JxBT DqgWskJmQ7t5A6Yb6BVj8 5GP64BL55oKKv v2R1vGR6S9TgXBNtmghbt mwpdXS3UFVsKWWoqF03Hc 4aeOcsJj8gSHHfMCA0SHQ fhUEhB9AjzC9l MtXuYHMuOQXmC7XjjTNkK TvyZ664ALipDyR7FXTrig RrX2VaPXOcuVacEjJ4n2A 4Ou9ORJzhuhy0 H8ZzVlylyGD+FR48JEXiU L73mWClmLRpw8isuRr1Qz NwTYMtCVR2xLlhTRtpj6I tSFBiY58kbEVl c2U6 (more content not included)... Normal [facility] Consent for Treatmenton Consent for Treatment [id number]# 1.00CD:127 Normal [facility] COVID-19 ([facility])on 08-01-2021 SARS-CoV-2 (COVID-19) RNA RIDGE+probe Ql (Resp) Not detected Normal Not Detected [facility] Comment on above: Result Comment: This test result should be correlated with clinical presentations and medical history by a healthcare provider to determine its clinical significance. This assay was performed by a reverse transcriptase real-time polymerase chain reaction (rt PCR) method on the [employer] system. This test has been authorized only [...] or revoked sooner. Performed By: #### 2 [id number] #### [facility] [address] [place] [address] SARS-CoV-2 (COVID-19) RNA RIDGE+probe Ql (Unsp spec) Pass Normal Pass [facility] Comment on above: Performed By: #### 2 [id number] #### [facility] [address] [place] [address] Specimen source Nom (Unsp spec) Nasal Normal [facility] Comment on above: Performed By: #### 2 [id number] #### [facility] [address] [place] [address] [place] [place] ADMITTED TO INTENSIVE CARE UNIT FOR CONDITION OF INTEREST:FIND:PT: Unknown Normal [facility] Comment on above: Performed By: #### 2 [id number] #### [facility] [address] [place] [address] EMPLOYED IN A HEALTHCARE SETTING:FIND:PT: Unknown Normal [facility] Comment on above: Performed By: #### 2 [id number] #### [facility] [address] [place] [address] FIRST TEST FOR CONDITION OF INTEREST:FIND:PT: Unknown Normal [facility] Comment on above: Performed By: #### 2 [id number] #### [facility] [address] [place] [address] HAS SYMPTOMS RELATED TO CONDITION OF INTEREST:FIND:PT: Unknown Normal [facility] Comment on above: Performed By: #### 2 [id number] #### [facility] [address] [place] [address] HOSPITALIZED FOR CONDITION OF INTEREST:FIND:PT: Unknown Normal [facility] Comment on above: Performed By: #### 2 [id number] #### [facility] [address] [place] [address] STATUS:FIND:PT: Unknown Normal [facility] Comment on above: Performed By: #### 2 [id number] #### [facility] [address] [id number] RESIDES IN A CONGREGATE CARE SETTING:FIND:PT: Unknown Normal [facility] Comment on above: Performed By: #### 2 [id number] #### [facility] [address] [id number] CTA CHEST W CONTRASTon 01-14 CTA CHEST [...] Kwabena Peña MD 01/13/21 Final result Normal [facility] CBC Auto DifferentialOrdered By: Tita Costelloitrov on 01-13-2021 Absolute Eos # 0.10 [facility] Work Phone: Absolute Immature Granulocyte NOT REPORTED [facility] Work Phone: Absolute Lymph # 0.80 Low [facility] Work Phone: Absolute [place] # 0.50 [facility] Work Phone: Basophils (Bld) [#/Vol] 0.00 10*3/uL [facility] Phone: Basophils/100 WBC (Bld) 0 % 0 - 2 % [employer] Phone: Differential Type YES [employer] Phone: Eosinophils/100 WBC (Bld) 1 % 0 - 5 % [employer] Phone: Hematocrit (Bld) [Volume fraction] 42.0 % 36 - 46 % [employer] Phone: Hemoglobin.gastrointes tinal spec 1 Ql (Stl) 14.3 g/dL 12.0 - 16.0 g/dL [facility] Phone: Immature Granulocytes NOT REPORTED 0 % [email or web address] Phone: Interpretation and review of laboratory results Abnormal [facility] Phone: Lymphocytes/100 WBC (Bld) 11 % Low 15 - 40 % [employer] Phone: MCH (RBC) [Entitic mass] 29.5 pg 26 - 34 pg [employer] Phone: MCHC (RBC) [Mass/Vol] 34.1 g/dL 31 - 37 g/dL [email or web address] Phone: MCV (RBC) [Entitic vol] 86.5 fL 80 - 100 fL [employer] Phone: Monocytes/100 WBC (Bld) 7 % 4 - 8 % [employer] Phone: NRBC Automated NOT REPORTED per 100 WBC [employer] Phone: Platelet distribution width (Bld) [Ratio] 13.3 % 12.1 - 15.2 % [employer] Phone: Platelet Estimate NOT REPORTED [employer] Phone: Platelet mean volume (Bld) [Entitic vol] NOT REPORTED 6.0 - 12.0 fL [employer] Phone: Platelets (Bld) [#/Vol] 340 10*3/uL [employer] Phone: RBC (Bld) [#/Vol] 4.86 10*6/uL 4.0 - 5.2 m/uL [employer] Phone: RBC (Bld) [#/Vol] NOT REPORTED [employer] Phone: Segmented neutrophils/100 WBC (Bld) 81 % High 47 - 75 % [employer] Phone: Segs Absolute 6.30 [employer] Phone: WBC (Bld) [#/Vol] 7.8 10*3/uL [employer] Phone: WBC (Bld) [#/Vol] NOT REPORTED [facility] Phone: [employer] Phone: CBC with Diffon 01-13-2021 Abs. Basophil 0.00 k/uL Normal 0.0-0.2 [facility] Comment on above: Performed By: #### D DRE NARANJO, REJEC #### [facility] [address] [place] [address] Pattern Maker Programer: Flash Jaramillo MD Abs.Neutrophil (Seg) 6.30 k/uL Normal 2.5-7.0 [facility] Comment on above: Performed By: #### D DRE NARANJO, REJEC #### [facility] [address] [place] [address] Pattern Maker Programer: Flash Jaramillo MD Auto Diff Performed YES Normal [facility] Comment on above: Performed By: #### D DRE NARANJO, REJEC #### [facility] [address] [place] [address] Pattern Maker Programer: Flash Jaramillo MD Basophils/100 WBC (Bld) 0 % Normal 0-2 [facility] Comment on above: Performed By: #### DRE SIU, REJEC #### [facility] [address] [place], [place] [id number] Pattern Maker Programer: Flash Jaramillo MD Eosinophils (Bld) [#/Vol] 0.10 10*3/uL Normal 0.0-0.4 [facility] Comment on above: Performed By: #### D DRE NARANJO, REJEC #### [facility] [address] [place], [place] [id number] Pattern Maker Programer: Flash Jaramillo MD Eosinophils/100 WBC (Bld) 1 % Normal 0-5 [facility] Comment on above: Performed By: #### DRE SIU, REJEC #### [facility] [address] [place], [place] [id number] Pattern Maker Programer: Flash Jaramillo MD Erythrocyte distribution width (RBC) [Ratio] 13.3 % Normal 12.1-15.2 [facility] Comment on above: Performed By: #### DRE SIU, REJEC #### [facility] [address] [place], [place] [id number] Pattern Maker Programer: Flash Jaramillo MD Hematocrit (Bld) [Volume fraction] 42.0 % Normal 36-46 [facility] Comment on above: Performed By: #### DRE SIU, REJEC #### [facility] [address] [place], [place] [phone] Pattern Maker Programer: Flash Jaramlilo MD Hemoglobin (Bld) [Mass/Vol] 14.3 g/dL Normal 12.0-16.0 [facility] Comment on above: Performed By: #### DRE SIU, REJEC #### [facility] [address] [place], [place] [phone] Pattern Maker Programer: Flash Jaramillo MD Lymphocytes (Bld) [#/Vol] 0.80 10*3/uL Low 1.0-4.8 [facility] Comment on above: Performed By: #### DRE SIU, REJEC #### [facility] [address] [place], [place] [id number] Pattern Maker Programer: Flash Jaramillo MD Lymphocytes/100 WBC (Bld) 11 % Low 15-40 [facility] Comment on above: Performed By: #### DRE SIU, REJEC #### [facility] [address] [place] [address] Pattern Maker Programer: Flash Jaramillo MD MCH (RBC) [Entitic mass] 29.5 pg Normal 26-34 [facility] Comment on above: Performed By: #### DRE SIU, REJEC #### [facility] [address] [place] [address] Pattern Maker Programer: Flash Jaramillo MD MCHC (RBC) [Mass/Vol] 34.1 g/dL Normal 31-37 [facility] Comment on above: Performed By: #### DRE SIU, REJEC #### [facility] [address] [place], [place] [phone] Pattern Maker Programer: Flash Jaramillo MD MCV (RBC) [Entitic vol] 86.5 fL Normal 80-100 [facility] Comment on above: Performed By: #### DRE SIU, REJEC #### [facility] [address] [place] [address] Pattern Maker Programer: Flash Jaramillo MD Monocytes (Bld) [#/Vol] 0.50 10*3/uL Normal 0.0-1.0 [facility] Comment on above: Performed By: #### DRE SIU, REJEC #### [facility] [address] [place], [place] [phone] Pattern Maker Programer: Flash Jaramillo MD Monocytes/100 WBC (Bld) 7 % Normal 4-8 [facility] Comment on above: Performed By: #### D DRE NARANJO, REJEC #### [facility] [address] [place], [place] [phone] (211) Pattern Maker Programer: Flash Jaramillo MD Neutrophil (Seg) 81 % High 47-75 [facility] Comment on above: Performed By: #### D DRE NARANJO, REJEC #### [facility] [address] [place], [place] [phone] (781) Pattern Maker Programer: Flash Jaramillo MD Platelets (Bld) [#/Vol] 340 10*3/uL Normal 140-450 [facility] Comment on above: Performed By: #### D DRE NARANJO, REJEC #### [facility] [address] [place] [address] (452) Pattern Maker Programer: Flash Jaramillo MD RBC (Bld) [#/Vol] 4.86 10*6/uL Normal 4.0-5.2 [facility] Comment on above: Performed By: #### D DRE NARANJO, REJEC #### [facility] [address] [place] [address] (246) Pattern Maker Programer: Flash Jaramillo MD WBC (Bld) [#/Vol] 7.8 10*3/uL Normal 3.5-11.0 [facility] Comment on above: Performed By: #### D DRE NARANJO, REJEC #### [facility] [address] [place], [place] [phone] ([phone]) Pattern Maker Programer: Flash Jaramillo MD Abs.Imm.Granulocyte NOT REPORTED Normal 0.00-0.30 [facility] Comment on above: Performed By: #### D DRE NARANJO, REJEC #### [facility] [address] [place], [place] [phone] Pattern Maker Programer: Flash Jaramillo MD Immature Granulocyte NOT REPORTED Normal 0 [facility] Comment on above: Performed By: #### D DRE NARANJO, REJEC #### [facility] [address] [place] [address] Pattern Maker Programer: Flash Jaramillo MD MPV NOT REPORTED Normal 6.0-12.0 [facility] Comment on above: Performed By: #### D DRE NARANJO, REJEC #### [facility] [address] [place] [address] Pattern Maker Programer: Flash Jaramillo MD NRBC Automated NOT REPORTED Normal [facility] Comment on above: Performed By: #### D DRE NARANJO, REJEC #### [facility] [address] [place] [address] Pattern Maker Programer: Flash Jaramillo MD Platelet Estimate NOT REPORTED Normal [facility] Comment on above: Performed By: #### D DRE NARANJO, REJEC #### [facility] [address] [place] [address] Pattern Maker Programer: Flash Jaramillo MD RBC morphology finding Nom (Bld) NOT REPORTED Normal [facility] Comment on above: Performed By: #### D DRE NARANJO, REJEC #### [facility] [address] [place] [address] Pattern Maker Programer: Flash Jaramillo MD WBC Morphology NOT REPORTED Normal [facility] Comment on above: Performed By: #### D DRE NARANJO, REJEC #### [facility] [address] [place] [address] Pattern Maker Programer: Flash Jaramillo MD CTA CHEST W CONTRASTOrdered By: Tita Edwards on 01-13-2021 No evidence for acut e large occlusive pulmonary embolism. No evidence for thoracic aortic aneurysm or dissection flap. No suspicious lung infiltrates or consolidation. Hepatic steatosis. Mild gastroesophageal wall thickening, correlate clinically. [facility] Work Phone: EXAMINATION: CTA CHEST W [...] distal esophagitis/wall lesion. No acute bony abnormality. [employer] Phone: [place], pn Incoming Radiant Results From Pulse [employer] - 01/13/2021 10:06 PM EDT EXAMINATION: CTA [...] steatosis. Mild gastroesophageal wall thickening, correlate clinically. [facility] Work Phone: [facility] Work Phone: Comp Metabolic Profon 2020 (cont.) Normal [facility] Comment on above: Result Comment: Aver age GFR for 50-59 years old: 93 mL/min/1.73sq m Chronic Kidney Disease: <60 mL/min/1.73sq m Kidney failure: <15 mL/min/1.73sq m eGFR calculated using average adult body mass. Additional eGFR calculator available at: http://www.Event[employer]/multiple_crcl_2011.htm Performed By: #### C P, TROPI #### [facility] [address] [place], [place] [phone] Pattern Maker Programer: Flash Jaramillo MD Albumin [Mass/Vol] 4.3 g/dL Normal 3.5-5.2 [facility] Comment on above: Performed By: #### C P, TROPI #### [facility] [address] [place] [address] Pattern Maker Programer: Flash Jaramillo MD Alkaline Phos 165 U/L High 35-104 [facility] Comment on above: Performed By: #### C P, TROPI #### [facility] [address] [place] [address] Pattern Maker Programer: Flash Jaramillo MD ALT [Catalytic activity/Vol] 24 U/L Normal 5-33 [facility] Comment on above: Performed By: #### C P, TROPI #### [facility] [address] [place], [place] [phone] Pattern Maker Programer: Flash Jaramillo MD Anion gap [Moles/Vol] 10 mmol/L Normal 9-17 [facility] Comment on above: Performed By: #### C P, TROPI #### [facility] [address] [place], [place] [phone] Pattern Maker Programer: Flash Jaramillo MD AST [Catalytic activity/Vol] 14 U/L Normal <32 [facility] Comment on above: Performed By: #### C P, TROPI #### [facility] [address] [place], [place] [phone] Pattern Maker Programer: Flash Jaramillo MD Bilirubin [Mass/Vol] 0.24 mg/dL Low 0.30-1.20 [facility] Comment on above: Performed By: #### C P, TROPI #### [facility] [address] [place], [place] [phone] Pattern Maker Programer: Flash Jaramillo MD BUN/CRE Ratio 16 Normal 9-20 [facility] Comment on above: Performed By: #### C P, TROPI #### [facility] [address] [place], [place] [phone] Pattern Maker Programer: Flash Jaramillo MD Calcium [Mass/Vol] 9.9 mg/dL Normal 8.6-10.4 [facility] Comment on above: Performed By: #### C P, TROPI #### [facility] [address] [place], [place] [phone] Pattern Maker Programer: Flash Jaramillo MD Chloride [Moles/Vol] 101 mmol/L Normal 98-107 [facility] Comment on above: Performed By: #### C P, TROPI #### [facility] [address] [place], [place] [phone] Pattern Maker Programer: Flash Jaramillo MD CO2 [Moles/Vol] 24 mmol/L Normal 20-31 [facility] Comment on above: Performed By: #### C P, TROPI #### [facility] [address] [place], [place] [address] Pattern Maker Programer: Flash Jaramillo MD Creatinine [Mass/Vol] 1.04 mg/dL High 0.50-0.90 [facility] Comment on above: Performed By: #### C P, TROPI #### [facility] [address] [place] [address] Pattern Maker Programer: Flash Jaramillo MD GFR, Amer >60 Normal >60 [facility] Comment on above: Performed By: #### C P, TROPI #### [facility] [address] [place], [place] [address] Pattern Maker Programer: Flash Jaramillo MD GFR,non Amer 55 mL/min Low >60 [facility] Comment on above: Performed By: #### C P, TROPI #### [facility] [address] [place], [place] [phone] Pattern Maker Programer: Flash Jaramillo MD Glucose [Mass/Vol] 126 mg/dL High 70-99 [facility] Comment on above: Performed By: #### C P, TROPI #### [facility] [address] [place] [address] Pattern Maker Programer: Flash Jaramillo MD Potassium [Moles/Vol] 4.2 mmol/L Normal 3.7-5.3 [facility] Comment on above: Performed By: #### C P, TROPI #### [facility] [address] [place], [place] [phone] Pattern Maker Programer: Flash Jaramillo MD Protein [Mass/Vol] 7.9 g/dL Normal 6.4-8.3 [facility] Comment on above: Performed By: #### C P, TROPI #### [facility] [address] [place], [place] [phone] Pattern Maker Programer: Flash Jaramillo MD Sodium [Moles/Vol] 135 mmol/L Normal 135-144 [facility] Comment on above: Performed By: #### C P, TROPI #### [facility] [address] [place], [place] [phone] Pattern Maker Programer: Flash Jaramillo MD Urea nitrogen [Mass/Vol] 17 mg/dL Normal 6-20 [facility] Comment on above: Performed By: #### C P, TROPI #### [facility] [address] [place] [address] Pattern Maker Programer: Flash Jaramillo MD Albumin/Glob Ratio NOT REPORTED Normal 1.0-2.5 [facility] Comment on above: Performed By: #### C P, TROPI #### [facility] [address] [place], [place] 2000[address] Pattern Maker Programer: Flash Jaramillo MD Staging: NOT REPORTED Normal [facility] Comment on above: Performed By: #### C P, TROPI #### [facility] [address] [place] [address] Pattern Maker Programer: Flash Jaramillo MD Comprehensive Metabolic Pane lOrdered By: Tita Edwards on 01-13-2021 Albumin [Mass/Vol] 4.3 g/dL 3.5 - 5.2 g/dL [facility] Phone: Albumin/Globulin Ratio NOT REPORTED [facility] Phone: ALP (Bld) [Catalytic activity/Vol] 165 U/L High 35 - 104 U/L [employer] Phone: ALT [Catalytic activity/Vol] 24 U/L 5 - 33 U/L [employer] Phone: Anion gap [Moles/Vol] 10 mmol/L 9 - 17 mmol/L [employer] Phone: AST [Catalytic activity/Vol] 14 U/L <32 [employer] Phone: Bilirubin [Mass/Vol] 0.24 mg/dL Low 0.30 - 1.20 mg/dL [employer] Phone: Calcium [Mass/Vol] 9.9 mg/dL 8.6 - 10. 4 mg/dL [employer] Phone: Chloride [Moles/Vol] 101 mmol/L 98 - 10 7 mmol/L [employer] Phone: CO2 [Moles/Vol] 24 mmol/L 20 - 31 mmol/L [employer] Phone: Creatinine [Mass/Vol] 1.04 mg/dL High 0.50 - 0.90 mg/dL [employer] Phone: Free PSA/Total PSA [Mass fraction] 7.9 g/dL 6.4 - 8.3 g/dL [employer] Phone: GFR >60 >60 mL/min [employer] Phone: GFR Non- 55 mL/min Low >60 [employer] Phone: GFR/1.73 sq M.predicted MDRD (S/P/Bld) [Vol rate/Area] [employer] Phone: Comment on above: Average GFR for 50-5 9 years old: 93 mL/min/1.73sq m Chronic Kidney Disease: <60 mL/min/1.73sq m Kidney failure: <15 mL/min/1.73sq m eGFR calculated using average adult body mass. Additional eGFR calculator available at: http://www.[employer]/multiple_crcl_2012.htm GFR/1.73 sq M.predicted MDRD (S/P/Bld) [Vol rate/Area] NOT REPORTED [employer] Phone: Glucose [Mass/Vol] 126 mg/dL High 70 - 99 mg/dL [employer] Phone: Interpretation and review of laboratory results Abnormal [employer] Phone: Potassium [Moles/Vol] 4.2 mmol/L 3.7 - 5.3 mmol/L [employer] Phone: Sodium [Moles/Vol] 135 mmol/L 135 - 144 mmol/L [employer] Phone: Urea nitrogen (BldV) [Mass/Vol] 17 mg/dL 6 - 20 mg/dL [facility] [employer] Work Phone: Urea nitrogen/Creatinine (Bld) [Mass ratio] [email or web address] Work Phone: [facility] [employer] Phone: D-Dimer Teston 01-13-2021 D-Dimer Test 0.88 mg/L FEU High 0.00-0.59 [facility] Comment on above: Result Comment: [...] By: #### D MAR, CDP, REJEC #### [facility] [address] [place] [address] [employer] Programer: Flash Jaramillo MD D-Dimer, QuantitativeOrdered By: Tita Edwards on 01-13-2021 D-Dimer, Quant 0.88 High [facility] [employer] Phone: Comment on above: When combined with [...] Interpretation and review of laboratory results Abnormal [employer] Phone: [employer] Phone: SPECIMEN REJECTIONOrdered By : Tita Edwards on 01-13-2021 - NOT REPORTED [employer] Phone: Ordered Test CP TROP [employer] Phone: Reason for Rejection Unable to perform testing: Specimen hemolyzed. [employer] Phone: Specimen source Nom (Unsp spec) [facility] [employer] Phone: Specimen Rejectionon 021 Reason for rejection Unable to perform testing: Specimen hemolyzed. [facility] Comment on above: Performed By: #### D DRE NARANJO, AMANDA #### [facility] [address] [place] [address] [employer] Programer: Flash Jaramillo MD Source of sample BLOOD IV START [facility] Comment on above: Performed By: #### D DRE NARANJO, REJEC #### [facility] [address] [place], [place] [id number] [employer] Programer: Flash Jaramillo MD Test ordered CP TROP Normal [facility] Comment on above: Performed By: #### D DRE NARANJO, REJEC #### [facility] [address] [place] [address] Pattern Maker Programer: Flash Jaramillo MD ----- NOT REPORTED Normal [facility] [place] Comment on above: Performed By: #### D DRE NARANJO, REJEC #### [facility] [address] [place] [address] Pattern Maker Programer: Flash Jaramillo MD Troponinon 01-13-2021 Troponin, High Sens <6 Normal 0-14 [facility] Comment on above: Result Comment: High Sensitivity Troponin values cannot be compared with other Troponin methodologies. Patients with high levels of Biotin oral intake (i.e >5mg/day) may have falsely decreased Troponin levels. Samples collected within 8 hours of biotin intake may require additional information for diagnosis. Performed By: #### T ROPI #### [facility] [address], [place] [id number] Pattern Maker Programer: Flash Jaramillo MD Troponin Interp. NOT REPORTED Normal [facility] Comment on above: Performed By: #### T ROPI #### [facility] [address], [place] [id number] Pattern Maker Programer: Flash Jaramillo MD Troponin T NOT REPORTED Normal <0.03 [facility] [place] Comment on above: Performed By: #### T ROPI #### [facility] [address], [place] [id number] Pattern Maker Programer: Flash Jaramillo MD Troponin, High Sens <6 Normal 0-14 [facility] Comment on above: Result Comment: High Sensitivity Troponin values cannot be compared with other Troponin methodologies. Patients with high levels of Biotin oral intake (i.e >5mg/day) may have falsely decreased Troponin levels. Samples collected within 8 hours of biotin intake may require additional information for diagnosis. Performed By: #### C P, TROPI #### [facility] [address] [place] [address] Pattern Maker Programer: Flash Jaramillo MD Troponin Interp. NOT REPORTED Normal [facility] Comment on above: Performed By: #### C P, TROPI #### [facility] [address] [place] [address] Pattern Maker Programer: Flash Jaramillo MD Troponin T NOT REPORTED Normal <0.03 [facility] [place] Comment on above: Performed By: #### C P, TROPI #### [facility] [address] [place], [place] [phone] Pattern Maker Programer: Flash Jaramillo MD TroponinOrdered By: Tita Edwards on 01-13-2021 Troponin Interp NOT REPORTED [employer] Work Phone: Troponin T NOT REPORTED <0.03 ng/mL [employer] Work Phone: Troponin, High Sensitivity <6 0 - 14 ng/L [facility] Work Phone: Comment on above: High Sensitivity Troponin values cannot be compared with other Troponin methodologies. Patients with high levels of Biotin oral intake (i.e >5mg/day) may have falsely decreased Troponin levels. Samples collected within 8 hours of biotin intake may require additional information for diagnosis. [facility] Work Phone: Troponin Interp NOT REPORTED [employer] Work Phone: Troponin T NOT REPORTED <0.03 ng/mL [employer] Work Phone: Troponin, High Sensitivity <6 0 - 14 ng/L [facility] Phone: Comment on above: High Sensitivity Troponin values cannot be compared with other Troponin methodologies. Patients with high levels of Biotin oral intake (i.e >5mg/day) may have falsely decreased Troponin levels. Samples collected within 8 hours of biotin intake may require additional information for diagnosis. [employer] Phone: XR CHEST PORTABLEon 01-14-20 XR CHEST [...] Sarbjit Ramirez MD 01/13/21 Final result Normal [facility] XR CHEST PORTABLEOrdered By: Tita Edwards on 01-13-2021 No focal consolidation, pneumothorax or pleural effusion. [employer] Phone: EXAM: XR CHEST PORTABLE HISTORY: Shortness of breath, chest pain. COMPARISON: None. TECHNIQUE: AP radiograph of the chest was performed. FINDINGS: No focal consolidation, pneumothorax or pleural effusion. There is mild elevation of the right hemidiaphragm. The cardiomediastinal silhouette is unremarkable. There are degenerative changes of the spine. [employer] Phone: [place], [facility] Incoming Radiant Results From Pulse [employer] - 01/13/2021 8:24 PM EDT EXAM: XR CHEST PORTABLE HISTORY: Shortness of breath, chest pain. COMPARISON: None. TECHNIQUE: AP radiograph of the chest was performed. FINDINGS: No focal consolidation, pneumothorax or pleural effusion. There is mild elevation of the right hemidiaphragm. The cardiomediastinal silhouette is unremarkable. There are degenerative changes of the spine. IMPRESSION: No focal consolidation, pneumothorax or pleural effusion. [employer] Phone: [employer] Phone: Vital Signs Date Time Vital Sign Value Performing Clinician Facility 05-22-2024 15:19-0400 Body mass index (BMI) [Ratio] 33.66 kg/m2 Chris Felter CERTIFIED PROFESSIONAL MIDWIFE-BODY FORMER Work Phone: [facility] 05-22-2024 15:19-0400 Body weight 86.18 kg Chris Madsen CERTIFIED PROFESSIONAL MIDWIFE-BODY FORMER Work Phone: [facility] 05-01-2024 11:34-0400 Body height 160 cm Dayana Woodard GLUING MACHINE FEEDER Work Phone: [facility] 05-01-2024 11:34-0400 Body mass index (BMI) [Ratio] 34.19 kg/m2 Dayana Apling GLUING MACHINE FEEDER Work Phone: [facility] 05-01-2024 11:34-0400 Body weight 87.54 kg Dayana Domínguezing GLUING MACHINE FEEDER Work Phone: [facility] 04-19-2024 13:13-0400 Body height 157.48 cm [facility] 04-19-2024 13:13-0400 Body mass index (BMI) [Ratio] 35.2 kg/m2 [facility] 04-19-2024 13:13-0400 Body temperature 98.1 [degF] [facility] 04-19-2024 13:13-0400 Body weight 87.31 kg [facility] 04-19-2024 13:13-0400 Diastolic blood pressure 82 mm[Hg] [facility] 04-19-2024 13:13-0400 Heart rate 87 /min [facility] 04-19-2024 13:13-0400 SaO2% (BldA) [Mass fraction] 97 % [facility] 04-19-2024 13:13-0400 Systolic blood pressure 126 mm[Hg] [facility] 06-16-2023 10:00-0500 Body height 157.48 cm Samra Wick Other [facility] Other 06-16-2023 10:00-0500 Body mass index (BMI) [Ratio] 35.52 kg/m2 Samra Wick Other [employer] Other 06-16-2023 10:00-0500 Body temperature 98 [degF] Samra Wick Other [employer] Other 06-16-2023 10:00-0500 Body weight 88.09 kg Samra Wick Other [employer] Other 06-16-2023 10:00-0500 Diastolic blood pressure 80 mm[Hg] Samra Wick Other [employer] Other 06-16-2023 10:00-0500 Respiratory rate 18 /min Samra Wick Other [facility] Other 06-16-2023 10:00-0500 SaO2% (BldA) [Mass fraction] 95 % Samra Wick Other [facility] Other 06-16-2023 10:00-0500 Systolic blood pressure 132 mm[Hg] Samra Wick Other [facility] Other 09-20-2022 11:45-0500 Body height 157.48 cm Siobhan Luigi Other [facility] Other 09-20-2022 11:45-0500 Body mass index (BMI) [Ratio] 34.93 kg/m2 Siobhan Luigi Other [facility] Other 09-20-2022 11:45-0500 Body temperature 98.3 [degF] Siobhan Luigi Other [facility] Other 09-20-2022 11:45-0500 Body weight 86.64 kg Siobhan Luigi Other [facility] Other 09-20-2022 11:45-0500 Respiratory rate 18 /min Siobhan Meeyrs Other [facility] Other 09-20-2022 11:45-0500 SaO2% (BldA) [Mass fraction] 98 % Siobhan Meyers Other [facility] Other 06-30-2022 18:35-0500 Body height 157.48 cm Cassandra Dumotn Other [employer] Other 06-30-2022 18:35-0500 Body mass index (BMI) [Ratio] 34.56 kg/m2 Cassandra Dumont Other [facility] Other 06-30-2022 18:35-0500 Body temperature 97.7 [degF] Cassandra Dumont Other [facility] Other 06-30-2022 18:35-0500 Body weight 85.73 kg Cassandra Dumont Other [employer] Other 06-30-2022 18:35-0500 Diastolic blood pressure 72 mm[Hg] Cassandra Dumont Other [facility] Other 06-30-2022 18:35-0500 Respiratory rate 18 /min Cassandra Dumont Other [facility] Other 06-30-2022 18:35-0500 SaO2% (BldA) [Mass fraction] 98 % Cassandra Dumont Other [employer] Other 06-30-2022 18:35-0500 Systolic blood pressure 126 mm[Hg] Cassandra Dumont Other [employer] Other 12-18-2021 16:55-0400 Body height 157.48 cm Siobhan Meyers Other [employer] Other 12-18-2021 16:55-0400 Body mass index (BMI) [Ratio] 32.92 kg/m2 Siobhan Meyers Other [employer] Other 12-18-2021 16:55-0400 Body temperature 98.9 [degF] Siobhan Meyers Other [facility] Other 12-18-2021 16:55-0400 Body weight 81.65 kg Siobhan Meyers Other [facility] Other 12-18-2021 16:55-0400 Respiratory rate 16 /min Siobhan Meyers Other [employer] Other 12-18-2021 16:55-0400 SaO2% (BldA) [Mass fraction] 95 % Siobhan Meyers Other [employer] Other 01-13-2021 22:34-0400 Diastolic blood pressure 80 mm[Hg] Tita Edwards MD Work Phone: [employer] Work Phone: 01-13-2021 22:34-0400 Heart rate 78 /min Tita Edwards MD Work Phone: [employer] Work Phone: 01-13-2021 22:34-0400 Respiratory rate 17 /min Tita Edwards MD Work Phone: [employer] Work Phone: 01-13-2021 22:34-0400 Systolic blood pressure 134 mm[Hg] Tita Edwards MD Work Phone: [employer] Work Phone: 01-13-2021 19:33-0400 Body temperature 98.01 [degF] Tita Edwards MD Work Phone: [employer] Work Phone: 01-13-2021 19:33-0400 Body weight 79.38 kg Tita Edwards MD Work Phone: [employer] Work Phone: 01-13-2021 19:33-0400 SaO2% (BldA) [Mass fraction] 99 % Tita Edwards MD Work Phone: [employer] Work Phone: Encounters Encounter Date Encounter Type Care Provider Facility Start: 05-22-2024 End: 05-22-2024 Office outpatient visit 25 minutes Chris A Felter CERTIFIED PROFESSIONAL MIDWIFE-BODY FORMER Work Phone: [facility] Comment on above: Psoriasis vulgaris ( CMS/HCC); Psoriatic arthritis (CMS/HCC); High risk medication use Start: 05-22-2024 End: 05-22-2024 ambulatory CHRIS A FELTER Not Available Start: 05-22-2024 End: 05-22-2024 Bamboo flowsheet Chris A Felter CERTIFIED PROFESSIONAL MIDWIFE-BODY FORMER Work Phone: [facility] Start: 05-22-2024 End: 05-22-2024 Bamboo flowsheet Chris A Felter CERTIFIED PROFESSIONAL MIDWIFE-BODY FORMER Work Phone: [facility] Start: 05-01-2024 End: 05-01-2024 Bamboo flowsheet Dayana Macias Apling GLUING MACHINE FEEDER Work Phone: [facility] Start: 05-01-2024 End: 05-01-2024 Bamboo flowsheet Dayana Macias Apling GLUING MACHINE FEEDER Work Phone: [facility] Start: 05-01-2024 End: 05-01-2024 Office outpatient new 30 minutes Dayana Domínguezing GLUING MACHINE FEEDER Work Phone: [facility] Comment on above: Left shoulder pain, unspecified chronicity (Primary Dx); Arthritis of left acromioclavicular joint; Left shoulder tendonitis; Adhesive capsulitis of left shoulder Start: 05-01-2024 End: 05-01-2024 ambulatory DAYANA DOMÍNGUEZING Not Available Start: 04-19-2024 End: 04-19-[address] [facility] Work Phone: Start: 04-19-2024 End: 04-19-2024 [facility]: Start: 04-04-2024 End: 04-04-2024 ambulatory [facility] Start: 03-31-2024 End: 03-31-2024 ambulatory EMPERATRIZ CRANE [facility] Start: 03-23-2024 ambulatory [facility] Start: 03-21-2024 End: 03-26-2024 ambulatory [facility] Start: 03-15-2024 End: 03-15-2024 ambulatory [facility] Start: 03-03-2024 Non-patient / Non-visit [facility] Work Phone: Start: 12-21-2023 End: 12-23-2023 ambulatory UNKNOWN PROVIDER Facility:[facility] Start: 12-21-2023 End: 12-23-2023 Patient encounter procedure Elba Elkins DDS Work Phone: [facility] Start: 12-14-2023 End: 12-16-2023 Patient encounter procedure Maribel Connors DDS Work Phone: [facility] Start: 12-14-2023 End: 12-16-2023 ambulatory UNKNOWN PROVIDER Facility:[facility] Start: 11-18-2023 End: 11-18-2023 ambulatory CHRIS MADSNE Not Available Start: 10-22-2023 End: 10-22-2023 ambulatory UNKNOWN PROVIDER Facility:[facility] Start: 10-01-2023 End: 10-01-2023 ambulatory CHRIS MADSEN Not Available Start: 09-15-2023 End: 09-16-2023 ambulatory UNKNOWN PROVIDER Facility:[facility] Start: 09-10-2023 End: 09-10-2023 ambulatory [facility] Start: 07-30-2023 End: 07-30-2023 ambulatory [facility] Start: 06-29-2023 End: 06-29-2023 ambulatory CHRIS MADSEN Not Available Start: 06-16-2023 End: 06-16-2023 ambulatory Samra Wick Other [employer] Other Start: 06-16-2023 Office outpatient vi sit 15 minutes Samra Wick [facility] [place] Start: 05-23-2023 Letter encounter [facility] Start: 10-12-2022 End: 10-13-[address] ROMAIN CAN Facility: Start: 09-20-2022 End: 09-20-2022 ambulatory Siobhan Meyers Other [employer] Other Start: 09-20-2022 Office outpatient vi sit 15 minutes Siobhan Luigi [facility] [place] Start: 06-30-2022 End: 06-30-2022 ambulatory Cassandra Dumont Other [employer] Other Start: 06-30-2022 Office outpatient vi sit 25 minutes Cassandra Dumont [facility] [place] Start: 12-18-2021 End: 12-18-2021 ambulatory Siobhanjuan m Meyers Other [employer] Other Start: 12-18-2021 Office outpatient vi sit 25 minutes Siobhan Luigi [facility] [place] Start: 07-30-2021 End: 10-29-2021 Patient encounter procedure MORALES ANGULO [facility] Start: 01-13-2021 End: 01-14-2021 Emergency department patient visit TITA EDWARDS [facility] Start: 01-13-2021 End: 01-13-2021 Emergency department patient visit Tita Edwards MD Work Phone: [facility] ED Comment on above: Chest pain, unspecif ied type (Primary Dx); Anxiety state Procedures Date Procedure Procedure Detail Performing Clinician Start: 05-01-2024 Arthrocentesis aspir &/inj major jt/bursa w/o us Dayana Woodard GLUING MACHINE FEEDER Work Phone: Start: 01-13-2021 Ct angiography chest w/contrast/noncontrast Tita [...] DTaP/Tdap/Td vaccine (2 - Td or Tdap) [facility] Work Phone: Start: 07-16-2030 Tetanus vaccination Tetanus (Td or Tdap) Booster [facility] Start: 11-28-2028 Cholesterol [Mass/volume] in Serum or Plasma Cholesterol [facility] Start: 11-10-2026 Screening for malignant neoplasm of colon Cologuard (Stool DNA) [facility] Start: 09-25-2024 End: 09-25-2024 Patient encounter procedure 09/25/2024 2:35 PM EST Office Visit [facility] [address] [place] [phone] Chris Madsen, CERTIFIED PROFESSIONAL MIDWIFE-BODY FORMER [address] [place] [address] [facility] Start: 06-26-2024 End: 05-22-2025 QUANTIFERON TB GOLD QUANTIFERON TB GOLD Lab Routine Psoriasis vulgaris (CMS/HCC) Psoriatic arthritis (CMS/HCC) High risk medication use Expected: 06/26/2024 (Approximate), Expires: 05/22/2025 [facility] Work Phone: Comment on above: Expected: 06/26/2024 (Approximate), Expi res: 05/22/2025 Start: 06-06-2024 End: 06-06-2024 Patient encounter procedure 06/06/2024 10:40 AM EST Procedure Visit [facility] [address] [id number] Pasquale Rosa DDS [address] [id number] [facility] Start: 05-22-2024 End: 05-22-2024 Patient encounter procedure [facility] Comment on above: Arrived Start: 05-15-2024 End: 05-15-2024 Patient encounter procedure 05/15/2024 11:00 AM EDT Office Visit [facility] [address] [place] [address] Dayana Woodard NP [address] [place] [address] [facility] Start: 05-01-2024 End: 05-01-2024 Patient encounter procedure 05/01/2024 11:30 AM EDT Office Visit [facility] [address] [facility] [address] [place] [address] Dayana Woodard NP [address] [facility] [address] [place] [address] Left shoulder pain, unspecified chronicity (Primary Dx); Arthritis of left acromioclavicular joint; Left shoulder tendonitis; Adhesive capsulitis of left shoulder [facility] Comment on above: Left shoulder pain, unspecified chronici ty (Primary Dx); Arthritis of left acromioclavicular joint; Left shoulder tendonitis; Adhesive capsulitis of left shoulder Start: 02-25-2024 End: 02-25-2024 Patient encounter procedure 02/25/2024 11:00 AM EDT Procedure Visit [facility] [address] [place] [address] Pasquale Rosa Syd [address] [place] [address] [facility] Start: 02-18-2024 End: 02-18-2024 Patient encounter procedure 02/18/2024 10:00 AM EDT Procedure Visit [facility] [address] [place] [address] Emory Devlin DDS [address] [place] [address] [facility] Start: 12-21-2023 End: 12-21-2023 Patient encounter procedure 12/21/2023 11:00 AM EDT Procedure Visit [facility] [address] [place] [address] Emory Devlin DDS [address] [place] [address] [facility] Start: 11-12-2023 Screening for malignant neoplasm of colon CRC Screening [facility] Start: 09-15-2023 End: 09-15-2023 Patient encounter procedure 09/15/2023 10:50 AM EST Procedure Visit [facility] [address] [place] [address] Pasquale Rosa, DDS [address] [place] [address] [facility] Start: 2023 Hepatitis B (HBV) Vaccine (optional start 60+ years) Hepatitis B (HBV) Vaccine (optional start 60+ years) [facility] Start: 2023 RSV vaccine (optional 60+ years) RSV vaccine (optional 60+ years) [facility] Start: 03-26-2023 COVID-19 Vaccine ( season) COVID-19 Vaccine ( season) [facility] Start: 03-26-2023 Influenza vaccination Influenza Vaccine (#1) [facility] Start: 03-26-2021 Influenza vaccination Flu vaccine (Season Ended) [facility] Phone: Start: 2013 Screening for malignant neoplasm of breast Breast cancer screen [facility] Phone: Start: 2013 Screening for malignant neoplasm of colon Colon cancer screen colonoscopy [facility] Phone: Start: 2013 Shingles (RZV) Vaccine (1 of 2) Shingles (RZV) Vaccine (1 of 2) [facility] Start: 2013 Shingles Vaccine (1 of 2) Shingles Vaccine (1 of 2) [employer] Phone: Start: 2008 Cholesterol [Mass/volume] in Serum or Plasma Cholesterol [facility] Start: 2008 Screening for malignant neoplasm of colon [facility] Start: 2003 Lipid panel Lipid screen [facility] Phone: Start: 2003 Screening for malignant neoplasm of breast Mammography [facility] Start: 1984 Screening for malignant neoplasm of cervix [facility] Start: 1982 Hepatitis A (HAV) Vaccine (optional [...] 1975 COVID-19 Vaccine (1) COVID-19 Vaccine (1) [facility] Phone: Start: 1963 COVID-19 Vaccine (#1) COVID-19 Vaccine (#1) [facility] Start: 1963 Hepatitis C screening Hepatitis C screen [facility] Phone: Start: 1963 Screening for malignant neoplasm of colon [facility] EKG 12 Lead EKG 12 Lead ECG Routine 01/13/2021 7:37 PM EDT [facility] Work Phone: Immunizations Immunization Date Immunization Notes Care Provider Fa michi 05-26-2021 influenza, injectabl e, quadrivalent, preservative free Maribel Waylon DDS Work Phone: [facility] 07-16-2020 tetanus toxoid, redu lima diphtheria toxoid, and acellular pertussis vaccine, adsorbed Maribel Waylon DDS Work Phone: [facility] Payers Date Payer Category Payer Unknown SP/UNINSURED PEN DING [employer]CIAL PRO[employer] EVALUATION 2023-Present Other [id number] 2020 Medicaid [id number] 2020 Medicaid (Managed Care) [employer] PARKER [id number] 1963 Unknown [id number] [id number]. 174 1963 Unknown [id number] [id number]. 593 1963 Unknown [id number] 2.16.840.1.898506.3.579.2. 732 1963 Unknown [id number] 2.16.840.1.377719.3.579.2. 732 1963 Unknown [id number] 2.16.840.1.101899.3.579.2. 732 1963 Unknown [id number] 2.16.840.1.168117.3.579.2. 732 1963 Unknown [id number] 2.16.840.1.772317.3.579.2. 173 1963 Unknown [id number] 2.16.840.1.995885.3.579.2. 1286 1963 Unknown [id number] 2.16.840.1.793637.3.579.2. 1286 1963 Unknown [id number] 2.16.840.1.371581.3.579.2. 1286 1963 Unknown [id number] 2.16.840.1.262747.3.579.2. 1259 1963 Unknown [id number] 2.16.840.1.872230.3.579.2. 1259 1963 Unknown [id number] 2.16.840.1.044034.3.579.2. 1259 1963 Unknown [id number] 2.16.840.1.829237.3.579.2. 1259 1963 Unknown [id number] 2.16.840.1.488460.3.579.2. 1259 1959 Medicaid [id number] Social History Date Type Detail Facility Start: 01-13-2021 End: 05-01-2024 Tobacco smoking status CTIS Never smoker [facility] Start: 01-13-2021 End: 05-01-2024 Tobacco use and exposure Never used [facility] Start: 01-13-2021 Alcohol intake Lifetime non-d melchor (finding) [facility] Work Phone: Start: 01-13-2021 History SDOH Alcohol Frequency 1 [facility] Work Phone: Start: 01-13-2021 Alcohol Comment occasional [employer] Work Phone: Start: 1965 Sex Assigned At Not on file [employer] Work Phone: Exposure to SARS-CoV -2 (event) Not sure [facility] Start: 11-18-2023 End: 05-22-2024 Sex Assigned At Female [facility] Tobacco smoking stat [facility] Tobacco smoking consumption unknown [facility] Start: 1965 Sex Assigned At Female F [facility] Start: 11-18-2023 End: 05-22-2024 History of Social function [facility] Start: 04-29-2024 Gender identity Identifies as female gender (finding) [facility] Start: 05-01-2024 End: 05-22-2024 Alcoholic beverage intake Ex-drinker (finding) [facility] Medical Equipment Procedure Code Equipment Code Equipment Origin al Text Equipment Identifier Dates USE TO CHECK BLO OD SUGAR ONCE A DAY Start: 04-14-2023 Clinical Notes 12-18-2021 to 05-22-2024 Chris Madsen, CERTIFIED PROFESSIONAL MIDWIFE-BODY FORMER - 05/22/2024 3:10 PM EDShea Woodard, GLUING MACHINE FEEDER - 05/01/2024 11:30 AM EDTDaniElba bhat, DDS - 12/21/2023 11:02 AM EDFELIPAMaribel grayson, DDS - 12/14/2023 11:08 AM EDT Note Date & Type Note Facility 05-22-2024 History of Present illness Narrative Images from the original note were not included. Follow up Diagnosis: Psoriasis/psoriatic arthritis Location: Face, elbows, back, lower legs, baseline BSA 60% and SPGA 4 Last visit: 11/18/2023, first follow up since starting biologic Symptoms: itching, has joint pain in left shoulder and feet Status: better but not as good as she was hoping Treatments tried and failed: TAC 0.1% cream Current treatment: Humira initiated on 11/18/2023, currently 40 mg every 2 weeks. Clobetasol cream (not using often) TAC 0.1% cream uses more often. Also using Eucerin cream for itching and Motrin for joint pain Negative TB 06/2023 All pertinent medical history, medications, and allergies were reviewed. General Exam: alert, oriented to person, place, and time, normal affect, well appearing Unaccompanied A focused exam completed based on patient reported problems, see below: 1. Psoriasis vulgaris (CMS/HCC) Well-marginated erythematous papules/plaques with silvery scale. Worse on Humira. BSA 12%. PASI 7.8 SPGA 4 The patient was informed that psoriasis is a chronic condition that can be controlled but not cured. Plan to switch to Taltz as patient is not clearing with Humira and continues to suffer with joint pain and itching. Start loading dose. May continue Clobetasol cream and TAC 0.1% cream BID prn. Will notify the patient once a determination is made. Patient is aware TB test is due in June and lab slip provided today. Related Procedures QUANTIFERON TB GOLD Related Medications adalimumab (Humira-Psoriasis/Uveit Starter) 80 MG/0.8ML & 40MG/0.4ML Pen-injector Kit pen-injector starter kit Inject 80 mg (contents of one pen) under the skin on day 1. Inject 40 mg (contents of one pen) under the skin on day 8 and day 22. triamcinolone (Kenalog) 0.1 % cream Apply to affected areas, up to twice a day when flared, do not use one the face, groin, or underarms, 30 day supply 2. Psoriatic arthritis (CMS/HCC) (2) Left Ankle - Anterior, Right Foot - Anterior Patient reports no improvement with Humira STOP Humira, Start loading dose of Taltz Related Procedures QUANTIFERON TB GOLD 3. High risk medication use Related Procedures QUANTIFERON TB GOLD Next Visit: 4 months documented in this encounter [facility] 05-01-2024 History of Present illness Narrative Associated Order(s): L Inj/Asp: L subacromial bursa Post-Procedure Diagnose(s): Left shoulder tendonitis Images from the original note were not included. Subjective Patient ID: Dayana Severino is a 58 y.o. female. LT Shoulder (Referral Kymberly Banegas) Pt is RT handed. Pt states about 2-3 months she woke up with LT shoulder pain and thought maybe she slept on it wrong but the pain has not went away, NKI. She has never injured this shoulder in the past. Pain is anterior and occas radiates to her mid bicep. Pain is constant. Pain at rest 6/10. Pain at worst 10/10 at night when she sleeps on her LT side. Admits waking at night if she rolls onto her LT side. Pain can be sharp with certain/quick movements. Limited ROM, difficulty lifting arm above her head. Denies N/T. Denies swelling. She took IBU once w/o relief. Denies ice, heat or creams. Denies locking/catching. TX: MRI/04/04/24/[facility], PCP 04/19/24, IBU Objective Left Shoulder Exam Range of Motion Active abduction: 170 Muscle Strength Abduction: 4-/5 Tests Badillo test: positive Drop arm: negative Shoulder Musculoskeletal Exam Inspection Left Ecchymosis: none Peripheral edema: none Atrophy: none Masses: none Palpation Left Tenderness: present Anterior shoulder: moderate AC joint: mild Range of Motion Left Active ROM: pain. Active forward elevation: 170. Shoulder active abduction: 170. Active external rotation at side: 50. Internal rotation: S1. Strength Left Abduction: 4-/5. Neurovascular Left Radial pulse: normal and 2+ Capillary refill: <3 sec Special Tests Left Rotator Cuff Signs Badillo test: positive Lift-off sign: negative Drop arm test: negative AC Joint Signs Active horizontal adduction pain: negative General Constitutional: appears stated age Neurological: alert and oriented x3 I reviewed the mri of the left shoulder done at [facility] on 04/04/24, reveals adhesive capsulitis and tendonitis, no fractures of lele tears noted. I reviewed the pcp note from 04/20/24 in regards to the left shoulder pain, she was establishing care with a new pcp. L Inj/Asp: L subacromial bursa on 05/01/2024 11:56 AM Indications: pain Details: 20 G needle, posterior approach Medications: 40 mg methylPREDNISolone acetate 40 MG/ML Utilizing aseptic technique with universal precautions . Pt given injection Left Shoulder SA space Procedure, treatment alternatives, risks and benefits explained, specific risks discussed. Consent was given by the patient. Patient was prepped and draped in the usual sterile fashion. Assessment/Plan Encounter Diagnoses: ICD-10-CM 1. Left shoulder pain, unspecified chronicity M25.512 2. Arthritis of left acromioclavicular joint M19.012 3. Left shoulder tendonitis M77.8 4. Adhesive capsulitis of left shoulder M75.02 Discussion of options, pt notes she would like an injection, side effects of bleeding and infection discussed, would like to proceed with the injection, using aspectic technique 40 mg of depo medrol was injected into the left shoulder subacromial space, pt tolerated well, bandaid applied, may do activities as tolerated, f/u in 2 weeks, discussed therapy but will wait to see if we can get some of the pain to decrease first. documented in this encounter [facility] 03-15-2024 Note Cardiovascular Medic [facility] SUBJECTIVE Dayana Severino is a 58 y.o. [...] Medications: Current Outpatient Medications: adalimumab (Humira,CF, Pen Mwoz-Nd-Qoif HS) 80 mg/0.8 mL-40 mg/0.4 mL pen [...] External ear normal. (more content not included)... [facility] 12-21-2023 History of Present illness Narrative ----- Thursday, December 21, 2023 at 11:49:45 AM ----- ----- Provider: [id number] Geovanny Elkins, -- Clinic: [place] ----- COMPOSITE RELIGIOUS Patient is scheduled for Mandaen on tooth #9 surface F5. Reviewed Medical History. Pt exhibited the following conditions: No significant medical history Patient is ready for treatment. Topical Benzocaine gel applied at the injection site for 2 minutes. Administered 1 carpules of Lidocaine, 2% with Epinephrine 1:100,000,. isolation achieved. Decay/existing bahai removed, cavity prepared. Selectively etched enamel with 37% phosphoric acid, rinsed, and blot dried. OptiBond hills applied and light-cured. Condensed packable composite shade A3 in light cured increments using Retraction cord with hemostatic gel Finished with finishing burs, checked occlusion, verified proximal contacts and bahai was polished. Rinsed and suctioned intraorally, advised patient to not eat until local anesthesia wears off. POST OPERATIVE Periapical (single) RADIOGRAPH TAKEN. Next Visit: Restorative ----- Signed on Thursday, December 21, 2023 at 3:48:00 PM ----- ----- Provider: [id number] Geovanny Sun DDS -- Clinic: [place] ----- documented in this encounter [facility] 12-14-2023 History of Present illness Narrative ----- Thursday, December 14, 2023 at 12:33:43 PM ----- ----- Provider: [id number] - Resident Anahi -- Clinic: [place] ----- COMPOSITE RELIGIOUS Patient is scheduled for Mandaen on tooth #18 surface DO. Reviewed Medical History. Pt exhibited the following conditions: No significant medical history Patient is ready for treatment. Topical Benzocaine gel applied at the injection site for 2 minutes. Administered 1 carpules of Lidocaine, 2% with Epinephrine 1:100,000,. Cotton roll isolation achieved. Decay/existing bahai removed, cavity prepared. Selectively etched enamel with 37% phosphoric acid, rinsed, and blot dried. Xeno IV hills applied and light-cured. Condensed packable composite shade A2 in light cured increments using Automatrix. Finished with finishing burs, checked occlusion, verified proximal contacts and bahai was polished. Rinsed and suctioned intraorally, advised patient to not eat until local anesthesia wears off. POST OPERATIVE Periapical (single) RADIOGRAPH TAKEN. Next Visit: Mercedes ----- Signed on Thursday, December 14, 2023 at 2:29:42 PM ----- ----- Provider: [id number] - Pasquale Martin DDS -- Clinic: [place] ----- documented in this encounter [facility] 09-10-2023 Note Patient here for [facility] low up 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 Still gets intermittent skips . Denies chest pain, SOB, and lightheadedness/syncope. Review of Systems Cardiovascular: Positive for irregular heartbeat and palpitations. All other systems reviewed and are negative. [facility] 09-10-2023 Note Cardiovascular Medic [facility] SUBJECTIVE Dayana Severino is a 58 y.o. [...] Left lower l (more content not included)... [facility] 07-30-2023 Note Cardiovascular Medic [facility] SUBJECTIVE Dayana Severino is a 58 y.o. [...] Behavior: Behavior anna (more content not included)... [facility] 07-30-2023 Note Review of Systems Cardiovascular: Positive for palpitations. Palpitaions every now and then pt feels well Pt also started januvia and cymbolta [facility] 06-16-2023 Evaluation note Encounter Date Diagnosis Assessment [...] no improvement in 2 to 3 days [facility] Other 03-20-2023 NoteCARDIAC STRESS TEST Requesting Physician: [...] seen. EKG portion is negative for ischemia.[id number] Evaluation [facility]* Encounter Date Diagnosis Assessment Notes [...] care provider if no improvement of symptoms [facility] Other 12-06-2022 Evaluation note* Encounter Date Diagnosis [...] other viral communicable diseases (ICD-10 - Z20.828) [facility] Other 05-26-2022 Evaluation note* Encounter Date Diagnosis Assessment Notes Treatment Notes Treatment Clinical Notes November, Cough (ICD-10 - R05.9) November, COVID-19 (ICD-10 - U07.1) Today you tested positive for the COVID virus. This mean you need to follow all CDC quarantine guidelines found at [email or web address] v. It is important to rest, increase [...] UP AND WHEN TO SEEK EMERGENCY TREATMENT [facility] Other Evaluation + Plan note No data available for this section [facility] Diagnosis Chest pain, unspecified type- Primary Anxiety state Anxiety state, unspecified documented in this encounter [employer] Phone: evaluation note* Diagnosis Onset Date Resolution Status Anxiety acute Bilateral foot pain acute Diabetes acute HTN (hypertension) acute Onychomycosis acute Psoriasis (a type of skin inflammation) acute [facility] Work Phone: Evaluation note* Diagnosis Left shoulder pain, unspecified chronicity- Primary Arthritis of left acromioclavicular joint Left shoulder tendonitis Adhesive capsulitis of left shoulder documented in this encounter [facility] HealthcareEvaluation note* Diagnosis Psoriasis vulgaris (CMS/HCC) Other psoriasis Psoriatic arthritis (CMS/HCC) Psoriatic arthropathy High risk medication use documented in this encounter [facility] HealthcareHistory general Narrative - Reported* Type Description Date Medical History Anxiety Medical History HTN (hypertension) Surgical History ablasion uterine [facility] Other History general Narrative - Reported* Type Description Date Medical History Anxiety Medical History HTN (hypertension) Surgical History ablasion uterine Hospitalization History Kidney Infection 1994 Hospitalization History chest pain [address] [facility] Other Hospital Discharge instructions* Attachments The following attachments cannot be sent through Care Everywhere. * Chest Pain (Romansh) * Anxiety Disorder (Romansh) [facility] Discharge instructions No data available for this section [facility] Summary Purpose Family History No Family History Records Found Relationship Condition Age at Onset Recorded Date/T mar father Diabetes mellitus Unknown Unknown mother Hypertension Unknown Advance Directives No Advanced Directives Records Found Advance Directive Response Recorded Date/ Time Advance Directives No March 7:54am Chief Complaint and Reason for Visit Chief Complaint est care Reason for Visit Anxiety Bilateral foot pain Diabetes HTN (hypertension) Onychomycosis Psoriasis (a type of skin inflammation) Reason for Referral Specialty Diagnoses / Procedures Referred By Jacob t Referred To Contact Orthopaedic Surgery Diagnoses Left shoulder tendonitis Procedures L Inj/Asp: L subacromial bursa Dayana Woodard NP [address] [place] [address] Referral ID Status Reason Start Date Expiration Date V isits Requested Visits Authorized [id number] Authorized 05/01/2024 10/28/2024 1 1 Additional Source Comments Reason for Visit (unrecogniz ed section and content) Reason Comments Chest Pain pt states she starte d having anxiety when she got to work around 89. she has a history of anxiety, but states she now feels short of breath and has chest pain. she used to take anxiety meds, but she doesn't take them anymore. Reason Comments Pain Reason Comments Follow-up PRN Active and Recently Administ ered Medications [...] DATE CREATED AUTHOR AUTHOR'S ORGANIZ ATION 02/11/2022 [facility] DATE CREATED AUTHOR AUTHOR'S ORGANIZ ATION 10/15/2022 [facility] DATE CREATED AUTHOR AUTHOR'S ORGANIZ ATION 12/27/2023 [facility] DATE CREATED AUTHOR AUTHOR'S ORGANIZ ATION 03/17/2024 [facility] DATE CREATED AUTHOR AUTHOR'S ORGANIZ ATION 04/06/2024 [facility] DATE CREATED AUTHOR AUTHOR'S ORGANIZ ATION 04/09/2024 [facility] DATE CREATED AUTHOR AUTHOR'S ORGANIZ ATION 05/23/2024 [facility] Care Teams (unrecognized sec tion and content) [...] End: April 19, 2024 Kymberly Banegas APRN GLUING MACHINE FEEDER-C Attending Provider Active Start: March End: April 19, 2024 Steel Spar Operator Relationship Specialty Start Date End Date Cassidy Escamilla NP [address] [place] [address] Referring Physician Family Medicine 05/01/24 Steel Spar Operator Relationship Specialty Start Date End Date Cassidy Escamilla NP [address] [place] [address] Referring Physician Family Medicine 05/01/24 Steel Spar Operator Relationship Specialty Start Date End Date Cassidy Escamilla NP [address] [place] [address] Referring Physician Family Medicine 05/01/24 Steel Spar Operator Relationship Specialty Start Date End Date Cassidy Escamilla NP [address] [place] [address] Referring Physician Family Medicine 05/01/24 Goals (unrecognized section and content) Goals may [...] BE BASED ON THE PRIMARY CLINICAL RECORDS. [employer] provides no warranty or guarantee of the accuracy or completeness of information in this document.
[2024-06-05 12:08] LABS: QuantiFERON-TB Gold Plus Negative (Negative)
== END 2024-06-02 14:27 | disposition home or self-care (01) ==
LOC: LAB 14:28
PROVIDERS: PCP Nurse Practitioner; Visit Provider Nurse Practitioner
DX: L40.0 Psoriasis vulgaris (principal); L40.50 Arthropathic psoriasis, unspecified; Z79.899 Other long term (current) drug therapy
CPT/HCPCS: 36415; 86480

== ENCOUNTER 2024-10-18 11:33 | Outpatient (OUT) | payer OTHER, SELFPAY ==
[2024-10-18 12:02] LABS: Estimated Average Glucose 194 mg/dL; Glycohemoglobin A1C 8.4 % (4.5-6.2)
[2024-10-18 12:33] LABS: Alanine Aminotransferase 157 U/L (14-59); Aspartate Amino Transferase 67 U/L (15-37); Chol HDL Ratio 3.3; Cholesterol 160 mg/dL (<=200); HDL Cholesterol 49 mg/dL (40-60); LDL Cholesterol Calculated 85.4 mg/dL; Thyroid Stimulating Hormone 3.299 uIU/mL (0.358-3.740); Triglycerides 128 mg/dL (<=150); VLDL CHOLESTEROL 25.6 mg/dL
== END 2024-10-18 11:34 | disposition home or self-care (01) ==
LOC: LAB 11:36
PROVIDERS: PCP Nurse Practitioner; Visit Provider Internal Medicine Cardiovascular Disease
DX: E78.00 Pure hypercholesterolemia, unspecified (principal); E03.9 Hypothyroidism, unspecified; E11.9 Type 2 diabetes mellitus without complications
CPT/HCPCS: 36415; 80061; 83036; 84443; 84450; 84460

== ENCOUNTER 2025-01-16 13:59 | Outpatient (RCR) | payer OTHER, SELFPAY | END 2025-01-30 08:29 | disposition home or self-care (01) | LOC: PT 13:59 | PROVIDERS: PCP Nurse Practitioner | DX: M54.50 Low back pain, unspecified (principal) | CPT/HCPCS: 97014; 97110; 97162 ==

== ENCOUNTER 2025-05-01 13:54 | Outpatient (OUT) | payer OTHER, SELFPAY ==
--- OUTSIDE RECORDS SUMMARY | 2023-01-15 04:15 | XMS_ITS | Continuity of Care Document ---
Demographics Address [address] [place] [address] Home Phone Preferred Language en Marital Status Unknown Rastafarian Affiliation Unknown Race Unknown Additional Race(s) Other Race Ethnic Group or Author Organization [facility] Address [address] [place] [address] Phone Care Team Providers Care Data Modeling Specialist Name Role Phone Jasmina Washburn DDS Unavailable Unavailable Allergies, Adverse Reactions, Alerts Substance Reaction Status Criticality No Known Allergies Active No Inform ation Procedures Procedure Date Oral Hygiene Instruction Limited Oral Eval Bitewig-single Film Panoramic Film Advance Directives Directive Yes / No Effective Date File Name No Information Encounters Encounter Description Practice Location Reason(s) For Visit Diagnoses Date Provider Providers Copied on Encounter [facility], [address] [place] [address], [id number], tel:[phone] Dental Clinic ER (chief complaint) Encounter for screening for dental disorders Wu Freedman. . tel:[phone] Family History Family Member Type Diagnosis Age At Onset No Information Payers Payer name Insurance type Covered alliance party ID Joselito galarza(s) aMris Molina Medicaid [employer] [id number] [facility] [id number] Social History Type Description Quantity Date Captured Comments Alcohol Use Details Unknown Caffeine Use Details Unknown Tobacco Use Status No Information Smoking Status No Information Sex Female Sexual Orientation Straight or heterosexual Gender Identity Female Vital Signs Date / Time: Height Weight BMI Pulse Rate Blood Pressure Temperature Respiratory Rate Body Surface Area Head Circumference Head Circ. Percentile Wt./Evelio. Percentile BMI percentile Pulse Ox Inhaled Ox 8:34 AM 72 /min 134/67 mm[Hg] 97.50 F Chief Complaint And Reason For Visit From encounter dated 01/15/2023 08:15'. ER (chief complaint). Description: ER Reason For Referral Reason For Referral No Information Plan Of Treatment Date Type Action Status Goal Mammogram. Due on due Goal Colonoscopy. Due on due Goal Zoster vaccine (1st). Due on due Goal Hep A. Due on du e Goal PRAPARE ASSESSMENT. Due on due Goal FOBT. Due on due Goal Lipid panel. Due on due Goal Tdap Vaccine. Due on 2022 due Goal Tdap. Due on due Goal Depression screening. Due on due Goal Influenza vaccine. Due on due History Of Present Illness Encounter Date Complaint History Of Prese nt Illness ER ER Functional Status Date Functional Assessmen t No Information Instructions Date Instruction Additional Infor mation No Information Assessments Type Assessment Date No Information Patient Care Teams Name Effective Dates (start - stop) Status Members No Information
--- OUTSIDE RECORDS SUMMARY | 2025-05-01 13:56 | XMS_ITS | Clinical Summary ---
Author Organization [facility] Address [address], [address] [address] Care Team Providers Care Web Manager Name Role Phone Austin Kent Primary Care Provider [phone] Allergies Active Allergy Reactions Criticality Noted Date Comments Black Pepper-Turmeric 11/18/2023 Other Reaction(s): sneezing Medications triamcinolone (KENALOG) 0.1 % cream APPLY TO AFFECED AREAS UP TO TWICE A DAY WHEN FLARED *DO NOT USE ON FACE/GROIN/UNDER ARMS* Active SITagliptin (JANUVIA) 25 MG tablet Take 1 tablet by mouth daily Active JANUVIA 100 MG tablet Take 1 tablet by mouth Active metFORMIN (GLUCOPHAGE) 500 MG tablet TAKE 1 TABLET BY MOUTH EVERY DAY WITH A MEAL FOR 90 DAYS Active losartan-hydroC HLOROthiazide (HYZAAR) 50-12.5 MG per tablet Take 1 tablet by mouth every morning 3 Active levothyroxine (SYNTHROID) 75 MCG tablet TAKE 1/2 A TABLET BY MOUTH IN THE MORNING ON AN EMPTY STOMACH 4 Active levothyroxine (SYNTHROID) 25 MCG tablet TAKE 1 TABLET BY MOUTH EVERY DAY IN THE MORNING ON AN EMPTY STOMACH FOR 30 DAYS 4 Active hydrOXYzine pamoate (VISTARIL) 25 MG capsule TAKE 1 CAPSULE BY MOUTH TWICE A DAY NEEDED 4 Active ONETOUCH ULTRA strip USE TO CHECK BLOOD SUGAR ONCE A DAY 4 Active DULoxetine (CYMBALTA) 60 MG extended release capsule TAKE 1 CAPSULE BY MOUTH EVERY DAY IN THE MORNING FOR 90 DAYS Active carvedilol (COREG) 12.5 MG tablet TAKE 1 TABLET (12.5 MG) BY MOUTH WITH BREAKFAST AND EVENING MEAL 4 Active aspirin 81 MG chewable tablet Take 1 tablet by mouth daily Active cetirizine (ZYRTEC) 10 MG tablet every 24 hours 3 Active clobetasol (TEMOVATE) 0.05 % cream 1 Application in the morning and 1 Application in the evening. 3 Active cyclobenzaprine (FLEXERIL) 10 MG tablet every 24 hours 3 Active albuterol sulfate HFA (PROVENTIL;VENT MANOLO;PROAIR) 108 (90 Base) MCG/ACT inhaler TAKE 1-2 PUFFS BY INHALATION ROUTE USING EVERY 4-6 HOURS NEEDED 3 Active HUMIRA, 2 PEN, 40 MG/0.4ML PNKT Inject 40 mg into the skin every 14 days 4 Active Adalimumab (HUMIRA-PSORIAS IS/UVEIT STARTER) 80 MG/0.8ML & 40MG/0.4ML PNKT Inject 80 mg (contents of one pen) under the skin on day 1. Inject 40 mg (contents of one pen) under the skin on day 8 and day 22. 4 Active TRULICITY 0.75 MG/0.5ML SOAJ SC injection as directed Subcutaneous once weekly for 28 days 5 Active TALTZ 80 MG/ML SOAJ prefilled syringe Inject into the skin 4 Active LOSARTAN POTASSIUM PO Losartan Potassium Active Active omeprazole (PRILOSEC) 40 MG delayed release capsule Take 1 capsule by mouth every morning (before breakfast) 30 capsule 5 5 Active Active Problems Problem Noted Date Diagnosed Date Chronic GERD 10/17/2024 Positive colorectal cancer screening using Colog uard test 03/31/2024 Benign hypertensive heart disease without heart failure 12/09/2022 Diabetes mellitus type II, non insulin dependent 12/09/2022 Mixed hyperlipidemia 12/09/2022 Resolved Problems Problem Noted Date Diagnosed Date Resolved Date Screening for colon cancer 03/31/2024 1 Family History Medical History Relation Name Comments Colon Cancer Neg Hx Colon Polyps Neg Hx Social History Tobacco Use Types Packs/Day Years Used Date Smoking Tobacco: Former Cigarettes Smokeless Tobacco: Never Tobacco Cessation:Counseling Given: Not Answered Comments:Very sporadic. Once every few months. Alcohol Use Standard Drinks/Week Comments Yes 0 (1 standard drink = 0.6 oz pur e alcohol) 1 beer every few Interpersonal Safety Domain Source: IP Abuse Scr eening Answer Date Recorded Physical abuse Denies 11/08/2024 Verbal abuse Denies 11/08/2024 Emotional abuse Denies 11/08/2024 Financial abuse Denies 11/08/2024 Sexual abuse Denies 11/08/2024 Comments No Sex and Gender Information Value Date Recorded Sex Assigned at Not on file Legal Sex Female 7:26 PM EDT Gender Identity Not on file Sexual Orientation Not on file Last Filed Vital Signs Vital Sign Reading Time Taken Comments Blood Pressure 141/77 11/08/2024 10:15 AM EDT Pulse 77 11/08/2024 10:15 AM EDT Temperature 36 C (96.8 F) 11/08/2024 9:36 AM EDT Respiratory Rate 15 11/08/2024 10:15 AM EDT Oxygen Saturation 93% 11/08/2024 10:15 AM EDT Inhaled Oxygen Concentration - - Weight 81.9 kg (180 lb 9.6 oz) 11/08/2024 7:45 A M EDT Height 157.5 cm (5' 2 ) 11/08/2024 7:45 AM EDT Body Mass Index 33.03 11/08/2024 7:45 AM EDT Plan of Treatment Health Maintenance Due Date Last Done Comments A1C test (Diabetic or Prediabetic) 1973 Diabetic foot exam 1973 Lipids 1973 Depression Screen 1975 HIV screen 1978 Diabetic Alb to Cr ratio (uACR) test 1981 Diabetic retinal exam 1981 Hepatitis C screen 1981 Pneumococcal 50+ years Vacci ne (1 of 2 - PCV) 1982 Pap smear 1984 Cervical cancer screen 1993 HPV (without or with Pap) 1993 Breast cancer screen 2003 FIT/FOBT: Average risk 2008 Sigmoidoscopy/CT colonography 2008 Shingles vaccine (1 of 2) 2013 Flu vaccine (#1) 02/23/2025 05/26/2021 COVID-19 Vaccine (1 - 2023-2 5 season) 2025 GFR test (Diabetes, CKD 3-4, OR last GFR 15-59) 10/25/2025 10/25/2024, 01/13/2021 Fecal-DNA (Cologuard): [place] ge risk 11/03/2026 11/04/2023, 10/02/2020 DTaP/Tdap/Td vaccine (2 - Td or Tdap) 07/16/2030 07/16/2020 Colonoscopy 03/31/2034 03/31/2024, 03/31/2024 Colorectal Cancer Screen 03/31/2034 Respiratory Syncytial Virus (RSV) or age 60 yrs+ (1 - 1-dose 75+ series) 2038 Hepatitis A vaccine Aged Out No longe r eligible based on patient's age to complete this topic Hepatitis B vaccine Aged Out No longe r eligible based on patient's age to complete this topic Hib vaccine Aged Out No longer eligi ble based on patient's age to complete this topic Meningococcal (ACWY) vaccine Aged Out No longer eligible based on patient's age to complete this topic Meningococcal B vaccine Aged Out No l onger eligible based on patient's age to complete this topic Polio vaccine Aged Out No longer elig ible based on patient's age to complete this topic Procedures Procedure Name Priority Date/Time Associated Diagnosis Comments BASIC METABOLIC PANEL Routine 10/25/2024 1:00 PM EDT Pre-op testing COLONOSCOPY PROCEDURE Routine 03/31/2024 9:52 AM EDT from Last 3 Months or Most Recently Relevant to Health Maintenance Results * (ABNORMAL) Basic Metabolic Panel (10/25/2024 1:00 PM EDT) Sodium 137 136 - 145 mmol/L 10/25/2024 1:00 PM EDT [facility] Potassium 4.1 3.7 - 5.3 mmol/L 10/25/2024 1:00 PM EDT [facility] Chloride 99 98 - 107 mmol/L 10/25/2024 1:00 PM EDT [facility] CO2 28 20 - 31 mmol/L 10/25/2024 1:00 PM EDT [facility] Anion Gap 10 9 - 16 mmol/L 10/25/2024 1:00 PM EDT [facility] Glucose 150(H) 74 - 99 mg/dL 10/25/2024 1:00 PM EDT [facility] BUN 11 8 - 23 mg/dL 10/25/2024 1:00 PM EDT [facility] Creatinine 0.7 0.50 - 0.90 mg/dL 10/25/2024 1:00 PM EDT [facility] Est, Glom Filt Rate >90 >60 mL/min/1.7 3m2 10/25/2024 1:00 PM EDT [facility] Comment: These results are not intended for use in patients <18 years of age. eGFR results are calculated without a race factor using the 2020 CKD-EPI equation. Careful clinical correlation is recommended, particularly when comparing to results calculated using previous equations. The CKD-EPI equation is less accurate in patients with extremes of muscle mass, extra-renal metabolism of creatine, excessive creatine ingestion, or following therapy that affects renal tubular secretion. BUN/Creatinine Ratio 16 9 - 20 10/25/2024 1:00 PM EDT [facility] Calcium 10.0 8.6 - 10.4 mg/dL 10/25/2024 1:00 PM EDT [facility] Blood BLOOD SPECIMEN / Unknown 10/25/2024 1:00 PM EDT 10/25/2024 1:01 PM EDT us Candy Scott DOG BOARDER - LOGISTICS SERVICE REPRESENTATIVE CHEMISTRY ORDERABLES Final Result [facility] [address] [phone] * Colonoscopy (03/31/2024 9:52 AM EDT) Narrative Epic, User - 03/31/2024 9:52 AM EDT No dictation Jhonatan Suarez MD ENDOSCOPY ORDERABLES Final R esult from Last 3 Months or Most Recently Relevant to Health Maintenance Insurance * Guarantor: Dayana Severino Account Type Relation to Patient Date of Phone Billing Address Personal/Family Self 1965 [address] [place] [address] [facility] MEDICAID Care Teams Web Manager Relationship Specialty Start Date End Date Austin Kent PA [address] [place] [address] PCP - General Physician Copper Etcher 09/25/24
--- OUTSIDE RECORDS SUMMARY | 2025-05-01 13:56 | XMS_ITS | Encounter Summary ---
Author Organization [facility] Address [address] [facility] [place] [address] Care Team Providers Care Stacker Tender Name Role Phone Unavailable Primary Care Provider Unavailabl e Encounter Details Date Type Department Care Team (Late st Contact Info) Description 12/14/2023 Abstract [facility] [address] [place], [place] [id number] Maribel Connors DDS [address] [place] [address] Social History Tobacco Use Types Packs/Day Years Used Date Smoking Tobacco: Never Assessed Comments Unknown Sex and Gender Information Value Date Recorded Sex Assigned at Not on file Legal Sex Female 4:08 PM EDT Gender Identity Not on file Sexual Orientation Not on file documented as of this encounter Plan of Treatment Not on file documented as of this encounter Procedures Procedure Name Priority Date/Time Associated Diagnosis Comments 18 DO POST 2 SRFC RESINBASED CMPST Routine 12/14/2023 12:00 AM EDT documented in this encounter Visit Diagnoses Not on filedocumented in this encounter
--- OUTSIDE RECORDS SUMMARY | 2025-05-01 13:56 | XMS_ITS | Encounter Summary ---
Author Organization [facility] Address [address] [place] [address] Care Team Providers Care Mysql Developer Name Role Phone Unavailable Primary Care Provider Unavailabl e Encounter Details Date Type Department Care Team (Late st Contact Info) Description 06/06/2024 Abstract [facility] [address] [place] [address] Provider, Marlyn Salter DDS [address] [place], [place] [id number] Social History Tobacco Use Types Packs/Day Years Used Date Smoking Tobacco: Never Assessed Comments Unknown Sex and Gender Information Value Date Recorded Sex Assigned at Not on file Legal Sex Female 4:08 PM EDT Gender Identity Not on file Sexual Orientation Not on file documented as of this encounter Plan of Treatment Scheduled Orders Name Type Priority Associated Diagnoses Orde r Schedule PERIODIC ORAL EVALUATION Dental Routine 1 Occurrences starting 04/09/2025 PROPHYLAXIS - ADULT Dental Routine 1 Occ urrences starting 04/09/2025 documented as of this encounter Visit Diagnoses Not on filedocumented in this encounter
--- OUTSIDE RECORDS SUMMARY | 2025-05-01 13:56 | XMS_ITS | Encounter Summary ---
Author Organization [facility] Address [address] [place] [address] Care Team Providers Care Astrochemist Name Role Phone Unavailable Primary Care Provider Unavailabl e Encounter Details Date Type Department Care Team (Late st Contact Info) Description 10/22/2023 Abstract [facility] [address] [place] [address] Provider, Marlyn Salter DDS [address] [place], [place] [id number] Social History Tobacco Use Types Packs/Day Years [...] Procedure Name Priority Date/Time Associated Diagnosis Comments PROPHYLAXIS - ADULT Routine 10/22/2023 12:00 AM EDT documented in this encounter Visit Diagnoses Not on filedocumented in this encounter
--- OUTSIDE RECORDS SUMMARY | 2025-05-01 13:56 | XMS_ITS | Clinical Summary ---
Author Organization [facility] Address [address] [place] [address] Care Team Providers Care Strategic Procurement Manager Name Role Phone Austin Kent Primary Care Provider [phone] Allergies Active Allergy Reactions Criticality Noted Date Comments Black Pepper-Turmeric 11/18/2023 Other Reaction(s): sneezing Medications aspirin 81 MG chewable tablet Chew 81 mg in the morning. Active carvedilol (Coreg) 12.5 MG tablet TAKE 1 TABLET (12.5 MG) BY MOUTH WITH BREAKFAST AND EVENING MEAL Active DULoxetine (Cymbalta) [address] capsule 1 (one) time each day at the same time 3 Active famotidine (Pepcid) 20 MG tablet 1 (one) time each day at the same time Active Lancets (OneTouch Delica Plus [id number]) misc USE TO CHECK BLOOD SUGAR ONCE A DAY 3 Active metFORMIN (Glucophage) 500 MG tablet TAKE 1 TABLET BY MOUTH TWICE A DAY WITH A MEAL FOR 30 DAYS Active Januvia 100 MG tablet 1 (one) time each day at the same time Active clobetasol (Temovate) 0.05 % cream 1 Application every 12 (twelve) hours 3 Active adalimumab (Humira-Psorias is/Uveit Starter) 80 MG/0.8ML & 40MG/0.4ML Pen-injector Kit pen-injector starter kitIndications: Plaque Psoriasis Inject 80 mg (contents of one pen) under the skin on day 1. Inject 40 mg (contents of one pen) under the skin on day 8 and day 22. 3 each 4 Active Additional Information Patient not taking.Reported on 08/10/2024 triamcinolone (Kenalog) 0.1 % creamIndication s:Psoriasis vulgaris Apply to affected areas, up to twice a day when flared, do not use one the face, groin, or underarms, 30 day supply 80 g 11 4 Active levothyroxine (Synthroid, Levoxyl) 75 MCG tablet TAKE 1/2 A TABLET BY MOUTH IN THE MORNING ON AN EMPTY STOMACH 4 Active omeprazole (PriLOSEC) [address] capsule TAKE 1 CAPSULE BY MOUTH EVERY DAY 30 MINUTES BEFORE MORNING MEAL FOR 90 DAYS Active ciclopirox (Penlac) 8 % solution APPLY TO AFFECTED AREA TOPICALLY DAILY AT BEDTIME FOR 4 WEEKS 4 Active Taltz 80 MG/ML injectionIndica tions:Plaque Psoriasis Inject 160 mg (contents of TWO auto-injectors) under the skin at week 0. Then inject 80 mg (contents of ONE auto-injector) under the skin at week 2. 3 each 4 Active Taltz 80 MG/ML injectionIndica tions:Plaque Psoriasis Inject the 80 mg (contents of ONE auto-injector) under the skin at weeks 4,6,8 and 10. 2 each 1 4 Active Taltz 80 MG/ML injectionIndica tions:Plaque Psoriasis Inject 1 mL (80 mg) under the skin every 28 (twenty-eight) days Inject 80 mg (contents of ONE auto-injector) under the skin at week 12 and every 4 weeks thereafter 1 each 11 4 Active Trulicity 0.75 MG/0.5ML solution auto-injector as directed Subcutaneous once weekly for 28 days 5 Active metFORMIN (Glucophage) 1000 MG tablet TAKE 1 TABLET BY MOUTH TWICE A DAY WITH A MEAL FOR 30 DAYS 5 Active meloxicam (Mobic) 15 MG tabletIndicatio ns:Acute pain of right shoulder Take 1 tablet (15 mg) by mouth Daily Take with food 30 tablet 1 5 06/09/20 25 Active Active Problems No known active problems Encounters Date Type Department Care Team Description 04/10/2025 10:45 AM EDT Office Visit [facility] [address] [address] Sukumar Valera PA Acute pain of right shoulder (Primary Dx); Arthritis of right acromioclavicular joint 04/10/2025 Bamboo flowsheet [facility] [address] [address] Sukumar Valera PA 04/10/2025 Travel 03/13/2025 10:45 AM EDT Ancillary Procedure [facility] [address] [address] 03/13/2025 10:15 AM EDT Office Visit [facility] [address] [address] Sukumar Valera PA Acute pain of right shoulder (Primary Dx); Arthritis of right acromioclavicular joint; Impingement of right shoulder 03/13/2025 Bamboo flowsheet [facility] [address] [address] Sukumar Valera PA 03/13/2025 Travel from Last 3 Months Family History Relation Name Status Comments Father Mother Alive Son Alive Social History Tobacco Use Types Packs/Day Years Used Date Smoking Tobacco: Never Smokeless Tobacco: Never Tobacco Cessation:Counseling Given: Not Answered Alcohol Use Standard Drinks/Week Comments Not Currently 0 (1 standard drink = 0.6 oz pur e alcohol) Comments Unknown Sex and Gender Information Value Date Recorded Sex Assigned at Female 04/29/2024 9:18 AM EDT Legal Sex Female 11:07 PM EDT Gender Identity Female 04/29/2024 9:18 AM EDT Sexual Orientation Not on file Last Filed Vital Signs Vital Sign Reading Time Taken Comments Blood Pressure - - Pulse - - Temperature - - Respiratory Rate - - Oxygen Saturation - - Inhaled Oxygen Concentration - - Weight 86.2 kg (190 lb) 05/22/2024 3:19 PM EDT Height 160 cm (5' 3 ) 05/01/2024 11:34 AM EDT Body Mass Index 33.66 05/01/2024 11:34 AM EDT Plan of Treatment Upcoming Encounters Date Type Department Care Team (Late st Contact Info) Description 05/08/2025 3:40 PM EDT Office Visit [facility] [place] [facility] [address] [place] [address] Ailin Madsen, MACHINE ICER-OFFAL WORKER [address] [place] [address] Procedures Procedure Name Priority Date/Time Associated Diagnosis Comments VT ARTHROCENTESIS ASPIR&/INJ MAJOR JT/BURSA W/O US Routine 03/13/2025 10:54 AM EDT Impingement of right shoulder XR SHOULDER 2+ VIEWS RIGHT Routine 03/13/2025 10:40 AM EDT Acute pain of right shoulder from Last 3 Months Results * VT ARTHROCENTESIS ASPIR&/INJ MAJOR JT/BURSA W/O US (03/13/2025 10:54 AM EDT) Narrative Sukumar Valera PA - 03/13/2025 10:54 AM EDT ESTELLA Darden 03/13/2025 11:02 AM L Inj/Asp: R subacromial bursa on 03/13/2025 10:54 AM Indications: pain Details: 21 G needle, posterior approach Medications: 40 mg methylPREDNISolone acetate 40 MG/ML; 1 mL bupivacaine PF 0.5 % Outcome: tolerated well, no immediate complications Utilizing aseptic technique with universal precautions . Pt given injection Right Shoulder SA space (Code 23442 RT) Procedure, treatment alternatives, risks and benefits explained, specific risks discussed. Consent was given by the patient. Patient was prepped and draped in the usual sterile fashion. us Sukumar SORIA IN CLINIC/BEDSIDE ORDERABLES Final Result * XR shoulder 2+ views right (03/13/2025 10:40 AM EDT) Anatomical Region Laterality Modality Upper Extremities, Shoulder Right Radi ographic Imaging Narrative 03/13/2025 10:53 AM EDT Imaging Result: Right Shoulder AP and Scap Y No acute fracture or dislocation Bone Structures clavicle and scapula and humeral head appear normal alignment Glenohumeral joint space maintained, moderate degenerative changes at AC joint. Soft tissues and limited visualized lung balderrama unremarkable Impression: Normal shoulder with no acute bony abnormalities. Sukumar SORIA IMG XR PROCEDURES Final Resul t from Last 3 Months Insurance * Guarantor: Dayana Severino Account Type Relation to Patient Date of Phone Billing Address Personal/Family Self 1965 [address] [place] [address] [place] [employer] Care Teams Strategic Procurement Manager Relationship Specialty Start Date End Date Austin Kent PA [address] [place], [place] [phone] PCP - General Family Medicine 03/13/25
--- OUTSIDE RECORDS SUMMARY | 2025-05-01 13:56 | XMS_ITS | Clinical Summary ---
Demographics Address [address] [place] [address] Mobile Phone Preferred Language en Marital Status Single Yazidism Affiliation Unknown Race Other Race Ethnic Group or Author Organization [facility] Address [address] [facility] [place] [address] Care Team Providers Care Geospatial Specialist Name Role Phone Unavailable Primary Care Provider Unavailabl e Source Comments The following information is NOT included in Care Everywhere downloads:Psychiatric notes, ECG results, Cardiac Rehab notes, Pulmonary Function notes, data from SmartForms (includes but not limited toPregnancy data,audiograms, eye exams, pre-surgical evaluation notes, well-child exam data).[facility] Immunizations Immunization Administration Dates Next Due Influenza, injectable, quadr ivalent, preservative free (XPD=440) 05/26/2021 Tdap (OCZ=248) 07/16/2020 Social History Tobacco Use Types Packs/Day Years Used Date Smoking Tobacco: Never Assessed Comments Unknown Sex and Gender Information Value Date Recorded Sex Assigned at Not on file Legal Sex Female 4:08 PM EDT Gender Identity Not on file Sexual Orientation Not on file Plan of Treatment Health Maintenance Due Date Last Done Comments Colonoscopy 1965 HIV Test 1978 Hepatitis A (HAV) Vaccine (optional start 19+ years) 1 Pap Smear 1984 Mammography 2003 CRC Screening 2008 Cholesterol 2008 Cologuard (Stool DNA) 2008 FIT 2008 Pneumococcal Vaccine(s) (50+ yrs) (1 of 1 - PCV) 05/12 Shingles (RZV) Vaccine (1 of 2) 2013 Hepatitis B (HBV) Vaccine (optional start 60+ years) 1 COVID-19 Vaccine (1 - 2023- season) 2025 Influenza Vaccine (#1) 2025 05/26/2021 Tetanus (Td or Tdap) Booster 07/16/2030 07/16/2020 RSV vaccine (adult) (1 - 1-dose 75+ series) 2038 Tdap Booster Completed 07/16/2020 Hepatitis C Antibody Completed 07/27/2023 Insurance * Guarantor: Dayana Severino Account Type Relation to Patient Date of Phone Billing Address Personal/Family Self 1965 [address] [place] [address] [place] [employer] * Guarantor: Dayana Severino Account Type Relation to Patient Date of Phone Billing Address Personal/Family Self 1965 [address] [place] [address] * Guarantor: Dayana Severino Account Type Relation to Patient Date of Phone Billing Address [facility] Self 1965 [address] [place] [address] [facility] [facility]
--- OUTSIDE RECORDS SUMMARY | 2025-05-01 13:56 | XMS_ITS | Encounter Summary ---
Author Organization [facility] Address [address] [place] [address] Care Team Providers Care Histological Illustrator Name Role Phone Unavailable Primary Care Provider Unavailabl e Encounter Details Date Type Department Care Team (Late st Contact Info) Description 12/21/2023 Abstract [facility] [address] [place], [place] [id number] Pasquale Rosa, MAGO [address] [place] [address] Social History Tobacco Use Types Packs/Day Years Used Date Smoking Tobacco: Never Assessed Comments Unknown Sex and Gender Information Value Date Recorded Sex Assigned at Not on file Legal Sex Female 4:08 PM EDT Gender Identity Not on file Sexual Orientation Not on file documented as of this encounter Plan of Treatment Scheduled Orders Name Type Priority Associated Diagnoses Orde r Schedule 30 O POST 1 SRFC RESINBASED CMPST Dental Routine 1 Occurrences s tarting 04/09/2025 documented as of this encounter Visit Diagnoses Not on filedocumented in this encounter
--- OUTSIDE RECORDS SUMMARY | 2025-05-01 13:56 | XMS_ITS | Encounter Summary ---
Author Organization [facility] Address [address] [place] [address] Care Team Providers Care Arborist Climber Name Role Phone Unavailable Primary Care Provider Unavailabl e Encounter Details Date Type Department Care Team (Late st Contact Info) Description 09/15/2023 Abstract [facility] [address] [place], [place] [phone] Delbert Parr DDS [address] [place] [address] Social History Tobacco Use Types Packs/Day Years [...] Procedure Name Priority Date/Time Associated Diagnosis Comments 4 EXTRACTION ERUPTED TOOTH/EXR Routine 09/15/2023 12:00 AM EST 31 EXTRACTION ERUPTED TOOTH/EXR Routine 09/15/2023 12:00 AM EST 1 EXTRACTION ERUPTED TOOTH/EXR Routine 09/15/2023 12:00 AM EST 12 EXTRACTION ERUPTED TOOTH/EXR Routine 09/15/2023 12:00 AM EST 19 EXTRACTION ERUPTED TOOTH/EXR Routine 09/15/2023 12:00 AM EST COMPREHENSVE ORAL EVALUATION Routine 09/15/2023 12:00 AM EST documented in this encounter Visit Diagnoses Not on filedocumented in this encounter
--- OUTSIDE RECORDS SUMMARY | 2025-05-01 13:56 | XMS_ITS | Clinical Summary ---
Author Organization [employer] tem Address [id number] [address] [place] [address] Care Team Providers Care Mouse Breeder Name Role Phone Kvng Carter MD Primary Care Provider + Allergies No known active allergies Social History Tobacco Use Types Packs/Day Years Used Date Smoking Tobacco: Never Assessed Childcare Answer Date Recorded Childcare Unknown 06/28/2020 Employment Answer Date Recorded Employment Unknown 06/28/2020 Purpose - Life Answer Date Recorded Purpose and direction in life Unknown Comments Unknown Sex and Gender Information Value Date Recorded Sex Assigned at Not on file Legal Sex Female 11:10 AM EST Gender Identity Not on file Sexual Orientation Not on file Plan of Treatment Health Maintenance Due Date Last Done Comments Depression Screening 1975 Tobacco Screening 1975 Adult BMI Screening 1981 Pap Smear 1984 Zoster (Shingles) Vaccine (1 of 2) 2013 Influenza Vaccine 03/26/2025 05/26/2021 DTaP,Tdap and Td Vaccines (2 - Td or Tdap) 07/16/2030 07/16/2020 Medical Devices Not on file Insurance * Guarantor: Dayana Severino Account Type Relation to Patient Date of Phone Billing Address Personal/Family Self 1965 [address] [place] [address] [facility] MEDICAID Care Teams Mouse Breeder Relationship Specialty Start Date End Date Kvng Carter MD [address] [place] [address] PCP - General Internal Medicine 06/28/20
--- OUTSIDE RECORDS SUMMARY | 2025-05-01 13:56 | XMS_ITS | Encounter Summary ---
Author Organization [facility] Address [address] [facility] [place] [address] Care Team Providers Care Forepart Laster Name Role Phone Unavailable Primary Care Provider Unavailabl e Encounter Details Date Type Department Care Team (Late st Contact Info) Description 12/21/2023 Abstract [facility] [address] [place], [place] [phone] Colleen Bro DDSyd [address] [place] [address] Social History Tobacco Use Types Packs/Day Years [...] Procedure Name Priority Date/Time Associated Diagnosis Comments 9 F(V) RESIN - ONE SURFACE, ANTERIOR Routine 12/21/2023 12:00 AM EDT documented in this encounter Visit Diagnoses Not on filedocumented in this encounter
--- NOTE | 2025-05-01 13:59 | MM_ITS ---
Patient Name: SANDRO STEELE MR#: [id number] : 1965 Exam Date: 05/01/2025 Ordering Doctor: [facility] REPORT PROCEDURE: MM TOMOSYNTHESIS SCREENING BI COMPARISON: MM TOMOSYNTHESIS SCREENING BI, 05/14/2023. INDICATIONS: Screening Calculator Name NCI Breast Cancer Risk Assessment Tool 5 Year Breast Cancer Risk 1.30% Lifetime Breast Cancer Risk 6.80% Personal Breast Cancer No Personal Ovarian Cancer No Treatments None Family Cancers None LOCATION: [facility] BREAST COMPOSITION: There are scattered areas of fibroglandular density. FINDINGS: DIAGNOSTIC CATEGORY 1--NEGATIVE. RIGHT BREAST: No significant suspicious finding. LEFT BREAST: No significant suspicious finding. RECOMMENDATIONS: ROUTINE MAMMOGRAM AND CLINICAL EVALUATION IN 12 MONTHS. Dictated by: Nate Bernstein DO on 05/01/2025 at 15:21 Approved by: Nate Bernstein DO on 05/01/2025 at 15:23
--- OUTSIDE RECORDS SUMMARY | 2025-05-01 14:06 | XMS_ITS | CCD ---
Author Organization [facility] Care Team Providers Care Extrusion Die Repairer Name Role Phone Unavailable Primary Care Provider Unavailabl e KEV, MORALES ALIE Primary Care Physician Siobhan Meyers Unavailable Cassandra Dumont Unavailable DR TREY CAN Consulting Unavailabl e ROSE MARIE ., FELIBERTO Attending Unavailable REQUEST, DR DHEERAJ LISTED Primary Care Unavaila ble ROSE MARIE ., FELIBERTO Admitting Unavailable DR MATTHEW GUERRERO Consulting Unavailable TERESSA OLIVEROS Consulting Unavailable ROSE MARIE ., FELIBERTO Consulting Unavailable Unavailable Primary Care Provider Unavailabl e Samra Wick Unavailable PROVIDER, UNKNOWN Admitting Unavailable DELBERT PARR Attending Unavaila ble PROVIDER, UNKNOWN Admitting Unavailable AMINA MAC Attending Unavailable PROVIDER, UNKNOWN Admitting Unavailable MARIBEL CONNORS Attending Unavailable PROVIDER, UNKNOWN Admitting Unavailable LILLY BROIA Attending Unavailable MITCHELL TELLEZ L Referring Unavailable KHORSAND KEV, MORALES Primary Care Unavailabl e SAPORITA, MITCHELL L Referring Unavailable KHORSAND KEV, MORALES Primary Care Unavailabl e SAPORITAMITCHELL L Attending Unavailable SAPORITA, MITCHELL L Referring Unavailable KHORSAND KEV, MORALES Primary Care Unavailabl e Andi COCOA POWDER MIXER OPERATOR, Cassidy Unavailable Unavailable Primary Care Provider UnavailAustin Laurent Primary Care Provider AUSTIN KENT Primary Care Unavailable CANDY SCHMIDT Referring Unavailable AUSTIN KENT Primary Care Unavailable CANDY SCHMIDT Referring Unavailable JHONATAN CRANE Admitting Unavailable JHONATAN CRANE Attending Unavailable JHONATAN CRANE Admitting Unavailable JHONATAN CRANE Attending Unavailable AUSTIN KENT Primary Care Unavailable Austin Alves Primary Care Provider SILAS RUBY Attending Unavailable SILAS RUBY Attending Unavailable JOSE VALERA Attending Unavailable JOSE VALERA Referring Unavailable DAYANA WOODARD Attending Unavailable CHRIS MADSEN Attending Unavailable CHRIS MADSEN Attending Unavailable JOSE VALERA Attending Unavailable Allergies Allergy Classification Reported Allergen(s) Allergy Type Date of Onset Reaction(s) Facility (19 sources) Black Pepper-Turmeric Drug Allergy 11-18-2023 [facility] Work Phone: Medications Current Medications Medication Drug Class(es) Dates Sig (Normalized) Sig (Original) 0.4 ml adalimumab 100 mg/ml auto-injector (20 sources) Tumor Necrosis Factor Ann Start: 05-03-2024 Humira, 2 Pen, 40 MG/0.4ML Auto-injector Kit 05/03/2024 Active Start: 09-28-2023 HUMIRA, 2 PEN, 40 MG/0.4ML PNKT Inject 40 mg into the skin every 14 days 09/28/2023 Active Start: 09-28-2023 End: 05-01-2024 Humira, 2 [...] and day 22. 3 each 09/09/2023 Active Adalimumab (HUMIRA-PSORIASIS/UVEIT STARTER) 80 MG/0.8ML & 40MG/0.4ML PNKT (3 sources) Start: 09-09-2023 Adalimumab (HUMIRA-PSORIASIS/UVEIT STARTER) 80 MG/0.8ML & 40MG/0.4ML PNKT Inject 80 mg (contents of one pen) under the skin on day 1. Inject 40 mg (contents of one pen) under the skin on day 8 and day 22. 09/09/2023 Active [id number] actuat albuterol 0.09 mg/actuat metered dose inhaler (6 sources) beta2-Adre nergic Agonist Start: 03-28-2023 take 1-2 puff(s) by inhalation every four to six hours as needed albuterol sulfate HFA (PROVENTIL;VENTOLIN;PROAI R) 108 (90 Base) MCG/ACT inhaler TAKE 1-2 PUFFS BY INHALATION ROUTE USING EVERY 4-6 HOURS NEEDED 03/28/2023 Active Start: 03-28-2023 End: 05-01-2024 take 1-2 puff(s) by inhalation every four to six hours as needed albuterol HFA 90 mcg/act inhaler TAKE 1-2 PUFFS BY INHALATION ROUTE USING EVERY 4-6 HOURS NEEDED 03/28/2023 05/01/2024 Discontinued (Med list cleanup) aspirin 81 mg delayed release oral tablet (20 sources) Platelet Aggregation Inhibitor, Nonsteroidal Anti-inflammatory Drug Start: 04-19-2024 take 81 mg by mouth once daily Aspirin Active 81 MG PO Daily April 19, 2024 12:00am aspirin 81 MG ch ewable tablet Chew 81 mg in the morning. Active calcium chloride 0.0014 meq/ml / potassium chloride 0.004 meq/ml / sodium chloride 0.103 meq/ml / sodium lactate 0.028 meq/ml injectable solution (1 source) Start: 11-08-2024 IntraVENous, a t 100 mL/hr, CONTINUOUS, Starting on Wed11/08/24 at 0830, Pre-op (day of surgery) carvedilol 12.5 mg oral tablet (20 sources) alpha-Adrenergi c Ann, beta-Adrenergic Ann Start: 11-01-2023 take 1 tablet by mouth at dinner carvedilol (COREG) 12.5 MG tablet TAKE 1 TABLET (12.5 MG) BY MOUTH WITH BREAKFAST AND EVENING MEAL 11/01/2023 Active Carvedilol Activ e cetirizine hydrochloride 10 mg oral tablet (6 sources) Histamine-1 Receptor Antagonist Start: 06-22-2023 cetirizine (ZYRTEC) 10 MG tablet every 24 hours 06/22/2023 Active Start: 06-22-2023 End: 05-01-2024 cetirizine (ZyrTEC) 10 MG ta blet 1 (one) time each day at the same time 06/22/2023 05/01/2024 Discontinued (Med list cleanup) ciclopirox 80 mg/ml topical solution (16 sources) Start: 04-19-2024 ciclopirox (Pe nlac) 8 % solution APPLY TO AFFECTED AREA TOPICALLY DAILY AT BEDTIME FOR 4 WEEKS 04/19/2024 Active Start: 04-19-2024 Ciclopirox Act mohini 1 APPLIC TOPICAL Daily at bedtime 6.6 April 19, 2024 12:00am clobetasol propionate 0.5 mg/ml topical cream (19 sources) Corticosteroid Start: 05-26-2023 clobetasol (Te movate) 0.05 % cream 1 Application every 12 (twelve) hours 05/26/2023 Active Start: 05-26-2023 clobetasol (TE MOVATE) 0.05 % cream 1 Application in the morning and 1 Application in the evening. 05/26/2023 Active cyclobenzaprine hydrochloride 10 mg oral tablet (6 sources) Muscle Relaxant Start: 06-22-2023 cyclobenzaprin e (FLEXERIL) 10 MG tablet every 24 hours 06/22/2023 Active Start: 06-22-2023 End: 05-01-2024 cyclobenzaprine (Flexeril) 1 0 MG tablet 1 (one) time each day at the same time 06/22/2023 05/01/2024 Discontinued (Med list cleanup) 0.5 ml dulaglutide 1.5 mg/ml auto-injector (12 sources) GLP-1 Receptor Agonist Start: 08-01-2024 Trulici ty 0.75 MG/0.5ML solution auto-injector as directed Subcutaneous once weekly for 28 days 08/01/2024 Active DULoxetine 60 mg delayed release oral capsule (20 sources) Serotonin and Norepinephrine Reuptake Inhibitor Start: [...] 90 Active famotidine 20 mg oral tablet (16 sources) Histamine-2 Receptor Antagonist famotidine (Pepcid) 20 MG tablet 1 (one) time each day at the same time Active hydroCHLOROthiazide 12.5 mg / losartan potassium 50 mg oral tablet (7 sources) Thiazide Diuretic, Angiotensin 2 Receptor Ann Start: 11-29-19 take 1 tablet by mouth once daily in the morning losartan-hydroCHL OROthiazide (HYZAAR) 50-12.5 MG per tablet Take 1 tablet by mouth every morning 11/28/2022 Active Start: 11-28-2022 End: 05-01-2024 take 1 tablet by mouth in the morning losartan-hydroCHLOROthiazide (Hyzaar) 50-12.5 MG tablet Take 1 tablet by mouth in the morning. 11/28/2022 05/01/2024 Discontinued (Med list cleanup) Hydrochlorothiazide-12.5 mg 12.5 mg (2 sources) take 1 tablet by mouth once daily Hydrochlorothiazide-12.5 mg 12.5 mg 1 tablet Orally Once a day Active hydrocortisone 10 mg/ml / neomycin 3.5 mg/ml / polymyxin b [id number] unt/ml otic solution (1 source) Aminoglycoside Antibacterial, Polymyxin-class Antibacterial, Corticosteroid Sta rt: 3 [id number]-Exlfhqtck-[id number] 4 drops into affected ear Otic Three times a day for 7 day(s) Aug, Active hydrOXYzine pamoate 25 mg oral capsule (4 sources) Antihistamine Sta rt: 4 take 1 capsule by mouth twice daily as needed hydrOXYzine pamoate (VISTARIL) 25 MG capsule TAKE 1 CAPSULE BY MOUTH TWICE A DAY NEEDED 12/17/2023 Active hydrOXYzine HCl Active ibuprofen 800 mg oral tablet (3 sources) Nonsteroidal Anti-inflammatory Drug Start: 11-03-2023 End: 11-08-2024 take 1 tablet by mouth every eight hours as needed ibuprofen (ADVIL;MOTRIN) 800 MG tablet TAKE 1 TABLET BY MOUTH EVERY 8 HOURS NEEDED WITH FOOD OR MILK 11/03/2023 11/08/2024 Discontinued (Stop Taking at Discharge) 1 ml ixekizumab 80 mg/ml auto-injector (20 sources) Interleukin-17A Antagonist Start: 06-06-2024 Taltz 80 MG/ML injection Indications: Plaque Psoriasis Inject 160 mg (contents of TWO auto-injectors) under the skin at week 0. Then inject 80 mg (contents of ONE auto-injector) under the skin at week 2. 3 each 06/06/2024 Active Start: 06-06-2024 inject 1 mL by subcu taneous injection once Taltz 80 MG/ML injection Indications: Plaque Psoriasis Inject 1 mL (80 mg) under the skin every 28 (twenty-eight) days Inject 80 mg (contents of ONE auto-injector) under the skin at week 12 and every 4 weeks thereafter 1 each 06/06/2024 Active Start: 06-06-2024 TALTZ 80 MG/ML SOAJ prefilled syringe Inject into the skin 06/06/2024 Active levothyroxine sodium 0.075 mg oral capsule (20 sources) l-Thyroxine Start: 04-19-2024 take 75 ug by mouth once daily Levothyroxine Active 75 MCG PO Daily April 19, 2024 12:00am Start: 01-23-2024 levothyroxine (Synthroid, Levoxyl) 75 MCG tablet TAKE 1/2 A TABLET BY MOUTH IN THE MORNING ON AN EMPTY STOMACH 01/23/2024 Active Start: 01-11-2024 take 1 tablet by bambi th once daily in the morning levothyroxine (SYNTHROID) 25 MCG tablet TAKE 1 TABLET BY MOUTH EVERY DAY IN THE MORNING ON AN EMPTY STOMACH FOR 30 DAYS 01/11/2024 Active Losartan (4 sources) Angiotensin 2 Receptor Ann L OSARTAN POTASSIUM PO Losartan Potassium Active Active Losartan Potassi um Active meloxicam 15 mg oral tablet (2 sources) Nonsteroidal Anti-inflammatory Drug Start: 04-10-2025 End: 06-09-2025 take 1 tablet by mouth once daily at mealtime meloxicam (Mobic) 15 MG tablet Indications: Acute pain of right shoulder Take 1 tablet (15 mg) by mouth Daily Take with food 30 tablet 1 04/10/2025 06/09/2025 Active metFORMIN hydrochloride 1000 mg oral tablet (20 sources) Biguanide Start: 08-01-2024 take 1 tablet by mouth twice daily at mealtime metFORMIN (Glucophage) 1000 MG tablet TAKE 1 TABLET BY MOUTH TWICE A DAY WITH A MEAL FOR 30 DAYS 08/01/2024 Active Start: 04-19-2024 take 500 mg by mouth once malcolm y Metformin Active 500 MG PO Daily April 19, 2024 12:00am take 1 tablet by bambi th twice daily at mealtime metFORMIN (Glucophage) 500 MG tablet TAKE 1 TABLET BY MOUTH TWICE A DAY WITH A MEAL FOR 30 DAYS Active omeprazole 40 mg delayed release oral capsule (20 sources) Proton Pump Inhibitor Start: 11-08-2024 take 1 capsule by mouth once daily before breakfast omeprazole (PRILOSEC) 40 MG delayed release capsule Take 1 capsule by mouth every morning (before breakfast) 30 capsule 5 11/08/2024 Active Start: 01-10-2024 End: 11-08-2024 omeprazole (PRILOSEC) 20 MG delayed release capsule TAKE 1 CAPSULE BY MOUTH EVERY DAY 30 MINUTES BEFORE MORNING MEAL FOR 90 DAYS 01/10/2024 11/08/2024 Discontinued (Stop Taking at Discharge) ondansetron 4 mg oral tablet (2 sources) [...] November, Active SITagliptin 100 mg oral tablet (20 sources) Dipeptidyl Peptidase 4 Inhibitor Start: 04-19-2024 take 1 tablet by mouth once daily Sitagliptin Phosphate (Januvia) 100 mg tablet Active 100 MG PO Daily April 19, 2024 12:00am take 1 tablet by mouth once malcolm y SITagliptin (JANUVIA) 25 MG tablet Take 1 tablet by mouth daily Active Januvia Active triamcinolone acetonide 1 mg/ml topical cream (19 sources) Corticosteroid Start: 11-18-2023 triamcinolone (Kenalog) 0.1 % cream Indications: Psoriasis vulgaris Apply to affected areas, up to twice a day when flared, do not use one the face, groin, or underarms, 30 day supply 80 g 11 11/18/2023 Active triamcinolone (K ENALOG) 0.1 % cream APPLY TO AFFECED AREAS UP TO TWICE A DAY WHEN FLARED *DO NOT USE ON FACE/GROIN/UNDER ARMS* Active Completed/Discontinued Medications Medication Drug Class(es) Dates Sig (Normalized) Sig (Original) 5 ml bupivacaine hydrochloride 5 mg/ml injection (4 sources) Amide Local Anesthetic Start: 03-13-2025 End: 03-13-2025 bupivacaine PF (Marcaine) 0.5 % injection 1 mL Start: 03-13-2025 End: 03-13-2025 1 mL, Injection, Once PRN Pr ocedure, Starting on Wed03/13/25 at 1054, For 1 dose iopamidol (ISOVUE-370) 76 % injection 100 mL (1 source) Start: 01-13-2021 End: 01-13-2021 iopamidol (ISOVUE-370) 76 % injection 100 mL 1 ml methylPREDNISolone acetate 40 mg/ml injection (9 sources) Corticosteroid Start: 03-13-2025 End: 03-13-2025 methylPREDNISolone acetate (DEPO-Medrol) injection 40 mg Start: 03-13-2025 End: 03-13-2025 40 mg, Intra-articular, Once PRN Procedure, Starting on Wed03/13/25 at 1054, For 1 dose Start: 05-01-2024 End: 05-01-2024 methylPREDNISolone acetate ( DEPO-Medrol) injection 40 mg Start: 05-01-2024 End: 05-01-2024 [...] Onset: 10-15-2022 Chronic Diabetes mellitus without complication (7 sources) Diabetes mellitus; Translations: [Type 2 diabetes mellitus without complications] Onset: 12-09-2022 04-19-2024 Chronic Disorders of lipid metabolism (6 sources) Hyperlipidemia, unspecified; Translations: [Mixed hyperlipidemia] Onset: 10-15-2022 02-08-2024 Chronic Esophageal disorders (5 sources) Gastroesophageal reflux disease; Translations: [Gastro-esophageal reflux disease without esophagitis] Onset: 10-17-2024 10-17-2024 Chronic Essential hypertension (5 sources) Essential (primary) hypertension; Translations: [Hypertensive disorder] Onset: 10-15-2022 04-19-2024 Chronic Hypertension with complications and secondary hypertension (3 sources) Benign hypertensive heart disease without congestive heart failure; Translations: [Hypertensive heart disease without heart failure] Onset: 12-09-2022 02-08-2024 Chronic Immunizations and screening for infectious disease (5 sources) Suspected clinical finding; Translations: [Contact with and (suspected) exposure to other viral communicable diseases] Episodic Mycoses (2 sources) Onychomycosis; Translations: [Tinea unguium] 04-19-2024 Episodic Nausea and vomiting (1 source) Nausea Episodic Nonspecific chest pain (7 sources) Chest pain; Translations: [Chest pain, unspecified] Onset: 10-12-2022 Episodic Osteoarthritis (6 sources) Arthritis of left acromioclavicular joint; Translations: [Primary osteoarthritis, left shoulder] 04-28-2024 Chronic Other aftercare (1 source) Other senior living (current) drug therapy; Translations: [OTH [facility] CURRENT DRUG THERAPY] Onset: 10-15-2022 Episodic Other aftercare (4 sources) Taking high risk medication; Translations: [Other senior living (current) drug therapy] 05-22-2024 Episodic Other connective [...] 04-19-2024 Chronic Other inflammatory condition of skin (4 sources) Psoriasis vulgaris; Translations: [Psoriasis vulgaris] 05-22-2024 Chronic Other inflammatory condition of skin (2 sources) Psoriatic arthritis; Translations: [Arthropathic psoriasis, unspecified] 05-22-2024 Chronic Other liver diseases (2 sources) Fatty (change of) liver, not elsewhere classified; Translations: [Fatty (change of) liver, not elsewhere classified] Onset: 12-09-2022 Chronic Other liver diseases (1 source) Abnormal levels of other serum enzymes; Translations: [ABNORMAL LEVELS OTHER SERUM ENZYMES] Onset: 10-15-2022 Episodic Other lower respiratory disease (4 sources) Cough; Translations: [Cough] Episodic Other non-traumatic joint disorders (2 sources) Pain in left shoulder; Translations: [Pain in joint, shoulder region] 04-28-2024 Episodic Other non-traumatic joint disorders (4 sources) Disorder of shoulder; Translations: [Other specified joint disorders, right shoulder] 03-13-2025 Episodic Other non-traumatic joint disorders (4 sources) Pain in right shoulder; Translations: [Pain in joint, shoulder region] 03-12-2025 Episodic Other upper respiratory infections (4 sources) [...] [NICOTINE DEPEND CIGARETTES UNCOMP] Onset: 10-15-2022 Chronic Thyroid disorders (2 sources) Hypothyroidism, unspecified; Translations: [Hypothyroidism, unspecified] Onset: 10-11-2024 Chronic Unclassified (1 source) CONTACT W/AND (SUSP) EXPOS COVID-19; Translations: [CONTACT W/AND (SUSP) EXPOS COVID-19] Onset: 10-15-2022 Unclassified (1 source) Patient encounter status 10-17-2024 Past or Other Problems Problem Classification Problem Date Documented Da te Episodic/Chronic Other gastrointestinal disorders (3 sources) Stool DNA-based colorectal cancer screening positive; Translations: [Other fecal abnormalities] Onset: 03-31-2024 03-31-2024 Episodic Other screening for suspected conditions (not mental disorders or infectious disease) (4 sources) Patient encounter status; Translations: [Encounter for screening for malignant neoplasm of colon] Onset: 03-31-2024 Resolved: 04-30-2024 04-30-2024 Episodic Unclassified (1 source) Exposure to 2019 novel coronavirus; Translations: [Contact with and (suspected) exposure to COVID19] Unclassified (1 source) Cough R05.9 Onset: 12-18-2021 Resolved: 12-18-2021 Viral infection (1 source) COVID-19 Onset: 12-18-2021 Resolved: 12-18-2021 Results Test Name Value Interpretation Reference Range Facility Office Visiton 04-06-2025 Follow-up visit [id number] Dayana Steele 1965 F Date Provider Department Center 04/06/2025 [id number] RUBY JOSE [facility] Family History Family Status - Relation Status Age at Mother Alive Father Sister Brother Level of Service:78057 NE OFFICE/OUTPATIENT ESTABLISHED MOD MDM 30 MIN Reason for Visit and Comments: Hypertension [827965] Hyperlipidemia [182] Follow-up [422941] - 6 month routine follow up Normal [facility] No Panel Informationon 03-13 ESTELLA Darden 03/13/2025 11:02 AM L Inj/Asp: R subacromial bursa on 03/13/2025 10:54 AM Indications: pain Details: 21 G needle, posterior approach Medications: 40 mg methylPREDNISolone acetate 40 MG/ML; 1 mL bupivacaine PF 0.5 % Outcome: tolerated well, no immediate complications Utilizing aseptic technique with universal precautions . Pt given injection Right Shoulder SA space (Code 52198 RT) Procedure, treatment alternatives, risks and benefits explained, specific risks discussed. Consent was given by the patient. Patient was prepped and draped in the usual sterile fashion. [facility] I Gotchu XR Shoulder - right 2 Viewso n 03-13-2025 Imaging Result: Right Shoulder AP and Scap Y No acute fracture or dislocation Bone Structures clavicle and scapula and humeral head appear normal alignment Glenohumeral joint space maintained, moderate degenerative changes at AC joint. Soft tissues and limited visualized lung balderrama unremarkable Impression: Normal shoulder with no acute bony abnormalities. [facility] Radiology Study observation (narrative) [facility] Glucose,Whole Bloodon 2024 Glucose [Mass/Vol] 189 mg/dL High 65-99 [facility] Surgical Pathology Reporton 11-08-2024 Surgical Pathology Report (NOTE) Path Number: [id number] -- Diagnosis -- A. Stomach antrum, biopsy: - Mild to moderate chronic inactive gastritis. - H. pylori stain is negative. Control reacts as expected. B. Body of stomach, biopsy: - Mild chronic inactive gastritis. - Negative for H. pylori organisms on JANNA stain. C. Distal esophagus, biopsy: - Squamous mucosa with mild reactive features. Flash Jaramillo M.D. Electronically Signed Out 11/10/2024 Clinical Information Pre-Op Diagnosis: CHRONIC GERD Operative Findings: ANTRUM OF THE STOMACH BX; BODY OF THE STOMACH BX; DISTAL ESOPHAGUS BX Operation Performed: EGD se Source of Specimen A: ANTRUM OF THE STOMACH BX B: BODY OF THE STOMACH BX C: DISTAL ESOPHAGUS BIOPSY Gross Description A. DAYANA STEELE, ANTRUM OF THE STOMACH BX Received in formalin are three mckeon-white tissue fragments from 0.3 to 0.5 cm and are 1.3 x 0.3 x 0.3 cm in aggregate. Entirely 1cs. B. DAYANA STEELE, BODY OF THE STOMACH BX Received in formalin are three mckeon-white tissue fragments from 0.2 to 0.7 cm and are 1.6 x 0.3 x 0.2 cm in aggregate. Entirely 1cs. C. DAYANA STEELE, DISTAL ESOPHAGUS BX Received in formalin are two mckeon-white tissue fragments each 0.5 cm and are 1.0 x 0.3 x 0.3 cm in aggregate. Entirely 1cs. jj tm Trey Silva M.D./se:11/08/2024 Microscopic Description A-C. Microscopic examination performed. H. pylori immunostain performed because no organisms apparent on JANNA. Processing Lab: [address] [id number] Interpretation Performed at [address] [id number] SURGICAL PATHOLOGY CONSULTATION Patient Name: DAYANA STEELE [facility] Rec: [id number] [facility] ANATOMIC PATHOLOGY [address] [facility]. [place] [id number] [facility] 36on 11-06-2024 36 Regarding lab result s from 10/18/2024: MD Yasemin Carreno MA Cholesterol is overall acceptable. Liver enzymes still elevated but better than before, HbA1c still significantly high and she needs much better control of her diabetes. Forward the result to PCP. Also advise the patient to talk to PCP regarding controlling her diabetes. LM for patient with above message per Dr. Ruby. Told her I would fax results to ESTELLA Ochoa. Normal [facility] Basic Metabolic Panelon 04-0 Anion gap [Moles/Vol] 10 mmol/L 9 - 16 mmol/L [facility] Calcium [Mass/Vol] 10 mg/dL 8.6 - 10. 4 mg/dL [facility] Chloride [Moles/Vol] 99 mmol/L 98 - 10 7 mmol/L [facility] CO2 [Moles/Vol] 28 mmol/L 20 - 31 mmol/L [facility] Creatinine [Mass/Vol] 0.7 mg/dL 0.50 - 0.90 mg/dL [facility] Est, Glom Filt Rate - PINF [facility] Comment on above: These results are not intended for use [...] following therapy that affects renal tubular secretion. Glucose [Mass/Vol] 150 mg/dL High 74 - 99 mg/dL [facility] Interpretation and review of laboratory results Abnormal [facility] Potassium [Moles/Vol] 4.1 mmol/L 3.7 - 5.3 mmol/L [facility] Sodium [Moles/Vol] 137 mmol/L 136 - 145 mmol/L [facility] Urea nitrogen [Mass/Vol] 11 mg/dL 8 - 23 mg/dL [facility] Urea nitrogen/Creatinine [Mass ratio] 16 mg/mg 9 - 20 [facility] Basic Metabolic Profon 10-25 Anion gap [Moles/Vol] 10 mmol/L Normal 9-16 [facility] Comment on above: Performed By: #### C DP, BMP #### [facility] [address] [place] [address] Methods Study Analyst: Flash Jaramillo MD BUN/CRE Ratio 16 Normal 9-20 [facility] Comment on above: Performed By: #### C DP, BMP #### [facility] [address] [place] [address] Methods Study Analyst: Flash Jaramillo MD Calcium [Mass/Vol] 10.0 mg/dL Normal 8.6-10.4 [facility] Comment on above: Performed By: #### C DP, BMP #### [facility] [address] [place] [address] Methods Study Analyst: Flash Jaramillo MD Chloride [Moles/Vol] 99 mmol/L Normal 98-107 [facility] Comment on above: Performed By: #### C DP, BMP #### [facility] [address] [place] [address] Methods Study Analyst: Flash Jaramillo MD CO2 [Moles/Vol] 28 mmol/L Normal 20- [facility] Comment on above: Performed By: #### C DP, BMP #### [facility] [address] [place] [address] Methods Study Analyst: Flash Jaramillo MD Creatinine [Mass/Vol] 0.7 mg/dL Normal 0.50-0.90 [facility] Comment on above: Performed By: #### C DP, BMP #### [facility] [address] [place] [address] Methods Study Analyst: Flash Jaramillo MD GFR/1.73 sq M.predicted among non-blacks MDRD (S/P/Bld) [Vol rate/Area] mL/min/{1.73_m2} Normal >60 [facility] Comment on above: Result Comment: These results are not intended for [...] following therapy that affects renal tubular secretion. Performed By: #### C DP, BMP #### [address] [place] [address] Methods Study Analyst: Flash Jaramillo MD Glucose [Mass/Vol] 150 mg/dL High 74-99 [facility] Comment on above: Performed By: #### C DP, BMP #### [address] [place] [address] Methods Study Analyst: Flash Jaramillo MD Potassium [Moles/Vol] 4.1 mmol/L Normal 3.7-5.3 [facility] Comment on above: Performed By: #### C DP, BMP #### [address] [place] [address] Methods Study Analyst: Flash Jaramillo MD Sodium [Moles/Vol] 137 mmol/L Normal 136-145 [facility] Comment on above: Performed By: #### C DP, BMP #### [facility] [address] [place] [address] Methods Study Analyst: Flash Jaramillo MD Urea nitrogen [Mass/Vol] 11 mg/dL Normal 8-23 [facility] Comment on above: Performed By: #### C EM, BMP #### [facility] [address] [place] [address] Methods Study Analyst: Flash Jaramillo MD CBC with Auto Differentialon 10-25-2024 Basophils (Bld) [#/Vol] 0.07 10*3/uL [facility] Basophils/100 WBC (Bld) 1 % 0 - 2 % [facility] Eosinophils (Bld) [#/Vol] 0.15 10*3/uL [facility] Eosinophils/100 WBC (Bld) 1 % 1 - 4 % [facility] Erythrocyte distribution width (RBC) [Ratio] 12.8 % 11.8 - 14.4 % [facility] Hematocrit (Bld) [Volume fraction] 42.6 % 36.3 - 47.1 % [facility] Hemoglobin (Bld) [Mass/Vol] 14.5 g/dL 11.9 - 15.1 g/dL [facility] Immature granulocytes (Bld) [#/Vol] 0.09 10*3/uL [facility] Immature granulocytes/100 WBC (Bld) 1 % High 0 [facility] Interpretation and review of laboratory results Abnormal [facility] Lymphocytes/100 WBC (Bld) 13 % Low 24 - 43 % [facility] Lymphocytes/100 WBC (Bld) 1.47 % [facility] MCH (RBC) [Entitic mass] 30.8 pg 25.2 - 33.5 pg [facility] MCHC (RBC) [Mass/Vol] 34 g/dL 28.4 - 34.8 g/dL [facility] MCV (RBC) [Entitic vol] 90.4 fL 82.6 - 102.9 fL [facility] Monocytes/100 WBC (Bld) 7 % 3 - 12 % [facility] Monocytes/100 WBC (Bld) 0.78 % [facility] Neutrophils/100 WBC (Bld) 77 % High 36 - 65 % [facility] Nucleated RBC/100 WBC (Bld) [Ratio] 0 % 0.0 per 100 WBC [facility] Platelet mean volume (Bld) [Entitic vol] 10.9 fL 8.1 - 13.5 fL [facility] Platelets (Bld) [#/Vol] 344 10*3/uL [facility] RBC (Bld) [#/Vol] 4.71 10*6/uL 3.95 - 5.1 1 m/uL [facility] Segmented neutrophils/100 WBC (Bld) 9.02 % High [facility] WBC other (Bld) [#/Vol] 11.6 High [facility] CBC with Diffon 10-25-2024 Abs. Basophil 0.07 k/uL Normal 0.00-0.20 [facility] Comment on above: Performed By: #### C DP, BMP #### [facility] [address] [place] [address] [address] [id number] Methods Study Analyst: Flash Jaramillo MD Abs.Imm.Granulocyte 0.09 k/uL Normal 0.00-0.30 [facility] Comment on above: Performed By: #### C DP, BMP #### [address] [place], [place] [id number] Methods Study Analyst: Flash Jaramillo MD Abs.Neutrophil (Seg) 9.02 k/uL High 1.50-8.10 [facility] Comment on above: Performed By: #### C DP, BMP #### [facility] [address] [place] [address] Dr[place], [place] [id number] Methods Study Analyst: Flash Jaramillo MD Basophils/100 WBC (Bld) 1 % Normal 0-2 [facility] Comment on above: Performed By: #### C DP, BMP #### [address] [place] [address] Methods Study Analyst: Flash Jaramillo MD Eosinophils (Bld) [#/Vol] 0.15 10*3/uL Normal 0.00-0.44 [facility] Comment on above: Performed By: #### C DP, BMP #### [facility] [address] [place] [address] [place] [address] Methods Study Analyst: Flash Jaramillo MD Eosinophils/100 WBC (Bld) 1 % Normal 1-4 [facility] Comment on above: Performed By: #### C DP, BMP #### [address] [place] [id number] Methods Study Analyst: lFash Jaramillo MD Erythrocyte distribution width (RBC) [Ratio] 12.8 % Normal 11.8-14.4 [facility] Comment on above: Performed By: #### C DP, BMP #### [address] [place], [place] [address] Methods Study Analyst: Flash Jaramillo MD Hematocrit (Bld) [Volume fraction] 42.6 % Normal 36.3-47.1 [facility] Comment on above: Performed By: #### C DP, BMP #### [address] [place] [address] Methods Study Analyst: Flash Jaramillo MD Hemoglobin (Bld) [Mass/Vol] 14.5 g/dL Normal 11.9-15.1 [facility] Comment on above: Performed By: #### C DP, BMP #### [address] [place] [address] Methods Study Analyst: Flash Jaramillo MD Immature granulocytes/100 WBC (Bld) 1 % High 0 [facility] Comment on above: Performed By: #### C DP, BMP #### [address] [place] [address] Methods Study Analyst: Flash Jaramillo MD Lymphocytes (Bld) [#/Vol] 1.47 10*3/uL Normal 1.10-3.70 [facility] Comment on above: Performed By: #### C DP, BMP #### [address] [place], [place] [id number] Methods Study Analyst: Flash Jaramillo MD Lymphocytes/100 WBC (Bld) 13 % Low 24-43 [facility] Comment on above: Performed By: #### C DP, BMP #### [address] [place], [place] [address] Methods Study Analyst: Flash Jaramillo MD MCH (RBC) [Entitic mass] 30.8 pg Normal 25.2-33.5 [facility] Comment on above: Performed By: #### C DP, BMP #### [address] [place] [id number] Methods Study Analyst: Flash Jaramillo MD MCHC (RBC) [Mass/Vol] 34.0 g/dL Normal 28.4-34.8 [facility] Comment on above: Performed By: #### C DP, BMP #### [address] [place], [place] [address] Methods Study Analyst: Flash Jaramillo MD MCV (RBC) [Entitic vol] 90.4 fL Normal 82.6-102.9 [facility] Comment on above: Performed By: #### C DP, BMP #### [address] [place], [facility] Methods Study Analyst: Flash Jaramillo MD Monocytes (Bld) [#/Vol] 0.78 10*3/uL Normal 0.10-1.20 [facility] Comment on above: Performed By: #### C DP, BMP #### [address] [place], [place] [id number] Methods Study Analyst: Flash Jaramillo MD Monocytes/100 WBC (Bld) 7 % Normal 3-12 [facility] Comment on above: Performed By: #### C DP, BMP #### [facility] [address] [place], [place] [id number] Methods Study Analyst: Flash Jaramillo MD Neutrophil (Seg) 77 % High 36-65 [facility] Comment on above: Performed By: #### C DP, BMP #### [facility] [address] [place] [address] Methods Study Analyst: Flash Jaramlilo MD NRBC Automated 0.0 per 100 WBC Normal 0.0 [facility] Comment on above: Performed By: #### C DP, BMP #### [facility] [address] [place], [place] [id number] Methods Study Analyst: Flash Jaramillo MD Platelet mean volume (Bld) [Entitic vol] 10.9 fL Normal 8.1-13.5 [facility] Comment on above: Performed By: #### C DP, BMP #### [address] [place], [place] [id number] Methods Study Analyst: Flash Jaramillo MD Platelets (Bld) [#/Vol] 344 10*3/uL Normal 138-453 [facility] Comment on above: Performed By: #### C DP, BMP #### [address] [place], [place] [id number] Methods Study Analyst: Flash Jaramillo MD RBC (Bld) [#/Vol] 4.71 10*6/uL Normal 3.95-5.11 [facility] Comment on above: Performed By: #### C DP, BMP #### [facility] [address] [place], [place] [id number] Methods Study Analyst: Flash Jaramillo MD WBC (Bld) [#/Vol] 11.6 10*3/uL High 3.5-11.3 [facility] Comment on above: Performed By: #### C DP, BMP #### [address] [place] [address] Methods Study Analyst: Flash Jaramillo MD EKG 12 LeadOrdered By: Tez Roman on 10-17-2024 Atrial Rate 91 BPM [employer] Work Phone: P Babb 28 degrees [employer] Work Phone: P-R Interval 144 ms [employer] Work Phone: Q-T Interval 348 ms [employer] Work Phone: QRS Duration 86 ms [employer] Work Phone: QTc Calculation (Bazett) 428 ms [employer] Work Phone: R Babb -29 degrees [employer] Phone: T Babb 25 degrees [employer] Phone: Ventricular Rate 91 BPM [employer] Work Phone: [employer] Phone: EKG 12 Leadon 10-17-2024 Normal sinus rhythm Moderate voltage criteria for LVH, may be normal variant ( R in aVL , Adolfo product ) Borderline ECG No previous ECGs available Confirmed by KVNG ROMAN ([id number]) on 10/17/2024 5:44:19 PM [facility] Kvng Roman MD - 10/17/2024 Normal sinus rhythm Moderate voltage criteria for LVH, may be normal variant ( R in aVL , Adolfo product ) Borderline ECG No previous ECGs available Confirmed by KVNG ROMAN ([id number]) on 10/17/2024 5:44:19 PM [employer] Office Visiton 10-11-2024 Follow-up visit [id number] Dayana Steele 1965 F Date Provider Department Center 10/11/2024 [id number] RU[facility] Family History Problem Relation Age of Onset No Known Problems Mother No Known Problems Father No Known Problems Sister No Known Problems Brother Family Status - Relation Status Age at Mother Father Sister Brother Level of Service:00160 NE OFFICE/OUTPATIENT ESTABLISHED LOW MDM 20 MIN Reason for Visit and Comments: Palpitations [600667] - Had thyroid function in Apr 2024. Denies chest pain and SOB. Says her main problem is indigestion when she eats. Normal [facility] No Panel Informationon 05-01 Dayana Woodard NP 05/01/2024 11:57 AM L Inj/Asp: L subacromial [...] and draped in the usual sterile fashion. [facility] MR SHOULDER LT WO CONTon MR SHOULDER [...] Pablo Henao MD on 04/05/2024 2:21 PM I, Bill Ma MD have personally reviewed the image(s) and agree with and/or edited the report Finalized by Bill Ma MD on 04/06/2024 4:12 PM Normal [facility] Glucose, Whole Bloodon 03-31 Glucose [Mass/Vol] 212 mg/dL High 74-100 [facility] Surgical Pathology Reporton 03-31-2024 Surgical Pathology Report (NOTE) Path Number: [id number] -- Diagnosis -- A. SIGMOID COLON POLYP, BIOPSY: Unremarkable colonic mucosa with benign lymphoid aggregate. B. RECTAL POLYP, BIOPSY: Hyperplastic polyp. Karime Chacon M.D. Electronically Signed Out kmg2/04/04/2024 Clinical Information Pre-op Diagnosis: SCREENING FOR COLON CANCER Operative Findings: SIGMOID COLON POLYP; RECTAL POLYP Operation Performed: COLONOSCOPY, POLYPECTOMY SNARE/BIOPSY tm Source of Specimen A: SIGMOID COLON POLYP B: RECTAL POLYP Gross Description A. DAYANA STEELE, SIGMOID COLON POLYP Received in formalin is one soft pink-mckeon fragment 0.6 x 0.4 x 0.3 cm. Entirely 1cs. B. DAYANA STEELE, RECTAL POLYP Received in formalin is one soft pink-mckeon fragment 0.5 x 0.3 x 0.3 cm. Entirely 1cs. jj kb Lester Lewis/tb1:04/04/2024 Microscopic Description A, B. Microscopic examination performed. Processing Lab: [address] [id number] Interpretation Performed at [address] [id number] SURGICAL PATHOLOGY CONSULTATION Patient Name: DAYANA STEELE [facility] Rec: [id number] [facility] [employer] [facility] ANATOMIC PATHOLOGY [address] [facility]. [place], [place] [address] Normal [facility] Progress Noteson 12-21-2023 Photo [employer] Authentication Interface Message Text ----- Thursday, December 21, 2023 at 11:49:45 AM ----- ----- Provider: [id number] - Resident Ibrahima -- Clinic: [place] ----- COMPOSITE SABIANIST Patient is scheduled for Restorationism on tooth #9 surface F5. Reviewed Medical History. Pt exhibited the following conditions: No significant medical history Patient is ready for treatment. Topical Benzocaine gel applied at the injection site for 2 minutes. Administered 1 carpules of Lidocaine, 2% with Epinephrine 1:100,000,. isolation achieved. Decay/existing restorationist removed, cavity prepared. Selectively etched enamel with 37% phosphoric acid, rinsed, and blot dried. OptiBond hills applied and light-cured. Condensed packable composite shade A3 in light cured increments using Retraction cord with hemostatic gel Finished with finishing burs, checked occlusion, verified proximal contacts and restorationist was polished. Rinsed and suctioned intraorally, advised patient to not eat until local anesthesia wears off. POST OPERATIVE Periapical (single) RADIOGRAPH TAKEN. Next Visit: Restorative ----- Signed on Thursday, December 21, 2023 at 3:48:00 PM ----- ----- Provider: [id number] - Chelsea Sun DDS -- Clinic: [place] ----- Normal [facility] Progress Noteson 12-14-2023 Photo Technologist Authentication Interface Message Text ----- Thursday, December 14, 2023 at 12:33:43 PM ----- ----- Provider: [id number] Resident Avi -- Clinic: [place] ----- COMPOSITE SABIANIST Patient is scheduled for Restorationism on tooth #18 surface DO. Reviewed Medical History. Pt exhibited the following conditions: No significant medical history Patient is ready for treatment. Topical Benzocaine gel applied at the injection site for 2 minutes. Administered 1 carpules of Lidocaine, 2% with Epinephrine 1:100,000,. Cotton roll isolation achieved. Decay/existing restorationist removed, cavity prepared. Selectively etched enamel with 37% phosphoric acid, rinsed, and blot dried. Xeno IV hills applied and light-cured. Condensed packable composite shade A2 in light cured increments using [employer]. Finished with finishing burs, checked occlusion, verified proximal contacts and restorationist was polished. Rinsed and suctioned intraorally, advised patient to not eat until local anesthesia wears off. POST OPERATIVE Periapical (single) RADIOGRAPH TAKEN. Next Visit: Mercedes ----- Signed on Thursday, December 14, 2023 at 2:29:42 PM ----- ----- Provider: [id number] - Pasquale Martin DDS -- Clinic: [place] ----- Normal [facility] Progress Noteson 10-22-2023 Photo Technologist Authentication Interface Message Text ----- Sunday, October 22, 2023 at 12:00:23 PM ----- ----- Provider: [id number] - Amina Mac Hygienist -- Clinic: [place] ----- [facility], Pt is ready for tx. Pt [...] RECALL/ 6months. Amina Gann RDH Normal [facility] Progress Noteson 09-15-2023 Photo Technologist Authentication Interface Message Text ----- Friday, September 15, 2023 at 11:18:51 AM ----- ----- Provider: [id number] - Delbert Bejarano Resident -- Clinic: [place] ----- INITIAL/COMPREHENSIVE EXAM Patient presents for an [...] ----- Provider: Mark Martin DDS -- Clinic: [place] ----- Normal [facility] COVID/FLU RT-PCRon SARS-CoV-2 (COVID-19) RNA RIDGE+probe Ql (Unsp spec) Negative [employer] Other COVID/FLU RT-PCR Negative [employer] Other CBC AUTO DIFFon 10-13-2022 BASO # 0.1 103/ul Normal 0.0-0.1 [facility] Comment on above: Performed By: #### P OCGLUC #### [facility] [address] [place] [address] [address] Gibson Jin Basophils/100 WBC (Bld) 1.0 % Normal 0.2-2.0 [facility] Comment on above: Performed By: #### P OCGLUC #### [facility] [address] [place] [address] [address] Gibson Jin EO # 0.2 103/ul Normal 0.0-0.7 [facility] Comment on above: Performed By: #### P OCGLUC #### [facility] [address] [place] [address] [address] Gibson Jin Eosinophils/100 WBC (Bld) 3.9 % Normal 0.9-7.0 [facility] Comment on above: Performed By: #### P OCGLUC #### [facility] [address] [place] [address] [address] Gibson Jin Erythrocyte distribution width (RBC) [Ratio] 12.4 % Normal 11.0-15.0 [facility] Comment on above: Performed By: #### P OCGLUC #### [facility] [address] [place] [address] [address] Gibson Jin Hematocrit (Bld) [Volume fraction] 43.4 % Normal 36.0-48.0 [facility] Comment on above: Performed By: #### P OCGLUC #### [facility] [address] [place] [address] [address] Gibson Jin Hemoglobin (Bld) [Mass/Vol] 14.7 g/dL Normal 12.0-16.0 [facility] Comment on above: Performed By: #### P OCGLUC #### [facility] [address] [place] [address] [address] Gibson Jin IG # 0.09 10e3/ul Critically high 0.00-0.03 [facility] Comment on above: Performed By: #### P OCGLUC #### [facility] [address] [place] [address] [address] Gibson Jin IG % 1.5 % Critically high 0.0-0.5 [facility] Comment on above: Performed By: #### P OCGLUC #### [facility] [address] [place] [address] Dr. Gibson Jin LYMPH # 1.2 103/ul Normal 1.2-3.8 [facility] Comment on above: Performed By: #### P OCGLUC #### [facility] [address] [place] [address] Dr. Gibson Jin Lymphocytes/100 WBC (Bld) 19.4 % Critically low 20.5-60.0 [facility] Comment on above: Performed By: #### P OCGLUC #### [facility] [address] [place] [address] Dr. Gibson Jin MANUAL DIFF REQ NO Normal [facility] Comment on above: Performed By: #### P OCGLUC #### [facility] [address] [place] [address] [address] Gibson Jin MCH (RBC) [Entitic mass] 30.2 pg Normal 26.7-34.0 [facility] Comment on above: Performed By: #### P OCGLUC #### [facility] [address] [place] [address] [address] Gibson Jin MCHC (RBC) [Mass/Vol] 33.9 g/dL Normal 29.9-35.2 [facility] Comment on above: Performed By: #### P OCGLUC #### [facility] [address] [place] [address] [address] Gibson Jin MCV (RBC) [Entitic vol] 89.1 fL Normal 81.0-99.0 [facility] Comment on above: Performed By: #### P OCGLUC #### [facility] [address] [place] [address] [address] Gibson Jin MONO # 0.4 103/ul Normal 0.3-0.8 [facility] Comment on above: Performed By: #### P OCGLUC #### [facility] [address] [place] [address] Dr. Gibson Jin Monocytes/100 WBC (Bld) 6.9 % Normal 1.7-12.0 [facility] Comment on above: Performed By: #### P OCGLUC #### [facility] [address] [place] [address] Dr. Gibson Jin NEUT # 4.1 103/ul Normal 1.4-6.5 [facility] Comment on above: Performed By: #### P OCGLUC #### [facility] [address] [place] [address] Dr. Gibson Jin Neutrophils/100 WBC (Bld) 67.3 % Normal 43.0-75.0 [facility] Comment on above: Performed By: #### P OCGLUC #### [facility] [address] [place] [address] Dr. Gibson Jin Platelet mean volume (Bld) [Entitic vol] 10.3 fL Normal 9.5-13.5 [facility] Comment on above: Performed By: #### P OCGLUC #### [facility] [address] [place] [address] Dr. Gibson Jin PLT 273 103/ul Normal 150-450 [facility] Comment on above: Performed By: #### P OCGLUC #### [facility] [address] [place] [address] Dr. Gibson Jin RBC 4.87 106/ul Normal 4.20-5.40 [facility] Comment on above: Performed By: #### P OCGLUC #### [facility] [address] [place] [address] Gibson Jin WBC 6.1 103/ul Normal 4.0-11.0 [facility] Comment on above: Performed By: #### P OCGLUC #### [facility] [id number] Gibson Jin ECHOCARDIO M/2D COMPLETEon 0 10-13-2022 ECHOCARDIO M/2D COMPLETE Patient: DAYANA STEELE Exam Date: 10/13/2022 : 1965 Gender:F Ordering : FELIBERTO TROTTER . Admission #: [id number] Family : Order #: [id number] CLICK HERE TO VIEW EXAM ECHOCARDIOGRAM REPORT [...] Mosquera M.D. on 10/13/2022 at 15:[address] [facility] GLYCOHEMOGLOBIN A1Con 2022 ADA RECOMMENDATION SEE BELOW Normal [facility] Comment on above: Result Comment: ADA RECOMMENDED LIMIT 4.0 - 6.0 ADA THERAPEUTIC TARGET < 7.0 ACTION SUGGESTED > 7.0 Performed By: #### A 1C #### [facility] [address] [place] [address] Dr. Gibson Jin Glucose [Mass/Vol] 197 mg/dL Normal [facility] Comment on above: Performed By: #### A 1C #### [facility] [address] [place] [address] Dr. Gibson Jin HbA1c (Bld) [Mass fraction] 8.5 % Critically high 4.5-6.2 [facility] Comment on above: Performed By: #### A 1C #### [facility] [address] [place], [place] [address] Dr. Gibson Jin LIPID PROFILEon 10-13-2022 CHOL-HDL RATIO NORM SEE BELOW Normal [facility] Comment on above: Result Comment: 3.3 - 4.4 LOW RISK 4.4 - 7.1 AVERAGE RISK 7.1 - 11.0 MODERATE RISK >11.0 HIGH RISK Performed By: #### T SH, CMP, LIPID #### [facility] [address] [place], [place] [address] Dr. Gibson Jin Cholesterol [Mass/Vol] 167 mg/dL Normal <=200 [facility] Comment on above: Performed By: #### T SH, CMP, LIPID #### [facility] [address] [address] [address] Gibson Jin Cholesterol in HDL [Mass/Vol] 45 mg/dL Normal 40-60 [facility] Comment on above: Performed By: #### T SH, CMP, LIPID #### [facility] [address] [address] [address] Gibson Jin Cholesterol in LDL [Mass/Vol] 93.4 mg/dL Normal [facility] Comment on above: Performed By: #### T SH, CMP, LIPID #### [facility] [address] [place], [place] [address] Dr. Gibson Jin Cholesterol.total/Chol esterol in HDL [Mass ratio] 3.7 {ratio} Normal [facility] Comment on above: Performed By: #### T SH, CMP, LIPID #### [facility] [address] [place], [place] [address] Dr. Gbison Jin HDL NORMAL > or = 60 mg/dl - LO W CARDIOVASCULAR RISK <40 mg/dl - HIGH CARDIOVASCULAR RISK Normal [facility] Comment on above: Performed By: #### T SH, CMP, LIPID #### [facility] [id number] Gibson Jin LDL CALC NORMAL SEE BELOW Normal [facility] Comment on above: Result Comment: <100 mg/dl OPTIMAL 100 - 129 mg/dl NEAR OR ABOVE OPTIMAL 130 - 159 mg/dl BORDERLINE HIGH 160 - 189 mg/dl HIGH >190 mg/dl VERY HIGH Performed By: #### T SH, CMP, LIPID #### [facility] [address] [place], [place] [address] Dr. Gibson Jin Triglyceride [Mass/Vol] 143 mg/dL Normal <=150 [facility] Comment on above: Performed By: #### T JENNIFER, CMP, LIPID #### [facility] [address] [place], [place] [address] Dr. Gibson Jin VLDL CALC 28.6 mg/dL Normal [facility] Comment on above: Performed By: #### T JENNIFER, CMP, LIPID #### [facility] [address] [place], [place] [address] Dr. Gibson Jin NM STRESS/REST MULTIon 10-13 NM STRESS/REST MULTI Patient: DAYANA STEELE Exam Date: 10/13/2022 : 1965 Gender:F Ordering : TER[facility] Admission #: [id number] Family : FELIBERTO TROTTER . Order #: [id number] CLICK HERE TO VIEW EXAM RADIOLOGY REPORT [...] medicine myocardial perfusion scan. Dictated by: Matthew Guerrero M.D. on 10/13/2022 at 14:58 Approved by: Matthew Guerrero M.D. on 10/13/2022 at 15:[address] [facility] POINT OF CARE GLUCOSEon 09-24 Glucose [Mass/Vol] 372 mg/dL Critically high 74-106 [facility] Comment on above: Performed By: #### P OCGLUC #### [facility] [address] [place] [address] Dr. Gibson Jin Glucose [Mass/Vol] 131 mg/dL Critically high 74-106 [facility] Comment on above: Performed By: #### P OCGLUC #### [facility] [address] [place] [address] Dr. Gibson Jin PROF 14(COMP METB)on 023 Albumin [Mass/Vol] 3.3 g/dL Critically low 3.4-5.0 [facility] Comment on above: Performed By: #### T SH, CMP, LIPID #### [facility] [address] [place] [address] Dr. Gibson Jin Albumin/Globulin [Mass ratio] 0.9 {ratio} Normal [facility] Comment on above: Performed By: #### T SH, CMP, LIPID #### [facility] [address] [place] [address] Dr. Gibson Jin ALP [Catalytic activity/Vol] 123 U/L Critically high 46-116 [facility] Comment on above: Performed By: #### T SH, CMP, LIPID #### [facility] [address] [place] [address] Dr. Gibson Jin ALT [Catalytic activity/Vol] 223 U/L Critically high 14-59 [facility] Comment on above: Performed By: #### T SH, CMP, LIPID #### [facility] [address] [place] [address] Dr. Gibson Jin Anion gap [Moles/Vol] 10.0 mmol/L Normal [facility] Comment on above: Performed By: #### T SH, CMP, LIPID #### [facility] [address] [address] [address] Gibson iJn AST [Catalytic activity/Vol] 113 U/L Critically high 15-37 [facility] Comment on above: Performed By: #### T SH, CMP, LIPID #### [facility] [address] [place] [address] Dr. Gibson Jin Bilirubin [Mass/Vol] 0.7 mg/dL Normal 0.2-1.0 [facility] Comment on above: Performed By: #### T JENNIFER, CMP, LIPID #### [facility] [address] [place] [address] Dr. Gibson Jin Calcium [Mass/Vol] 9.1 mg/dL Normal 8.5-10.1 [facility] Comment on above: Performed By: #### T JENNIFER, CMP, LIPID #### [facility] [address] [place] [address] Dr. Gibson Jin Chloride [Moles/Vol] 102 mmol/L Normal 98-107 [facility] Comment on above: Performed By: #### T JENNIFER, CMP, LIPID #### [facility] [address] [place] [address] Dr. Gibson Jin CO2 [Moles/Vol] 30.0 mmol/L Normal 21.0-32.0 [facility] Comment on above: Performed By: #### T SH, CMP, LIPID #### [facility] [address] [place] [address] Dr. Gibson Jin Creatinine [Mass/Vol] 0.73 mg/dL Normal 0.55-1.02 [facility] Comment on above: Performed By: #### T SH, CMP, LIPID #### [facility] [address] [place] [address] Dr. Gibson Jni EGFR-AF DANISH >60 Normal >=60 [facility] Comment on above: Performed By: #### T SH, CMP, LIPID #### [facility] [address] [address] [address] Gibson Jin EGFR-NON AF DANISH >60 Normal >=60 [facility] Comment on above: Performed By: #### T SH, CMP, LIPID #### [facility] [address] [address] [address] Gibson Jin Globulin (S) [Mass/Vol] 3.5 g/dL Normal [facility] Comment on above: Performed By: #### T SH, CMP, LIPID #### [facility] [address] [address] [address] Gibson Jin Glucose [Mass/Vol] 165 mg/dL Critically high 74-106 [facility] Comment on above: Performed By: #### T SH, CMP, LIPID #### [facility] [address] [place] [address] Dr. Gibson Jin Potassium [Moles/Vol] 4.0 mmol/L Normal 3.5-5.1 [facility] Comment on above: Performed By: #### T SH, CMP, LIPID #### [facility] [address] [address] [address] Gibson Jin Protein [Mass/Vol] 6.8 g/dL Normal 6.4-8.2 [facility] Comment on above: Performed By: #### T SH, CMP, LIPID #### [facility] [address] [place] [address] Dr. Gibson Jin Sodium [Moles/Vol] 138 mmol/L Normal 136-145 [facility] Comment on above: Performed By: #### T SH, CMP, LIPID #### [facility] [address] [address] [address] Gibson Jin Urea nitrogen [Mass/Vol] 14.0 mg/dL Normal 7.0-18.0 [facility] Comment on above: Performed By: #### T SH, CMP, LIPID #### [facility] [address] [place] [address] Dr. Gibson Jin Urea nitrogen/Creatinine [Mass ratio] 19.2 mg/mg Normal [facility] Comment on above: Performed By: #### T SH, CMP, LIPID #### [facility] [address] [address] [address] Gibson Jin TSHon 10-13-2022 TSH 3.011 uIU/mL Normal 0.358-3.740 The [facility] Comment on above: Performed By: #### T SH, CMP, LIPID #### [facility] [address] [address] [address] Gibson Jin US SINGLE QUAD RT [...] to patient's symptoms. Electronically authenticated by: MATTHEW GUERRERO Date: 2022-10-13 13:22 Normal [facility] CBC AUTO DIFFon 10-12-2022 BASO # 0.1 103/ul Normal 0.0-0.1 [facility] Comment on above: Performed By: #### C BC #### [facility] [address] [place] [address] Dr. Gibson Jin Basophils/100 WBC (Bld) 1.0 % Normal 0.2-2.0 [facility] Comment on above: Performed By: #### C BC #### [facility] [address] [place] [address] Dr. Gibson Jin EO # 0.2 103/ul Normal 0.0-0.7 [facility] Comment on above: Performed By: #### C BC #### [facility] [address] [place] [address] Dr. Gibson Jin Eosinophils/100 WBC (Bld) 2.2 % Normal 0.9-7.0 [facility] Comment on above: Performed By: #### C BC #### [facility] [address] [place] [address] Dr. Gibson Jin Erythrocyte distribution width (RBC) [Ratio] 12.1 % Normal 11.0-15.0 [facility] Comment on above: Performed By: #### C BC #### [facility] [address] [place] [address] Dr. Gibson Jin Hematocrit (Bld) [Volume fraction] 43.1 % Normal 36.0-48.0 [facility] Comment on above: Performed By: #### C BC #### [facility] [address] [place] [address] Dr. Gibson Jin Hemoglobin (Bld) [Mass/Vol] 15.1 g/dL Normal 12.0-16.0 [facility] Comment on above: Performed By: #### C BC #### [facility] [address] [place] [address] Dr. Gibson Jin IG # 0.06 10e3/ul Critically high 0.00-0.03 [facility] Comment on above: Performed By: #### C BC #### [facility] [address] [place] [address] Dr. Gibson Jin IG % 0.8 % Critically high 0.0-0.5 [facility] Comment on above: Performed By: #### C BC #### [facility] [address] [place] [address] Dr. Gibson Jin LYMPH # 1.5 103/ul Normal 1.2-3.8 [facility] Comment on above: Performed By: #### C BC #### [facility] [address] [place] [address] Dr. Gibson Jin Lymphocytes/100 WBC (Bld) 20.1 % Critically low 20.5-60.0 [facility] Comment on above: Performed By: #### C BC #### [facility] [address] [place] [address] Dr. Gibson Jin MANUAL DIFF REQ NO Normal [facility] Comment on above: Performed By: #### C BC #### [facility] [address] [place] [address] Dr. Gibson Jin MCH (RBC) [Entitic mass] 30.6 pg Normal 26.7-34.0 [facility] Comment on above: Performed By: #### C BC #### [facility] [address] [place] [address] Dr. Gibson Jin MCHC (RBC) [Mass/Vol] 35.0 g/dL Normal 29.9-35.2 [facility] Comment on above: Performed By: #### C BC #### [facility] [address] [place] [address] Dr. Gibson Jin MCV (RBC) [Entitic vol] 87.2 fL Normal 81.0-99.0 [facility] Comment on above: Performed By: #### C BC #### [facility] [address] [place] [address] Dr. Gibson Jin MONO # 0.5 103/ul Normal 0.3-0.8 [facility] Comment on above: Performed By: #### C BC #### [facility] [address] [place] [address] Dr. Gibson Jin Monocytes/100 WBC (Bld) 6.5 % Normal 1.7-12.0 [facility] Comment on above: Performed By: #### C BC #### [facility] [address] [place] [address] Dr. Gibson Jin NEUT # 5.0 103/ul Normal 1.4-6.5 [facility] Comment on above: Performed By: #### C BC #### [facility] [address] [place] [address] Dr. Gibson Jin Neutrophils/100 WBC (Bld) 69.4 % Normal 43.0-75.0 [facility] Comment on above: Performed By: #### C BC #### [facility] [address] [place] [address] Dr. Gibson Jin Platelet mean volume (Bld) [Entitic vol] 10.6 fL Normal 9.5-13.5 [facility] Comment on above: Performed By: #### C BC #### [facility] [address] [place] [address] Dr. Gibson Jin PLT 281 103/ul Normal 150-450 [facility] Comment on above: Performed By: #### C BC #### [facility] [address] [place] [address] Dr. Gibson Jin RBC 4.94 106/ul Normal 4.20-5.40 [facility] Comment on above: Performed By: #### C BC #### [facility] [address] [place] [address] Dr. Gibson Jin WBC 7.3 103/ul Normal 4.0-11.0 [facility] Comment on above: Performed By: #### C BC #### [facility] [address] [place] [address] Dr. Gibson [facility] SARS-CoV-2 (COVID-19) RNA RIDGE+probe Ql (Unsp spec) Not detected Normal NOT DETECTED [facility] Comment on above: Result Comment: [...] for this test is supported by the [employer] Inspector of Health and Human Service's declaration that [...] used). Performed By: #### P OCGLUC #### [facility] [address] [address] [address] Gibson Jin D-DIMERon 10-12-2022 D-DIMER 0.34 mg/L FEU Normal <=0.59 [facility] Comment on above: Performed By: #### P OCGLUC #### [facility] [address] [place] [address] Dr. Gibson Jin D-DIMER COMMENTS SEE BELOW Normal [facility] Comment on above: Result Comment: [...] hospitalization. Performed By: #### P OCGLUC #### [facility] [address] [place] [address] Dr. Gibson Jin DRUG SCREEN RAPID (URINE)on 10-12-2022 AMP Negative Normal NEGATIVE [facility] Comment on above: Performed By: #### P OCGLUC #### [facility] [address] [place] [address] Dr. Gibson Jin BAR Negative Normal NEGATIVE [facility] Comment on above: Performed By: #### P OCGLUC #### [facility] [address] [place] [address] Dr. Gibson Jin BUP Negative Normal NEGATIVE [facility] Comment on above: Performed By: #### P OCGLUC #### [facility] [address] [address] [address] Gibson Jin BZO Negative Normal NEGATIVE [facility] Comment on above: Performed By: #### P OCGLUC #### [facility] [address] [place] [address] Dr. Gibson Jin CANDACE Negative Normal NEGATIVE [facility] Comment on above: Performed By: #### P OCGLUC #### [facility] [address] [place] [address] Dr. Gibson Jin CUT-OFFS SEE BELOW Normal [facility] Comment on above: Result Comment: AMP (Amphetamine): 500ng/mL, BAR (Barbituates): 200 ng/mL, BZO (Benzodiazepines): 150 ng/mL, BUP (Buprenorphine): 10 ng/mL, CANDACE (Cocaine): 150 ng/mL, mAMP (Methamphetamine): 500 ng/mL, MTD (Methadone): 200 ng/mL, OPI (Opiates): 100 ng/mL, OXY (Oxycodone): 100 ng/mL, PCP (Phencyclidine): 25 ng/mL, PPX (Propoxyphene): 300 ng/mL, THC (Cannabinoids): 50 ng/mL, TCA (Trycyclic Antidepressants): 300 ng/mL Performed By: #### P OCGLUC #### [facility] [address] [place] [address] Dr. Gibson Jin DRUG CUT HEADER DRUG CLASS TEST SYSTEM CUT-OFF CONCENTRATIONS ARE FOLLOWS: Normal [facility] Comment on above: Performed By: #### P OCGLUC #### [facility] [address] [place] [address] Dr. Gibson Jin mAMP Negative Normal NEGATIVE [facility] Comment on above: Performed By: #### P OCGLUC #### [facility] [address] [place] [address] Dr. Gibson Jin MTD Negative Normal NEGATIVE [facility] Comment on above: Performed By: #### P OCGLUC #### [facility] [address] [place] [address] Dr. Gibson Jin OPI Positive Abnormal NEGATIVE [facility] Comment on above: Performed By: #### P OCGLUC #### [facility] [address] [place] [address] Dr. Gibson Jin OXY Negative Normal NEGATIVE [facility] Comment on above: Performed By: #### P OCGLUC #### [facility] [address] [place] [address] Dr. Gibson Jin PCP Negative Normal NEGATIVE [facility] Comment on above: Performed By: #### P OCGLUC #### [facility] [address] [address] [address] Gibson Jin PPX Negative Normal NEGATIVE [facility] Comment on above: Performed By: #### P OCGLUC #### [facility] [address] [address] [address] Gibson Jin TCA Negative Normal NEGATIVE [facility] Comment on above: Performed By: #### P OCGLUC #### [facility] [address] [address] [address] Gibson Jin THC Negative Normal NEGATIVE [facility] Comment on above: Performed By: #### P OCGLUC #### [facility] [address] [place] [address] Dr. Gibson Jin POINT OF CARE GLUCOSEon 09-24 Glucose [Mass/Vol] 220 mg/dL Critically high 74-106 [facility] Comment on above: Performed By: #### P OCGLUC #### [facility] [address] [place] [address] Dr. Gibson Jin Glucose [Mass/Vol] 298 mg/dL Critically high 74-106 [facility] Comment on above: Performed By: #### P OCGLUC #### [facility] [address] [place] [address] Dr. Gibson Jin PROF 14(COMP METB)on 023 Albumin [Mass/Vol] 3.7 g/dL Normal 3.4-5.0 [facility] Comment on above: Performed By: #### C KARLIE HSTROPN #### [facility] [address] [place] [address] Dr. Gibson Jin Albumin/Globulin [Mass ratio] 1.0 {ratio} Normal [facility] Comment on above: Performed By: #### C KARLIE HSTROPN #### [facility] [address] [place] [address] Dr. Gibson Jin ALP [Catalytic activity/Vol] 175 U/L Critically high 46-116 [facility] Comment on above: Performed By: #### C KARLIE HSTROPN #### [facility] [address] [place] [address] Dr. Gibson Jin ALT [Catalytic activity/Vol] 167 U/L Critically high 14-59 [facility] Comment on above: Performed By: #### C KARLIE, HSTROPN #### [facility] [address] [address] [address] Gibson Jin Anion gap [Moles/Vol] 10.6 mmol/L Normal Th e [facility] Comment on above: Performed By: #### C KARLIE, HSTROPN #### [facility] [address] [address] [address] Gibson Jin AST [Catalytic activity/Vol] 49 U/L Critically high 15-37 [facility] Comment on above: Performed By: #### C KARLIE, HSTROPN #### [facility] [address] [place] [address] Dr. Gibson Jin Bilirubin [Mass/Vol] 0.4 mg/dL Normal 0.2-1.0 [facility] Comment on above: Performed By: #### C KARLIE, HSTROPN #### [facility] [address] [place] [address] Dr. Gibson Jin Calcium [Mass/Vol] 9.1 mg/dL Normal 8.5-10.1 [facility] Comment on above: Performed By: #### C KARLIE, HSTROPN #### [facility] [address] [place] [address] Dr. Gibson Jin Chloride [Moles/Vol] 102 mmol/L Normal 98-107 [facility] Comment on above: Performed By: #### C KARLIE, HSTROPN #### [facility] [address] [place] [address] Dr. Gibson Jin CO2 [Moles/Vol] 26.8 mmol/L Normal 21.0-32.0 [facility] Comment on above: Performed By: #### C KARLIE, HSTROPN #### [facility] [address] [place] [address] Dr. Gibson Jin Creatinine [Mass/Vol] 0.90 mg/dL Normal 0.55-1.02 [facility] Comment on above: Performed By: #### C KARLIE, HSTROPN #### [facility] [address] [address] [address] Gibson Jin EGFR-AF DANISH >60 Normal >=60 [facility] Comment on above: Performed By: #### C MP, HSTROPN #### [facility] [address] [address] [address] Gibson Jin EGFR-NON AF DANISH >60 Normal >=60 [facility] Comment on above: Performed By: #### C MP, HSTROPN #### [facility] [address] [address] [address] Gibson Jin Globulin (S) [Mass/Vol] 3.6 g/dL Normal [facility] Comment on above: Performed By: #### C MP, HSTROPN #### [facility] [address] [address] [address] Gibson Jin Glucose [Mass/Vol] 288 mg/dL Critically high 74-106 [facility] Comment on above: Performed By: #### C MP, HSTROPN #### [facility] [address] [address] [address] Gibson Jin Potassium [Moles/Vol] 3.4 mmol/L Critically low 3.5-5.1 [facility] Comment on above: Performed By: #### C MP, HSTROPN #### [facility] [address] [address] [address] Gibson Jin Protein [Mass/Vol] 7.3 g/dL Normal 6.4-8.2 [facility] Comment on above: Performed By: #### C MP, HSTROPN #### [facility] [address] [address] [address] Gibson Jin Sodium [Moles/Vol] 136 mmol/L Normal 136-145 [facility] Comment on above: Performed By: #### C MP, HSTROPN #### [facility] [address] [address] [address] Gibson Jin Urea nitrogen [Mass/Vol] 13.0 mg/dL Normal 7.0-18.0 [facility] Comment on above: Performed By: #### C MP, HSTROPN #### [facility] [address] [address] [address] Gibson Jin Urea nitrogen/Creatinine [Mass ratio] 14.4 mg/mg Normal [facility] Comment on above: Performed By: #### C MP, HSTROPN #### [facility] [address] [address] [address] Gibson Jin TROPONIN, HIGH SENSITIVITYon 10-12-2022 HSTROP <4.0 Normal 4.0-51.3 [facility] Comment on above: Result Comment: CUT- OFF POINTS HAVE BEEN ESTABLISHED BASED ON THE FOURTH UNIVERSAL DEFINITIONS OF MYOCARDIAL INFARCTION. THE UPPER REFERENCE LIMIT (URL) OF TROPONIN, DEFINED THE 99TH PERCENTILE OF cTnI DISTRIBUTION IN A REFERENCE POPULATION, HAS BEEN CONFIRMED THE DECISION THRESHOLD FOR ID DIAGNOSIS. Performed By: #### P OCGLUC #### [facility] [address] [address] [address] Gibson Jin HSTROP <4.0 Normal 4.0-51.3 [facility] Comment on above: Result Comment: CUT- OFF POINTS HAVE BEEN ESTABLISHED BASED ON THE FOURTH UNIVERSAL DEFINITIONS OF MYOCARDIAL INFARCTION. THE UPPER REFERENCE LIMIT (URL) OF TROPONIN, DEFINED THE 99TH PERCENTILE OF cTnI DISTRIBUTION IN A REFERENCE POPULATION, HAS BEEN CONFIRMED THE DECISION THRESHOLD FOR ID DIAGNOSIS. Performed By: #### C MP, HSTROPN #### [facility] [address] [address] [address] Gibson Jin XR CHEST 1 Von [...] process. Stable chest. Electronically authenticated by: MATTHEW GUERRERO Date: 2022-10-12 10:[address] [facility] COVID + FLU Quick Testingon 09-20-2022 SARS-CoV-2 (COVID-19) RNA RIDGE+probe Ql (Unsp spec) Negative [facility] [employer] Other COVID + FLU Quick Testing Negative [facility] [employer] Other Quick Strepon 09-20-2022 S. pyogenes Org specific cx Ql (Throat) Negative [facility] [employer] Other Quick Strep [facility] [employer] Other COVID/FLU/RSV RT-PCRon 06-30 SARS-CoV-2 (COVID-19) RNA RIDGE+probe Ql (Unsp spec) Negative [facility] [employer] Other COVID/FLU/RSV RT-PCR Negative [facility] [employer] Other Registrationon 02-04-2022 Registration [id number]#1. 00CD:127 [facility] 01-09-2022 Consent [id number]#1 .00CD:127 [facility] COVID/FLU RT-PCRon 2 SARS-CoV-2 (COVID-19) RNA RIDGE+probe Ql (Unsp spec) Positive [facility] [employer] Other COVID/FLU RT-PCR Negative [facility] [employer] Other Coding Summary.on 08-04-2021 Coding Summary. CD:[id number] G h0bWw+PGhlYWQ+CD1LMXR kN57isLZolB2XA5aVDD8T ZLAFWQEMVF0CRJ4tvYL1R EzpK2KyhkLc SrqbyEIyGY55ZOp2YCP5j IwoLMgcnO9qsPVvU3h6Kc LvNS44jN62HKbbGAOtDlR 3LjZpbjsgbWFy D9pfTuPqkSPbOjn+PHRhY mxlIHdpZHRoPScxMDAlJy RhyPheZB5zZj2rKUCwKEK vbGxhcHNlOiBj q2cbAKUiIAqdJE5osDyoE 3HucZK1OCZba4k6Qz65gE I+CSKqDGM8xStmXIald13 5LiXqi3rnBZH8 pARhKXozCKF6H46gp7Q7O CXqXXYoQLT7jIE4zS7qtW elfqytM2RntHMkNzA0ZVB 7oSFnfT4pjPrf jwjifE0kNpq+J97YUQ2NQ CKUUC3RKlg1K4QwZzdypB I+MN20WOTmOA29kNDchZH fu1hdhNd5IsKe AXMiLFC1wAusOVvqd1EmB BYsW20gkBXvc3H5ARPrsD dhvDOlItZfjDV8yM8xLTe fualxu4ehmztv Yyaip9avoa65zW75B67wT TryLQLpZPM8LRMvCCGvgN ulpq2sjP6tQc9+FWfrn5c ox7gwqZv8XjBk XKNdocDdfOjuJHJ9x6ZmO i46U7HilRbyi0SxDdi3bl 88cFGkq2F1lVJ6VCtbEOH ujK4eSKbrXtQ7 ONBjCbJkxL95eHOzCBbvJ x4bxRxhrYkdQS2yTIWlox lpJDQdfZ0dFMYwxGVpxUn zER0kPFAwdilt r349QrEjEEM3RTWfdYTkC 6BzwC6oBwAmMVEuQRAbH3 NmuLFcMFweW574VOtpTdE 0MBHaqqGgN4Px YJLtwAgqIhL3l2M0Lq2Ic 0UzekueCEI2DLagHFTpFt UjGoXqIsH1J6JqZgt6SYM hxRqnSX0cZ5Sf NMYpevfuipiahSI6VOIqF MUrtM70pTCvKCiaUj3db1 Z1s162TJYrXZTacP64Bw9 udDogMTBwdCBU vE0ngzypf6anuhafBfYcV OLlVFe3NHs1IKPxbUiuHw KwKOY1AoQ9BAE7cWNimQ8 ufChcfgwifG3b Oyc+A34hlK7hFJF4UTU8d xnwBHFokmJwGD17KR95J8 RyPjwvdGFibGU+PGRpdiB exBnmHI8eGtHc e3uwc8AxOAzwJ5KmSKHrK EhdIzp2EARjUIM3rWJ2aW 0wXSKcTKfwg4S9zVR1O9T oneNtvs9oj8fr KDIuXOxvK21stECaj7P5K OOhyKC2GLOoqTonJlRpxO 93Oyc+ZYVmbTgjq3PbVet sf0dvg9okwHe2 EjCbFZHhbnFwqOcfYHB2f 8QwIm25N53vCIcwRREoAK ZlQGQgREJnvJdgcg0gxT5 wIi8+PGNvbCB3 dMH3aH5iWRJyPlS3FEeaH 621CjZbpSMvThroa7hqm0 whgKj4FpKyZUWywvNsuBj wLOK5j4LqDf30 G25tYNkkTHTiTQWrWUHxE RIyhXkdje9xrX7wOt2+PC 1un0atmm79wN09fCD+PHR tVSH4gWagLWdn TXVtlF9xYSbnMnC6HHYqI qHdwL26dTUxPTngVo4miR yrgVnkKU9fDXGtwulls68 5WbXyg9qsPNHk jDFkSHzlPVH9K49yc4A1F RMoIQFpWMD7pGO9qU1ktS lnbjogbGVmdDsgdmVydGl cIMubQKafS710 IHRvcDsnPlBhdGllbnQgT iSdCGi7F9CaMng4PMQwsT gnAV6fkPUoXAwxDa4otTk vyDsyYX3aOTOn jydkt880UrPbr4abELEno HVjFKgyAGV2T52zt6Y6UK KzWPRgHZU4sFA1jC1jfYx nbjogbGVmdDsg fjHnwLlkCEcjCQlkA996T HRvcDsnPkJpcnRoIERhdG S4LM21RQ83aPEcc8F6pYQ 4J6EqXXDrlkck vbnekSM4PHSnALGvrF59I m1loChxSm2aUODxBVL9YW UsvZSnL7LbzO5hJzNhOEU wNXVxV2GpsKTu HDndD766XLftUyP4TCUhb sFvH0CsALHvqRkaZtE6p4 M9Rw2CF3Y4JN81FX59vPX gs2S6lKN5X7Bx RNEnogxmnarfuCK0JMEyT PUuzR31Vc0smFuiUd8xHV AcFUM6ROBlmNSfA2XmfM3 yOiAjMDAwMDAw T3CueYDjMJfzD052CFolQ lH8DILypkRsY6DmLGPdzL eiNuA1t9V7Ht1KYRv7UM7 5PU83hJIrp9B2 sQA7D1HoHVImsqytkhfoe ZF2KBLmYWKnfL38El6htC ooNu6jCZThGGN6YGQtuLL gU9SsxL1tQcZh NHGuMTKqM8ReqLVdVZbfV 191NUshLiJ2DFFiwxLkF1 XhJJVbyTjvTcK4z1Z5Wh3 STKIvCX53YRD4 mVX3SE03GL28P5GlFkuzm GFibGU+PHRhYmxlIHdpZH RoPScxMDAlJyBzdHlsZT0 uLd3sTMHgDRGp pOhgjDTmWkJoz7xlLTQwZ CafXG0yyAupB4ItePW5NV Mgx9g2Yp63D93uT5OuiKI +OKSenYW9jBT8 jD5hDdBdVcA3RUbzS796M nPapCXeKimis7qog1aayN g8AtK6PLXlwpKtmZscUZZ 1q9AmCd61R73n IHdpZHRoPSIxNSUiIHZhb Ibwxw1sjK4nUd7+PGNvbC V5jRN7gI6zHoLtMkM0TFd bF778SyOrwEGk Zakiq2mto0dhjUq9RhJaO ZKqppLsrJmsMEY0b4XyUq 33Y1RpkOpld2YfHwq3wv2 2gACet5U8iLW3 L6FzTLKfwhlgjMNxsZzjH E0fUGKtbusvKLOxuL3uJC YrX9k9VsMbJkP1GHxfY0J urzK9SKUxsTVc DPtlMRQ7X63xc0I2HRQnX OHtZNE1iUL2eS3stYxsnu ogbGVmdDsgdmVydGljYWw dGQgiK435EBZx nEdiCWXopF3nAYEaiCUim AqrWJ9kIRFedxarYhjOFx NJQSwgTUFSSUEgRDwvdGQ +RWPzYHU8vByq RDyxESHbyS4oXZWhK3p1V jAmJpF4SWsvA5FnCVQkux prXl33nB9hQyStBoW8CWy tW2TkjmS7WDYv jGKjTEziUOP7L37zo4L3Y WAcMMKoOEM6fIU3pT8vtC lnbjogbGVmdDsgdmVydGl dTPkgXWdnN094 ZGRqqXzoBfLhUdJ6YfE8U oC1G1KbXho4XCOwcGkfBO 1rjXGcBSydId6ljJmhlSh iNL0wWTEhgmck IGOzlU2pYZXbiQKpnJdlZ S6sPBDfllcgw302VjZrNG C9ULDoyCKtG5QpaT0iCnS fWWQsJWKzE3Ya ePYxMTgsL303IJfhAzC6X ZBnfaVlK0IrJSOntNtjEx B4c8P7Cp44KVMZLKWvoyb vdGQ+PHRkIHN0 zMhhJItrNVOtvL1nLQYrB 2r4ZyGeFiV5TMfhH9SvMD YcmzxlMl26mP9oHzHeRhZ 7LLaiO4TneyW8 VBTxaHXyUJaiJUE7D58jk 6P5ZDTcZROeTFS6uVD8hK 1hbGlnbjogbGVmdDsgdmV ydGljYWwtYWxp Y798QYSbjNwjKhSadXJnQ TwvdGQ+DVVrYLV3xHabRY xrCYKooU8dUFFoQ6i8QdV gNhV4BNxfZ8Dv FFWiegblRh55fP9hXrJqO bB3KQptY6RkpzG9MBXcwM JeVApuFYJ9T65np0T2QZI cZMLvNID5sQJ5 rA8biByjygmxhPLgjGgjs iAodNygIBqeNWehM916FS WmaFooBtJhE2RulaztXxp vdGQ+YN31gt40 P4KfFmfoEjh7QVFeXAF6e UE7gL5jEWZxNEybr4S1hR Q5H2IyvbQhkh9ue8ojFWO aMHmyB50toUXx u5U3RDGwgAR1VWNmoOvoL oUtrH49Gqt+PGNvbGdyb3 YkBwkky7ejj1jtzSs3SoT wJSIgdmFsaWdu FSW4l5VxZa29Z42uMAwgS HRoPSIzMCUiIHZhbGlnbj 3rkR2zXp4+NUSetXH3aQB 3nP4aWfCsVsE8 FVpqT242DrSrhHUbFhqba 2kjj8xkkSq9PgAjHJFekx XcuIgrIXM1k8GsBc84V2G urJbqn1GhRly4 fu93fKXjt0F1bAV6V7MkW RRneiocaNZlzVubLK6iQP QzicerNEZyeD2xDXUzD5b 4OsYrAqK2ESee T6VtepJ4MCDonVDkBLBey GEXvV9bphrql0wmvdwrOg EwQANfGYi4MIq0HUToaSs eUfNrZHE6NgR8 VGN6eQCibE6kxUcgsdhut G9wOyc+KWj7w1dziOObCB 1vkVK7HT47VD88cYWet0F 9xMC2H3UlFHKn mbyhztpyoFT6JRBqBZBpd L88Dg3xsOlaYc9zHRMzXK K7SKTndMYgU2KobZ9tNuG kMESoTBEqX6Xr tLLcCIxhO418IPmxAqW6U VTjqfHcY7XuFOQypLpfOr U1u1D5Sx6FOR10JB19IS5 6sPGuw9P7hBK7 K3OyEJPdcaithrzhmWD4U JUtKQSlvU75Xp3cyOgsZy 5zEEWeVFI4LODmyAOcJ5R glV2fUxOaLIQo GKWtV0YrkSFcRUvnA469G XkkMgZ2XSWtbyCwW3UrIJ GnbWylHyZ5k3L8Ib4WJj0 4ZB80GN49fFFc w4R9iFW4N1MvMNOdathmd irebNY9VQTmPZXnqG62Fc 2geUjjTe0pOECxVHP6KBM wrLBvL1GqlS5x BfAlNBJlNFGfW7KttGEiZ EfuS509ZWfuCnQ0FYGiez PxA1DwISHmiBdzFuO8r9H 5Mp3YNIgyfnb4 Y6QdGgswiFV+HQ45NOYuK X78sQKzwACqn1asvGf9Rt TpEFIiJKN3eYplOOtmv7W pZKRdR06tgNFy c2U6 (more content not included)... Normal [facility] Consent for Treatmenton Consent for Treatment [id number]# 1.00CD:127 Normal [facility] COVID-19 ([facility] [place]on 08-01-2021 SARS-CoV-2 (COVID-19) RNA RIDGE+probe Ql (Resp) Not detected Normal Not Detected [facility] Comment on above: Result Comment: This test result should be correlated with clinical presentations and medical history by a healthcare provider to determine its clinical significance. This assay was performed by a reverse transcriptase real-time polymerase chain reaction (rt PCR) method on the [employer] system. This test has been authorized [...] or revoked sooner. Performed By: #### 2 [id number] #### [facility] Laboratory [address] [place] [address] SARS-CoV-2 (COVID-19) RNA RIDGE+probe Ql (Unsp spec) Pass Normal Pass [facility] Comment on above: Performed By: #### 2 [id number] #### [facility] [address] [place] [address] Specimen source Nom (Unsp spec) Nasal Normal [facility] Comment on above: Performed By: #### 2 [id number] #### [facility] [address] [id number] COVID-19 ([facility] [place]on 07-30-2021 ADMITTED TO INTENSIVE CARE UNIT FOR CONDITION OF INTEREST:FIND:PT: Unknown Normal [facility] Comment on above: Performed By: #### 2 [id number] #### [facility] [address] [place] [address] EMPLOYED IN A HEALTHCARE SETTING:FIND:PT: Unknown Normal [facility] Comment on above: Performed By: #### 2 [id number] #### [facility] [address] [place] [address] FIRST TEST FOR CONDITION OF INTEREST:FIND:PT: Unknown Normal [facility] Comment on above: Performed By: #### 2 [id number] #### [facility] [address] [place] [address] HAS SYMPTOMS RELATED TO CONDITION OF INTEREST:FIND:PT: Unknown Normal [facility] Comment on above: Performed By: #### 2 [id number] #### [facility] [address] [place] [address] HOSPITALIZED FOR CONDITION OF INTEREST:FIND:PT: Unknown Normal [facility] Comment on above: Performed By: #### 2 [id number] #### [facility] [address] [place] [address] STATUS:FIND:PT: Unknown Normal [facility] Comment on above: Performed By: #### 2 [id number] #### [facility] [address] [place] [address] [facility]:FIND:PT: Unknown Normal [facility] Comment on above: Performed By: #### 2 [id number] #### [facility] [address] [place] [address] CBC Auto DifferentialOrdered By: Tita Palma on 01-13-2021 Absolute Eos # 0.10 [facility] Work Phone: Absolute Immature Granulocyte NOT REPORTED [facility] Work Phone: Absolute Lymph # 0.[address] [facility] Work Phone: Absolute [place] # 0.50 [facility] Work Phone: Basophils (Bld) [#/Vol] 0.00 10*3/uL [facility] Work Phone: Basophils/100 WBC (Bld) 0 % 0 - 2 % [employer] Phone: Differential Type YES [employer] Phone: Eosinophils/100 WBC (Bld) 1 % 0 - 5 % [employer] Phone: Hematocrit (Bld) [Volume fraction] 42.0 % 36 - 46 % [employer] Phone: Hemoglobin.gastrointes tinal spec 1 Ql (Stl) 14.3 g/dL 12.0 - 16.0 g/dL [employer] Phone: Immature Granulocytes NOT REPORTED 0 % M [employer] Phone: Interpretation and review of laboratory results Abnormal [employer] Phone: Lymphocytes/100 WBC (Bld) 11 % Low 15 - 40 % [employer] Phone: MCH (RBC) [Entitic mass] 29.5 pg 26 - 34 pg [employer] Phone: MCHC (RBC) [Mass/Vol] 34.1 g/dL 31 - 37 g/dL M [employer] Phone: MCV (RBC) [Entitic vol] 86.5 fL 80 - 100 fL [employer] Phone: Monocytes/100 WBC (Bld) 7 % 4 - 8 % [employer] Phone: NRBC Automated NOT REPORTED per 100 WBC [employer] Work Phone: Platelet distribution width (Bld) [Ratio] 13.3 % 12.1 - 15.2 % [employer] Phone: Platelet Estimate NOT REPORTED [employer] Phone: Platelet mean volume (Bld) [Entitic vol] NOT REPORTED 6.0 - 12.0 fL [employer] Phone: Platelets (Bld) [#/Vol] 340 10*3/uL [employer] Phone: RBC (Bld) [#/Vol] 4.86 10*6/uL 4.0 - 5.2 m/uL [employer] Work Phone: RBC (Bld) [#/Vol] NOT REPORTED [employer] Work Phone: Segmented neutrophils/100 WBC (Bld) 81 % High 47 - 75 % [employer] Work Phone: Segs Absolute 6.30 [employer] Work Phone: WBC (Bld) [#/Vol] 7.8 10*3/uL [employer] Work Phone: WBC (Bld) [#/Vol] NOT REPORTED [employer] Work Phone: [employer] Work Phone: CTA CHEST W CONTRASTOrdered By: Watchup on 01-13-2021 No evidence for acut e large occlusive pulmonary embolism. No evidence for thoracic aortic aneurysm or dissection flap. No suspicious lung infiltrates or consolidation. Hepatic steatosis. Mild gastroesophageal wall thickening, correlate clinically. [employer] Work Phone: EXAMINATION: CTA CHEST W CONTRAST [...] distal esophagitis/wall lesion. No acute bony abnormality. [employer] Phone: Moreno, Mhpn Incoming Radiant Results From [facility] - 01/13/2021 10:06 PM EDT EXAMINATION: CTA [...] steatosis. Mild gastroesophageal wall thickening, correlate clinically. [employer] Phone: [employer] Phone: Comprehensive Metabolic Pane lOrdered By: Tita Palma on 01-13-2021 Albumin [Mass/Vol] 4.3 g/dL 3.5 - 5.2 g/dL [employer] Phone: Albumin/Globulin Ratio NOT REPORTED [employer] Phone: ALP (Bld) [Catalytic activity/Vol] 165 U/L High 35 - 104 U/L [employer] Phone: ALT [Catalytic activity/Vol] 24 U/L 5 - 33 U/L [employer] Phone: Anion gap [Moles/Vol] 10 mmol/L 9 - 17 mmol/L [employer] Phone: AST [Catalytic activity/Vol] 14 U/L <32 [employer] Phone: Bilirubin [Mass/Vol] 0.24 mg/dL Low 0.30 - 1.20 mg/dL [employer] Phone: Calcium [Mass/Vol] 9.9 mg/dL 8.6 - 10. 4 mg/dL [employer] Phone: Chloride [Moles/Vol] 101 mmol/L 98 - 10 7 mmol/L [employer] Phone: CO2 [Moles/Vol] 24 mmol/L 20 - 31 mmol/L [employer] Phone: Creatinine [Mass/Vol] 1.04 mg/dL High 0.50 - 0.90 mg/dL [employer] Phone: Free PSA/Total PSA [Mass fraction] 7.9 g/dL 6.4 - 8.3 g/dL [employer] Phone: GFR >60 >60 mL/min [employer] Phone: GFR Non- 55 mL/min Low >60 [employer] Phone: GFR/1.73 sq M.predicted MDRD (S/P/Bld) [Vol rate/Area] [employer] Phone: Comment on above: Average GFR for 50-5 9 years old: 93 mL/min/1.73sq m Chronic Kidney Disease: <60 mL/min/1.73sq m Kidney failure: <15 mL/min/1.73sq m eGFR calculated using average adult body mass. Additional eGFR calculator available at: http://www.Bluwan.Retevo/multiple_crcl_2012.htm GFR/1.73 sq M.predicted MDRD (S/P/Bld) [Vol rate/Area] NOT REPORTED [employer] Phone: Glucose [Mass/Vol] 126 mg/dL High 70 - 99 mg/dL [employer] Phone: Interpretation and review of laboratory results Abnormal [employer] Phone: Potassium [Moles/Vol] 4.2 mmol/L 3.7 - 5.3 mmol/L [employer] Phone: Sodium [Moles/Vol] 135 mmol/L 135 - 144 mmol/L [employer] Phone: Urea nitrogen (BldV) [Mass/Vol] 17 mg/dL 6 - 20 mg/dL [employer] Phone: Urea nitrogen/Creatinine (Bld) [Mass ratio] 16 [employer] Phone: [employer] Phone: D-Dimer, QuantitativeOrdered By: Tita Palma on 01-13-2021 D-Dimer, Quant 0.88 High [employer] Work Phone: Comment on above: When combined [...] Interpretation and review of laboratory results Abnormal [employer] Phone: [employer] Phone: SPECIMEN REJECTIONOrdered By : Watchup on 01-13-2021 - NOT REPORTED [employer] Phone: Ordered Test CP TROP [employer] Phone: Reason for Rejection Unable to perform testing: Specimen hemolyzed. [employer] Phone: Specimen source Nom (Unsp spec) BLOOD IV START [employer] Phone: [employer] Phone: TroponinOrdered By: Watchup on 01-13-2021 Troponin Interp NOT REPORTED [employer] Phone: Troponin T NOT REPORTED <0.03 ng/mL [employer] Work Phone: Troponin, High Sensitivity <6 0 - 14 ng/L [employer] Phone: Comment on above: High Sensitivity Troponin values cannot be compared with other Troponin methodologies. Patients with high levels of Biotin oral intake (i.e >5mg/day) may have falsely decreased Troponin levels. Samples collected within 8 hours of biotin intake may require additional information for diagnosis. [employer] Phone: Troponin Interp NOT REPORTED [employer]ian [employer] Work Phone: Troponin T NOT REPORTED <0.03 ng/mL [employer] Work Phone: Troponin, High Sensitivity <6 0 - 14 ng/L [employer] Phone: Comment on above: High Sensitivity Troponin values cannot be compared with other Troponin methodologies. Patients with high levels of Biotin oral intake (i.e >5mg/day) may have falsely decreased Troponin levels. Samples collected within 8 hours of biotin intake may require additional information for diagnosis. [employer] Phone: XR CHEST PORTABLEOrdered By: Vesgil Louie on 01-13-2021 No focal consolidation, pneumothorax or pleural effusion. [employer] Work Phone: EXAM: XR CHEST PORTABLE HISTORY: Shortness of breath, chest pain. COMPARISON: None. TECHNIQUE: AP radiograph of the chest was performed. FINDINGS: No focal consolidation, pneumothorax or pleural effusion. There is mild elevation of the right hemidiaphragm. The cardiomediastinal silhouette is unremarkable. There are degenerative changes of the spine. [employer] Work Phone: Moreno, Mhpn Incoming Radiant Results From [facility] - 01/13/2021 8:24 PM EDT EXAM: XR CHEST PORTABLE HISTORY: Shortness of breath, chest pain. COMPARISON: None. TECHNIQUE: AP radiograph of the chest was performed. FINDINGS: No focal consolidation, pneumothorax or pleural effusion. There is mild elevation of the right hemidiaphragm. The cardiomediastinal silhouette is unremarkable. There are degenerative changes of the spine. IMPRESSION: No focal consolidation, pneumothorax or pleural effusion. [employer] Work Phone: [employer] Work Phone: Vital Signs Date Time Vital Sign Value Performing Clinician Facility 11-08-2024 10:15-0400 Diastolic blood pressure 77 mm[Hg] Jhonatan Crane MD [facility] 11-08-2024 10:15-0400 Heart rate 77 /min Jhonatan Crane MD Work [facility] 11-08-2024 10:15-0400 Respiratory rate 15 /min Jhonatan Crane MD [facility] 11-08-2024 10:15-0400 SaO2% (BldA) [Mass fraction] 93 % Jhonatan Crane MD [facility] 11-08-2024 10:15-0400 Systolic blood pressure 141 mm[Hg] Jhonatan Crane MD Work Phone: [facility] 11-08-2024 09:36-0400 Body temperature 96.8 [degF] Jhonatan Crane MD Work Phone: [facility] 11-08-2024 07:45-0400 Body height 157.5 cm Jhonatan Crane MD Work Phone: [facility] 11-08-2024 07:45-0400 Body mass index (BMI) [Ratio] 33.03 kg/m2 Jhonatan Crane MD Work Phone: [facility] 11-08-2024 07:45-0400 Body weight 81.92 kg Jhonatan Crane MD Work Phone: [facility] 05-22-2024 15:19-0400 Body mass index (BMI) [Ratio] 33.66 kg/m2 Chris Madsen ADMITTING COORDINATOR-MANAGER OF ENTERPRISE Work Phone: [facility] 05-22-2024 15:19-0400 Body weight 86.18 kg Chris Madsen ADMITTING COORDINATOR-MANAGER OF ENTERPRISE Work Phone: [facility] 05-01-2024 11:34-0400 Body height 160 cm Dayana Domínguezing COCOA POWDER MIXER OPERATOR Work Phone: [facility] 05-01-2024 11:34-0400 Body mass index (BMI) [Ratio] 34.19 kg/m2 Dayana Apling [employer]OCOA POWDER MIXER OPERATOR Work Phone: [facility] 05-01-2024 11:34-0400 Body weight 87.54 kg Dayana Apling [employer]OCOA POWDER MIXER OPERATOR Work Phone: [facility] 04-19-2024 13:13-0400 Body height 157.48 cm [facility] 04-19-2024 13:13-0400 Body mass index (BMI) [Ratio] 35.2 kg/m2 [facility] 04-19-2024 13:13-0400 Body temperature 98.1 [degF] [facility] 04-19-2024 13:13-0400 Body weight 87.31 kg [facility] 04-19-2024 13:13-0400 Diastolic blood pressure 82 mm[Hg] [facility] 04-19-2024 13:13-0400 Heart rate 87 /min [facility] 04-19-2024 13:13-0400 SaO2% (BldA) [Mass fraction] 97 % [facility] 04-19-2024 13:13-0400 Systolic blood pressure 126 mm[Hg] [facility] 06-16-2023 10:00-0500 Body height 157.48 cm Samra Shamika Other [employer] Other 06-16-2023 10:00-0500 Body mass index (BMI) [Ratio] 35.52 kg/m2 Samra Shamika Other [employer] Other 06-16-2023 10:00-0500 Body temperature 98 [degF] Samra Shamika Other [employer] Other 06-16-2023 10:00-0500 Body weight 88.09 kg Samra Yehmond Other [employer] Other 06-16-2023 10:00-0500 Diastolic blood pressure 80 mm[Hg] Samra Shamika Other [employer] Other 06-16-2023 10:00-0500 Respiratory rate 18 /min Samra Shamika Other [employer] Other 06-16-2023 10:00-0500 SaO2% (BldA) [Mass fraction] 95 % Samra Shamika Other [employer] Other 06-16-2023 10:00-0500 Systolic blood pressure 132 mm[Hg] Samra Shamika Other [employer] Other 09-20-2022 11:45-0500 Body height 157.48 cm Siobhan Meyers Other [employer] Other 09-20-2022 11:45-0500 Body mass index (BMI) [Ratio] 34.93 kg/m2 Siobhan Meyers Other [employer] Other 09-20-2022 11:45-0500 Body temperature 98.3 [degF] Siobhan Meyers Other [employer] Other 09-20-2022 11:45-0500 Body weight 86.64 kg Siobhan Meyers Other [employer] Other 09-20-2022 11:45-0500 Respiratory rate 18 /min Siobhan Meyers Other [employer] Other 09-20-2022 11:45-0500 SaO2% (BldA) [Mass fraction] 98 % Siobhan Meyers Other [employer] Other 06-30-2022 18:35-0500 Body height 157.48 cm Cassandra Tim Other [employer] Other 06-30-2022 18:35-0500 Body mass index (BMI) [Ratio] 34.56 kg/m2 Cassandra Dumont Other [employer] Other 06-30-2022 18:35-0500 Body temperature 97.7 [degF] Cassandra Dumont Other [employer] Other 06-30-2022 18:35-0500 Body weight 85.73 kg Cassandra Dumont Other [employer] Other 06-30-2022 18:35-0500 Diastolic blood pressure 72 mm[Hg] Cassandra Dumont Other [employer] Other 06-30-2022 18:35-0500 Respiratory rate 18 /min Cassandra Tim Other [employer] Other 06-30-2022 18:35-0500 SaO2% (BldA) [Mass fraction] 98 % Cassandra Tim Other [employer] Other 06-30-2022 18:35-0500 Systolic blood pressure 126 mm[Hg] Cassandra Tim Other [employer] Other 12-18-2021 16:55-0400 Body height 157.48 cm Siobhan Meyers Other [employer] Other 12-18-2021 16:55-0400 Body mass index (BMI) [Ratio] 32.92 kg/m2 Siobhan Gonzalezault Other [employer] Other 12-18-2021 16:55-0400 Body temperature 98.9 [degF] Siobhan Luigi Other [employer] Other 12-18-2021 16:55-0400 Body weight 81.65 kg Siobhan Gonzalezault Other [employer] Other 12-18-2021 16:55-0400 Respiratory rate 16 /min Siobhan Luigi Other [employer] Other 12-18-2021 16:55-0400 SaO2% (BldA) [Mass fraction] 95 % Siobhan Meyers Other [employer] Other 01-13-2021 22:34-0400 Diastolic blood pressure 80 mm[Hg] Tita Palma MD Work Phone: [employer] Work Phone: 01-13-2021 22:34-0400 Heart rate 78 /min Tita Palma MD Work Phone: [employer] Work Phone: 01-13-2021 22:34-0400 Respiratory rate 17 /min Tita Palma MD Work Phone: [employer] Work Phone: 01-13-2021 22:34-0400 Systolic blood pressure 134 mm[Hg] Tita Palma MD Work Phone: [employer] Work Phone: 01-13-2021 19:33-0400 Body temperature 98.01 [degF] Tita Palma MD Work Phone: [employer] Work Phone: 01-13-2021 19:33-0400 Body weight 79.38 kg Tita Palma MD Work Phone: [employer] Work Phone: 01-13-2021 19:33-0400 SaO2% (BldA) [Mass fraction] 99 % Tita Palma MD Work Phone: [employer] Work Phone: Encounters Encounter Date Encounter Type Care Provider Facility Start: 04-10-2025 End: 04-10-2025 Edelmira SORIA Work Phone: [facility] Start: 04-10-2025 End: 04-10-2025 Edelmira SORIA Work Phone: [facility] Start: 04-10-2025 End: 04-10-2025 Office outpatient visit 25 minutes Jose SORIA Work Phone: [facility] Comment on above: Acute pain of right shoulder (Primary Dx); Arthritis of right acromioclavicular joint Start: 04-10-2025 End: 04-10-2025 ambulatory JOSE VALERA Not Available Start: 04-06-2025 End: 04-06-2025 ambulatory [facility] Start: 03-13-2025 End: 03-13-2025 Bamboo flowsheet Jose SORIA Work Phone: [facility] Start: 03-13-2025 End: 03-13-2025 Bamboo flowsheet Jose SORIA Work Phone: [facility] Start: 03-13-2025 End: 03-13-2025 Office outpatient visit 25 minutes Jose SORIA Work Phone: [facility] Comment on above: Acute pain of right shoulder (Primary Dx); Arthritis of right acromioclavicular joint; Impingement of right shoulder Start: 03-13-2025 End: 03-13-2025 ambulatory JOSE VALERA Not Available Start: 11-08-2024 End: 11-08-2024 ambulatory JHONATAN CRANE [facility] Start: 11-08-2024 End: 11-08-2024 Subsequent hospital visit by physician Jhonatan Crane MD Work Phone: [facility] Comment on above: Chronic GERD Start: 10-25-2024 End: 10-25-2024 ambulatory [facility] KENT [facility] Start: 10-25-2024 End: 10-25-2024 Patient encounter status Austin SORIA Work Phone: [facility] Start: 10-25-2024 End: 10-25-2024 Subsequent hospital visit by physician Austin SORIA Work Phone: [facility] Comment on above: Pre-op testing Start: 10-17-2024 End: 10-17-2024 ambulatory AUSTIN KENT [facility] Start: 10-17-2024 Encounter for other preprocedural examination [facility] Start: 10-17-2024 End: 10-17-2024 Patient encounter status Austin SORIA Work Phone: [facility] Start: 10-17-2024 End: 10-17-2024 Subsequent hospital visit by physician Austin SORIA Work Phone: [facility] Comment on above: Pre-op testing Start: 10-11-2024 End: 10-11-2024 ambulatory [facility] Start: 09-25-2024 End: 09-25-2024 Telephone encounter Chris A Felter ADMITTING COORDINATOR-MANAGER OF ENTERPRISE Work Phone: [facility] Start: 08-10-2024 End: 08-10-2024 Office outpatient visit 15 minutes Chris A Felter ADMITTING COORDINATOR-MANAGER OF ENTERPRISE Work Phone: [facility] Comment on above: Psoriasis vulgaris ( CMS/HCC) (Primary Dx); High risk medication use Start: 08-10-2024 End: 08-10-2024 Bamboo flowsheet Chris A Felter ADMITTING COORDINATOR-MANAGER OF ENTERPRISE Work Phone: [facility] Start: 08-10-2024 End: 08-10-2024 Bamboo flowsheet Chris A Felter ADMITTING COORDINATOR-MANAGER OF ENTERPRISE Work Phone: [facility] Start: 08-10-2024 End: 08-10-2024 ambulatory CHRIS A FELTER Not Available Start: 05-22-2024 End: 05-22-2024 Office outpatient visit 25 minutes Chris A Felter ADMITTING COORDINATOR-MANAGER OF ENTERPRISE Work Phone: [facility] Comment on above: Psoriasis vulgaris ( CMS/HCC); Psoriatic arthritis (CMS/HCC); High risk medication use Start: 05-22-2024 End: 05-22-2024 ambulatory CHRIS A FELTER Not Available Start: 05-22-2024 End: 05-22-2024 Bamboo flowsheet Chris Steele Felter ADMITTING COORDINATOR-MANAGER OF ENTERPRISE Work Phone: [facility] Start: 05-22-2024 End: 05-22-2024 Bamboo flowsheet Chris Steele Felter ADMITTING COORDINATOR-MANAGER OF ENTERPRISE Work Phone: [facility] Start: 05-01-2024 End: 05-01-2024 Bamboo flowsheet Dayana Macias Apling COCOA POWDER MIXER OPERATOR Work Phone: [facility] Start: 05-01-2024 End: 05-01-2024 Bamboo flowsheet Dayana Colleen Apling COCOA POWDER MIXER OPERATOR Work Phone: [facility] Start: 05-01-2024 End: 05-01-2024 Office outpatient new 30 minutes Dayana Macias Apling COCOA POWDER MIXER OPERATOR Work Phone: [facility] Comment on above: Left shoulder pain, unspecified chronicity (Primary Dx); Arthritis of left acromioclavicular joint; Left shoulder tendonitis; Adhesive capsulitis of left shoulder Start: 05-01-2024 End: 05-01-2024 ambulatory DAYANA Macias APLING Not Available Start: 04-19-2024 End: 04-19-2024 ambulatory [facility] Work Phone: Start: 04-19-2024 End: 04-19-2024 Patient encounter procedure [facility] Work Phone: Start: 04-04-2024 End: 04-04-2024 ambulatory [facility] Start: 03-31-2024 End: 03-31-2024 ambulatory JHONATAN [facility] Start: 03-23-2024 ambulatory [facility] Start: 03-21-2024 End: 03-26-2024 ambulatory [facility] Start: 03-03-2024 Non-patient / Non-visit [facility] Work Phone: Start: 12-21-2023 End: 12-23-2023 ambulatory UNKNOWN PROVIDER Facility:[facility] Start: 12-21-2023 End: 12-23-2023 Patient encounter procedure Colleen Bro DDS Work Phone: [facility] Start: 12-14-2023 End: 12-16-2023 Patient encounter procedure Maribel Connors DDS Work Phone: [facility] Start: 12-14-2023 End: 12-16-2023 ambulatory UNKNOWN PROVIDER Facility:[facility] Start: 10-22-2023 End: 10-22-2023 ambulatory UNKNOWN PROVIDER Facility:[facility] Start: 10-22-2023 End: 10-22-2023 Patient encounter procedure Amina Jackson [facility] Other Phone: [facility] Start: 09-15-2023 End: 09-16-2023 Patient encounter procedure Delbert Bejarano DDS Other Phone: [facility] Start: 09-15-2023 End: 09-16-2023 ambulatory UNKNOWN PROVIDER Facility:[facility] Start: 06-16-2023 End: 06-16-2023 ambulatory Samra Wick Other [employer] Other Start: 06-16-2023 Office outpatient vi sit 15 minutes Samra Wick [facility] [place] Start: 05-23-[address] [facility] Start: 10-12-2022 End: 10-13-[address] TREY CAN Facility: Start: 09-20-2022 End: 09-20-2022 ambulatory Siobhan Meyers Other [employer] Other Start: 09-20-2022 Office outpatient vi sit 15 minutes Siobhan Meyers [facility] [place] Start: 06-30-2022 End: 06-30-2022 ambulatory Cassandra Dumont Other [employer] Other Start: 06-30-2022 Office outpatient vi sit 25 minutes Cassandra Dumont [facility] [place] Start: 12-18-2021 End: 12-18-2021 ambulatory Siobhan Meyers Other [employer] Other Start: 12-18-2021 Office outpatient vi sit 25 minutes Siobhan Meyers [facility] [place] Start: 07-30-2021 End: 10-29-2021 Patient encounter procedure MORALES BILLARI [facility] Start: 01-13-2021 End: 01-13-2021 Emergency department patient visit Tita Palma MD Work Phone: [facility] ED Comment on above: Chest pain, unspecif ied type (Primary Dx); Anxiety state Procedures Date Procedure Procedure Detail Performing Clinician Start: 03-13-2025 Arthrocentesis aspir &/inj major jt/bursa w/o us Jose SORIA Work Phone: Start: 03-13-2025 Radex shoulder compl ete minimum 2 views Jose SORIA Work Phone: Start: 10-25-2024 Basic metabolic pane l calcium total Candy Schmidt ADMITTING COORDINATOR - MANAGER OF ENTERPRISE Work Phone: Start: 10-17-2024 Ecg routine ecg w/le ast 12 lds w/i&r Candy Schmidt ADMITTING COORDINATOR - MANAGER OF ENTERPRISE Work Phone: Start: 05-01-2024 Arthrocentesis aspir &/inj major jt/bursa w/o us Dayana Woodard COCOA POWDER MIXER OPERATOR Work Phone: Start: 03-31-2024 Colonoscopy Austin Darrell delgado PA Work Phone: Start: 01-13-2021 Ct angiography chest [...] Treatment Date Care Activity Detail Author Start: 2038 Respiratory Syncytial Virus (RSV) or age 60 yrs+ (1 - 1-dose 75+ series) Respiratory Syncytial Virus (RSV) or age 60 yrs+ (1 - 1-dose 75+ series) [facility] Start: 03-31-2034 Screening for malignant neoplasm of colon [facility] Start: 07-16-2030 DTaP/Tdap/Td vaccine (2 - Td or Tdap) DTaP/Tdap/Td vaccine (2 - Td or Tdap) [facility] Start: 07-16-2030 Tetanus vaccination Tetanus (Td or Tdap) Booster [facility] Start: 11-28-2028 Cholesterol [Mass/volume] in Serum or Plasma Cholesterol [facility] Start: 06-26-2028 Cholesterol [Mass/volume] in Serum or Plasma Cholesterol [facility] Start: 11-10-2026 Screening for malignant neoplasm of colon Cologuard (Stool DNA) [facility] Start: 11-03-2026 Screening for malignant neoplasm of colon Fecal-DNA (Cologuard): Average risk [facility] Start: 10-25-2025 GFR test (Diabetes, CKD 3-4, OR last GFR 15-59) GFR test (Diabetes, CKD 3-4, OR last GFR 15-59) [facility] Start: 05-08-2025 End: 05-08-2025 Patient encounter procedure [facility] Start: 04-10-2025 End: 04-10-2025 Patient encounter procedure 04/10/2025 10:45 AM EDT Office Visit [facility] [address] [place] [phone] Jose Valera PA [address] [place] [phone] Acute pain of right shoulder (Primary Dx) [facility] Comment on above: Acute pain of right shoulder (Primary Dx ) Start: 03-13-2025 End: 03-13-2025 Patient encounter procedure 03/13/2025 10:15 AM EDT Office Visit [facility] [address] [place] [address] Jose Valera PA [address] [place] [address] Acute pain of right shoulder (Primary Dx) [facility] Comment on above: Acute pain of right shoulder (Primary Dx ) Start: 02-23-2025 Influenza vaccination Flu vaccine (Season Ended) [facility] Start: 11-08-2024 End: 11-08-2024 Admission to same day surgery center [facility] Comment on above: EGD Start: 11-08-2024 End: 11-08-[address] [facility] Start: 11-08-2024 Subsequent hospital visit by physician [facility] Start: 09-25-2024 End: 09-25-2024 Patient encounter procedure 09/25/2024 2:35 PM EST Office Visit [facility] [address] [place] [phone] Chris Madsen APRN-MANAGER OF ENTERPRISE [address] [place] [address] [facility] Start: 08-10-2024 End: 08-10-2024 Patient encounter procedure 08/10/2024 2:05 PM EST Office Visit [facility] [address] [place] [address] Chris Madsen Ivette, ADMITTING COORDINATOR-MANAGER OF ENTERPRISE [address] [place] [address] Arrived [facility] Comment on above: Arrived Start: 06-26-2024 End: 05-22-2025 QUANTIFERON TB GOLD QUANTIFERON TB GOLD Lab Routine Psoriasis vulgaris (CMS/HCC) Psoriatic arthritis (CMS/HCC) High risk medication use Expected: 06/26/2024 (Approximate), Expires: 05/22/2025 [facility] Work Phone: Comment on above: Expected: 06/26/2024 (Approximate), Expi res: 05/22/2025 Start: 06-06-2024 End: 06-06-2024 Patient encounter procedure [facility] Start: 05-22-2024 End: 05-22-2024 Patient encounter procedure [facility] Comment on above: Arrived Start: 05-15-2024 End: 05-15-2024 Patient encounter procedure 05/15/2024 11:00 AM EDT Office Visit [facility] [address] [place] [address] Dayana Woodard, COCOA POWDER MIXER OPERATOR [address] [place] [address] [facility] Start: 05-01-2024 End: 05-01-2024 Patient encounter procedure 05/01/2024 11:30 AM EDT Office Visit [facility] [address] [place] [address] Dayana Woodard, COCOA POWDER MIXER OPERATOR [address] [place] [address] Left shoulder pain, unspecified chronicity (Primary Dx); Arthritis of left acromioclavicular joint; Left shoulder tendonitis; Adhesive capsulitis of left shoulder [facility] Comment on above: Left shoulder pain, unspecified chronici ty (Primary Dx); Arthritis of left acromioclavicular joint; Left shoulder tendonitis; Adhesive capsulitis of left shoulder Start: 03-26-2024 COVID-19 Vaccine ( season) COVID-19 Vaccine ( season) [facility] Start: 02-25-2024 End: 02-25-2024 Patient encounter procedure 02/25/2024 11:00 AM EDT Procedure Visit [facility] [address] [id number] Pasquale Rosa, [address] [place] [address] [facility] Start: 02-24-2024 Influenza vaccination Flu vaccine (#1) [facility] Start: 02-18-2024 End: 02-18-2024 Patient encounter procedure 02/18/2024 10:00 AM EDT Procedure Visit [facility] [address] [place] [address] Emory Devlin, [address] [place] [address] [facility] Start: 12-21-2023 End: 12-21-2023 Patient encounter procedure [facility] Start: 12-14-2023 End: 12-14-2023 Patient encounter procedure 12/14/2023 11:00 AM EDT Procedure Visit [facility] [address] [place] [address] Js Putnam, DDS [address] [place] [address] [facility] Start: 11-12-2023 Screening for malignant neoplasm of colon CRC Screening [facility] Start: 10-22-2023 End: 10-22-2023 Patient encounter procedure 10/22/2023 9:50 AM EDT Procedure Visit [facility] [address] [place] [address] Pasquale Rosa DDS [address] [place] [address] [facility] Start: 09-15-2023 End: 09-15-2023 Patient encounter procedure 09/15/2023 10:50 AM EST Procedure Visit [facility] [address] [place] [address] Pasquale Rosa DDS [address] [place] [address] [facility] Start: 2023 Hepatitis B (HBV) Vaccine (optional start 60+ years) Hepatitis B (HBV) Vaccine (optional start 60+ years) [facility] Start: 2023 RSV vaccine (optional 60+ years) RSV vaccine (optional 60+ years) [facility] Start: 03-26-2023 COVID-19 Vaccine ( season) COVID-19 Vaccine ( season) [facility] Start: 03-26-2023 Influenza vaccination Influenza Vaccine (#1) [facility] Start: 01-13-2022 GFR test (Diabetes, CKD 3-4, OR last GFR 15-59) GFR test (Diabetes, CKD 3-4, OR last GFR 15-59) [employer] Start: 03-26-2021 Influenza vaccination Flu vaccine (Season Ended) [employer] Phone: Start: 2013 Screening for malignant neoplasm of breast Breast cancer screen [employer] Phone: Start: 2013 Screening for malignant neoplasm of colon Colon cancer screen colonoscopy [employer] Phone: Start: 2013 Shingles (RZV) Vaccine (1 of 2) Shingles (RZV) Vaccine (1 of 2) [facility] Start: 2013 Shingles Vaccine (1 of 2) Shingles Vaccine (1 of 2) [facility] [employer] Start: 2008 Cholesterol [Mass/volume] in Serum or Plasma Cholesterol [facility] Start: 2008 Screening for malignant neoplasm of colon [facility] Start: 2003 Lipid panel [facility] [employer] Phone: Start: 2003 Screening for malignant neoplasm of breast [facility] Start: 1993 [facility]ix [facility] Start: 1984 Screening for malignant neoplasm of cervix [facility] Start: 1982 Hepatitis A (HAV) Vaccine (optional start 19+ years) Hepatitis A (HAV) Vaccine (optional start 19+ years) [facility] Start: 1982 Pneumococcal 50+ years Vaccine (1 of 2 - PCV) Pneumococcal 50+ years Vaccine (1 of 2 - PCV) [facility] Start: 1982 Tetanus vaccination Tetanus (Td or Tdap) Booster [facility] Start: 1981 Glaucoma screening Diabetic retinal exam [facility] Start: 1981 [facility] Start: 1981 Tetanus + diphtheria + acellular pertussis vaccine (product) Tdap Booster [facility] Start: 1981 Urine screening for protein Diabetic Alb to Cr ratio (uACR) test [facility] Start: 1978 [facility] Start: 1975 COVID-19 Vaccine (1) COVID-19 Vaccine (1) [facility] Phone: Start: 1975 Depression Screen Depression Screen [facility] Start: 1973 Diabetic foot examination [facility] foot [facility] Start: 1973 Hemoglobin A1c measurement A1C test (Diabetic or Prediabetic) [facility] [employer] Start: 1973 Lipid panel Lipids [facility] Start: 1963 COVID-19 Vaccine (#1) COVID-19 Vaccine (#1) [facility] Start: 1963 Hepatitis C screening Hepatitis C screen [facility] Phone: Start: 1963 Screening for malignant neoplasm of colon [facility] EKG 12 Lead EKG 12 Lead ECG Routine 01/13/2021 7:37 PM EDT [facility] Work Phone: Pathology study Surgical Patholo gy Lab Routine Chronic GERD Release Upon Ordering for 1 Occurrences starting 11/08/2024 [facility] Comment on above: Release Upon Ordering for 1 Occurrences starting 11/08/2024 Immunizations Immunization Date Immunization Notes Care Provider Fa darrylty 05-26-2021 influenza, injectabl e, quadrivalent, preservative free Delbert Alfredo Munozara DDS Other Phone: [facility] 05-26-2021 influenza virus vaccine, unspecified formulation Delbert Fuentes Andara DDS Other Phone: [employer] Work Phone: 07-16-2020 tetanus toxoid, reduced diphtheria toxoid, and acellular pertussis vaccine, adsorbed Delbert Fuentes Andara DDS Other Phone: [facility] Payers Date Payer Category Payer Unknown SP/UNINSURED [facility] FINANCIAL PRO[employer] EVALUATION 2023-Present Other [id number] 2020 Medicaid [id number] 2020 Medicaid (Managed Care) 1.2. [id number] 1963 Unknown [id number] 2.16.840.1.940354.3.579.2. 593 1963 Unknown [id number] 2.16.840.1.308895.3.579.2. 732 1963 Unknown [id number] 2.16.840.1.949508.3.579.2. 732 1963 Unknown [id number] 2.16.840.1.373045.3.579.2. 732 1963 Unknown [id number] 2.16.840.1.716809.3.579.2. 732 1963 Unknown [id number] 2.16.840.1.327725.3.579.2. 1286 1963 Unknown [id number] 2.16.840.1.569473.3.579.2. 1286 1963 Unknown [id number] 2.16.840.1.905703.3.579.2. 1286 1963 Unknown [id number] 2.16.840.1.645648.3.579.2. 173 1963 Unknown [id number] 2.16.840.1.015145.3.579.2. 173 1963 Unknown [id number] 2.16.840.1.017219.3.579.2. 173 1963 Unknown [id number] 2.16.840.1.586392.3.579.2. 174 1963 Unknown [id number] 2.16.840.1.865828.3.579.2. 1259 1963 Unknown [id number] 2.16.840.1.626285.3.579.2. 1259 1963 Unknown [id number] 2.16.840.1.197738.3.579.2. 1259 1963 Unknown [id number] 2.16.840.1.542235.3.579.2. 1259 1963 Unknown [id number] 2.16.840.1.460176.3.579.2. 1259 1963 Unknown [id number] 2.16.840.1.539241.3.579.2. 1259 1959 Medicaid [id number]. [id number] Social History Date Type Detail Facility Start: 01-13-2021 End: 05-01-2024 Tobacco smoking status [facility] Never smoker [facility] Start: 01-13-2021 End: 05-01-2024 Tobacco use and exposure Never used [employer] Start: 01-13-2021 Alcohol intake Lifetime non-d melchor (finding) [employer] Work Phone: Start: 01-13-2021 History SDOH Alcohol Frequency 1 [employer] Work Phone: Start: 01-13-2021 Alcohol Comment occasional [employer] Work Phone: Start: 1965 Sex Assigned At Not on file M [employer] Work Phone: Exposure to SARS-CoV -2 (event) Not sure [employer] Start: 11-18-2023 End: 03-13-2025 Sex Assigned At Female [employer] [facility] Tobacco smoking stat [facility] Tobacco smoking consumption unknown [facility] Start: 1965 Sex Assigned At Female F [facility] Start: 11-18-2023 End: 03-13-2025 History of Social function [employer] Start: 04-29-2024 Gender identity Identifies as female gender (finding) [facility] Start: 05-01-2024 End: 04-10-2025 Alcoholic beverage intake Ex-drinker (finding) [facility] Start: 03-31-2024 Tobacco smoking stat [facility] Occasional tobacco smoker [employer] History of tobacco use Cigarette Smoker B on [employer] Start: 10-17-2024 End: 11-08-2024 Alcoholic beverage intake Current drinker of alcohol (finding) [facility] [employer] Physical abuse Denies [employer] Start: 03-31-2024 Tobacco Comment Very sporadic. Once every few months. [employer] Start: 03-31-2024 Alcohol Comment 1 beer every few [employer] Start: 01-13-2021 Sex Female (finding) [employer] Start: 10-30-2024 Tobacco smoking stat [facility] Ex-smoker [employer] History of tobacco use Current smoker [employer] Medical Equipment Procedure Code Equipment Code Equipment Origin al Text Equipment Identifier Dates USE TO CHECK BLO OD SUGAR ONCE A DAY Start: 04-14-2023 Clinical Notes 12-18-2021 to 04-10-2025 ESTELLA Darden - 04/10/2025 10:45 AM ESTELLA Oliver - 03/13/2025 10:15 AM Solange Mcmanus RN - 11/08/2024 10:35 AM Leigha Villarreal RN - 10/30/2024 2:15 PM EDTDischarge Instructions Note Date & Type Note Facility 04-10-2025 History of Present illness Narrative Images from the original note were not included. Orthopedic Office note: NAME: Dayana Steele : 1965 (EST PT) RT SHOULDER; S/P DEPO INJECTION 03/13 (4 WKS); MINIMAL RELIEF XRAY RT SHOULDER EPIC 03/13/25 NO MRI DEPO INJECTION 03/13/25 NO PT C/O PAIN UPPER ARM- LIMITED ROM- DIFFICULTY RAISING ABOVE SHOULDER LEVEL- DIFFICULTY CHANGING CLOTHES- DENIES N/T- OCCASIONALLY WAKES HS- +WEAKNESS- NO PAIN MEDS- TAKES HUMIRA INJ FOR PSORIASIS XIOMY: PAIN (01/2025). DENIES INJURY RT HAND DOMINANT Shoulder Musculoskeletal Exam Inspection Right Right shoulder inspection is normal. Ecchymosis: none Peripheral edema: none Atrophy: none Masses: none Palpation Right Right shoulder palpation is normal. Crepitus: no crepitus Increased warmth: none Tenderness: present Anterior shoulder: mild Posterior shoulder: mild Clavicle: none AC joint: mild Rotator cuff: none Greater tuberosity: none Trapezius: none Medial scapula: none Superior pole of scapula: none Inferior pole of scapula: none Bicipital groove: none Proximal biceps: none Distal biceps: none Lateral arm: mild Lateral arm comment: posterior Elbow: none Range of Motion Right Right shoulder range of motion is normal. Active ROM: normal and no pain. Passive ROM: normal and no pain. Active forward elevation: 170. Passive forward elevation: 180. Shoulder active abduction: 170. Passive abduction: 180. Active external rotation at side: 90. Passive external rotation at side: 90. Internal rotation: sacrum. Strength Right External rotation: 5/5. Internal rotation: 5/5. Abduction: 5/5. Biceps: 5/5. Triceps: 5/5. Neurovascular Right Radial pulse: normal and 2+ Capillary refill: <3 sec Axillary nerve sensory distribution: normal Scapula Right Right shoulder scapula is normal. Position: normal Winging: none Special Tests Right Rotator Cuff Signs Neer's test: negative Badillo test: positive Biceps/tristan Signs Clicking/popping: negative Speed's test: negative AC Joint Signs Active horizontal adduction pain: negative Single finger test: positive (mild) General Constitutional: appears stated age Labored breathing: no Neurological: alert and oriented x3 No orders of the defined types were placed in this encounter. Procedures Results ICD-10-CM 1. Acute pain of right shoulder M25.511 meloxicam (Mobic) 15 MG tablet 2. Arthritis of right acromioclavicular joint M19.011 Assessment & Plan Right shoulder pain: Symptoms are intermittent and worsen with activity, possibly related to AC joint arthritis. The examination today is fairly benign, with mild symptoms of impingement. She notes that the pain is very tolerable. Surgical and nonsurgical treatment options were discussed. Given her intact range of motion and strength, she feels she can live with the current symptoms and does not require further treatment at this time. Treatment plan: Meloxicam pill was recommended for more consistent 24-hour coverage instead of taking Motrin infrequently. Tylenol can be used as needed in addition. Focus will be on ice and elevation, and ibuprofen use will be stopped. Formal physical therapy is declined at this time, but home supine shoulder exercises will be tried as discussed. Follow-up: Follow-up will be on an as-needed basis. She will call if she changes her mind about the physical therapy recommendation and potential for reevaluation if imaging is indicated. Questions answered in laymen terms at the bedside. The diagnosis, home exercise plan and any ongoing restrictions/ recommendations reviewed. If unable to be reached in office, I recommend evaluation at nearest Emergency Room if any symptoms worsened or new symptoms develop for requiring urgent evaluation. Visit was preformed using [employer]ome [id number] [employer] submersible speech recognition. documented in this encounter [facility] 04-06-2025 Note [place] Cardiology - [facility] Subjective Dayana Steele is a 59 y.o. year old female patient being seen for follow-up visit on hypertension, hyperlipidemia, diabetes mellitus, obesity and fatty liver follow-up visit Patient Active Problem List Diagnosis Benign hypertensive heart disease without heart failure Mixed hyperlipidemia Diabetes mellitus type II, non insulin dependent (CMS/HCC) Fatty liver Positive colorectal cancer screening using Cologuard test Pure hypercholesterolemia Chronic GERD HPI 04/06/2025 Patient reports that yesterday after she did many errands in the town and after she went back home she felt feverish and back pain which has been going on for about 2 months and some chest tightness. She checked her blood pressure and was significantly elevated. She took her usual evening dose of Coreg. Today she feels much better. She denies any upper respiratory symptoms or other signs of possible viral infection. She denies chest discomfort on exertion. She denies exertional dyspnea, orthopnea or paroxysmal nocturnal dyspnea. She denies dizziness or palpitations or legs edema. She reports that her sugar has been under better control. Reports that she had lower back pain and she received physical therapy and it is better however lately she has been having back pain in the thoracic area all the time. She does not take any analgesics and she did not receive any physical therapy 10/11/2024 Patient with history of hypertension, hyperlipidemia, diabetes mellitus and fatty liver. She was evaluated for chest pain back in 2022 but she had normal echo and stress test She is here today for follow-up visit. She states that she has been doing well. She denies any chest pain at rest or with exertion. She reports shortness of breath when she does yard work but she does not exercise on regular basis. She denies orthopnea or paroxysmal nocturnal dyspnea or dizziness or palpitations or legs edema She reports that her diabetes mellitus lately is under control She smoked only when she was a teenager. She drinks alcohol every once a while probably 1 drink ROS All systems were reviewed and they were negative except for the positive findings noted above in the history Past Medical History: Diagnosis Date Benign hypertensive heart disease without heart failure 12/09/2022 Diabetes mellitus (CMS/HCC) Fatty liver Hyperlipidemia Hypertension History reviewed. No pertinent surgical history. No family history on file. Social History Tobacco Use Smoking status: Never Smokeless tobacco: Former Substance Use Topics Alcohol use: Yes Alcohol/week: 1.0 standard drink of alcohol Types: 1 Cans of beer per week Drug use: Never Allergies No Known Allergies Medications Current Outpatient Medications: adalimumab (Humira,CF, Pen Zjfq-Bd-Afzo HS) 80 mg/0.8 mL-40 mg/0.4 mL pen injector kit pen-injector starter kit, Inject 80 mg (contents of one pen) under the skin on day 1. Inject 40 mg (contents of one pen) under the skin on day 8 and day 22., Disp: , Rfl: carvedilol (Coreg) 12.5 mg tablet, TAKE 1 TABLET (12.5 MG) BY MOUTH WITH BREAKFAST AND EVENING MEAL, Disp: 180 tablet, Rfl: 3 DULoxetine (Cymbalta) [address] capsule, Take 20 mg by mouth in the morning. Do not crush or chew., Disp: , Rfl: Farxiga 10 mg, Take 1 tablet by mouth in the morning., Disp: , Rfl: levothyroxine (Synthroid, Levoxyl) 75 mcg tablet, TAKE 1/2 A TABLET BY MOUTH IN THE MORNING ON AN EMPTY STOMACH, Disp: , Rfl: metFORMIN (Glucophage) 500 mg tablet, TAKE 1 TABLET BY MOUTH EVERY DAY WITH A MEAL FOR 90 DAYS, Disp: , Rfl: omeprazole (PriLOSEC) [address] capsule, TAKE 1 CAPSULE BY MOUTH EVERY DAY 30 MINUTES BEFORE MORNING MEAL, Disp: , Rfl: Trulicity 1.5 mg/0.5 mL pen injector, as directed Subcutaneous once weekly for 28 days, Disp: , Rfl: SITagliptin phosphate (Januvia) 25 mg tablet, Take 25 mg by mouth in the morning. (Patient not taking: Reported on 04/06/2025), Disp: , Rfl: Taltz Autoinjector 80 mg/mL auto-injector, as directed Subcutaneous (Patient not taking: Reported on 04/06/2025), Disp: , Rfl: Objective Visit Vitals BP (!) 144/95 (BP Location: Right arm, Patient Position: Sitting) Pulse 84 Ht 1.575 m (5' 2 ) Wt 78.9 kg (174 lb) SpO2 97% BMI 31.83 kg/m??? Smoking Status Never BSA 1.86 m??? Physical exam: GENERAL: alert and oriented x3, well developed, in no acute distress. HEAD: atraumatic, normocephalic. EYES: LEONA, EOMI. NECK: trachea midline, no JVD present, no carotid bruits present. CARDIAC: S1, S2 present. RRR. No murmur, rubs, or gallops. RESPIRATORY: CTAB, no increased effort of breathing, no rales, rhonchi, or wheezing. ABDOMEN: soft, nontender, nondistended. EXTREMITIES: no lower extremity edema. No rash/skin discoloration present. NEURO: strength/sensation equal and symmetric in bilateral upper and lower extremities. PSYCH: appropriate mood (more content not included)... [facility] 03-13-2025 History of Present illness Narrative Associated Order(s): L Inj/Asp: R subacromial bursa Post-Procedure Diagnose(s): Impingement of right shoulder Images from the original note were not included. Orthopedic Office note: NAME: Dayana Steele : 1965 (EST W/TIKA, NEW PROBLEM) RT SHOULDER PAIN X 1 MONTH. DENIES INJURY XRAY TODAY EPIC 03/13/25 PAIN OVER LATERAL SHOULDER AND RADIATES TO UPPER ARM. PAIN WITH ROM AND GETTING DRESSED. PAINFUL TO REACH ACROSS AND BEHIND. + WAKE AT HS WHEN SHE LAYS ON RT SIDE. DENIES WEAKNESS. DENIES N/T. TRIED IBU. TAKES HUMIRA INJ FOR PSORIASIS HAD SIMILAR PROBMEM IN LT SHOULDER- RELIEF WITH CORTISONE INJ Shoulder Musculoskeletal Exam Inspection Right Right shoulder inspection is normal. Ecchymosis: none Peripheral edema: none Atrophy: none Deformity: AC joint prominence Masses: none Palpation Right Crepitus: no crepitus Increased warmth: none Tenderness: present Anterior shoulder: mild AC joint: moderate Medial scapula: mild Medial scapula comment: only on deep palpation- no zoster like rash. Lateral arm: mild Range of Motion Right Right shoulder range of motion is normal. Active ROM: pain. Passive ROM: pain. Right shoulder active abduction: + pain passing 90 degrees. Strength Right External rotation: 5/5. External rotation is not affected by pain. Internal rotation: 5/5. Internal rotation is not affected by pain. Abduction: 5/5. Abduction is not affected by pain. Biceps: 5/5. Triceps: 5/5. Neurovascular Right Radial pulse: normal and 2+ Capillary refill: <3 sec Axillary nerve sensory distribution: normal Scapula Right Right shoulder scapula is normal. Position: normal Winging: none Special Tests Right Rotator Cuff Signs Neer's test: positive Badillo test: positive Painful arc test: positive Biceps/tristan Signs Speed's test: negative General Constitutional: appears stated age Neurological: alert and oriented x3 Orders Placed This Encounter Procedures L Inj/Asp This order was created via procedure documentation XR shoulder 2+ views right Reason for exam:: pain L Inj/Asp: R subacromial bursa on 03/13/2025 10:54 AM Indications: pain Details: 21 G needle, posterior approach Medications: 40 mg methylPREDNISolone acetate 40 MG/ML; 1 mL bupivacaine PF 0.5 % Outcome: tolerated well, no immediate complications Utilizing aseptic technique with universal precautions . Pt given injection Right Shoulder SA space (Code 77590 RT) Procedure, treatment alternatives, risks and benefits explained, specific risks discussed. Consent was given by the patient. Patient was prepped and draped in the usual sterile fashion. Results - Imaging: - X-rays show right shoulder impingement and AC joint arthritis ICD-10-CM 1. Acute pain of right shoulder M25.511 XR shoulder 2+ views right 2. Arthritis of right acromioclavicular joint M19.011 3. Impingement of right shoulder M25.811 Assessment & Plan Right shoulder pain X-rays were discussed at bedside. There is no recall of any specific injury. Pain is noted with arm abduction and cross body motions. No fever or clinical signs concerning for infection. Surprisingly, there is excellent range of motion and rotator cuff strength is intact without pain on stressing. Surgical and nonsurgical treatment options were discussed. She is agreeable to a subacromial injection with risks and benefits discussed. She has gotten relief with this in the left shoulder previously. Activity modifications were also discussed. Post injection pain discussed. If symptoms persist or worsen, an MRI will be considered for further evaluation. Consider possible Roberto procedure. Treatment plan: A subacromial injection will be administered. Activity modifications were discussed to avoid exacerbating the pain. Post injection pain was discussed, and she was advised on how to manage it. If symptoms persist or worsen, an MRI will be considered for further evaluation. A possible Roberto procedure may be considered in the future. Right shoulder impingement X-rays were discussed at bedside. There is no recall of any specific injury. Pain is noted with arm abduction and cross body motions. No fever or clinical signs concerning for infection. Surprisingly, there is excellent range of motion and rotator cuff strength is intact without pain on stressing. Surgical and nonsurgical treatment options were discussed. She is agreeable to a subacromial injection with risks and benefits discussed. She has gotten relief with this in the left shoulder previously. Activity modifications were also discussed. Post injection pain discussed. If symptoms persist or worsen, an MRI will be considered for further evaluation. Consider possible Roberto procedure. Treatment plan: A subacromial injection will be administered. Activity modifications were discussed to avoid exacerbating the pain. Post injection pain was discussed, and she was advised on how to manage it. If symptoms persist or worsen, an MRI will be considered for further evaluation. A possible Roberto procedure may be considered in the future. AC joint arthritis X-rays were discussed at bedside. There is no recall of any specific injury. Pain is noted with arm abduction and cross body motions. No fever or clinical signs concerning for infection. Surprisingly, there is excellent range of motion and rotator cuff strength is intact without pain on stressing. Surgical and nonsurgical treatment options were discussed. She is agreeable to a subacromial injection with risks and benefits discussed. She has gotten relief with this in the left shoulder previously. Activity modifications were also discussed. Post injection pain discussed. If symptoms persist or worsen, an MRI will be considered for further evaluation. Consider possible Roberto procedure. Treatment plan: A subacromial injection will be administered. Activity modifications were discussed to avoid exacerbating the pain. Post injection pain was discussed, and she was advised on how to manage it. If symptoms persist or worsen, an MRI will be considered for further evaluation. A possible Roberto procedure may be considered in the future. Follow-up: She will follow up in 1 month. PROCEDURE Procedure Performed Subacromial injection Pt seeing Diabetic diet with injection today- montior sugars. Questions answered in laymen terms at the bedside. The diagnosis, home exercise plan and any ongoing restrictions/ recommendations reviewed. If unable to be reached in office, I recommend evaluation at nearest Emergency Room if any symptoms worsened or new symptoms develop for requiring urgent evaluation. Visit was preformed using vendome [id number] Co-pilot submersible speech recognition. documented in this encounter [facility] 11-08-2024 History of Present illness Narrative Discharge Criteria Outpatients must meet criteria 1 through 7. Up to restroom, void sufficient amount. Yes. Gait steady when up 1. Minimum 30 minutes after last dose of sedative medication, minimum 120 minutes after last dose of reversal agent. Yes 2. Systolic BP stable within 20 mmHg for 30 minutes & systolic BP between 90 & 180 or within 10 mmHg of baseline. Yes 3. Pulse between 60 and 100 or within 10 bpm of baseline. Yes 4. Spontaneous respiratory rate >/= 10 per minute. Yes 5. SaO2 >/= 95 or >/= baseline. Yes 6. Able to cough and swallow or return to baseline function. Yes 7. Alert and oriented or return to baseline mental status. Yes 8. Demonstrates controlled, coordinated movements, ambulates with steady gait, or return to baseline activity function. Yes 9. Minimal or no pain or nausea, or at a level tolerable and acceptable to patient. Yes 10. Takes and retains oral fluids as allowed. Yes 11. Procedural / perioperative site stable. Minimal or no bleeding. Yes 12. If GI endoscopy procedure, minimal or no abdominal distention or passing flatus. Yes 13. Written discharge instructions and emergency telephone number provided. Yes 14. Accompanied by a responsible adult. Yes Adult patient discharged from facility without responsible person meets above criteria plus the following: a) remains awake without stimulus for 30 minutes b) oriented appropriate for age c) all vital signs stable d) no significant risk of losing protective reflexes e) able to maintain pre-procedure mobility without assistance f) no nausea or dizziness g) transportation arrangements that do not require patient to operate motor Vehicle. Yes [facility] Preadmission Testing Name: Dayana Steele : 1965 Patient (home) Procedure: EGD Date of Procedure: 11/08/2024 Surgeon: Jhonatan Crane MD Ht: 157.5 cm (5' 2 ) Wt: 81.6 kg (180 lb) Wt method: Stated Allergies: Allergies Allergen Reactions Black Pepper-Turmeric Other Reaction(s): sneezing There were no vitals filed for this visit. No LMP recorded. Patient has had an ablation. Do you take blood thinners? [] Yes [x] No Instructed to stop blood thinners prior to procedure? [] Yes [] No [x] N/A Do you have sleep apnea? [] Yes [x] No Do you have acid reflux ? [x] Yes [] No Do you have hiatal hernia? [] Yes [x] No Do you ever experience motion sickness? [] Yes [x] No Have you had a respiratory infection or sore throat in last 4 weeks before surgery? [] Yes [x] No Do you have poorly controlled asthma or COPD? Difficulty with intubation in past? [] Yes [x] No [] Yes [x] No Do you have a history of angina in the last month or symptomatic arrhythmia? [] Yes [x] No Do you have significant central nervous system disease? [] Yes [x] No Have you had an EKG, labs, or chest xray in last 12 months? If yes provide copies to anesthesia [] Yes [] No [x] Lab [x] EKG [] CXR Have you had a stress test? [] Yes [x] No When/where: Was it normal? [] Yes [] No Do you or your family have a history of Malignant Hyperthermia? [] Yes [x] No Do you smoke? [] Yes [x] No Please refrain from smoking on the day of surgery. Patient instructed on: [x] NPO Status [x] Meds to Take [x] Hold GLP-1 Receptor Agonist [x] Ride Home [x] No Jewelry/Contact Lenses/Nail Japanese [] Prep/Lax/Clear Liquids [] Chlorhexidene DOS Patient Needs [] HCG [x] Blood Sugar [] PT/INR [] T&S Do you have any metal allergies? [] Yes [x] No If yes, to what metals: Patient instructed on the pre-operative, intra-operative, and post-operative process? Yes Medication instructions reviewed with patient? Yes documented in this encounter [facility] 11-08-2024 Hospital Discharge instructions Jhonatan Crane MD - 11/08/2024 9:42 AM EDT Images from the original note were not included. 1) The medication list attached to this after visit summary is not correct. Make sure to follow up with you PCP soon to make sure you are on the correct medications. 2) Your symptoms are consistent laryngeal pharyngeal reflux. You will need a higher dose of medication to control you symptoms. Increase omeprazole to 40 mg per day. Make sure to take it on an empty stomach. 3) If your diabetes is not well controlled, this can affect how your stomach works. It is important to get and keep your blood sugar under control 4) Follow up with me in about 4 weeks to see how the higher does of medication works. 5) You also need to modify your diet and life style to help with reflux. Information is included below. Discharge Instructions for EGD An EGD or upper GI endoscopy is a visual exam of the lining of the esophagus, stomach (gastric) and duodenum (the first part of the small intestine). An endoscopy is a flexible tube with a light and a viewing device. It allows the doctor to view the inside of the colon through a tiny video camera. EGD is performed for many reasons: unexplained anemia , pain, bleeding, heart burn, among many other reasons. Complications from a EGD are rare. Some possible serious complications include perforated bowel (which might require surgery) and bleeding (which could require blood transfusion ). Minor complications include bloating, gas, and cramping that can last for 1-2 days after the procedure. Because air is put into your upper GI during the procedure, it is normal to pass large amounts of air from your rectum and burp a lot. What You Will Need Someone to drive you home after the procedure Steps to Take Home Care Rest when you get home. Because the sedative will make you drowsy, don't drive, operate machinery, or make important decisions the day of the procedure. Feelings of bloating, gas, or cramping may persist for 24 hours. Diet Try sips of water first. If tolerated, resume regular diet or the diet recommended by your physician. Do not drink alcohol for 24 hours. Physical Activity You may return to work tomorrow. Do not drive, operate heavy machinery, or do activities that require coordination or balance until tomorrow Otherwise, return to your normal routine as soon as you are comfortable to do so, which is usually the next day after the procedure. Medications When taking medications, it's important to: Take your medication as directednot more, not less, not at a different time. Do not stop taking them without consulting your healthcare provider. Don't share them with anyone else. Know what effects and side effects to expect, and report them to your healthcare provider. If you are taking more than one drug, even if it is an kogm-uoe-zlgatcc medication, herb, or dietary supplement, be sure to check with a physician or pharmacist about drug interactions. Plan ahead for refills so you don't run out. Follow-up You will be called with your results usually within a week or We will have you make a follow up appointment if needed You are always welcome to follow up in person if you have questions or there are other issue you would like addressed Call Your Doctor If Any of the Following Occurs Monitor your recovery once you leave the hospital. As soon as you have a problem, alert your doctor. If any of the following occur, call your doctor or come to the emergency room Bleeding from your rectum; notify your doctor if you pass a teaspoonful or more of blood Black, tarry stools Severe abdominal or chest pain pain Hard, swollen abdomen Signs of infection, including fever or chills Inability to pass gas or stool Coughing, shortness of breath, chest pain, severe nausea or vomiting In case of an emergency, call 911 immediately. Gastroesophageal Reflux Disease (GERD): Care Instructions Overview Gastroesophageal reflux disease (GERD) is the backward flow of stomach acid into the esophagus. The esophagus is the tube that leads from your throat to your stomach. A one-way valve prevents the stomach acid from backing up into this tube. But when you have GERD, this valve does not close tightly enough. This can also cause pain and inflammation in your esophagus. (This is called esophagitis.) You may also hear GERD called acid reflux. If you have mild GERD symptoms including heartburn, you may be able to control the problem with antacids or gszq-jrq-lpmurho medicine. You can also make lifestyle changes to help reduce your symptoms. These include changing your diet and eating habits, such as not eating close to bedtime and staying at a weight that's healthy for you. Follow-up care is a dolan part of your treatment and safety. Be sure to make and go to all appointments, and call your doctor if you are having problems. It's also a good idea to know your test results and keep a list of the medicines you take. How can you care for yourself at home? Take your medicines exactly as prescribed. Call your doctor if you think you are having a problem with your medicine. Your doctor may recommend vefn-cou-fiuyycs medicine. For mild or occasional indigestion, antacids, such as Tums, Mylanta, or Maalox, may help. Your doctor also may recommend obwf-vgl-emtdngl acid reducers, such as famotidine (Pepcid AC), cimetidine (Tagamet HB), or omeprazole (Prilosec). Read and follow all instructions on the label. If you use these medicines often, talk with your doctor. Stay at a weight that's healthy for you. Extra weight puts a lot of pressure on the valve between the stomach and esophagus. Losing even a few pounds can help. Talk to your doctor if you need help losing weight. Change your eating habits. Try to eat several small meals instead of two or three large meals. After you eat, wait 2 to 3 hours before you lie down. Snacking close to bedtime can make your symptoms worse. Avoid foods that make your symptoms worse. These may include chocolate, mint, alcohol, pepper, spicy foods, high-fat foods, or drinks with caffeine in them, such as tea, coffee, ellen, or energy drinks. If your symptoms are worse after you eat a certain food, you may want to stop eating it to see if your symptoms get better. Try to quit smoking or chewing tobacco, or cut back as much as you can. If you need help quitting, talk to your doctor about quit-tobacco programs and medicines. These can increase your chances of quitting for good. If you have GERD symptoms while trying to sleep, raise the head of your bed 6 to 8 inches by putting the frame on blocks or placing a foam wedge under the head of your mattress. (Adding extra pillows does not work.) Do not wear tight clothing around your middle. When should you call for help? Call 911 anytime you think you may need emergency care. For example, call if: You passed out (lost consciousness). Call your doctor now or seek immediate medical care if: You have new or worse belly pain. Your stools are black and tarlike or have streaks of blood. You vomit blood. Watch closely for changes in your health, and be sure to contact your doctor if: Your symptoms have not improved after 2 weeks. Food seems to catch in your throat or chest. Where can you learn more? Go to https://www.Lovely.net/patient Ed and enter T927 to learn more about Gastroesophageal Reflux Disease (GERD): Care Instructions. Current as of: May 13, 2024 Content Version: 14.4 [employer]. Care instructions adapted under license by [employer]. If you have questions about a medical condition or this instruction, always ask your healthcare professional. [employer], disclaims any warranty or liability for your use of this information. Enfermedad de reflujo gastroesof gico (GERD): Instrucciones de cuidado Gastroesophageal Reflux Disease (GERD): Care Instructions Instrucciones de cuidado La enfermedad por reflujo gastroesof gico (ERGE) es cuando el cido estomacal fluye de vuelta al es fago. El es fago es el tubo que va desde la garganta al est alysha. [place]cy v lvula de quincy ifrah v a hernandez que el cido estomacal fluya de vuelta por celia tubo. Cuando usted tiene ERGE, esta v lvula no se carlos herm ticamente. [place] tambi n puede causar dolor e hinchaz n en el es fago (esofagitis). Si tiene s ntomas leves de ERGE, kaykay acidez estomacal, es posible que pueda controlar el problema con anti cidos o medicamentos de venta key. Cambiar la dieta y los h bitos de alimentaci n, kaykay no comer tarde por la noche, bajar de peso y hacer otros cambios en el estilo de sarthak tambi n puede ayudar a aliviar los s ntomas. La atenci n de seguimiento es quincy parte clave de reynoso tratamiento y seguridad. Aseg rese de hacer y acudir a todas las citas, y llame a reynoso m dico si est teniendo problemas. Tambi n es quincy buena idea saber los resultados de iraida ex menes y mantener quincy lista de los medicamentos que anderson. C mo puede cuidarse en el hogar? Parks los medicamentos exactamente kaykay le fueron recetados. Llame a reynoso m dico si jin estar teniendo problemas con reynoso medicamento. El m dico podr a recomendarle medicamentos de venta key. Para la indigesti n leve u ocasional, los anti cidos, kaykay Tums, Gaviscon, Mylanta o Maalox, pueden ayudar. El m dico tambi n puede recomendar reductores de cido de venta key, kaykay famotidina (Pepcid AC), cimetidina (Tagamet HB) u omeprazol (Prilosec). Jania y siga todas las indicaciones de la etiqueta. Si usa estos medicamentos a menudo, hable con el m dico. Cambie iraida h bitos alimentarios. Es mejor comer varias comidas juan as en lugar de dos o tara comidas abundantes. Despu s de comer, espere de 2 a 3 horas antes de recostarse. Evite alimentos que empeoran iraida s ntomas. Estos pueden incluir chocolate, menta, alcohol, diogenes, alimentos picantes, alimentos ricos en grasas o bebidas con cafe na, kaykay t , caf , refrescos de cola o bebidas energ agustín. Si los s ntomas empeoran despu s de comer un determinado alimento, se recomienda que deje de comerlo para jevon si mejoran los s ntomas. No fume ni masque tabaco. Fumar puede agravar la GERD. Si necesita ayuda para dejar de usar tabaco, hable con reynoso m dico sobre programas y medicamentos para dejar de usarlo. Estos pueden aumentar iraida probabilidades de dejar el h bito para siempre. Si tiene s ntomas de GERD jen la noche, eleve la cabecera de reynoso cama entre 6 y 8 pulgadas (entre 15 y 20 cm) colocando ladrillos debajo de la estructura de la cama o quincy cu a de espuma debajo de la cabecera del colch n. (Usar almohadas adicionales no funciona). No use ropa ajustada alrededor de la parte media del cuerpo. Baje de peso, si necesita hacerlo. Perder mckeon solo entre 5 y 10 libras (2.3 a 4.5 kg) puede ayudarle. Cu ndo debe pedir ayuda? Llame a reynoso m dico ahora mismo o busque atenci n m dica inmediata si: Tiene un dolor de est alysha nuevo o distinto. Iraida heces son negruzcas y parecidas al alquitr n o tienen rastros de doreen. Preste especial atenci n a los cambios en reynoso marvin y aseg rese de comunicarse con reynoso m dico si: Iraida s ntomas no sandoval meet despu s de 2 d as. La comida parece quedarle atorada en la garganta o el pecho. D nde puede encontrar m paresh informmichael n? Vaya a [email or web address] atientedes e escriba T927 para m s informaci n sobre Enfermedad de reflujo gastroesof gico (GERD): Instrucciones de cuidado. Revisado: 2023 Versi n del contenido: 14.4 [facility]. Las instrucciones de cuidado fueron adaptadas bajo licencia por [facility]. Si usted tiene preguntas sobre quincy afecci n m dica o sobre estas instrucciones, siempre pregunte a reynoso profesional de marvin. [place], [place], niega toda garant a o responsabilidad por reynoso uso de esta informaci n. documented in this encounter [facility] 10-11-2024 Note [facility] Subjective Dayana Steele is a 59 y.o. 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 She was evaluated for chest pain back in 2022 but she had normal echo and stress test She is here today for follow-up visit. She states that she has been doing well. She denies any chest pain at rest or with exertion. She reports shortness of breath when she does yard work but she does not exercise on regular basis. She denies orthopnea or paroxysmal nocturnal dyspnea or dizziness or palpitations or legs edema She reports that her diabetes mellitus lately is under control She smoked only for when she was a teenager. She drinks alcohol every once a while probably 1 drink ROS All systems were reviewed and they were negative except for the positive findings noted above in the history Past Medical History: Diagnosis Date Benign hypertensive heart disease without heart failure 12/09/2022 Diabetes mellitus (CMS/HCC) Fatty liver Hyperlipidemia Hypertension No past surgical history on file. Family History Problem Relation Name Age of Onset No Known Problems Mother No Known Problems Father No Known Problems Sister No Known Problems Brother Social History Tobacco Use Smoking status: Never Smokeless tobacco: Former Substance Use Topics Alcohol use: Yes Alcohol/week: 1.0 standard drink of alcohol Types: 1 Cans of beer per week Drug use: Never Allergies No Known Allergies Medications Current Outpatient Medications: adalimumab (Humira,CF, Pen Sukt-Hz-Yujp HS) 80 mg/0.8 mL-40 mg/0.4 mL pen injector kit pen-injector starter kit, Inject 80 mg (contents of one pen) under the skin on day 1. Inject 40 mg (contents of one pen) under the skin on day 8 and day 22., Disp: , Rfl: carvedilol (Coreg) 12.5 mg tablet, TAKE 1 TABLET (12.5 MG) BY MOUTH WITH BREAKFAST AND EVENING MEAL, Disp: 180 tablet, Rfl: 3 DULoxetine (Cymbalta) [address] capsule, Take 20 mg by mouth in the morning. Do not crush or chew., Disp: , Rfl: levothyroxine (Synthroid, Levoxyl) 75 mcg tablet, TAKE 1/2 A TABLET BY MOUTH IN THE MORNING ON AN EMPTY STOMACH, Disp: , Rfl: metFORMIN (Glucophage) 500 mg tablet, TAKE 1 TABLET BY MOUTH EVERY DAY WITH A MEAL FOR 90 DAYS, Disp: , Rfl: omeprazole (PriLOSEC) [address] capsule, TAKE 1 CAPSULE BY MOUTH EVERY DAY 30 MINUTES BEFORE MORNING MEAL, Disp: , Rfl: SITagliptin phosphate (Januvia) 25 mg tablet, Take 25 mg by mouth in the morning., Disp: , Rfl: Taltz Autoinjector 80 mg/mL auto-injector, as directed Subcutaneous, Disp: , Rfl: Trulicity 1.5 mg/0.5 mL pen injector, as directed Subcutaneous once weekly for 28 days, Disp: , Rfl: Objective Visit Vitals BP 126/82 (BP Location: Left arm, Patient Position: Sitting) Pulse 96 Ht 1.575 m (5' 2 ) Wt 81.6 kg (180 lb) SpO2 98% BMI 32.92 kg/m??? Smoking Status Never BSA 1.89 m??? Physical exam: GENERAL: alert and oriented x3, well developed, in no acute distress. HEAD: atraumatic, normocephalic. EYES: LEONA, EOMI. NECK: trachea midline, no JVD present, no carotid bruits present. CARDIAC: S1, S2 present. RRR. No murmur, rubs, or gallops. RESPIRATORY: CTAB, no increased effort of breathing, no rales, rhonchi, or wheezing. ABDOMEN: soft, nontender, nondistended. EXTREMITIES: no lower extremity edema. No rash/skin discoloration present. NEURO: strength/sensation equal and symmetric in bilateral upper and lower extremities. PSYCH: appropriate mood, affect, and judgement. Recent Labs 04/25/2024 TSH 2.79, free T40.94 03/03/2024 White blood count 6.6, hemoglobin 14.7, hematocrit 44.8, platelets 296 Sodium 137, potassium 4.6, BUN 14, creatinine 0.88, GFR above 60, glucose 261, HbA1c 9.4% Calcium 9.3 Total bilirubin 0.5, AST 76, ALT 212, alk phos 220, total protein 7.4, albumin 3.4 Triglyceride 145, cholesterol 191, LDL 110, HDL 52 Imaging and other tests EK03/03/2024 showed normal sinus rhythm, heart rate 71 bpm, left axis deviation, voltage criteria for LVH, nonspecific T wave changes Echo: 10/13/2022 at [facility] nuclear stress test: 10/13/2022 at [facility] Nuclear result EKG result Assessment/Plan Essential hypertension, on carvedilol, well-controlled Hyperlipidemia, not on medications due to elevated liver enzyme Type 2 diabetes mellitus Obesity, BMI 32.9 kg/m??? Fatty liver with elevated liver enzyme Psoriasis, on Humira Hypothyroidism GERD Plan: Continue carvedilol and low-salt diet Obta (more content not included)... [facility] 09-25-2024 Telephone encounter Note Appointment today was supposed to be in April which she already has scheduled. Please let patient know she does not need to come in today [facility] 09-25-2024 Miscellaneous Notes Appointment today was supposed to be in April which she already has scheduled. Please let patient know she does not need to come in today documented in this encounter [facility] 08-10-2024 History of Present illness Narrative Images from the original note were not included. Follow up Diagnosis: Psoriasis/psoriatic arthritis Location: Face, elbows, back, lower legs, baseline BSA 60% and SPGA 4 Last visit: 11/18/2023, first follow up since starting biologic Symptoms: itching, joint pain Status: Clear, redness is still present and no change with joint pain in feet and lower legs Treatments tried and failed: Humaria Current treatment: switched from Humaria to Taltz since last visit, TAC cream bid Improvement with redness, scaling, and itching since starting Taltz. Taltz PA approved until 08/25/2024 Negative TB 06/2023, 06/05/2024 Current weight:187.0 lb All pertinent medical history, medications, and allergies were reviewed. General Exam: alert, oriented to person, place, and time, normal affect, well appearing Unaccompanied A focused exam completed based on patient reported problems, see below: 1. Psoriasis vulgaris (CMS/HCC) PIH. Improvement since last visit. BSA 0%. Much more improved today on Taltz The patient was informed that psoriasis is a chronic condition that can be controlled but not cured. Plan to switch to Taltz as patient is not clearing with Humira and continues to suffer with joint pain and itching. Do not inject if feeling ill, restart when feeling better. Explained to patient it can take up to 6 months before improvement with joint pain and taltz will help to protect the joints. Continue Taltz 80 mg injected subcutaneous, see order. Follow up in April 2025. Notify office if any worsening despite treatment. Taltz application filled out by patient and provided to biologic coordinator. Related Medications adalimumab (Humira-Psoriasis/Uveit Starter) 80 MG/0.8ML [...] groin, or underarms, 30 day supply 2. High risk medication use Next Visit: April 2025 documented in this encounter [facility] 05-22-2024 History of Present illness Narrative Images [...] Visit: 4 months documented in this encounter [facility] 05-01-2024 History of Present illness Narrative Associated Order(s): L Inj/Asp: L subacromial bursa Post-Procedure Diagnose(s): Left shoulder tendonitis Images from the original note were not included. Subjective Patient ID: Dayana Steele is a 58 y.o. female. LT Shoulder [...] mri of the left shoulder done at [facility] on 04/04/24, reveals adhesive capsulitis and [...] to decrease first. documented in this encounter [facility] 12-21-2023 History of Present illness Narrative ----- Thursday, December 21, 2023 at 11:49:45 AM ----- ----- Provider: Resident Arianne -- Clinic: [place] ----- COMPOSITE SABIANIST Patient is scheduled for Restorationism on tooth #9 surface F5. Reviewed Medical History. Pt exhibited the following conditions: No significant medical history Patient is ready for treatment. Topical Benzocaine gel applied at the injection site for 2 minutes. Administered 1 carpules of Lidocaine, 2% with Epinephrine 1:100,000,. isolation achieved. Decay/existing restorationist removed, cavity prepared. Selectively etched enamel with 37% phosphoric acid, rinsed, and blot dried. OptiBond hills applied and light-cured. Condensed packable composite shade A3 in light cured increments using Retraction cord with hemostatic gel Finished with finishing burs, checked occlusion, verified proximal contacts and restorationist was polished. Rinsed and suctioned intraorally, advised patient to not eat until local anesthesia wears off. POST OPERATIVE Periapical (single) RADIOGRAPH TAKEN. Next Visit: Restorative ----- Signed on Thursday, December 21, 2023 at 3:48:00 PM ----- ----- Provider: [id number] - Chelsea Sun DDS -- Clinic: [place] ----- documented in this encounter [facility] 12-14-2023 History of Present illness Narrative ----- Thursday, December 14, 2023 at 12:33:43 PM ----- ----- Provider: [id number] - Resident Anahi -- Clinic: [place] ----- COMPOSITE SABIANIST Patient is scheduled for Restorationism on tooth #18 surface DO. Reviewed Medical History. Pt exhibited the following conditions: No significant medical history Patient is ready for treatment. Topical Benzocaine gel applied at the injection site for 2 minutes. Administered 1 carpules of Lidocaine, 2% with Epinephrine 1:100,000,. Cotton roll isolation achieved. Decay/existing restorationist removed, cavity prepared. Selectively etched enamel with 37% phosphoric acid, rinsed, and blot dried. Xeno IV hills applied and light-cured. Condensed packable composite shade A2 in light cured increments using Automatrix. Finished with finishing burs, checked occlusion, verified proximal contacts and restorationist was polished. Rinsed and suctioned intraorally, advised patient to not eat until local anesthesia wears off. POST OPERATIVE Periapical (single) RADIOGRAPH TAKEN. Next Visit: Mercedes ----- Signed on Thursday, December 14, 2023 at 2:29:42 PM ----- ----- Provider: [id number] - Pasquale Martin DDS -- Clinic: [place] ----- documented in this encounter [facility] 10-22-2023 History of Present illness Narrative ----- Sunday, October 22, 2023 at 12:00:23 PM ----- ----- Provider: [id number] Geovanny Mac Hygienist -- Clinic: [place] ----- [facility], Pt is ready for tx. Pt [...] see chart RECALL/ 6months. Amina Gann RDH documented in this encounter [facility] Work Phone: 09-15-2023 History of Present illness Narrative ----- Friday, September 15, 2023 at 11:18:51 AM ----- ----- Provider: [id number] Resident Olga -- Clinic: [place] ----- INITIAL/COMPREHENSIVE EXAM Patient presents for an [...] 2023 at 11:23:03 AM ----- ----- Provider: [id number] Geovanny Martin DDS -- Clinic: [place] ----- documented in this encounter [facility] Work Phone: 06-16-2023 Evaluation note Encounter Date Diagnosis Assessment [...] no improvement in 2 to 3 days [employer] Other 03-20-2023 NoteCARDIAC STRESS TEST Requesting Physician: [...] seen. EKG portion is negative for ischemia.[id number] Evaluation [facility]* Encounter Date Diagnosis Assessment Notes [...] care provider if no improvement of symptoms [employer] Other 12-06-2022 Evaluation note* Encounter Date Diagnosis [...] other viral communicable diseases (ICD-10 - Z20.828) [employer] Other 05-26-2022 Evaluation note* Encounter Date Diagnosis Assessment Notes Treatment Notes Treatment Clinical Notes November, Cough (ICD-10 - R05.9) November, COVID-19 (ICD-10 - U07.1) Today you tested positive for the COVID virus. This mean you need to follow all CDC quarantine guidelines found at [email or web address] v. It is important to rest, increase [...] UP AND WHEN TO SEEK EMERGENCY TREATMENT [employer] Other Evaluation + Plan note No data available for this section [facility] Diagnosis Chest pain, unspecified type- Primary Anxiety state Anxiety state, unspecified documented in this encounter [employer] Work Phone: evaluation note* Diagnosis Onset Date Resolution Status Anxiety acute Bilateral foot pain acute Diabetes acute HTN (hypertension) acute Onychomycosis acute Psoriasis (a type of skin inflammation) acute [facility] Work Phone: Evaluation note* Diagnosis Left shoulder pain, unspecified chronicity- Primary Arthritis of left acromioclavicular joint Left shoulder tendonitis Adhesive capsulitis of left shoulder documented in this encounter [facility]* Diagnosis Psoriasis vulgaris ([facility]) Other psoriasis Psoriatic arthritis ([facility]/HCC) Psoriatic arthropathy High risk medication use documented in this encounter [facility]* Diagnosis Psoriasis vulgaris (CMS/HCC)- Primary Other psoriasis High risk medication use documented in this encounter [facility]* Diagnosis Chronic GERD- Primary Pre-op testing Preoperative examination, unspecified Chronic GERD [facility] Diagnosis Chronic GERD- Primary Pre-op testing Preoperative examination, unspecified Chronic GERD documented [facility]* Diagnosis Chronic GERD- Primary [facility]* Diagnosis Acute pain of right shoulder- Primary Arthritis of right acromioclavicular joint Impingement of right shoulder [facility] Diagnosis Acute pain of right shoulder- Primary Arthritis of right acromioclavicular joint documented [facility] this encounter [facility] Narrative - Reported* Type Description Date Medical History Anxiety Medical History HTN (hypertension) Surgical History ablasion uterine [facility] Other History general Narrative - Reported* Type Description Date Medical History Anxiety Medical History HTN (hypertension) Surgical History ablasion uterine Hospitalization History Kidney Infection 1994 Hospitalization History chest pain [address] [facility] [employer] Other Hospital Discharge instructions* Attachments The following attachments cannot be sent through Care Everywhere. * Chest Pain (Croatian) * Anxiety Disorder (Croatian) [facility] Work Phone: Hospital Discharge instructions No data available for this section [facility] Narrative* Auth/Cert Specialty Diagnoses / Procedures Referred By Jacob myers Referred To Contact Diagnoses Chronic GERD Procedures NE ESOPHAGOGASTRODUODENOSCOPY TRANSORAL DIAGNOSTIC NE EGD BALLOON DILATION ESOPHAGUS <30 MM DIAM NE EGD TRANSORAL BIOPSY SINGLE/MULTIPLE ESOPHAGOGASTRODUODENOSCOPY Jhonatan Crane MD [address] [place] [id number] Phone: tel: [facility] [address] [place] [address] Referral ID Status Reason Start Date Expiration Date Visits Re quested Visits Authorized [id number] 1 1 [facility] [employer] [facility] Summary Purpose Family History No Family [...] Specialty Diagnoses / Procedures Referred By Jacob myers Referred To Contact Orthopaedic Surgery Diagnoses Left shoulder tendonitis Procedures L Inj/Asp: L subacromial bursa Dayana Woodard NP [address] [address] Referral ID Status Reason Start Date Expiration Date V isits Requested Visits Authorized [id number] Authorized 05/01/2024 10/28/2024 1 1 Additional Source [...] anymore. Reason Comments Pain Reason Comments Follow-up Reason Comments Pain PRN Active and Recently Administ ered Medications (unrecognized section and content) Medication Order 01/11/2021 01/12/2021 01/13/2021 iopamidol (ISOVUE-370) 76 % injection 100 mL (COMPLETED) 100 mL, Intravenous, IMG ONCE PRN, Other, Starting on 01/13/21 at 2059, For 1 dose 2118 (Given - Provid er: Leonila Fernando) Continuous Medication Order 11/06/2024 11/07/2024 11/08/2024 lactated ringers infusion IntraVENous, at 100 mL/hr, CONTINUOUS, Starting on Wed11/08/24 at 0830, Pre-op (day of surgery) 0809 (New Bag - Prov ider: Kady Carlson, LOGAN)0916 (NoRateChange - Provider: Prince Chávez APRN - BEHAVIORAL HEALTH RN)0932 (Anesthesia Volume Adjustment - Provider: Prince Chávez APRN - BEHAVIORAL HEALTH RN) INFORMATION SOURCE (unrecogn ized section and content) DATE CREATED AUTHOR 02/11/2022 [facility] DATE CREATED AUTHOR AUTHOR'S ORGANIZ ATION 10/15/2022 [facility] DATE CREATED AUTHOR AUTHOR'S ORGANIZ ATION 12/27/2023 [facility] DATE CREATED AUTHOR AUTHOR'S ORGANIZ ATION 04/09/2024 [facility] DATE CREATED AUTHOR AUTHOR'S ORGANIZ ATION 10/28/2024 [facility] DATE CREATED AUTHOR AUTHOR'S ORGANIZ ATION 11/13/2024 [facility] DATE CREATED AUTHOR AUTHOR'S ORGANIZ ATION 04/08/2025 [facility] DATE CREATED AUTHOR AUTHOR'S ORGANIZ ATION 04/11/2025 [facility] EPIC Care Teams (unrecognized sec tion and content) [...] End: April 19, 2024 Kymberly Banegas APRN [employer]OCOA POWDER MIXER OPERATOR-C Attending Provider Active Start: March End: April 19, 2024 Extrusion Die Repairer Relationship Specialty Start Date End Date Cassidy Escamilla NP [address] [place] [address] Referring Physician Family Medicine 05/01/24 Extrusion Die Repairer Relationship Specialty Start Date End Date Cassidy Escamilla NP [address] [place] [address] Referring Physician Family Medicine 05/01/24 Extrusion Die Repairer Relationship Specialty Start Date End Date Cassidy Escamilla NP [address] [place] [address] Referring Physician Family Medicine 05/01/24 Extrusion Die Repairer Relationship Specialty Start Date End Date Cassidy Escamilla NP [address] [place] [address] Referring Physician Family Medicine 05/01/24 Extrusion Die Repairer Relationship Specialty Start Date End Date Cassidy Escamilla NP [address] [place] [address] Referring Physician Family Medicine 05/01/24 Extrusion Die Repairer Relationship Specialty Start Date End Date Cassidy Escamilla NP [address] [place] [address] Referring Physician Family Medicine 05/01/24 Extrusion Die Repairer Relationship Specialty Start Date End Date Cassidy Escamilla NP [address] [place] [address] Referring Physician Family Medicine 05/01/24 Extrusion Die Repairer Relationship Specialty Start Date End Date Austin Kent PA [address] [place] [address] PCP - General Physician Water Conservationist 09/25/24 Extrusion Die Repairer Relationship Specialty Start Date End Date Austin Kent PA [address] [place] [address] PCP - General Physician Water Conservationist 09/25/24 Extrusion Die Repairer Relationship Specialty Start Date End Date Austin Kent PA [address] [place] [address] PCP - General Physician Water Conservationist 09/25/24 Extrusion Die Repairer Relationship Specialty Start Date End Date Austin Kent PA [address] [facility] [place] [address] PCP - General Family Medicine 03/13/25 Extrusion Die Repairer Relationship Specialty Start Date End Date Austin Kent PA [address] [facility] [place] [address] PCP - General Family Medicine 03/13/25 Extrusion Die Repairer Relationship Specialty Start Date End Date Austin Kent PA [address] [facility] [place] [address] PCP - General Family Medicine 03/13/25 Goals (unrecognized section and content) Goals may be documented in a n alternate section Ordered Prescriptions (unrec ognized section and content) Prescription Sig Dispense Quantity Refills Last Filled Start Date End Date omeprazole (PRILOSEC) 40 MG delayed release capsule Take 1 capsule by mouth every morning (before breakfast) 30 capsule 5 11/08/2024 FOR RECORDS PERTAINING TO PATIENTS WHO ARE [...] BE BASED ON THE PRIMARY CLINICAL RECORDS. [employer] provides no warranty or guarantee of the accuracy or completeness of information in this document.
== END 2025-05-01 13:55 | disposition home or self-care (01) ==
LOC: MAMMO 13:54
PROVIDERS: PCP Nurse Practitioner
DX: Z12.31 Encounter for screening mammogram for malignant neoplasm of breast (principal)
CPT/HCPCS: 77063; 77067

== ENCOUNTER 2025-05-04 09:31 | Outpatient (OUT) | payer OTHER, SELFPAY ==
--- OUTSIDE RECORDS SUMMARY | 2023-01-15 04:15 | XMS_ITS | Continuity of Care Document ---
Demographics Address [address] [place] [address] Home Phone Preferred Language en Marital Status Unknown Druze Affiliation Unknown Race Unknown Additional Race(s) Other Race Ethnic Group or Author Organization [facility] Address [address] [place] [address] Phone Care Team Providers Care Payloader Operator Name Role Phone Jasmina Washburn DDS Unavailable Unavailable Allergies, Adverse Reactions, Alerts Substance Reaction Status Criticality No Known Allergies Active No Inform ation Procedures Procedure Date Oral Hygiene Instruction Limited Oral Eval Bitewig-single Film Panoramic Film Advance Directives Directive Yes / No Effective Date File Name No Information Encounters Encounter Description Practice Location Reason(s) For Visit Diagnoses Date Provider Providers Copied on Encounter [facility], [address] [place] [address], [id number], tel:[phone] Dental Clinic ER (chief complaint) Encounter for screening for dental disorders Wu Freedman. . tel:[phone] Family History Family Member Type Diagnosis Age At Onset No Information Payers Payer name Insurance type Covered democrat ID Joselito galarza(s) Maris Molina Medicaid [employer] [id number] D Medicaid [facility] [id number] Social History Type Description Quantity Date Captured [...]
--- OUTSIDE RECORDS SUMMARY | 2025-03-07 11:00 | XMS_ITS ---
Author Organization [facility] Address [address] [place] [address] Care Team Providers Care Hearing Screener Name Role Phone Dr. Nate Queen Primary Care Provider [phone] Lary Tobar Unavailable Unavailable REASON FOR VISIT PERIO EVAL Encounters Encounter Location Date Provider Diagnosis [facility] [address] [place] [address] 03/07/2025 Lary Hansen Plan Of Treatment Next Appt Details Provider Name:Emily Rasmussen, 05/24/2025 02:55:00 PM, [address] [place], [address], Provider Name:Lary Hansen, 09/06/2025 03:00:00 PM, [address], [place], [address], Progress Notes * IVETTE SANDRODOB:1965 (59 yo F)Acc No.[id number]:03/07/2025 Patient: SANDRO CASTILLO Provider: Ginna Hansen :1965 A ge:59 Y S ex:Female Date:03/07/2025 [address] [place] [place], [place] Pcp:Dr. Nate Queen Subjective: * Chief Complaints: * 1 . PERIO EVAL. * Medical History: Objective: * Vitals: Assessment: Plan: * Treatment: * Images: * Electronic signature of Jonatan Hansen on 05/04/2025 at 09:33 AM EDT Sign off status: Pending * Provider: Ginna Hansen Date: 0 03/07/2025 Generated for Nicholas Taveras/Neetu on: 1 09:33 AM EDT
--- OUTSIDE RECORDS SUMMARY | 2025-04-25 09:15 | XMS_ITS ---
Author Organization [employer] [facility] vices Address [address] [place], [place] [id number] Care Team Providers Care Synchro Assembler Name Role Phone Austin Kent Primary Care Provider Allergies Allergen (clinical drug ingredient) Drug/Non Drug Allergy documented on EMR Reaction Allergy Type Onset Date Status Black Pepper-Turmeric sneezing Drug Allergy Active REASON FOR VISIT Wellness Medications Medication SIG (Take, Route, Frequency, Duration) Notes Start Date End Date Status Aspirin 81 81 MG 1 tablet Orally Once a day Active Taltz 80 MG/ML as directed Subcutaneous Active Diclofenac Sodium 1 % as directed Externally twice a day; Duration: 14 days 4 grams an application, 02/12/2025 Active Levothyroxine Sodium 75 MCG 1 tablet in the morning on an empty stomach Orally Once a day; Duration: 90 days Active AMDL Ultra 2 w/Device USE TO CHECK BLOOD SUGAR ONCE A DAY; Duration: 90 Active metFORMIN HCl 500 MG 1 tablet with a meal Orally twice a day; Duration: 90 days cancel the 1000mg dose change to 500 Active Farxiga 10 MG 1 tablet Orally Once a day; Duration: 90 days 03/12/2025 Active Albuterol Sulfate HFA 108 (90 Base) MCG/ACT 1 puff as needed Inhalation every 4 hrs; Duration: 30 days 03/06/2025 Not-Taking Sulfamethoxazole-Trim ethoprim 800-160 MG Oral; Duration: 5 Days Not-Taking Fluconazole 200 MG 1 tablet Orally daily; Duration: 10 days 02/23/2025 Not-Taking Ondansetron 4 MG Oral; Duration: 3 Days Active Carvedilol 25 MG 1 tablet with food Oral Twice a day; Duration: 90 days please cancel rx for 3.125mg Active OneTouch Delica Plus [id number] - USE TO CHECK BLOOD SUGAR ONCE A DAY; Duration: 90 Active OneTouch Ultra - USE TO CHECK BLOOD SUGAR ONCE A DAY; Duration: 90 Active Omeprazole 20 MG TAKE 1 CAPSULE BY MOUTH EVERY DAY 30 MINUTES BEFORE MORNING MEAL; Duration: 90 Active Triamcinolone Acetonide 0.1 % 1 application to affected area Externally Twice a day; Duration: 14 04/20/2023 Active Trulicity 3 MG/0.5ML as directed Subcutaneous once weekly; Duration: 90 days dose increase from 1.5 to 3 08/01/2024 Active Social History Sex Assigned At : Social History Observation Description Sex Assigned At Female Vital Signs Temperature 97.3 degrees Fahrenheit 04/25/20 25 Weight 179.3 lbs 04/25/2025 Height 62.00 in 04/25/2025 BMI 32.79 kg/m2 04/25/2025 Blood pressure systolic 115 mm Hg 04/25/20 25 Blood pressure diastolic 75 mm Hg 025 Heart Rate 76 /min 04/25/2025 Respiratory Rate 14 /min 04/25/2025 Oximetry 97 % 04/25/2025 Weight-kg 81.33 kg 04/25/2025 Height-cm 157.48 cm 04/25/2025 Ashley Avalos 04/25/2025 01 :24:27 PM EDT > Encounters Encounter Location Date Provider Diagnosis Main [address] [place], [place] [id number] 04/25/2025 Austin Kent [facility] Z00.00 ; Encounter for screening for HIV Z11.4 ; Encounter for screening for cardiovascular disorders Z13.6 ; Dietary counseling Z71.3 ; Exercise counseling Z71.82 ; Hypothyroid E03.9 and Type 2 diabetes mellitus without complication, unspecified whether fci insulin use E11.9 Assessments Encounter Date Diagnosis (ICD Code) Assessment Notes Treatment Notes Treatment Clinical Notes Section Notes 04/25/2025 Encounter for wellness examination in adult (ICD-10 - Z00.00) Pt is here for wellness today. Overall health is okay. I advised to get baseline tests and pt is agreeable for that. I advised regular exercise and eating a balanced diet with focus on eating less fried and fatty foods and eating more fresh fruits and vegetable in an attempt to achieve and maintain a healthy BMI and PVU labs up to date 04/25/2025 Encounter for screening for HIV (ICD-10 - Z11.4) 04/25/2025 Encounter for screening for cardiovascular disorders (ICD-10 - Z13.6) 04/25/2025 Dietary counseling (ICD-10 - Z71.3) 04/25/2025 Exercise counseling (ICD-10 - Z71.82) 04/25/2025 Hypothyroid (ICD-10 - E03.9) 04/25/2025 Type 2 diabetes mellitus without complication, unspecified whether fci insulin use (ICD-10 - E11.9) Plan Of Treatment Medication Medication Name Sig Start Date Stop Date Notes Levothyroxine Sodium 75 MCG 1 tablet in the morning on an empty stomach Orally Once a day; Duration: 90 days Trulicity 3 MG/0.5ML as directed Subcuta neous once weekly; Duration: 90 days 08/01/2024 Treatment Notes Assessment Notes Encounter for wellness examination in ad ult Pt is here for wellness today. Overall health is okay. I advised to get baseline tests and pt is agreeable for that. I advised regular exercise and eating a balanced diet with focus on eating less fried and fatty foods and eating more fresh fruits and vegetable in an attempt to achieve and maintain a healthy BMI and PVU labs up to date Next Appt Details Follow Up: 4 Weeks, Reason: DM Provider Name:Austin Kent, 05/23/2025 01:00:00 PM, [address] [place], [place], [id number], Progress Notes * Dayana SEVERINO DDOB: 3 (59 yo F)Acc No.[id number]:04/25/2025 Medical Note Patient: Dayana CASTILLO D Provider: Venkat Kent :1965 A ge:59 Y S ex:Female Date:04/25/2025 Address:[address], [id number] Subjective: * Chief Complaints: * W ellness * HPI: I nterim History: 59 year old patient is here today for wellness visit. Last wellness visit was : not sure Today patient denies any new complaints. Health has been good recently. Blood pressure today is: 115/75 Diabetic screening: known Diabetic has had recent A1c Cholesterol screening: lipid Colon cancer screening: colkonocopy last year Cervical cancer screening: PAP done here at [facility] in January breast cancer screening: mammogram scheduled next week Depression screening: PHQ-9 Smoking status: no Alcohol use: occasionally drinks Drug use including marijuana: denies Dental screenin month until next appt Vision screening: had appointment last week Diet: cypriot food, meat, rice, beans Exercise: sometimes. * ROS: N egative except mentioned above in the HPI. * Medical History: * Surgical History: A blation EGD 11/08/24 * Hospitalization/Major Diagno stic Procedure: C hest pressure and back pain 10/12/2022[facility] 01/2025 * Family History: F ather: . M other: alive. P aternal Grand Father: . P aternal Grand Mother: . M aternal Grand Father: . M aternal Grand Mother: .?6 brother(s) , 2 sister(s) . . * Medications: T akingAspirin 81 81 MG Tablet Delayed Release 1 tablet Orally Once a day Diclofenac Sodium 1 % Gel as directed Externally twice a day 4 grams an application,Taltz 80 MG/ML Solution Auto-injector as directed Subcutaneous AMDL Ultra 2 w/Device Kit USE TO CHECK BLOOD SUGAR ONCE A DAY Triamcinolone Acetonide 0.1 % Cream 1 application to affected area Externally Twice a day Omeprazole 20 MG Capsule Delayed Release TAKE 1 CAPSULE BY MOUTH EVERY DAY 30 MINUTES BEFORE MORNING MEAL OneTouch Ultra - Strip USE TO CHECK BLOOD SUGAR ONCE A DAY AMDL DelNovast Laboratories Plus Vitifi26O - Miscellaneous USE TO CHECK BLOOD SUGAR ONCE A DAY Carvedilol 25 MG Tablet 1 tablet with food Oral Twice a day , Notes to Pharmacist: please cancel rx for 3.125mgLevothyroxine Sodium 75 MCG Tablet TAKE 1/2 TABLET BY MOUTH ONCE EVERY MORNING ON AN EMPTY STOMACH Ondansetron 4 MG Tablet Disintegrating Oral metFORMIN HCl 500 MG Tablet 1 tablet with a meal Orally twice a day cancel the 1000mg dose change to 500Farxiga 10 MG Tablet 1 tablet Orally Once a day Trulicity 3 MG/0.5ML Solution Auto-injector as directed Subcutaneous once weekly dose increase from 1.5 to 3Taking Aspirin 81 81 MG Tablet Delayed Release 1 tablet Orally Once a day Taking Diclofenac Sodium 1 % Gel as directed Externally twice a day 4 grams an application,Taking Taltz 80 MG/ML Solution Auto-injector as directed Subcutaneous Taking AMDL Ultra 2 w/Device Kit USE TO CHECK BLOOD SUGAR ONCE A DAY Taking Triamcinolone Acetonide 0.1 % Cream 1 application to affected area Externally Twice a day Taking Omeprazole 20 MG Capsule Delayed Release TAKE 1 CAPSULE BY MOUTH EVERY DAY 30 MINUTES BEFORE MORNING MEAL Taking AMDL Ultra - Strip USE TO CHECK BLOOD SUGAR ONCE A DAY Taking AMDL Delica Plus Adeyct79A - Miscellaneous USE TO CHECK BLOOD SUGAR ONCE A DAY Taking Carvedilol 25 MG Tablet 1 tablet with food Oral Twice a day , Notes to Pharmacist: please cancel rx for 3.125mgTaking Levothyroxine Sodium 75 MCG Tablet TAKE 1/2 TABLET BY MOUTH ONCE EVERY MORNING ON AN EMPTY STOMACH Taking Ondansetron 4 MG Tablet Disintegrating Oral Taking metFORMIN HCl 500 MG Tablet 1 tablet with a meal Orally twice a day cancel the 1000mg dose change to 500Taking Farxiga 10 MG Tablet 1 tablet Orally Once a day Taking Trulicity 3 MG/0.5ML Solution Auto-injector as directed Subcutaneous once weekly dose increase from 1.5 to 3Not-Taking/PRNSulfamethoxazole-Trimethoprim 800-160 MG Tablet Oral Albuterol Sulfate HFA 108 (90 Base) MCG/ACT Aerosol Solution 1 puff as needed Inhalation every 4 hrs Fluconazole 200 MG Tablet 1 tablet Orally daily Medication List reviewed and reconciled with the patientNot-Taking/PRN Sulfamethoxazole-Trimethoprim 800-160 MG Tablet Oral Not-Taking/PRN Albuterol Sulfate HFA 108 (90 Base) MCG/ACT Aerosol Solution 1 puff as needed Inhalation every 4 hrs Not-Taking/PRN Fluconazole 200 MG Tablet 1 tablet Orally daily Medication List reviewed and reconciled with the patient * Allergies: B lack Pepper-Turmeric: sneezing - Allergyno[Allergies Verified] Objective: * Vitals: T emp:97.3F, Wt:179.3lbs, Ht: 62.00 in, BMI:32.79Index, BP:115/75mm Hg, HR:76/min, RR:14/min, Pain scale:01-10, Oxygen sat %:97%, Wt-k.33 kg, Ht-cm: 157.48 cm, Body Surface Area: 1.88. Ashley Avalos 04/25/2025 01:24:27 PM EDT >. * Examination: C QM Exceptions: Currently taking Aspirin: A spirin Use: N o G eneral Examination: General appearance: a lert, pleasant, well-nourished and in no acute distress. Head: n ormocephalic, atraumatic. Eyes: p upils equal, round, reactive to light and accommodation. Ears: a uditory canal clear, tympanic membrane intact and clear bilaterally. Nose: n lupe patent , no lesions , sinuses nontender bilaterally. Oral cavity: t ongue is midline , palate normal , mucosa moist. Skin: s kin is warm and dry, with no rashes, good skin turgor and normal hair distribution. Heart: r egular rate and rhythm without murmurs, gallops, clicks or rubs. Lungs: c lear to auscultation bilaterally, with good air movement and no rales, rhonchi or wheezes. Extremities: n ormal extremity with no clubbing, cyanosis or edema , full range of motion. Psych: a lert and oriented x 3 , cooperative with exam , maintains good eye contact , normal affect / mood , speech is clear and coherent. ? Assessment: * Assessment: 1. E ncounter for wellness examination in adult - Z00.00 (Primary) 2 . E ncounter for screening for HIV - Z11.4 3 . E ncounter for screening for cardiovascular disorders - Z13.6 4 . D ietary counseling - Z71.3 5 . E xercise counseling - Z71.82 6 . H ypothyroid - E03.9 7 . T ype 2 diabetes mellitus without complication, unspecified whether fci insulin use - E11.9 Plan: * Treatment: 2. H ypothyroid Refill Levothyroxine Sodium Tablet, 75 MCG, 1 tablet in the morning on an empty stomach, Orally, Once a day, 90 days, 90 Tablet, Refills 0. 3. T ype 2 diabetes mellitus without complication, unspecified whether fci insulin use Refill Trulicity Solution Auto-injector, 3 MG/0.5ML, as directed, Subcutaneous, once weekly dose increase from 1.5 to 3, 90 days, 12, Refills 0. * Procedure Codes: 3 078F HTN DIAST BP < [id number] HTN SYST BP < 130 * Preventive Medicine: Counseling: C are goal follow-up plan: Nutrition/Dietary Counseling provided?Yes BMI management provided Y es * Follow Up: 4 Weeks (Reason: DM) * Billing Information: * Visit Code: 55403 [facility] Compre Prev Med Ree/M Est Pt 40-64. * Procedure Codes: 3078F HTN DIAST BP < 80. 3074F HTN SYST BP < 130. * Sign off status: Completed true * Provider: Venkat Kent Date: Generated for Nicholas mane/Dewey/Neetu on: 09:33 AM EDT History and Physical Notes * Examination Category Sub-Category Detail Notes Category Not es General Examination General appearance: alert, p leasant, well-nourished and in no acute distress Head: normocephalic, atrau matic Eyes: pupils equal, round, reactive to light and accommodation Ears: auditory canal clear , tympanic membrane intact and clear bilaterally Nose: nares patent , no le sions , sinuses nontender bilaterally Heart: regular rate and rhy thm without murmurs, gallops, clicks or rubs Lungs: clear to auscultatio n bilaterally, with good air movement and no rales, rhonchi or wheezes Skin: skin is warm and dry , with no rashes, good skin turgor and normal hair distribution Extremities: normal extremity wit h no clubbing, cyanosis or edema , full range of motion Psych: alert and oriented x 3 , cooperative with exam , maintains good eye contact , normal affect / mood , speech is clear and coherent Oral cavity: tongue is midline , palate normal , mucosa moist CQM Exceptions Currently taking Aspirin: Aspirin Use:: No
--- OUTSIDE RECORDS SUMMARY | 2025-04-27 12:00 | XMS_ITS ---
Author Organization [employer] Address [address] [place] [address] Care Team Providers Care Eye Glass Frame Polisher Name Role Phone Dr. Nate Queen Primary Care Provider [phone] Rula Dejuan Zaldivar Emily Unavailable [phone] REASON FOR VISIT FILLINGS Encounters Encounter Location Date Provider Diagnosis [facility] [address] [place] [address] 04/27/2025 Emily Zaldivar Plan Of Treatment Next Appt Details Provider Name:Emily Dejuan Zaldivar, 05/24/2025 02:55:00 PM, [address] [place], [address], Provider Name:Lary Hansen, 09/06/2025 03:00:00 PM, [address] [place], [place], [address], Progress Notes * SANDRO STEELEDOB:1965 (59 yo F)Acc No.[id number]:04/27/2025 Patient: SANDRO CASTILLO Provider: Oma ZALDIVAR DDS :1965 A ge:59 Y S ex:Female Date:04/27/2025 Address[address] [id number] Pcp:Dr. Nate Queen Subjective: * Chief Complaints: * 1 . FILLINGS. * Medical History: Objective: * Vitals: Assessment: Plan: * Treatment: * Images: * Electronic signature of Danisha Zaldivar DDS on 05/04/2025 at 09:34 AM EDT Sign off status: Pending * Provider: Oma ZALDIVAR DDS Date: 1 Generated for Nicholas mane/Dewey/Neetu on: 1 09:34 AM EDT
--- OUTSIDE RECORDS SUMMARY | 2025-05-04 09:34 | XMS_ITS | Encounter Summary ---
Author Organization [facility] Address [address] [place] [address] Care Team Providers Care Finishing Area Operator Name Role Phone Unavailable Primary Care Provider Unavailabl e Encounter Details Date Type Department Care Team (Late st Contact Info) Description 10/22/2023 Abstract [facility] [address] [place] [address] Provider, Marlyn Salter DDS [address] [place], [place] [id number] Social History Tobacco Use Types Packs/Day Years [...]
--- OUTSIDE RECORDS SUMMARY | 2025-05-04 09:34 | XMS_ITS | Encounter Summary ---
Author Organization [facility] Address [address] [place] [address] Care Team Providers Care Solar Lab Technician Name Role Phone Unavailable Primary Care Provider Unavailabl e Encounter Details Date Type Department Care Team (Late st Contact Info) Description 06/06/2024 [facility] [address] [place] [address] Provider, Marlyn Salter DDS [address] [place], [place] [id number] Social History Tobacco Use Types Packs/Day Years [...]
--- OUTSIDE RECORDS SUMMARY | 2025-05-04 09:34 | XMS_ITS | Clinical Summary ---
Demographics Address [address] [place] [address] Mobile Phone Preferred Language en Marital Status Single Moravian Affiliation Unknown Race Other Race Ethnic Group or Author Organization [facility] Address [address] [facility] [place] [address] Care Team Providers Care Type Soldering Machine Tender Name Role Phone Unavailable Primary Care Provider Unavailabl e Source Comments The following information is NOT included in Care Everywhere downloads:Psychiatric notes, ECG results, Cardiac Rehab notes, Pulmonary Function notes, data from [employer] (includes but not limited toPregnancy data,audiograms, eye exams, pre-surgical evaluation notes, well-child exam data).[facility] Immunizations Immunization Administration Dates Next Due Influenza, injectable, quadr ivalent, preservative free (FAC=991) 05/26/2021 Tdap (PDZ=367) 07/16/2020 Social History Tobacco Use Types Packs/Day [...] Billing Address Personal/Family Self 1965 [address] [place] [address] [place] [employer] * Guarantor: Dayana Severino Account Type Relation to Patient Date of Phone Billing Address Personal/Family Self 1965 [address] [place] [address] * Guarantor: Dayana Severino Account Type Relation to Patient Date of Phone Billing Address Dental Clinic Self 1965 [address] [place] [address] [facility]
--- OUTSIDE RECORDS SUMMARY | 2025-05-04 09:34 | XMS_ITS | Patient Health Record ---
Demographics Address [address] [place] [address] Mobile Preferred Language en Marital Status unmarried Zoroastrian Affiliation Unknown Race Unknown Additional Race(s) Other Race Ethnic Group or [facility] Address [address] [place] [address] Care Team Providers Care Construction Project Coordinator Name Role Phone Dr. Nate Queen Primary Care Provider [phone] Lary Tobar Unavailable Unavailable Emily Chavez Unavailable Reason For Referral No Information Encounters Encounter Location Date Provider Diagnosis [facility] [address] [place] [address] 04/26/2025 Emily Rasmussen [facility] [place] [address] 02/06/2025 Emily Rasmussen Encounter for dental examination and cleaning with abnormal findings Z01.21 ; Other dental procedure status Z98.818 ; Disturbances in tooth eruption K00.6 and Dental caries on pit and fissure surface penetrating into dentin K02.52 [facility] [address] [place] [address] 03/07/2025 Lary Hansen Assessments Encounter Date Diagnosis (ICD Code) Assessment Notes Treatment Notes Treatment Clinical Notes Section Notes 02/06/2025 Encounter for dental examination and cleaning with abnormal findings (ICD-10 - Z01.21) 02/06/2025 Other dental procedure status (ICD-10 - Z98.818) 02/06/2025 Disturbances in tooth eruption (ICD-10 - K00.6) 02/06/2025 Dental caries on pit and fissure surface penetrating into dentin (ICD-10 - K02.52) Plan Of Treatment Next Appt Details Provider Name:Emily Rasmussen, 05/24/2025 02:55:00 PM, [address] [place], [address], Provider Name:Lary Hansen, 09/06/2025 03:00:00 PM, [address], [place], [address], Insurance Providers Payer Name Payer Address Payer Phone Subscriber Number Group Number Insured Name Patient Relationship to Insured Coverage Start Date Coverage End Date [place] [facility] [address] [place] [address] [phone] [id number] SANDRO STEELE Self - patient is the insured [address] [facility] Ar[employer] [address] [place] [address] [id number] SANDRO STEELE Self - patient is the insured 3
--- OUTSIDE RECORDS SUMMARY | 2025-05-04 09:34 | XMS_ITS | Encounter Summary ---
Author Organization [facility] Address [address] [place] [address] Care Team Providers Care Bilingual Speech Language Pathologist Name Role Phone Unavailable Primary Care Provider Unavailabl e Encounter Details Date Type Department Care Team (Late st Contact Info) Description 09/15/2023 Abstract [facility] [address] [place], [place] [id number] Delbert Parr DDS [address] [place] [address] Social History Tobacco Use Types Packs/Day Years [...]
--- OUTSIDE RECORDS SUMMARY | 2025-05-04 09:35 | XMS_ITS | Clinical Summary ---
Author Organization [facility] Address [address] [place] [address] Care Team Providers Care Needle Leader Name Role Phone Cassidy Escamilla MD Primary Care Provider [phone] Allergies No known active allergies Medications SITagliptin phosphate (Januvia) 25 mg tablet Take 25 mg by mouth in the morning. Active DULoxetine (Cymbalta) [address] capsule Take 20 mg by mouth in the morning. Do not crush or chew. Active adalimumab (Humira,CF, Pen Uzvn-Dh-Kvpc HS) 80 mg/0.8 mL-40 mg/0.4 mL pen injector kit pen-injector starter kit Inject 80 mg (contents of one pen) under the skin on day 1. Inject 40 mg (contents of one pen) under the skin on day 8 and day 22. 09/09/19 24 Active levothyroxine (Synthroid, Levoxyl) 75 mcg tablet TAKE 1/2 A TABLET BY MOUTH IN THE MORNING ON AN EMPTY STOMACH Active metFORMIN (Glucophage) 500 mg tablet TAKE 1 TABLET BY MOUTH EVERY DAY WITH A MEAL FOR 90 DAYS Active Trulicity 1.5 mg/0.5 mL pen injector as directed Subcutaneous once weekly for 28 days 08/01/19 25 Active omeprazole (PriLOSEC) [address] capsule TAKE 1 CAPSULE BY MOUTH EVERY DAY 30 MINUTES BEFORE MORNING MEAL 10/01/19 25 Active Taltz Autoinjector 80 mg/mL auto-injector as directed Subcutaneous 06/06/20 24 Active Farxiga 10 mg Take 1 tablet by mouth in the morning. 03/13/20 25 Active carvedilol (Coreg) 25 mg tabletIndicatio ns:Essential hypertension Take 1 tablet (25 mg) by mouth with breakfast and with evening meal. 60 tablet 11 20 25 2025 Active aspirin 81 mg EC tabletIndicatio ns:Precordial pain Take 1 tablet (81 mg) by mouth in the morning. 30 tablet 04/06/202025 Active carvedilol (Coreg) 12.5 mg tabletIndicatio ns:Essential hypertension TAKE 1 TABLET (12.5 MG) BY MOUTH WITH BREAKFAST AND EVENING MEAL 180 tablet 3 12/20/192024 Discontinued Active Problems Problem Noted Date Diagnosed Date Precordial pain 04/06/2025 Essential hypertension 04/06/2025 Chronic GERD 10/17/2024 Pure hypercholesterolemia 10/11/2024 Positive colorectal cancer screening using Colog uard test 03/31/2024 Benign hypertensive heart disease without heart failure 12/09/2022 Mixed hyperlipidemia 12/09/2022 Diabetes mellitus type II, non insulin dependent 12/09/2022 Fatty liver 12/09/2022 Encounters Date Type Department Care Team Description 04/06/2025 1:40 PM EDT Office Visit [address] [address] Jolene Ruby MD Precordial pain (Primary Dx); Essential hypertension; Pure hypercholesterolemia; Fatty liver; Diabetes mellitus type II, non insulin dependent (CMS/HCC) from Last 3 Months Family History Relation Name Status Comments Brother Father Mother Alive Sister Social History Tobacco Use Types Packs/Day Years Used Date Smoking Tobacco: Never Smokeless Tobacco: Former Tobacco Cessation:Counseling Given: Not Answered Alcohol Use Standard Drinks/Week Comments Yes 1 (1 standard drink = 0.6 oz pur e alcohol) [place] Safety & Environment Answer Date Rec orded Fear of Current or Ex-Partner Not on file Emotionally Abused Not on file 09/16/2023 Physically Abused Not on file 09/16/2023 Sexually Abused Not on file 09/16/2023 Physically or Sexually Abused Not on file Comments Unknown Sex and Gender Information Value Date Recorded Sex Assigned at Female 04/02/2025 1:56 PM EDT Legal Sex Female 10:51 AM EDT Gender Identity Female 04/02/2025 1:56 PM EDT Sexual Orientation Heterosexual or Straight 02/2025 1:56 PM EDT Last Filed Vital Signs Vital Sign Reading Time Taken Comments Blood Pressure 144/95 04/06/2025 1:59 PM EDT Pulse 84 04/06/2025 1:59 PM EDT Temperature - - Respiratory Rate - - Oxygen Saturation 97% 04/06/2025 1:59 PM EDT Inhaled Oxygen Concentration - - Weight 78.9 kg (174 lb) 04/06/2025 1:59 PM EDT Height 157.5 cm (5' 2 ) 04/06/2025 1:59 PM EDT Body Mass Index 31.83 04/06/2025 1:59 PM EDT Plan of Treatment Upcoming Encounters Date Type Department Care Team (Late st Contact Info) Description 06/11/2025 2:20 PM EST Office Visit [facility] [address] [place] [address] Jolene Ruby MD [address] [place] [address] Health Maintenance Due Date Last Done Comments CT Colonography 1965 Diabetes: Hemoglobin A1C 1965 FIT-DNA 1965 FOBT 1965 Sigmoidoscopy 1965 Diabetes: Retinopathy Screening 1973 Depression Screening 1975 Diabetes: Urine Protein Screening 1982 Pneumococcal Vaccine: Pediat rics (0 to 5 Years) and At-Risk Patients (6 to 64 Years) (1 of 2 - PCV) 1982 Pap Smear 1984 Cervical Cancer Screening 1993 HPV/Cotest 1993 Mammogram 2003 Zoster Vaccines (1 of 2) 2013 FIT 11/03/2024 11/04/2023 COVID-19 Vaccine ( - 2023-2 5 season) 2025 Influenza Vaccine (#1) 2025 05/26/2021 Adult Tetanus 07/16/2030 07/16/2020 Colonoscopy 03/31/2034 03/31/2024 Colorectal Cancer Screening 03/31/2034 HIB Vaccines Aged Out No longer eligi ble based on patient's age to complete this topic HPV Vaccines Aged Out No longer eligi ble based on patient's age to complete this topic IPV Vaccines Aged Out No longer eligi ble based on patient's age to complete this topic Meningococcal B Vaccine Aged Out No l onger eligible based on patient's age to complete this topic Meningococcal Vaccine Aged Out No shannon gilson eligible based on patient's age to complete this topic Rotavirus Vaccines Aged Out No longer eligible based on patient's age to complete this topic Procedures Procedure Name Priority Date/Time Associated Diagnosis Comments ECG 12-LEAD Routine 04/06/2025 2:58 PM EDT Precordial pain from Last 3 Months Results * ECG 12 lead (04/06/2025 2:58 PM EDT) Narrative Jolene Ruby MD - 04/06/2025 2:58 PM EDT normal sinus rhythm, heart rate 74 bpm, left axis deviation, voltage criteria for LVH, no significant change in comparison to EKG from 03/03/2024 Jolene Ruby MD ECG ORDERABLES Final Result from Last 3 Months Insurance * Guarantor: Dayana Severino Account Type Relation to Patient Date of Phone Billing Address Personal/Family Self 1965 [address] [place] [address] [employer] Care Teams Needle Leader Relationship Specialty Start Date End Date Cassidy Escamilla MD [address] [place] [id number] PCP - General Nurse Practitioner 03/15/24
--- OUTSIDE RECORDS SUMMARY | 2025-05-04 09:35 | XMS_ITS | Encounter Summary ---
Author Organization [facility] Address [address] [facility] [place] [address] Care Team Providers Care Work From Home Name Role Phone Unavailable Primary Care Provider Unavailabl e Encounter Details Date Type Department Care Team (Late st Contact Info) Description 12/14/2023 Abstract [facility] [address] [place], [place] [phone] Maribel Connors DDS [address] [facility] [address] Social History Tobacco Use Types Packs/Day Years [...]
--- OUTSIDE RECORDS SUMMARY | 2025-05-04 09:35 | XMS_ITS | Clinical Summary ---
Author Organization [facility] Address [address] [facility], [address] [place] [address] Care Team Providers Care Special Equipment Technician Name Role Phone Austin Kent Primary Care Provider [phone] Allergies Active Allergy Reactions Criticality Noted Date [...] GFR 15-59) 10/25/2025 10/25/2024, 01/13/2021 Fecal-DNA (Cologuard): Chavies ge risk 11/03/2026 11/04/2023, 10/02/2020 DTaP/Tdap/Td vaccine [...] - 145 mmol/L 10/25/2024 1:00 PM EDT [facility] Potassium 4.1 3.7 - 5.3 mmol/L 10/25/2024 1:00 PM EDT [facility] Chloride 99 98 - 107 mmol/L 10/25/2024 1:00 PM EDT [facility] CO2 28 20 - 31 mmol/L 10/25/2024 1:00 PM EDT [facility] Anion Gap 10 9 - 16 mmol/L 10/25/2024 1:00 PM EDT [facility] Glucose 150(H) 74 - 99 mg/dL 10/25/2024 1:00 PM EDT [facility] BUN 11 8 - 23 mg/dL 10/25/2024 1:00 PM EDT [facility] Creatinine 0.7 0.50 - 0.90 mg/dL 10/25/2024 1:00 PM EDT [facility] Est, Glom Filt Rate >90 >60 mL/min/1.7 3m2 10/25/2024 1:00 PM EDT [facility] Comment: These results are not intended [...] 9 - 20 10/25/2024 1:00 PM EDT [facility] Calcium 10.0 8.6 - 10.4 mg/dL 10/25/2024 1:00 PM EDT [facility] Blood BLOOD SPECIMEN / Unknown 10/25/2024 1:00 PM EDT 10/25/2024 1:01 PM EDT us Candy Scott HOUSEKEEPING ASSOCIATE - SUPERVISOR PLASTERING CHEMISTRY ORDERABLES Final Result [facility] [address] [phone] * Colonoscopy (03/31/2024 9:52 AM EDT) Narrative Epic, User - 03/31/2024 9:52 AM EDT No dictation Jhonatan Suarez MD ENDOSCOPY ORDERABLES Final R esult from Last 3 Months or Most Recently Relevant to Health Maintenance Insurance * Guarantor: Dayana Severino Account Type Relation to Patient Date of Phone Billing Address Personal/Family Self 1965 [address] [place] [address] [facility] MEDICAID Care Teams Special Equipment Technician Relationship Specialty Start Date End Date Austin Kent PA [address] [place] [address] PCP - General Physician Kelp Cutter 09/25/24
--- OUTSIDE RECORDS SUMMARY | 2025-05-04 09:35 | XMS_ITS | Encounter Summary ---
Author Organization [facility] Address [address] [place] [address] Care Team Providers Care Gauge Maker Apprentice Name Role Phone Unavailable Primary Care Provider Unavailabl e Encounter Details Date Type Department Care Team (Late st Contact Info) Description 12/21/2023 Abstract [facility] [address] [place], [place] [id number] Pasquale Rosa, MAGO [address] [place] [address] Social History Tobacco Use Types Packs/Day Years [...]
--- OUTSIDE RECORDS SUMMARY | 2025-05-04 09:35 | XMS_ITS | Clinical Summary ---
Author Organization [employer] [facility] Address [id number] [address] [place] [address] Care Team Providers Care Telesales Agent Name Role Phone Kvng Carter MD Primary [...] Billing Address Personal/Family Self 1965 [address] [place] [address] [facility] MEDICAID Care Teams Telesales Agent Relationship Specialty Start Date End Date Kvng Carter MD [address] [place] [address] PCP - General Internal Medicine 06/28/20
--- OUTSIDE RECORDS SUMMARY | 2025-05-04 09:35 | XMS_ITS | Encounter Summary ---
Author Organization [facility] Address [address] [facility] [place] [address] Care Team Providers Care Data Governance Analyst Name Role Phone Unavailable Primary Care Provider Unavailabl e Encounter Details Date Type Department Care Team (Late st Contact Info) Description 12/21/2023 Abstract [facility] [address] [place], [place] [id number] Colleen Bro DDS [address] [facility] [place] [address] Social History Tobacco Use Types Packs/Day Years [...]
--- OUTSIDE RECORDS SUMMARY | 2025-05-04 09:39 | XMS_ITS | CCD ---
Author Organization [facility] Care Team Providers Care Leading Firefighter Name Role Phone Unavailable Primary Care Provider Unavailabl e KEV, MORALES ALIE Primary Care Physician [phone] Siobhan Meyers Unavailable Cassandra Dumont Unavailable DR [...] KEV, MORALES Primary Care Unavailabl e Andi WIND TURBINE ELECTRICAL ENGINEER, Cassidy Unavailable Unavailable Primary Care Provider UnavailAustin Laurent Primary Care Provider [phone] AUSTIN KENT Primary Care Unavailable CANDY SCHMIDT [...] (19 sources) Black Pepper-Turmeric Drug Allergy 11-18-2023 [facility] Healthcare Work Phone: Medications Current [...] day 8 and day 22. 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) drug therapy] 05-22-2024 Episodic Other connective [...] Range Facility Office Visiton 04-06-2025 Follow-up visit [id number] Dayana Steele 1965 F Date Provider Department Center 04/06/2025 [id number] RUBY JOSE Guillory [facility] Family History Family Status - Relation Status Age at Mother Alive Father Sister Brother Level of Service:40596 [place] OFFICE/OUTPATIENT ESTABLISHED MOD MDM 30 MIN Reason for Visit and Comments: Hypertension [248334] Hyperlipidemia [182] Follow-up [911247] - 6 month routine follow up Normal [facility] No Panel Informationon 03-13 ESTELLA Darden 03/13/2025 11:02 AM L Inj/Asp: R subacromial bursa on 03/13/2025 10:54 AM Indications: pain Details: 21 G needle, posterior approach Medications: 40 mg methylPREDNISolone acetate 40 MG/ML; 1 mL bupivacaine PF 0.5 % Outcome: tolerated well, no immediate complications Utilizing aseptic technique with universal precautions . Pt given injection Right Shoulder SA space (Code 39233 RT) Procedure, treatment alternatives, risks and benefits explained, specific risks discussed. Consent was given by the patient. Patient was prepped and draped in the usual sterile fashion. [facility] Echograph XR Shoulder - right 2 Viewso n 03-13-2025 Imaging Result: Right Shoulder AP and Scap Y No acute fracture or dislocation Bone Structures clavicle and scapula and humeral head appear normal alignment Glenohumeral joint space maintained, moderate degenerative changes at AC joint. Soft tissues and limited visualized lung balderrama unremarkable Impression: Normal shoulder with no acute bony abnormalities. [facility] Radiology Study observation (narrative) [facility] Glucose,Whole Bloodon 2024 Glucose [Mass/Vol] 189 mg/dL High 65-99 [facility] Surgical Pathology Reporton 11-08-2024 Surgical Pathology Report (NOTE) Path Number: [id number] -- Diagnosis -- A. Stomach antrum, biopsy: [...] no organisms apparent on JANNA. Processing Lab: [address] [address] Interpretation Performed at [address] [address] SURGICAL PATHOLOGY CONSULTATION Patient Name: DAYANA STEELE [facility] Rec: [id number] [facility] ANATOMIC PATHOLOGY [address] [facility] [place] [phone] [facility] 36on 11-06-2024 36 Regarding lab result s [...] would fax results to ESTELLA Ochoa. Normal [facility] Basic Metabolic Panelon 04-0 Anion gap [Moles/Vol] 10 mmol/L 9 - 16 mmol/L [facility] [employer] Calcium [Mass/Vol] 10 mg/dL 8.6 - 10. 4 mg/dL [facility] Chloride [Moles/Vol] 99 mmol/L 98 - 10 7 mmol/L [facility] CO2 [Moles/Vol] 28 mmol/L 20 - 31 mmol/L [facility] Creatinine [Mass/Vol] 0.7 mg/dL 0.50 - 0.90 mg/dL [facility] Est, Glom Filt Rate - PINF [facility] Comment on above: These results are [...] 150 mg/dL High 74 - 99 mg/dL [facility] Interpretation and review of laboratory results Abnormal [facility] Potassium [Moles/Vol] 4.1 mmol/L 3.7 - 5.3 mmol/L [facility] Sodium [Moles/Vol] 137 mmol/L 136 - 145 mmol/L [facility] Urea nitrogen [Mass/Vol] 11 mg/dL 8 - 23 mg/dL [facility] Urea nitrogen/Creatinine [Mass ratio] 16 mg/mg 9 - 20 [facility] Basic Metabolic Profon 10-25 Anion gap [Moles/Vol] 10 mmol/L Normal 9-16 [facility] Comment on above: Performed By: #### C DP, BMP #### [facility] [address] [place] [address] Lab Intern: Flash Jaramillo MD BUN/CRE Ratio 16 Normal 9-20 [facility] Comment on above: Performed By: #### C DP, BMP #### [facility] [address] [place] [address] Lab Intern: Flash Jaramillo MD Calcium [Mass/Vol] 10.0 mg/dL Normal 8.6-10.4 [facility] Comment on above: Performed By: #### C DP, BMP #### [facility] [address] [place] [address] Lab Intern: Flash Jaramillo MD Chloride [Moles/Vol] 99 mmol/L Normal 98-107 [facility] Comment on above: Performed By: #### C DP, BMP #### [facility] [address] [place] [address] Lab Intern: Flash Jaramillo MD CO2 [Moles/Vol] 28 mmol/L Normal 20- [facility] Comment on above: Performed By: #### C DP, BMP #### [facility] [address] [place] [address] Lab Intern: Flash Jaramillo MD Creatinine [Mass/Vol] 0.7 mg/dL Normal 0.50-0.90 [facility] Comment on above: Performed By: #### C DP, BMP #### [facility] [address] [place] [address] Lab Intern: Flash Jaramillo MD GFR/1.73 sq M.predicted among non-blacks MDRD (S/P/Bld) [Vol rate/Area] mL/min/{1.73_m2} Normal >60 [facility] Comment on above: Result Comment: These [...] Performed By: #### C DP, BMP #### [address] [place] [address] Lab Intern: Flash Jaramillo MD Glucose [Mass/Vol] 150 mg/dL High 74-99 [facility] Comment on above: Performed By: #### C DP, BMP #### [address] [place] [address] Lab Intern: Flash Jaramillo MD Potassium [Moles/Vol] 4.1 mmol/L Normal 3.7-5.3 [facility] Comment on above: Performed By: #### C DP, BMP #### [address] [place] [address] Lab Intern: Flash Jaramillo MD Sodium [Moles/Vol] 137 mmol/L Normal 136-145 [facility] Comment on above: Performed By: #### C DP, BMP #### [facility] [address] [place] [address] Lab Intern: Flash Jaramillo MD Urea nitrogen [Mass/Vol] 11 mg/dL Normal 8-23 [facility] Comment on above: Performed By: #### C EM, BMP #### [facility] [address] [place] [address] Lab Intern: Flash Jaramillo MD CBC with Auto Differentialon 10-25-2024 Basophils (Bld) [#/Vol] 0.07 10*3/uL [facility] Basophils/100 WBC (Bld) 1 % 0 - 2 % [facility] Eosinophils (Bld) [#/Vol] 0.15 10*3/uL [facility] Eosinophils/100 WBC (Bld) 1 % 1 - 4 % [facility] Erythrocyte distribution width (RBC) [Ratio] 12.8 % 11.8 - 14.4 % [facility] Hematocrit (Bld) [Volume fraction] 42.6 % 36.3 - 47.1 % [facility] Hemoglobin (Bld) [Mass/Vol] 14.5 g/dL 11.9 - 15.1 g/dL [facility] Immature granulocytes (Bld) [#/Vol] 0.09 10*3/uL [facility] Immature granulocytes/100 WBC (Bld) 1 % High 0 [facility] Interpretation and review of laboratory results Abnormal [facility] Lymphocytes/100 WBC (Bld) 13 % Low 24 - 43 % [facility] Lymphocytes/100 WBC (Bld) 1.47 % [facility] MCH (RBC) [Entitic mass] 30.8 pg 25.2 - 33.5 pg [facility] MCHC (RBC) [Mass/Vol] 34 g/dL 28.4 - 34.8 g/dL [facility] MCV (RBC) [Entitic vol] 90.4 fL 82.6 - 102.9 fL [facility] Monocytes/100 WBC (Bld) 7 % 3 - 12 % [facility] Monocytes/100 WBC (Bld) 0.78 % [facility] Neutrophils/100 WBC (Bld) 77 % High 36 - 65 % [facility] Nucleated RBC/100 WBC (Bld) [Ratio] 0 % 0.0 per 100 WBC [facility] Platelet mean volume (Bld) [Entitic vol] 10.9 fL 8.1 - 13.5 fL [facility] Platelets (Bld) [#/Vol] 344 10*3/uL [facility] RBC (Bld) [#/Vol] 4.71 10*6/uL 3.95 - 5.1 1 m/uL [facility] Segmented neutrophils/100 WBC (Bld) 9.02 % High [facility] WBC other (Bld) [#/Vol] 11.6 High [facility] CBC with Diffon 10-25-2024 Abs. Basophil 0.07 k/uL Normal 0.00-0.20 [facility] Comment on above: Performed By: #### C DP, BMP #### [facility] [address] [place] [address] [address] [id number] Lab Intern: Flash Jaramillo MD Abs.Imm.Granulocyte 0.09 k/uL Normal 0.00-0.30 [facility] Comment on above: Performed By: #### C DP, BMP #### [address] [place], [place] [id number] Lab Intern: Flash Jaramillo MD Abs.Neutrophil (Seg) 9.02 k/uL High 1.50-8.10 [facility] Comment on above: Performed By: #### C DP, BMP #### [facility] [address] [place] [address] Dr[address] [place], [place] [id number] Lab Intern: Flash Jaramillo MD Basophils/100 WBC (Bld) 1 % Normal 0-2 [facility] Comment on above: Performed By: #### C DP, BMP #### [address] [place] [address] Lab Intern: Flash Jaramillo MD Eosinophils (Bld) [#/Vol] 0.15 10*3/uL Normal 0.00-0.44 [facility] Comment on above: Performed By: #### C DP, BMP #### [facility] [address] [place] [address] [place] [address] Lab Intern: Flash Jaramillo MD Eosinophils/100 WBC (Bld) 1 % Normal 1-4 [facility] Comment on above: Performed By: #### C DP, BMP #### [address] [place] [id number] Lab Intern: Flash Jaramillo MD Erythrocyte distribution width (RBC) [Ratio] 12.8 % Normal 11.8-14.4 [facility] Comment on above: Performed By: #### C DP, BMP #### [address] [place], [place] [address] Lab Intern: Flash Jaramillo MD Hematocrit (Bld) [Volume fraction] 42.6 % Normal 36.3-47.1 [facility] Comment on above: Performed By: #### C DP, BMP #### [address] [place] [address] Lab Intern: Flash Jaramillo MD Hemoglobin (Bld) [Mass/Vol] 14.5 g/dL Normal 11.9-15.1 [facility] Comment on above: Performed By: #### C DP, BMP #### [address] [place] [address] Lab Intern: Flash Jaramillo MD Immature granulocytes/100 WBC (Bld) 1 % High 0 [facility] Comment on above: Performed By: #### C DP, BMP #### [address] [place] [address] Lab Intern: Flash Jaramillo MD Lymphocytes (Bld) [#/Vol] 1.47 10*3/uL Normal 1.10-3.70 [facility] Comment on above: Performed By: #### C DP, BMP #### [address] [place], [place] [address]1783 Lab Intern: Flash Jaramillo MD Lymphocytes/100 WBC (Bld) 13 % Low 24-43 [facility] Comment on above: Performed By: #### C DP, BMP #### [address] [place], [place] [address] Lab Intern: Flash Jaramillo MD MCH (RBC) [Entitic mass] 30.8 pg Normal 25.2-33.5 [facility] Comment on above: Performed By: #### C DP, BMP #### [address] [place] [id number] Lab Intern: Flash Jaramillo MD MCHC (RBC) [Mass/Vol] 34.0 g/dL Normal 28.4-34.8 [facility] Comment on above: Performed By: #### C DP, BMP #### [address] [place], [place] [address] Lab Intern: Flash Jaramillo MD MCV (RBC) [Entitic vol] 90.4 fL Normal 82.6-102.9 [facility] Comment on above: Performed By: #### C DP, BMP #### [address] [place], [facility] Lab Intern: Flash Jaramillo MD Monocytes (Bld) [#/Vol] 0.78 10*3/uL Normal 0.10-1.20 [facility] Comment on above: Performed By: #### C DP, BMP #### [address] [place], [place] 9969383 Lab Intern: Flash Jaramillo MD Monocytes/100 WBC (Bld) 7 % Normal 3-12 [facility] Comment on above: Performed By: #### C DP, BMP #### [facility] [address] [place], [place] [id number] Lab Intern: Flash Jaramillo MD Neutrophil (Seg) 77 % High 36-65 [facility] Comment on above: Performed By: #### C DP, BMP #### [facility] [address] [place] [address] Lab Intern: Flash Jaramillo MD NRBC Automated 0.0 per 100 WBC Normal 0.0 [facility] Comment on above: Performed By: #### C DP, BMP #### [facility] [address] [place], [place] [id number] Lab Intern: Flash Jaramillo MD Platelet mean volume (Bld) [Entitic vol] 10.9 fL Normal 8.1-13.5 [facility] Comment on above: Performed By: #### C DP, BMP #### [address] [place], [place] 4555783 Lab Intern: Flash Jaramillo MD Platelets (Bld) [#/Vol] 344 10*3/uL Normal 138-453 [facility] Comment on above: Performed By: #### C DP, BMP #### [address] [place], [place] 7324183 Lab Intern: Flash Jaramillo MD RBC (Bld) [#/Vol] 4.71 10*6/uL Normal 3.95-5.11 [facility] Comment on above: Performed By: #### C DP, BMP #### [facility] [address] [place], [place] [address]83 Lab Intern: Flash Jaramillo MD WBC (Bld) [#/Vol] 11.6 10*3/uL High 3.5-11.3 [facility] Comment on above: Performed By: #### C DP, BMP #### [address] [place] [address] Lab Intern: Flash Jaramillo MD EKG 12 LeadOrdered By: Tez Roman on 10-17-2024 Atrial Rate 91 BPM [employer] Work Phone: P Walters 28 degrees [employer] Work Phone: P-R Interval 144 ms [employer] Work Phone: Q-T Interval 348 ms [employer] Work Phone: QRS Duration 86 ms [employer] Work Phone: QTc Calculation (Bazett) 428 ms [employer] Work Phone: R Walters -29 degrees [employer] Phone: T Walters 25 degrees [employer] Phone: Ventricular Rate 91 BPM [employer] Work Phone: [employer] Phone: EKG 12 Leadon 10-17-2024 Normal sinus rhythm Moderate voltage criteria for LVH, may be normal variant ( R in aVL , [employer] product ) Borderline ECG No previous ECGs available Confirmed by KVNG ROMAN ([id number]) on 10/17/2024 5:44:19 PM [facility] RADIOLOGY Kvng Roman MD - 10/17/2024 Normal sinus rhythm Moderate voltage criteria for LVH, may be normal variant ( R in aVL , [place] product ) Borderline ECG No previous ECGs available Confirmed by KVNG ROMAN ([id number]) on 10/17/2024 5:44:19 PM [employer] Office Visiton 10-11-2024 Follow-up visit [id number] Dayana Steele 1965 F Date Provider Department Center 10/11/2024 [id number]-LVEWALSILAS RUBY CARD [facility] Family History Problem Relation Age of Onset No Known Problems Mother No Known Problems Father No Known Problems Sister No Known Problems Brother Family Status - Relation Status Age at Mother Father Sister Brother Level of Service:24652 [place] OFFICE/OUTPATIENT ESTABLISHED LOW MDM 20 MIN Reason for Visit and Comments: Palpitations [180207] - Had thyroid function in Apr 2024. Denies chest pain and SOB. Says her main problem is indigestion when she eats. Normal [facility] No Panel Informationon 05-01 Dayana Woodard NP [...] and draped in the usual sterile fashion. [facility] MR SHOULDER LT WO CONTon MR [...] Ma MD on 04/06/2024 4:12 PM Normal [facility] Glucose, Whole Bloodon 03-31 Glucose [Mass/Vol] 212 mg/dL High 74-100 [facility] Surgical Pathology Reporton 03-31-2024 Surgical Pathology Report (NOTE) Path Number: [id number] -- Diagnosis -- A. SIGMOID COLON POLYP, [...] A, B. Microscopic examination performed. Processing Lab: [address] [address] Interpretation Performed at [address] [address] SURGICAL PATHOLOGY CONSULTATION Patient Name: DAYANA STEELE [facility] Rec: [id number] [facility] ANATOMIC [facility]OLOGY [address] [facility] [place], [place] [address] Normal [facility] Progress Noteson 12-21-2023 Payroll Accountant Authentication Interface Message Text ----- Thursday, December 21, 2023 at 11:49:45 AM ----- ----- Provider: [id number] - Resident Ibrahima -- Clinic: [place] ----- COMPOSITE LATTER-DAY Patient is scheduled for Amish on tooth #9 surface F5. Reviewed Medical History. Pt exhibited the following conditions: No significant medical history Patient is ready for treatment. Topical Benzocaine gel applied at the injection site for 2 minutes. Administered 1 carpules of Lidocaine, 2% with Epinephrine 1:100,000,. isolation achieved. Decay/existing latter day removed, cavity prepared. Selectively etched enamel with 37% phosphoric acid, rinsed, and blot dried. OptiBond hills applied and light-cured. Condensed packable composite shade A3 in light cured increments using Retraction cord with hemostatic gel Finished with finishing burs, checked occlusion, verified proximal contacts and latter day was polished. Rinsed and suctioned intraorally, advised patient to not eat until local anesthesia wears off. POST OPERATIVE Periapical (single) RADIOGRAPH TAKEN. Next Visit: Restorative ----- Signed on Thursday, December 21, 2023 at 3:48:00 PM ----- ----- Provider: [id number] - Chelsea Sun DDS -- Clinic: [place] ----- Normal [facility] [employer] [facility] Progress Noteson 12-14-2023 Payroll Accountant Authentication Interface Message Text ----- Thursday, December 14, 2023 at 12:33:43 PM ----- ----- Provider: [id number] Resident Avi -- Clinic: [place] ----- COMPOSITE LATTER-DAY Patient is scheduled for Amish on tooth #18 surface DO. Reviewed Medical History. Pt exhibited the following conditions: No significant medical history Patient is ready for treatment. Topical Benzocaine gel applied at the injection site for 2 minutes. Administered 1 carpules of Lidocaine, 2% with Epinephrine 1:100,000,. Cotton roll isolation achieved. Decay/existing latter day removed, cavity prepared. Selectively etched enamel with 37% phosphoric acid, rinsed, and blot dried. Xeno IV hills applied and light-cured. Condensed packable composite shade A2 in light cured increments using Aut[employer]. Finished with finishing burs, checked occlusion, verified proximal contacts and latter day was polished. Rinsed and suctioned intraorally, advised patient to not eat until local anesthesia wears off. POST OPERATIVE Periapical (single) RADIOGRAPH TAKEN. Next Visit: Mercedes ----- Signed on Thursday, December 14, 2023 at 2:29:42 PM ----- ----- Provider: [id number] - Pasquale Martin DDS -- Clinic: [place] ----- Normal [facility] [employer] [facility] Progress Noteson 10-22-2023 Payroll Accountant Authentication Interface Message Text ----- Sunday, October 22, 2023 at 12:00:23 PM ----- ----- Provider: [id number] - Amina Mac Hygienist -- Clinic: [place] ----- [facility], Pt is ready for tx. Pt [...] RECALL/ 6months. Amina Gann RDH Normal [facility] [employer] [facility] Progress Noteson 09-15-2023 Payroll Accountant Authentication Interface Message Text ----- Friday, September 15, 2023 at 11:18:51 AM ----- ----- Provider: [id number] - Delbert Bejarano Resident -- Clinic: [place] ----- INITIAL/COMPREHENSIVE EXAM Patient presents for an [...] ----- Provider: Mark Martin DDS -- Clinic: [place] ----- Normal [facility] [employer] COVID/FLU RT-PCRon SARS-CoV-2 (COVID-19) RNA RIDGE+probe Ql (Unsp spec) Negative [employer] Other COVID/FLU RT-PCR Negative [employer] Other CBC AUTO DIFFon 10-13-2022 BASO # 0.1 103/ul Normal 0.0-0.1 [facility] Comment on above: Performed By: #### P OCGLUC #### [facility] [address] [address] [address] Gibson Jin Basophils/100 WBC (Bld) 1.0 % Normal 0.2-2.0 [facility] Comment on above: Performed By: #### P OCGLUC #### [facility] [address] [address] [address] Gibson Jin EO # 0.2 103/ul Normal 0.0-0.7 [facility] Comment on above: Performed By: #### P OCGLUC #### [facility] [address] [address] [address] Gibson Jin Eosinophils/100 WBC (Bld) 3.9 % Normal 0.9-7.0 [facility] Comment on above: Performed By: #### P OCGLUC #### [facility] [address] [address] [address] Gibson Jin Erythrocyte distribution width (RBC) [Ratio] 12.4 % Normal 11.0-15.0 [facility] Comment on above: Performed By: #### P OCGLUC #### [facility] [address] [address] [address] Gibson Jin Hematocrit (Bld) [Volume fraction] 43.4 % Normal 36.0-48.0 [facility] Comment on above: Performed By: #### P OCGLUC #### [facility] [address] [address] [address] Gibson Jin Hemoglobin (Bld) [Mass/Vol] 14.7 g/dL Normal 12.0-16.0 [facility] Comment on above: Performed By: #### P OCGLUC #### [facility] [address] [address] [address] Gibson Jin IG # 0.09 10e3/ul Critically high 0.00-0.03 [facility] Comment on above: Performed By: #### P OCGLUC #### [facility] [address] [address] [address] Gibson Jin IG % 1.5 % Critically high 0.0-0.5 [facility] Comment on above: Performed By: #### P OCGLUC #### [facility] [address] [place] [address] Dr. Gibson Jin LYMPH # 1.2 103/ul Normal 1.2-3.8 [facility] Comment on above: Performed By: #### P OCGLUC #### [facility] [address] [place] [address] Dr. Gibson Jin Lymphocytes/100 WBC (Bld) 19.4 % Critically low 20.5-60.0 [facility] Comment on above: Performed By: #### P OCGLUC #### [facility] [address] [place] [address] Dr. Gibson Jin MANUAL DIFF REQ NO Normal [facility] Comment on above: Performed By: #### P OCGLUC #### [facility] [address] [place] [address] [address] Gibson Jin MCH (RBC) [Entitic mass] 30.2 pg Normal 26.7-34.0 [facility] Comment on above: Performed By: #### P OCGLUC #### [facility] [address] [place] [address] [address] Gibson Jin MCHC (RBC) [Mass/Vol] 33.9 g/dL Normal 29.9-35.2 [facility] Comment on above: Performed By: #### P OCGLUC #### [facility] [address] [place] [address] [address] Gibson Jin MCV (RBC) [Entitic vol] 89.1 fL Normal 81.0-99.0 [facility] Comment on above: Performed By: #### P OCGLUC #### [facility] [address] [place] [address] [address] Gibson Jin MONO # 0.4 103/ul Normal 0.3-0.8 [facility] Comment on above: Performed By: #### P OCGLUC #### [facility] [address] [place] [address] Dr. Gibson Jin Monocytes/100 WBC (Bld) 6.9 % Normal 1.7-12.0 [facility] Comment on above: Performed By: #### P OCGLUC #### [facility] [address] [place] [address] Dr. Gibson Jin NEUT # 4.1 103/ul Normal 1.4-6.5 [facility] Comment on above: Performed By: #### P OCGLUC #### [facility] [address] [place] [address] Dr. Gibson Jin Neutrophils/100 WBC (Bld) 67.3 % Normal 43.0-75.0 [facility] Comment on above: Performed By: #### P OCGLUC #### [facility] [address] [place] [address] Dr. Gibson Jin Platelet mean volume (Bld) [Entitic vol] 10.3 fL Normal 9.5-13.5 [facility] Comment on above: Performed By: #### P OCGLUC #### [facility] [address] [place] [address] Dr. Gibson Jin PLT 273 103/ul Normal 150-450 [facility] Comment on above: Performed By: #### P OCGLUC #### [facility] [address] [place] [address] Dr. Gibson Jin RBC 4.87 106/ul Normal 4.20-5.40 [facility] Comment on above: Performed By: #### P OCGLUC #### [facility] [address] [place] [id number] [address] Gibson Jin WBC 6.1 103/ul Normal 4.0-11.0 [facility] Comment on above: Performed By: #### P OCGLUC #### [facility] [id number] Gibson Jin ECHOCARDIO M/2D COMPLETEon 0 10-13-2022 ECHOCARDIO M/2D COMPLETE Patient: DAYANA STEELE Exam Date: 10/13/2022 : 1965 Gender:F Ordering : FELIBERTO TROTTER . Admission #: [id number] Family : Order #: [id number] CLICK HERE TO VIEW EXAM ECHOCARDIOGRAM REPORT [...] M.D. on 10/13/2022 at 15:43 Normal [facility] GLYCOHEMOGLOBIN A1Con 2022 ADA RECOMMENDATION SEE BELOW Normal [facility] Comment on above: Result Comment: ADA RECOMMENDED LIMIT 4.0 - 6.0 ADA THERAPEUTIC TARGET < 7.0 ACTION SUGGESTED > 7.0 Performed By: #### A 1C #### [facility] [address] [place] [address] Dr. Gibson Jin Glucose [Mass/Vol] 197 mg/dL Normal [facility] Comment on above: Performed By: #### A 1C #### [facility] [address] [place] [address] Dr. Gibson Jin HbA1c (Bld) [Mass fraction] 8.5 % Critically high 4.5-6.2 [facility] Comment on above: Performed By: #### A 1C #### [facility] [address] [place], [place] [address] Dr. Gibson Jin LIPID PROFILEon 10-13-2022 CHOL-HDL RATIO NORM SEE BELOW Normal [facility] Comment on above: Result Comment: 3.3 - 4.4 LOW RISK 4.4 - 7.1 AVERAGE RISK 7.1 - 11.0 MODERATE RISK >11.0 HIGH RISK Performed By: #### T SH, CMP, LIPID #### [facility] [address] [place], [place] [address] Dr. Gibson Jin Cholesterol [Mass/Vol] 167 mg/dL Normal <=200 [facility] Comment on above: Performed By: #### T SH, CMP, LIPID #### [facility] [address] [address] [address] Gibson Jin Cholesterol in HDL [Mass/Vol] 45 mg/dL Normal 40-60 [facility] Comment on above: Performed By: #### T SH, CMP, LIPID #### [facility] [address] [address] [address] Gibson Jin Cholesterol in LDL [Mass/Vol] 93.4 mg/dL Normal [facility] Comment on above: Performed By: #### T SH, CMP, LIPID #### [facility] [address] [place], [place] [address] Dr. Gibson Jin Cholesterol.total/Chol esterol in HDL [Mass ratio] 3.7 {ratio} Normal [facility] Comment on above: Performed By: #### T SH, CMP, LIPID #### [facility] [address] [place], [place] [address] Dr. Gibson Jin HDL NORMAL > or = 60 mg/dl - LO W CARDIOVASCULAR RISK <40 mg/dl - HIGH CARDIOVASCULAR RISK Normal [facility] Comment on above: Performed By: #### T SH, CMP, LIPID #### [facility] [id number] Gibson Jin LDL CALC NORMAL SEE BELOW Normal [facility] Comment on above: Result Comment: <100 mg/dl OPTIMAL 100 - 129 mg/dl NEAR OR ABOVE OPTIMAL 130 - 159 mg/dl BORDERLINE HIGH 160 - 189 mg/dl HIGH >190 mg/dl VERY HIGH Performed By: #### T SH, CMP, LIPID #### [facility] [address] [place], [place] [address] Dr. Gibson Jin Triglyceride [Mass/Vol] 143 mg/dL Normal <=150 [facility] Comment on above: Performed By: #### T JENNIFER, CMP, LIPID #### [facility] [address] [place], [place] [address] Dr. Gibson Jin VLDL CALC 28.6 mg/dL Normal [facility] Comment on above: Performed By: #### T JENNIFER, CMP, LIPID #### [facility] [address] [place], [place] [address] Dr. Gibson Jin NM STRESS/REST MULTIon 10-13 NM STRESS/REST MULTI Patient: DAYANA STEELE Exam Date: 10/13/2022 : 1965 Gender:F Ordering : TERESSA OLIVEROS [facility] Admission #: [id number] Family : FELIBERTO TROTTER . Order #: [id number] CLICK HERE TO VIEW EXAM RADIOLOGY REPORT [...] Guerrero M.D. on 10/13/2022 at 15:00 Normal [facility] POINT OF CARE GLUCOSEon 09-24 Glucose [Mass/Vol] 372 mg/dL Critically high 74-106 [facility] Comment on above: Performed By: #### P OCGLUC #### [facility] [address] [place] [address] Dr. Gibson Jin Glucose [Mass/Vol] 131 mg/dL Critically high 74-106 [facility] Comment on above: Performed By: #### P OCGLUC #### [facility] [address] [place] [address] Dr. Gibson Jin PROF 14(COMP METB)on 023 Albumin [Mass/Vol] 3.3 g/dL Critically low 3.4-5.0 Th [facility] Comment on above: Performed By: #### T SH, CMP, LIPID #### [facility] [address] [place] [address] Dr. Gibson Jin Albumin/Globulin [Mass ratio] 0.9 {ratio} Normal [facility] Comment on above: Performed By: #### T SH, CMP, LIPID #### [facility] [address] [place] [address] Dr. Gibson Jin ALP [Catalytic activity/Vol] 123 U/L Critically high 46-116 [facility] Comment on above: Performed By: #### T SH, CMP, LIPID #### [facility] [address] [place] [address] Dr. Gibson Jin ALT [Catalytic activity/Vol] 223 U/L Critically high 14-59 [facility] Comment on above: Performed By: #### T SH, CMP, LIPID #### [facility] [address] [place] [address] Dr. Gibson Jin Anion gap [Moles/Vol] 10.0 mmol/L Normal [facility] Comment on above: Performed By: #### T SH, CMP, LIPID #### [facility] [address] [address] [address] Gibson Jin AST [Catalytic activity/Vol] 113 U/L Critically high 15-37 [facility] Comment on above: Performed By: #### T SH, CMP, LIPID #### [facility] [address] [place] [address] Dr. Gibson Jin Bilirubin [Mass/Vol] 0.7 mg/dL Normal 0.2-1.0 [facility] Comment on above: Performed By: #### T JENNIFER, CMP, LIPID #### [facility] [address] [place] [address] Dr. Gibson Jin Calcium [Mass/Vol] 9.1 mg/dL Normal 8.5-10.1 [facility] Comment on above: Performed By: #### T JENNIFER, CMP, LIPID #### [facility] [address] [place] [address] Dr. Gibson Jin Chloride [Moles/Vol] 102 mmol/L Normal 98-107 The [facility] Comment on above: Performed By: #### T JENNIFER, CMP, LIPID #### [facility] [address] [place] [address] Dr. Gibson Jin CO2 [Moles/Vol] 30.0 mmol/L Normal 21.0-32.0 The [facility] Comment on above: Performed By: #### T SH, CMP, LIPID #### [facility] [address] [place] [address] Dr. Gibson Jin Creatinine [Mass/Vol] 0.73 mg/dL Normal 0.55-1.02 [facility] Comment on above: Performed By: #### T SH, CMP, LIPID #### [facility] [address] [place] [address] Dr. Gibson Jin EGFR-AF GHANAIAN >60 Normal >=60 [facility] Comment on above: Performed By: #### T SH, CMP, LIPID #### [facility] [address] [address] [address] Gibson Jin EGFR-NON AF GHANAIAN >60 Normal >=60 [facility] Comment on above: Performed By: #### T SH, CMP, LIPID #### [facility] [address] [address] [address] Gibson Jin Globulin (S) [Mass/Vol] 3.5 g/dL Normal [facility] Comment on above: Performed By: #### T SH, CMP, LIPID #### [facility] [address] [address] [address] Gibson Jin Glucose [Mass/Vol] 165 mg/dL Critically high 74-106 [facility] Comment on above: Performed By: #### T SH, CMP, LIPID #### [facility] [address] [place] [address] Dr. Gibson Jin Potassium [Moles/Vol] 4.0 mmol/L Normal 3.5-5.1 [facility] Comment on above: Performed By: #### T SH, CMP, LIPID #### [facility] [address] [address] [address] Gibson Jin Protein [Mass/Vol] 6.8 g/dL Normal 6.4-8.2 The [facility] Comment on above: Performed By: #### T SH, CMP, LIPID #### [facility] [address] [place] [address] Dr. Gibson Jin Sodium [Moles/Vol] 138 mmol/L Normal 136-145 The [facility] Comment on above: Performed By: #### T SH, CMP, LIPID #### [facility] [address] [address] [address] Gibson Jin Urea nitrogen [Mass/Vol] 14.0 mg/dL Normal 7.0-18.0 [facility] Comment on above: Performed By: #### T SH, CMP, LIPID #### [facility] [address] [place] [address] Dr. Gibson Jin Urea nitrogen/Creatinine [Mass ratio] 19.2 mg/mg Normal [facility] Comment on above: Performed By: #### T SH, CMP, LIPID #### [facility] [address] [address] [address] Gibson Jin TSHon 10-13-2022 TSH 3.011 uIU/mL Normal 0.358-3.740 [facility] [place] [facility] Comment on above: Performed By: #### T SH, CMP, LIPID #### [facility] [address] [address] [address] Gibson Jin US SINGLE QUAD RT [...] MATTHEW GUERRERO Date: 2022-10-13 13:22 Normal [facility] CBC AUTO DIFFon 10-12-2022 BASO # 0.1 103/ul Normal 0.0-0.1 [facility] Comment on above: Performed By: #### C BC #### [facility] [address] [place] [address] Dr. Gibson Jin Basophils/100 WBC (Bld) 1.0 % Normal 0.2-2.0 [facility] Comment on above: Performed By: #### C BC #### [facility] [address] [place] [address] Dr. Gibson Jin EO # 0.2 103/ul Normal 0.0-0.7 [facility] Comment on above: Performed By: #### C BC #### [facility] [address] [place] [address] Dr. Gibson Jin Eosinophils/100 WBC (Bld) 2.2 % Normal 0.9-7.0 [facility] Comment on above: Performed By: #### C BC #### [facility] [address] [place] [address] Dr. Gibson Jin Erythrocyte distribution width (RBC) [Ratio] 12.1 % Normal 11.0-15.0 [facility] Comment on above: Performed By: #### C BC #### [facility] [address] [place] [address] Dr. Gibson Jin Hematocrit (Bld) [Volume fraction] 43.1 % Normal 36.0-48.0 [facility] Comment on above: Performed By: #### C BC #### [facility] [address] [place] [address] Dr. Gibson Jin Hemoglobin (Bld) [Mass/Vol] 15.1 g/dL Normal 12.0-16.0 [facility] Comment on above: Performed By: #### C BC #### [facility] [address] [place] [address] Dr. Gibson Jin IG # 0.06 10e3/ul Critically high 0.00-0.03 [facility] Comment on above: Performed By: #### C BC #### [facility] [address] [place] [address] Dr. Gibson Jin IG % 0.8 % Critically high 0.0-0.5 [facility] Comment on above: Performed By: #### C BC #### [facility] [address] [place] [address] Dr. Gibson Jin LYMPH # 1.5 103/ul Normal 1.2-3.8 [facility] Comment on above: Performed By: #### C BC #### [facility] [address] [place] [address] Dr. Gibson Jin Lymphocytes/100 WBC (Bld) 20.1 % Critically low 20.5-60.0 [facility] Comment on above: Performed By: #### C BC #### [facility] [address] [place] [address] Dr. Gibson Jin MANUAL DIFF REQ NO Normal [facility] Comment on above: Performed By: #### C BC #### [facility] [address] [place] [address] Dr. Gibson Jin MCH (RBC) [Entitic mass] 30.6 pg Normal 26.7-34.0 [facility] Comment on above: Performed By: #### C BC #### [facility] [address] [place] [address] Dr. Gibson Jin MCHC (RBC) [Mass/Vol] 35.0 g/dL Normal 29.9-35.2 [facility] Comment on above: Performed By: #### C BC #### [facility] [address] [place] [address] Dr. Gibson Jin MCV (RBC) [Entitic vol] 87.2 fL Normal 81.0-99.0 [facility] Comment on above: Performed By: #### C BC #### [facility] [address] [place] [address] Dr. Gibson Jin MONO # 0.5 103/ul Normal 0.3-0.8 [facility] Comment on above: Performed By: #### C BC #### [facility] [address] [place] [address] Dr. Gibson Jin Monocytes/100 WBC (Bld) 6.5 % Normal 1.7-12.0 [facility] Comment on above: Performed By: #### C BC #### [facility] [address] [place] [address] Dr. Gibson Jin NEUT # 5.0 103/ul Normal 1.4-6.5 [facility] Comment on above: Performed By: #### C BC #### [facility] [address] [place] [address] Dr. Gibson Jin Neutrophils/100 WBC (Bld) 69.4 % Normal 43.0-75.0 [facility] Comment on above: Performed By: #### C BC #### [facility] [address] [place] [address] Dr. Gibson Jin Platelet mean volume (Bld) [Entitic vol] 10.6 fL Normal 9.5-13.5 [facility] Comment on above: Performed By: #### C BC #### [facility] [address] [place] [address] Dr. Gibson Jin PLT 281 103/ul Normal 150-450 [facility] Comment on above: Performed By: #### C BC #### [facility] [address] [place] [address] Dr. Gibson Jin RBC 4.94 106/ul Normal 4.20-5.40 [facility] Comment on above: Performed By: #### C BC #### [facility] [address] [place] [address] Dr. Gibson Jin WBC 7.3 103/ul Normal 4.0-11.0 [facility] Comment on above: Performed By: #### C BC #### [facility] [address] [place] [address] Dr. Gibson Jin [facility]24 SARS-CoV-2 (COVID-19) RNA RIDGE+probe Ql [...] for this test is supported by the Biological Chemist of Health and Human Service's declaration that [...] OCGLUC #### [facility] [address] [address] [address] Gibson Jin D-DIMERon 10-12-2022 D-DIMER 0.34 mg/L FEU Normal <=0.59 [facility] [place] [facility] Comment on above: Performed By: #### P OCGLUC #### [facility] [address] [place] [address] Dr. Gibson Jin D-DIMER COMMENTS SEE BELOW Normal [facility] Comment on above: Result Comment: Incr [...] P OCGLUC #### [facility] [address] [place] [address] Dr. Gibson Jin DRUG SCREEN RAPID (URINE)on 10-12-2022 AMP Negative Normal NEGATIVE [facility] Comment on above: Performed By: #### P OCGLUC #### [facility] [address] [place] [address] Dr. Gibson Jin BAR Negative Normal NEGATIVE [facility] Comment on above: Performed By: #### P OCGLUC #### [facility] [address] [place] [address] Dr. Gibson Jin BUP Negative Normal NEGATIVE [facility] Comment on above: Performed By: #### P OCGLUC #### [facility] [address] [address] [address] Gibson Jin BZO Negative Normal NEGATIVE [facility] Comment on above: Performed By: #### P OCGLUC #### [facility] [address] [place] [address] Dr. Gibson Jin CANDACE Negative Normal NEGATIVE [facility] Comment on above: Performed By: #### P OCGLUC #### [facility] [address] [place] [address] Dr. Gibson Jin CUT-OFFS SEE BELOW Normal [facility] Comment on above: Result Comment: AMP [...] P OCGLUC #### [facility] [address] [place] [address] Dr. Gibson Jni DRUG CUT HEADER DRUG CLASS TEST SYSTEM CUT-OFF CONCENTRATIONS ARE FOLLOWS: Normal [facility] Comment on above: Performed By: #### P OCGLUC #### [facility] [address] [place] [address] Dr. Gibson Jin mAMP Negative Normal NEGATIVE [facility] Comment on above: Performed By: #### P OCGLUC #### [facility] [address] [place] [address] Dr. Gibson Jin MTD Negative Normal NEGATIVE [facility] Comment on above: Performed By: #### P OCGLUC #### [facility] [address] [place] [address] Dr. Gibson Jin OPI Positive Abnormal NEGATIVE [facility] Comment on above: Performed By: #### P OCGLUC #### [facility] [address] [place] [address] Dr. Gibson Jin OXY Negative Normal NEGATIVE [facility] Comment on above: Performed By: #### P OCGLUC #### [facility] [address] [place] [address] Dr. Gibson Jin PCP Negative Normal NEGATIVE [facility] Comment on above: Performed By: #### P OCGLUC #### [facility] [address] [address] [address] Gibson Jin PPX Negative Normal NEGATIVE [facility] Comment on above: Performed By: #### P OCGLUC #### [facility] [address] [address] [address] Gibson Jin TCA Negative Normal NEGATIVE [facility] Comment on above: Performed By: #### P OCGLUC #### [facility] [address] [address] [address] Gibson Jin THC Negative Normal NEGATIVE [facility] Comment on above: Performed By: #### P OCGLUC #### [facility] [address] [place] [address] Dr. Gibson Jin POINT OF CARE GLUCOSEon 09-24 Glucose [Mass/Vol] 220 mg/dL Critically high 74-106 [facility] Comment on above: Performed By: #### P OCGLUC #### [facility] [address] [place] [address] Dr. Gibson Jin Glucose [Mass/Vol] 298 mg/dL Critically high 74-106 [facility] Comment on above: Performed By: #### P OCGLUC #### [facility] [address] [place] [address] Dr. Gibson Jin PROF 14(COMP METB)on 023 Albumin [Mass/Vol] 3.7 g/dL Normal 3.4-5.0 [facility] Comment on above: Performed By: #### C KARLIE HSTROPN #### [facility] [address] [place] [address] Dr. Gibson Jin Albumin/Globulin [Mass ratio] 1.0 {ratio} Normal [facility] Comment on above: Performed By: #### C KARLIE HSTROPN #### [facility] [address] [place] [address] Dr. Gibson Jin ALP [Catalytic activity/Vol] 175 U/L Critically high 46-116 [facility] Comment on above: Performed By: #### C KARLIE HSTROPN #### [facility] [address] [place] [address] Dr. Gibson Jin ALT [Catalytic activity/Vol] 167 U/L Critically high 14-59 [facility] Comment on above: Performed By: #### C KARLIE, HSTROPN #### [facility] [address] [address] [address] Gibson Jin Anion gap [Moles/Vol] 10.6 mmol/L Normal Th [facility] Comment on above: Performed By: #### C KARLIE, HSTROPN #### [facility] [address] [address] [address] Gibson Jin AST [Catalytic activity/Vol] 49 U/L Critically high 15-37 [facility] Comment on above: Performed By: #### C KARLIE, HSTROPN #### [facility] [address] [place] [address] Dr. Gibson Jin Bilirubin [Mass/Vol] 0.4 mg/dL Normal 0.2-1.0 [facility] Comment on above: Performed By: #### C KARLIE, HSTROPN #### [facility] [address] [place] [address] Dr. Gibson Jin Calcium [Mass/Vol] 9.1 mg/dL Normal 8.5-10.1 [facility] Comment on above: Performed By: #### C KARLIE, HSTROPN #### [facility] [address] [place] [address] Dr. Gibson Jin Chloride [Moles/Vol] 102 mmol/L Normal 98-107 [facility] Comment on above: Performed By: #### C KARLIE, HSTROPN #### [facility] [address] [place] [address] Dr. Gibson Jin CO2 [Moles/Vol] 26.8 mmol/L Normal 21.0-32.0 [facility] Comment on above: Performed By: #### C KARLIE, HSTROPN #### [facility] [address] [place] [address] Dr. Gibson Jin Creatinine [Mass/Vol] 0.90 mg/dL Normal 0.55-1.02 [facility] Comment on above: Performed By: #### C KARLIE, HSTROPN #### [facility] [address] [address] [address] Gibson Jin EGFR-AF GHANAIAN >60 Normal >=60 [facility] Comment on above: Performed By: #### C MP, HSTROPN #### [facility] [address] [address] [address] Gibson Jin EGFR-NON AF GHANAIAN >60 Normal >=60 [facility] Comment on above: Performed By: #### C MP, HSTROPN #### [facility] [address] [address] [address] Gibson Jin Globulin (S) [Mass/Vol] 3.6 g/dL Normal [facility] Comment on above: Performed By: #### C MP, HSTROPN #### [facility] [address] [address] [address] Gibson Jin Glucose [Mass/Vol] 288 mg/dL Critically high 74-106 [facility] Comment on above: Performed By: #### C MP, HSTROPN #### [facility] [address] [address] [address] Gibson Jin Potassium [Moles/Vol] 3.4 mmol/L Critically low 3.5-5.1 [facility] Comment on above: Performed By: #### C MP, HSTROPN #### [facility] [address] [address] [address] Gibson Jin Protein [Mass/Vol] 7.3 g/dL Normal 6.4-8.2 [facility] Comment on above: Performed By: #### C MP, HSTROPN #### [facility] [address] [address] [address] Gibson Jin Sodium [Moles/Vol] 136 mmol/L Normal 136-145 [facility] Comment on above: Performed By: #### C MP, HSTROPN #### [facility] [address] [address] [address] Gibson Jin Urea nitrogen [Mass/Vol] 13.0 mg/dL Normal 7.0-18.0 [facility] Comment on above: Performed By: #### C MP, HSTROPN #### [facility] [address] [address] [address] Gibson Jin Urea nitrogen/Creatinine [Mass ratio] 14.4 mg/mg Normal [facility] Comment on above: Performed By: #### C MP, HSTROPN #### [facility] [address] [address] [address] Gibson Jin TROPONIN, HIGH SENSITIVITYon 10-12-2022 HSTROP <4.0 Normal 4.0-51.3 [facility] Comment on above: Result Comment: CUT- OFF POINTS HAVE BEEN ESTABLISHED BASED ON THE FOURTH UNIVERSAL DEFINITIONS OF MYOCARDIAL INFARCTION. THE UPPER REFERENCE LIMIT (URL) OF TROPONIN, DEFINED THE 99TH PERCENTILE OF cTnI DISTRIBUTION IN A REFERENCE POPULATION, HAS BEEN CONFIRMED THE DECISION THRESHOLD FOR UT DIAGNOSIS. Performed By: #### P OCGLUC #### [facility] [address] [address] [address] Gibson Jin HSTROP <4.0 Normal 4.0-51.3 [facility] Comment on above: Result Comment: CUT- OFF POINTS HAVE BEEN ESTABLISHED BASED ON THE FOURTH UNIVERSAL DEFINITIONS OF MYOCARDIAL INFARCTION. THE UPPER REFERENCE LIMIT (URL) OF TROPONIN, DEFINED THE 99TH PERCENTILE OF cTnI DISTRIBUTION IN A REFERENCE POPULATION, HAS BEEN CONFIRMED THE DECISION THRESHOLD FOR UT DIAGNOSIS. Performed By: #### C MP, HSTROPN #### [facility] [address] [address] [address] Gibson Jin XR CHEST 1 Von [...] by: MATTHEW GUERRERO Date: 2022-10-12 10:36 Normal [facility] COVID + FLU Quick Testingon 09-20-2022 SARS-CoV-2 (COVID-19) RNA RIDGE+probe Ql (Unsp spec) Negative [facility] [employer] Other COVID + FLU Quick Testing Negative [facility] [employer] Other Quick Strepon 09-20-2022 S. pyogenes Org specific cx Ql (Throat) Negative [facility] [employer] Other Quick Strep [facility] [employer] Other COVID/FLU/RSV RT-PCRon 06-30 SARS-CoV-2 (COVID-19) RNA RIDGE+probe Ql (Unsp spec) Negative [facility] [employer] Other COVID/FLU/RSV RT-PCR Negative [facility] Other Registrationon 02-04-2022 Registration [id number]. 00CD:127 [facility] [place] 01-09-2022 Consent [id number] .00CD:127 [facility] COVID/FLU RT-PCRon 2 SARS-CoV-2 (COVID-19) RNA RIDGE+probe Ql (Unsp spec) Positive [facility] Other COVID/FLU RT-PCR Negative [facility] Other Coding Summary.on 08-04-2021 Coding Summary. CD:[id number] LnqS7AcvpKu RwdpeZYaIC35YAs3MWR4p FtnYIjgpK2zlZWnC5m5Fe BkUO55aU64SEnaDMVrWmC 3LjZpbjsgbWFy X3qvWeZtvXDtFga+PHRhY mxlIHdpZHRoPScxMDAlJy CdsUduIH5cUl9sQUPiMZH vbGxhcHNlOiBj t0icCLDiHKgePF8muXkxJ 8KkjSM0HWOeo7i7Mh14aD I+DBApCSO7vRhuCFabd71 2QeOkw4qiPYH3 wITrIDgcMFW8C19ed1L0K YPjIOLcRSS6yWY2iN9awO secknaU0BqvYMiLpR9KDG 2bRYxjP4fuKxb siasfL8bNqt+B95YZD7DO RBZBA5OEgc5T7GxBjbuoL I+AT33YLPdQQ60tVLnoSE au6ojlGy5PkAg YPZjTWZ3rZpiGMflr7DbL XWrS69ogINib2K3LMCggS qkuAYhVbMrpHQ8kS8fSIt sqawdp7eofaaa Xoovy3xyna08sK22R41bJ WxrPMHaPWQ9FTBoHONutA uwih8sbP4wNt3+EKnyb8y ge8eaoDw1CmHl WITmzkIimYwnZON1p7LiF f16N1GtgVlse8BhCsz3yr 11mVTii8A1yIT2TLxcOPM knR9yMSpsDvD8 WDMtUvVkbV90kGEpDGrxK s6mlWobxRstIQ2oVWGhww lgRNAmqO8fDMOioARzuIl dHH5rPOGnimcx y708ZaXiBTL5OTPzuLRgT 8EcoV0eWaZxWXObKHUhZ4 XryZVlYOjaQ735OTguAoZ 4DYAsowZaP2Tj LUFsmXzxVaR8u6D1Yz7Bt 7OosgazQHQ9YEnkEQFgVl QmXrXsToF7Q0TlZsl4CDW fnIwqQE8yM1Mb GCAmsxcqwnzaqHI1PFWxQ WJvxQ65pRFnAFyyVd5hn6 K7e852ACQiIYLitL63Ay5 udDogMTBwdCBU uI4bpvmec1dpekhmLqBuM CLcEXn9VHd2ENTwkEvtDv ZgOLF7TiK9CCU9eQSkcV0 pnWrdkhxiuF1w Oyc+R79hdA0fINR4CPW0l lseIQHrsdDnHZ73QL70L0 RyPjwvdGFibGU+PGRpdiB nnSckRF8aJsXe q6lnp6OfHUnvQ3ErLKKrX FgiHvo9UJUlGQI9tQS7nB 7xZWLrEXvhg1J7nKV6R0M lovGdck3og0to BIOeLPwfY71pxYSdx0V5N WCxuXY7KYBajKyuYsJdpO 93Oyc+AWWpeAexl2XxMit ct1fnv7uvdPs8 GyBzHOKwwxKaeKmaNOP6f 6IwEw72M34fMNuiBCRuKF YsAFLoOCQigOjjxp8vuX1 wIi8+PGNvbCB3 rDV1aZ5tASChBlZ3DNymQ 090CdQmuCLxCwhsy3kfz2 khdLr7AgLmPXFhxwNhsAa oBRL1s4OnQi30 S24hEWadPFRsBZFbYUMpU ZJurJpscr4ikP8oMw6+PC 3gp7bayb29zR98gIB+PHR tFHM6rZarUWkk SHKbyW5jSWfrEcY2IFPxF oRaeT85pFXyBWdqMw3joQ cshQnuIV0mOLDyljnla26 3QuVko7xuXESo vZCqHBlkIFU8C99sr0V7E AIgKEGkEQQ0yAP5wP2aoP lnbjogbGVmdDsgdmVydGl hEIlhKOcpX608 IHRvcDsnPlBhdGllbnQgT iCdXPl9L7MdJvc9PDOspK mjYR3rnXRrVKlqCo4siYp inVepLP0rXODf azneh128OrDva5ufTRHxb AJlINcnBUE4F94ea8G0SE CpATEoYBQ5zDW4uL3yiBb nbjogbGVmdDsg aqKhvCtjFJxvFKlrQ660Q HRvcDsnPkJpcnRoIERhdG R9BA04EE42cGXan2X5fWT 6R3AlICAniuaf wihkcBC5YEJmQLTmlN45P q9ztKhxSp6lEVAuWYT0FP DeqMWwW7McmD9bWfXkZIZ pWOJuJ1EkaJBk XBnxW405TPlaQgP8PRRgi mCnF6FvUZUpoHccHoM1u7 E3Bg3WH0E5VJ72XE06zSV hj4G4uLT3J9Ek OMJewixhifdpaPX9RVSpQ EZxdW96We7lpOtaCr6wWX FwNVF6QOYitPRjB6QnaE8 yOiAjMDAwMDAw V4FhmNWqPVwwS607JWplT rS3VVCfzcOzR8TcKBBgfW erFwI7l1E0Sq3AHGw0YW8 2QB31pCQdv6P6 dCB2K8YeBADeyfyblqolj CS3TDHpEHXdzZ87Uv3jtG duNo2iNPBlQZF0WWCqkQM sZ0DfmG2iAaSx DGFwQKFwF7JvjPZxNTzmL 796PHjyDhB8YQAafgMpO1 WoGDYpyQgzEyX2g9G1Vl0 XRVQbTM85VDI2 kNQ5OB71VE67A9VdSzzov GFibGU+PHRhYmxlIHdpZH RoPScxMDAlJyBzdHlsZT0 tEu7jFLLfBTMf gDxvnBDkGyOxk7atXEIvO MplVZ4egRefV9AafOC7SL Xkm4p4Lo94M40uO2NqbSK +EJDbnPR3rVB3 vZ0lDaSoTnA4ZOxxI465I zJthGSfKpkmo2fxm0ipdB v0RiP1TSVumkKmfEvlZQY 8e2IiQv81L89g IHdpZHRoPSIxNSUiIHZhb Vaeoa5knH6mOs9+PGNvbC N7lLC2eW2uGfAmGsH2FGu fM450HqTgeYGu Zjcmo1fit8bfuQn8EbGbR WWntbJrpJrtWKK1b8QzVq 54P6KsgVuzj5OlZtv0zs0 4bFGni6D6iSG3 U9NiCBVrfpyxySUpjHjgS R6hFIWkfhxoGAGmoX2tNV TsF1l0ByQzAkZ7VZyjF6K wnhJ0QLQdkELf GZjoYXA7R61le8N3MMXlL LDhRZH1gJO5kV8coLsvwf ogbGVmdDsgdmVydGljYWw aZAveE097IIYf sTyqMJJczW8tNLEryNTuf FqcRY5cLMTruhmmRymRAm NJQSwgTUFSSUEgRDwvdGQ +IOAgPFI8nKhg EJduOPKraB2xOXOuX9f7E cKcCsS2FTcsS5BoCXWdfl aaCi32nK5pShLmSrB6DSj uJ4UkdlP2HWGu aMYqFNdiKST1A49ur9J0Z IMqVOInGLX1aWE7rI3fkW lnbjogbGVmdDsgdmVydGl wVBwfWQpjO233 HHWkeFrwUaTpCjA7CnS8Q hA7T6PzIub6OFPzcPrvRS 2sqWMtQMayBn8ewUoeqYm cFQ1tQVNfcffz MUXppV6iCPYsbNXrlSrcX X9nFKIhqzptv929HqSaFM O7ONZrhIVhZ7MduI9wWlH wHANzMMQfP1Pb dPJgVLbwQ491CYosZqS8A UGuyuOoV5ZpRSCoiPssBi F3m0L0Sc94JVXVAWFhnve vdGQ+PHRkIHN0 zUxcGCjuVHYttZ1nQFVcV 5p5McVdYwV5JRbjQ4PoXN BflwwhRs41oN4cGhWxCwE 9RWwaX6WqblZ8 HXCleXKfXSioEZW3S84yr 5H4UFYgNNPmINP8zHW1tA 1hbGlnbjogbGVmdDsgdmV ydGljYWwtYWxp N927AMYyuJpkLoTfgLIsY TwvdGQ+LHLzFFK6fByaLV vcDAJxtL3bWJKfY7v2FaF kAzK8JMjjD5Az EPKszlhlQs09yQ2dAaZoF gD4PMgdM6GqyvM3UNPdtN BcYVipFSO4F44az1S5GLJ fZZBeKEU6nXW0 cV6mhYyyndhenDQreAoky dLuyHteHLdlTPhyQ367DJ ZhpTfaEeQmO2GnxeizLuc vdGQ+WO21xj11 M0JiTxoxHyt0CQQsEQX3h YE2kP7pCQNoYUbii6L6xJ E9Y7CtksXwdt7uz1eaEOG vGYvvJ12goADe m1E9SNVipND6ZDYxiMogO kZlmE86Wic+PGNvbGdyb3 JeGlkhw4klf7pfjBj9NdN wJSIgdmFsaWdu IRG1n1QjDf96L32yQUoyN HRoPSIzMCUiIHZhbGlnbj 1pmU2zSe1+JJHsbVM4qTR 7yG5mTiWeLaD8 QNrgR264SpUepFQrVcxgp 8gse8yiyKe1CwJcMSKzvh CiuNrkWFJ6o8TnJy81C9W foMckw5OvIfv3 gn29kXHcw5J3aNG9J2WvR XHihdfuyYKomAleHM8aNP RpwpdkBQSvdQ3pERHtN1t 1CrJcPcJ2RZwp V6FearG3HJUmoVQcMXRnu ECAtN2bpyhvf9pbnwfhVs DvARLdHZk5YEl8NAXcwYh sElLwDKX6ZmE5 QUG7wMHwuR5eqIdvkaegb G9wOyc+VDe1q1acnXIbAP 4itXI3OC59ZU86nWDcs7C 9zAM0Y1TyVQWf tltmjcselCP0BUYlOBOil J45Qw8wnEpxVg1yMNKoIX L6CWLyeFTwI5ZsgV2wAvH vKIMsYYZdR0Ft qFElGEtqD539MLsxZoZ1U TIqqxKoT5JqFSZucUyfNd X6v7L8Sm4APZ53ZL52WR2 6lVApc5I9qHN7 O1NjKODdcrxfpzpjeHY0Q SYsFIHbeB88Jz8trLhuYa 4lVIVmEDH4JGNbsLUfS9U cvN0rTbZnPYLr DDAqU9HfvMUkSRhaV089R DtcKnS2OUQrvrMrV6ZpGY KdxMzkNqT8v5W4Gw1UQj1 1MO58GW72aTIa g0P0fTJ9M4TgCGNsvhgux hfrdBB3NNKoZGWybZ70Cu 9stBvgYx9eSDZwANC6BHA ffVEpS1LzgJ0s BvXrNZWlAOIfZ9YjsWNtX MgsD134BQwmPcG9NNArcy VvJ3TgUGToiJyiDjQ3j8I 1Mz0CVMzzhxz3 C8PkBdqoeOZ+XC31NGZbC K42kJYzjCJdb4bmjCv9Od PjJPUlVVK5uJrqCXzyx6W cGOGkY40ziLOf c2U6 (more content not included)... Normal [facility] Consent for Treatmenton Consent for Treatment [id number]# [id number] Normal [facility] COVID-19 ([facility])on 08-01-2021 SARS-CoV-2 (COVID-19) RNA RIDGE+probe Ql (Resp) Not detected Normal Not Detected [facility] Comment on above: Result Comment: This test result should be correlated with clinical presentations and medical history by a healthcare provider to determine its clinical significance. This assay was performed by a reverse transcriptase real-time polymerase chain reaction (rt PCR) method on the [employer] system. This test has been authorized only [...] or revoked sooner. Performed By: #### 2 [id number] #### [facility] [address] [place] [address] SARS-CoV-2 (COVID-19) RNA RIDGE+probe Ql (Unsp spec) Pass Normal Pass [facility] Comment on above: Performed By: #### 2 [id number] #### [facility] [address] [place] [address] Specimen source Nom (Unsp spec) Nasal Normal [facility] Comment on above: Performed By: #### 2 [id number] #### [facility] [address] [id number] COVID-19 ([facility])on 07-30-2021 ADMITTED TO INTENSIVE CARE UNIT FOR CONDITION OF INTEREST:FIND:PT: Unknown Normal [facility] Comment on above: Performed By: #### 2 [id number] #### [facility] [address] [place] [address] EMPLOYED IN A HEALTHCARE SETTING:FIND:PT: Unknown Normal [facility] Comment on above: Performed By: #### 2 [id number] #### [facility] [address] [place] [address] FIRST TEST FOR CONDITION OF INTEREST:FIND:PT: Unknown Normal [facility] Comment on above: Performed By: #### 2 [id number] #### [facility] [address] [place] [address] HAS SYMPTOMS RELATED TO CONDITION OF INTEREST:FIND:PT: Unknown Normal [facility] Comment on above: Performed By: #### 2 [id number] #### [facility] [address] [place] [address] HOSPITALIZED FOR CONDITION OF INTEREST:FIND:PT: Unknown Normal [facility] Comment on above: Performed By: #### 2 [id number] #### [facility] [address] [place] [address] STATUS:FIND:PT: Unknown Normal [facility] Comment on above: Performed By: #### 2 [id number] #### [facility] [address] [place] [address] [facility] C[facility] SETTING:FIND:PT: Unknown Normal [facility] Comment on above: Performed By: #### 2 [id number] #### [facility] [address] [place] [address] CBC Auto DifferentialOrdered By: Tita Palma on 01-13-2021 Absolute Eos # 0.10 [facility] Work Phone: Absolute Immature Granulocyte NOT REPORTED [facility] Work Phone: Absolute Lymph # 0.80 Low [facility] Work Phone: Absolute Campbell # 0.50 [facility] Work Phone: Basophils (Bld) [#/Vol] 0.00 10*3/uL [facility] Work Phone: Basophils/100 WBC (Bld) 0 % 0 - 2 % [employer] Phone: Differential Type YES Status Overload Phone: Eosinophils/100 WBC (Bld) 1 % 0 - 5 % [employer] Phone: Hematocrit (Bld) [Volume fraction] 42.0 % 36 - 46 % [employer] Phone: Hemoglobin.gastrointes tinal spec 1 Ql (Stl) 14.3 g/dL 12.0 - 16.0 g/dL [employer] Phone: Immature Granulocytes NOT REPORTED 0 % [facility] [employer] Phone: Interpretation and review of laboratory results Abnormal [employer] Phone: Lymphocytes/100 WBC (Bld) 11 % Low 15 - 40 % [employer] Phone: MCH (RBC) [Entitic mass] 29.5 pg 26 - 34 pg [employer] Phone: MCHC (RBC) [Mass/Vol] 34.1 g/dL 31 - 37 g/dL [employer] Phone: MCV (RBC) [Entitic vol] 86.5 fL 80 - 100 fL [employer] Phone: Monocytes/100 WBC (Bld) 7 % 4 - 8 % [employer] Phone: NRBC Automated NOT REPORTED per 100 WBC [employer] Work Phone: Platelet distribution width (Bld) [Ratio] 13.3 % 12.1 - 15.2 % [employer] Phone: Platelet Estimate NOT REPORTED [employer] Phone: Platelet mean volume (Bld) [Entitic vol] NOT REPORTED 6.0 - 12.0 fL [employer] Phone: Platelets (Bld) [#/Vol] 340 10*3/uL [employer] Phone: RBC (Bld) [#/Vol] 4.86 10*6/uL 4.0 - 5.2 m/uL [employer] Work Phone: RBC (Bld) [#/Vol] NOT REPORTED [employer] Work Phone: Segmented neutrophils/100 WBC (Bld) 81 % High 47 - 75 % [employer] Work Phone: Segs Absolute 6.30 [employer] Work Phone: WBC (Bld) [#/Vol] 7.8 10*3/uL [employer] Work Phone: WBC (Bld) [#/Vol] NOT REPORTED [employer] Work Phone: [employer] Work Phone: CTA CHEST W CONTRASTOrdered By: Impinj on 01-13-2021 No evidence for acut e large occlusive pulmonary embolism. No evidence for thoracic aortic aneurysm or dissection flap. No suspicious lung infiltrates or consolidation. Hepatic steatosis. Mild gastroesophageal wall thickening, correlate clinically. [employer] Work Phone: EXAMINATION: CTA CHEST W CONTRAST [...] distal esophagitis/wall lesion. No acute bony abnormality. [employer] Phone: More[place], [facility] Incoming Radiant Results From [facility] - 01/13/2021 10:06 PM EDT EXAMINATION: CTA [...] steatosis. Mild gastroesophageal wall thickening, correlate clinically. [employer] Phone: [employer] Phone: Comprehensive Metabolic Pane lOrdered By: Tita Palma on 01-13-2021 Albumin [Mass/Vol] 4.3 g/dL 3.5 - 5.2 g/dL [employer] Phone: Albumin/Globulin Ratio NOT REPORTED [employer] Phone: ALP (Bld) [Catalytic activity/Vol] 165 U/L High 35 - 104 U/L [employer] Phone: ALT [Catalytic activity/Vol] 24 U/L 5 - 33 U/L [employer] Phone: Anion gap [Moles/Vol] 10 mmol/L 9 - 17 mmol/L [employer] Phone: AST [Catalytic activity/Vol] 14 U/L <32 [employer] Phone: Bilirubin [Mass/Vol] 0.24 mg/dL Low 0.30 - 1.20 mg/dL [employer] Phone: Calcium [Mass/Vol] 9.9 mg/dL 8.6 - 10. 4 mg/dL [employer] Phone: Chloride [Moles/Vol] 101 mmol/L 98 - 10 7 mmol/L [employer] Phone: CO2 [Moles/Vol] 24 mmol/L 20 - 31 mmol/L [employer] Phone: Creatinine [Mass/Vol] 1.04 mg/dL High 0.50 - 0.90 mg/dL [employer] Phone: Free PSA/Total PSA [Mass fraction] 7.9 g/dL 6.4 - 8.3 g/dL [employer] Phone: GFR >60 >60 mL/min [employer] Phone: GFR Non- 55 mL/min Low >60 [employer] Phone: GFR/1.73 sq M.predicted MDRD (S/P/Bld) [Vol rate/Area] [employer] Phone: Comment on above: Average GFR for 50-5 9 years old: 93 mL/min/1.73sq m Chronic Kidney Disease: <60 mL/min/1.73sq m Kidney failure: <15 mL/min/1.73sq m eGFR calculated using average adult body mass. Additional eGFR calculator available at: http://www.[employer]ista/multiple_crcl_2012.htm GFR/1.73 sq M.predicted MDRD (S/P/Bld) [Vol rate/Area] NOT REPORTED [facility] Phone: Glucose [Mass/Vol] 126 mg/dL High 70 - 99 mg/dL [employer] Phone: Interpretation and review of laboratory results Abnormal [employer] Phone: Potassium [Moles/Vol] 4.2 mmol/L 3.7 - 5.3 mmol/L [employer] Phone: Sodium [Moles/Vol] 135 mmol/L 135 - 144 mmol/L [employer] Phone: Urea nitrogen (BldV) [Mass/Vol] 17 mg/dL 6 - 20 mg/dL [employer] Phone: Urea nitrogen/Creatinine (Bld) [Mass ratio] 16 [employer] Phone: [employer] Phone: D-Dimer, QuantitativeOrdered By: Tita Palma on 01-13-2021 D-Dimer, Quant 0.88 [employer] Work Phone: Comment on above: When combined [...] Interpretation and review of laboratory results Abnormal [employer] Phone: [employer] Phone: SPECIMEN REJECTIONOrdered By : Impinj on 01-13-2021 - NOT REPORTED [employer] Phone: Ordered Test CP TROP [employer] Phone: Reason for Rejection Unable to perform testing: Specimen hemolyzed. [employer] Phone: Specimen source Nom (Unsp spec) BLOOD IV START [employer] Phone: [employer] Phone: TroponinOrdered By: Impinj on 01-13-2021 Troponin Interp NOT REPORTED Status Overload Phone: Troponin T NOT REPORTED <0.03 ng/mL [employer] Work Phone: Troponin, High Sensitivity <6 0 - 14 ng/L [employer] Phone: Comment on above: High Sensitivity Troponin values cannot be compared with other Troponin methodologies. Patients with high levels of Biotin oral intake (i.e >5mg/day) may have falsely decreased Troponin levels. Samples collected within 8 hours of biotin intake may require additional information for diagnosis. [employer] Phone: Troponin Interp NOT REPORTED [employer] Work Phone: Troponin T NOT REPORTED <0.03 ng/mL [employer] Work Phone: Troponin, High Sensitivity <6 0 - 14 ng/L [employer] Phone: Comment on above: High Sensitivity Troponin values cannot be compared with other Troponin methodologies. Patients with high levels of Biotin oral intake (i.e >5mg/day) may have falsely decreased Troponin levels. Samples collected within 8 hours of biotin intake may require additional information for diagnosis. [employer] Phone: XR CHEST PORTABLEOrdered By: Vesgil Louie on 01-13-2021 No focal consolidation, pneumothorax or pleural effusion. [employer] Work Phone: EXAM: XR CHEST PORTABLE HISTORY: Shortness of breath, chest pain. COMPARISON: None. TECHNIQUE: AP radiograph of the chest was performed. FINDINGS: No focal consolidation, pneumothorax or pleural effusion. There is mild elevation of the right hemidiaphragm. The cardiomediastinal silhouette is unremarkable. There are degenerative changes of the spine. [employer] Work Phone: [facility], [facility] Incoming Radiant Results From [facility] - 01/13/2021 8:24 PM EDT EXAM: XR CHEST PORTABLE HISTORY: Shortness of breath, chest pain. COMPARISON: None. TECHNIQUE: AP radiograph of the chest was performed. FINDINGS: No focal consolidation, pneumothorax or pleural effusion. There is mild elevation of the right hemidiaphragm. The cardiomediastinal silhouette is unremarkable. There are degenerative changes of the spine. IMPRESSION: No focal consolidation, pneumothorax or pleural effusion. [employer] Work Phone: [employer] Work Phone: Vital Signs Date Time Vital Sign Value Performing Clinician Facility 11-08-2024 10:15-0400 Diastolic blood pressure 77 mm[Hg] [facility] Crane [facility] 11-08-2024 10:15-0400 Heart rate 77 /min Jhonatan Crane MD [facility] 11-08-2024 10:15-0400 Respiratory rate 15 /min Jhonatan Crane MD [facility] 11-08-2024 10:15-0400 SaO2% (BldA) [Mass fraction] 93 % Jhonatan Crane MD [facility] 11-08-2024 10:15-0400 Systolic blood pressure 141 mm[Hg] Jhonatan Crane MD Work Phone: [facility] 11-08-2024 09:36-0400 Body temperature 96.8 [degF] Jhonatan Crane MD Work Phone: [facility] 11-08-2024 07:45-0400 Body height 157.5 cm Jhonatan Crane MD Work Phone: [facility] 11-08-2024 07:45-0400 Body mass index (BMI) [Ratio] 33.03 kg/m2 Jhonatan Crane MD Work Phone: [facility] 11-08-2024 07:45-0400 Body weight 81.92 kg Jhonatan Crane MD Work Phone: [facility] 05-22-2024 15:19-0400 Body mass index (BMI) [Ratio] 33.66 kg/m2 Chris Madsen [employer]INT ROOM WORKER[employer]AFTER Work Phone: [facility] 05-22-2024 15:19-0400 Body weight 86.18 kg Chris Madsen PRINT ROOM WORKER-DRAFTER Work Phone: [facility] 05-01-2024 11:34-0400 Body height 160 cm Dayana Domínguezing [employer] ELECT[employer]ICAL ENGINEER Work Phone: [facility] 05-01-2024 11:34-0400 Body mass index (BMI) [Ratio] 34.19 kg/m2 Dayana Apling [employer]INE[employer] Work Phone: [facility] 05-01-2024 11:34-0400 Body weight 87.54 kg Dayana Apling [employer]INE[employer] Work Phone: [facility] 04-19-2024 13:13-0400 Body height 157.48 cm [facility] 04-19-2024 13:13-0400 Body mass index (BMI) [Ratio] 35.2 kg/m2 [facility] 04-19-2024 13:13-0400 Body temperature 98.1 [degF] [facility] 04-19-2024 13:13-0400 Body weight 87.31 kg [facility] 04-19-2024 13:13-0400 Diastolic blood pressure 82 mm[Hg] [facility] 04-19-2024 13:13-0400 Heart rate 87 /min [facility] 04-19-2024 13:13-0400 SaO2% (BldA) [Mass fraction] 97 % [facility] 04-19-2024 13:13-0400 Systolic blood pressure 126 mm[Hg] [facility] 06-16-2023 10:00-0500 Body height 157.48 cm Samra Shamika Other [employer] Other 06-16-2023 10:00-0500 Body mass index (BMI) [Ratio] 35.52 kg/m2 Samra Shamika Other [employer] Other 06-16-2023 10:00-0500 Body temperature 98 [degF] Samra Shamika Other [employer] Other 06-16-2023 10:00-0500 Body weight 88.09 kg Samra Yehmond Other [employer] Other 06-16-2023 10:00-0500 Diastolic blood pressure 80 mm[Hg] Samra Shamika Other [employer] Other 06-16-2023 10:00-0500 Respiratory rate 18 /min Samra Shamika Other [employer] Other 06-16-2023 10:00-0500 SaO2% (BldA) [Mass fraction] 95 % Samra Shamika Other [employer] Other 06-16-2023 10:00-0500 Systolic blood pressure 132 mm[Hg] Samra Shamika Other [employer] Other 09-20-2022 11:45-0500 Body height 157.48 cm Siobhan Meyers Other [employer] Other 09-20-2022 11:45-0500 Body mass index (BMI) [Ratio] 34.93 kg/m2 Siobahn Meyers Other [employer] Other 09-20-2022 11:45-0500 Body temperature 98.3 [degF] Siobhan Meyers Other [employer] Other 09-20-2022 11:45-0500 Body weight 86.64 kg Siobhan Meyers Other [employer] Other 09-20-2022 11:45-0500 Respiratory rate 18 /min Siobhan Meyers Other [employer] Other 09-20-2022 11:45-0500 SaO2% (BldA) [Mass fraction] 98 % Siobhan Meyers Other [employer] Other 06-30-2022 18:35-0500 Body height 157.48 cm Cassandra Tim Other [employer] Other 06-30-2022 18:35-0500 Body mass index (BMI) [Ratio] 34.56 kg/m2 Cassandra Dumont Other [employer] Other 06-30-2022 18:35-0500 Body temperature 97.7 [degF] Cassandra Dumont Other [employer] Other 06-30-2022 18:35-0500 Body weight 85.73 kg Cassandra Dumont Other [employer] Other 06-30-2022 18:35-0500 Diastolic blood pressure 72 mm[Hg] Cassandra Dumont Other [employer] Other 06-30-2022 18:35-0500 Respiratory rate 18 /min Cassandra Tim Other [employer] Other 06-30-2022 18:35-0500 SaO2% (BldA) [Mass fraction] 98 % Cassandra Tim Other [employer] Other 06-30-2022 18:35-0500 Systolic blood pressure 126 mm[Hg] Cassandra Tim Other [employer] Other 12-18-2021 16:55-0400 Body height 157.48 cm Siobhan Meyers Other [employer] Other 12-18-2021 16:55-0400 Body mass index (BMI) [Ratio] 32.92 kg/m2 Siobhan Gonzalezault Other [employer] Other 12-18-2021 16:55-0400 Body temperature 98.9 [degF] Siobhan Luigi Other [employer] Other 12-18-2021 16:55-0400 Body weight 81.65 kg Siobhan Gonzalezault Other [employer] Other 12-18-2021 16:55-0400 Respiratory rate 16 /min Siobhan Luigi Other [employer] Other 12-18-2021 16:55-0400 SaO2% (BldA) [Mass fraction] 95 % Siobhan Meyers Other [employer] Other 01-13-2021 22:34-0400 Diastolic blood pressure 80 mm[Hg] Tita Palma MD Work Phone: [employer] Work Phone: 01-13-2021 22:34-0400 Heart rate 78 /min Tita Palma MD Work Phone: [employer] Work Phone: 01-13-2021 22:34-0400 Respiratory rate 17 /min Tita Pamla MD Work Phone: [employer] Work Phone: 01-13-2021 22:34-0400 Systolic blood pressure 134 mm[Hg] Tita Palma MD Work Phone: [employer] Work Phone: 01-13-2021 19:33-0400 Body temperature 98.01 [degF] Tita Palma MD Work Phone: [employer] Work Phone: 01-13-2021 19:33-0400 Body weight 79.38 kg Tita Palma MD Work Phone: [employer] Work Phone: 01-13-2021 19:33-0400 SaO2% (BldA) [Mass fraction] 99 % Tita Palma MD Work Phone: [employer] Work Phone: Encounters Encounter Date Encounter Type Care Provider Facility Start: 04-10-2025 End: 04-10-2025 Edelmira SORIA Work Phone: [facility] Start: 04-10-2025 End: 04-10-2025 Edelmira SORIA Work Phone: [facility] Start: 04-10-2025 End: 04-10-2025 Office outpatient visit 25 minutes Jose SORIA Work Phone: [facility] Comment on above: Acute pain of right shoulder (Primary Dx); Arthritis of right acromioclavicular joint Start: 04-10-2025 End: 04-10-2025 ambulatory JOSE VALERA Not Available Start: 04-06-2025 End: 04-06-2025 ambulatory [facility] Start: 03-13-2025 End: 03-13-2025 Bamboo flowsheet Jose SORIA Work Phone: [facility] Start: 03-13-2025 End: 03-13-2025 Bamboo flowsheet Jose SORIA Work Phone: [facility] Start: 03-13-2025 End: 03-13-2025 Office outpatient visit 25 minutes Jose SORIA Work Phone: [facility] Comment on above: Acute pain of right shoulder (Primary Dx); Arthritis of right acromioclavicular joint; Impingement of right shoulder Start: 03-13-2025 End: 03-13-2025 ambulatory JOSE VALERA Not Available Start: 11-08-2024 End: 11-08-2024 ambulatory JHONATAN CRANE [facility] Start: 11-08-2024 End: 11-08-2024 Subsequent hospital visit by physician Jhonatan Crane MD Work Phone: [facility] Comment on above: Chronic GERD Start: 10-25-2024 End: 10-25-[address] [facility] Start: 10-25-2024 End: 10-25-2024 Patient encounter status Austin SORIA Work Phone: [facility] Start: 10-25-2024 End: 10-25-2024 Subsequent hospital visit by physician Austin SORIA Work Phone: [facility] Comment on above: Pre-op testing Start: 10-17-2024 End: 10-17-[address] [facility] Start: 10-17-2024 Encounter for other preprocedural examination [facility] Start: 10-17-2024 End: 10-17-2024 Patient encounter status Austin SORIA Work Phone: [facility] Start: 10-17-2024 End: 10-17-2024 Subsequent hospital visit by physician Austin SORIA Work Phone: [facility] Comment on above: Pre-op testing Start: 10-11-2024 End: 10-11-2024 ambulatory [facility] Start: 09-25-2024 End: 09-25-2024 Telephone encounter Chris A Felter [employer] Work Phone: [facility] Start: 08-10-2024 End: 08-10-2024 Office outpatient visit 15 minutes Chris A Felter [employer] Work Phone: [facility] Comment on above: Psoriasis vulgaris ( CMS/HCC) (Primary Dx); High risk medication use Start: 08-10-2024 End: 08-10-2024 Bamboo flowsheet Chris A Felter [employer] Work Phone: [facility] Start: 08-10-2024 End: 08-10-2024 Bamboo flowsheet Chris A Felter [employer] Work Phone: [facility] Start: 08-10-2024 End: 08-10-2024 ambulatory CHRIS A FELTER Not Available Start: 05-22-2024 End: 05-22-2024 Office outpatient visit 25 minutes Chris A Felter [employer] Work Phone: [facility] Comment on above: Psoriasis vulgaris ( CMS/HCC); Psoriatic arthritis (CMS/HCC); High risk medication use Start: 05-22-2024 End: 05-22-2024 ambulatory CHRIS A FELTER Not Available Start: 05-22-2024 End: 05-22-2024 Bamboo flowsheet Chris Steele Felter PRINT ROOM WORKER-DRAFTER Work Phone: [facility] Start: 05-22-2024 End: 05-22-2024 Bamboo flowsheet Chris Steele Felter PRINT ROOM WORKER-DRAFTER Work Phone: [facility] Start: 05-01-2024 End: 05-01-2024 Bamboo flowsheet Dayana Macias Apling WIND TURBINE ELECTRICAL ENGINEER Work Phone: [facility] Start: 05-01-2024 End: 05-01-2024 Bamboo flowsheet Dayana Colleen Apling WIND TURBINE ELECTRICAL ENGINEER Work Phone: [facility] Start: 05-01-2024 End: 05-01-2024 Office outpatient new 30 minutes Dayana Macias Apling WIND TURBINE ELECTRICAL ENGINEER Work Phone: [facility] Comment on above: Left shoulder pain, unspecified chronicity (Primary Dx); Arthritis of left acromioclavicular joint; Left shoulder tendonitis; Adhesive capsulitis of left shoulder Start: 05-01-2024 End: 05-01-2024 ambulatory DAYANA Macias APLING Not Available Start: 04-19-2024 End: 04-19-2024 ambulatory [facility] Work Phone: Start: 04-19-2024 End: 04-19-2024 Patient encounter procedure [facility] ysician [facility] Work Phone: Start: 04-04-2024 End: 04-04-2024 ambulatory [facility] Start: 03-31-2024 End: 03-31-2024 ambulatory JHONATAN Vela [facility] Start: 03-23-2024 ambulatory [facility] Start: 03-21-2024 End: 03-26-2024 ambulatory [facility] Start: 03-03-2024 Non-patient / Non-visit [facility] Work Phone: Start: 12-21-2023 End: 12-23-2023 ambulatory UNKNOWN PROVIDER Facility:[facility] Start: 12-21-2023 End: 12-23-2023 Patient encounter procedure Colleen Bro DDS Work Phone: [facility] Start: 12-14-2023 End: 12-16-2023 Patient encounter procedure Maribel Connors DDS Work Phone: [facility] Start: 12-14-2023 End: 12-16-2023 ambulatory UNKNOWN PROVIDER Facility:[facility] Start: 10-22-2023 End: 10-22-2023 ambulatory UNKNOWN PROVIDER Facility:[facility] Start: 10-22-2023 End: 10-22-2023 Patient encounter procedure Amina Jackson [facility] Other Phone: [facility] Start: 09-15-2023 End: 09-16-2023 Patient encounter procedure Delbert Bejarano DDS Other Phone: [facility] Start: 09-15-2023 End: 09-16-2023 ambulatory UNKNOWN PROVIDER Facility:[facility] Start: 06-16-2023 End: 06-16-2023 ambulatory Samra Wick Other [employer] Other Start: 06-16-2023 Office outpatient vi sit 15 minutes Samra Wick [facility] [place] Start: 05-23-2023 Letter encounter [facility] Start: 10-12-2022 End: 10-13-[address] TREY CAN Facility: Start: 09-20-2022 End: 09-20-2022 ambulatory Siobhan Meyers Other [employer] Other Start: 09-20-2022 Office outpatient vi sit 15 minutes Siobhan Meyers [facility] [place] Start: 06-30-2022 End: 06-30-2022 ambulatory Cassandra Dumont Other [employer] Other Start: 06-30-2022 Office outpatient vi sit 25 minutes Cassandra Dumont [facility] [place] Start: 12-18-2021 End: 12-18-2021 ambulatory Siobhan Meyers Other [employer] Other Start: 12-18-2021 Office outpatient vi sit 25 minutes Siobhan Meyers [facility] [place] Start: 07-30-2021 End: 10-29-2021 Patient encounter procedure MORALES BILLARI [facility] Start: 01-13-2021 End: 01-13-2021 Emergency department patient visit Tita Palma MD Work Phone: [facility] Comment on above: Chest pain, unspecif ied type (Primary Dx); Anxiety state Procedures Date Procedure Procedure Detail Performing Clinician Start: 03-13-2025 Arthrocentesis aspir &/inj major jt/bursa w/o us Jose SORIA Work Phone: Start: 03-13-2025 Radex shoulder compl ete minimum 2 views Jose SORIA Work Phone: Start: 10-25-2024 Basic metabolic pane l calcium total Candy Schmidt PRINT ROOM WORKER - DRAFTER Work Phone: Start: 10-17-2024 Ecg routine ecg w/le ast 12 lds w/i&r Candy Schmidt PRINT ROOM WORKER - DRAFTER Work Phone: Start: 05-01-2024 Arthrocentesis aspir &/inj major jt/bursa w/o us Dayana Woodard WIND TURBINE ELECTRICAL ENGINEER Work Phone: Start: 03-31-2024 Colonoscopy Austin Darrell [...] 60 yrs+ (1 - 1-dose 75+ series) [facility] Start: 03-31-2034 Screening for malignant neoplasm of colon [facility] Start: 07-16-2030 DTaP/Tdap/Td vaccine (2 - Td or Tdap) DTaP/Tdap/Td vaccine (2 - Td or Tdap) [facility] Start: 07-16-2030 Tetanus vaccination Tetanus (Td or Tdap) Booster [facility] Start: 11-28-2028 Cholesterol [Mass/volume] in Serum or Plasma Cholesterol [facility] Start: 06-26-2028 Cholesterol [Mass/volume] in Serum or Plasma Cholesterol [facility] Start: 11-10-2026 Screening for malignant neoplasm of colon Cologuard (Stool DNA) [facility] Start: 11-03-2026 Screening for malignant neoplasm of colon Fecal-DNA (Cologuard): Average risk [facility] Start: 10-25-2025 GFR test (Diabetes, CKD 3-4, OR last GFR 15-59) GFR test (Diabetes, CKD 3-4, OR last GFR 15-59) [facility] Start: 05-08-2025 End: 05-08-2025 Patient encounter procedure [facility] Start: 04-10-2025 End: 04-10-2025 Patient encounter procedure 04/10/2025 10:45 AM EDT Office Visit [facility] [address] [place] [phone] Jose Valera PA [address] [place] [phone] Acute pain of right shoulder (Primary Dx) [facility] Comment on above: Acute pain of right shoulder (Primary Dx ) Start: 03-13-2025 End: 03-13-2025 Patient encounter procedure 03/13/2025 10:15 AM EDT Office Visit [facility] [address] [place] [address] Jose Valera PA [address] [place] [address] Acute pain of right shoulder (Primary Dx) [facility] Comment on above: Acute pain of right shoulder (Primary Dx ) Start: 02-23-2025 Influenza vaccination Flu vaccine (Season Ended) [facility] Start: 11-08-2024 End: 11-08-2024 Admission to same day surgery center [facility] Comment on above: EGD Start: 11-08-2024 End: 11-08-2024 Esophagogastroduodenoscopy transoral diagnostic [facility] Start: 11-08-2024 Subsequent hospital visit by physician [facility] Start: 09-25-2024 End: 09-25-2024 Patient encounter procedure 09/25/2024 2:35 PM EST Office Visit [facility] [address] [place] [phone] Chris Madsen APRN-DRAFTER [address] [place] [address] [facility] Start: 08-10-2024 End: 08-10-2024 Patient encounter procedure 08/10/2024 2:05 PM EST Office Visit [facility] [address] [place] [address] Chris Madsen Ivette, PRINT ROOM WORKER-DRAFTER [address] [place] [address] Arrived [facility] Comment on above: Arrived Start: 06-26-2024 End: 05-22-2025 QUANTIFERON TB GOLD QUANTIFERON TB GOLD Lab Routine Psoriasis vulgaris (CMS/HCC) Psoriatic arthritis (CMS/HCC) High risk medication use Expected: 06/26/2024 (Approximate), Expires: 05/22/2025 [facility] Work Phone: Comment on above: Expected: 06/26/2024 (Approximate), Expi res: 05/22/2025 Start: 06-06-2024 End: 06-06-2024 Patient encounter procedure [facility] Start: 05-22-2024 End: 05-22-2024 Patient encounter procedure [facility] Comment on above: Arrived Start: 05-15-2024 End: 05-15-2024 Patient encounter procedure 05/15/2024 11:00 AM EDT Office Visit [facility] [address] [place] [address] Dayana Woodard, WIND TURBINE ELECTRICAL ENGINEER [address] [place] [address] [facility] Start: 05-01-2024 End: 05-01-2024 Patient encounter procedure 05/01/2024 11:30 AM EDT Office Visit [facility] [address] [place] [address] Dayana Woodard, WIND TURBINE ELECTRICAL ENGINEER [address] [place] [address] Left shoulder pain, unspecified chronicity (Primary Dx); Arthritis of left acromioclavicular joint; Left shoulder tendonitis; Adhesive capsulitis of left shoulder [facility] Comment on above: Left shoulder pain, unspecified chronici ty (Primary Dx); Arthritis of left acromioclavicular joint; Left shoulder tendonitis; Adhesive capsulitis of left shoulder Start: 03-26-2024 COVID-19 Vaccine ( season) COVID-19 Vaccine ( season) [facility] Start: 02-25-2024 End: 02-25-2024 Patient encounter procedure 02/25/2024 11:00 AM EDT Procedure Visit [facility] [address] [id number] Pasquale Rosa, [address] [place] [address] [facility] Start: 02-24-2024 Influenza vaccination Flu vaccine (#1) [facility] Start: 02-18-2024 End: 02-18-2024 Patient encounter procedure 02/18/2024 10:00 AM EDT Procedure Visit [facility] [address] [place] [address] Emory Devlin, [address] [place] [address] [facility] Start: 12-21-2023 End: 12-21-2023 Patient encounter procedure [facility] Start: 12-14-2023 End: 12-14-2023 Patient encounter procedure 12/14/2023 11:00 AM EDT Procedure Visit [facility] [address] [place] [address] Js Putnam, DDS [address] [place] [address] [facility] Start: 11-12-2023 Screening for malignant neoplasm of colon CRC Screening [facility] Start: 10-22-2023 End: 10-22-2023 Patient encounter procedure 10/22/2023 9:50 AM EDT Procedure Visit [facility] [address] [place] [address] Pasquale Rosa DDS [address] [place] [address] [facility] Start: 09-15-2023 End: 09-15-2023 Patient encounter procedure 09/15/2023 10:50 AM EST Procedure Visit [facility] [address] [place] [address] Pasquale Rosa DDS [address] [place] [address] [facility] Start: 2023 Hepatitis B (HBV) Vaccine (optional start 60+ years) Hepatitis B (HBV) Vaccine (optional start 60+ years) [facility] Start: 2023 RSV vaccine (optional 60+ years) RSV vaccine (optional 60+ years) [facility] Start: 03-26-2023 COVID-19 Vaccine ( season) COVID-19 Vaccine ( season) [facility] Start: 03-26-2023 Influenza vaccination Influenza Vaccine (#1) [facility] Start: 01-13-2022 GFR test (Diabetes, CKD 3-4, OR last GFR 15-59) GFR test (Diabetes, CKD 3-4, OR last GFR 15-59) [employer] Start: 03-26-2021 Influenza vaccination Flu vaccine (Season Ended) [employer] Phone: Start: 2013 Screening for malignant neoplasm of breast Breast cancer screen [employer] Phone: Start: 2013 Screening for malignant neoplasm of colon Colon cancer screen colonoscopy [employer] Phone: Start: 2013 Shingles (RZV) Vaccine (1 of 2) Shingles (RZV) Vaccine (1 of 2) [facility] Start: 2013 Shingles Vaccine (1 of 2) Shingles Vaccine (1 of 2) [facility] [employer]) Start: 2008 Cholesterol [Mass/volume] in Serum or Plasma Cholesterol [facility] Start: 2008 Screening for malignant neoplasm of colon [facility] Start: 2003 [facility]id panel [facility]: Start: 2003 Screening for malignant neoplasm of breast [facility] Start: 1993 [facility]ix [facility] Start: 1984 [facility]ening for malignant neoplasm of cervix [facility] Start: 1982 Hepatitis A (HAV) Vaccine (optional start 19+ years) Hepatitis A (HAV) Vaccine (optional start 19+ years) [facility] Start: 1982 Pneumococcal 50+ years Vaccine (1 of 2 - PCV) Pneumococcal 50+ years Vaccine (1 of 2 - PCV) [facility] Start: 1982 Tetanus vaccination Tetanus (Td or Tdap) Booster [facility] Start: 1981 Glaucoma screening Diabetic retinal exam [facility] Start: 1981 [facility]atitis C screening [facility] Start: 1981 Tetanus + diphtheria + acellular pertussis vaccine (product) Tdap Booster [facility] Start: 1981 Urine screening for protein Diabetic Alb to Cr ratio (uACR) test [facility] Start: 1978 HIV screening [facility] Start: 1975 COVID-19 Vaccine (1) COVID-19 Vaccine (1) [facility]: Start: 1975 Depression Screen Depression Screen [facility] [employer] Start: 1973 Diabetic foot examination Diabetic foot exam [facility] Start: 1973 Hemoglobin A1c measurement A1C test (Diabetic or Prediabetic) [facility] [employer] Start: 1973 Lipid panel Lipids [facility] [employer] Start: 1963 COVID-19 Vaccine (#1) COVID-19 Vaccine (#1) [facility] Start: 1963 Hepatitis C screening Hepatitis C screen [facility]: Start: 1963 Screening for malignant neoplasm of colon [facility] EKG 12 Lead EKG 12 Lead ECG Routine 01/13/2021 7:37 PM EDT [facility] Work Phone: Pathology study Surgical Patholo gy Lab Routine Chronic GERD Release Upon Ordering for 1 Occurrences starting 11/08/2024 [facility] Comment on above: Release Upon Ordering for 1 Occurrences starting 11/08/2024 Immunizations Immunization Date Immunization Notes Care Provider Fa darrylty 05-26-2021 influenza, injectabl e, quadrivalent, preservative free Delbert Alfredo Munozara DDS Other Phone: [facility] 05-26-2021 influenza virus vaccine, unspecified formulation Delbert Fuentes Andara DDS Other Phone: [employer] Work Phone: 07-16-2020 tetanus toxoid, reduced diphtheria toxoid, and acellular pertussis vaccine, adsorbed Delbert Fuentes Andara DDS Other Phone: [facility] Payers Date Payer Category Payer Unknown SP/UNINSURED [facility] [employer] EVALUATION 2023-Present Other [id number] 2020 Medicaid [id number] 2020 Medicaid (Managed Care) 1.2. [id number] 1963 Unknown [id number] 2.16.840.1.919182.3.579.2. 593 1963 Unknown [id number] 2.16.840.1.957533.3.579.2. 732 1963 Unknown [id number] 2.16.840.1.628256.3.579.2. 732 1963 Unknown [id number] 2.16.840.1.062936.3.579.2. 732 1963 Unknown [id number] 2.16.840.1.152896.3.579.2. 732 1963 Unknown [id number] 2.16.840.1.419743.3.579.2. 1286 1963 Unknown [id number] 2.16.840.1.716205.3.579.2. 1286 1963 Unknown [id number] 2.16.840.1.925135.3.579.2. 1286 1963 Unknown [id number] 2.16.840.1.547405.3.579.2. 173 1963 Unknown [id number] 2.16.840.1.329846.3.579.2. 173 1963 Unknown [id number] 2.16.840.1.980716.3.579.2. 173 1963 Unknown [id number] 2.16.840.1.818012.3.579.2. 174 1963 Unknown [id number] 2.16.840.1.353506.3.579.2. 1259 1963 Unknown [id number] 2.16.840.1.276344.3.579.2. 1259 1963 Unknown [id number] 2.16.840.1.489435.3.579.2. 1259 1963 Unknown [id number] 2.16.840.1.240762.3.579.2. 1259 1963 Unknown [id number] 2.16.840.1.189319.3.579.2. 1259 1963 Unknown [id number] 2.16.840.1.514581.3.579.2. 1259 1959 Medicaid [id number]. [id number] Social History Date Type Detail Facility Start: 01-13-2021 End: 05-01-2024 Tobacco smoking status [facility] Never smoker [facility] Start: 01-13-2021 End: 05-01-2024 Tobacco use and exposure Never used [employer] Start: 01-13-2021 Alcohol intake Lifetime non-d melchor (finding) [employer] Work Phone: Start: 01-13-2021 History SDOH Alcohol Frequency 1 [employer] Work Phone: Start: 01-13-2021 Alcohol Comment occasional [employer] Work Phone: Start: 1965 Sex Assigned At Not on file M Pownce Work Phone: Exposure to SARS-CoV -2 (event) Not sure [employer] Start: 11-18-2023 End: 03-13-2025 Sex Assigned At Female [facility] Tobacco smoking stat [facility] Tobacco smoking consumption unknown [facility] Start: 1965 Sex Assigned At Female F [facility] Start: 11-18-2023 End: 03-13-2025 History of Social function [employer] Start: 04-29-2024 Gender identity Identifies as female gender (finding) [facility] Start: 05-01-2024 End: 04-10-2025 Alcoholic beverage intake Ex-drinker (finding) [facility] Start: 03-31-2024 Tobacco smoking stat [facility] Occasional tobacco smoker [employer] History of tobacco use Cigarette Smoker B on [employer]) Start: 10-17-2024 End: 11-08-2024 Alcoholic beverage intake Current drinker of alcohol (finding) [facility] [employer]) Physical abuse Denies [employer] Start: 03-31-2024 Tobacco Comment Very sporadic. Once every few months. [employer] Start: 03-31-2024 Alcohol Comment 1 beer every few [employer] Start: 01-13-2021 Sex Female (finding) [employer] Start: 10-30-2024 Tobacco smoking stat [facility] Ex-smoker [employer] History of tobacco use Current smoker [employer] Medical Equipment Procedure Code Equipment Code Equipment [...] requiring urgent evaluation. Visit was preformed using [employer]-towboat pilot speech recognition. documented in this encounter [facility] 04-06-2025 Note [facility] Subjective Dayana Steele is a 59 [...] Medications Current Outpatient Medications: adalimumab (Humira,CF, Pen Vzas-Fj-Zddh HS) 80 mg/0.8 mL-40 mg/0.4 mL pen [...] PSYCH: appropriate mood (more content not included)... [facility] 03-13-2025 History of Present illness Narrative Associated [...] given injection Right Shoulder SA space (Code 00486 RT) Procedure, treatment alternatives, risks and benefits [...] requiring urgent evaluation. Visit was preformed using [employer]-towboat pilot speech recognition. documented in this encounter [facility] 11-08-2024 History of Present illness Narrative [...] require patient to operate motor Vehicle. Yes [facility] Preadmission Testing Name: Dayana Steele : 1965 [...] [x] Ride Home [x] No Jewelry/Contact Lenses/Nail [place] [] Prep/Lax/Clear Liquids [] Chlorhexidene DOS Patient Needs [] HCG [x] Blood Sugar [] PT/INR [] T&S Do you have any metal allergies? [] Yes [x] No If yes, to what metals: Patient instructed on the pre-operative, intra-operative, and post-operative process? Yes Medication instructions reviewed with patient? Yes documented in this encounter [facility] 11-08-2024 Hospital Discharge instructions Jhonatan Crane [...] one drug, even if it is an yevi-ihf-ifqybct medication, herb, or dietary supplement, be sure [...] to control the problem with antacids or qelw-smw-axmaqot medicine. You can also make lifestyle changes [...] with your medicine. Your doctor may recommend caho-fyr-shuxboc medicine. For mild or occasional indigestion, antacids, such as Tums, Mylanta, or Maalox, may help. Your doctor also may recommend imdo-uub-gevoalt acid reducers, such as famotidine (Pepcid AC), [...] Where can you learn more? Go to https://www.theRightAPI.net/patient Ed and enter T927 to learn more about Gastroesophageal Reflux Disease (GERD): Care Instructions. Current as of: May 13, 2024 Content Version: 14.4 [employer]. Care instructions adapted under license by [employer]. If you have questions about a medical condition or this instruction, always ask your healthcare professional. [employer], disclaims any warranty or liability for your [...] v lvula no se carlos herm ticamente. [place] tambi n puede causar dolor e hinchaz [...] C mo puede cuidarse en el hogar? [place] los medicamentos exactamente kaykay le fueron recetados. [...] encontrar m paresh informmichael n? Vaya a https://MOBEXO.theRightAPI.net/p atientedes e escriba T927 para m s informaci n sobre Enfermedad de reflujo gastroesof gico (GERD): Instrucciones de cuidado. Revisado: 2023 Versi n del contenido: 14.4 [facility] I.[employer] [facility]. Las instrucciones de cuidado fueron adaptadas bajo licencia por [facility]. Si usted tiene preguntas sobre [place] afecci n m dica o sobre estas instrucciones, siempre pregunte a reynoso profesional de marvin. [employer], [employer], niega toda garant a o responsabilidad por reynoso uso de esta informaci n. documented in this encounter [facility] 10-11-2024 Note [facility] Subjective Dayana Steele is a 59 [...] Medications Current Outpatient Medications: adalimumab (Humira,CF, Pen Xpnc-Rs-Cbhx HS) 80 mg/0.8 mL-40 mg/0.4 mL pen [...] Alfonso Lexiscan nuclear stress test: 10/13/2022 at [facility] result EKG result Assessment/Plan Essential hypertension, on carvedilol, well-controlled Hyperlipidemia, not on medications due to elevated liver enzyme Type 2 diabetes mellitus Obesity, BMI 32.9 kg/m??? Fatty liver with elevated liver enzyme Psoriasis, on Humira Hypothyroidism GERD Plan: Continue carvedilol and low-salt diet Obta (more content not included)... [facility] 09-25-2024 Telephone encounter Note Appointment today was supposed to be in April which she already has scheduled. Please let patient know she does not need to come in today [facility] 09-25-2024 Miscellaneous Notes Appointment today was supposed to be in April which she already has scheduled. Please let patient know she does not need to come in today documented in this encounter [facility] 08-10-2024 History of Present illness Narrative [...] Visit: April 2025 documented in this encounter [facility] 05-22-2024 History of Present illness Narrative [...] Visit: 4 months documented in this encounter [facility] 05-01-2024 History of Present illness Narrative [...] mri of the left shoulder done at [facility] on 04/04/24, reveals adhesive capsulitis and tendonitis, [...] to decrease first. documented in this encounter [facility] 12-21-2023 History of Present illness Narrative ----- Thursday, December 21, 2023 at 11:49:45 AM ----- ----- Provider: Resident Arianne -- Clinic: [facility] ----- COMPOSITE LATTER-DAY Patient is scheduled for Amish on tooth #9 surface F5. Reviewed Medical History. Pt exhibited the following conditions: No significant medical history Patient is ready for treatment. Topical Benzocaine gel applied at the injection site for 2 minutes. Administered 1 carpules of Lidocaine, 2% with Epinephrine 1:100,000,. isolation achieved. Decay/existing latter day removed, cavity prepared. Selectively etched enamel with 37% phosphoric acid, rinsed, and blot dried. OptiBond hills applied and light-cured. Condensed packable composite shade A3 in light cured increments using Retraction cord with hemostatic gel Finished with finishing burs, checked occlusion, verified proximal contacts and latter day was polished. Rinsed and suctioned intraorally, advised patient to not eat until local anesthesia wears off. POST OPERATIVE Periapical (single) RADIOGRAPH TAKEN. Next Visit: Restorative ----- Signed on Thursday, December 21, 2023 at 3:48:00 PM ----- ----- Provider: [id number] - Chelsea Sun DDS -- Clinic: [facility] ----- documented in this encounter [facility] 12-14-2023 History of Present illness Narrative ----- Thursday, December 14, 2023 at 12:33:43 PM ----- ----- Provider: [id number] - Resident Anahi -- Clinic: [facility] ----- COMPOSITE LATTER-DAY Patient is scheduled for Amish on tooth #18 surface DO. Reviewed Medical History. Pt exhibited the following conditions: No significant medical history Patient is ready for treatment. Topical Benzocaine gel applied at the injection site for 2 minutes. Administered 1 carpules of Lidocaine, 2% with Epinephrine 1:100,000,. Cotton roll isolation achieved. Decay/existing latter day removed, cavity prepared. Selectively etched enamel with 37% phosphoric acid, rinsed, and blot dried. Xeno IV hills applied and light-cured. Condensed packable composite shade A2 in light cured increments using Aut[employer]. Finished with finishing burs, checked occlusion, verified proximal contacts and latter day was polished. Rinsed and suctioned intraorally, advised patient to not eat until local anesthesia wears off. POST OPERATIVE Periapical (single) RADIOGRAPH TAKEN. Next Visit: Mercedes ----- Signed on Thursday, December 14, 2023 at 2:29:42 PM ----- ----- Provider: [id number] - Pasquale Martin DDS -- Clinic: [facility] ----- documented in this encounter [employer] 10-22-2023 History of Present illness Narrative ----- Sunday, October 22, 2023 at 12:00:23 PM ----- ----- Provider: [id number] Geovanny Mac Hygienist -- Clinic: [facility] ----- [facility], Pt is ready for tx. Pt [...] Gann RDH documented in this encounter [employer] Work Phone: 09-15-2023 History of Present illness Narrative ----- Friday, September 15, 2023 at 11:18:51 AM ----- ----- Provider: [id number] Resident Olga -- Clinic: [facility] ----- INITIAL/COMPREHENSIVE EXAM Patient presents for an [...] 2023 at 11:23:03 AM ----- ----- Provider: [id number] Geovanny Martin DDS -- Clinic: [facility] ----- documented in this encounter [employer] Work Phone: 06-16-2023 Evaluation note Encounter [...] no improvement in 2 to 3 days [employer] Other 03-20-2023 NoteCARDIAC STRESS TEST Requesting Physician: [...] portion is negative for ischemia.[id number]* Encounter Date Diagnosis Assessment Notes [...] care provider if no improvement of symptoms [employer] Other 12-06-2022 Evaluation note* Encounter Date Diagnosis [...] other viral communicable diseases (ICD-10 - Z20.828) [employer] Other 05-26-2022 Evaluation note* Encounter Date Diagnosis Assessment Notes Treatment Notes Treatment Clinical Notes November, Cough (ICD-10 - R05.9) November, COVID-19 (ICD-10 - U07.1) Today you tested positive for the COVID virus. This mean you need to follow all CDC quarantine guidelines found at [email or web address] v. It is important to rest, increase [...] UP AND WHEN TO SEEK EMERGENCY TREATMENT [employer] Other Evaluation + Plan note No data available for this section [facility] Diagnosis Chest pain, unspecified type- Primary Anxiety state Anxiety state, unspecified documented in this encounter [employer] Work Phone: evaluation note* Diagnosis Onset Date Resolution Status Anxiety acute Bilateral foot pain acute Diabetes acute HTN (hypertension) acute Onychomycosis acute Psoriasis (a type of skin inflammation) acute [facility] Work Phone: Evaluation note* Diagnosis Left shoulder pain, unspecified chronicity- Primary Arthritis of left acromioclavicular joint Left shoulder tendonitis Adhesive capsulitis of left shoulder documented in this encounter [facility] Healthcare[facility]* Diagnosis Psoriasis vulgaris ([facility]) Other psoriasis Psoriatic arthritis ([facility]/HCC) Psoriatic arthropathy High risk medication use documented in this encounter [facility] HealthcareEvaluation note* Diagnosis Psoriasis vulgaris (CMS/HCC)- Primary Other psoriasis High risk medication use documented in this encounter [facility] HealthcareEvaluation note* Diagnosis Chronic GERD- Primary Pre-op testing Preoperative examination, unspecified Chronic GERD documented [facility]* Diagnosis Chronic GERD- Primary Pre-op testing Preoperative examination, unspecified Chronic GERD documented in this encounter [facility]* Diagnosis Chronic GERD- Primary documented in this encounter [facility]* Diagnosis Acute pain of right shoulder- Primary Arthritis of right acromioclavicular joint Impingement of right shoulder [facility]* Diagnosis Acute pain of right shoulder- Primary Arthritis of right acromioclavicular joint documented [facility] this encounter [facility] Healthcare[facility] general Narrative - Reported* Type Description Date Medical History Anxiety Medical History HTN (hypertension) Surgical History ablasion uterine [employer] Other History general Narrative - Reported* Type Description Date Medical History Anxiety Medical History HTN (hypertension) Surgical History ablasion uterine Hospitalization History Kidney Infection 1994 Hospitalization History chest pain 2022 [employer] [facility] Other Hospital Discharge instructions* Attachments The following attachments cannot be sent through Care Everywhere. * Chest Pain (Guamanian) * Anxiety Disorder (Guamanian) [facility] Work Phone: Hospital Discharge instructions No data available for this section [facility] Narrative* Auth/Cert Specialty Diagnoses / Procedures Referred By Jacob myers Referred To Contact Diagnoses Chronic GERD Procedures RI ESOPHAGOGASTRODUODENOSCOPY TRANSORAL DIAGNOSTIC RI EGD BALLOON DILATION ESOPHAGUS <30 MM DIAM RI EGD TRANSORAL BIOPSY SINGLE/MULTIPLE ESOPHAGOGASTRODUODENOSCOPY Jhonatan Crane MD [address] [place] [id number] Phone: tel: [facility] [address] [place] [address] Referral ID Status Reason Start Date Expiration Date Visits Re quested Visits Authorized [id number] [address] [facility] [employer] [facility] Summary Purpose Family History No [...] L subacromial bursa Dayana Woodard NP [address] [address] Referral ID Status Reason Start Date Expiration Date V isits Requested Visits Authorized [id number] Authorized 05/01/2024 10/28/2024 1 1 Additional Source [...] (NoRateChange - Provider: Prince Chávez APRN - TANNING CONSULTANT)[id number] (Anesthesia Volume Adjustment - Provider: Prince Chávez APRN - TANNING CONSULTANT) INFORMATION SOURCE (unrecogn ized section and content) DATE CREATED AUTHOR 02/11/2022 [facility] DATE CREATED AUTHOR AUTHOR'S ORGANIZ ATION 10/15/2022 [facility] DATE CREATED AUTHOR AUTHOR'S ORGANIZ ATION 12/27/2023 [facility] [employer] [facility] DATE CREATED AUTHOR AUTHOR'S ORGANIZ ATION 04/09/2024 [facility] DATE CREATED AUTHOR AUTHOR'S ORGANIZ ATION 10/28/2024 [facility] DATE CREATED AUTHOR AUTHOR'S ORGANIZ ATION 11/13/2024 [facility] DATE CREATED AUTHOR AUTHOR'S ORGANIZ ATION 04/08/2025 [facility] DATE CREATED AUTHOR AUTHOR'S ORGANIZ ATION 04/11/2025 [facility] d[facility] Specialists EPIC Care Teams (unrecognized [...] End: April 19, 2024 Kymberly Banegas APRN [employer]C Attending Provider Active Start: March End: April 19, 2024 Leading Firefighter Relationship Specialty Start Date End Date Cassidy Escamilla NP [address] [place] [address] Referring Physician Family Medicine 05/01/24 Leading Firefighter Relationship Specialty Start Date End Date Cassidy Escamilla NP [address] [place] [address] Referring Physician Family Medicine 05/01/24 Leading Firefighter Relationship Specialty Start Date End Date Cassidy Escamilla NP [address] [place] [address] Referring Physician Family Medicine 05/01/24 Leading Firefighter Relationship Specialty Start Date End Date Cassidy Escamilla NP [address] [place] [address] Referring Physician Family Medicine 05/01/24 Leading Firefighter Relationship Specialty Start Date End Date Cassidy Escamilla NP [address] [place] [address] Referring Physician Family Medicine 05/01/24 Leading Firefighter Relationship Specialty Start Date End Date Cassidy Escamilla NP [address] [place] [address] Referring Physician Family Medicine 05/01/24 Leading Firefighter Relationship Specialty Start Date End Date Cassidy Escamilla NP [address] [place] [address] Referring Physician Family Medicine 05/01/24 Leading Firefighter Relationship Specialty Start Date End Date Austin Kent PA [address] [place] [address] PCP - General Physician Belly Roller 09/25/24 Leading Firefighter Relationship Specialty Start Date End Date Austin Kent PA [address] [place] [address] PCP - General Physician Belly Roller 09/25/24 Leading Firefighter Relationship Specialty Start Date End Date Austin Kent PA [address] [place] [address] PCP - General Physician Belly Roller 09/25/24 Leading Firefighter Relationship Specialty Start Date End Date Austin Kent PA [address] [facility] [place] [address] PCP - General Family Medicine 03/13/25 Leading Firefighter Relationship Specialty Start Date End Date Austin Kent PA [address] [facility] [place] [address] PCP - General Family Medicine 03/13/25 Leading Firefighter Relationship Specialty Start Date End Date Austin Kent PA [address] [facility] [place] [address] PCP - General Family Medicine 03/13/25 Goals [...] BE BASED ON THE PRIMARY CLINICAL RECORDS. [employer] provides no warranty or guarantee of the accuracy or completeness of information in this document.
--- NOTE | 2025-05-04 09:45 | NM_ITS ---
Patient Name: SANDRO STEELE MR#: [id number] : 1965 Exam Date: 05/04/2025 Ordering Doctor: DR. SILAS RUBY M.D. RADIOLOGY REPORT PROCEDURE: NM NAEEM PERF SPECT REST STR COMPARISON: None. INDICATIONS: CHEST PAIN, HYPERTENSION TECHNIQUE: Exam Description: Stress/Rest one day protocol gated SPECT Rest Imagin.2 mCi Tc-99m Cardiolite IV on 05/04/2025 Stress Imaging 30.8 mCi Tc-99m Cardiolite IV on 05/04/2025 Exercise Protocol: 0.4 mg Lexiscan given IV Heart Rate (bpm): Rest: 88 Max: 101 PMHR: 63 Blood Pressure: Rest: 92/80 Max: 148/86 Symptoms: Rest and peak stress ECG findings were pending and the EKG portion of the study was pending per attending physician [facility] . For more details please see separate cardiac stress test report. FINDINGS: QUALITY OF STUDY: Good PERFUSION DEFECT: None LOCATION: SIZE: SEVERITY: TYPE: WALL MOTION: Normal LV SIZE: EDV 41 mL. TID / TCD: 0.8 LVEF: Calculated EF 72%. SUMMARY: Normal myocardial perfusion imaging study CONCLUSION: Normal nuclear myocardial perfusion stress images without evidence of ischemia or infarction Normal left ventricle systolic function, ejection fraction 72% No transient ischemic dilatation, TID 0.8 EKG portion of stress test is reported separately Dictated by: Silas Ruby MD on 05/04/2025 at 17:56 Approved by: Silas Ruby MD on 05/04/2025 at 17:59
--- NOTE | 2025-05-04 10:00 | CA_ITS ---
Patient Name: SANDRO STEELE MR#: [id number] : 1965 Exam Date: 05/04/2025 Ordering Doctor: DR. SILAS RUBY M.D. ECHOCARDIOGRAM REPORT PROCEDURE: CA ECHO DOPPLER COMPLETE INDICATIONS: Precordial pain COMPARISON: None. DESCRIPTION: COMPLETE ECHOCARDIOGRAM Real-time transthoracic echocardiography with 2D, M-mode, spectral and color flow Doppler performed. QUALITY: Technical quality was good. LEFT VENTRICLE: Normal chamber size. Borderline left ventricular hypertrophy. Global left ventricular systolic function is normal without wall motion abnormalities. Calculated left ventricular ejection fraction is 57%. LV EF: DIASTOLIC: Normal diastolic function. ATRIAL SEPTUM: Visually appears intact LEFT ATRIUM: Normal chamber size. RIGHT ATRIUM: Normal chamber size. RIGHT VENTRICLE: Normal chamber size. Normal right ventricular systolic function. TRICUSPID VALVE: Normal mobility and thickness. No stenosis with trivial regurgitation. No evidence of pulmonary hypertension.RVSP 23mmHg. MITRAL VALVE: Normal mobility and thickness. No evidence of mitral valve stenosis. There is no mitral annular calcification. Trivial mitral regurgitation. AORTIC VALVE: Normal trileaflet appearance. No visible sclerosis. Normal leaflet mobility. No evidence of aortic valve stenosis. No aortic regurgitation. AORTIC ROOT: Normal diameter and appearance. PULMONIC VALVE: Normal thickness and mobility. No stenosis. No regurgitation. PERICARDIUM: No evidence of pericardial effusion. IVC: Collapes with inspirations. Normal size. PLEURA: CONCLUSION: Normal left ventricle cavity size, borderline left ventricle wall thickness Normal left ventricular systolic function without wall motion abnormalities, ejection fraction 57% Normal left ventricle diastolic function Normal right ventricle size and systolic function Normal right-sided pressures, RVSP 23 mmHg No significant valvular abnormalities Adult Echocardiography Procedure Report Left Ventricle LVEDD (3.7 - 5.6 cm): 4.07 cm LVESD (2.2 - 4.0 cm): 2.80 cm LVIVS thickness (0.6 - 1.2 cm): 1.14 cm LVPW thickness (0.5 - 1.0 cm): 0.92 cm e': 0.07 m/s E - e': 6.87 LVOT Max Gradient: 4.03 mm[Hg] LVOT Area (cm2): 1.00 m/s Peak Velocity (LVOT): 1.00 m/s Mean Velocity (LVOT): 0.72 m/s LVOT Diameter 1.89 cm Left Ventricular Ejection Fraction: 56.99 % Left Atrium LA Volume Index (2D A2C): 17.88 ml/m2 Left Atrium Systolic Dimension: 3.48 cm Mitral Valve MV E to A Ratio: 0.64 MV Max Gradient: MV Mean Gradient: Mitral Valve A-Wave Peak Velocity: 0.77 m/s Mitral Valve E-Wave Peak Velocity: 0.49 m/s Cardiovascular Orifice Area: Right Ventricle RV Internal Diastolic Dimension: 2.89 cm Aorta AO Root Diam: 2.89 cm Ascending Ao Diam: 2.99 cm Aortic Valve AoV Area (Peak Benjamin): 2.70 cm2, 2.70 cm2 AoV Area (VTI): 3.03 cm2, 3.03 cm2 Deceleration Cole: Pressure Half-Time: Peak Velocity(Antegrade Flow): 1.05 m/s Peak Gradient(Antegrade Flow): 4.39 mm[Hg] Mean Velocity(Antegrade Flow): 0.66 m/s Mean Gradient(Antegrade Flow): 2.07 mm[Hg] Velocity Time Integral: 18.48 cm Tricuspid Valve Peak Velocity (Regurgitant Flow): 2.08 m/s, 1.97 m/s, 2.24 m/s, 2.23 m/s Peak Velocity: Pulmonic Valve Mean Gradient: 2.07 mm[Hg] Mean Velocity: 0.69 m/s Peak Velocity: 0.93 m/s, 1.24 m/s Peak Gradient: 6.18 mm[Hg], 3.46 mm[Hg] Right Atrium Right Atrium Systolic Pressure: 27.09 ml, 27.09 ml Dictated by: Silas Ruby MD on 05/04/2025 at 17:30 Approved by: Silas Ruby MD on 05/04/2025 at 17:39
--- NOTE | 2025-05-04 11:19 | PC.NURSE ---
Nursing Note Cardiac Stress Test Reviewed: Medication, allergies and patient history reviewed. Stress Test: [x ] Patient tolerated stress test well. [ ] Patient unable to tolerate walking on treadmill. Switched to Lexiscan stress test. [x ] No chest pain noted per patient [ ] Chest pain that resolved prior to leaving stress lab. [x ] No dyspnea noted. [ ] Dyspnea that resolved prior to leaving stress lab. [x ] Patient left stress lab asymptomatic and hemodynamically stable. [ ] Patient taken to the Emergency Room due to non-resolving symptoms following stress test. [ ] Patient achieved target heart rate. [ ] Patient unable to achieve target heart rate. [ ] Aminophylline administered as reversal agent to Lexiscan (Regadenoson). [ ] Nitro administered. Nursing Comments:
[2025-05-04] MEDS: REGADENOSON 0.4 MG/5 ML SYRINGE IV (11:25)
--- NOTE | 2025-05-04 18:16 | PM.STRESS ---
Stress Test Stress Test Allergies Allergy/AdvReac Type Severity Reaction Status Date / Time No Known Drug Allergies Allergy Verified 02/16/23 06:57 Requesting physician: Jolene Ruby Procedure: Lexiscan nuclear stress test General Information: Reason for Stress Test: [Chest pain] Cardiac History and Risk Factors: [Hypertension, diabetes mellitus, smoking] Resting 12 - Lead Electrocardiogram: Resting twelve-lead EKG showed normal sinus rhythm, heart rate 86 bpm, left axis deviation, voltage criteria for LVH, nonspecific T wave abnormalities. Resting blood pressure 134/92 mmHg. Lexiscan 0.4 mg was injected intravenously and the patient was monitored for a few minutes. Peak heart rate 101 bpm represents 63% of age-predicted maximum heart rate. Peak blood pressure 148/86 mmHg. The patient did not report any symptom throughout the test. EKGs throughout the test did not show any significant ST changes or any significant arrhythmia Stress Test: Protocol: [Zee scan] Exercise Capacity: [Determined] Blood Pressure Response: [Normal resting blood pressure with normal response] Rhythm: [No arrhythmias] ST - Response: [No ST changes] Patient Response: [No chest pain] Interpretation: Negative Lexiscan EKG stress test for ischemia Nuclear myocardial perfusion stress images is reported separately Jolene Ruby MD, FACC
== END 2025-05-04 09:32 | disposition home or self-care (01) ==
LOC: NM 09:32
PROVIDERS: PCP Nurse Practitioner; Visit Provider Internal Medicine Cardiovascular Disease
DX: R07.2 Precordial pain (principal)
CPT/HCPCS: 78452; 93017; 93306; A9500; J2785

== ENCOUNTER 2025-06-18 10:02 | Outpatient (OUT) | payer OTHER, SELFPAY ==
--- OUTSIDE RECORDS SUMMARY | 2025-03-07 10:00 | XMS_ITS ---
Author Organization [facility] Address [address] [place] [address] Care Team Providers Care Customer Services Supervisor Name Role Phone Dr. Nate Queen Primary Care Provider [phone] Lary Tobar Unavailable Unavailable REASON FOR VISIT PERIO EVAL Encounters Encounter Location Date Provider Diagnosis [facility] [address] [place] [address] 03/07/2025 Lary Hansen Plan Of Treatment Next Appt Details Provider Name:Lary Hansen, 09/06/2025 03:00:00 PM, [address], [place], [address], Provider Name:Emily Rasmussen, 10/19/2025 01:30:00 PM, [address] [place], [address], Provider Name:Emily Rasmussen, 10/22/2025 01:00:00 PM, [address] [place], [address], Progress Notes * SANDRO STEELEDOB:1965 (60 yo F)Acc No.[id number]:03/07/2025 Patient:?SANDRO STEELE :?Larymireille HansenDOB:1965???Age:59 Y???Sex: FemaleDate:03/07/2025Phone:[phone]:[address] [facility]Pcp:Dr. Nate Queen Subjective: * Chief Complaints: * P ERIO EVAL * Electronic signature of Lary Hansen on 06/18/2025 at 10:13 AM ESTSign off status: Pending * Provider: Ginna Hansen Date: 0 03/07/2025 Generated for Printing/Faxing/eTransmitting on:?06/18/2025 10:13 AM EST
--- OUTSIDE RECORDS SUMMARY | 2025-06-11 14:20 | XMS_ITS | Encounter Summary ---
Demographics Address [address] [place] [address] Home Phone Preferred Language en Marital Status Single Pentecostal Affiliation Unknown Race Other Race Ethnic Group Unknown Author Organization [facility] Address [address] [place] [address] Care Team Providers Care Foreign Policy Officer Name Role Phone Austin Kent Primary Care Provider [phone] Reason for Visit * ReasonCommentsFollow-upPatient is here today for a 1 month follow up with Echo and stress test.HypertensionHyperlipidemia Encounter Details DateTypeDepartmentCare Team (Latest Contact Info)Qdqiuwlkuey66/17/2025 2:20 PM ESTOffice Visit [facility] [address] [place] [address] Jolene Ruby MD [address] [place] [address] Precordial pain (Primary Dx); Essential hypertension; Pure hypercholesterolemia; Diabetes mellitus type II, non insulin dependent (CMS/HCC); Fatty liver; Body mass index (BMI) of 32.0-32.9 in adult; Hypothyroidism, adult Social History Tobacco UseTypesPacks/DayYears UsedDateSmoking Tobacco: NeverSmokeless Tobacco: FormerAlcohol UseStandard Drinks/WeekCommentsYes1 (1 standard drink = 0.6 oz pure alcohol)ID Safety & EnvironmentAnswerDate RecordedFear of Current or Ex-PartnerNot on file09/16/2023Emotionally AbusedNot on file09/16/2023hysically AbusedNot on file09/16/2023Sexually AbusedNot on file09/16/2023hysically or Sexually AbusedNot on file09/16/2023CommentsUnknownSex and Gender InformationValueDate RecordedSex Assigned at YezllLctaef54/08/2025 1:56 PM EDT Legal HvdWimaem37/22/2023 10:51 AM EDTGender NthyhekrWfxleh98/08/2025 1:56 PM EDTSexual OrientationHeterosexual or Yopjwjri42/08/2025 1:56 PM EDTdocumented as of this encounter Last Filed Vital Signs Vital SignReadingTime TakenCommentsBlood Ytvhtfsk994/7806/11/2025 2:04 PM EST Dewrg910906/11/2025 2:04 PM ESTTemperature--Respiratory Rate--Oxygen Asgnrjwcdc00% 06/11/2025 2:04 PM ESTInhaled Oxygen Concentration--Acgpxv49.8 kg (176 lb) 06/11/2025 2:04 PM YIBZkcryk828.5 cm (5' 2 )06/11/2025 2:04 PM ESTBody Mass Index32.19108/11/2024 2:04 PM ESTdocumented in this encounter Functional Status * BPAnswerDate of DfgtqeraskTrhfxe816/ 2:04 PM Xena Francois MA * PulseAnswerDate of MubiaqawxuFjjozv5635/17/2025 2:04 PM Xena Francois MA * Audit Alcohol ScreeningQuestionAnswerDate of AssessmentAuthorHow often do you have a drink containing alcohol? 2:04 PM Xena Francois MA * Patient PositionAnswerDate of SoqvmpahptIlmlupUnjdtzl52/17/2025 2:04 PM Xena Redding MA * BPAnswerDate of KdhhyebbupCvgqhk243/7806/11/2025 2:04 PM Xena Francois MA * PulseAnswerDate of FamtfwmjpcLqtcvj3030/17/2025 2:04 PM Xena Francois MA * MyI4FiswwfMpqz of RwguymhlabUvfgjc3097/17/2025 2:04 PM Xena Francois MA * BP LocationAnswerDate of AssessmentAuthorL[facility]06/11/2025 2:04 PM Xena Redding MA * Audit Alcohol ScreeningQuestionAnswerDate of AssessmentAuthorHow often do you have a drink containing alcohol? 2:04 PM Xena Francois MA * Patient PositionAnswerDate of FwdkxblucbQhnhzwTnpsrmb14/17/2025 2:04 PM Xena Redding MA documented as of this encounter Progress Notes * Jolene Ruby MD - 06/11/2025 2:20 PM EST Images from the original note were not included. ID Cardiology - [facility] Subjective Dayana Severino is a 60 y.o. year old female patient being seen for follow-up visit on hypertension,hyperlipidemia, diabetes mellitus, obesity and fatty liver follow-up visit Patient Active Problem List Diagnosis Benign hypertensive heart disease without heart failure Mixed hyperlipidemia Diabetes mellitus type II, non insulin dependent (CMS/HCC) Fatty liver Positive colorectal cancer screening using Cologuard test Pure hypercholesterolemia Chronic GERD Precordial pain Essential hypertension Anxiety Bilateral foot pain Body mass index (BMI) of 32.0-32.9 in adult Chronic bilateral low back pain without sciatica Hypothyroidism, adult Less than a high school diploma Onychomycosis Psoriasis Dietary counseling and surveillance Type 2 diabetes mellitus with diabetic polyneuropathy, without long-term current use of insulin (CMS/HCC) HPI Patient is here today for follow-up visit. She reports that she has been doing well. She reports that her blood pressure at home has been normal. She denies any chest pain or shortness of breath at rest or with exertion. She reports that she has chronic back pain and she follows with chiropractor. She denies orthopnea or paroxysmal nocturnal dyspnea or dizziness or palpitations or legs edema She reports that her diabetes is under better control and last HbA1c was around 7% 04/06/2025 Patient reports that yesterday after she did many errands in the town and after she went back home she felt feverish and back pain which has been going on for about 2 months and some chest tightness.She checked her blood pressure and was significantly [...] beer per week Drug use: Never Allergies Allergies Allergen Reactions Pogkwmli-Hphkxi-Uqcty Pepper Other Other Reaction(s): sneezing Medications Current Outpatient Medications: aspirin 81 mg EC tablet, Take 1 tablet (81 mg) by mouth in the morning., Disp: 30 tablet, Rfl: 11 carvedilol (Coreg) 25 mg tablet, Take 1 tablet (25 mg) by mouth with breakfast and with evening meal., Disp: 60 tablet, Rfl: 11 Farxiga 10 mg, Take 1 tablet by [...] BY MOUTH EVERY DAY 30 MINUTES BEFORE MORNINGMEAL (Patient taking differently: 40 mg before breakfast.), Disp: , Rfl: Taltz Autoinjector 80 mg/mL auto-injector, as directed Subcutaneous, Disp: , Rfl: Trulicity 1.5 mg/0.5 mL pen injector, as directed Subcutaneous once weekly for 28 days, Disp: , Rfl: adalimumab (Humira,CF, Pen Jjyl-Uj-Mubt HS) 80 mg/0.8 mL-40 mg/0.4 mL pen injector kit pen-injectorstarter kit, Inject 80 mg (contents of one pen) under the skin on day 1. Inject 40 mg (contents of one pen) under the skin on day 8 and day 22. (Patient not taking: Reported on 06/11/2025), Disp: , Rfl: DULoxetine (Cymbalta) [address] capsule, Take 20 mg by mouth in the morning. Do not crush or chew. (Patient not taking: Reported on 06/11/2025), Disp: , Rfl: SITagliptin phosphate (Januvia) 25 mg tablet, Take 25 mg by mouth in the morning. (Patient not taking: Reported on 06/11/2025), Disp: , Rfl: Objective Visit Vitals BP 125/78 (BP Location: Left arm, Patient Position: Sitting) Pulse 94 Ht 1.575 m (5' 2 ) Wt 79.8 kg (176 lb) SpO2 95% BMI 32.19 kg/m?? Smoking Status Never BSA 1.87 m?? Physical exam: GENERAL: alert and oriented x3, [...] extremity edema. No rash/skin discoloration present. NEURO: Grossly normal Recent Labs 10/18/2024 Triglyceride 128, cholesterol 160, HDL 49, LDL 85, AST 67, ALT 157 TSH 3.299 HbA1c 8.4% 04/25/2024 TSH 2.79, free T40.94 03/03/2024 White blood count 6.6, hemoglobin 14.7, hematocrit 44.8, platelets 296 Sodium 137, potassium 4.6, BUN 14, creatinine 0.88, GFR above 60, glucose 261, HbA1c 9.4% Calcium 9.3 Total bilirubin 0.5, AST 76, ALT 212, alk phos 220, total protein 7.4, albumin 3.4 Triglyceride 145, cholesterol 191, LDL 110, HDL 52 Imaging and other tests EKG today 04/06/2025 showed normal sinus rhythm, heart rate 74 bpm, left axis deviation, voltage criteria for LVH, no significant change in comparison to EKG from 03/03/2024 EK03/03/2024 showed normal sinus rhythm, heart rate 71 bpm, left axis deviation, voltage criteria for LVH, nonspecific T wave changes Echo 05/04/2025 CONCLUSION: Normal left ventricle cavity size, borderline left ventricle wall thickness Normal left ventricularsystolic function without wall motion abnormalities, ejection fraction 57% Normal left ventricle diastolic function Normal right ventricle size and systolic function Normal right-sided pressures, RVSP 23 mmHg No significant valvular abnormalities Lexiscan nuclear stress test 04/2025 Echo: 10/13/2022 at [place] Lexiscan nuclear stress test: 10/13/2022 at [place] Nuclear result EKG result Assessment/Plan Chest tightness at rest, most likely due to uncontrolled hypertension Recent echo 05/04/2025 was normal with normal ejection fraction and no wall motion abnormality Recent Lexiscan nuclear stress test 03/04/2025 normal without evidence of ischemia On aspirin and carvedilol, no recurrence Essential hypertension, on carvedilol 25 mg twice daily, well-controlled Hyperlipidemia, not on medications due to elevated liver enzyme. Lipids appear better on the last lipids profile September 2024 Type 2 diabetes mellitus, on Trulicity and Farxiga and metformin last HbA1c around 7% per patient report Obesity, BMI 32.2 kg/m?? Fatty liver with elevated liver enzyme Psoriasis, on Humira Hypothyroidism Chronic back pain GERD Plan: Continue current medications including aspirin and carvedilol I asked her to continue to check her blood pressure and call if it persists above 140/80 Now that her diabetes under better control I will get fasting lipids with liver enzymes and HbA1c. In depends on that I will decide if she needs to be on cholesterol-lowering medication Patient was encouraged to continue to work on getting her diabetes under good control and also to try to exercise and follow a low calorie low-carb diet in order to lose weight Follow-up in 6 months or sooner if needed Jolene Ruby MD,FACC documented in this encounter Plan of Treatment NameTypePriorityAssociated DiagnosesOrder ScheduleLipid panelLabRoutine Pure hypercholesterolemia Expected: 06/11/2025 (Approximate), Expires: 06/11/2026STLabRoutine Pure hypercholesterolemia Expected: 06/11/2025 (Approximate), Expires: 06/11/2026LTLabRoutine Pure hypercholesterolemia Expected: 06/11/2025 (Approximate), Expires: 06/11/2026Hemoglobin A5pCgcQrpxtnl Diabetes mellitus type II, non insulin dependent (CMS/HCC) Expected: 06/11/2025 (Approximate), Expires: 06/11/2026documented as of this encounter Visit Diagnoses Diagnosis Precordial pain- Primary Essential hypertension Unspecified essential hypertension Pure hypercholesterolemia Diabetes mellitus type II, non insulin dependent (CMS/HCC) Type II or unspecified type diabetes mellitus without mention of complication, not stated as uncontrolled Fatty liver Other chronic nonalcoholic liver disease Body mass index (BMI) of 32.0-32.9 in adult Hypothyroidism, adult Other specified acquired hypothyroidism documented in this encounter Care Teams Team MemberRelationshipSpecialtyStart DateEnd Date Austin Kent PA [address] [place] [id number] PCP - GeneralPhysician Xecuhwkds77/17/25documented as of this encounter
--- OUTSIDE RECORDS SUMMARY | 2025-06-18 10:14 | XMS_ITS | Clinical Summary ---
Demographics Address [address] [place] [address] Mobile Phone Preferred Language en Marital Status Single Synagogue Affiliation Unknown Race Other Race Ethnic Group or Author Organization [facility] Address [address] [facility] [place] [address] Care Team Providers Care Oil Heater Operator Name Role Phone Unavailable Primary Care Provider Unavailabl e Source Comments The following information is NOT included in Care Everywhere downloads:Psychiatric notes, ECG results, Cardiac Rehab notes, Pulmonary Function notes, data from SmartForms (includes but not limited toPregnancy data,audiograms, eye exams, pre-surgical evaluation notes, well-child exam data).[facility] Immunizations ImmunizationAdministration DatesNext DueInfluenza, injectable, quadrivalent, preservative free (OYV=377)05/26/2021Tdap (RIO=778)07/16/2020 Social History Tobacco UseTypesPacks/DayYears UsedDateSmoking Tobacco: Never Assessed CommentsUnknownSex and Gender InformationValueDate RecordedSex Assigned at Not on fileLegal NdnPzyzfd90/17/2023 4:08 PM EDTGender IdentityNot on fileSexual OrientationNot on file Plan of Treatment Health MaintenanceDue DateLast IqnrUfxsejctLxyshghycyd1963HIV Test 1978Hepatitis A (HAV) Vaccine (optional start 19+ years)1982Pap Smear05/12/19840956Dyefpkgmcop72/18/2003CRC Liemchrdi18/18/7955Inpccedphbl50/18/2008 Cologuard (Stool DNA)2008FIT2008Pneumococcal Vaccine(s) (50+ yrs) (1 of 1 - PCV)2013Shingles (RZV) Vaccine (1 of 2)2013Hepatitis B (HBV) Vaccine (optional start 60+ years)3COVID-19 Vaccine (2024- season)2025Influenza Vaccine (#1)5107/26/2020Tetanus (Td or Tdap) Kbwosfk66RSV vaccine (adult) (1 - 1-dose 75+ series)2038 Tdap FyczyhrUffuxlbqt66/22/2020Hepatitis C AzhdczlgMqaefimqs88/02/2024 Insurance * Guarantor: Loreto Severino TypeRelation to PatientDate of BirthPhone Billing AddressPersonal/QsvfgaFxof1965 [address] [place] [id number] * Guarantor: Loreto Severino TypeRelation to PatientDate of BirthPhone Billing AddressPersonal/XdukprLmbg1965 [address] [place] [id number] * Guarantor: Loreto Severino TypeRelation to PatientDate of BirthPhone Billing AddressDental LyoessUker1965 [address] [place] [id number]
--- OUTSIDE RECORDS SUMMARY | 2025-06-18 10:14 | XMS_ITS | Clinical Summary ---
Author Organization [facility] Address [address] [place] [address] Care Team Providers Care Pearl Digger Name Role Phone Austin Kent Primary Care Provider [phone] Allergies Active AllergyReactionsCriticalityNoted DateCommentsBlack Pepper-Turmeric 11/18/2023 Other Reaction(s): sneezing Medications MedicationSigDispense QuantityRefillsLast FilledStart DateEnd DateStatus aspirin 81 MG chewable tablet Chew 81 mg in the morning.Active carvedilol (Coreg) 12.5 MG tablet Active DULoxetine (Cymbalta) [address] capsule 1 (one) time each day at the same time06/29/2023ctive famotidine (Pepcid) 20 MG tablet 1 (one) time each day at the same timeActive Lancets (OneTouch Delica Plus Ptxikn70O) [facility] 04/14/2023ctive metFORMIN (Glucophage) 500 MG tablet Active Januvia 100 MG tablet 1 (one) time each day at the same timeActive clobetasol (Temovate) 0.05 % cream 1 Application every 12 (twelve) hours05/26/2023ctive triamcinolone (Kenalog) 0.1 % cream Indications:Psoriasis vulgarisApply to affected areas, up to twice a day when flared, do not use one the face, groin, or underarms, 30 day supply 80 g 11011/18/2023ctive levothyroxine (Synthroid, Levoxyl) 75 MCG tablet 01/23/2024ctive omeprazole (PriLOSEC) [address] capsule Active ciclopirox (Penlac) 8 % solution 4Active Trulicity 0.75 MG/0.5ML solution auto-injector 5Active metFORMIN (Glucophage) 1000 MG tablet 5Active Taltz 80 MG/ML injection Indications:Plaque psoriasisInject 1 mL (80 mg) under the skin every 28 (twenty- eight) days Inject 80 mg (contents of ONE pen) under the skin every 28 days 1 each 5Active meloxicam (Mobic) 15 MG tablet Indications:Acute pain of right shoulderTake 1 tablet (15 mg) by mouth Daily Take with food 30 tablet Expired Additional Information Patient taking differently:15 mg Oral Daily,(No times of day reported), Take with food, Reported on 05/08/2025 Active Problems No known active problems Encounters DateTypeDepartmentCare TnqjAlehdhpsnjn46/22/2025Telephone [facility] [address] [place] [address] Halina Cavazos, WASHER AND CRUSHER TENDER Med Refill (Taltz)05/10/2025Results Follow-Up [facility] [address] [place] [address] Ailin Madsen APRN-KIMBERLEY QuantiFERON TB GOLD PLUS, QUANTIFERON-TB GOLD PLUS05/08/2025 3:40 PM EDTOffice Visit [facility] [address] [facility] [address] [place] [address] Ailin Madsen BIOFUELS ENGINEERING MANAGER-KIMBERLEY Psoriasis vulgaris; High risk medication use; Psoriatic arthritis (HCC)05/08/2025amboo flowsheet [facility] [address] [place] [address] Ailin Madsen APRN-MANAGER [employer] 05/08/20250824Sgblxx46/16/2025 10:45 AM EDTOffice Visit [facility] [address] [place] [address] Sukumar Valera PA Acute pain of right shoulder (Primary Dx); Arthritis of right acromioclavicular joint04/10/2025amboo flowsheet [facility] [address] [place] [address] Sukumar Valera PA 04/10/2025Travelfrom Last 3 Months Family History RelationNameStatusCommentsFatherDeceasedMotherAliveSonAlive Social History Tobacco UseTypesPacks/DayYears UsedDateSmoking Tobacco: NeverSmokeless Tobacco: Never Tobacco Cessation:Counseling Given: Not Answered Alcohol UseStandard Drinks/WeekCommentsNot Currently0 (1 standard drink = 0.6 oz pure alcohol)CommentsUnknownSex and Gender InformationValueDate Recorded Sex Assigned at WltlsRyhbfh73/05/2024 9:18 AM EDTLegal EemQuikwr49/15/2023 11:07 PM EDTGender OurfmafxRpjnzv10/05/2024 9:18 AM EDTSexual OrientationNot on file Last Filed Vital Signs Vital SignReadingTime TakenCommentsBlood Pressure--Pulse--Temperature-- Respiratory Rate--Oxygen Saturation--Inhaled Oxygen Concentration--Upqkps95.2 kg (190 lb)05/22/2024 3:19 PM QJKZovrnm929 cm (5' 3 )05/01/2024 11:34 AM EDTBody Mass Index33.6605/01/2024 11:34 AM EDT Plan of Treatment DateTypeDepartmentCare Team (Latest Contact Info)Vhimkstlrze32/15/2026 2:30 PM EDTOffice Visit [facility] [address] [place] [address] Ailin Madsen, TAYLOR-MANAGER [employer] [address] [place] [address] Procedures Procedure NamePriorityDate/TimeAssociated DiagnosisCommentsQUANTIFERON-TB GOLD MTEETdhmton45/14/2025 4:23 PM EDT QUANTIFERON TB GOLD DASYBtwjtjx56/14/2025 4:23 PM EDT from Last 3 Months Results * QUANTIFERON-TB GOLD PLUS (05/08/2025 4:23 PM EDT)ComponentValueRef RangeTest MethodAnalysis TimePerformed AtPathologist SignatureQFTB CRITERIAComment [facility]ABCORPComment: QuantiFERON-TB Gold Plus is a qualitative indirect test for M tuberculosis infection (including disease) and is intended for use in conjunction with risk assessment, radiography, and other medical and diagnostic evaluations. The QuantiFERON-TB Gold Plus result is determined by subtracting the Nil value from either TB antigen (Ag) value. The Mitogen tube serves as a control for the test. TB1-NIL0.01IU/mLLABCORPTB2-NIL0.02IU/mLLABCORPNIL0.01IU/mLLABCORPMITOGEN-NIL >10.00IU/mLLABCORPSpecimen (Source)Anatomical Location / LateralityCollection Method / VolumeCollection TimeReceived Time05/08/2025 4:23 PM EDT1 Comment:BLOOD, VENOUS Narrative [facility] - 05/10/2025 7:06 AM EDT Performed at: 01 - [facility] [address] ??[id number] Electrical Continuity Inspector: Timothy Selby PhD, Phone: ??[phone] Authorizing ProviderResult TypeResult StatusNatalie Ivette Madsen BIOFUELS ENGINEERING MANAGER-CNPLAB BLOOD ORDERABLESFinal ResultPerforming OrganizationAddressCity/State/ZIP CodePhone Number [facility] * QuantiFERON TB GOLD PLUS (05/08/2025 4:23 PM EDT)ComponentValueRef RangeTest MethodAnalysis TimePerformed AtPathologist SignatureQUANTIFERON TB GOLD INCUBATIONIncubation performed.LABCORPQUANTIFERON(R)-TB GOLD PLUS, 1 TUBE NegativeNegativeLABCORPComment: No response to M tuberculosis antigens detected. Infection with M tuberculosis is unlikely, but high risk individuals should be considered for additional testing (ATS/IDSA/CDC Clinical Practice Guidelines, 2017). The reference range is an Antigen minus Nil result of <0.35 IU/mL. Chemiluminescence immunoassay methodology Specimen (Source)Anatomical Location / LateralityCollection Method / Volume Collection TimeReceived Time05/08/2025 4:23 PM EDT15Comment:BLOOD, VENOUS Narrative [facility] - 05/10/2025 7:06 AM EDT Performed at: 01 - [facility] [address] ??[id number] Electrical Continuity Inspector: Timothy Selby PhD, Phone: ??[phone] Authorizing ProviderResult TypeResult StatusNatalie A Felter BIOFUELS ENGINEERING MANAGER-CNPLAB BLOOD ORDERABLESFinal ResultPerforming OrganizationAddressCity/State/ZIP CodePhone Number [facility] from Last 3 Months Insurance * Guarantor: Dayana Severino TypeRelation to PatientDate of BirthPhone Billing AddressPersonal/WpzdtmCkzz1965 [facility] [address] [place] [phone] Care Teams Team MemberRelationshipSpecialtyStart DateEnd Date Austin Kent PA [address] [place], [place] [id number] PCP - GeneralFamily Medicine03/13/25
--- OUTSIDE RECORDS SUMMARY | 2025-06-18 10:14 | XMS_ITS | Clinical Summary ---
Author Organization [facility] Address [address] [place] [address] Care Team Providers Care Tobacco Warehouse Agent Name Role Phone Austin Kent Primary Care Provider [phone] Allergies Active AllergyReactionsCriticalityNoted HikbHuxmlcwdKvpmtdrc-Dytgah-Wkqgl Pepper Other11/18/2023 Other Reaction(s): sneezing Medications MedicationSigDispense QuantityRefillsLast FilledStart DateEnd DateStatus SITagliptin phosphate (Januvia) 25 mg tablet Take 25 mg by mouth in the morning.Active DULoxetine (Cymbalta) [address] capsule Take 20 mg by mouth in the morning. Do not crush or chew.Active adalimumab (Humira,CF, Pen Srpg-Ey-Hngn HS) 80 mg/0.8 mL-40 mg/0.4 mL pen injector kit pen-injectorstarter kit Inject 80 mg (contents of one pen) under the skin on day 1. Inject 40 mg (contents of one pen) under the skin on day 8 and day 22.4Active levothyroxine (Synthroid, Levoxyl) 75 mcg tablet TAKE 1/2 A TABLET BY MOUTH IN THE MORNING ON AN EMPTY STOMACHActive metFORMIN (Glucophage) 500 mg tablet TAKE 1 TABLET BY MOUTH EVERY DAY WITH A MEAL FOR 90 DAYSActive Trulicity 1.5 mg/0.5 mL pen injector as directed Subcutaneous once weekly for 28 days5Active omeprazole (PriLOSEC) [address] capsule TAKE 1 CAPSULE BY MOUTH EVERY DAY 30 MINUTES BEFORE MORNING MEAL5Active Taltz Autoinjector 80 mg/mL auto-injector as directed Ydekftlchlyb72/12/2024Active Farxiga 10 mg Take 1 tablet by mouth in the morning.5Active carvedilol (Coreg) 25 mg tablet Indications:Essential hypertensionTake 1 tablet (25 mg) by mouth with breakfast and with evening meal. 60 tablet 5004/06/2026ctive aspirin 81 mg EC tablet Indications:Precordial painTake 1 tablet (81 mg) by mouth in the morning. 30 tablet 11004/06/22896704/06/2026ctive Active Problems ProblemNoted DateDiagnosed XvhnHdcxovw37/14/2025ilateral foot pain06/08/2025 Body mass index (BMI) of 32.0-32.9 in adult05/17/2025hronic bilateral low back pain without dsthohlm13/23/2025 Overview (06/08/2025): Follows with Chiropractor Hypothyroidism, adult05/17/2025Less than a high school exdwevk8505/17/2025 Kryrwozmeigqf49/23/4374Msgdmjulc50/23/2025Dietary counseling and surveillance 05/17/2025Type 2 diabetes mellitus with diabetic polyneuropathy, without long- term current use of dkgmchj0705/17/2025Precordial pain04/06/2025Essential glxzgtylestq41/12/2025hronic GERD10/17/2024Pure dospswtxpjvbhgtucjhl36/19/2025 Positive colorectal cancer screening using Cologuard test03/31/2024enign hypertensive heart disease without heart tlvhchi8912/09/2022iabetes mellitus type II, non insulin yrerodaji85/17/2023Fatty liver12/09/2022 Resolved Problems ProblemNoted DateDiagnosed DateResolved DateMixed ecmstqbkfzyfiu94/17/2023 06/11/2025 Encounters DateTypeDepartmentCare PtqrEwqsthrjklg54/17/2025 2:20 PM ESTOffice Visit [facility] [place] [address] [place] [address] Jolene Ruby MD Precordial pain (Primary Dx); Essential hypertension; Pure hypercholesterolemia; Diabetes mellitus type II, non insulin dependent (CMS/HCC); Fatty liver; Body mass index (BMI) of 32.0-32.9 in adult; Hypothyroidism, adult05/26/2025Results Follow-Up [facility] [address] [place] [address] Jolene Ruby MD Complete Echo (TTE) w/wo Imaging Agent, Strain, 3D, Bubble Study, Lexiscan Stress Myocardial Perfusion Ixqdbqs5905/07/2025Orders Only [facility] [address] [facility] [place] [address] ProviderDelia MD 04/06/2025 1:[address] [address] [facility] [place] [place] [address] Jolene Ruby MD Precordial pain (Primary Dx); Essential hypertension; Pure hypercholesterolemia; Fatty liver; Diabetes mellitus type II, non insulin dependent (CMS/HCC)from Last 3 Months Family History RelationNameStatusCommentsBrotherFatherDeceasedMotherAliveSister Social History Tobacco UseTypesPacks/DayYears UsedDateSmoking Tobacco: NeverSmokeless Tobacco: Former Tobacco Cessation:Counseling Given: Not Answered Alcohol UseStandard Drinks/WeekCommentsYes1 (1 standard drink = 0.6 oz pure alcohol)[place] Safety & EnvironmentAnswerDate RecordedFear of Current or Ex-Partner Not on file09/16/2023Emotionally AbusedNot on file09/16/2023hysically AbusedNot on file09/16/2023Sexually AbusedNot on file09/16/2023hysically or Sexually AbusedNot on file09/16/2023CommentsUnknownSex and Gender Information ValueDate RecordedSex Assigned at RjgibCqpilk81/08/2025 1:56 PM EDTLegal Sex Dpgaok4810/14/2022 10:51 AM EDTGender OxvxrjycWbuogx66/08/2025 1:56 PM EDTSexual OrientationHeterosexual or Iyuglbia21/08/2025 1:56 PM EDT Last Filed Vital Signs Vital SignReadingTime TakenCommentsBlood Flykhfzm547/7811 2:04 PM EST Wkmer075806/11/2025 2:04 PM ESTTemperature--Respiratory Rate--Oxygen Ntqivvemnz03% 06/11/2025 2:04 PM ESTInhaled Oxygen Concentration--Txrjoq85.8 kg (176 lb) 06/11/2025 2:04 PM ZAXXbflcr663.5 cm (5' 2 )06/11/2025 2:04 PM ESTBody Mass Index32.19108/11/2024 2:04 PM EST Plan of Treatment Health MaintenanceDue DateLast DoneCommentsCT Kalakearzvfb1963Diabetes: Hemoglobin A1C1963FOBT1963 1186Rkrfwohaunceh1963Diabetes: Retinopathy Znzkbafev37/18/1973Depression Zqqjstgfb61/18/1975Diabetes: Urine Protein Sowietspt69/18/1982Pneumococcal Vaccine: Pediatrics (0 to 5 Years) and At-Risk Patients (6 to 64 Years) (1 of 2 - PCV)1982Pap Smear1984 Cervical Cancer Eqgqbbqpm53/18/1993HPV/Qzgslg2205/12/19936272Cgnvmvowi37/18/2003Zoster Vaccines (1 of 2)2013FIT504COVID-19 Vaccine (1 - season)2025Influenza Vaccine (#1)511/07/2020FIT-DNA11/03/2026 11/04/2023, 1Adult Vbzsuir76Colonoscopy03/31/2034 03/31/2024olorectal Cancer Hiqauydna05/06/2034HIB VaccinesAged OutNo longer eligible based on patient's age to complete this topicHPV VaccinesAged OutNo longer eligible based on patient's age to complete this topicIPV VaccinesAged OutNo longer eligible based on patient's age to complete this topicMeningococcal B VaccineAged OutNo longer eligible based on patient's age to complete this topicMeningococcal VaccineAged OutNo longer eligible based on patient's age to complete this topicRotavirus VaccinesAged OutNo longer eligible based on patient's age to complete this topic Procedures Procedure NamePriorityDate/TimeAssociated DiagnosisCommentsLEXISCAN STRESS MYOCARDIAL PERFUSION RMVGASITxecxeo96/10/2025 9:15 AM EDT COMPLETE TRANSTHORACIC ECHO (TTE) W/WO IMAGING AGENT, STRAIN, 3D, BUBBLE STUDY Qciexbs5505/04/2025 9:15 AM EDT ECG 12-CUEFHkdspgm53/12/2025 2:58 PM EDT Precordial pain from Last 3 Months Results * Lexiscan Stress Myocardial Perfusion Imaging (05/04/2025 9:15 AM EDT) Anatomical RegionLateralityModalityOther Narrative Authorizing ProviderResult TypeResult StatusHistorical Provider [facility] STRESS PROCEDURESFinal Result * Complete Echo (TTE) w/wo Imaging Agent, Strain, 3D, Bubble Study (05/04/2025 9:15 AM EDT)Anatomical RegionLateralityModalityUltrasound Narrative Authorizing ProviderResult TypeResult StatusHistorical Provider [facility] ECHO PROCEDURESFinal Result * ECG 12 lead (04/06/2025 2:58 PM EDT)Specimen (Source)Anatomical Location / LateralityCollection Method / VolumeCollection TimeReceived Time Narrative Jolene Ruby MD - 04/06/2025 2:58 PM EDT normal sinus rhythm, heart rate 74 bpm, left axis deviation, voltage criteria for LVH, no significant change in comparison to EKG from 03/03/2024 Authorizing ProviderResult TypeResult StatusJolene Ruby MDECG ORDERABLESFinal Result from Last 3 Months Insurance * Guarantor: Dayana Severino TypeRelation to PatientDate of BirthPhone Billing AddressPersonal/KqupwlEydb1965 [address] [place] [address] Care Teams Team MemberRelationshipSpecialtyStart DateEnd Date Austni Kent PA [address] [place] [phone] PCP - GeneralPhysician Eprjcccem57/17/25
--- OUTSIDE RECORDS SUMMARY | 2025-06-18 10:14 | XMS_ITS | Clinical Summary ---
Author Organization [facility] Address [address], [address] [place] [address] Care Team Providers Care Electrical Designer Drafter Name Role Phone Austin Kent Primary Care Provider [phone] Allergies Active AllergyReactionsCriticalityNoted DateCommentsBlack Pepper-Turmeric 11/18/2023 Other Reaction(s): sneezing Medications MedicationSigDispense QuantityRefillsLast FilledStart DateEnd DateStatus triamcinolone (KENALOG) 0.1 % cream APPLY TO AFFECED AREAS UP TO TWICE A DAY WHEN FLARED *DO NOT USE ON FACE/GROIN/UNDER ARMS*Active SITagliptin (JANUVIA) 25 MG tablet Take 1 tablet by mouth dailyActive JANUVIA 100 MG tablet Take 1 tablet by mouthActive metFORMIN (GLUCOPHAGE) 500 MG tablet TAKE 1 TABLET BY MOUTH EVERY DAY WITH A MEAL FOR 90 DAYSActive losartan-hydroCHLOROthiazide (HYZAAR) 50-12.5 MG per tablet Take 1 tablet by mouth every mbmbtiy5611/28/2022ctive levothyroxine (SYNTHROID) 75 MCG tablet TAKE 1/2 A TABLET BY MOUTH IN THE MORNING ON AN EMPTY YURDNHZ0101/23/2024ctive levothyroxine (SYNTHROID) 25 MCG tablet TAKE 1 TABLET BY MOUTH EVERY DAY IN THE MORNING ON AN EMPTY STOMACH FOR 30 DAYS 01/11/2024ctive hydrOXYzine pamoate (VISTARIL) 25 MG capsule TAKE 1 CAPSULE BY MOUTH TWICE A DAY MMRPKJ8212/17/2023ctive ONETOUCH ULTRA strip USE TO CHECK BLOOD SUGAR ONCE A DAY01/02/2024ctive DULoxetine (CYMBALTA) 60 MG extended release capsule TAKE 1 CAPSULE BY MOUTH EVERY DAY IN THE MORNING FOR 90 DAYSActive carvedilol (COREG) 12.5 MG tablet TAKE 1 TABLET (12.5 MG) BY MOUTH WITH BREAKFAST AND EVENING MEAL11/01/2023ctive aspirin 81 MG chewable tablet Take 1 tablet by mouth dailyActive cetirizine (ZYRTEC) 10 MG tablet every 24 hours06/22/2023ctive clobetasol (TEMOVATE) 0.05 % cream 1 Application in the morning and 1 Application in the evening.05/26/2023ctive cyclobenzaprine (FLEXERIL) 10 MG tablet every 24 hours06/22/2023ctive albuterol sulfate HFA (PROVENTIL;VENTOLIN;PROAIR) 108 (90 Base) MCG/ACT inhaler TAKE 1-2 PUFFS [address] INHALATION ROUTE USING EVERY 4-6 HOURS HTVMKQ8903/28/2023 Active HUMIRA, 2 PEN, 40 MG/0.4ML PNKT Inject 40 mg into the skin every 14 days09/28/2023ctive Adalimumab (HUMIRA-PSORIASIS/UVEIT STARTER) 80 MG/0.8ML & 40MG/0.4ML PNKT Inject 80 mg (contents of one pen) under the skin on day 1. Inject 40 mg (contents of one pen) under the skin on day 8 and day 22.09/09/2023ctive TRULICITY 0.75 MG/0.5ML SOAJ SC injection as directed Subcutaneous once weekly for 28 days5Active TALTZ 80 MG/ML SOAJ prefilled syringe Inject into the skin06/06/2024ctive LOSARTAN POTASSIUM PO Losartan Potassium ActiveActive omeprazole (PRILOSEC) 40 MG delayed release capsule Take 1 capsule by mouth every morning (before breakfast) 30 capsule 5Active Active Problems ProblemNoted DateDiagnosed DateChronic GERD10/17/2024Positive colorectal cancer screening using Cologuard test03/31/2024enign hypertensive heart disease without heart bixwwnf2012/09/2022iabetes mellitus type II, non insulin dependent 12/09/2022Mixed rbedwcuzktexdy72/17/2023 Resolved Problems ProblemNoted DateDiagnosed DateResolved DateScreening for colon nujeht9203/31/2024 04/30/2024 Encounters DateTypeDepartmentCare LcgjJrrimpfwlnj52/29/2025[facility] SURGERY Part of [address] [place] [address] Jhonatan Suarez MD Medication Refillfrom Last 3 Months Family History Medical HistoryRelationNameCommentsColon CancerNeg HxColon PolypsNeg Hx Social History Tobacco UseTypesPacks/DayYears UsedDateSmoking Tobacco: FormerCigarettes Smokeless Tobacco: Never Tobacco Cessation:Counseling Given: Not Answered Comments:Very sporadic. Once every few months. Alcohol UseStandard Drinks/WeekCommentsYes0 (1 standard drink = 0.6 oz pure alcohol)1 beer every fewInterpersonal Safety Domain Source: IP Abuse Screening AnswerDate RecordedPhysical iwgkzBnhind84/16/2025Verbal cozdgSvkflf75/16/2025 Emotional ogxfiXznbyl63/16/2025Financial wxfduAlqgjb75/16/2025Sexual abuseDenies 11/08/2024CommentsNoSex and Gender InformationValueDate RecordedSex Assigned at BirthNot on fileLegal IdwUxpchg71/21/2021 7:26 PM EDTGender Identity Not on fileSexual OrientationNot on file Last Filed Vital Signs Vital SignReadingTime TakenCommentsBlood Ahlqloje231/7704 10:15 AM EDT Sfrjt968711/08/2024 10:15 AM KTADcaaajcejyn98 ??C (96.8 ??F)11/08/2024 9:36 AM EDT Respiratory Bqzj255211/08/2024 10:15 AM EDTOxygen Sjqgusyrko67%11/08/2024 10:15 AM EDTInhaled Oxygen Concentration--Efklvk02.9 kg (180 lb 9.6 oz)11/08/2024 7:45 AM GDKMprfxq470.5 cm (5' 2 )11/08/2024 7:45 AM EDTBody Mass Index33.03011/08/2024 7:45 AM EDT Plan of Treatment Health MaintenanceDue DateLast IkiaBlhungttE6F test (Diabetic or Prediabetic) 1973Diabetic foot exam05/12/19737220Tozsye49/18/1973Depression Screen 1975HIV bvkkap1905/12/1978Diabetic Alb to Cr ratio (uACR) test1981 Diabetic retinal exam1981Hepatitis C lfmrze7805/12/1981Pneumococcal 50+ years Vaccine (1 of 2 - PCV)1982Pap smear1984Cervical cancer screen 1993HPV (without or with Pap)1993Breast cancer ewxtew8405/12/2003 FIT/FOBT: Average risk2008Sigmoidoscopy/CT uzslsqvdahvo89/18/2008Shingles vaccine (1 of 2)2013Flu vaccine (#1)/OVID-19 Vaccine (1 - 2023- season)2025GFR test (Diabetes, CKD 3-4, OR last GFR 15-59) 604/08/2024, 01/13/2021Fecal-DNA (Cologuard): Average risk11/03/2026 11/04/2023, 1DTaP/Tdap/Td vaccine (2 - Td or Tdap) Sreznoowprt15/06/203409/12/2023, 4Colorectal Cancer Uqdvxl3003/31/2034 Respiratory Syncytial Virus (RSV) or age 60 yrs+ (1 - 1-dose 75+ series)2038Hepatitis A vaccineAged OutNo longer eligible based on patient's age to complete this topicHepatitis B vaccineAged OutNo longer eligible based on patient's age to complete this topicHib vaccineAged OutNo longer eligible based on patient's age to complete this topicMeningococcal (ACWY) vaccineAged OutNo longer eligible based on patient's age to complete this topicMeningococcal B vaccineAged OutNo longer eligible based on patient's age to complete this topicPolio vaccineAged OutNo longer eligible based on patient's age to complete this topic Procedures Procedure NamePriorityDate/TimeAssociated DiagnosisCommentsBASIC METABOLIC PANEL Xxjasqa3010/25/2024 1:00 PM EDT Pre-op testing COLONOSCOPY SKLIMIHHJDliveah39/06/2024 9:52 AM EDT from Last 3 Months or Most Recently Relevant to Health Maintenance Results * (ABNORMAL) Basic Metabolic Panel (10/25/2024 1:00 PM EDT)ComponentValueRef RangeTest MethodAnalysis TimePerformed AtPathologist XtrcjbuawXrfksm727372 - 145 mmol/L10/25/2024 1:00 PM [facility] LABPotassium4.1 3.7 - 5.3 mmol/L10/25/2024 1:00 PM [facility] LABChloride 9998 - 107 mmol/L10/25/2024 1:00 PM [facility] LIIIM58265 - 31 mmol/L10/25/2024 1:00 PM [facility] LABAnion Kfw892 - 16 mmol/L10/25/2024 1:00 PM [facility] PMZEhjtxxq746(H) 74 - 99 mg/dL10/25/2024 1:00 PM [facility] JNPBWM527 - 23 mg/dL10/25/2024 1:00 PM [facility] LABCreatinine0.70.50 - 0.90 mg/dL10/25/2024 1:00 PM [facility] LABEst, Glom Filt Rate>90>60 mL/min/1.16m36310/25/2024 1:00 PM [facility] Comment: ? These results are not intended for use in patients <18 years of age. ? eGFR results are calculated without a race factor using the 2020 CKD-EPI equation. Careful clinical correlation is recommended, particularly when comparing to results calculated using previous equations. The CKD-EPI equation is less accurate in patients with extremes of muscle mass, extra-renal metabolism of creatine, excessive creatine ingestion, or following therapy that affects renal tubular secretion. BUN/Creatinine Rjrak860 - 1:00 PM [facility] XKFVgoxwql48.08.6 - 10.4 mg/dL10/25/2024 1:00 PM [facility] LABSpecimen (Source)Anatomical Location / LateralityCollection Method / Volume Collection TimeReceived TimeBloodBLOOD SPECIMEN / Pbsiqzg5010/25/2024 1:00 PM EDT 10/25/2024 1:01 PM EDT Narrative Authorizing ProviderResult TypeResult StatusCandy Scott CAREER LAW CLERK - CNPCHEMISTRY ORDERABLESFinal ResultPerforming OrganizationAddressCity/State/ZIP CodePhone Number [facility] [address] [place] [address], [facility] [phone] * Colonoscopy (03/31/2024 9:52 AM EDT)Specimen (Source)Anatomical Location / LateralityCollection Method / VolumeCollection TimeReceived Time Narrative Epic, User - 03/31/2024 9:52 AM EDT No dictation Authorizing ProviderResult TypeResult StatusJhonatan Suarez MDENDOSCOPY ORDERABLESFinal Result from Last 3 Months or Most Recently Relevant to Health Maintenance Insurance * Guarantor: Dayana SeverinoAccount TypeRelation to PatientDate of BirthPhone Billing AddressPersonal/KkaqhkAedq1965 [address] [place] [address] MemberSubscriberPlan / Payer (Effective 2024-Present)Name:Dayana Severino Relation to Subscriber:SelfName:Dayana Severino Payer ID:Not on file Type:Not on file Address: [address] [address] Care Teams Team MemberRelationshipSpecialtyStart DateEnd Date Austin Kent PA [address] [place], [place] [id number] PCP - GeneralPhysician Assistant09/25/24
--- OUTSIDE RECORDS SUMMARY | 2025-06-18 10:14 | XMS_ITS | Patient Health Record ---
Author Organization [facility] Address [address] [place] [address] Care Team Providers Care Acquisition Advisor Name Role Phone Dr. Nate Queen Primary Care Provider Lary Hansen Unavailable Unavailable Emily Chavez Unavailable [phone] Reason For Referral No Information Encounters Encounter Location Date Provider Diagnosis [facility] [address] [place] [address] 04/26/2025 Emily Rasmussen [facility] [address] [place] [address]/30/2025Emily RasmussenDental caries on pit and fissure surface penetrating into dentin K02.52 [facility] [address] [place] [address]/13/20[facility] [place] [address] 02/06/2025Emily RasmussenEncounter for dental examination and cleaning with abnormal findings Z01.21 ; Other dental procedure status Z98.818 ; Disturbances in tooth eruption K00.6 and Dental caries on pit and fissure surfacepenetrating into dentin K02.52 Assessments Encounter Date Diagnosis (ICD Code) Assessment Notes Treatment Notes Treatment Clinical Notes Section Notes 02/06/2025 Encounter for dental examination and cleaning with abnormal findings (ICD-10 - Z01.21) 05/24/2025Dental caries on pit and fissure surface penetrating into dentin (ICD- 10 - K02.52)02/06/2025Other dental procedure status (ICD-10 - Z98.818)02/06/2025 Disturbances in tooth eruption (ICD-10 - K00.6)02/06/2025Dental caries on pit and fissure surface penetrating into dentin (ICD-10 - K02.52) Plan Of Treatment Next Appt Details Provider Name:Lary Hansen, 09/06/2025 03:00:00 PM, [address], [place], [address], Provider Name:Emily Rasmussen, 10/19/2025 01:30:00 PM, [address] [place], [address], Provider Name:Emily Rasmussen, 10/22/2025 01:00:00 PM, [address] [place], [address], Insurance Providers Payer Name Payer Address Payer Phone Subscriber Number Group Number Insured Name Patient Relationship to Insured Coverage Start Date Coverage End Date [facility] [address] [place] [address] [id number] Meng STEELE - patient is the [id number] 2022ental Wrap [facility] [address] [place] [id number], MARIASelf - patient is the [id number] 2022
--- OUTSIDE RECORDS SUMMARY | 2025-06-18 10:14 | XMS_ITS | Clinical Summary ---
Author Organization [employer] Address [id number] [place] [address] Care Team Providers Care In Tube Conversion Technician Name Role Phone Kvng Carter MD Primary Care Provider + Allergies No known active allergies Social History Tobacco UseTypesPacks/DayYears UsedDateSmoking Tobacco: Never AssessedChildcare AnswerDate QqawnzyiNodghkcnlHebkivq61/04/2020EmploymentAnswerDate Recorded LmcebvztzvBpeevff44/04/2020Purpose - LifeAnswerDate RecordedPurpose and direction in wezbBzokzyd62/11/2021CommentsUnknownSex and Gender InformationValueDate RecordedSex Assigned at BirthNot on fileLegal SexFemale 06/28/2020 11:10 AM ESTGender IdentityNot on fileSexual OrientationNot on file Plan of Treatment Health MaintenanceDue DateLast DoneCommentsDepression Ezvtcfixh66/18/1975Tobacco Ucfzzqzhw47/18/1975Adult BMI Nahzwmbsr14/18/1981Pap Smear1984Zoster (Shingles) Vaccine (1 of 2)2013Influenza Gnvlqvr67/01/242673/07/2020 DTaP,Tdap and Td Vaccines (2 - Td or Tdap)RSV ( or age 60+ yrs) (1 - 1-dose 75+ series)2038 [employer] Not on file Insurance * Guarantor: Dayana SeverinoAccount TypeRelation to PatientDate of PhoneBilling AddressPersonal/JjeyprLvxj1965 [address] [place] [address] Care Teams Team MemberRelationshipSpecialtyStart DateEnd Date Kvng Carter MD [address] [place] [address] PCP - GeneralInternal Limkvzcu58/4/20
[2025-06-18 10:48] LABS: Alanine Aminotransferase 158 U/L (14-59); Aspartate Amino Transferase 57 U/L (15-37); Cholesterol 159 mg/dL (<=200); HDL Cholesterol 43 mg/dL (40-60); Triglycerides 114 mg/dL (<=150); VLDL CHOLESTEROL 22.8 mg/dL
== END 2025-06-18 10:03 | disposition home or self-care (01) ==
PROVIDERS: PCP Nurse Practitioner; Visit Provider Internal Medicine Cardiovascular Disease
DX: E78.2 Mixed hyperlipidemia (principal); E11.9 Type 2 diabetes mellitus without complications
CPT/HCPCS: 36415; 80061; 83036; 84450; 84460